=== PATIENT | female | born 1945 | race Caucasian/White ===

== ENCOUNTER 2016-06-02 16:16 | Inpatient (IN) | payer MEDICARE, OTHER ==
--- NOTE | 2016-06-02 17:15 | XR ---
EXAMINATION TYPE: XR chest 1V portable DATE OF EXAM: 06/02/2016 5:05 PM COMPARISON: NONE HISTORY: Heart murmur and blood clots, weakness. TECHNIQUE: Single frontal view of the chest is obtained. FINDINGS: EKG leads noted. There is no focal air space opacity, pleural effusion, or pneumothorax se en. The cardiac silhouette size is within normal limits. The osseous structures are intact. IMPRESSION: No acute process.
[2016-06-02 17:29] LABS: Basophils # (A) 0.1 k/uL (0-0.2); Basophils % (A) 1 %; CHCM 32.7; Eosinophils # (A) 0.4 k/uL (0-0.7); Eosinophils % (A) 4 %; HDW 2.62; HGB 11.4 gm/dL (11.4-16.0); Luc # (Auto) 0.17; Luc % (Auto) 1; Lymphocytes # (A) 2.6 k/uL (1.0-4.8); Lymphocytes % (A) 22 %; MCH 30.2 pg (25.0-35.0); MCHC 31.8 g/dL (31.0-37.0); MCV 95.2 fL (80.0-100.0); Mean Platelet Volume 7.6; Monocytes # (A) 0.5 k/uL (0-1.0); Monocytes % (A) 4 %; Neutrophils # (A) 8.1 k/uL (1.3-7.7); Neutrophils % (A) 68 %; RBC 3.78 m/uL (3.80-5.40); RDW 13.3 % (11.5-15.5); WBC 11.8 k/uL (3.8-10.6); WBC (Perox) 12.28
[2016-06-02 17:37] LABS: Calcium 9.3 mg/dL (8.4-10.2); Potassium 5.3 mmol/L (3.5-5.1); Total Bilirubin 0.4 mg/dL (0.2-1.3); Total Protein 6.5 g/dL (6.3-8.2)
[2016-06-02] MEDS ORDERED: MORPHINE SULFATE 4 MG/ML SYRINGE IV STA (17:47)
--- NOTE | 2016-06-02 18:09 | CT ---
EXAMINATION TYPE: CT abdomen pelvis wo con DATE OF EXAM: 06/02/2016 5:58 PM COMPARISON: October 17, [address] HISTORY: Right lower quadrant pain. CT DLP: 275.40 mGycm Automated exposure control for dose reduction was used. TECHNIQUE: Helical acquisition of images was performed from the lung bases through the pelvis. FINDINGS: LUNG BASES: No significant abnormality is appreciated. LIVER/GB: No significant abnormality is appreciated. PANCREAS: No significant abnormality is seen. SPLEEN: No significant abnormality is seen. ADRENALS: There is stable appearance to the previously noted hypodense left adrenal mass, consistent with lipid rich adenoma. KIDNEYS: The left kidney is again not demonstrated. The right kidney is hypertrophied and demonstrate s approximately 10 renal calcifications measuring up to 4 mm diameter. These are similar in appearanc e and location compared to prior study. There is no hydronephrosis or hydroureter. RETROPERITONEAL ADENOPATHY: None visualized URINARY BLADDER: No significant abnormality is seen. PELVIC ADENOPATHY: None visualized. OSSEOUS STRUCTURES: There are prominent multilevel degenerative spine changes appreciated. BOWEL: No significant abnormality is seen. OTHER: Noncontrast CT is limited in its sensitivity for focal visceral lesions and for intravascular pathology. IMPRESSION: NO ACUTE PROCESS. SPECIFICALLY, NO CT CORRELATE FOR THE RIGHT LOWER QUADRANT PAIN.
[2016-06-02 18:14] LABS: Appearance,Urine Cloudy (Clear); Bacteria,Urine Many /hpf; Bilirubin,Urine Negative (Negative); Glucose,Urine (UA) 3+ (Negative); Ketones,Urine Negative (Negative); Leukocyte Esterase,Urine Large (Negative); Mucus,Urine Rare /hpf; Nitrite,Urine Positive (Negative); PH, Urine 5.5 (5.0-8.0); Particle Count 7356; Protein,Urine 3+ (Negative); RBC,Urine 4 /hpf (0-5); Specific Gravity,Urine 1.013 (1.001-1.035); Squamous Epithelial Cell,Urine 3 /hpf (0-4); UA Billing (MACRO vs. MICRO) MICRO; Urobilinogen,Urine <2.0 mg/dL (<2.0); WBC,Urine 109 /hpf (0-5)
[2016-06-02] MEDS ORDERED: TOBRAMYCIN PER PHARMACY MISCELLANE SCH (19:15)
[2016-06-02] MEDS ORDERED: MEROPENEM 2 GM in SODIUM CHLORIDE 0.9% 100 ML IVPB STA (19:15)
[2016-06-02] MEDS ORDERED: TOBRAMYCIN SULFATE 80 MG in SODIUM CHLORIDE 0.9% 100 ML IVPB ONE (20:00)
[2016-06-02] MEDS ORDERED: SODIUM CHLORIDE 0.9% 2,000 ML IV ONE (20:13)
[2016-06-02] MEDS ORDERED: NALOXONE 0.4 MG/ML 1 ML VIAL IV PRN (20:22)
[2016-06-02] MEDS ORDERED: ACETAMINOPHEN TAB 325 MG TAB PO PRN (20:22)
[2016-06-02] MEDS ORDERED: oxyCODONE ER 15 MG TAB.ER.12H PO PRN (20:26)
[2016-06-02] MEDS ORDERED: FLUTICASONE 50MCG/SPRAY NASAL 16GM EA NOSTRIL PRN (20:26)
[2016-06-02] MEDS ORDERED: ALBUTEROL NEBULIZED 2.5 MG/3 ML INHALATION PRN (20:26)
--- NOTE | 2016-06-02 20:41 | ED ---
Weakness HPI - General Chief complaint: Weakness Stated complaint: Weakness, Abd Pain Time Seen by Provider: 06/02/16 16:35 Source: patient Mode of arrival: wheelchair Limitations: no limitations - History of Present Illness Initial comments: This patient is a 70-year-old woman who presents to be evaluated for worsening of some generalized weakness and fatigue. She states is been getting worse over the past couple of days. What precipitated her visit today is that she was walking to her car and then nearly passed out. The patient states that she has been having treatment for urinary tract infection but was unable to finish the course of antibiotics due to nausea and vomiting. She does not recall name of the antibiotic. She does have some suprapubic discomfort. Patient has been feeling cold but has not noted a fever. Patient denies any chest symptoms, including no cough, chest pain, dyspnea. MD Complaint: generalized weakness, lack of energy, difficulty walking -: days(s) Location: generalized - Related Data Home Medications Medication Instructions Recorded Confirmed Albuterol Inhaler [Ventolin Hfa 2 puff INHALATION RT-Q6H PRN 06/02/16 06/02/16 Inhaler] Cilostazol [Pletal] 100 mg PO BID 06/02/16 06/02/16 Clopidogrel [Plavix] 75 mg PO DAILY 06/02/16 06/02/16 Ezetimibe [Zetia] 10 mg PO DAILY 06/02/16 06/02/16 Famotidine [Pepcid] 20 mg PO BID 06/02/16 06/02/16 Fluticasone Nasal [place] [Flonase 2 spr EA NOSTRIL DAILY PRN 06/02/16 06/02/16 Nasal [place]] Gabapentin 800 mg PO TID 06/02/16 06/02/16 Hydrocodone/Acetaminophen [[place] 1 tab PO TID 06/02/16 06/02/16 10-325] Insulin NPH Hum/Reg Insulin Hm See Protocol SQ BID 06/02/16 06/02/16 [NovoLIN 70-30 100 UNIT/ML VIAL] Lisinopril [Zestril] 10 mg PO DAILY 06/02/16 06/02/16 Sertraline HCl [Zoloft] 100 mg PO DAILY 06/02/16 06/02/16 oxyCODONE ER [OxyCONTIN 15MG E.R] 15 mg PO DAILY PRN 06/02/16 06/02/16 Allergies Allergy/AdvReac Type Severity Reaction Status Date / Time Iodinated Contrast Media - Allergy Severe Anaphylaxis Verified 06/02/16 16:48 Oral and [Iodinated Contrast Media - IV Dye] Iodine and Iodide Containing Allergy Severe Rash/Hives/ Verified 06/02/16 16:48 Produc Swelling aspirin Allergy Rash/Hives Verified 06/02/16 16:48 cephalexin monohydrate Allergy Swelling Verified 06/02/16 16:48 [From Keflex] ciprofloxacin Allergy Unknown Verified 06/02/16 16:48 Penicillins Allergy Swelling Verified 06/02/16 16:48 Sulfa (Sulfonamide Allergy Rash/Hives Verified 06/02/16 16:48 Antibiotics) Review of Systems ROS Statement: Those systems with pertinent positive or pertinent negative responses have been documented in the HPI. ROS Other: All systems not noted in ROS Statement are negative. Constitutional: Reports: chills, weakness. Denies: fever Respiratory: Denies: cough, dyspnea, hemoptysis Cardiovascular: Reports: syncope (Near syncope). Denies: chest pain, palpitations, edema Gastrointestinal: Reports: abdominal pain (Suprapubic pressure), nausea, vomiting. Denies: diarrhea, constipation Genitourinary: Reports: urgency, dysuria, frequency Musculoskeletal: Denies: back pain Skin: Denies: rash Neurological: Reports: weakness (Neurologic). Denies: headache, numbness, paresthesias Past Medical History Past Medical History: Asthma, Coronary Artery Disease (CAD), Chest Pain / Angina , COPD, CVA/TIA, Diabetes Mellitus, Deep Vein Thrombosis (DVT), Hyperlipidemia, Hypertension, Myocardial Infarction ([place]), Osteoarthritis (OA), Pneumonia, Renal Disease Additional Past Medical History / Comment(s): 02-18-15 ADMITTED TO [facility] WITH C/P ELEVATED TROPS(stated was just d/c from [facility] 02-17-15), UTI. OTHER PAST HX INCLUDES: heart murmur, trouble staying asleep gets up about evry 2 hours. Last Myocardial Infarction Date:: 10 years ago History of Any Multi-Drug Resistant Organisms: None Reported Past Surgical History: Appendectomy, Hysterectomy Additional Past Surgical History / Comment(s): lt femoral-pop bypass and amputation lt 3rd toe Mar 2014. Amputation 2nd, 3rd, 4th toe Past Anesthesia/Blood Transfusion Reactions: No Reported Reaction Past Psychological History: Anxiety, Depression Additional Psychological History / Comment(s): pt stated has some mild depression d/t medical problems but not hopelss-denies any thoughts of harming self or others, no suicidal ideations.stated recent moved to a new apt that has no w/c ramp so she can't use her wheel chair. does use a cane and stated has had some falls. Smoking Status: Former smoker Past Alcohol Use History: None Reported Additional Past Alcohol Use History / Comment(s): Patient is a smoker of 2 packs per day for 55 years stated she quit officially 4 days ago. She denies any medical marijuana, marijuana, street drug use. She denies any alcohol use or abuse. She has been on disability for long period of time. She is currently living alone. Past Drug Use History: None Reported - Past Family History Mother Family Medical History: Cancer, Diabetes Mellitus, Myocardial Infarction ([place]) Father Family Medical History: Renal Disease General Exam Limitations: no limitations General appearance: alert, in no apparent distress, obese Head exam: Present: atraumatic, normocephalic Eye exam: Present: normal appearance. Absent: scleral icterus, conjunctival injection ENT exam: Present: mucous membranes dry Neck exam: Present: normal inspection, full ROM. Absent: meningismus Respiratory exam: Present: normal lung sounds bilaterally. Absent: respiratory distress, wheezes, rales, rhonchi, stridor Cardiovascular Exam: Present: regular rate, normal rhythm, systolic murmur. Absent: diastolic murmur, rubs, gallop GI/Abdominal exam: Present: soft, tenderness (There is moderate suprapubic tenderness.), diminished bowel sounds. Absent: distended, guarding, rebound, mass, pulsatile mass, hernia Extremities exam: Present: normal inspection, normal capillary refill. Absent: pedal edema, calf tenderness Back exam: Absent: CVA tenderness (R), CVA tenderness (L) Neurological exam: Present: alert, oriented X3, CN II-XII intact. Absent: motor sensory deficit Skin exam: Present: warm, dry, intact, normal color. Absent: rash Course Vital Signs 06/02/16 06/02/16 16:20 19:47 Temperature 98.6 F Pulse Rate 85 72 Respiratory 18 16 Rate Blood Pressure 138/73 153/70 O2 Sat by Pulse 97 97 Oximetry EKG Findings - EKG Results: EKG: interpreted by ERMD, sinus rhythm (Rate approximately 84 bpm), normal axis , normal QRS (RS duration is slightly prolonged at [address]/T, not changed from: (QRS duration is Slightly prolonged at 128 ms) - Blocks, [place], Hypertrophy, ST Abn: AV and intraventricular conduction: right bundle branch block (fixed/ intermittent, complete/incomplete) Medical Decision Making - Medical Decision Making Patient is a 70-year-old woman being treated for urinary tract infection but was unable to complete the course of antibiotics that was subsequently found to be Macrodantin, due to nausea and vomiting. She does have some minimal elevation of lactic acid and there is markedly pyuria. Antibiotic therapy started, in conjunction with patient's ALLERGIES. Patient also receiving IV fluids and lactic acid be rechecked. - Lab Data Result diagrams: 06/02/16 17:15 06/02/16 17:15 Lab Results 06/02/16 06/02/16 06/02/16 Range/Units 17:15 17:15 17:15 WBC 11.8 H (3.8-10.6) k/uL RBC 3.78 L (3.80-5.40) m/uL Hgb 11.4 (11.4-16.0) gm/dL Hct 36.0 (34.0-46.0) % MCV 95.2 (80.0-100.0) fL MCH 30.2 (25.0-35.0) pg MCHC 31.8 (31.0-37.0) g/dL RDW 13.3 (11.5-15.5) % Plt Count 291 (150-450) k/uL Neutrophils % 68 % Lymphocytes % 22 % Monocytes % 4 % Eosinophils % 4 % Basophils % 1 % Neutrophils # 8.1 H (1.3-7.7) k/uL Lymphocytes # 2.6 (1.0-4.8) k/uL Monocytes # 0.5 (0-1.0) k/uL Eosinophils # 0.4 (0-0.7) k/uL Basophils # 0.1 (0-0.2) k/uL Sodium 139 (137-145) mmol/L Potassium 5.3 H (3.5-5.1) mmol/L Chloride 105 (98-107) mmol/L Carbon Dioxide 22 (22-30) mmol/L Anion Gap 12 mmol/L BUN 49 H (7-17) mg/dL Creatinine 1.39 H (0.52-1.04) mg/dL Est GFR (MDRD) Af Amer 45 (>60 ml/min/1.73 sqM) Est GFR (MDRD) Non-Af 37 (>60 ml/min/1.73 sqM) Glucose 345 H (74-99) mg/dL Plasma Lactic Acid Hector 2.1 H (0.7-2.0) mmol/L Calcium 9.3 (8.4-10.2) mg/dL Total Bilirubin 0.4 (0.2-1.3) mg/dL AST 11 L (14-36) U/L ALT 25 (9-52) U/L Alkaline Phosphatase 102 (38-126) U/L Troponin I (0.000-0.034) ng/mL Total Protein 6.5 (6.3-8.2) g/dL Albumin 3.6 (3.5-5.0) g/dL Urine Color Urine Appearance (Clear) Urine pH (5.0-8.0) Ur Specific [place] (1.001-1.035) Urine Protein (Negative) Urine Glucose (UA) (Negative) Urine Ketones (Negative) Urine Blood (Negative) Urine Nitrate (Negative) Urine Bilirubin (Negative) Urine Urobilinogen (<2.0) mg/dL Ur Leukocyte Esterase (Negative) Urine RBC (0-5) /hpf Urine WBC (0-5) /hpf Urine WBC Clumps (None) /hpf Ur Squamous Epith Cells (0-4) /hpf Urine Bacteria (None) /hpf Hyaline Casts (0-2) /lpf Urine Mucus (None) /hpf 06/02/16 06/02/16 Range/Units 17:15 18:00 WBC (3.8-10.6) k/uL RBC (3.80-5.40) m/uL Hgb (11.4-16.0) gm/dL Hct (34.0-46.0) % MCV (80.0-100.0) fL MCH (25.0-35.0) pg MCHC (31.0-37.0) g/dL RDW (11.5-15.5) % Plt Count (150-450) k/uL Neutrophils % % Lymphocytes % % Monocytes % % Eosinophils % % Basophils % % Neutrophils # (1.3-7.7) k/uL Lymphocytes # (1.0-4.8) k/uL Monocytes # (0-1.0) k/uL Eosinophils # (0-0.7) k/uL Basophils # (0-0.2) k/uL Sodium (137-145) mmol/L Potassium (3.5-5.1) mmol/L Chloride (98-107) mmol/L Carbon Dioxide (22-30) mmol/L Anion Gap mmol/L BUN (7-17) mg/dL Creatinine (0.52-1.04) mg/dL Est GFR (MDRD) Af Amer (>60 ml/min/1.73 sqM) Est GFR (MDRD) Non-Af (>60 ml/min/1.73 sqM) Glucose (74-99) mg/dL Plasma Lactic Acid Hector (0.7-2.0) mmol/L Calcium (8.4-10.2) mg/dL Total Bilirubin (0.2-1.3) mg/dL AST (14-36) U/L ALT (9-52) U/L Alkaline Phosphatase (38-126) U/L Troponin I 0.015 (0.000-0.034) ng/mL Total Protein (6.3-8.2) g/dL Albumin (3.5-5.0) g/dL Urine Color Yellow Urine Appearance Cloudy H (Clear) Urine pH 5.5 (5.0-8.0) Ur Specific [place] 1.013 (1.001-1.035) Urine Protein 3+ H (Negative) Urine Glucose (UA) 3+ H (Negative) Urine Ketones Negative (Negative) Urine Blood Negative (Negative) Urine Nitrate Positive H (Negative) Urine Bilirubin Negative (Negative) Urine Urobilinogen <2.0 (<2.0) mg/dL Ur Leukocyte Esterase Large H (Negative) Urine RBC 4 (0-5) /hpf Urine WBC 109 H (0-5) /hpf Urine WBC Clumps Moderate H (None) /hpf Ur Squamous Epith Cells 3 (0-4) /hpf Urine Bacteria Many H (None) /hpf Hyaline Casts 2 (0-2) /lpf Urine Mucus Rare H (None) /hpf Disposition Clinical Impression: Urinary tract infection, Lactic acidosis, Hyperglycemia, Acute renal failure Disposition: ADMITTED IP TO THIS HOSP Condition: Fair Referrals: Mallory Hernandez MD [Primary Care Provider] - 1-2 days
[2016-06-02 21:06] LABS: Hemoglobin A1C 9.3 % (4.2-6.1)
[2016-06-02 21:19] LABS: Glucose,Whole Blood 237 mg/dL (75-99)
[2016-06-02] MEDS: INSULIN LISPRO (humaLOG) 300 UNIT/3 ML VIAL SQ SCH (21:22)
[2016-06-02] MEDS: FAMOTIDINE 20 MG TAB PO SCH (21:48)
[2016-06-02] MEDS: GABAPENTIN 400 MG CAP PO SCH (21:48)
[2016-06-02] MEDS: CILOSTAZOL 100 MG TAB PO SCH (21:49)
[2016-06-02] MEDS: HYDROcodone/APAP 10-325MG 1 EACH TAB PO SCH (21:50)
[2016-06-02 21:52] LABS: Glucose,Whole Blood 227 mg/dL (75-99)
[2016-06-02] MEDS: SODIUM CHLORIDE 0.9% 1,000 ML IV SCH (21:53)
[2016-06-02 22:39] LABS: Glucose,Whole Blood 228 mg/dL (75-99)
[2016-06-03] MEDS: HYDROmorphone 1 MG/ML 1 ML SYRINGE IVP PRN ×5 (00:21→20:58)
[2016-06-03] MEDS ORDERED: ALPRAZolam 0.25 MG TAB PO PRN ×2 (01:19→11:13)
[2016-06-03] MEDS: CILOSTAZOL 100 MG TAB PO SCH ×2 (07:36→22:28)
[2016-06-03] MEDS: CLOPIDOGREL 75 MG TAB PO SCH (07:40)
[2016-06-03] MEDS: EZETIMIBE 10 MG TAB PO SCH (07:40)
[2016-06-03] MEDS: GABAPENTIN 400 MG CAP PO SCH ×3 (07:40→22:37)
[2016-06-03] MEDS: FAMOTIDINE 20 MG TAB PO SCH (07:40)
[2016-06-03] MEDS: SERTRALINE 100 MG TAB PO SCH (07:40)
[2016-06-03] MEDS: LISINOPRIL 10 MG TAB PO SCH (07:41)
[2016-06-03] MEDS: HYDROcodone/APAP 10-325MG 1 EACH TAB PO SCH ×3 (07:41→22:36)
[2016-06-03] MEDS: NITROGLYCERIN SL TABS 0.4 MG TAB SUBLINGUAL PRN ×2 (08:05→08:09)
[2016-06-03 08:13] LABS: Glucose,Whole Blood 240 mg/dL (75-99)
[2016-06-03 08:20] LABS: Basophils # (A) 0.1 k/uL (0-0.2); Basophils % (A) 1 %; CH 30.8; CHCM 32.1; Eosinophils # (A) 0.5 k/uL (0-0.7); Eosinophils % (A) 5 %; HCT 35.6 % (34.0-46.0); HDW 2.62; Luc # (Auto) 0.14; Luc % (Auto) 1; Lymphocytes # (A) 1.8 k/uL (1.0-4.8); Lymphocytes % (A) 18 %; MCHC 31.1 g/dL (31.0-37.0); MCV 96.5 fL (80.0-100.0); Mean Platelet Volume 7.3; Monocytes # (A) 0.5 k/uL (0-1.0); Monocytes % (A) 5 %; Neutrophils % (A) 70 %; RBC 3.69 m/uL (3.80-5.40); RDW 13.2 % (11.5-15.5); WBC (Perox) 10.38
[2016-06-03 08:37] LABS: Magnesium 1.6 mg/dL (1.6-2.3); Potassium 5.2 mmol/L (3.5-5.1); Total Bilirubin 0.4 mg/dL (0.2-1.3); Total Protein 6.2 g/dL (6.3-8.2)
[2016-06-03 08:43] LABS: Creatine Kinase <20 U/L (30-135)
[2016-06-03 08:55] LABS: Creatine Kinase MB 0.8 ng/mL (0.0-2.4); Troponin I 0.016 ng/mL (0.000-0.034)
[2016-06-03] MEDS ORDERED: SODIUM POLYSTYRENE SULFONATE 15 GM/60 ML BOTTLE PO STA (10:42)
--- NOTE | 2016-06-03 10:47 | P.HPIM ---
History of Present Illness H&P Date: 06/03/16 Chief Complaint: Weakness and not feeling well This is a 70-year-old female with a known past medical history of asthma, coronary artery disease, COPD, CVA, diabetes mellitus, DVT, peripheral vascular disease, myocardial infarction, hypertension and renal disease. Patient initially presented to the emergency room with worsening generalized weakness and fatigue. She states that she had not been feeling well over the last few days and she was becoming dizzy and felt like she may pass out. She also had been being treated for urinary tract infection. She had been on Macrodantin. She had taken the medication for about 5 days. Patient reports though the medication made her sick she was having nausea and vomiting and finally could not finish the antibiotic. She still is having urinary symptoms with suprapubic pressure and discomfort and with dysuria. She was found to have a positive urinalysis and started on tobramycin in the emergency room. Urine cultures pending. She did have elevated lactic acid at 2.1. White count elevated 11.8. A computed tomography scan of the abdomen had shown no acute changes. Chest x-ray was negative. EKG had shown a normal sinus rhythm with a right bundle branch block. She initially was admitted to a regular medical floor however this morning she had complaints of sharp chest pains in the left side of her chest. Also do some discomfort in both arms with nausea and sweating. EKG was obtained and it showed T-wave inversion. She was then transferred to carrier clinic and cardiology has been consulted. Troponins are negative 2 sets. Patient denies any fever. But she was having chills at home. Denies any symptoms bowel movement changes. Denies any shortness of breath. Also patient did have some evidence of accelerated hypertension on admission. Review of Systems Please refer to HPI otherwise unremarkable Past Medical History Past Medical History: Asthma, Coronary Artery Disease (CAD), Chest Pain / Angina , COPD, CVA/TIA, Diabetes Mellitus, Deep Vein Thrombosis (DVT), Hyperlipidemia, Hypertension, Myocardial Infarction ([place]), Osteoarthritis (OA), Pneumonia, Renal Disease Additional Past Medical History / Comment(s): pt states she has one kidney, heart murmur, trouble staying asleep, hemroids, claustrophobic Last Myocardial Infarction Date:: around 2008 History of Any Multi-Drug Resistant Organisms: None Reported Past Surgical History: Appendectomy, Hysterectomy Additional Past Surgical History / Comment(s): lt femoral-pop bypass and amputation. Mar 2014. Amputation 2nd, 3rd, 4th toe Past Anesthesia/Blood Transfusion Reactions: No Reported Reaction Past Psychological History: Anxiety, Depression Additional Psychological History / Comment(s): pt stated has some mild depression d/t medical problems but not hopelss-denies any thoughts of harming self or others, no suicidal ideations.stated recent moved [place] [facility] that has no w/c ramp so she can't use her wheel chair. does use a cane and stated has had some falls. Smoking Status: Former smoker Past Alcohol Use History: None Reported Additional Past Alcohol Use History / Comment(s): Patient is a smoker of 2 packs per day for 55 years stated she quit officially 4 days ago. She denies any medical marijuana, marijuana, street drug use. She denies any alcohol use or abuse. She has been on disability for long period of time. She is currently living alone. Past Drug Use History: None Reported - Past Family History Mother Family Medical History: Cancer, Diabetes Mellitus, Myocardial Infarction ([place]) Additional Family Medical History / Comment(s): from aortic anurysm Father Family Medical History: Renal Disease Medications and Allergies Home Medications Medication Instructions Recorded Confirmed Type Albuterol Inhaler [Ventolin Hfa 2 puff INHALATION RT-Q6H PRN 06/02/16 06/02/16 History Inhaler] Cilostazol [Pletal] 100 mg PO BID 06/02/16 06/02/16 History Clopidogrel [Plavix] 75 mg PO DAILY 06/02/16 06/02/16 History Ezetimibe [Zetia] 10 mg PO DAILY 06/02/16 06/02/16 History Famotidine [Pepcid] 20 mg PO BID 06/02/16 06/02/16 History Fluticasone Nasal [place] [Flonase 2 spr EA NOSTRIL DAILY PRN 06/02/16 06/02/16 History Nasal [place]] Gabapentin 800 mg PO TID 06/02/16 06/02/16 History Hydrocodone/Acetaminophen [[place] 1 tab PO TID 06/02/16 06/02/16 History 10-325] Insulin NPH Hum/Reg Insulin Hm See Protocol SQ BID 06/02/16 06/02/16 History [NovoLIN 70-30 100 UNIT/ML VIAL] Lisinopril [Zestril] 10 mg PO DAILY 06/02/16 06/02/16 History Sertraline HCl [Zoloft] 100 mg PO DAILY 06/02/16 06/02/16 History oxyCODONE ER [OxyCONTIN 15MG E.R] 15 mg PO DAILY PRN 06/02/16 06/02/16 History Allergies Allergy/AdvReac Type Severity Reaction Status Date / Time Iodinated Contrast Media - Allergy Severe Anaphylaxis Verified 06/02/16 16:48 Oral and [Iodinated Contrast Media - IV Dye] Iodine and Iodide Containing Allergy Severe Rash/Hives/ Verified 06/02/16 16:48 Produc Swelling aspirin Allergy Rash/Hives Verified 06/02/16 16:48 cephalexin monohydrate Allergy Swelling Verified 06/02/16 16:48 [From Keflex] ciprofloxacin Allergy Unknown Verified 06/02/16 16:48 Penicillins Allergy Swelling Verified 06/02/16 16:48 Sulfa (Sulfonamide Allergy Rash/Hives Verified 06/02/16 16:48 Antibiotics) Physical Exam Vitals: Vital Signs Temp Pulse Resp BP BP Pulse Ox 06/03/16 08:47 97.6 F 73 20 149/68 97 06/03/16 08:12 158/72 94 L 06/03/16 08:09 169/77 06/03/16 08:05 197/89 06/03/16 07:54 212/92 06/03/16 07:35 77 219/96 100 06/02/16 21:52 98.3 F 77 20 163/84 98 Intake and Output 06/02/16 06/03/16 06/03/16 22:59 06:59 14:59 Intake Total 400 200 Balance 400 200 Intake: Oral 400 200 Other: Voiding Method Toilet Bedside Commode # Voids 1 Weight 65.771 kg 66.451 kg Head normocephalic Neck supple Lungs clear to auscultation bilaterally no wheezing or crackles Heart regular rate and rhythm S1-S2, no rub or gallop Abdomen is soft nontender nondistended positive bowel sounds no hepatosplenomegaly Extremities no edema Neuro alert and orientated to 3. Facial drooping present from her old stroke Results CBC & Chem 7: 06/03/16 08:09 06/03/16 08:09 Labs: Abnormal Lab Results - Last 24 Hours (Table) 06/02/16 06/02/16 06/02/16 Range/Units 21:18 21:50 22:35 RBC (3.80-5.40) m/uL Hgb (11.4-16.0) gm/dL Potassium (3.5-5.1) mmol/L Chloride (98-107) mmol/L BUN (7-17) mg/dL Creatinine (0.52-1.04) mg/dL Glucose (74-99) mg/dL POC Glucose (mg/dL) 237 H 227 H 228 H (75-99) mg/dL AST (14-36) U/L Total Creatine Kinase (30-135) U/L Total Protein (6.3-8.2) g/dL Albumin (3.5-5.0) g/dL 06/03/16 06/03/16 06/03/16 Range/Units 08:09 08:09 08:09 RBC 3.69 L (3.80-5.40) m/uL Hgb 11.0 L (11.4-16.0) gm/dL Potassium 5.2 H (3.5-5.1) mmol/L Chloride 110 H (98-107) mmol/L BUN 38 H (7-17) mg/dL Creatinine 1.12 H (0.52-1.04) mg/dL Glucose 241 H (74-99) mg/dL POC Glucose (mg/dL) (75-99) mg/dL AST 9 L (14-36) U/L Total Creatine Kinase <20 L (30-135) U/L Total Protein 6.2 L (6.3-8.2) g/dL Albumin 3.3 L (3.5-5.0) g/dL 06/03/16 Range/Units 08:12 RBC (3.80-5.40) m/uL Hgb (11.4-16.0) gm/dL Potassium (3.5-5.1) mmol/L Chloride (98-107) mmol/L BUN (7-17) mg/dL Creatinine (0.52-1.04) mg/dL Glucose (74-99) mg/dL POC Glucose (mg/dL) 240 H (75-99) mg/dL AST (14-36) U/L Total Creatine Kinase (30-135) U/L Total Protein (6.3-8.2) g/dL Albumin (3.5-5.0) g/dL Thrombosis Risk Factor Assmnt - Choose All That Apply Any of the Below Risk Factors Present?: Yes Each Factor Represents 1 point: Abnormal pulmonary function (COPD), Obesity ( BMI >25) Other Risk Factors: Yes Each Risk Factor Represents 2 Points: Age 61-74 years Other congenital or acquired thrombophilia - If yes, enter type in comment: No Thrombosis Risk Factor Assessment Total Risk Factor Score: 4 Thrombosis Risk Factor Assessment Level: Moderate Risk Assessment and Plan Plan: 1. UTI unable to tolerate outpatient antibiotic with Macrodantin. Urinalysis is positive. Checking urine culture. Continue with the tobramycin. 2. Episode of chest pain with EKG showing T-wave inversion. Patient transferred to telemetry floor. Cardiology consulted. First 2 troponins are negative. Patient reports last heart catheterization was about 5 years ago with no stents placed 3. Nausea and vomiting secondary to oral antibiotic. Now resolved. 4. Leukocytosis present on admission secondary to UTI. Now resolved. 5. Elevated lactic acid level of 2.1 patient was given IV fluids and now it is down to 1.7. This is secondary to the UTI. 6. Acute on Chronic kidney disease stage IIIB. Acute kidney injury secondary to dehydration. Creatinine close to baseline now at 1.12. Fluids are currently KVO 7. Hyperkalemia: Potassium 5.2. We'll give 1 dose of Kayexalate. If potassium remains elevated may need to discontinue or decrease lisinopril 8. Insulin-dependent diabetes mellitus type 2: Resume her NovoLog 70/30 and glipizide. Also add sliding scale coverage hemoglobin A1c 9.3 9. Nicotine dependence: Patient was counseled on smoking cessation for approximately 5 minutes. Add nicotine patch 10. Patient has history of peripheral vascular disease with previous amputations of the toes 11. Previous history of myocardial infarction and coronary artery disease GI prophylaxis Pepcid and DVT prophylaxis subcu heparin Time with Patient: Greater than 30 (Greater than 50% of the total time spent in counseling and coordination of care.I performed an examination of the patient and discussed their management with the physician Teaching Artist. I have reviewed the Physician Teaching Artist's notes and agree with the documented findings and plan of care)
--- NOTE | 2016-06-03 11:01 | P.CRDCN ---
History of Present Illness Consult date: 06/03/16 Reason for Consult (text): chest pain, EKG changes Chief complaint: UTI, chest pain History of present illness: This is a pleasant 70-year-old female who has a guardian. She has a known history of asthma, COPD, CVA, diabetes, hyperlipidemia, hypertension, [place], CAD, peripheral vascular disease with history of toe amputations to her left foot secondary to questionable gangrene and previous episodes chest pain. Patient presented to the emergency department with complaints of generalized weakness and fatigue as well as near syncope. She had recently been seen in her primary care physician's office and has been treated with antibiotics for a UTI for which she could not finish due to nausea and vomiting, patient is unsure of which antibiotic she was taking. After admission to fourth floor, patient developed some chest pain she described as sharp with nausea and shortness of breath. The pain radiated to her left arm. EKG did show some ST- T wave changes. Patient was transferred to [facility]. Laboratory values show potassium 5.2, BUN 38 and creatinine 1.12, troponin 0.016. Upon examination, patient is resting comfortably in bed. She denies any further complaints of chest discomfort or shortness of breath. She does complain of some suprapubic discomfort with palpation. She has no complaints of dizziness or lightheadedness, syncope or edema. Past Medical History Past Medical History: Asthma, Coronary Artery Disease (CAD), Chest Pain / Angina , COPD, CVA/TIA, Diabetes Mellitus, Deep Vein Thrombosis (DVT), Hyperlipidemia, Hypertension, Myocardial Infarction ([place]), Osteoarthritis (OA), Pneumonia, Renal Disease Additional Past Medical History / Comment(s): pt states she has one kidney, heart murmur, trouble staying asleep, hemroids, claustrophobic Last Myocardial Infarction Date:: around 2008 History of Any Multi-Drug Resistant Organisms: None Reported Past Surgical History: Appendectomy, Hysterectomy Additional Past Surgical History / Comment(s): lt femoral-pop bypass and amputation. Mar 2014. Amputation 2nd, 3rd, 4th toe Past Anesthesia/Blood Transfusion Reactions: No Reported Reaction Past Psychological History: Anxiety, Depression Additional Psychological History / Comment(s): pt stated has some mild depression d/t medical problems but not hopelss-denies any thoughts of harming self or others, no suicidal ideations.stated recent moved to a [facility] that has no w/c ramp so she can't use her wheel chair. does use a cane and stated has had some falls. Smoking Status: Former smoker Past Alcohol Use History: None Reported Additional Past Alcohol Use History / Comment(s): Patient is a smoker of 2 packs per day for 55 years stated she quit officially 4 days ago. She denies any medical marijuana, marijuana, street drug use. She denies any alcohol use or abuse. She has been on disability for long period of time. She is currently living alone. Past Drug Use History: None Reported - Past Family History Mother Family Medical History: Cancer, Diabetes Mellitus, Myocardial Infarction ([place]) Additional Family Medical History / Comment(s): from aortic anurysm Father Family Medical History: Renal Disease Medications and Allergies Home Medications Medication Instructions Recorded Confirmed Type Albuterol Inhaler [Ventolin Hfa 2 puff INHALATION RT-Q6H PRN 06/02/16 06/02/16 History Inhaler] Cilostazol [Pletal] 100 mg PO BID 06/02/16 06/02/16 History Clopidogrel [Plavix] 75 mg PO DAILY 06/02/16 06/02/16 History Ezetimibe [Zetia] 10 mg PO DAILY 06/02/16 06/02/16 History Famotidine [Pepcid] 20 mg PO BID 06/02/16 06/02/16 History Fluticasone Nasal [place] [Flonase 2 spr EA NOSTRIL DAILY PRN 06/02/16 06/02/16 History Nasal [place]] Gabapentin 800 mg PO TID 06/02/16 06/02/16 History Hydrocodone/Acetaminophen [[place] 1 tab PO TID 06/02/16 06/02/16 History 10-325] Insulin NPH Hum/Reg Insulin Hm See Protocol SQ BID 06/02/16 06/02/16 History [NovoLIN 70-30 100 UNIT/ML VIAL] Lisinopril [Zestril] 10 mg PO DAILY 06/02/16 06/02/16 History Sertraline HCl [Zoloft] 100 mg PO DAILY 06/02/16 06/02/16 History oxyCODONE ER [OxyCONTIN 15MG E.R] 15 mg PO DAILY PRN 06/02/16 06/02/16 History Allergies Allergy/AdvReac Type Severity Reaction Status Date / Time Iodinated Contrast Media - Allergy Severe Anaphylaxis Verified 06/02/16 16:48 Oral and [Iodinated Contrast Media - IV Dye] Iodine and Iodide Containing Allergy Severe Rash/Hives/ Verified 06/02/16 16:48 Produc Swelling aspirin Allergy Rash/Hives Verified 06/02/16 16:48 cephalexin monohydrate Allergy Swelling Verified 06/02/16 16:48 [From Keflex] ciprofloxacin Allergy Unknown Verified 06/02/16 16:48 Penicillins Allergy Swelling Verified 06/02/16 16:48 Sulfa (Sulfonamide Allergy Rash/Hives Verified 06/02/16 16:48 Antibiotics) Physical Exam Vitals: Vital Signs Temp Pulse Resp BP BP Pulse Ox 06/03/16 08:12 158/72 94 L 06/03/16 08:09 169/77 06/03/16 08:05 197/89 06/03/16 07:54 212/92 06/03/16 07:35 77 219/96 100 06/02/16 21:52 98.3 F 77 20 163/84 98 Intake and Output 06/02/16 06/03/16 06/03/16 22:59 06:59 14:59 Intake Total 400 200 Balance 400 200 Intake: Oral 400 200 Other: Voiding Method Toilet Bedside Commode # Voids 1 Weight 65.771 kg 66.451 kg PHYSICAL EXAMINATION: HEENT: Head is atraumatic, normocephalic. Pupils equal, round. Neck is supple. There is no elevated jugular venous pressure. HEART EXAMINATION: Heart sounds regular, S1 and S2 normal. No murmur or gallop heard. CHEST EXAMINATION: Lungs feel diminished air entry bilaterally. No chest wall tenderness is noted on palpation or with deep breathing. ABDOMEN: Soft, tenderness to suprapubic area upon palpation. Bowel sounds are heard. No organomegaly noted. EXTREMITIES: 1+ peripheral pulses with no evidence of peripheral edema and no calf tenderness noted. Her amputation to 3 toes to the left foot noted. NEUROLOGIC patient is awake, alert and oriented x3. . Results 06/03/16 08:09 06/03/16 08:09 Cardiac Enzymes 06/03/16 06/03/16 Range/Units 08:09 08:09 AST 9 L (14-36) U/L CK-MB (CK-2) 0.8 (0.0-2.4) ng/mL Troponin I 0.016 (0.000-0.034) ng/mL CBC 06/03/16 Range/Units 08:09 WBC 10.0 (3.8-10.6) k/uL RBC 3.69 L (3.80-5.40) m/uL Hgb 11.0 L (11.4-16.0) gm/dL Hct 35.6 (34.0-46.0) % Plt Count 275 (150-450) k/uL Comprehensive Metabolic Panel 06/03/16 Range/Units 08:09 Sodium 140 (137-145) mmol/L Potassium 5.2 H (3.5-5.1) mmol/L Chloride 110 H (98-107) mmol/L Carbon Dioxide 23 (22-30) mmol/L BUN 38 H (7-17) mg/dL Creatinine 1.12 H (0.52-1.04) mg/dL Glucose 241 H (74-99) mg/dL Calcium 9.0 (8.4-10.2) mg/dL AST 9 L (14-36) U/L ALT 28 (9-52) U/L Alkaline Phosphatase 98 (38-126) U/L Total Protein 6.2 L (6.3-8.2) g/dL Albumin 3.3 L (3.5-5.0) g/dL Current Medications Generic Name Dose Route Start Last Admin Trade Name Freq PRN Reason Stop Dose Admin Acetaminophen 650 mg 06/02/16 20:22 Tylenol Tab PO Q6HR PRN Mild Pain or Fever > 100.5 Acetaminophen/Hydrocodone Bitart 1 each 06/02/16 22:00 06/03/16 07:41 [place] 10 PO 1 each TID VINH Administration Albuterol Sulfate 2.5 mg 06/02/16 20:26 Ventolin Nebulized INHALATION RT-Q6H PRN Shortness Of Breath Alprazolam 0.25 mg 06/03/16 01:19 Xanax PO HS PRN Anxiety Cilostazol 100 mg 06/02/16 21:00 06/03/16 07:36 Pletal PO Not Given BID VINH Clopidogrel Bisulfate 75 mg 06/03/16 09:00 06/03/16 07:40 Plavix PO 75 mg DAILY VINH Administration Ezetimibe 10 mg 06/03/16 09:00 06/03/16 07:40 Zetia PO 10 mg DAILY VINH Administration Famotidine 20 mg 06/02/16 21:00 06/03/16 07:40 Pepcid PO 20 mg BID VINH Administration Fluticasone Propionate 2 spray 06/02/16 20:26 Flonase Nasal [place] EA NOSTRIL DAILY PRN Allergy Symptoms Gabapentin 800 mg 06/02/16 22:00 06/03/16 07:40 Neurontin PO 800 mg TID VINH Administration Hydromorphone HCl 0.5 mg 06/03/16 00:11 06/03/16 05:24 Dilaudid IVP 0.5 mg Q4HR PRN Administration Severe Pain Tobramycin Sulfate 80 mg/ 102 mls @ 100 mls/hr 06/03/16 12:00 Sodium Chloride IV Q16H VIN[facility] Sodium Chloride 1,000 mls @ 20 mls/hr 06/02/16 20:30 06/02/16 21:53 Saline 0.9% IV 20 mls/hr .Q24H [facility] Administration Insulin Human Lispro 0 unit 06/02/16 21:00 06/02/16 21:22 Humalog SQ 3 unit ACHS [facility] Administration Protocol Lisinopril 10 mg 06/03/16 09:00 06/03/16 07:41 Zestril PO 10 mg DAILY [facility] Administration Naloxone HCl 0.2 mg 06/02/16 20:22 Narcan IV Q2M PRN Opioid Reversal Nitroglycerin 0.4 mg 06/03/16 08:03 06/03/16 08:09 Nitrostat SUBLINGUAL 0.4 mg Q5M PRN Administration Chest Pain Oxycodone HCl 15 mg 06/02/16 20:26 Oxycontin 15mg E.R. PO DAILY PRN Pain Sertraline HCl 100 mg 06/03/16 09:00 06/03/16 07:40 Zoloft PO 100 mg DAILY [facility] Administration Intake and Output 06/02/16 06/03/16 06/03/16 22:59 06:59 14:59 Intake Total 400 200 Balance 400 200 Intake: Oral 400 200 Other: Voiding Method Toilet Bedside Commode # Voids 1 Weight 65.771 kg 66.451 kg 06/03/16 08:09 06/03/16 08:09 Assessment and Plan Plan: Assessment and plan #1 urinary tract infection, receiving IV antibiotics #2 chest pain with EKG changes, awaiting second and third set of troponins #3 history of COPD and asthma #4 diabetes mellitus #5 hypertension #6 hyperlipidemia #7 history of DVT From cardiology's perspective, we will obtain 2-D echo with Doppler to assess LV function. Patient does require cardiac catheterization as EKG changes are strongly suggestive of ischemia. The patient will require pre-medication due to iodine allergy. Further recommendations depending on catheterization findings. LITERARY WRITER note has been reviewed, I agree with a documented findings and plan of care. Patient was seen and examined.
[2016-06-03] MEDS ORDERED: ATORVASTATIN 80 MG TAB PO STA (11:13)
[2016-06-03] MEDS ORDERED: ALPRAZolam 0.5 MG TAB PO PRN (11:13)
[2016-06-03] MEDS ORDERED: NITROGLYCERIN SL TABS 0.4 MG TAB SUBLINGUAL PRN (11:13)
[2016-06-03] MEDS ORDERED: SODIUM CHLORIDE 0.9% 1,000 ML in EMPTY BAG 1 BAG IV ONE (11:13)
[2016-06-03] MEDS ORDERED: methylPREDNISolone SOD SUCCI 125 MG/2 ML VIAL IV STA (11:16)
[2016-06-03] MEDS ORDERED: diphenhydrAMINE 50 MG/ML 1 ML VIAL IVP STA (11:16)
[2016-06-03] MEDS: INSULIN LISPRO (humaLOG) 300 UNIT/3 ML VIAL SQ SCH ×4 (11:39→22:32)
[2016-06-03 11:47] LABS: Glucose,Whole Blood 213 mg/dL (75-99)
[2016-06-03] MEDS ORDERED: TOBRAMYCIN SULFATE 80 MG in SODIUM CHLORIDE 0.9% 100 ML IV SCH (12:00)
[2016-06-03] MEDS ORDERED: SODIUM CHLORIDE 0.9% (PF) 10 ML VIAL ONE (12:24)
[2016-06-03] MEDS ORDERED: VERAPAMIL 2.5 MG/ML 2 ML AMP ONE (12:24)
[2016-06-03] MEDS ORDERED: LIDOCAINE 2% INJ 20 MG/ML (20 ML MDV) ONE (12:24)
[2016-06-03] MEDS ORDERED: MIDAZOLAM 2 MG/2 ML VIAL ONE (12:40)
--- NOTE | 2016-06-03 12:54 | ECHOF ---
Referral Reason:EKG changes MEASUREMENTS -------- HEIGHT: 152.4 cm WEIGHT: 63.5 kg BP: RVIDd: 2.7 cm (< 3.3) IVSd: 1.3 cm (0.6 - 1.1) LVIDd: 3.7 cm (3.9 - 5.3) LVPWd: 1.3 cm (0.6 - 1.1) IVSs: 1.6 cm LVIDs: 3.8 cm LVPWs: 1.1 cm Ao Diam: 2.6 cm (2.0 - 3.7) AV Cusp: 1.8 cm (1.5 - 2.6) LA Diam: 4.2 cm (2.7 - 3.8) MV EXCURSION: 13.189 mm (> 18.000) MV EF SLOPE: 45 mm/s (70 - 150) EPSS: 0.6 cm MV E Abram: 0.44 m/s MV DecT: 298 ms MV A Abram: 0.83 m/s MV E/A Ratio: 0.53 RAP: 5.00 mmHg RVSP: 15.10 mmHg FINDINGS -------- Sinus rhythm. This was a technically adequate study. There is mild concentric left ventricular hypertrophy. Overall left ventricular systolic function is low-normal with, an EF between 50 - 55 %. The right ventricle is normal in size. The left atrial size is normal. The right atrial size is normal. There is mild aortic valve sclerosis. There is no evidence of aortic regurgitation. Mild mitral annular calcification present. Mild mitral regurgitation is present. Mild tricuspid regurgitation present. There is no evidence of pulmonary hypertension. The right ventricular systolic pressure, as measured by Doppler, is 15.10mmHg. There is no pulmonic regurgitation present. The aortic root size is normal. There is no pericardial effusion. CONCLUSIONS -------- 1. There is mild concentric left ventricular hypertrophy. 2. Overall left ventricular systolic function is low-normal with, an EF between 50 - 55 %. 3. There is mild aortic valve sclerosis. 4. Mild mitral annular calcification present. 5. Mild mitral regurgitation is present. 6. Mild tricuspid regurgitation present. 7. There is no evidence of pulmonary hypertension. 8. The right ventricular systolic pressure, as measured by Doppler, is 15.10mmHg. EDGE CUTTER: Kimmy Churchill RDCS
[2016-06-03] MEDS ORDERED: IV FLUID CONTINUATION 1,000 ML IV ONE (13:02)
[2016-06-03] MEDS ORDERED: MIDAZOLAM 2 MG/2 ML VIAL IVP ONE (13:02)
[2016-06-03] MEDS ORDERED: LIDOCAINE 2% INJ 20 MG/ML SQ ONE (13:03)
[2016-06-03] MEDS ORDERED: HEPARIN SODIUM 1,000 UNIT/ML VIAL ONE (13:03)
[2016-06-03] MEDS ORDERED: HYDROmorphone 2 MG/ML 1 ML SYRINGE ONE (13:04)
[2016-06-03] MEDS: VERAPAMIL SYRINGE (5 MG/10 ML) INTRAARTER ONE ×2 (13:04→13:24)
[2016-06-03] MEDS ORDERED: HYDROmorphone 2 MG/ML 1 ML SYRINGE IVP ONE (13:05)
[2016-06-03] MEDS ORDERED: HEPARIN SODIUM 1,000 UNIT/ML VIAL IV ONE (13:05)
[2016-06-03] MEDS ORDERED: NITROGLYCERIN 1000MCG/10ML SYRINGE INTRACORON ONE (13:11)
[2016-06-03] MEDS ORDERED: IODIXANOL 320 MG/ML 100 ML INTRAARTER ONE (13:24)
[2016-06-03] MEDS ORDERED: RX INFO: IV CONTRAST WAS GIVEN 1 EACH MISC MISCELLANE PRN (13:35)
[2016-06-03] MEDS ORDERED: SODIUM CHLORIDE 0.9% 1,000 ML IV SCH (13:45)
[2016-06-03] MEDS: TOBRAMYCIN SULFATE IV SCH ×2 (16:53→20:57)
[2016-06-03] MEDS: SODIUM CHLORIDE 0.9% IV SCH ×2 (16:53→20:57)
[2016-06-03] MEDS: NICOTINE 21MG/24HR PATCH TRANSDERM SCH (16:54)
[2016-06-03] MEDS: SODIUM CHLORIDE 0.9% 1,000 ML IV SCH (16:56)
[2016-06-03 17:04] LABS: Glucose,Whole Blood 320 mg/dL (75-99)
[2016-06-03] MEDS: INSULIN NPH/REG INSULIN 70/30 300 UNIT/3 ML VIAL SQ SCH (17:12)
--- NOTE | 2016-06-03 20:39 | CC ---
DATE OF SERVICE: June 03, 2016 PERFORMING PHYSICIAN: Jagdeep Urbano staffing consultant. PROCEDURE PERFORMED: Selective right and left coronary angiogram. INDICATION: This is a pleasant 70-year-old female patient with a past medical history significant for hypertension and dyslipidemia, who was admitted to the hospital with chest discomfort. The EKG showed ST and T wave abnormalities consistent with ischemia. Approach: Right radial artery. COMPLICATIONS: None. Level of sedation: Moderate. PROCEDURE DESCRIPTION: After obtaining informed consent, the patient was brought to the cardiac clam bed laborer. Right radial artery was cannulated using micropuncture technique. Micropuncture wire passed easily. Then I placed 6 [place] sheath in the right radial artery. Subsequently, I did selective right and left coronary angiogram using JR4 and JL 3.5 catheters. The procedure was completed without any complication. SELECTIVE CORONARY ANGIOGRAM: 1. The right coronary artery is a medium caliber vessel and it is a dominant vessel. The proximal RCA appeared to be tortuous with mild disease only. Mid RCA has a long tubular lesion appeared to be in the range of 50%. The RCA distally has a lesion that seems to be in the range of 70% to 80% and again the lesion seems to be long and tubular. 2. The left main is calcified. Beside that seems to be angiographically normal. It bifurcates into the left circumflex and left anterior descending artery. 3. The left circumflex: The proximal left circumflex appeared to have mild disease only. It gives rises into the first OM branch, which appeared to have intermediate disease in the midportion. The left circumflex after that appeared to have mild diffuse disease only. 4. Left anterior descending artery: The ostial left anterior descending artery appeared to have a lesion in the range of 50%. The proximal LAD appeared to have another focal lesion seems to be in the range of 50%. The mid LAD appeared to be tortuous with mild disease only and the LAD distally appeared to have mild disease only. CONCLUSION: 1. Severe disease involving the distal right coronary artery with a long tubular lesion. 2. Intermediate disease involving the proximal left anterior descending artery. 3. Intermediate disease involving the first OM branch of the left circumflex coronary artery as well. POSTPROCEDURE MANAGEMENT: 1. I would maximize medical treatment at this point. 2. I will obtain a stress test to assess for ischemia in the LAD and the left circumflex distribution. 3. Follow up with the patient.
[2016-06-03] MEDS: HEPARIN SODIUM,PORCINE 5,000 UNIT/ML 1 ML VIAL SQ SCH (20:57)
[2016-06-03 21:57] LABS: Glucose,Whole Blood 352 mg/dL (75-99)
[2016-06-04] MEDS: HYDROmorphone 1 MG/ML 1 ML SYRINGE IVP PRN ×6 (01:19→21:11)
[2016-06-04 06:31] LABS: Glucose,Whole Blood 194 mg/dL (75-99)
[2016-06-04] MEDS: INSULIN LISPRO (humaLOG) 300 UNIT/3 ML VIAL SQ SCH ×4 (07:52→21:10)
[2016-06-04] MEDS: CILOSTAZOL 100 MG TAB PO SCH ×2 (07:54→21:23)
[2016-06-04] MEDS: GABAPENTIN 400 MG CAP PO SCH ×3 (07:55→21:11)
[2016-06-04] MEDS: FAMOTIDINE 20 MG TAB PO SCH (07:55)
[2016-06-04] MEDS: CLOPIDOGREL 75 MG TAB PO SCH (07:55)
[2016-06-04] MEDS: EZETIMIBE 10 MG TAB PO SCH (07:55)
[2016-06-04] MEDS: LISINOPRIL 10 MG TAB PO SCH ×2 (07:56→21:10)
[2016-06-04] MEDS: HEPARIN SODIUM,PORCINE 5,000 UNIT/ML 1 ML VIAL SQ SCH ×2 (07:56→21:10)
[2016-06-04] MEDS: NICOTINE 21MG/24HR PATCH TRANSDERM SCH ×2 (07:57→08:04)
[2016-06-04] MEDS: SERTRALINE 100 MG TAB PO SCH (07:57)
[2016-06-04] MEDS: HYDROcodone/APAP 10-325MG 1 EACH TAB PO SCH ×3 (08:02→23:23)
[2016-06-04] MEDS: TOBRAMYCIN SULFATE IV SCH ×2 (08:02→21:11)
[2016-06-04] MEDS: SODIUM CHLORIDE 0.9% IV SCH ×2 (08:02→21:11)
[2016-06-04] MEDS: INSULIN NPH/REG INSULIN 70/30 300 UNIT/3 ML VIAL SQ SCH ×2 (08:31→17:06)
[2016-06-04] MEDS: SODIUM CHLORIDE 0.9% 1,000 ML IV SCH ×2 (08:31→13:34)
--- NOTE | 2016-06-04 11:40 | P.PN ---
Subjective Principal diagnosis: Chest discomfort This is a pleasant 70-year-old female patient with a past medical history significant for hypertension, dyslipidemia, and multiple comorbid conditions was admitted to the hospital with chest discomfort. The EKG showed ischemic changes in the anterolateral leads. She underwent a heart catheterization which showed severe disease involving the RCA with a long tubular lesion and also intermediate disease involving the LAD and left circumflex. Maximize medical treatment was recommended this point. On follow-up with the patient today, she continues to have chest discomfort. Unfortunately the blood pressure continues to be out of control. She underwent an echocardiogram which showed preserved left ventricular systolic function. I am going to increase the dose of lisinopril for better blood pressure control. Also I'm going to start the patient on metoprolol and also start the patient on by mouth nitrates. I would recommend keeping the patient for additional 24 hours and follow-up with her. Objective - Vital Signs Vital signs: Vital Signs Temp 97 F L 06/04/16 07:54 Pulse 77 06/04/16 11:22 Resp 18 06/04/16 11:22 BP 185/75 06/04/16 11:22 Pulse Ox 96 06/04/16 11:22 Intake & Output 06/03/16 06/04/16 06/04/16 18:59 06:59 18:59 Intake Total 900 1300 180 Balance 900 1300 180 Weight 66.451 kg 67.3 kg Intake: IV 900 1200 Sodium Chloride 0.9% 1, 800 1200 000 ml @ 100 mls/hr IV . Q10H [facility] Rx#:[id number] Intake, IV Titration 100 Amount Tobramycin Sulfate 60 mg 100 In Sodium Chloride 0.9% 100 ml @ 99.51 mls/hr IV Q12HR [facility]IN[facility] Rx#:[id number] Oral 180 Other: Voiding Method Toilet Toilet # Voids 2 1 # Bowel Movements 2 - Constitutional General appearance: Present: no acute distress - Respiratory Respiratory: bilateral: CTA - Cardiovascular Rhythm: regular Heart sounds: normal: S1, S2 - Labs CBC & Chem 7: 06/03/16 08:09 06/03/16 08:09 Labs: Abnormal Lab Results - Last 24 Hours (Table) 06/03/16 06/03/16 06/03/16 Range/Units 11:41 17:01 21:55 POC Glucose (mg/dL) 213 H 320 H 352 H (75-99) mg/dL 06/04/16 Range/Units 06:29 POC Glucose (mg/dL) 194 H (75-99) mg/dL Assessment and Plan Plan: Assessment #1 chest discomfort #2 severity CAD as described above #3 multiple risk factors for CAD #4 uncontrolled hypertension Plan #1 the echo showed preserved LV function #2 increase the dose of lisinopril #3 start the patient on beta marcy with metoprolol #4 start the patient on oral nitrate #5 follow-up with the patient
[2016-06-04 11:44] LABS: Glucose,Whole Blood 240 mg/dL (75-99)
--- NOTE | 2016-06-04 12:54 | P.PN ---
Subjective Principal diagnosis: Sepsis, urinary tract infection, chest pain. Patient is a 70-year-old female admitted to [facility] with urinary tract infection and evidence of sepsis with elevated lactic acid. She has been maintained on IV antibiotic and has been improving Patient also complains of episodes of chest pain, cardiology consultation has been requested and echocardiogram was ordered. Today she is feeling better she denies any chest pain at this time no shortness of breath, no cough no palpitation no nausea or vomiting no abdominal pain, no diarrhea No urinary symptoms at this time Objective - Vital Signs Vital signs: Vital Signs Temp 97 F L 06/04/16 07:54 Pulse 77 06/04/16 11:22 Resp 18 06/04/16 11:22 BP 185/75 06/04/16 11:22 Pulse Ox 96 06/04/16 11:22 Intake & Output 06/03/16 06/04/16 06/04/16 18:59 06:59 18:59 Intake Total 900 1300 180 Balance 900 1300 180 Weight 66.451 kg 67.3 kg Intake: IV 900 1200 Sodium Chloride 0.9% 1, 800 1200 000 ml @ 100 mls/hr IV . Q10H [facility] Rx#:[id number] Intake, IV Titration 100 Amount Tobramycin Sulfate 60 mg 100 In Sodium Chloride 0.9% 100 ml @ 99.51 mls/hr IV Q12HR [facility] Rx#:[id number] Oral 180 Other: Voiding Method Toilet Toilet # Voids 2 1 # Bowel Movements 2 - Exam HEENT head normocephalic and atraumatic Neck is supple no JVD no goiter no lymphadenopathy Chest exam reveals a few scattered crackles no wheezing Cardiac exam reveals regular heart sounds no murmurs Abdomen is soft nontender no organomegaly Extremity exam reveals no edema no cyanosis or clubbing she has 3 toe amputations on the left which is remote. - Labs CBC & Chem 7: 06/03/16 08:09 06/03/16 08:09 Labs: Abnormal Lab Results - Last 24 Hours (Table) 06/03/16 06/03/16 06/04/16 Range/Units 17:01 21:55 06:29 POC Glucose (mg/dL) 320 H 352 H 194 H (75-99) mg/dL 06/04/16 Range/Units 11:41 POC Glucose (mg/dL) 240 H (75-99) mg/dL Assessment and Plan Plan: 1. UTI with sepsis with elevated lactic acid and leukocytosis unable to tolerate outpatient antibiotic with Macrodantin. Urinalysis is positive. Awaiting urine culture results, Continue with the tobramycin. 2. Episode of chest pain with EKG showing T-wave inversion. Patient transferred to telemetry floor. Cardiology consulted. First 2 troponins are negative. Patient reports last heart catheterization was about 5 years ago with no stents placed 3. Nausea and vomiting secondary to oral antibiotic. Now resolved. 4. Leukocytosis present on admission secondary to UTI. Now resolved. 5. Elevated lactic acid level of 2.1 patient was given IV fluids and now it is down to 1.7. This is secondary to the UTI. 6. Acute on Chronic kidney disease stage IIIB. Acute kidney injury secondary to dehydration. Creatinine close to baseline now at 1.12. Fluids are currently KVO 7. Hyperkalemia: Potassium 5.2. We'll give 1 dose of Kayexalate. If potassium remains elevated may need to discontinue or decrease lisinopril 8. Insulin-dependent diabetes mellitus type 2: Resume her NovoLog 70/30 and glipizide. Also add sliding scale coverage hemoglobin A1c 9.3 9. Nicotine dependence: Patient was counseled on smoking cessation for approximately 5 minutes. Add nicotine patch 10. Patient has history of peripheral vascular disease with previous amputations of the toes 11. Previous history of myocardial infarction and coronary artery disease 12. GI prophylaxis. Patient is on Pepcid, DVT prophylaxis she is on subcu heparin
[2016-06-04 16:25] LABS: Glucose,Whole Blood 156 mg/dL (75-99)
[2016-06-04 20:07] LABS: Glucose,Whole Blood 206 mg/dL (75-99)
[2016-06-04] MEDS ORDERED: METOPROLOL TARTRATE 25 MG TAB PO SCH (21:00)
[2016-06-04 21:18] LABS: Glucose,Whole Blood 204 mg/dL (75-99)
[2016-06-05] MEDS: HYDROmorphone 1 MG/ML 1 ML SYRINGE IVP PRN ×4 (05:00→23:45)
[2016-06-05] MEDS ORDERED: METOPROLOL TARTRATE 25 MG TAB PO STA (05:07)
[2016-06-05] MEDS: ISOSORBIDE MONONITRATE ER 60 MG TAB.ER.24H PO SCH (05:20)
[2016-06-05 06:05] LABS: Glucose,Whole Blood 68 mg/dL (75-99)
[2016-06-05 06:28] LABS: Basophils # (A) 0.1 k/uL (0-0.2); Basophils % (A) 1 %; CH 30.7; CHCM 33.2; Eosinophils # (A) 0.2 k/uL (0-0.7); Eosinophils % (A) 2 %; HDW 2.72; HGB 10.5 gm/dL (11.4-16.0); Luc # (Auto) 0.13; Luc % (Auto) 1; Lymphocytes # (A) 3.2 k/uL (1.0-4.8); Lymphocytes % (A) 28 %; MCH 30.3 pg (25.0-35.0); MCHC 32.7 g/dL (31.0-37.0); MCV 92.8 fL (80.0-100.0); Mean Platelet Volume 7.6; Monocytes # (A) 0.6 k/uL (0-1.0); Monocytes % (A) 5 %; Neutrophils # (A) 7.4 k/uL (1.3-7.7); Neutrophils % (A) 64 %; RBC 3.45 m/uL (3.80-5.40); RDW 13.4 % (11.5-15.5); WBC 11.5 k/uL (3.8-10.6); WBC (Perox) 12.09
[2016-06-05] MEDS: INSULIN LISPRO (humaLOG) 300 UNIT/3 ML VIAL SQ SCH ×4 (06:36→21:53)
[2016-06-05 06:42] LABS: Calcium 8.9 mg/dL (8.4-10.2); Potassium 4.4 mmol/L (3.5-5.1); Total Bilirubin 0.2 mg/dL (0.2-1.3); Total Protein 5.8 g/dL (6.3-8.2)
[2016-06-05 06:59] LABS: Glucose,Whole Blood 123 mg/dL (75-99)
[2016-06-05] MEDS: SODIUM CHLORIDE 0.9% 1,000 ML IV SCH (07:33)
[2016-06-05] MEDS: CILOSTAZOL 100 MG TAB PO SCH (07:33)
[2016-06-05] MEDS: INSULIN NPH/REG INSULIN 70/30 300 UNIT/3 ML VIAL SQ SCH ×3 (07:37→16:56)
[2016-06-05] MEDS: METOPROLOL TARTRATE 25 MG TAB PO SCH ×2 (07:39→21:49)
[2016-06-05] MEDS: GABAPENTIN 400 MG CAP PO SCH ×3 (07:40→21:51)
[2016-06-05] MEDS: HEPARIN SODIUM,PORCINE 5,000 UNIT/ML 1 ML VIAL SQ SCH ×2 (07:40→21:50)
[2016-06-05] MEDS: FAMOTIDINE 20 MG TAB PO SCH (07:40)
[2016-06-05] MEDS: EZETIMIBE 10 MG TAB PO SCH (07:40)
[2016-06-05] MEDS: NICOTINE 21MG/24HR PATCH TRANSDERM SCH (07:41)
[2016-06-05] MEDS: LISINOPRIL 10 MG TAB PO SCH ×2 (07:41→21:50)
[2016-06-05] MEDS: CLOPIDOGREL 75 MG TAB PO SCH (07:41)
[2016-06-05] MEDS: SERTRALINE 100 MG TAB PO SCH (07:41)
[2016-06-05] MEDS: HYDROcodone/APAP 10-325MG 1 EACH TAB PO SCH ×3 (07:48→21:51)
[2016-06-05] MEDS ORDERED: TOBRAMYCIN TROUGH DUE 1 EACH MISC MISCELLANE ONE (08:00)
[2016-06-05] MEDS ORDERED: TOBRAMYCIN PEAK DUE 1 EACH MISC MISCELLANE ONE (10:30)
--- NOTE | 2016-06-05 11:36 | P.PN ---
Subjective Principal diagnosis: Sepsis, urinary tract infection, chest pain. Patient is a 70-year-old female admitted to [facility] with urinary tract infection and evidence of sepsis with elevated lactic acid. She has been maintained on IV antibiotic and has been improving Patient also complains of episodes of chest pain, cardiology consultation has been requested and echocardiogram was ordered. Today she is feeling better she denies any chest pain at this time no shortness of breath, no cough no palpitation no nausea or vomiting no abdominal pain, no diarrhea No urinary symptoms at this time Objective - Vital Signs Vital signs: Vital Signs Temp 97.4 F L 06/05/16 07:38 Pulse 77 06/05/16 11:07 Resp 17 06/05/16 11:07 BP 166/70 06/05/16 11:07 Pulse Ox 99 06/05/16 11:07 Intake & Output 06/04/16 06/05/16 06/05/16 18:59 06:59 18:59 Intake Total 380 1000 100 Balance 380 1000 100 Weight 68.9 kg Intake: IV 900 Sodium Chloride 0.9% 1, 900 000 ml @ 75 mls/hr IV . [id number] [facility] Rx#:[id number] Intake, IV Titration 100 Amount Tobramycin Sulfate 60 mg 100 In Sodium Chloride 0.9% 100 ml @ 99.51 mls/hr IV Q12HR [facility] Rx#:[id number] Oral 380 100 Other: Voiding Method Toilet Toilet Toilet # Voids 1 1 - Exam HEENT head normocephalic and atraumatic Neck is supple no JVD no goiter no lymphadenopathy Chest exam reveals a few scattered crackles no wheezing Cardiac exam reveals regular heart sounds no murmurs Abdomen is soft nontender no organomegaly Extremity exam reveals no edema no cyanosis or clubbing she has 3 toe amputations on the left which is remote. - Labs CBC & Chem 7: 06/05/16 06:07 06/05/16 06:07 Labs: Abnormal Lab Results - Last 24 Hours (Table) 06/04/16 06/04/16 06/04/16 Range/Units 11:41 16:23 20:05 WBC (3.8-10.6) k/uL RBC (3.80-5.40) m/uL Hgb (11.4-16.0) gm/dL Hct (34.0-46.0) % Chloride (98-107) mmol/L BUN (7-17) mg/dL Creatinine (0.52-1.04) mg/dL Glucose (74-99) mg/dL POC Glucose (mg/dL) 240 H 156 H 206 H (75-99) mg/dL AST (14-36) U/L Total Protein (6.3-8.2) g/dL Albumin (3.5-5.0) g/dL Tobramycin Trough ug/mL 06/04/16 06/05/16 06/05/16 Range/Units 21:17 06:04 06:07 WBC (3.8-10.6) k/uL RBC (3.80-5.40) m/uL Hgb (11.4-16.0) gm/dL Hct (34.0-46.0) % Chloride (98-107) mmol/L BUN (7-17) mg/dL Creatinine (0.52-1.04) mg/dL Glucose (74-99) mg/dL POC Glucose (mg/dL) 204 H 68 L (75-99) mg/dL AST (14-36) U/L Total Protein (6.3-8.2) g/dL Albumin (3.5-5.0) g/dL Tobramycin Trough 2.7 H* ug/mL 06/05/16 06/05/16 06/05/16 Range/Units 06:07 06:07 06:51 WBC 11.5 H (3.8-10.6) k/uL RBC 3.45 L (3.80-5.40) m/uL Hgb 10.5 L (11.4-16.0) gm/dL Hct 32.0 L (34.0-46.0) % Chloride 111 H (98-107) mmol/L BUN 30 H (7-17) mg/dL Creatinine 1.21 H (0.52-1.04) mg/dL Glucose 62 L (74-99) mg/dL POC Glucose (mg/dL) 123 H (75-99) mg/dL AST 11 L (14-36) U/L Total Protein 5.8 L (6.3-8.2) g/dL Albumin 3.1 L (3.5-5.0) g/dL Tobramycin Trough ug/mL Assessment and Plan Plan: 1. UTI with sepsis with elevated lactic acid and leukocytosis unable to tolerate outpatient antibiotic with Macrodantin. Urinalysis is positive. Awaiting urine culture results, Continue with the tobramycin. Tobra level abnormal pharmacy dosing 2. Episode of chest pain with EKG showing T-wave inversion. Patient transferred to telemetry floor. Cardiology consulted. First 2 troponins are negative. Patient reports last heart catheterization was about 5 years ago with no stents placed. Case discussed with cardiology Dr Macias today, plan to maximize medical therapy , proceed with stress testing as outpatient. 3. Nausea and vomiting secondary to oral antibiotic. Now resolved. 4. Leukocytosis present on admission secondary to UTI. Now resolved. 5. Elevated lactic acid level of 2.1 patient was given IV fluids and now it is down to 1.7. This is secondary to the UTI. 6. Acute on Chronic kidney disease stage IIIB. Acute kidney injury secondary to dehydration. Creatinine close to baseline now at 1.12. Fluids are currently KVO 7. Hyperkalemia: Potassium 5.2. We'll give 1 dose of Kayexalate. If potassium remains elevated may need to discontinue or decrease lisinopril 8. Insulin-dependent diabetes mellitus type 2: Resume her NovoLog 70/30 and glipizide. Also add sliding scale coverage hemoglobin A1c 9.3 9. Nicotine dependence: Patient was counseled on smoking cessation for approximately 5 minutes. Add nicotine patch 10. Patient has history of peripheral vascular disease with previous amputations of the toes 11. Previous history of myocardial infarction and coronary artery disease 12. GI prophylaxis. Patient is on Pepcid, DVT prophylaxis she is on subcu heparin
[2016-06-05 11:51] LABS: Glucose,Whole Blood 110 mg/dL (75-99)
--- NOTE | 2016-06-05 13:36 | P.PN ---
Subjective Principal diagnosis: Chest discomfort This is a pleasant 70-year-old female patient with a past medical history significant for hypertension, dyslipidemia, and multiple comorbid conditions was admitted to the hospital with chest discomfort. The EKG showed ischemic changes in the anterolateral leads. She underwent a heart catheterization which showed severe disease involving the RCA with a long tubular lesion and also intermediate disease involving the LAD and left circumflex. Maximize medical treatment was recommended this point. On follow-up with the patient today, she continues to have chest discomfort. Unfortunately the blood pressure continues to be out of control. She underwent an echocardiogram which showed preserved left ventricular systolic function. currently the patient is on dual antiplatelet therapy, beta marcy, KRISTA inhibitor, and oral nitrates. She continues to have chest and abdominal discomfort but I feel that her chest discomfort is quite atypical. she is not on a statin which I am going to add.We will continue following up with her. Objective - Vital Signs Vital signs: Vital Signs Temp 97.4 F L 06/05/16 07:38 Pulse 77 06/05/16 11:07 Resp 17 06/05/16 11:07 BP 166/70 06/05/16 11:07 Pulse Ox 99 06/05/16 11:07 Intake & Output 06/04/16 06/05/16 06/05/16 18:59 06:59 18:59 Intake Total 380 1000 280 Balance 380 1000 280 Weight 68.9 kg Intake: IV 900 Sodium Chloride 0.9% 1, 900 000 ml @ 75 mls/hr IV . [id number] [facility] Rx#:[id number] Intake, IV Titration 100 Amount Tobramycin Sulfate 60 mg 100 In Sodium Chloride 0.9% 100 ml @ 99.51 mls/hr IV Q12HR [facility] Rx#:[id number] Oral 380 280 Other: Voiding Method Toilet Toilet Toilet # Voids 1 1 - Constitutional General appearance: Present: no acute distress - Respiratory Respiratory: bilateral: CTA - Cardiovascular Rhythm: regular Heart sounds: normal: S1, S2 - Labs CBC & Chem 7: 06/05/16 06:07 06/05/16 06:07 Labs: Abnormal Lab Results - Last 24 Hours (Table) 06/04/16 06/04/16 06/04/16 Range/Units 16:23 20:05 21:17 WBC (3.8-10.6) k/uL RBC (3.80-5.40) m/uL Hgb (11.4-16.0) gm/dL Hct (34.0-46.0) % Chloride (98-107) mmol/L BUN (7-17) mg/dL Creatinine (0.52-1.04) mg/dL Glucose (74-99) mg/dL POC Glucose (mg/dL) 156 H 206 H 204 H (75-99) mg/dL AST (14-36) U/L Total Protein (6.3-8.2) g/dL Albumin (3.5-5.0) g/dL Tobramycin Trough ug/mL 06/05/16 06/05/16 06/05/16 Range/Units 06:04 06:07 06:07 WBC 11.5 H (3.8-10.6) k/uL RBC 3.45 L (3.80-5.40) m/uL Hgb 10.5 L (11.4-16.0) gm/dL Hct 32.0 L (34.0-46.0) % Chloride (98-107) mmol/L BUN (7-17) mg/dL Creatinine (0.52-1.04) mg/dL Glucose (74-99) mg/dL POC Glucose (mg/dL) 68 L (75-99) mg/dL AST (14-36) U/L Total Protein (6.3-8.2) g/dL Albumin (3.5-5.0) g/dL Tobramycin Trough 2.7 H* ug/mL 06/05/16 06/05/16 06/05/16 Range/Units 06:07 06:51 11:49 WBC (3.8-10.6) k/uL RBC (3.80-5.40) m/uL Hgb (11.4-16.0) gm/dL Hct (34.0-46.0) % Chloride 111 H (98-107) mmol/L BUN 30 H (7-17) mg/dL Creatinine 1.21 H (0.52-1.04) mg/dL Glucose 62 L (74-99) mg/dL POC Glucose (mg/dL) 123 H 110 H (75-99) mg/dL AST 11 L (14-36) U/L Total Protein 5.8 L (6.3-8.2) g/dL Albumin 3.1 L (3.5-5.0) g/dL Tobramycin Trough ug/mL Assessment and Plan Plan: Assessment #1 chest discomfort #2 severity CAD as described above #3 multiple risk factors for CAD #4 uncontrolled hypertension Plan #1 the echo showed preserved LV function #2 start the patient on a statin in addition to the current medical treatment #3 follow-up with her
[2016-06-05] MEDS: SODIUM CHLORIDE 0.9% IV SCH (15:26)
[2016-06-05] MEDS: TOBRAMYCIN SULFATE IV SCH (15:26)
[2016-06-05 16:41] LABS: Glucose,Whole Blood 137 mg/dL (75-99)
[2016-06-05 20:30] LABS: Glucose,Whole Blood 172 mg/dL (75-99)
[2016-06-05] MEDS: ATORVASTATIN 80 MG TAB PO SCH (21:49)
[2016-06-06] MEDS: HYDROmorphone 1 MG/ML 1 ML SYRINGE IVP PRN ×4 (04:01→23:42)
[2016-06-06] MEDS: CILOSTAZOL 100 MG TAB PO SCH ×3 (04:03→21:40)
[2016-06-06 06:04] LABS: Glucose,Whole Blood 75 mg/dL (75-99)
[2016-06-06 06:36] LABS: Basophils # (A) 0.1 k/uL (0-0.2); Basophils % (A) 1 %; CH 30.7; CHCM 32.9; Eosinophils # (A) 0.3 k/uL (0-0.7); Eosinophils % (A) 3 %; HCT 32.9 % (34.0-46.0); HDW 2.67; HGB 10.7 gm/dL (11.4-16.0); Luc # (Auto) 0.16; Luc % (Auto) 2; Lymphocytes # (A) 3.5 k/uL (1.0-4.8); Lymphocytes % (A) 34 %; MCH 30.3 pg (25.0-35.0); MCHC 32.4 g/dL (31.0-37.0); MCV 93.6 fL (80.0-100.0); Mean Platelet Volume 7.5; Monocytes # (A) 0.6 k/uL (0-1.0); Monocytes % (A) 6 %; Neutrophils # (A) 5.6 k/uL (1.3-7.7); Neutrophils % (A) 55 %; RBC 3.52 m/uL (3.80-5.40); RDW 13.5 % (11.5-15.5); WBC 10.2 k/uL (3.8-10.6); WBC (Perox) 10.75
[2016-06-06 06:44] LABS: ALT 31 U/L (9-52); AST 15 U/L (14-36); Alkaline Phosphatase 76 U/L (38-126); Anion Gap 9 mmol/L; Blood Urea Nitrogen 28 mg/dL (7-17); Calcium 8.8 mg/dL (8.4-10.2); Carbon Dioxide 23 mmol/L (22-30); Chloride 111 mmol/L (98-107); Glucose 70 mg/dL (74-99); Non-African American GFR(MDRD) 55 (>60 ml/min/1.73 sqM); Potassium 5.5 mmol/L (3.5-5.1); Sodium 143 mmol/L (137-145); Total Bilirubin 0.2 mg/dL (0.2-1.3); Total Protein 5.6 g/dL (6.3-8.2)
[2016-06-06] MEDS ORDERED: TOBRAMYCIN TROUGH DUE 1 EACH MISC MISCELLANE ONE (07:00)
[2016-06-06] MEDS ORDERED: TOBRAMYCIN PEAK DUE 1 EACH MISC MISCELLANE ONE (08:30)
[2016-06-06] MEDS: SERTRALINE 100 MG TAB PO SCH (09:51)
[2016-06-06] MEDS: HEPARIN SODIUM,PORCINE 5,000 UNIT/ML 1 ML VIAL SQ SCH ×2 (09:51→21:40)
[2016-06-06] MEDS: METOPROLOL TARTRATE 25 MG TAB PO SCH ×2 (09:52→21:40)
[2016-06-06] MEDS: LISINOPRIL 10 MG TAB PO SCH (09:52)
[2016-06-06] MEDS: ISOSORBIDE MONONITRATE ER 60 MG TAB.ER.24H PO SCH (09:52)
[2016-06-06] MEDS: NICOTINE 21MG/24HR PATCH TRANSDERM SCH (09:52)
[2016-06-06] MEDS: CLOPIDOGREL 75 MG TAB PO SCH (09:53)
[2016-06-06] MEDS: EZETIMIBE 10 MG TAB PO SCH (09:53)
[2016-06-06] MEDS: GABAPENTIN 400 MG CAP PO SCH ×3 (09:53→23:41)
[2016-06-06] MEDS: FAMOTIDINE 20 MG TAB PO SCH (09:54)
[2016-06-06] MEDS: SODIUM CHLORIDE 0.9% IV SCH (10:11)
[2016-06-06] MEDS: TOBRAMYCIN SULFATE IV SCH (10:11)
[2016-06-06] MEDS: INSULIN NPH/REG INSULIN 70/30 300 UNIT/3 ML VIAL SQ SCH ×2 (10:24→23:43)
[2016-06-06] MEDS: INSULIN LISPRO (humaLOG) 300 UNIT/3 ML VIAL SQ SCH ×3 (10:33→21:30)
[2016-06-06] MEDS: HYDROcodone/APAP 10-325MG 1 EACH TAB PO SCH (11:35)
[2016-06-06 12:17] LABS: Glucose,Whole Blood 165 mg/dL (75-99)
--- NOTE | 2016-06-06 13:13 | P.PN ---
Subjective Patient is doing well today. No events overnight. Objective - Vital Signs Vital signs: Vital Signs Temp 98.3 F 06/06/16 08:00 Pulse 64 06/06/16 08:00 Resp 16 06/06/16 08:00 BP 180/80 06/06/16 08:00 Pulse Ox 96 06/06/16 08:00 Intake & Output 06/05/16 06/06/16 06/06/16 18:59 06:59 18:59 Intake Total 400 118 240 Balance 400 118 240 Weight 68.2 kg Intake: Intake, IV Titration 100 Amount Tobramycin Sulfate 60 mg 100 In Sodium Chloride 0.9% 100 ml @ 99.51 mls/hr IV Q16H [facility] Rx#:[id number] Oral 300 118 240 Other: Voiding Method Toilet Toilet Toilet # Voids 1 - Exam General: The patient is awake and alert, in no distress Eye: there is normal conjunctiva bilaterally. Neck: The neck is supple, there is no JVD. Cardiovascular: Normal S1-S2, no S3-S4, no murmurs. Respiratory: Lungs clear to auscultation bilaterally Gastrointestinal: Abdomen is soft, nontender Musculoskeletal: There is no pedal edema. Neurological:. Speech is normal. Skin: Skin is warm and dry - Labs CBC & Chem 7: 06/06/16 06:01 06/06/16 06:01 Labs: Abnormal Lab Results - Last 24 Hours (Table) 06/05/16 06/05/16 06/05/16 Range/Units 06:07 16:40 20:29 RBC (3.80-5.40) m/uL Hgb (11.4-16.0) gm/dL Hct (34.0-46.0) % Potassium (3.5-5.1) mmol/L Chloride (98-107) mmol/L BUN (7-17) mg/dL Glucose (74-99) mg/dL POC Glucose (mg/dL) 137 H 172 H (75-99) mg/dL Total Protein (6.3-8.2) g/dL Albumin (3.5-5.0) g/dL Tobramycin Trough 2.7 H* ug/mL 06/06/16 06/06/16 06/06/16 Range/Units 06:01 06:01 12:14 RBC 3.52 L (3.80-5.40) m/uL Hgb 10.7 L (11.4-16.0) gm/dL Hct 32.9 L (34.0-46.0) % Potassium 5.5 H (3.5-5.1) mmol/L Chloride 111 H (98-107) mmol/L BUN 28 H (7-17) mg/dL Glucose 70 L (74-99) mg/dL POC Glucose (mg/dL) 165 H (75-99) mg/dL Total Protein 5.6 L (6.3-8.2) g/dL Albumin 3.1 L (3.5-5.0) g/dL Tobramycin Trough ug/mL Assessment and Plan Plan: 1. UTI with urine culture growing pansensitive susceptible Klebsiella. Patient was started on IV tobramycin?? Which will be discontinued and switched to Levaquin. Patient's report an unsure ALLERGY to Cipro. Would monitor closely. 2. Episode of chest pain with EKG showing T-wave inversion. Patient was seen and evaluated by cardiology and underwent a left heart catheterization showing severe disease involving the RCA with no intervention recommended. Continue optimal medical management. 3. Nausea and vomiting secondary to oral antibiotic. Now resolved. 4. Leukocytosis present on admission secondary to UTI. Now resolved. 5. Elevated lactic acid level of 2.1 patient was given IV fluids and now it is down to 1.7. This is secondary to the UTI. 6. Acute on Chronic kidney disease stage IIIB. Acute kidney injury secondary to dehydration. Creatinine close to baseline now at 1.12. Fluids are currently KVO 7. Hyperkalemia: Potassium 5.2. We'll give 1 dose of Kayexalate. If potassium remains elevated may need to discontinue or decrease lisinopril 8. Insulin-dependent diabetes mellitus type 2: Resume her NovoLog 70/30 and glipizide. Also add sliding scale coverage hemoglobin A1c 9.3 9. Nicotine dependence: Patient was counseled on smoking cessation for approximately 5 minutes. Add nicotine patch 10. Patient has history of peripheral vascular disease with previous amputations of the toes 11. Previous history of myocardial infarction and coronary artery disease 12. GI prophylaxis. Patient is on Pepcid, DVT prophylaxis she is on subcu heparin Plan for today: Switch antibiotic to Levaquin and monitor closely. Discharge planning.
[2016-06-06] MEDS ORDERED: ALPRAZolam 0.25 MG TAB PO PRN (14:23)
[2016-06-06] MEDS ORDERED: SODIUM CHLORIDE 0.9% 1,000 ML in EMPTY BAG 1 BAG IV ONE (14:23)
[2016-06-06] MEDS ORDERED: ATORVASTATIN 80 MG TAB PO STA (14:23)
[2016-06-06] MEDS ORDERED: ASPIRIN 325 MG TAB PO STA (14:23)
--- NOTE | 2016-06-06 14:38 | P.PN ---
Subjective Principal diagnosis: Chest pain This is a pleasant 70-year-old female with past medical history significant for hypertension, hyperlipidemia, hypertension, asthma, COPD, prior CVA, diabetes, hyperlipidemia, renal disease, patient only has one kidney, she presented to the hospital with symptoms of chest discomfort. Her EKG revealed changes consistent with ischemia and for this reason she underwent a cardiac catheterization by Dr. Urbano which revealed severe disease involving the distal right coronary artery with a long tubular lesion, intermediate disease involving the proximal LAD, intermediate disease involving the first OM branch of the left circumflex. Medical therapy was initially advised, patient was seen and examined this morning, had 2 episodes of midsternal chest pressure with radiation to the shoulder blade area. For this reason Dr. Macias's recommendation was to proceed with FFR tomorrow. We will discuss this further with the designated person that has power of claims attorney. Patient herself is in agreement to proceed tomorrow. Objective - Vital Signs Vital signs: Vital Signs Temp 98.3 F 06/06/16 08:00 Pulse 91 06/06/16 12:00 Resp 16 06/06/16 12:00 BP 140/60 06/06/16 12:00 Pulse Ox 96 06/06/16 08:00 Intake & Output 06/05/16 06/06/16 06/06/16 18:59 06:59 18:59 Intake Total 400 118 240 Balance 400 118 240 Weight 68.2 kg Intake: Intake, IV Titration 100 Amount Tobramycin Sulfate 60 mg 100 In Sodium Chloride 0.9% 100 ml @ 99.51 mls/hr IV Q16H [facility] Rx#:[id number] Oral 300 118 240 Other: Voiding Method Toilet Toilet Toilet # Voids 1 - Exam PHYSICAL EXAMINATION: HEENT: Head is atraumatic, normocephalic. Pupils equal, round. Neck is supple. There is no elevated jugular venous pressure. HEART EXAMINATION: Heart S1, S2 normal. No murmur or gallop heard. CHEST EXAMINATION: Lungs are clear to auscultation and precussion. No chest wall tenderness is noted on palpation or with deep breathing. ABDOMEN: Soft, nontender. Bowel sounds are heard. No organomegaly noted. EXTREMITIES: 2+ peripheral pulses with no evidence of peripheral edema and no calf tenderness noted. NEUROLOGIC patient is awake, alert and oriented -3. . - Labs CBC & Chem 7: 06/06/16 06:01 06/06/16 06:01 Labs: Abnormal Lab Results - Last 24 Hours (Table) 06/05/16 06/05/16 06/05/16 Range/Units 06:07 16:40 20:29 RBC (3.80-5.40) m/uL Hgb (11.4-16.0) gm/dL Hct (34.0-46.0) % Potassium (3.5-5.1) mmol/L Chloride (98-107) mmol/L BUN (7-17) mg/dL Glucose (74-99) mg/dL POC Glucose (mg/dL) 137 H 172 H (75-99) mg/dL Total Protein (6.3-8.2) g/dL Albumin (3.5-5.0) g/dL Tobramycin Trough 2.7 H* ug/mL 06/06/16 06/06/16 06/06/16 Range/Units 06:01 06:01 12:14 RBC 3.52 L (3.80-5.40) m/uL Hgb 10.7 L (11.4-16.0) gm/dL Hct 32.9 L (34.0-46.0) % Potassium 5.5 H (3.5-5.1) mmol/L Chloride 111 H (98-107) mmol/L BUN 28 H (7-17) mg/dL Glucose 70 L (74-99) mg/dL POC Glucose (mg/dL) 165 H (75-99) mg/dL Total Protein 5.6 L (6.3-8.2) g/dL Albumin 3.1 L (3.5-5.0) g/dL Tobramycin Trough ug/mL Assessment and Plan (1) Diabetes Status: Acute (2) Hyperlipemia Status: Acute (3) Chest pain Status: Acute (4) Diabetes mellitus Status: Acute (5) Hypertension Status: Acute (6) Peripheral vascular disease Status: Acute Plan: From cardiology's perspective, we'll decrease the lisinopril to 10 mg daily, her potassium today was 5.5. Patient will be scheduled to undergo FFR tomorrow , we will discuss this with the designated individual who has power of claims attorney. Further recommendations to follow. DNP note has been reviewed, I agree with a documented findings and plan of care. Patient was seen and examined.
[2016-06-06 17:06] LABS: Glucose,Whole Blood 57 mg/dL (75-99)
[2016-06-06 17:06] LABS: Glucose,Whole Blood 82 mg/dL (75-99)
[2016-06-06 17:33] LABS: Glucose,Whole Blood 98 mg/dL (75-99)
[2016-06-06] MEDS: LEVOFLOXACIN 500 MG TAB PO SCH (18:14)
[2016-06-06 20:37] LABS: Glucose,Whole Blood 189 mg/dL (75-99)
[2016-06-06] MEDS: ATORVASTATIN 80 MG TAB PO SCH (23:41)
[2016-06-07 05:49] LABS: Glucose,Whole Blood 158 mg/dL (75-99)
[2016-06-07] MEDS: HYDROcodone/APAP 10-325MG 1 EACH TAB PO SCH ×4 (07:32→19:47)
[2016-06-07] MEDS: HYDROmorphone 1 MG/ML 1 ML SYRINGE IVP PRN ×3 (07:34→22:30)
[2016-06-07] MEDS: CILOSTAZOL 100 MG TAB PO SCH ×2 (07:40→22:25)
[2016-06-07] MEDS: CLOPIDOGREL 75 MG TAB PO SCH (07:41)
[2016-06-07] MEDS: EZETIMIBE 10 MG TAB PO SCH (07:41)
[2016-06-07] MEDS: FAMOTIDINE 20 MG TAB PO SCH (07:43)
[2016-06-07] MEDS ORDERED: LISINOPRIL 10 MG TAB PO SCH (09:00)
[2016-06-07] MEDS: INSULIN LISPRO (humaLOG) 300 UNIT/3 ML VIAL SQ SCH ×4 (09:17→22:09)
[2016-06-07] MEDS: METOPROLOL TARTRATE 25 MG TAB PO SCH (09:19)
[2016-06-07] MEDS: ISOSORBIDE MONONITRATE ER 60 MG TAB.ER.24H PO SCH (09:20)
[2016-06-07] MEDS: SERTRALINE 100 MG TAB PO SCH (09:20)
[2016-06-07] MEDS: HEPARIN SODIUM,PORCINE 5,000 UNIT/ML 1 ML VIAL SQ SCH ×2 (09:22→22:31)
[2016-06-07] MEDS: GABAPENTIN 400 MG CAP PO SCH ×4 (09:22→22:31)
[2016-06-07] MEDS: NICOTINE 21MG/24HR PATCH TRANSDERM SCH (09:23)
[2016-06-07 10:59] VITALS: BMI 29.4
[2016-06-07 12:11] LABS: Glucose,Whole Blood 151 mg/dL (75-99)
--- NOTE | 2016-06-07 12:33 | P.PN ---
Subjective Patient was having intermittent last night and was seen by cardiology again this morning and plan is to proceed with left heart catheterization. She is chest pain-free when I saw her today. Objective - Vital Signs Vital signs: Vital Signs Temp 98.5 F 06/07/16 08:33 Pulse 0 L 06/07/16 12:00 Resp 16 06/07/16 12:00 BP 146/65 06/07/16 12:00 Pulse Ox 92 L 06/07/16 12:00 Intake & Output 06/06/16 06/07/16 06/07/16 18:59 06:59 18:59 Intake Total 240 358 Output Total 225 Balance 240 133 Weight 68.3 kg 68.3 kg Intake: Oral 240 358 Output: Urine 225 Other: Voiding Method Toilet Toilet Toilet # Voids 2 # Bowel Movements 0 - Exam General: The patient is awake and alert, in no distress Eye: there is normal conjunctiva bilaterally. Neck: The neck is supple, there is no JVD. Cardiovascular: Normal S1-S2, no S3-S4, no murmurs. Respiratory: Lungs clear to auscultation bilaterally Gastrointestinal: Abdomen is soft, nontender Musculoskeletal: There is no pedal edema. Neurological:. Speech is normal. Skin: Skin is warm and dry - Labs CBC & Chem 7: 06/06/16 06:01 06/06/16 06:01 Labs: Abnormal Lab Results - Last 24 Hours (Table) 06/06/16 06/06/16 06/07/16 Range/Units 17:00 20:35 05:47 POC Glucose (mg/dL) 57 L 189 H 158 H (75-99) mg/dL 06/07/16 Range/Units 12:03 POC Glucose (mg/dL) 151 H (75-99) mg/dL Assessment and Plan Plan: 1. UTI with urine culture growing pansensitive susceptible Klebsiella. Currently on oral Levaquin with good tolerance. 2. Episode of chest pain with EKG showing T-wave inversion. Patient was seen and evaluated by cardiology and underwent a left heart catheterization showing severe disease involving the RCA with no intervention recommended. Continue optimal medical management. Given recurrent chest pain patient was taken to the systems testing laboratory technician again today 3. Nausea and vomiting secondary to oral antibiotic. Now resolved. 4. Leukocytosis present on admission secondary to UTI. Now resolved. 5. Elevated lactic acid level of 2.1 patient was given IV fluids and now it is down to 1.7. This is secondary to the UTI. 6. Acute on Chronic kidney disease stage IIIB. Acute kidney injury secondary to dehydration. Creatinine close to baseline now at 1.12. Fluids are currently KVO 7. Hyperkalemia: Potassium 5.2. We'll give 1 dose of Kayexalate. If potassium remains elevated may need to discontinue or decrease lisinopril 8. Insulin-dependent diabetes mellitus type 2: Resume her NovoLog 70/30 and glipizide. Also add sliding scale coverage hemoglobin A1c 9.3 9. Nicotine dependence: Patient was counseled on smoking cessation for approximately 5 minutes. Add nicotine patch 10. Patient has history of peripheral vascular disease with previous amputations of the toes 11. Previous history of myocardial infarction and coronary artery disease 12. GI prophylaxis. Patient is on Pepcid, DVT prophylaxis she is on subcu heparin Plan for today: Awaiting left heart catheterization. Appreciate cardiology recommendations. Continue current regimen otherwise. Repeat lab work in the morning.
[2016-06-07] MEDS ORDERED: diphenhydrAMINE 50 MG/ML 1 ML VIAL ONE (15:24)
[2016-06-07] MEDS ORDERED: methylPREDNISolone SOD SUCCI 125 MG/2 ML VIAL ONE (15:24)
[2016-06-07] MEDS ORDERED: MIDAZOLAM 2 MG/2 ML VIAL ONE (15:24)
[2016-06-07] MEDS ORDERED: LIDOCAINE 2% INJ 20 MG/ML (20 ML MDV) ONE (15:24)
[2016-06-07] MEDS ORDERED: diphenhydrAMINE 50 MG/ML 1 ML VIAL IVP ONE (15:26)
[2016-06-07] MEDS ORDERED: methylPREDNISolone SOD SUCCI 125 MG/2 ML VIAL IVP ONE (15:26)
[2016-06-07] MEDS ORDERED: ASPIRIN 325 MG TAB PO ONE (15:29)
[2016-06-07] MEDS ORDERED: ASPIRIN 325 MG TAB ONE (15:30)
[2016-06-07] MEDS ORDERED: IV FLUID CONTINUATION 1,000 ML IV ONE (15:30)
[2016-06-07] MEDS ORDERED: MIDAZOLAM 2 MG/2 ML VIAL IVP ONE (15:32)
[2016-06-07] MEDS ORDERED: LIDOCAINE 2% INJ 20 MG/ML SQ ONE (15:34)
[2016-06-07] MEDS ORDERED: ENALAPRILAT 1.25 MG/ML 1 ML VIAL IVP ONE (15:35)
[2016-06-07] MEDS ORDERED: hydrALAZINE HCL 20 MG/ML 1 ML VIAL IVP ONE ×2 (15:35→16:14)
[2016-06-07] MEDS ORDERED: ENALAPRILAT 1.25 MG/ML 1 ML VIAL ONE (15:35)
[2016-06-07] MEDS ORDERED: hydrALAZINE HCL 20 MG/ML 1 ML VIAL ONE ×2 (15:35→16:13)
[2016-06-07] MEDS ORDERED: BIVALIRUDIN BOLUS 250 MG/50 ML IV ONE (15:50)
[2016-06-07] MEDS ORDERED: BIVALIRUDIN 250 MG in SODIUM CHLORIDE 0.9% 50 ML IV ONE (15:52)
[2016-06-07] MEDS ORDERED: IODIXANOL 320 MG/ML 100 ML INTRAARTER ONE (16:07)
[2016-06-07] MEDS ORDERED: RX INFO: IV CONTRAST WAS GIVEN 1 EACH MISC MISCELLANE PRN (16:09)
[2016-06-07] MEDS ORDERED: NITROGLYCERIN SL TABS 0.4 MG TAB SUBLINGUAL PRN (16:09)
[2016-06-07] MEDS ORDERED: ZOLPIDEM 5 MG TAB PO PRN (16:09)
[2016-06-07] MEDS ORDERED: MAG HYDROX/AL HYDROX/SIMETH 30 ML CUP PO PRN (16:09)
[2016-06-07] MEDS ORDERED: SODIUM CHLORIDE 0.9% 1,000 ML IV SCH (16:15)
[2016-06-07 16:51] LABS: Glucose,Whole Blood 190 mg/dL (75-99)
[2016-06-07] MEDS ORDERED: NITROGLYCERIN-D5W PMX 50 MG in DEXTROSE/WATER 1 250ML.BAG IV SCH (18:15)
[2016-06-07] MEDS: INSULIN NPH/REG INSULIN 70/30 300 UNIT/3 ML VIAL SQ SCH ×2 (18:47→20:37)
[2016-06-07] MEDS: ONDANSETRON 4 MG/2 ML VIAL IVP PRN (19:02)
[2016-06-07] MEDS ORDERED: CLEVIDIPINE BUTYRATE 25 MG in EMPTY BAG 1 BAG IV SCH (19:30)
[2016-06-07] MEDS: LEVOFLOXACIN 500 MG TAB PO SCH ×2 (19:47→20:42)
[2016-06-07] MEDS: LISINOPRIL 10 MG TAB PO SCH (20:38)
[2016-06-07 22:11] LABS: Glucose,Whole Blood 323 mg/dL (75-99)
[2016-06-07] MEDS: ATORVASTATIN 80 MG TAB PO SCH (22:31)
[2016-06-07] MEDS: METOPROLOL TARTRATE 50 MG TAB PO SCH (22:31)
[2016-06-08] MEDS: HYDROcodone/APAP 10-325MG 1 EACH TAB PO SCH ×4 (00:58→22:13)
[2016-06-08] MEDS ORDERED: ATROPINE SULFATE 0.1 MG/ML 10ML SYRINGE ONE (01:59)
[2016-06-08 02:24] LABS: Glucose,Whole Blood 213 mg/dL (75-99)
[2016-06-08] MEDS: HYDROmorphone 1 MG/ML 1 ML SYRINGE IVP PRN ×4 (04:14→22:17)
[2016-06-08 04:54] LABS: Basophils % (A) 0 %; CH 31.1; CHCM 32.8; Eosinophils % (A) 0 %; HCT 33.4 % (34.0-46.0); HDW 2.51; HGB 10.4 gm/dL (11.4-16.0); Luc # (Auto) 0.04; Luc % (Auto) 0; Lymphocytes # (A) 1.6 k/uL (1.0-4.8); Lymphocytes % (A) 11 %; MCH 29.5 pg (25.0-35.0); MCV 95.3 fL (80.0-100.0); Mean Platelet Volume 7.5; Monocytes # (A) 0.3 k/uL (0-1.0); Monocytes % (A) 2 %; Neutrophils # (A) 13.4 k/uL (1.3-7.7); Neutrophils % (A) 87 %; RBC 3.51 m/uL (3.80-5.40); RDW 13.4 % (11.5-15.5); WBC 15.4 k/uL (3.8-10.6); WBC (Perox) 16.27
[2016-06-08 06:08] LABS: Calcium 8.7 mg/dL (8.4-10.2)
[2016-06-08 06:16] LABS: Potassium 6.7 mmol/L (3.5-5.1)
[2016-06-08] MEDS ORDERED: INSULIN REGULAR 100 UNIT/ML VIAL IV STA (06:29)
[2016-06-08] MEDS ORDERED: DEXTROSE 50%-WATER 50 ML SYRINGE IVP STA (06:29)
[2016-06-08] MEDS ORDERED: SODIUM POLYSTYRENE SULFONATE 15 GM/60 ML BOTTLE PO STA (06:29)
[2016-06-08] MEDS: ONDANSETRON 4 MG/2 ML VIAL IVP PRN (06:48)
[2016-06-08 07:53] LABS: Glucose,Whole Blood 261 mg/dL (75-99)
[2016-06-08] MEDS: GABAPENTIN 400 MG CAP PO SCH ×3 (08:18→22:13)
[2016-06-08] MEDS: CILOSTAZOL 100 MG TAB PO SCH ×2 (08:18→22:16)
[2016-06-08] MEDS: CLOPIDOGREL 75 MG TAB PO SCH (08:19)
[2016-06-08] MEDS: EZETIMIBE 10 MG TAB PO SCH (08:19)
[2016-06-08] MEDS: METOPROLOL TARTRATE 50 MG TAB PO SCH ×3 (08:19→22:15)
[2016-06-08] MEDS: INSULIN LISPRO (humaLOG) 300 UNIT/3 ML VIAL SQ SCH ×4 (08:20→22:16)
[2016-06-08] MEDS: FAMOTIDINE 20 MG TAB PO SCH (08:20)
[2016-06-08] MEDS: INSULIN NPH/REG INSULIN 70/30 300 UNIT/3 ML VIAL SQ SCH ×2 (08:20→17:01)
[2016-06-08] MEDS: SERTRALINE 100 MG TAB PO SCH (08:20)
[2016-06-08] MEDS: HEPARIN SODIUM,PORCINE 5,000 UNIT/ML 1 ML VIAL SQ SCH ×2 (08:21→22:12)
[2016-06-08] MEDS ORDERED: LISINOPRIL 20 MG TAB PO SCH (09:00)
--- NOTE | 2016-06-08 09:22 | P.PN ---
Subjective Principal diagnosis: Chest discomfort This is a pleasant 70-year-old female patient with a past medical history significant for hypertension, dyslipidemia, and multiple comorbid conditions was admitted to the hospital with chest discomfort. The EKG showed ischemic changes in the anterolateral leads. She underwent a heart catheterization which showed severe disease involving the RCA with a long tubular lesion and also intermediate disease involving the LAD and left circumflex. Maximize medical treatment was recommended this point. Unfortunately, the patient continues to have chest discomfort in spite of maximize medical treatment. I took her back to the cardiac lab instructor yesterday to do one FFR of the LAD but unfortunately the FFR machine was not working and the procedure was aborted. After the procedure her pressure was elevated and the systolic pressure was more than 200 mmHg. I decided to send the patient back to the intensive care unit where I'm starting the patient on nitro drip. her blood pressure has been better and she is off the nitro drip at this point. The potassium this morning came in to be 6.5. I stopped the lisinopril, and I am starting the patient on Norvasc at 5 mg by mouth twice a day. We'll repeat the potassium level later on today. Objective - Vital Signs Vital signs: Vital Signs Temp 98.6 F 06/08/16 04:00 Pulse 72 06/08/16 07:00 Resp 13 06/08/16 07:00 BP 178/81 06/08/16 07:00 Pulse Ox 93 L 06/08/16 07:00 Intake & Output 06/07/16 06/08/16 06/08/16 18:59 06:59 18:59 Intake Total 90.3 975 75 Output Total 675 0 Balance 90.3 300 75 Weight 68.3 kg 72.7 kg Intake: IV 90.3 975 75 Sodium Chloride 0.9% 1, 75 975 75 000 ml @ 75 mls/hr IV . [id number] [facility] Rx#:[id number] Output: Urine 675 0 Other: Voiding Method Bedpan Bedpan Incontinent Incontinent # Voids 1 0 0 ABP, PAP, CO, CI - Last Documented Arterial Blood Pressure 138/55 - Constitutional General appearance: Present: no acute distress - Respiratory Respiratory: bilateral: CTA - Cardiovascular Rhythm: regular Heart sounds: normal: S1, S2 - Labs CBC & Chem 7: 06/08/16 04:28 06/08/16 05:24 Labs: Abnormal Lab Results - Last 24 Hours (Table) 06/07/16 06/07/16 06/07/16 Range/Units 12:03 16:46 22:08 WBC (3.8-10.6) k/uL RBC (3.80-5.40) m/uL Hgb (11.4-16.0) gm/dL Hct (34.0-46.0) % Neutrophils # (1.3-7.7) k/uL Sodium (137-145) mmol/L Potassium (3.5-5.1) mmol/L Carbon Dioxide (22-30) mmol/L BUN (7-17) mg/dL Creatinine (0.52-1.04) mg/dL Glucose (74-99) mg/dL POC Glucose (mg/dL) 151 H 190 H 323 H (75-99) mg/dL 06/08/16 06/08/16 06/08/16 Range/Units 02:22 04:28 05:24 WBC 15.4 H (3.8-10.6) k/uL RBC 3.51 L (3.80-5.40) m/uL Hgb 10.4 L (11.4-16.0) gm/dL Hct 33.4 L (34.0-46.0) % Neutrophils # 13.4 H (1.3-7.7) k/uL Sodium 136 L (137-145) mmol/L Potassium 6.7 H* (3.5-5.1) mmol/L Carbon Dioxide 18 L (22-30) mmol/L BUN 36 H (7-17) mg/dL Creatinine 1.50 H (0.52-1.04) mg/dL Glucose 259 H (74-99) mg/dL POC Glucose (mg/dL) 213 H (75-99) mg/dL 06/08/16 Range/Units 07:51 WBC (3.8-10.6) k/uL RBC (3.80-5.40) m/uL Hgb (11.4-16.0) gm/dL Hct (34.0-46.0) % Neutrophils # (1.3-7.7) k/uL Sodium (137-145) mmol/L Potassium (3.5-5.1) mmol/L Carbon Dioxide (22-30) mmol/L BUN (7-17) mg/dL Creatinine (0.52-1.04) mg/dL Glucose (74-99) mg/dL POC Glucose (mg/dL) 261 H (75-99) mg/dL Assessment and Plan Plan: Assessment #1 chest discomfort #2 severity CAD as described above #3 multiple risk factors for CAD #4 uncontrolled hypertension Plan #1 continue the current medical treatment #2 DC the lisinopril #3 start the patient on Norvasc #4 repeat the potassium level later on today
[2016-06-08] MEDS: NICOTINE 21MG/24HR PATCH TRANSDERM SCH (09:29)
[2016-06-08] MEDS: LISINOPRIL 10 MG TAB PO SCH (09:29)
[2016-06-08] MEDS: amLODIPine 5 MG TAB PO SCH ×2 (09:35→23:06)
[2016-06-08 12:13] LABS: Glucose,Whole Blood 211 mg/dL (75-99)
--- NOTE | 2016-06-08 12:43 | P.PN ---
Subjective Patient was transferred to the intensive care unit. Yesterday planned FFR procedure was aborted as the machine was not functioning. Patient had an episode of elevated blood pressure with a systolic blood pressure up to 200 requiring admission to the intensive care unit and was started on the nitro drip. Her blood pressure is significantly better today. She is feeling comfortable and denies any significant chest pain. She is complaining of chronic neck and low back pain. Her potassium was also elevated this morning and she was given IV insulin and oral Kayexalate awaiting repeat potassium levels. Objective - Vital Signs Vital signs: Vital Signs Temp 98.6 F 06/08/16 04:00 Pulse 68 06/08/16 10:00 Resp 12 06/08/16 10:00 BP 143/67 06/08/16 10:00 Pulse Ox 93 L 06/08/16 10:00 Intake & Output 06/07/16 06/08/16 06/08/16 18:59 06:59 18:59 Intake Total 90.3 975 450 Output Total 675 200 Balance 90.3 300 250 Weight 68.3 kg 72.7 kg Intake: IV 90.3 975 450 0.9 150 Sodium Chloride 0.9% 1, 75 975 300 000 ml @ 75 mls/hr IV . [id number] [facility] Rx#:[id number] Output: Urine 675 200 Other: Voiding Method Bedpan Bedpan Bedpan Incontinent Incontinent Incontinent # Voids 1 0 0 ABP, PAP, CO, CI - Last Documented Arterial Blood Pressure 119/52 - Exam General: The patient is awake and alert, in no distress Eye: there is normal conjunctiva bilaterally. Neck: The neck is supple, there is no JVD. Cardiovascular: Normal S1-S2, no S3-S4, no murmurs. Respiratory: Lungs clear to auscultation bilaterally Gastrointestinal: Abdomen is soft, nontender Musculoskeletal: There is no pedal edema. Neurological:. Speech is normal. Skin: Skin is warm and dry - Labs CBC & Chem 7: 06/08/16 04:28 06/08/16 11:30 Labs: Abnormal Lab Results - Last 24 Hours (Table) 06/07/16 06/07/16 06/08/16 Range/Units 16:46 22:08 02:22 WBC (3.8-10.6) k/uL RBC (3.80-5.40) m/uL Hgb (11.4-16.0) gm/dL Hct (34.0-46.0) % Neutrophils # (1.3-7.7) k/uL Sodium (137-145) mmol/L Potassium (3.5-5.1) mmol/L Carbon Dioxide (22-30) mmol/L BUN (7-17) mg/dL Creatinine (0.52-1.04) mg/dL Glucose (74-99) mg/dL POC Glucose (mg/dL) 190 H 323 H 213 H (75-99) mg/dL 06/08/16 06/08/16 06/08/16 Range/Units 04:28 05:24 07:51 WBC 15.4 H (3.8-10.6) k/uL RBC 3.51 L (3.80-5.40) m/uL Hgb 10.4 L (11.4-16.0) gm/dL Hct 33.4 L (34.0-46.0) % Neutrophils # 13.4 H (1.3-7.7) k/uL Sodium 136 L (137-145) mmol/L Potassium 6.7 H* (3.5-5.1) mmol/L Carbon Dioxide 18 L (22-30) mmol/L BUN 36 H (7-17) mg/dL Creatinine 1.50 H (0.52-1.04) mg/dL Glucose 259 H (74-99) mg/dL POC Glucose (mg/dL) 261 H (75-99) mg/dL 06/08/16 06/08/16 Range/Units 11:30 12:10 WBC (3.8-10.6) k/uL RBC (3.80-5.40) m/uL Hgb (11.4-16.0) gm/dL Hct (34.0-46.0) % Neutrophils # (1.3-7.7) k/uL Sodium (137-145) mmol/L Potassium 5.9 H (3.5-5.1) mmol/L Carbon Dioxide (22-30) mmol/L BUN (7-17) mg/dL Creatinine (0.52-1.04) mg/dL Glucose (74-99) mg/dL POC Glucose (mg/dL) 211 H (75-99) mg/dL Assessment and Plan Plan: 1. UTI with urine culture growing pansensitive susceptible Klebsiella. Currently on oral Levaquin with good tolerance. 2. Episode of chest pain with EKG showing T-wave inversion. Patient was seen and evaluated by cardiology and underwent a left heart catheterization showing severe disease involving the RCA with no intervention recommended. Continue optimal medical management. Attempted FFR to LAD failed as the machine is not functioning. Cardiology following closely. 3. Nausea and vomiting secondary to oral antibiotic. Now resolved. 4. Leukocytosis present on admission secondary to UTI. Now resolved. 5. Elevated lactic acid level of 2.1 patient was given IV fluids and now it is down to 1.7. This is secondary to the UTI. 6. Acute on Chronic kidney disease stage IIIB. Acute kidney injury secondary to dehydration. Creatinine close to baseline now at 1.12. Fluids are currently KVO 7. Hyperkalemia: Potassium 5.2. We'll give 1 dose of Kayexalate. Lisinopril was discontinued 8. Insulin-dependent diabetes mellitus type 2: Resume her NovoLog 70/30 and glipizide. Also add sliding scale coverage hemoglobin A1c 9.3 9. Nicotine dependence: Patient was counseled on smoking cessation for approximately 5 minutes. Add nicotine patch 10. Patient has history of peripheral vascular disease with previous amputations of the toes 11. Previous history of myocardial infarction and coronary artery disease 12. GI prophylaxis. Patient is on Pepcid, DVT prophylaxis she is on subcu heparin Plan for today: Repeat potassium level stat. Continue ICU care. Awaiting further recommendations by cardiology.
[2016-06-08] MEDS: LEVOFLOXACIN 250 MG TAB PO SCH (14:02)
[2016-06-08] MEDS: ISOSORBIDE MONONITRATE ER 60 MG TAB.ER.24H PO SCH (14:49)
[2016-06-08 16:55] LABS: Glucose,Whole Blood 301 mg/dL (75-99)
[2016-06-08 21:01] LABS: Glucose,Whole Blood 155 mg/dL (75-99)
[2016-06-08] MEDS: ATORVASTATIN 80 MG TAB PO SCH (22:15)
[2016-06-09] MEDS: HYDROmorphone 1 MG/ML 1 ML SYRINGE IVP PRN ×4 (02:58→18:34)
[2016-06-09] MEDS: ALPRAZolam 0.5 MG TAB PO PRN ×2 (02:58→09:35)
[2016-06-09 05:35] LABS: Glucose,Whole Blood 105 mg/dL (75-99)
[2016-06-09] MEDS: INSULIN LISPRO (humaLOG) 300 UNIT/3 ML VIAL SQ SCH ×4 (06:43→23:04)
[2016-06-09 06:53] LABS: Basophils % (A) 0 %; CH 30.3; CHCM 31.4; Eosinophils # (A) 0.1 k/uL (0-0.7); Eosinophils % (A) 1 %; HDW 2.54; HGB 9.8 gm/dL (11.4-16.0); Hypochromasia Slight; Luc # (Auto) 0.17; Luc % (Auto) 1; Lymphocytes # (A) 2.7 k/uL (1.0-4.8); Lymphocytes % (A) 19 %; MCH 30.7 pg (25.0-35.0); MCHC 31.7 g/dL (31.0-37.0); Mean Platelet Volume 6.8; Monocytes # (A) 0.5 k/uL (0-1.0); Monocytes % (A) 4 %; Neutrophils # (A) 10.5 k/uL (1.3-7.7); Neutrophils % (A) 75 %; RBC 3.19 m/uL (3.80-5.40); RDW 13.3 % (11.5-15.5); WBC (Perox) 14.47
[2016-06-09] MEDS: INSULIN NPH/REG INSULIN 70/30 300 UNIT/3 ML VIAL SQ SCH ×2 (07:09→18:13)
[2016-06-09 07:13] LABS: Calcium 8.1 mg/dL (8.4-10.2); Magnesium 1.5 mg/dL (1.6-2.3); Potassium 4.5 mmol/L (3.5-5.1)
[2016-06-09] MEDS: CILOSTAZOL 100 MG TAB PO SCH ×2 (09:36→21:42)
[2016-06-09] MEDS: GABAPENTIN 400 MG CAP PO SCH ×3 (09:36→21:42)
[2016-06-09] MEDS: METOPROLOL TARTRATE 50 MG TAB PO SCH ×3 (09:37→21:43)
[2016-06-09] MEDS: SERTRALINE 100 MG TAB PO SCH (09:37)
[2016-06-09] MEDS: ISOSORBIDE MONONITRATE ER 60 MG TAB.ER.24H PO SCH (09:37)
[2016-06-09] MEDS: CLOPIDOGREL 75 MG TAB PO SCH (09:38)
[2016-06-09] MEDS: FAMOTIDINE 20 MG TAB PO SCH (09:38)
[2016-06-09] MEDS: amLODIPine 5 MG TAB PO SCH ×2 (09:38→21:43)
[2016-06-09] MEDS: EZETIMIBE 10 MG TAB PO SCH (09:38)
[2016-06-09] MEDS: NICOTINE 21MG/24HR PATCH TRANSDERM SCH (09:38)
[2016-06-09] MEDS: HEPARIN SODIUM,PORCINE 5,000 UNIT/ML 1 ML VIAL SQ SCH ×2 (09:42→21:48)
[2016-06-09] MEDS: HYDROcodone/APAP 10-325MG 1 EACH TAB PO SCH ×3 (09:42→21:42)
[2016-06-09 11:59] LABS: Glucose,Whole Blood 159 mg/dL (75-99)
--- NOTE | 2016-06-09 12:30 | P.PN ---
Subjective Patient is feeling generally weak. No events overnight. Kidney function is getting slightly worse. Objective - Vital Signs Vital signs: Vital Signs Temp 96.8 F L 06/09/16 12:00 Pulse 73 06/09/16 12:00 Resp 16 06/09/16 12:00 BP 107/51 06/09/16 12:00 Pulse Ox 95 06/09/16 12:00 Intake & Output 06/08/16 06/09/16 06/09/16 18:59 06:59 18:59 Intake Total 600 240 Output Total 200 Balance 400 240 Weight 71.4 kg Intake: IV 600 0.9 300 Sodium Chloride 0.9% 1, 300 000 ml @ 75 mls/hr IV . [id number] [facility] Rx#:[id number] Oral 240 Output: Urine 200 Other: Voiding Method Bedpan Toilet Toilet Incontinent # Voids 0 1 ABP, PAP, CO, CI - Last Documented Arterial Blood Pressure 119/52 - Exam General: The patient is awake and alert, in no distress Eye: there is normal conjunctiva bilaterally. Neck: The neck is supple, there is no JVD. Cardiovascular: Normal S1-S2, no S3-S4, no murmurs. Respiratory: Lungs clear to auscultation bilaterally Gastrointestinal: Abdomen is soft, nontender Musculoskeletal: There is no pedal edema. Neurological:. Speech is normal. Skin: Skin is warm and dry - Labs CBC & Chem 7: 06/09/16 06:10 06/09/16 06:10 Labs: Abnormal Lab Results - Last 24 Hours (Table) 06/08/16 06/08/16 06/08/16 Range/Units 16:54 17:36 20:59 WBC (3.8-10.6) k/uL RBC (3.80-5.40) m/uL Hgb (11.4-16.0) gm/dL Hct (34.0-46.0) % Neutrophils # (1.3-7.7) k/uL Potassium 5.2 H (3.5-5.1) mmol/L Chloride (98-107) mmol/L Carbon Dioxide (22-30) mmol/L BUN (7-17) mg/dL Creatinine (0.52-1.04) mg/dL POC Glucose (mg/dL) 301 H 155 H (75-99) mg/dL Calcium (8.4-10.2) mg/dL Magnesium (1.6-2.3) mg/dL 06/09/16 06/09/16 06/09/16 Range/Units 05:33 06:10 06:10 WBC 14.0 H (3.8-10.6) k/uL RBC 3.19 L (3.80-5.40) m/uL Hgb 9.8 L (11.4-16.0) gm/dL Hct 31.0 L (34.0-46.0) % Neutrophils # 10.5 H (1.3-7.7) k/uL Potassium (3.5-5.1) mmol/L Chloride 112 H (98-107) mmol/L Carbon Dioxide 20 L (22-30) mmol/L BUN 43 H (7-17) mg/dL Creatinine 1.72 H (0.52-1.04) mg/dL POC Glucose (mg/dL) 105 H (75-99) mg/dL Calcium 8.1 L (8.4-10.2) mg/dL Magnesium 1.5 L (1.6-2.3) mg/dL 06/09/16 Range/Units 11:47 WBC (3.8-10.6) k/uL RBC (3.80-5.40) m/uL Hgb (11.4-16.0) gm/dL Hct (34.0-46.0) % Neutrophils # (1.3-7.7) k/uL Potassium (3.5-5.1) mmol/L Chloride (98-107) mmol/L Carbon Dioxide (22-30) mmol/L BUN (7-17) mg/dL Creatinine (0.52-1.04) mg/dL POC Glucose (mg/dL) 159 H (75-99) mg/dL Calcium (8.4-10.2) mg/dL Magnesium (1.6-2.3) mg/dL Assessment and Plan Plan: 1. UTI with urine culture growing pansensitive susceptible Klebsiella. Currently on oral Levaquin with good tolerance. 2. Episode of chest pain with EKG showing T-wave inversion. Patient was seen and evaluated by cardiology and underwent a left heart catheterization showing severe disease involving the RCA with no intervention recommended. Continue optimal medical management. Attempted FFR to LAD failed as the machine is not functioning. Cardiology following closely. 3. Acute kidney injury with history of congenital solitary kidney: Possibly attributed to dehydration and tobramycin toxicity that was used on presentation for her underlying UTI. We will continue IV fluid hydration. Obtain ultrasound of the kidney. Consult nephrology. Hold nephrotoxic. 4. Insulin-dependent diabetes mellitus type 2: Resume her NovoLog 70/30 and glipizide. Also add sliding scale coverage hemoglobin A1c 9.3 5. Nicotine dependence: Patient was counseled on smoking cessation for approximately 5 minutes. Add nicotine patch 6. Patient has history of peripheral vascular disease with previous amputations of the toes 7. Previous history of myocardial infarction and coronary artery disease 8. GI prophylaxis. Patient is on Pepcid, DVT prophylaxis she is on subcu heparin
[2016-06-09] MEDS: MAGNESIUM SULFATE-D5W PMX 1 GM in DEXTROSE/WATER 1 100ML.BAG IVPB SCH ×2 (12:54→14:47)
--- NOTE | 2016-06-09 14:26 | P.PN ---
Subjective Principal diagnosis: Chest pain This is a pleasant 70-year-old female with past medical history significant for hypertension, hyperlipidemia, hypertension, asthma, COPD, prior CVA, diabetes, hyperlipidemia, renal disease, patient only has one kidney, she presented to the hospital with symptoms of chest discomfort. Her EKG revealed changes consistent with ischemia and for this reason she underwent a cardiac catheterization by Dr. Urbano which revealed severe disease involving the distal right coronary artery with a long tubular lesion, intermediate disease involving the proximal LAD, intermediate disease involving the first OM branch of the left circumflex. Medical therapy was initially advised, patient was seen and examined this morning, had 2 episodes of midsternal chest pressure with radiation to the shoulder blade area. Patient was scheduled undergone FFR , however the equipment had some malfunction and this was not performed. After the procedure, patient's blood pressure was significantly elevated therefore patient went to the intensive care unit on a nitro drip. She now is being followed on the telemetry unit. Overall no complaints. Blood pressure 108/60, heart rate in the 70s. Creatinine 1.7 today. Objective - Vital Signs Vital signs: Vital Signs Temp 96.8 F L 06/09/16 12:00 Pulse 73 06/09/16 12:00 Resp 16 06/09/16 12:00 BP 107/51 06/09/16 12:00 Pulse Ox 95 06/09/16 12:00 Intake & Output 06/08/16 06/09/16 06/09/16 18:59 06:59 18:59 Intake Total 600 240 Output Total 200 Balance 400 240 Weight 71.4 kg Intake: IV 600 0.9 300 Sodium Chloride 0.9% 1, 300 000 ml @ 75 mls/hr IV . [id number] [facility] Rx#:[id number] Oral 240 Output: Urine 200 Other: Voiding Method Bedpan Toilet Toilet Incontinent # Voids 0 1 ABP, PAP, CO, CI - Last Documented Arterial Blood Pressure 119/52 - Exam PHYSICAL EXAMINATION: HEENT: Head is atraumatic, normocephalic. Pupils equal, round. Neck is supple. There is no elevated jugular venous pressure. HEART EXAMINATION: Heart S1, S2 normal. No murmur or gallop heard. CHEST EXAMINATION: Lungs are clear to auscultation and precussion. No chest wall tenderness is noted on palpation or with deep breathing. ABDOMEN: Soft, nontender. Bowel sounds are heard. No organomegaly noted. EXTREMITIES: 2+ peripheral pulses with no evidence of peripheral edema and no calf tenderness noted. NEUROLOGIC patient is awake, alert and oriented -3. . - Labs CBC & Chem 7: 06/09/16 06:10 06/09/16 06:10 Labs: Abnormal Lab Results - Last 24 Hours (Table) 06/08/16 06/08/16 06/08/16 Range/Units 16:54 17:36 20:59 WBC (3.8-10.6) k/uL RBC (3.80-5.40) m/uL Hgb (11.4-16.0) gm/dL Hct (34.0-46.0) % Neutrophils # (1.3-7.7) k/uL Potassium 5.2 H (3.5-5.1) mmol/L Chloride (98-107) mmol/L Carbon Dioxide (22-30) mmol/L BUN (7-17) mg/dL Creatinine (0.52-1.04) mg/dL POC Glucose (mg/dL) 301 H 155 H (75-99) mg/dL Calcium (8.4-10.2) mg/dL Magnesium (1.6-2.3) mg/dL 06/09/16 06/09/16 06/09/16 Range/Units 05:33 06:10 06:10 WBC 14.0 H (3.8-10.6) k/uL RBC 3.19 L (3.80-5.40) m/uL Hgb 9.8 L (11.4-16.0) gm/dL Hct 31.0 L (34.0-46.0) % Neutrophils # 10.5 H (1.3-7.7) k/uL Potassium (3.5-5.1) mmol/L Chloride 112 H (98-107) mmol/L Carbon Dioxide 20 L (22-30) mmol/L BUN 43 H (7-17) mg/dL Creatinine 1.72 H (0.52-1.04) mg/dL POC Glucose (mg/dL) 105 H (75-99) mg/dL Calcium 8.1 L (8.4-10.2) mg/dL Magnesium 1.5 L (1.6-2.3) mg/dL 06/09/16 Range/Units 11:47 WBC (3.8-10.6) k/uL RBC (3.80-5.40) m/uL Hgb (11.4-16.0) gm/dL Hct (34.0-46.0) % Neutrophils # (1.3-7.7) k/uL Potassium (3.5-5.1) mmol/L Chloride (98-107) mmol/L Carbon Dioxide (22-30) mmol/L BUN (7-17) mg/dL Creatinine (0.52-1.04) mg/dL POC Glucose (mg/dL) 159 H (75-99) mg/dL Calcium (8.4-10.2) mg/dL Magnesium (1.6-2.3) mg/dL Assessment and Plan (1) Diabetes Status: Acute (2) Hyperlipemia Status: Acute (3) Chest pain Status: Acute (4) Diabetes mellitus Status: Acute (5) Hypertension Status: Acute (6) Peripheral vascular disease Status: Acute Plan: From cardiology's perspective, we will continue with the patient's current medications. Once she is discharged home from the hospital a stress test will be scheduled as an outpatient. She will have a follow-up appointment with Dr. Urbano in the office. DNP note has been reviewed, I agree with a documented findings and plan of care. Patient was seen and examined.
--- NOTE | 2016-06-09 15:52 | US ---
EXAMINATION TYPE: US kidneys/renal and bladder DATE OF EXAM: 06/09/2016 2:22 PM COMPARISON: CT abdomen pelvis 02 June 2016 CLINICAL HISTORY: Altered kidney functions. EXAM MEASUREMENTS: Right Kidney: 12.4 x 5.1 x 6.0cm Left Kidney: not visualized ANATOMY: TECHNOLOGIST IMPRESSION: Large body habitus Right Kidney: scattered echogenic foci Left Kidney: not seen by CT, not seen by today's ultrasound Bladder: not fully distended Cortical medullary differentiation maintained in the right kidney. No evident hydronephrosis. IMPRESSION: There may be vascular calcifications, right-sided nephrolithiasis. Absent left kidney.
[2016-06-09] MEDS: LEVOFLOXACIN 250 MG TAB PO SCH (16:24)
[2016-06-09 17:19] LABS: Glucose,Whole Blood 110 mg/dL (75-99)
[2016-06-09 20:15] LABS: Glucose,Whole Blood 161 mg/dL (75-99)
[2016-06-09] MEDS: ATORVASTATIN 80 MG TAB PO SCH (21:42)
[2016-06-10] MEDS: HYDROmorphone 1 MG/ML 1 ML SYRINGE IVP PRN ×4 (03:17→21:48)
[2016-06-10] MEDS: INSULIN LISPRO (humaLOG) 300 UNIT/3 ML VIAL SQ SCH ×4 (06:38→21:25)
[2016-06-10 06:44] LABS: Glucose,Whole Blood 102 mg/dL (75-99)
[2016-06-10 06:49] LABS: Calcium 8.1 mg/dL (8.4-10.2); Magnesium 2.1 mg/dL (1.6-2.3); Potassium 4.6 mmol/L (3.5-5.1)
[2016-06-10 06:49] LABS: Basophils % (A) 0 %; CH 30.3; CHCM 31.6; Eosinophils # (A) 0.3 k/uL (0-0.7); Eosinophils % (A) 2 %; HCT 30.2 % (34.0-46.0); HDW 2.54; HGB 9.6 gm/dL (11.4-16.0); Luc # (Auto) 0.17; Luc % (Auto) 1; Lymphocytes # (A) 2.2 k/uL (1.0-4.8); Lymphocytes % (A) 19 %; MCH 30.7 pg (25.0-35.0); MCHC 31.8 g/dL (31.0-37.0); MCV 96.5 fL (80.0-100.0); Mean Platelet Volume 7.3; Monocytes # (A) 0.5 k/uL (0-1.0); Monocytes % (A) 4 %; Neutrophils # (A) 8.5 k/uL (1.3-7.7); Neutrophils % (A) 73 %; RBC 3.13 m/uL (3.80-5.40); RDW 13.5 % (11.5-15.5); WBC 11.7 k/uL (3.8-10.6); WBC (Perox) 11.14
[2016-06-10] MEDS: INSULIN NPH/REG INSULIN 70/30 300 UNIT/3 ML VIAL SQ SCH ×2 (07:07→17:37)
[2016-06-10] MEDS: FAMOTIDINE 20 MG TAB PO SCH (09:12)
[2016-06-10] MEDS: CILOSTAZOL 100 MG TAB PO SCH ×2 (09:12→21:25)
[2016-06-10] MEDS: CLOPIDOGREL 75 MG TAB PO SCH (09:12)
[2016-06-10] MEDS: EZETIMIBE 10 MG TAB PO SCH (09:12)
[2016-06-10] MEDS: amLODIPine 5 MG TAB PO SCH ×2 (09:12→21:26)
[2016-06-10] MEDS: HYDROcodone/APAP 10-325MG 1 EACH TAB PO SCH ×3 (09:13→21:23)
[2016-06-10] MEDS: HEPARIN SODIUM,PORCINE 5,000 UNIT/ML 1 ML VIAL SQ SCH ×2 (09:13→21:25)
[2016-06-10] MEDS: GABAPENTIN 400 MG CAP PO SCH ×3 (09:13→21:26)
[2016-06-10] MEDS: METOPROLOL TARTRATE 50 MG TAB PO SCH ×3 (09:15→21:25)
[2016-06-10] MEDS: NICOTINE 21MG/24HR PATCH TRANSDERM SCH (09:15)
[2016-06-10] MEDS: ISOSORBIDE MONONITRATE ER 60 MG TAB.ER.24H PO SCH (09:15)
[2016-06-10] MEDS: SERTRALINE 100 MG TAB PO SCH (09:16)
--- NOTE | 2016-06-10 10:24 | P.NPCON ---
History of Present Illness - Reason for Consult acute renal failure - History of Present Illness Reason for consultation: Acute kidney injury History of present illness: Patient is a 70-year-old female seen in renal consultation for acute kidney injury. Her baseline creatinine is near 1. Renal function has been gradually worsening with creatinine at 1.72 yesterday and 2.44 today. Patient' s noted to have a urinary tract infection with urine culture positive for Klebsiella. She did receive tobramycin which has been changed to Levaquin. Her tobramycin level was high at 2.7 as of June 05. She also had episodes of chest pain for which she initially underwent cardiac catheterization on June 03 which revealed multivessel disease. No interventions were done at that time. She continued to have chest pain and underwent repeat cardiac catheterization on June 07. FFR to LAD was attempted but failed as a machine was malfunctioning. Currently the patient is resting in bed. She denies any chest pain or shortness of breath. Appetite is good. Denies any vomiting or diarrhea. Denies regular use of NSAIDs at home. Denies hematuria or dysuria. She does have a congenital solitary right kidney. Vital signs are stable. General: The patient appeared well nourished and normally developed. HEENT: Head exam is unremarkable. Neck is without jugular venous distension. LUNGS: Lungs are clear to auscultation and percussion. Breath sounds decreased. HEART: Rate and Rhythm are regular. First and second heart sounds normal. No murmurs, rubs or gallops. ABDOMEN: Abdominal exam reveals normal bowel sounds. Non-tender and non- distended. No evidence of peritonitis. EXTREMITITES: No clubbing, cyanosis, or edema. Past Medical History Past Medical History: Asthma, Coronary Artery Disease (CAD), Chest Pain / Angina , COPD, CVA/TIA, Diabetes Mellitus, Deep Vein Thrombosis (DVT), Hyperlipidemia, Hypertension, Myocardial Infarction ([place]), Osteoarthritis (OA), Pneumonia, Renal Disease Additional Past Medical History / Comment(s): pt states she has one kidney, heart murmur, trouble staying asleep, hemroids, claustrophobic Last Myocardial Infarction Date:: around 2008 History of Any Multi-Drug Resistant Organisms: None Reported Past Surgical History: Appendectomy, Hysterectomy Additional Past Surgical History / Comment(s): lt femoral-pop bypass and amputation. Mar 2014. Amputation 2nd, 3rd, 4th toe Past Anesthesia/Blood Transfusion Reactions: No Reported Reaction Past Psychological History: Anxiety, Depression Additional Psychological History / Comment(s): pt stated has some mild depression d/t medical problems but not hopelss-denies any thoughts of harming self or others, no suicidal ideations.stated recent moved to a new apt that has no w/c ramp so she can't use her wheel chair. does use a cane and stated has had some falls. Smoking Status: Former smoker Past Alcohol Use History: None Reported Additional Past Alcohol Use History / Comment(s): Patient is a smoker of 2 packs per day for 55 years stated she quit officially 4 days ago. She denies any medical marijuana, marijuana, street drug use. She denies any alcohol use or abuse. She has been on disability for long period of time. She is currently living alone. Past Drug Use History: None Reported - Past Family History Mother Family Medical History: Cancer, Diabetes Mellitus, Myocardial Infarction ([place]) Additional Family Medical History / Comment(s): from aortic anurysm Father Family Medical History: Renal Disease Medications and Allergies Home Medications Medication Instructions Recorded Confirmed Type Albuterol Inhaler [Ventolin Hfa 2 puff INHALATION RT-Q6H PRN 06/02/16 06/02/16 History Inhaler] Cilostazol [Pletal] 100 mg PO BID 06/02/16 06/02/16 History Clopidogrel [Plavix] 75 mg PO DAILY 06/02/16 06/02/16 History Ezetimibe [Zetia] 10 mg PO DAILY 06/02/16 06/02/16 History Famotidine [Pepcid] 20 mg PO BID 06/02/16 06/02/16 History Fluticasone Nasal [place] [Flonase 2 spr EA NOSTRIL DAILY PRN 06/02/16 06/02/16 History Nasal [place]] Gabapentin 800 mg PO TID 06/02/16 06/02/16 History Hydrocodone/Acetaminophen [[place] 1 tab PO TID 06/02/16 06/02/16 History 10-325] Insulin NPH Hum/Reg Insulin Hm See Protocol SQ BID 06/02/16 06/02/16 History [NovoLIN 70-30 100 UNIT/ML VIAL] Lisinopril [Zestril] 10 mg PO DAILY 06/02/16 06/02/16 History Sertraline HCl [Zoloft] 100 mg PO DAILY 06/02/16 06/02/16 History oxyCODONE ER [OxyCONTIN 15MG E.R] 15 mg PO DAILY PRN 06/02/16 06/02/16 History Allergies Allergy/AdvReac Type Severity Reaction Status Date / Time Iodinated Contrast Media - Allergy Severe Anaphylaxis Verified 06/02/16 16:48 Oral and [Iodinated Contrast Media - IV Dye] Iodine and Iodide Containing Allergy Severe Rash/Hives/ Verified 06/02/16 16:48 Produc Swelling aspirin Allergy Rash/Hives Verified 06/02/16 16:48 cephalexin monohydrate Allergy Swelling Verified 06/02/16 16:48 [From Keflex] ciprofloxacin Allergy Unknown Verified 06/02/16 16:48 Penicillins Allergy Swelling Verified 06/02/16 16:48 Sulfa (Sulfonamide Allergy Rash/Hives Verified 06/02/16 16:48 Antibiotics) Physical Exam Vitals: Vital Signs Temp Pulse Resp BP Pulse Ox 06/10/16 03:59 97.2 F L 63 18 130/60 93 L 06/10/16 00:00 97 F L 60 18 101/55 93 L 06/09/16 20:00 97.4 F L 60 18 101/49 95 06/09/16 16:00 97.8 F 66 16 97/56 95 06/09/16 12:00 96.8 F L 73 16 107/51 95 Intake and Output 06/09/16 06/10/16 06/10/16 22:59 06:59 14:59 Intake Total 180 100 Output Total 250 Balance 180 -150 Intake: Oral 180 100 Output: Urine 250 Other: Voiding Method Toilet Toilet Weight 73.9 kg Results - Lab Results Most recent lab results Calcium 8.1 mg/dL (8.4-10.2) L 06/10/16 06:03 Magnesium 2.1 mg/dL (1.6-2.3) 06/10/16 06:03 06/10/16 06:05 06/10/16 06:03 Assessment and Plan Plan: Assessment: #1. Nonoliguric acute kidney injury secondary to ATN secondary to contrast- induced nephropathy as well as aminoglycoside toxicity. Hemodynamic instability also a contributing factor. Her blood pressures have been quite labile with systolic blood pressure greater than 200 on June 05 and 97 on June 09. Baseline creatinine is 1. Elevated at 2.4 today. #2. Urinary tract infection with urine culture positive for Klebsiella. #3. Solitary right kidney. #4. 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 #5. Coronary artery disease status post cardiac catheterization on June 03 as well as June 07. #6. Anemia. Rule out iron deficiency. #7. Insulin-dependent diabetes mellitus. Plan: Start IV hydration with normal saline to be run at 50 mL an hour. Check postvoid residual. Check urine eosinophils. Avoid nephrotoxic agents and hypotensive episodes. To hold antihypertensives for systolic blood pressure less than 120. Quantify proteinuria once GFR returns to baseline. This can be done as an outpatient. Repeat electrolytes in the morning. Thank you for the consultation. I will continue to follow the patient with you during her hospital stay.
[2016-06-10 12:02] LABS: Glucose,Whole Blood 129 mg/dL (75-99)
[2016-06-10] MEDS: SODIUM CHLORIDE 0.9% 1,000 ML IV SCH (12:59)
--- NOTE | 2016-06-10 13:41 | P.PN ---
Subjective Principal diagnosis: Chest pain This is a pleasant 70-year-old female with past medical history significant for hypertension, hyperlipidemia, hypertension, asthma, COPD, prior CVA, diabetes, hyperlipidemia, renal disease, patient only has one kidney, she presented to the hospital with symptoms of chest discomfort. Her EKG revealed changes consistent with ischemia and for this reason she underwent a cardiac catheterization by Dr. Urbano which revealed severe disease involving the distal right coronary artery with a long tubular lesion, intermediate disease involving the proximal LAD, intermediate disease involving the first OM branch of the left circumflex. Medical therapy was initially advised, patient was seen and examined this morning, had 2 episodes of midsternal chest pressure with radiation to the shoulder blade area. Patient was scheduled undergone FFR , however the equipment had some malfunction and this was not performed. After the procedure, patient's blood pressure was significantly elevated therefore patient went to the intensive care unit on a nitro drip. She now is being followed on the telemetry unit. Overall no complaints. Creatinine up to 2.4. Not at present on any nephrotoxic agents. The cystic complaints today. Objective - Vital Signs Vital signs: Vital Signs Temp 97.5 F L 06/10/16 11:30 Pulse 50 L 06/10/16 11:30 Resp 18 06/10/16 11:30 BP 119/58 06/10/16 11:30 Pulse Ox 92 L 06/10/16 11:30 Intake & Output 06/09/16 06/10/16 06/10/16 18:59 06:59 18:59 Intake Total 660 100 180 Output Total 250 Balance 660 -150 180 Weight 73.9 kg Intake: Oral 660 100 180 Output: Urine 250 Other: Voiding Method Toilet Toilet Toilet ABP, PAP, CO, CI - Last Documented Arterial Blood Pressure 119/52 - Exam PHYSICAL EXAMINATION: HEENT: Head is atraumatic, normocephalic. Pupils equal, round. Neck is supple. There is no elevated jugular venous pressure. HEART EXAMINATION: Heart S1, S2 normal. No murmur or gallop heard. CHEST EXAMINATION: Lungs are clear to auscultation and precussion. No chest wall tenderness is noted on palpation or with deep breathing. ABDOMEN: Soft, nontender. Bowel sounds are heard. No organomegaly noted. EXTREMITIES: 2+ peripheral pulses with no evidence of peripheral edema and no calf tenderness noted. NEUROLOGIC patient is awake, alert and oriented -3. . - Labs CBC & Chem 7: 06/10/16 06:05 06/10/16 06:03 Labs: Abnormal Lab Results - Last 24 Hours (Table) 06/09/16 06/09/16 06/10/16 Range/Units 17:13 20:09 06:03 WBC (3.8-10.6) k/uL RBC (3.80-5.40) m/uL Hgb (11.4-16.0) gm/dL Hct (34.0-46.0) % Neutrophils # (1.3-7.7) k/uL Chloride 110 H (98-107) mmol/L BUN 47 H (7-17) mg/dL Creatinine 2.44 H (0.52-1.04) mg/dL POC Glucose (mg/dL) 110 H 161 H (75-99) mg/dL Calcium 8.1 L (8.4-10.2) mg/dL 06/10/16 06/10/16 06/10/16 Range/Units 06:05 06:32 12:00 WBC 11.7 H (3.8-10.6) k/uL RBC 3.13 L (3.80-5.40) m/uL Hgb 9.6 L (11.4-16.0) gm/dL Hct 30.2 L (34.0-46.0) % Neutrophils # 8.5 H (1.3-7.7) k/uL Chloride (98-107) mmol/L BUN (7-17) mg/dL Creatinine (0.52-1.04) mg/dL POC Glucose (mg/dL) 102 H 129 H (75-99) mg/dL Calcium (8.4-10.2) mg/dL Assessment and Plan (1) Diabetes Status: Acute (2) Hyperlipemia Status: Acute (3) Chest pain Status: Acute (4) Diabetes mellitus Status: Acute (5) Hypertension Status: Acute (6) Peripheral vascular disease Status: Acute Plan: From cardiology's perspective, we will continue with the patient's current medications. We will make her a follow-up appointment with Dr. Macias in the office post discharge. She will also have outpatient stress testing performed. At this time we will follow this patient with you now on an as-needed basis only, please don't hesitate to call with any questions. DNP note has been reviewed, I agree with a documented findings and plan of care. Patient was seen and examined.
--- NOTE | 2016-06-10 13:52 | P.PN ---
Subjective Patient is doing well today. No events overnight. Kidney function is worsening. Objective - Vital Signs Vital signs: Vital Signs Temp 97.5 F L 06/10/16 11:30 Pulse 50 L 06/10/16 11:30 Resp 18 06/10/16 11:30 BP 119/58 06/10/16 11:30 Pulse Ox 92 L 06/10/16 11:30 Intake & Output 06/09/16 06/10/16 06/10/16 18:59 06:59 18:59 Intake Total 660 100 400 Output Total 250 Balance 660 -150 400 Weight 73.9 kg Intake: Oral 660 100 400 Output: Urine 250 Other: Voiding Method Toilet Toilet Toilet ABP, PAP, CO, CI - Last Documented Arterial Blood Pressure 119/52 - Exam General: The patient is awake and alert, in no distress Eye: there is normal conjunctiva bilaterally. Neck: The neck is supple, there is no JVD. Cardiovascular: Normal S1-S2, no S3-S4, no murmurs. Respiratory: Lungs clear to auscultation bilaterally Gastrointestinal: Abdomen is soft, nontender Musculoskeletal: There is no pedal edema. Neurological:. Speech is normal. Skin: Skin is warm and dry - Labs CBC & Chem 7: 06/10/16 06:05 06/10/16 06:03 Labs: Abnormal Lab Results - Last 24 Hours (Table) 06/09/16 06/09/16 06/10/16 Range/Units 17:13 20:09 06:03 WBC (3.8-10.6) k/uL RBC (3.80-5.40) m/uL Hgb (11.4-16.0) gm/dL Hct (34.0-46.0) % Neutrophils # (1.3-7.7) k/uL Chloride 110 H (98-107) mmol/L BUN 47 H (7-17) mg/dL Creatinine 2.44 H (0.52-1.04) mg/dL POC Glucose (mg/dL) 110 H 161 H (75-99) mg/dL Calcium 8.1 L (8.4-10.2) mg/dL 06/10/16 06/10/16 06/10/16 Range/Units 06:05 06:32 12:00 WBC 11.7 H (3.8-10.6) k/uL RBC 3.13 L (3.80-5.40) m/uL Hgb 9.6 L (11.4-16.0) gm/dL Hct 30.2 L (34.0-46.0) % Neutrophils # 8.5 H (1.3-7.7) k/uL Chloride (98-107) mmol/L BUN (7-17) mg/dL Creatinine (0.52-1.04) mg/dL POC Glucose (mg/dL) 102 H 129 H (75-99) mg/dL Calcium (8.4-10.2) mg/dL Assessment and Plan Plan: 1. UTI with urine culture growing pansensitive susceptible Klebsiella. Currently on oral Levaquin with good tolerance. 2. Episode of chest pain with EKG showing T-wave inversion. Patient was seen and evaluated by cardiology and underwent a left heart catheterization showing severe disease involving the RCA with no intervention recommended. Continue optimal medical management. Attempted FFR to LAD failed as the machine is not functioning. Cardiology following closely. 3. Acute kidney injury with history of congenital solitary kidney: Possibly attributed to dehydration and tobramycin toxicity that was used on presentation for her underlying UTI. We will continue IV fluid hydration. Obtain ultrasound of the kidney. Consult nephrology. Hold nephrotoxic. 4. Insulin-dependent diabetes mellitus type 2: Resume her NovoLog 70/30 and glipizide. Also add sliding scale coverage hemoglobin A1c 9.3 5. Nicotine dependence: Patient was counseled on smoking cessation for approximately 5 minutes. Add nicotine patch 6. Patient has history of peripheral vascular disease with previous amputations of the toes 7. Previous history of myocardial infarction and coronary artery disease 8. GI prophylaxis. Patient is on Pepcid, DVT prophylaxis she is on subcu heparin
[2016-06-10 15:36] LABS: % Iron Saturation 30.2 % (20-50)
[2016-06-10] MEDS: LEVOFLOXACIN 250 MG TAB PO SCH (16:11)
[2016-06-10 17:08] LABS: Glucose,Whole Blood 186 mg/dL (75-99)
[2016-06-10 21:22] LABS: Glucose,Whole Blood 182 mg/dL (75-99)
[2016-06-10] MEDS: ALPRAZolam 0.5 MG TAB PO PRN (21:23)
[2016-06-10] MEDS: ATORVASTATIN 80 MG TAB PO SCH (21:25)
[2016-06-11 06:42] LABS: Glucose,Whole Blood 74 mg/dL (75-99)
[2016-06-11] MEDS: INSULIN LISPRO (humaLOG) 300 UNIT/3 ML VIAL SQ SCH ×4 (06:57→20:46)
[2016-06-11] MEDS: SODIUM CHLORIDE 0.9% 1,000 ML IV SCH (06:58)
[2016-06-11] MEDS: HYDROmorphone 1 MG/ML 1 ML SYRINGE IVP PRN ×3 (06:58→20:31)
[2016-06-11 07:35] LABS: Calcium 7.8 mg/dL (8.4-10.2); Potassium 4.9 mmol/L (3.5-5.1)
--- NOTE | 2016-06-11 08:50 | P.PN ---
Subjective Principal diagnosis: Marisabel is feeling well. She has noticed decreased uop. Objective - Vital Signs Vital signs: Vital Signs Temp 98.1 F 06/11/16 00:00 Pulse 60 06/11/16 04:00 Resp 16 06/11/16 04:00 BP 108/52 06/11/16 04:00 Pulse Ox 94 L 06/11/16 04:00 Intake & Output 06/10/16 06/11/16 06/11/16 18:59 06:59 18:59 Intake Total 510 Balance 510 Weight 73.9 kg 76 kg Intake: Oral 510 Other: Voiding Method Toilet Toilet ABP, PAP, CO, CI - Last Documented Arterial Blood Pressure 119/52 - Constitutional General appearance: Present: cooperative, no acute distress - Respiratory Respiratory: bilateral: CTA - Cardiovascular Rhythm: regular Heart sounds: normal: S1, S2 - Peripheral edema leg Peripheral Edema: bilateral: None - Gastrointestinal General gastrointestinal: Present: soft - Labs CBC & Chem 7: 06/10/16 06:05 06/11/16 06:38 Labs: Abnormal Lab Results - Last 24 Hours (Table) 06/10/16 06/10/16 06/10/16 Range/Units 12:00 17:07 21:22 Chloride (98-107) mmol/L BUN (7-17) mg/dL Creatinine (0.52-1.04) mg/dL Glucose (74-99) mg/dL POC Glucose (mg/dL) 129 H 186 H 182 H (75-99) mg/dL Calcium (8.4-10.2) mg/dL 06/11/16 06/11/16 Range/Units 06:38 06:41 Chloride 111 H (98-107) mmol/L BUN 51 H (7-17) mg/dL Creatinine 2.63 H (0.52-1.04) mg/dL Glucose 66 L (74-99) mg/dL POC Glucose (mg/dL) 74 L (75-99) mg/dL Calcium 7.8 L (8.4-10.2) mg/dL Assessment and Plan Plan: #1. Nonoliguric acute kidney injury secondary to ATN Multifactoral: Labile HTN/ contrast nephropathy and tobra nephrotoxicty. --Renal function may be stabilizing now. Continue IVFs. --Check PVR. #2. Urinary tract infection with urine culture positive for Klebsiella. #3. Solitary right kidney. #4. 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 #5. Coronary artery disease status post cardiac catheterization on June 03 as well as June 07.
[2016-06-11] MEDS: FAMOTIDINE 20 MG TAB PO SCH (09:30)
[2016-06-11] MEDS: HYDROcodone/APAP 10-325MG 1 EACH TAB PO SCH ×3 (09:30→21:59)
[2016-06-11] MEDS: SERTRALINE 100 MG TAB PO SCH (09:30)
[2016-06-11] MEDS: GABAPENTIN 300 MG CAP PO SCH (09:31)
[2016-06-11] MEDS: CILOSTAZOL 100 MG TAB PO SCH ×2 (09:31→20:30)
[2016-06-11] MEDS: NICOTINE 21MG/24HR PATCH TRANSDERM SCH (09:31)
[2016-06-11] MEDS: METOPROLOL TARTRATE 50 MG TAB PO SCH ×3 (09:31→20:30)
[2016-06-11] MEDS: EZETIMIBE 10 MG TAB PO SCH (09:31)
[2016-06-11] MEDS: ISOSORBIDE MONONITRATE ER 60 MG TAB.ER.24H PO SCH (09:31)
[2016-06-11] MEDS: amLODIPine 5 MG TAB PO SCH ×2 (09:31→20:30)
[2016-06-11] MEDS: CLOPIDOGREL 75 MG TAB PO SCH (09:31)
[2016-06-11] MEDS: INSULIN NPH/REG INSULIN 70/30 300 UNIT/3 ML VIAL SQ SCH ×2 (09:32→17:40)
[2016-06-11] MEDS: HEPARIN SODIUM,PORCINE 5,000 UNIT/ML 1 ML VIAL SQ SCH ×2 (09:32→20:30)
[2016-06-11 09:46] LABS: Glucose,Whole Blood 161 mg/dL (75-99)
--- NOTE | 2016-06-11 12:32 | P.PN ---
Subjective No events overnight Objective - Vital Signs Vital signs: Vital Signs Temp 97.6 F 06/11/16 12:20 Pulse 73 06/11/16 12:20 Resp 16 06/11/16 12:20 BP 142/65 06/11/16 12:20 Pulse Ox 95 06/11/16 12:20 Intake & Output 06/10/16 06/11/16 06/11/16 18:59 06:59 18:59 Intake Total 510 Balance 510 Weight 73.9 kg 76 kg Intake: Oral 510 Other: Voiding Method Toilet Toilet Toilet ABP, PAP, CO, CI - Last Documented Arterial Blood Pressure 119/52 - Exam General: The patient is awake and alert, in no distress Eye: there is normal conjunctiva bilaterally. Neck: The neck is supple, there is no JVD. Cardiovascular: Normal S1-S2, no S3-S4, no murmurs. Respiratory: Lungs clear to auscultation bilaterally Gastrointestinal: Abdomen is soft, nontender Musculoskeletal: There is no pedal edema. Neurological:. Speech is normal. Skin: Skin is warm and dry - Labs CBC & Chem 7: 06/10/16 06:05 06/11/16 06:38 Labs: Abnormal Lab Results - Last 24 Hours (Table) 06/10/16 06/10/16 06/11/16 Range/Units 17:07 21:22 06:38 Chloride 111 H (98-107) mmol/L BUN 51 H (7-17) mg/dL Creatinine 2.63 H (0.52-1.04) mg/dL Glucose 66 L (74-99) mg/dL POC Glucose (mg/dL) 186 H 182 H (75-99) mg/dL Calcium 7.8 L (8.4-10.2) mg/dL 06/11/16 06/11/16 Range/Units 06:41 09:33 Chloride (98-107) mmol/L BUN (7-17) mg/dL Creatinine (0.52-1.04) mg/dL Glucose (74-99) mg/dL POC Glucose (mg/dL) 74 L 161 H (75-99) mg/dL Calcium (8.4-10.2) mg/dL Assessment and Plan Plan: 1. Acute kidney injury with history of congenital solitary kidney: Possibly attributed to dehydration and tobramycin toxicity that was used on presentation for her underlying UTI. We will continue IV fluid hydration. Ultrasound of the kidney reviewed showing right-sided nephrolithiasis with no evidence of hydronephrosis. Absent left kidney Nephrology following closely. 2. Episode of chest pain with EKG showing T-wave inversion. Patient was seen and evaluated by cardiology and underwent a left heart catheterization showing severe disease involving the RCA with no intervention recommended. Continue optimal medical management. Attempted FFR to LAD failed as the machine is not functioning. Cardiology following closely. 3. UTI with urine culture growing pansensitive susceptible Klebsiella. Currently on oral Levaquin with good tolerance. 4. Insulin-dependent diabetes mellitus type 2: Resume her NovoLog 70/30 and glipizide. Also add sliding scale coverage hemoglobin A1c 9.3 5. Nicotine dependence: Patient was counseled on smoking cessation for approximately 5 minutes. Add nicotine patch 6. Peripheral vascular disease with previous amputations of the toes 7. Previous history of myocardial infarction and coronary artery disease 8. Congenital solitary kidney with absent left kidney 9. GI prophylaxis. Patient is on Pepcid, DVT prophylaxis she is on subcu heparin
[2016-06-11 12:43] LABS: Glucose,Whole Blood 121 mg/dL (75-99)
[2016-06-11] MEDS: ALPRAZolam 0.5 MG TAB PO PRN ×2 (16:42→21:59)
[2016-06-11 17:19] LABS: Glucose,Whole Blood 143 mg/dL (75-99)
[2016-06-11] MEDS: ATORVASTATIN 80 MG TAB PO SCH (20:30)
[2016-06-11 21:26] LABS: Glucose,Whole Blood 155 mg/dL (75-99)
[2016-06-12] MEDS: HYDROmorphone 1 MG/ML 1 ML SYRINGE IVP PRN ×5 (00:15→18:21)
[2016-06-12] MEDS: ALPRAZolam 0.5 MG TAB PO PRN (04:08)
[2016-06-12 07:41] LABS: Glucose,Whole Blood 81 mg/dL (75-99)
[2016-06-12] MEDS: INSULIN LISPRO (humaLOG) 300 UNIT/3 ML VIAL SQ SCH ×4 (08:00→21:17)
[2016-06-12] MEDS: NICOTINE 21MG/24HR PATCH TRANSDERM SCH (08:01)
[2016-06-12] MEDS: INSULIN NPH/REG INSULIN 70/30 300 UNIT/3 ML VIAL SQ SCH ×2 (08:01→18:14)
[2016-06-12] MEDS: CLOPIDOGREL 75 MG TAB PO SCH (08:04)
[2016-06-12] MEDS: amLODIPine 5 MG TAB PO SCH ×2 (08:04→21:17)
[2016-06-12] MEDS: EZETIMIBE 10 MG TAB PO SCH (08:04)
[2016-06-12] MEDS: FAMOTIDINE 20 MG TAB PO SCH (08:04)
[2016-06-12] MEDS: HEPARIN SODIUM,PORCINE 5,000 UNIT/ML 1 ML VIAL SQ SCH ×2 (08:05→21:17)
[2016-06-12] MEDS: CILOSTAZOL 100 MG TAB PO SCH ×2 (08:05→21:17)
[2016-06-12] MEDS: SERTRALINE 100 MG TAB PO SCH (08:05)
[2016-06-12] MEDS: METOPROLOL TARTRATE 50 MG TAB PO SCH ×3 (08:05→21:17)
[2016-06-12] MEDS: ISOSORBIDE MONONITRATE ER 60 MG TAB.ER.24H PO SCH (08:05)
[2016-06-12] MEDS: GABAPENTIN 300 MG CAP PO SCH (08:05)
[2016-06-12 08:46] LABS: Calcium 8.3 mg/dL (8.4-10.2); Magnesium 2.1 mg/dL (1.6-2.3); Potassium 5.8 mmol/L (3.5-5.1)
--- NOTE | 2016-06-12 08:53 | P.PN ---
Subjective doing well. No complaints. Objective - Vital Signs Vital signs: Vital Signs Temp 97.1 F L 06/12/16 07:00 Pulse 65 06/12/16 07:00 Resp 16 06/12/16 07:00 BP 132/63 06/12/16 07:00 Pulse Ox 92 L 06/12/16 07:52 Intake & Output 06/11/16 06/12/16 06/12/16 18:59 06:59 18:59 Intake Total 110 Balance 110 Weight 76 kg Intake: Oral 110 Other: Voiding Method Toilet # Voids 3 # Bowel Movements 1 ABP, PAP, CO, CI - Last Documented Arterial Blood Pressure 119/52 - Constitutional General appearance: Present: no acute distress - Respiratory Respiratory: bilateral: CTA - Cardiovascular Rhythm: regular Heart sounds: normal: S1, S2 - Peripheral edema leg Peripheral Edema: bilateral: None - Gastrointestinal General gastrointestinal: Present: soft - Labs CBC & Chem 7: 06/10/16 06:05 06/12/16 08:02 Labs: Abnormal Lab Results - Last 24 Hours (Table) 06/11/16 06/11/16 06/11/16 Range/Units 09:33 12:11 17:18 Potassium (3.5-5.1) mmol/L Chloride (98-107) mmol/L BUN (7-17) mg/dL Creatinine (0.52-1.04) mg/dL Glucose (74-99) mg/dL POC Glucose (mg/dL) 161 H 121 H 143 H (75-99) mg/dL Calcium (8.4-10.2) mg/dL 06/11/16 06/12/16 Range/Units 20:42 08:02 Potassium 5.8 H (3.5-5.1) mmol/L Chloride 113 H (98-107) mmol/L BUN 51 H (7-17) mg/dL Creatinine 2.40 H (0.52-1.04) mg/dL Glucose 73 L (74-99) mg/dL POC Glucose (mg/dL) 155 H (75-99) mg/dL Calcium 8.3 L (8.4-10.2) mg/dL Assessment and Plan Plan: #1. Nonoliguric acute kidney injury secondary to ATN Multifactoral: Labile HTN/ contrast nephropathy and tobra nephrotoxicty. --BMP is pending. Continue IVFs. --Check PVR. #2. Urinary tract infection with urine culture positive for Klebsiella. #3. Solitary right kidney. #4. 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 #5. Coronary artery disease status post cardiac catheterization on June 03 and repeated on June 07.
[2016-06-12] MEDS ORDERED: SODIUM POLYSTYRENE SULFONATE 15 GM/60 ML BOTTLE PO STA (10:55)
[2016-06-12] MEDS: HYDROcodone/APAP 10-325MG 1 EACH TAB PO SCH ×3 (11:56→21:15)
[2016-06-12 12:14] LABS: Glucose,Whole Blood 139 mg/dL (75-99)
--- NOTE | 2016-06-12 12:24 | P.PN ---
Subjective No events overnight Objective - Vital Signs Vital signs: Vital Signs Temp 97.1 F L 06/12/16 07:00 Pulse 65 06/12/16 07:00 Resp 16 06/12/16 07:00 BP 132/63 06/12/16 07:00 Pulse Ox 92 L 06/12/16 07:52 Intake & Output 06/11/16 06/12/16 06/12/16 18:59 06:59 18:59 Intake Total 110 Balance 110 Weight 76 kg Intake: Oral 110 Other: Voiding Method Toilet # Voids 3 # Bowel Movements 1 ABP, PAP, CO, CI - Last Documented Arterial Blood Pressure 119/52 - Exam General: The patient is awake and alert, in no distress Eye: there is normal conjunctiva bilaterally. Neck: The neck is supple, there is no JVD. Cardiovascular: Normal S1-S2, no S3-S4, no murmurs. Respiratory: Lungs clear to auscultation bilaterally Gastrointestinal: Abdomen is soft, nontender Musculoskeletal: There is no pedal edema. Neurological:. Speech is normal. Skin: Skin is warm and dry - Labs CBC & Chem 7: 06/10/16 06:05 06/12/16 08:02 Labs: Abnormal Lab Results - Last 24 Hours (Table) 06/11/16 06/11/16 06/11/16 Range/Units 12:11 17:18 20:42 Potassium (3.5-5.1) mmol/L Chloride (98-107) mmol/L BUN (7-17) mg/dL Creatinine (0.52-1.04) mg/dL Glucose (74-99) mg/dL POC Glucose (mg/dL) 121 H 143 H 155 H (75-99) mg/dL Calcium (8.4-10.2) mg/dL 06/12/16 06/12/16 Range/Units 08:02 12:12 Potassium 5.8 H (3.5-5.1) mmol/L Chloride 113 H (98-107) mmol/L BUN 51 H (7-17) mg/dL Creatinine 2.40 H (0.52-1.04) mg/dL Glucose 73 L (74-99) mg/dL POC Glucose (mg/dL) 139 H (75-99) mg/dL Calcium 8.3 L (8.4-10.2) mg/dL Assessment and Plan Plan: 1. Acute kidney injury with history of congenital solitary kidney: Possibly attributed to dehydration and tobramycin toxicity that was used on presentation for her underlying UTI. We will continue IV fluid hydration. Ultrasound of the kidney reviewed showing right-sided nephrolithiasis with no evidence of hydronephrosis. Absent left kidney Nephrology following closely. 2. Episode of chest pain with EKG showing T-wave inversion. Patient was seen and evaluated by cardiology and underwent a left heart catheterization showing severe disease involving the RCA with no intervention recommended. Continue optimal medical management. Attempted FFR to LAD failed as the machine is not functioning. Cardiology following closely. 3. UTI with urine culture growing pansensitive susceptible Klebsiella. Currently on oral Levaquin with good tolerance. 4. Insulin-dependent diabetes mellitus type 2: Resume her NovoLog 70/30 and glipizide. Also add sliding scale coverage hemoglobin A1c 9.3 5. Nicotine dependence: Patient was counseled on smoking cessation for approximately 5 minutes. Add nicotine patch 6. Peripheral vascular disease with previous amputations of the toes 7. Previous history of myocardial infarction and coronary artery disease 8. Congenital solitary kidney with absent left kidney 9. GI prophylaxis. Patient is on Pepcid, DVT prophylaxis she is on subcu heparin
[2016-06-12] MEDS ORDERED: LEVOFLOXACIN 250 MG TAB PO SCH (16:00)
[2016-06-12 16:39] LABS: Glucose,Whole Blood 201 mg/dL (75-99)
[2016-06-12] MEDS: ATORVASTATIN 80 MG TAB PO SCH (21:16)
[2016-06-12] MEDS: SODIUM CHLORIDE 0.9% 1,000 ML IV SCH ×2 (21:18)
[2016-06-12 21:46] LABS: Glucose,Whole Blood 207 mg/dL (75-99)
[2016-06-13] MEDS: HYDROmorphone 1 MG/ML 1 ML SYRINGE IVP PRN ×4 (01:13→17:36)
[2016-06-13] MEDS: NITROGLYCERIN SL TABS 0.4 MG TAB SUBLINGUAL PRN ×2 (01:47→01:52)
[2016-06-13] MEDS: ALPRAZolam 0.5 MG TAB PO PRN ×4 (02:12→22:44)
[2016-06-13] MEDS: HYDROcodone/APAP 10-325MG 1 EACH TAB PO SCH ×4 (02:28→22:44)
[2016-06-13 07:01] LABS: Glucose,Whole Blood 63 mg/dL (75-99)
[2016-06-13 07:33] LABS: Glucose,Whole Blood 88 mg/dL (75-99)
[2016-06-13] MEDS: INSULIN LISPRO (humaLOG) 300 UNIT/3 ML VIAL SQ SCH ×4 (07:33→20:52)
[2016-06-13 09:50] LABS: Glucose,Whole Blood 195 mg/dL (75-99)
[2016-06-13] MEDS: INSULIN NPH/REG INSULIN 70/30 300 UNIT/3 ML VIAL SQ SCH ×2 (09:54→17:35)
[2016-06-13] MEDS: amLODIPine 5 MG TAB PO SCH ×2 (09:55→20:52)
[2016-06-13] MEDS: EZETIMIBE 10 MG TAB PO SCH (09:56)
[2016-06-13] MEDS: GABAPENTIN 300 MG CAP PO SCH (09:56)
[2016-06-13] MEDS: CILOSTAZOL 100 MG TAB PO SCH ×2 (09:56→20:52)
[2016-06-13] MEDS: CLOPIDOGREL 75 MG TAB PO SCH (09:56)
[2016-06-13] MEDS: FAMOTIDINE 20 MG TAB PO SCH (09:56)
[2016-06-13] MEDS: HEPARIN SODIUM,PORCINE 5,000 UNIT/ML 1 ML VIAL SQ SCH ×2 (09:57→20:52)
[2016-06-13] MEDS: METOPROLOL TARTRATE 50 MG TAB PO SCH ×3 (09:57→22:44)
[2016-06-13] MEDS: SERTRALINE 100 MG TAB PO SCH (09:57)
[2016-06-13] MEDS: NICOTINE 21MG/24HR PATCH TRANSDERM SCH ×2 (09:57→10:06)
[2016-06-13] MEDS: ISOSORBIDE MONONITRATE ER 60 MG TAB.ER.24H PO SCH (09:57)
[2016-06-13 10:10] LABS: CH 30.4; CHCM 31.2; HCT 28.8 % (34.0-46.0); HDW 2.45; HGB 9.2 gm/dL (11.4-16.0); Hypochromasia Slight; MCH 31.1 pg (25.0-35.0); MCHC 31.8 g/dL (31.0-37.0); MCV 97.7 fL (80.0-100.0); RBC 2.95 m/uL (3.80-5.40); RDW 13.6 % (11.5-15.5); WBC 11.2 k/uL (3.8-10.6)
[2016-06-13 10:31] LABS: Calcium 8.2 mg/dL (8.4-10.2); Potassium 5.7 mmol/L (3.5-5.1); Total Bilirubin 0.4 mg/dL (0.2-1.3); Total Protein 5.1 g/dL (6.3-8.2)
--- NOTE | 2016-06-13 10:53 | P.PN ---
Subjective Patient is seen in follow-up for acute kidney injury. Renal function is improving with creatinine down to 1.62 today. She has been voiding. Denies any vomiting or diarrhea. Appetite is good. Hemodynamically she stable. Vital signs are stable. General: The patient appeared well nourished and normally developed. HEENT: Head exam is unremarkable. Neck is without jugular venous distension. LUNGS: Lungs are clear to auscultation and percussion. Breath sounds decreased. HEART: Rate and Rhythm are regular. First and second heart sounds normal. No murmurs, rubs or gallops. ABDOMEN: Abdominal exam reveals normal bowel sounds. Non-tender and non- distended. No evidence of peritonitis. EXTREMITITES: No clubbing, cyanosis, or edema. Objective - Vital Signs Vital signs: Vital Signs Temp 97.8 F 06/13/16 07:00 Pulse 69 06/13/16 07:00 Resp 18 06/13/16 07:00 BP 146/67 06/13/16 07:00 Pulse Ox 95 06/13/16 07:28 Intake & Output 06/12/16 06/13/16 06/13/16 18:59 06:59 18:59 Intake Total 750 400 Balance 750 400 Intake: Oral 750 400 Other: Voiding Method Toilet # Voids 3 1 ABP, PAP, CO, CI - Last Documented Arterial Blood Pressure 119/52 - Labs CBC & Chem 7: 06/13/16 09:22 06/13/16 09:22 Labs: Abnormal Lab Results - Last 24 Hours (Table) 06/12/16 06/12/16 06/12/16 Range/Units 12:12 16:34 21:06 WBC (3.8-10.6) k/uL RBC (3.80-5.40) m/uL Hgb (11.4-16.0) gm/dL Hct (34.0-46.0) % Potassium (3.5-5.1) mmol/L Chloride (98-107) mmol/L Carbon Dioxide (22-30) mmol/L BUN (7-17) mg/dL Creatinine (0.52-1.04) mg/dL Glucose (74-99) mg/dL POC Glucose (mg/dL) 139 H 201 H 207 H (75-99) mg/dL Calcium (8.4-10.2) mg/dL Total Protein (6.3-8.2) g/dL Albumin (3.5-5.0) g/dL 06/13/16 06/13/16 06/13/16 Range/Units 06:59 09:22 09:22 WBC 11.2 H (3.8-10.6) k/uL RBC 2.95 L (3.80-5.40) m/uL Hgb 9.2 L (11.4-16.0) gm/dL Hct 28.8 L (34.0-46.0) % Potassium 5.7 H (3.5-5.1) mmol/L Chloride 112 H (98-107) mmol/L Carbon Dioxide 20 L (22-30) mmol/L BUN 44 H (7-17) mg/dL Creatinine 1.62 H (0.52-1.04) mg/dL Glucose 128 H (74-99) mg/dL POC Glucose (mg/dL) 63 L (75-99) mg/dL Calcium 8.2 L (8.4-10.2) mg/dL Total Protein 5.1 L (6.3-8.2) g/dL Albumin 2.7 L (3.5-5.0) g/dL 06/13/16 Range/Units 09:47 WBC (3.8-10.6) k/uL RBC (3.80-5.40) m/uL Hgb (11.4-16.0) gm/dL Hct (34.0-46.0) % Potassium (3.5-5.1) mmol/L Chloride (98-107) mmol/L Carbon Dioxide (22-30) mmol/L BUN (7-17) mg/dL Creatinine (0.52-1.04) mg/dL Glucose (74-99) mg/dL POC Glucose (mg/dL) 195 H (75-99) mg/dL Calcium (8.4-10.2) mg/dL Total Protein (6.3-8.2) g/dL Albumin (3.5-5.0) g/dL Assessment and Plan Plan: Assessment: #1. Nonoliguric acute kidney injury secondary to ATN secondary to contrast- induced nephropathy as well as aminoglycoside toxicity. Hemodynamic instability also a contributing factor. Her blood pressures have been quite labile with systolic blood pressure greater than 200 on June 05 and 97 on June 09. Baseline creatinine is 1. Renal function is improving with creatinine down to 1.6 today. 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 #2. Urinary tract infection with urine culture positive for Klebsiella. #3. Solitary right kidney. #4. 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 #5. Coronary artery disease status post cardiac catheterization on June 03 as well as June 07. #6. Anemia. Iron replete. #7. Insulin-dependent diabetes mellitus. #8. Hyperchloremic acidosis secondary to IV fluids and acute kidney injury. #9. Mild hyperkalemia secondary to metabolic acidosis and acute kidney injury. Plan: Maintain IV hydration with normal saline to be run at 50 mL an hour. Repeat urine eosinophils - significantly positive at 7%. I will start prednisone 60 mg daily. Will gradually taper. Avoid nephrotoxic agents and hypotensive episodes. To hold antihypertensives for systolic blood pressure less than 120. Quantify proteinuria once GFR returns to baseline. This can be done as an outpatient. Repeat electrolytes in the morning. Renal diet. Start oral sodium bicarbonate supplementation.
[2016-06-13] MEDS ORDERED: INSULIN REGULAR 100 UNIT/ML VIAL IV ONE (11:46)
[2016-06-13] MEDS ORDERED: DEXTROSE 50%-WATER 50 ML SYRINGE IVP STA (11:47)
[2016-06-13] MEDS: SODIUM BICARBONATE TAB 650 MG TAB PO SCH ×2 (12:01→20:52)
[2016-06-13] MEDS: predniSONE 20 MG TAB PO SCH (12:01)
[2016-06-13 12:29] LABS: Glucose,Whole Blood 130 mg/dL (75-99)
--- NOTE | 2016-06-13 12:56 | P.PN ---
Subjective No events overnight. Patient is complaining of acid reflux this morning. She said the Pepcid is not working. Objective - Vital Signs Vital signs: Vital Signs Temp 97.8 F 06/13/16 07:00 Pulse 69 06/13/16 07:00 Resp 18 06/13/16 07:00 BP 146/67 06/13/16 07:00 Pulse Ox 95 06/13/16 07:28 Intake & Output 06/12/16 06/13/16 06/13/16 18:59 06:59 18:59 Intake Total 750 400 Balance 750 400 Intake: Oral 750 400 Other: Voiding Method Toilet Toilet # Voids 3 1 ABP, PAP, CO, CI - Last Documented Arterial Blood Pressure 119/52 - Exam General: The patient is awake and alert, in no distress Eye: there is normal conjunctiva bilaterally. Neck: The neck is supple, there is no JVD. Cardiovascular: Normal S1-S2, no S3-S4, no murmurs. Respiratory: Lungs clear to auscultation bilaterally Gastrointestinal: Abdomen is soft, nontender Musculoskeletal: There is no pedal edema. Neurological:. Speech is normal. Skin: Skin is warm and dry - Labs CBC & Chem 7: 06/13/16 09:22 06/13/16 09:22 Labs: Abnormal Lab Results - Last 24 Hours (Table) 06/12/16 06/12/16 06/13/16 Range/Units 16:34 21:06 06:59 WBC (3.8-10.6) k/uL RBC (3.80-5.40) m/uL Hgb (11.4-16.0) gm/dL Hct (34.0-46.0) % Potassium (3.5-5.1) mmol/L Chloride (98-107) mmol/L Carbon Dioxide (22-30) mmol/L BUN (7-17) mg/dL Creatinine (0.52-1.04) mg/dL Glucose (74-99) mg/dL POC Glucose (mg/dL) 201 H 207 H 63 L (75-99) mg/dL Calcium (8.4-10.2) mg/dL Total Protein (6.3-8.2) g/dL Albumin (3.5-5.0) g/dL 06/13/16 06/13/16 06/13/16 Range/Units 09:22 09:22 09:47 WBC 11.2 H (3.8-10.6) k/uL RBC 2.95 L (3.80-5.40) m/uL Hgb 9.2 L (11.4-16.0) gm/dL Hct 28.8 L (34.0-46.0) % Potassium 5.7 H (3.5-5.1) mmol/L Chloride 112 H (98-107) mmol/L Carbon Dioxide 20 L (22-30) mmol/L BUN 44 H (7-17) mg/dL Creatinine 1.62 H (0.52-1.04) mg/dL Glucose 128 H (74-99) mg/dL POC Glucose (mg/dL) 195 H (75-99) mg/dL Calcium 8.2 L (8.4-10.2) mg/dL Total Protein 5.1 L (6.3-8.2) g/dL Albumin 2.7 L (3.5-5.0) g/dL 06/13/16 Range/Units 12:27 WBC (3.8-10.6) k/uL RBC (3.80-5.40) m/uL Hgb (11.4-16.0) gm/dL Hct (34.0-46.0) % Potassium (3.5-5.1) mmol/L Chloride (98-107) mmol/L Carbon Dioxide (22-30) mmol/L BUN (7-17) mg/dL Creatinine (0.52-1.04) mg/dL Glucose (74-99) mg/dL POC Glucose (mg/dL) 130 H (75-99) mg/dL Calcium (8.4-10.2) mg/dL Total Protein (6.3-8.2) g/dL Albumin (3.5-5.0) g/dL Assessment and Plan Plan: 1. Acute kidney injury with history of congenital solitary kidney: Possibly attributed to dehydration and tobramycin toxicity that was used on presentation for her underlying UTI. We will continue IV fluid hydration. Ultrasound of the kidney reviewed showing right-sided nephrolithiasis with no evidence of hydronephrosis. Absent left kidney Nephrology following closely. Started on prednisone with high suspicion for acute interstitial nephritis. Mood tapered slowly. 2. Episode of chest pain with EKG showing T-wave inversion. Patient was seen and evaluated by cardiology and underwent a left heart catheterization showing severe disease involving the RCA with no intervention recommended. Continue optimal medical management. Attempted FFR to LAD failed as the machine is not functioning. Cardiology following closely. 3. UTI with urine culture growing pansensitive susceptible Klebsiella. Currently on oral Levaquin with good tolerance. 4. Insulin-dependent diabetes mellitus type 2: Resume her NovoLog 70/30 and glipizide. Also add sliding scale coverage hemoglobin A1c 9.3 5. Nicotine dependence: Patient was counseled on smoking cessation for approximately 5 minutes. Add nicotine patch 6. Peripheral vascular disease with previous amputations of the toes 7. Previous history of myocardial infarction and coronary artery disease 8. Congenital solitary kidney with absent left kidney 9. GI prophylaxis. Patient is on Pepcid, DVT prophylaxis she is on subcu heparin Anticipate discharge home tomorrow. Patient refused to go to rehab. Her legal guardian was informed.
[2016-06-13 13:21] LABS: Glucose,Whole Blood 143 mg/dL (75-99)
[2016-06-13 16:42] LABS: Glucose,Whole Blood 193 mg/dL (75-99)
[2016-06-13] MEDS: SODIUM CHLORIDE 0.9% 1,000 ML IV SCH (18:57)
[2016-06-13] MEDS: ATORVASTATIN 80 MG TAB PO SCH (20:52)
[2016-06-13 20:53] LABS: Glucose,Whole Blood 334 mg/dL (75-99)
[2016-06-14] MEDS: HYDROmorphone 1 MG/ML 1 ML SYRINGE IVP PRN ×2 (01:54→08:51)
[2016-06-14 07:53] LABS: Glucose,Whole Blood 195 mg/dL (75-99)
[2016-06-14 07:57] VITALS: BP 186/78; PULSE 77; RESP 22; TEMP 97.2
[2016-06-14] MEDS: INSULIN LISPRO (humaLOG) 300 UNIT/3 ML VIAL SQ SCH ×2 (08:00→12:39)
[2016-06-14] MEDS: INSULIN NPH/REG INSULIN 70/30 300 UNIT/3 ML VIAL SQ SCH (08:00)
[2016-06-14] MEDS: GABAPENTIN 300 MG CAP PO SCH (08:53)
[2016-06-14] MEDS: CILOSTAZOL 100 MG TAB PO SCH (08:53)
[2016-06-14] MEDS: CLOPIDOGREL 75 MG TAB PO SCH (08:53)
[2016-06-14] MEDS: EZETIMIBE 10 MG TAB PO SCH (08:53)
[2016-06-14] MEDS: NICOTINE 21MG/24HR PATCH TRANSDERM SCH ×2 (08:53→09:05)
[2016-06-14] MEDS: FAMOTIDINE 20 MG TAB PO SCH (08:53)
[2016-06-14] MEDS: amLODIPine 5 MG TAB PO SCH (08:54)
[2016-06-14] MEDS: SODIUM BICARBONATE TAB 650 MG TAB PO SCH (08:54)
[2016-06-14] MEDS: ISOSORBIDE MONONITRATE ER 60 MG TAB.ER.24H PO SCH (08:54)
[2016-06-14] MEDS: predniSONE 20 MG TAB PO SCH (08:54)
[2016-06-14] MEDS: HEPARIN SODIUM,PORCINE 5,000 UNIT/ML 1 ML VIAL SQ SCH (08:54)
[2016-06-14] MEDS: METOPROLOL TARTRATE 50 MG TAB PO SCH (08:54)
[2016-06-14] MEDS: SERTRALINE 100 MG TAB PO SCH (08:55)
[2016-06-14] MEDS: ALPRAZolam 0.5 MG TAB PO PRN (09:07)
[2016-06-14 09:57] LABS: Potassium 5.6 mmol/L (3.5-5.1)
[2016-06-14] MEDS: HYDROcodone/APAP 10-325MG 1 EACH TAB PO SCH (10:15)
--- NOTE | 2016-06-14 11:37 | P.PN ---
Subjective Patient is seen in follow-up for acute kidney injury. Renal function is improving with creatinine down to 1.43 today. She has been voiding. Denies any vomiting or diarrhea. Appetite is good. Hemodynamically she is stable. Vital signs are stable. General: The patient appeared well nourished and normally developed. HEENT: Head exam is unremarkable. Neck is without jugular venous distension. LUNGS: Lungs are clear to auscultation and percussion. Breath sounds decreased. HEART: Rate and Rhythm are regular. First and second heart sounds normal. No murmurs, rubs or gallops. ABDOMEN: Abdominal exam reveals normal bowel sounds. Non-tender and non- distended. No evidence of peritonitis. EXTREMITITES: No clubbing, cyanosis, or edema. Objective - Vital Signs Vital signs: Vital Signs Temp 97.2 F L 06/14/16 07:00 Pulse 77 06/14/16 07:00 Resp 22 06/14/16 07:00 BP 186/78 06/14/16 07:00 Pulse Ox 90 L 06/14/16 07:00 Intake & Output 06/13/16 06/14/16 06/14/16 18:59 06:59 18:59 Intake Total 400 300 240 Balance 400 300 240 Intake: Intake, IV Titration 400 Amount Sodium Chloride 0.9% 1, 400 000 ml @ 50 mls/hr IV . Q20H [facility] Rx#:[id number] Oral 300 240 Other: Voiding Method Toilet Toilet # Voids 2 2 ABP, PAP, CO, CI - Last Documented Arterial Blood Pressure 119/52 - Labs CBC & Chem 7: 06/13/16 09:22 06/14/16 09:09 Labs: Abnormal Lab Results - Last 24 Hours (Table) 06/13/16 06/13/16 06/13/16 Range/Units 12:27 13:19 16:41 Potassium (3.5-5.1) mmol/L Chloride (98-107) mmol/L BUN (7-17) mg/dL Creatinine (0.52-1.04) mg/dL Glucose (74-99) mg/dL POC Glucose (mg/dL) 130 H 143 H 193 H (75-99) mg/dL 06/13/16 06/13/16 06/14/16 Range/Units 17:07 20:48 07:39 Potassium 5.7 H (3.5-5.1) mmol/L Chloride (98-107) mmol/L BUN (7-17) mg/dL Creatinine (0.52-1.04) mg/dL Glucose (74-99) mg/dL POC Glucose (mg/dL) 334 H 195 H (75-99) mg/dL 06/14/16 Range/Units 09:09 Potassium 5.6 H (3.5-5.1) mmol/L Chloride 111 H (98-107) mmol/L BUN 42 H (7-17) mg/dL Creatinine 1.43 H (0.52-1.04) mg/dL Glucose 193 H (74-99) mg/dL POC Glucose (mg/dL) (75-99) mg/dL Assessment and Plan Plan: Assessment: #1. Nonoliguric acute kidney injury secondary to ATN secondary to contrast- induced nephropathy as well as aminoglycoside toxicity. Hemodynamic instability also a contributing factor. Her blood pressures have been quite labile with systolic blood pressure greater than 200 on June 05 and 97 on June 09. Baseline creatinine is 1. Renal function is improving with creatinine down to 1.43 today. Her urine eosinophils were also positive suggestive of ALLERGIC interstitial nephritis which is due to tobramycin - repeat at 0%. #2. Urinary tract infection with urine culture positive for Klebsiella. #3. Solitary right kidney. #4. 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 #5. Coronary artery disease status post cardiac catheterization on June 03 as well as June 07. #6. Anemia. Iron replete. #7. Insulin-dependent diabetes mellitus. #8. Hyperchloremic acidosis secondary to IV fluids and acute kidney injury. #9. Mild hyperkalemia secondary to metabolic acidosis and acute kidney injury. Hyperglycemia also a contributing factor. Plan: Maintain IV hydration with normal saline to be run at 50 mL an hour. Discontinue prednisone. Avoid nephrotoxic agents and hypotensive episodes. To hold antihypertensives for systolic blood pressure less than 120. Quantify proteinuria once GFR returns to baseline. This can be done as an outpatient. Repeat electrolytes in the morning. Renal diet. Maintain oral sodium bicarbonate supplementation.
[2016-06-14] MEDS ORDERED: SODIUM POLYSTYRENE SULFONATE 15 GM/60 ML BOTTLE PO STA (11:43)
--- NOTE | 2016-06-14 11:52 | P.DS ---
Providers Date of admission: 06/02/16 20:22 Expected date of discharge: 06/14/16 Attending physician: Jenna Pereira Consults: 06/03/16 08:49 Consult Physician Stat Consulting Provider: Jagdeep Urbano Consult Reason/Comments: chest pain/ekg changes Do you want consulting provider notified?: Yes 06/07/16 16:09 Consult Physician Routine Consulting Provider: [facility] Consult Reason/Comments: Post Interventional patient Do you want consulting provider notified?: Already Contacted 06/09/16 11:58 Consult Physician Stat Consulting Provider: Elsa Vasquez Consult Reason/Comments: Renal Do you want consulting provider notified?: Yes Primary care physician: [facility] Course: 1. Acute kidney injury with history of congenital solitary kidney: Possibly attributed to dehydration and tobramycin toxicity that was used on presentation for her underlying UTI. Ultrasound of the kidney reviewed showing right-sided nephrolithiasis with no evidence of hydronephrosis. Absent left kidney Nephrology following closely. Started on prednisone with high suspicion for acute interstitial nephritis. Kidney function improved significantly. 2. Episode of chest pain with EKG showing T-wave inversion. Patient was seen and evaluated by cardiology and underwent a left heart catheterization showing severe disease involving the RCA with no intervention recommended. Continue optimal medical management. Attempted FFR to LAD failed as the machine is not functioning. 3. UTI with urine culture growing pansensitive susceptible Klebsiella. Finished antibiotic course with Levaquin 4. Insulin-dependent diabetes mellitus type 2: Resume her NovoLog 70/30 and glipizide. Also add sliding scale coverage hemoglobin A1c 9.3 5. Nicotine dependence: Patient was counseled on smoking cessation during this admission 6. Peripheral vascular disease with previous amputations of the toes 7. Previous history of myocardial infarction and coronary artery disease 8. Congenital solitary kidney with absent left kidney Patient Condition at Discharge: Fair Plan - Discharge Summary New Discharge Prescriptions: Insulin NPH/Reg Insulin 70/30 [humuLIN 70/30 VIAL] 28 unit SQ AC-BRKFST #3 vial Insulin NPH/Reg Insulin 70/30 [humuLIN 70/30 VIAL] 20 unit SQ AC-SUPPER #3 vial Isosorbide Mononitrate ER [Imdur] 60 mg PO DAILY #30 tab Metoprolol Tartrate [Lopressor] 50 mg PO BID #60 tab Nicotine 21Mg/24Hr Patch [Habitrol] 1 patch TRANSDERM DAILY #30 patch amLODIPine [Norvasc] 10 mg PO DAILY #30 tablet Discharge Medication List Albuterol Inhaler [Ventolin Hfa Inhaler] 2 puff INHALATION RT-Q6H PRN 06/02/16 [ History] Cilostazol [Pletal] 100 mg PO BID 06/02/16 [History] Clopidogrel [Plavix] 75 mg PO DAILY 06/02/16 [History] Ezetimibe [Zetia] 10 mg PO DAILY 06/02/16 [History] Famotidine [Pepcid] 20 mg PO BID 06/02/16 [History] Fluticasone Nasal [place] [Flonase Nasal [place]] 2 spr EA NOSTRIL DAILY PRN [History] Gabapentin 800 mg PO TID 06/02/16 [History] Hydrocodone/Acetaminophen [[place] 10-325] 1 tab PO TID 06/02/16 [History] Sertraline HCl [Zoloft] 100 mg PO DAILY 06/02/16 [History] oxyCODONE ER [OxyCONTIN] 15 mg PO DAILY PRN 06/02/16 [History] Insulin NPH/Reg Insulin 70/30 [humuLIN 70/30 VIAL] 20 unit SQ AC-SUPPER #3 vial 06/14/16 [Rx] Insulin NPH/Reg Insulin 70/30 [humuLIN 70/30 VIAL] 28 unit SQ AC-BRKFST #3 vial 06/14/16 [Rx] Isosorbide Mononitrate ER [Imdur] 60 mg PO DAILY #30 tab 06/14/16 [Rx] Metoprolol Tartrate [Lopressor] 50 mg PO BID #60 tab 06/14/16 [Rx] Nicotine 21Mg/24Hr Patch [Habitrol] 1 patch TRANSDERM DAILY #30 patch 06/14/16 [ Rx] amLODIPine [Norvasc] 10 mg PO DAILY #30 tablet 06/14/16 [Rx] Follow up Appointment(s)/Referral(s): Jagdeep Urbano MD [STAFF PHYSICIAN] - 1 Week Mallory Hernandez MD [Primary Care Provider] - 06/20/16 3:15 pm Discharge Disposition: HOME WITH HOME HEALTH SERVICES
[2016-06-14 12:16] LABS: Glucose,Whole Blood 204 mg/dL (75-99)
== END 2016-06-14 13:28 | disposition home health service (06) | DRG 871 ==
LOC: EC 16:16 → 4MS4W 20:22 → 6SEL 06-03 08:09 → 6ICU 06-07 16:31 → 6SEL 06-08 15:09 → 4MS4W 06-11 13:59
PROVIDERS: ADMIT Internal Medicine; ATTEND Internal Medicine
PROC: B2111ZZ Fluoroscopy of Multiple Coronary Arteries using Low Osmolar Contrast (ICD-10-PCS; principal; 2016-06-03 12:30)
PROC: 4A023N7 Measurement of Cardiac Sampling and Pressure, Left Heart, Percutaneous Approach (ICD-10-PCS; principal; 2016-06-03 12:30)
DX: A41.9 Sepsis, unspecified organism (principal); N17.0 Acute kidney failure with tubular necrosis; E87.2 Acidosis; N39.0 Urinary tract infection, site not specified; Q60.0 Renal agenesis, unilateral; N10 Acute pyelonephritis; E11.22 Type 2 diabetes mellitus with diabetic chronic kidney disease; E11.51 Type 2 diabetes mellitus with diabetic peripheral angiopathy without gangrene; D64.9 Anemia, unspecified; E11.65 Type 2 diabetes mellitus with hyperglycemia; E78.5 Hyperlipidemia, unspecified; E86.0 Dehydration; E87.5 Hyperkalemia; F17.200 Nicotine dependence, unspecified, uncomplicated; M54.5 Low back pain; M54.2 Cervicalgia; G89.29 Other chronic pain; I12.9 Hypertensive chronic kidney disease with stage 1 through stage 4 chronic kidney disease, or unspecified chronic kidney disease; I25.10 Atherosclerotic heart disease of native coronary artery without angina pectoris; I25.2 Old myocardial infarction; I45.10 Unspecified right bundle-branch block; J44.9 Chronic obstructive pulmonary disease, unspecified; J45.909 Unspecified asthma, uncomplicated; K21.9 Gastro-esophageal reflux disease without esophagitis; M19.90 Unspecified osteoarthritis, unspecified site; N14.1 Nephropathy induced by other drugs, medicaments and biological substances; N18.3 Chronic kidney disease, stage 3 (moderate); N20.0 Calculus of kidney; T50.8X5A Adverse effect of diagnostic agents, initial encounter; Z79.4 Long term (current) use of insulin; Z82.49 Family history of ischemic heart disease and other diseases of the circulatory system; Z86.718 Personal history of other venous thrombosis and embolism; Z86.73 Personal history of transient ischemic attack (TIA), and cerebral infarction without residual deficits; Z89.429 Acquired absence of other toe(s), unspecified side; Z79.899 Other long term (current) drug therapy; Z79.02 Long term (current) use of antithrombotics/antiplatelets; Z88.0 Allergy status to penicillin; Z88.2 Allergy status to sulfonamides; Z88.4 Allergy status to anesthetic agent; Z91.041 Radiographic dye allergy status
CPT/HCPCS: 36415; 71010; 74176; 76770; 80048; 80053; 80200; 81001; 82550; 82553; 82728; 83036; 83540; 83550; 83605; 83735; 84132; 84484; 85025; 85027; 87040; 87077; 87086; 87186; 87205; 93005; 93306; 93454; 94760; 96365; 96367; 96375; 99285

== ENCOUNTER 2016-06-17 12:04 | Inpatient (IN) | payer MEDICARE, OTHER ==
[2016-06-17 13:10] LABS: Basophils % (A) 0 %; CH 31.2; CHCM 32.9; Eosinophils # (A) 0.2 k/uL (0-0.7); Eosinophils % (A) 2 %; HCT 33.6 % (34.0-46.0); HDW 2.54; HGB 10.8 gm/dL (11.4-16.0); Luc # (Auto) 0.11; Luc % (Auto) 1; Lymphocytes # (A) 1.1 k/uL (1.0-4.8); Lymphocytes % (A) 10 %; MCH 30.7 pg (25.0-35.0); MCHC 32.2 g/dL (31.0-37.0); MCV 95.2 fL (80.0-100.0); Mean Platelet Volume 6.7; Monocytes # (A) 0.6 k/uL (0-1.0); Monocytes % (A) 6 %; Neutrophils # (A) 8.4 k/uL (1.3-7.7); Neutrophils % (A) 80 %; RBC 3.53 m/uL (3.80-5.40); RDW 14.5 % (11.5-15.5); WBC 10.5 k/uL (3.8-10.6); WBC (Perox) 10.83
[2016-06-17 13:10] LABS: Appearance,Urine Clear (Clear); Bilirubin,Urine Negative (Negative); Glucose,Urine (UA) 1+ (Negative); Ketones,Urine Negative (Negative); Leukocyte Esterase,Urine Negative (Negative); Nitrite,Urine Negative (Negative); PH, Urine 7.5 (5.0-8.0); Particle Count 1061; Protein,Urine 2+ (Negative); RBC,Urine 1 /hpf (0-5); Specific Gravity,Urine 1.007 (1.001-1.035); Squamous Epithelial Cell,Urine 1 /hpf (0-4); UA Billing (MACRO vs. MICRO) MICRO; Urobilinogen,Urine <2.0 mg/dL (<2.0); WBC,Urine 5 /hpf (0-5)
[2016-06-17 13:14] LABS: INR 1.1 (<1.1); Partial Thromboplastin Time 22.3 sec (22.0-30.0); Prothrombin Time 10.9 sec (9.0-12.0)
[2016-06-17 13:21] LABS: Calcium 9.2 mg/dL (8.4-10.2); Potassium 5.4 mmol/L (3.5-5.1); Total Bilirubin 0.6 mg/dL (0.2-1.3); Total Protein 6.3 g/dL (6.3-8.2)
--- NOTE | 2016-06-17 13:36 | XR ---
EXAMINATION TYPE: XR chest 1V portable DATE OF EXAM: 06/17/2016 1:17 PM Comparison: 06/02/2016 Clinical History: 70-year-old female with cough, congestion, fever Findings: Heart is upper limits of normal in size. Similar elongation of the thoracic aorta. Some mild scattere d peribronchial cuffing. No consolidation or pleural effusion. Impression: Mild scattered peribronchial cuffing appears in part chronic. Correlate for possible bronchitis or ch ronic asthma.
[2016-06-17 13:53] LABS: Creatine Kinase MB 1.2 ng/mL (0.0-2.4)
[2016-06-17 14:00] LABS: Troponin I 0.095 ng/mL (0.000-0.034)
[2016-06-17] MEDS ORDERED: HYDROcodone/APAP 10-325MG 1 EACH TAB PO ONE (15:47)
[2016-06-17] MEDS: HYDROmorphone 1 MG/ML 1 ML SYRINGE IVP STA ×2 (16:02→18:54)
[2016-06-17] MEDS ORDERED: ENOXAPARIN 60 MG/0.6 ML SYRINGE SQ STA (16:04)
[2016-06-17] MEDS ORDERED: NITROGLYCERIN SL TABS 0.4 MG TAB SUBLINGUAL PRN (16:04)
--- NOTE | 2016-06-17 16:09 | ED ---
SOB HPI - General Chief Complaint: Shortness of Breath Stated Complaint: SOB Time Seen by Provider: 06/17/16 12:12 Source: patient, EMS Mode of arrival: EMS Limitations: no limitations - History of Present Illness MD Complaint: shortness of breath, chest pain Onset/Timin -: days(s) Severity: moderate Quality: aching Consistency: constant Improves With: nothing Worsens With: nothing - Related Data Home Medications Medication Instructions Recorded Confirmed Albuterol Inhaler [Ventolin Hfa 2 puff INHALATION RT-Q6H PRN 06/02/16 06/17/16 Inhaler] Cilostazol [Pletal] 100 mg PO BID 06/02/16 06/17/16 Clopidogrel [Plavix] 75 mg PO DAILY 06/02/16 06/17/16 Ezetimibe [Zetia] 10 mg PO DAILY 06/02/16 06/17/16 Fluticasone Nasal [place] [Flonase 2 spr EA NOSTRIL DAILY PRN 06/02/16 06/17/16 Nasal [place]] Gabapentin 800 mg PO TID 06/02/16 06/17/16 Hydrocodone/Acetaminophen [[place] 1 tab PO TID 06/02/16 06/17/16 10-325] Sertraline HCl [Zoloft] 100 mg PO DAILY 06/02/16 06/17/16 oxyCODONE ER [OxyCONTIN] 15 mg PO DAILY PRN 06/02/16 06/17/16 Previous Rx's Medication Instructions Recorded Insulin NPH/Reg Insulin 70/30 20 unit SQ AC-SUPPER #3 vial 06/14/16 [humuLIN 70/30 VIAL] Insulin NPH/Reg Insulin 70/30 28 unit SQ AC-BRKFST #3 vial 06/14/16 [humuLIN 70/30 VIAL] Isosorbide Mononitrate ER [Imdur] 60 mg PO DAILY #30 tab 06/14/16 Metoprolol Tartrate [Lopressor] 50 mg PO BID #60 tab 06/14/16 amLODIPine [Norvasc] 10 mg PO DAILY #30 tablet 06/14/16 Allergies Allergy/AdvReac Type Severity Reaction Status Date / Time Iodinated Contrast Media - Allergy Severe Anaphylaxis Verified 06/17/16 13:17 Oral and [Iodinated Contrast Media - IV Dye] Iodine and Iodide Containing Allergy Severe Rash/Hives/ Verified 06/17/16 13:17 Produc Swelling nitrofurantoin Allergy Severe Anaphylaxis Verified 06/17/16 13:17 [From Macrobid] aspirin Allergy Rash/Hives Verified 06/17/16 13:17 cephalexin monohydrate Allergy Swelling Verified 06/17/16 13:17 [From Keflex] ciprofloxacin Allergy Unknown Verified 06/17/16 13:17 Penicillins Allergy Swelling Verified 06/17/16 13:17 Sulfa (Sulfonamide Allergy Rash/Hives Verified 06/17/16 13:17 Antibiotics) Review of Systems ROS Statement: Those systems with pertinent positive or pertinent negative responses have been documented in the HPI. ROS Other: All systems not noted in ROS Statement are negative. Constitutional: Reports: weakness. Denies: fever, chills Respiratory: Reports: dyspnea. Denies: cough, wheezes Cardiovascular: Reports: chest pain. Denies: palpitations, edema, syncope Gastrointestinal: Denies: abdominal pain, vomiting, diarrhea Genitourinary: Denies: dysuria, hematuria Musculoskeletal: Denies: back pain Skin: Denies: rash Neurological: Denies: headache, weakness, numbness Past Medical History Past Medical History: Asthma, Coronary Artery Disease (CAD), Chest Pain / Angina , COPD, CVA/TIA, Diabetes Mellitus, Deep Vein Thrombosis (DVT), Hyperlipidemia, Hypertension, Myocardial Infarction ([place]), Osteoarthritis (OA), Pneumonia, Renal Disease Additional Past Medical History / Comment(s): pt states she has one kidney, heart murmur, trouble staying asleep, hemroids, claustrophobic Last Myocardial Infarction Date:: around 2008 History of Any Multi-Drug Resistant Organisms: None Reported Past Surgical History: Appendectomy, Hysterectomy Additional Past Surgical History / Comment(s): lt femoral-pop bypass and amputation. Mar 2014. Amputation 2nd, 3rd, 4th toe Past Anesthesia/Blood Transfusion Reactions: No Reported Reaction Past Psychological History: Anxiety, Depression Additional Psychological History / Comment(s): pt stated has some mild depression d/t medical problems but not hopelss-denies any thoughts of harming self or others, no suicidal ideations.stated recent moved to a new [facility] that has no w/c ramp so she can't use her wheel chair. does use a cane and stated has had some falls. Smoking Status: Former smoker Past Alcohol Use History: None Reported Additional Past Alcohol Use History / Comment(s): Patient is a smoker of 2 packs per day for 55 years stated she quit officially 4 days ago. She denies any medical marijuana, marijuana, street drug use. She denies any alcohol use or abuse. She has been on disability for long period of time. She is currently living alone. Past Drug Use History: None Reported - Past Family History Mother Family Medical History: Cancer, Diabetes Mellitus, Myocardial Infarction ([place]) Additional Family Medical History / Comment(s): from aortic anurysm Father Family Medical History: Renal Disease General Exam Limitations: no limitations General appearance: alert, in no apparent distress Head exam: Present: atraumatic, normocephalic Eye exam: Present: normal appearance. Absent: scleral icterus, conjunctival injection ENT exam: Present: normal oropharynx Neck exam: Present: normal inspection Respiratory exam: Present: normal lung sounds bilaterally. Absent: respiratory distress, wheezes, rales, rhonchi Cardiovascular Exam: Present: regular rate, normal rhythm, normal heart sounds. Absent: systolic murmur, diastolic murmur, rubs, gallop GI/Abdominal exam: Present: soft. Absent: distended, tenderness, guarding, rebound Extremities exam: Present: normal inspection, normal capillary refill. Absent: pedal edema, calf tenderness Back exam: Absent: CVA tenderness (R), CVA tenderness (L) Neurological exam: Present: alert Skin exam: Present: warm, dry, intact, normal color. Absent: rash Course Vital Signs 06/17/16 06/17/16 06/17/16 12:15 12:30 12:45 Temperature 100.9 F H Pulse Rate 107 H Pulse Rate [ Apical] Pulse Rate [ Right Pulse Oximetery] Pulse Rate [ 110 H 99 Supine] Respiratory 32 H 30 H 28 H Rate Blood Pressure 200/90 Blood Pressure 179/78 168/81 [Right Arm] O2 Sat by Pulse 94 L 96 Oximetry 06/17/16 06/17/16 06/17/16 13:30 14:34 16:05 Temperature 98.7 F Pulse Rate 100 81 83 Pulse Rate [ 100 Apical] Pulse Rate [ Right Pulse Oximetery] Pulse Rate [ Supine] Respiratory 17 18 22 Rate Blood Pressure 175/97 163/77 182/83 Blood Pressure [Right Arm] O2 Sat by Pulse 95 97 97 Oximetry 06/17/16 06/17/16 17:32 17:55 Temperature 97.6 F 98.1 F Pulse Rate 81 Pulse Rate [ Apical] Pulse Rate [ 83 Right Pulse Oximetery] Pulse Rate [ Supine] Respiratory 20 20 Rate Blood Pressure 185/93 Blood Pressure 225/102 [Right Arm] O2 Sat by Pulse 95 100 Oximetry Medical Decision Making - Lab Data Result diagrams: 06/17/16 12:15 06/17/16 12:15 Lab Results 06/17/16 06/17/16 06/17/16 Range/Units 12:15 12:15 12:15 WBC 10.5 (3.8-10.6) k/uL RBC 3.53 L (3.80-5.40) m/uL Hgb 10.8 L (11.4-16.0) gm/dL Hct 33.6 L (34.0-46.0) % MCV 95.2 (80.0-100.0) fL MCH 30.7 (25.0-35.0) pg MCHC 32.2 (31.0-37.0) g/dL RDW 14.5 (11.5-15.5) % Plt Count 354 (150-450) k/uL Neutrophils % 80 % Lymphocytes % 10 % Monocytes % 6 % Eosinophils % 2 % Basophils % 0 % Neutrophils # 8.4 H (1.3-7.7) k/uL Lymphocytes # 1.1 (1.0-4.8) k/uL Monocytes # 0.6 (0-1.0) k/uL Eosinophils # 0.2 (0-0.7) k/uL Basophils # 0.0 (0-0.2) k/uL PT (9.0-12.0) sec INR (<1.1) APTT (22.0-30.0) sec Sodium 140 (137-145) mmol/L Potassium 5.4 H (3.5-5.1) mmol/L Chloride 106 (98-107) mmol/L Carbon Dioxide 23 (22-30) mmol/L Anion Gap 11 mmol/L BUN 22 H (7-17) mg/dL Creatinine 1.10 H (0.52-1.04) mg/dL Est GFR (MDRD) Af Amer 59 (>60 ml/min/1.73 sqM) Est GFR (MDRD) Non-Af 49 (>60 ml/min/1.73 sqM) Glucose 237 H (74-99) mg/dL Plasma Lactic Acid Hector (0.7-2.0) mmol/L Calcium 9.2 (8.4-10.2) mg/dL Total Bilirubin 0.6 (0.2-1.3) mg/dL AST 18 (14-36) U/L ALT 34 (9-52) U/L Alkaline Phosphatase 87 (38-126) U/L Total Creatine Kinase 79 (30-135) U/L CK-MB (CK-2) 1.2 (0.0-2.4) ng/mL CK-MB (CK-2) Rel Index 1.5 Troponin I 0.095 H* (0.000-0.034) ng/mL Total Protein 6.3 (6.3-8.2) g/dL Albumin 3.5 (3.5-5.0) g/dL Cortisol 28 ug/dL Urine Color Urine Appearance (Clear) Urine pH (5.0-8.0) Ur Specific [place] (1.001-1.035) Urine Protein (Negative) Urine Glucose (UA) (Negative) Urine Ketones (Negative) Urine Blood (Negative) Urine Nitrate (Negative) Urine Bilirubin (Negative) Urine Urobilinogen (<2.0) mg/dL Ur Leukocyte Esterase (Negative) Urine RBC (0-5) /hpf Urine WBC (0-5) /hpf Ur Squamous Epith Cells (0-4) /hpf 06/17/16 06/17/16 06/17/16 Range/Units 12:15 12:15 12:51 WBC (3.8-10.6) k/uL RBC (3.80-5.40) m/uL Hgb (11.4-16.0) gm/dL Hct (34.0-46.0) % MCV (80.0-100.0) fL MCH (25.0-35.0) pg MCHC (31.0-37.0) g/dL RDW (11.5-15.5) % Plt Count (150-450) k/uL Neutrophils % % Lymphocytes % % Monocytes % % Eosinophils % % Basophils % % Neutrophils # (1.3-7.7) k/uL Lymphocytes # (1.0-4.8) k/uL Monocytes # (0-1.0) k/uL Eosinophils # (0-0.7) k/uL Basophils # (0-0.2) k/uL PT 10.9 (9.0-12.0) sec INR 1.1 (<1.1) APTT 22.3 (22.0-30.0) sec Sodium (137-145) mmol/L Potassium (3.5-5.1) mmol/L Chloride (98-107) mmol/L Carbon Dioxide (22-30) mmol/L Anion Gap mmol/L BUN (7-17) mg/dL Creatinine (0.52-1.04) mg/dL Est GFR (MDRD) Af Amer (>60 ml/min/1.73 sqM) Est GFR (MDRD) Non-Af (>60 ml/min/1.73 sqM) Glucose (74-99) mg/dL Plasma Lactic Acid Hector 1.0 (0.7-2.0) mmol/L Calcium (8.4-10.2) mg/dL Total Bilirubin (0.2-1.3) mg/dL AST (14-36) U/L ALT (9-52) U/L Alkaline Phosphatase (38-126) U/L Total Creatine Kinase (30-135) U/L CK-MB (CK-2) (0.0-2.4) ng/mL CK-MB (CK-2) Rel Index Troponin I (0.000-0.034) ng/mL Total Protein (6.3-8.2) g/dL Albumin (3.5-5.0) g/dL Cortisol ug/dL Urine Color Light Yellow Urine Appearance Clear (Clear) Urine pH 7.5 (5.0-8.0) Ur Specific [place] 1.007 (1.001-1.035) Urine Protein 2+ H (Negative) Urine Glucose (UA) 1+ H (Negative) Urine Ketones Negative (Negative) Urine Blood Small H (Negative) Urine Nitrate Negative (Negative) Urine Bilirubin Negative (Negative) Urine Urobilinogen <2.0 (<2.0) mg/dL Ur Leukocyte Esterase Negative (Negative) Urine RBC 1 (0-5) /hpf Urine WBC 5 (0-5) /hpf Ur Squamous Epith Cells 1 (0-4) /hpf - EKG Data -: EKG Interpreted by Me EKG shows normal: sinus rhythm, axis (Normal), QRS complexes (Right bundle- branch block) Rate: tachycardia (Rate 1:15 beats p.m.) Disposition Clinical Impression: Chest pain, Elevated troponin I level Disposition: HOME SELF-CARE Condition: Fair
[2016-06-17 17:31] LABS: Creatine Kinase MB 1.7 ng/mL (0.0-2.4)
[2016-06-17 17:32] LABS: Troponin I 0.098 ng/mL (0.000-0.034)
[2016-06-17] MEDS ORDERED: oxyCODONE ER 15 MG TAB.ER.12H PO PRN (18:37)
[2016-06-17] MEDS ORDERED: HYDROmorphone 1 MG/ML 1 ML SYRINGE IVP PRN ×2 (18:40→18:55)
[2016-06-17] MEDS: hydrALAZINE HCL 20 MG/ML 1 ML VIAL IVP PRN ×2 (18:53→23:14)
[2016-06-17] MEDS: HYDROcodone/APAP 10-325MG 1 EACH TAB PO PRN (19:54)
[2016-06-17] MEDS: amLODIPine 10 MG TAB PO SCH (19:55)
[2016-06-17] MEDS: ISOSORBIDE MONONITRATE ER 60 MG TAB.ER.24H PO SCH (19:55)
[2016-06-17] MEDS: ONDANSETRON 4 MG/2 ML VIAL IVP PRN (20:52)
[2016-06-17 20:54] LABS: Glucose,Whole Blood 230 mg/dL (75-99)
[2016-06-17] MEDS: HYDROmorphone 1 MG/ML 1 ML SYRINGE IVP PRN (21:53)
[2016-06-17] MEDS: METOPROLOL TARTRATE 50 MG TAB PO SCH (22:38)
[2016-06-17] MEDS: GABAPENTIN 400 MG CAP PO SCH (22:38)
[2016-06-17] MEDS: CILOSTAZOL 100 MG TAB PO SCH (22:38)
[2016-06-18] MEDS: ALBUTEROL NEBULIZED 2.5 MG/3 ML INHALATION PRN ×2 (01:02→08:53)
[2016-06-18 01:13] LABS: Creatine Kinase MB 2.6 ng/mL (0.0-2.4); Troponin I 0.091 ng/mL (0.000-0.034)
[2016-06-18] MEDS: HYDROmorphone 1 MG/ML 1 ML SYRINGE IVP PRN ×5 (01:35→17:01)
[2016-06-18] MEDS: MORPHINE SULFATE 2 MG/ML SYRINGE IVP PRN (02:46)
[2016-06-18] MEDS: ONDANSETRON 4 MG/2 ML VIAL IVP PRN (03:44)
[2016-06-18 06:41] LABS: Glucose,Whole Blood 199 mg/dL (75-99)
[2016-06-18] MEDS: CILOSTAZOL 100 MG TAB PO SCH ×2 (08:47→22:27)
[2016-06-18] MEDS: CLOPIDOGREL 75 MG TAB PO SCH (08:47)
[2016-06-18] MEDS: amLODIPine 10 MG TAB PO SCH (08:48)
[2016-06-18] MEDS: EZETIMIBE 10 MG TAB PO SCH (08:48)
[2016-06-18] MEDS: ISOSORBIDE MONONITRATE ER 60 MG TAB.ER.24H PO SCH (08:48)
[2016-06-18] MEDS: GABAPENTIN 400 MG CAP PO SCH ×3 (08:48→22:26)
[2016-06-18] MEDS: SERTRALINE 100 MG TAB PO SCH (08:50)
[2016-06-18] MEDS: METOPROLOL TARTRATE 50 MG TAB PO SCH ×2 (08:50→22:27)
[2016-06-18 08:51] LABS: Cholesterol 157 mg/dL (<200); HDL Cholesterol 62 mg/dL (40-60); Triglycerides 250 mg/dL (<150)
[2016-06-18] MEDS: INSULIN NPH/REG INSULIN 70/30 300 UNIT/3 ML VIAL SQ SCH ×2 (08:54→17:20)
--- NOTE | 2016-06-18 11:22 | P.CRDCN ---
History of Present Illness Consult date: 06/18/16 Reason for Consult (text): atypical chest pain, elevated troponin Chief complaint: shortness of breath, cough, nausea, vomiting, diarrhea History of present illness: This is a 70-year-old female patient with a known history of diabetes , peripheral vascular disease, CVA, COPD, hyperlipidemia, prior [place], and recent cardiac cath that showed severe disease involving the distal RCA with a long tubular lesion as well as intermediate disease involving the proximal LAD and first OM branch of the left circumflex. She presented to the emergency department with complaints of shortness of breath as well as a cough with fever. She also had complaints of nausea with vomiting and diarrhea. Upon presentation she was found to be quite hypertensive. Laboratory values showed a potassium of 5.4, BUN 22, creatinine 1.1 and troponin levels of 0.095, 0.098 and 0.091. Chest x-ray showed possible bronchitis or chronic asthma. Is coughing up purulent sputum, according to the patient. EKG showed and his tachycardia with a right bundle branch block. On examination this morning, patient is resting in bed with continued complaints of harsh cough with sputum production as well as nausea with vomiting and diarrhea. Her blood pressure remains elevated. Past Medical History Past Medical History: Asthma, Coronary Artery Disease (CAD), Chest Pain / Angina , COPD, CVA/TIA, Diabetes Mellitus, Deep Vein Thrombosis (DVT), Hyperlipidemia, Hypertension, Myocardial Infarction ([place]), Osteoarthritis (OA), Pneumonia, Renal Disease Additional Past Medical History / Comment(s): pt states she has one kidney, heart murmur, trouble staying asleep, hemroids, claustrophobic Last Myocardial Infarction Date:: around 2008 History of Any Multi-Drug Resistant Organisms: None Reported Past Surgical History: Appendectomy, Hysterectomy Additional Past Surgical History / Comment(s): lt femoral-pop bypass and amputation. Mar 2014. Amputation 2nd, 3rd, 4th toe Past Anesthesia/Blood Transfusion Reactions: No Reported Reaction Past Psychological History: Anxiety, Depression Additional Psychological History / Comment(s): pt stated has some mild depression d/t medical problems but not hopelss-denies any thoughts of harming self or others, no suicidal ideations.stated recent moved to a new apt that has no w/c ramp so she can't use her wheel chair. does use a cane and stated has had some falls. Smoking Status: Former smoker Past Alcohol Use History: None Reported Additional Past Alcohol Use History / Comment(s): Patient is a smoker of 2 packs per day for 55 years stated she quit officially 4 days ago. She denies any medical marijuana, marijuana, street drug use. She denies any alcohol use or abuse. She has been on disability for long period of time. She is currently living alone. Past Drug Use History: None Reported - Past Family History Mother Family Medical History: Cancer, Diabetes Mellitus, Myocardial Infarction ([place]) Additional Family Medical History / Comment(s): from aortic anurysm Father Family Medical History: Renal Disease Medications and Allergies Home Medications Medication Instructions Recorded Confirmed Type Albuterol Inhaler [Ventolin Hfa 2 puff INHALATION RT-Q6H PRN 06/02/16 06/17/16 History Inhaler] Cilostazol [Pletal] 100 mg PO BID 06/02/16 06/17/16 History Clopidogrel [Plavix] 75 mg PO DAILY 06/02/16 06/17/16 History Ezetimibe [Zetia] 10 mg PO DAILY 06/02/16 06/17/16 History Fluticasone Nasal [place] [Flonase 2 spr EA NOSTRIL DAILY PRN 06/02/16 06/17/16 History Nasal [place]] Gabapentin 800 mg PO TID 06/02/16 06/17/16 History Hydrocodone/Acetaminophen [[place] 1 tab PO TID 06/02/16 06/17/16 History 10-325] Sertraline HCl [Zoloft] 100 mg PO DAILY 06/02/16 06/17/16 History oxyCODONE ER [OxyCONTIN] 15 mg PO DAILY PRN 06/02/16 06/17/16 History Allergies Allergy/AdvReac Type Severity Reaction Status Date / Time Iodinated Contrast Media - Allergy Severe Anaphylaxis Verified 06/17/16 13:17 Oral and [Iodinated Contrast Media - IV Dye] Iodine and Iodide Containing Allergy Severe Rash/Hives/ Verified 06/17/16 13:17 Produc Swelling nitrofurantoin Allergy Severe Anaphylaxis Verified 06/17/16 13:17 [From Macrobid] aspirin Allergy Rash/Hives Verified 06/17/16 13:17 cephalexin monohydrate Allergy Swelling Verified 06/17/16 13:17 [From Keflex] ciprofloxacin Allergy Unknown Verified 06/17/16 13:17 Penicillins Allergy Swelling Verified 06/17/16 13:17 Sulfa (Sulfonamide Allergy Rash/Hives Verified 06/17/16 13:17 Antibiotics) Physical Exam Vitals: Vital Signs Temp Pulse Pulse Pulse Pulse Resp BP 06/18/16 09:05 100 06/18/16 08:53 100 06/18/16 08:00 95 96 99 18 06/18/16 04:00 99.2 F 105 H 18 06/18/16 01:15 92 06/18/16 01:02 100 06/18/16 00:00 99.5 F 107 H 18 06/17/16 20:00 99.0 F 88 18 06/17/16 17:55 98.1 F 83 20 06/17/16 17:32 97.6 F 81 20 185/93 06/17/16 16:05 83 22 182/83 BP Pulse Ox 06/18/16 09:05 06/18/16 08:53 06/18/16 08:00 180/79 96 06/18/16 04:00 197/90 95 06/18/16 01:15 06/18/16 01:02 06/18/16 00:00 213/82 97 06/17/16 20:00 211/95 93 L 06/17/16 17:55 225/102 100 06/17/16 17:32 95 06/17/16 16:05 97 Intake and Output 06/17/16 06/18/16 06/18/16 22:59 06:59 14:59 Intake Total 200 300 Output Total 600 700 Balance -600 -500 300 Intake: Oral 200 300 Output: Urine 600 700 Other: Voiding Method Toilet Toilet Toilet # Voids 1 1 Weight 64.864 kg 71.5 kg PHYSICAL EXAMINATION: HEENT: Head is atraumatic, normocephalic. Pupils equal, round. Neck is supple. There is no elevated jugular venous pressure. HEART EXAMINATION: Heart sounds regular, S1 and S2 normal. No murmur or gallop heard. CHEST EXAMINATION: Lungs with severe wheezing and scattered rhonchi. No chest wall tenderness is noted on palpation or with deep breathing. ABDOMEN: Soft, nontender. Bowel sounds are heard. No organomegaly noted. EXTREMITIES: Menest peripheral pulses with evidence of trace peripheral edema and no calf tenderness noted. NEUROLOGIC patient is awake, alert and oriented x3. . Results 06/17/16 12:15 06/17/16 12:15 Cardiac Enzymes 06/17/16 06/18/16 Range/Units 16:38 00:06 CK-MB (CK-2) 1.7 2.6 H* (0.0-2.4) ng/mL Troponin I 0.098 H* 0.091 H* (0.000-0.034) ng/mL Lipids 06/18/16 Range/Units 07:46 Triglycerides 250 H (<150) mg/dL Cholesterol 157 (<200) mg/dL HDL Cholesterol 62 H (40-60) mg/dL Current Medications Generic Name Dose Route Start Last Admin Trade Name Freq PRN Reason Stop Dose Admin Acetaminophen/Hydrocodone Bitart 1 each 06/17/16 18:37 06/17/16 19:54 [place] 10 PO 1 each TID PRN Administration Moderate Pain Albuterol Sulfate 2.5 mg 06/17/16 18:37 06/18/16 08:53 Ventolin Nebulized INHALATION 2.5 mg RT-Q6H PRN Administration Shortness Of Breath Amlodipine Besylate 10 mg 06/17/16 18:45 06/18/16 08:48 Norvasc PO 10 mg DAILY VINH Administration Atorvastatin Calcium 40 mg 06/18/16 21:00 Lipitor PO HS VINH Cilostazol 100 mg 06/17/16 21:00 06/18/16 08:47 Pletal PO 100 mg BID VINH Administration Clopidogrel Bisulfate 75 mg 06/18/16 09:00 06/18/16 08:47 Plavix PO 75 mg DAILY VINH Administration Ezetimibe 10 mg 06/18/16 09:00 06/18/16 08:48 Zetia PO 10 mg DAILY VINH Administration Fluticasone Propionate 2 spray 06/17/16 18:37 Flonase Nasal [place] EA NOSTRIL DAILY PRN Allergy Symptoms Gabapentin 800 mg 06/17/16 22:00 06/18/16 08:48 Neurontin PO 800 mg TID VINH Administration Hydralazine HCl 10 mg 06/17/16 18:41 06/17/16 23:14 Apresoline IVP 10 mg Q6HR PRN Administration Blood Pressure - High Hydralazine HCl 50 mg 06/18/16 16:00 Apresoline PO TID [facility] Hydromorphone HCl 1 mg 06/17/16 20:37 06/18/16 09:50 Dilaudid IVP 1 mg Q3HR PRN Administration Pain Scale 6 to 7 Insulin Human Isoph/Insulin Regular 20 unit 06/18/16 17:30 Humulin 70/30 Vial SQ AC-SUPPER VINH Insulin Human Isoph/Insulin Regular 28 unit 06/18/16 07:30 06/18/16 08:54 Humulin 70/30 Vial SQ 28 unit AC-BRKFST [facility] Administration Isosorbide Mononitrate 60 mg 06/17/16 18:39 06/18/16 08:48 Imdur PO 60 mg DAILY [facility] Administration Metoprolol Tartrate 50 mg 06/17/16 21:00 06/18/16 08:50 Lopressor PO 50 mg BID [facility] Administration Morphine Sulfate 2 mg 06/17/16 23:46 06/18/16 02:46 Morphine Sulfate (Inj) IVP 2 mg Q3H PRN Administration Pain Scale 8 to 10 Nitroglycerin 0.4 mg 06/17/16 16:04 Nitrostat SUBLINGUAL Q5M PRN Chest Pain Ondansetron HCl 4 mg 06/17/16 20:37 06/18/16 03:44 Zofran IVP 4 mg Q6HR PRN Administration Nausea And Vomiting Oxycodone HCl 15 mg 06/17/16 18:37 Oxycontin 15mg E.R. PO DAILY PRN Severe Pain Sertraline HCl 100 mg 06/18/16 09:00 06/18/16 08:50 Zoloft PO 100 mg DAILY [facility] Administration Intake and Output 06/17/16 06/18/16 06/18/16 22:59 06:59 14:59 Intake Total 200 300 Output Total 600 700 Balance -600 -500 300 Intake: Oral 200 300 Output: Urine 600 700 Other: Voiding Method Toilet Toilet Toilet # Voids 1 1 Weight 64.864 kg 71.5 kg Assessment and Plan Plan: Assessment and plan #1 shortness of breath with cough and fever, bronchitis versus pneumonia #2 hypertension, uncontrolled #3 previous smoker #4 diabetes #5 elevated troponins From cardiac standpoint, we will maximize medical therapy. We will add hydralazine 50 mg 3 times a day for better blood pressure control. We'll start the patient on Lipitor 40 mg by mouth daily at bedtime. We will continue to follow the patient and provide further recommendations accordingly. STABLE MANAGER note has been reviewed, I agree with a documented findings and plan of care. Patient was seen and examined.
[2016-06-18 11:31] LABS: Glucose,Whole Blood 254 mg/dL (75-99)
--- NOTE | 2016-06-18 12:35 | P.HPIM ---
History of Present Illness H&P Date: 06/18/16 70-year-old female presented on the day of admission to the emergency room with a chief complaint of developing nausea vomiting frequent stooling with symptomatic shortness of breath. Did note the temp and the emergency room was 100.9 with a white count of 10.5.. Patient has a significant nicotine dependency stated that she quit smoking cigarettes about 48 hours ago. Prior to that 1 pack daily greater than 20 year history. It's noted the patient was recently hospitalized and discharged on June 14 that admission the patient was seen by cardiology service for chest pain. Patient had a heart catheterization which showed severe disease involving the distal RCA as well as the proximal LAD and the first OM branch of the left circumflex. Decision at that time was to treat patient medically.. Additionally patient that admission was treated for a UTI with urine culture showing Klebsiella which the patient was to finish antibiotic Levaquin in which the patient states she did comply. Additionally patient was noted to have an elevated creatinine and was seen by nephrology service. Patient that admission was treated for acute kidney injury. Patient does have a history of congenital solitary kidney. Absent left kidney Ultrasound of the kidney was obtained that admission it did show no evidence of hydronephrosis did show right side nephrolithasis.. Patient states that that admission was discharged states "I never really felt like me breathing had gotten any better over the last several days had been feeling so short of breath I cannot smoke. Chest x-ray obtained in the emergency room suggest possible bronchitis or chronic asthma. Patient currently is sitting up on the edge of the bed coarse rhonchi throughout no audible wheezing sats currently on room air documented 97%. Did note the patient's blood pressure is elevated 180/70 916 9/80. Patient slightly tachycardic Review of Systems Essentially unremarkable except as mentioned in the present illness Past Medical History Past Medical History: Asthma, Coronary Artery Disease (CAD), Chest Pain / Angina , COPD, CVA/TIA, Diabetes Mellitus, Deep Vein Thrombosis (DVT), Hyperlipidemia, Hypertension, Myocardial Infarction ([place]), Osteoarthritis (OA), Pneumonia, Renal Disease Additional Past Medical History / Comment(s): pt states she has one kidney, heart murmur, trouble staying asleep, hemroids, claustrophobic Last Myocardial Infarction Date:: around 2008 History of Any Multi-Drug Resistant Organisms: None Reported Past Surgical History: Appendectomy, Hysterectomy Additional Past Surgical History / Comment(s): lt femoral-pop bypass and amputation. Mar 2014. Amputation 2nd, 3rd, 4th toe Past Anesthesia/Blood Transfusion Reactions: No Reported Reaction Past Psychological History: Anxiety, Depression Additional Psychological History / Comment(s): pt stated has some mild depression d/t medical problems but not hopelss-denies any thoughts of harming self or others, no suicidal ideations.stated recent moved to a new [facility] that has no w/c ramp so she can't use her wheel chair. does use a cane and stated has had some falls. Smoking Status: Former smoker Past Alcohol Use History: None Reported Additional Past Alcohol Use History / Comment(s): Patient is a smoker of 2 packs per day for 55 years stated she quit officially 4 days ago. She denies any medical marijuana, marijuana, street drug use. She denies any alcohol use or abuse. She has been on disability for long period of time. She is currently living alone. Past Drug Use History: None Reported - Past Family History Mother Family Medical History: Cancer, Diabetes Mellitus, Myocardial Infarction ([place]) Additional Family Medical History / Comment(s): from aortic anurysm Father Family Medical History: Renal Disease Medications and Allergies Home Medications Medication Instructions Recorded Confirmed Type Albuterol Inhaler [Ventolin Hfa 2 puff INHALATION RT-Q6H PRN 06/02/16 06/17/16 History Inhaler] Cilostazol [Pletal] 100 mg PO BID 06/02/16 06/17/16 History Clopidogrel [Plavix] 75 mg PO DAILY 06/02/16 06/17/16 History Ezetimibe [Zetia] 10 mg PO DAILY 06/02/16 06/17/16 History Fluticasone Nasal [place] [Flonase 2 spr EA NOSTRIL DAILY PRN 06/02/16 06/17/16 History Nasal [place]et] Gabapentin 800 mg PO TID 06/02/16 06/17/16 History Hydrocodone/Acetaminophen [[place] 1 tab PO TID 06/02/16 06/17/16 History 10-325] Sertraline HCl [Zoloft] 100 mg PO DAILY 06/02/16 06/17/16 History oxyCODONE ER [OxyCONTIN] 15 mg PO DAILY PRN 06/02/16 06/17/16 History Allergies Allergy/AdvReac Type Severity Reaction Status Date / Time Iodinated Contrast Media - Allergy Severe Anaphylaxis Verified 06/17/16 13:17 Oral and [Iodinated Contrast Media - IV Dye] Iodine and Iodide Containing Allergy Severe Rash/Hives/ Verified 06/17/16 13:17 Produc Swelling nitrofurantoin Allergy Severe Anaphylaxis Verified 06/17/16 13:17 [From Macrobid] aspirin Allergy Rash/Hives Verified 06/17/16 13:17 cephalexin monohydrate Allergy Swelling Verified 06/17/16 13:17 [From Keflex] ciprofloxacin Allergy Unknown Verified 06/17/16 13:17 Penicillins Allergy Swelling Verified 06/17/16 13:17 Sulfa (Sulfonamide Allergy Rash/Hives Verified 06/17/16 13:17 Antibiotics) Physical Exam Vitals: Vital Signs Temp Pulse Pulse Pulse Pulse Resp BP 06/18/16 09:05 100 06/18/16 08:53 100 06/18/16 08:00 95 96 99 18 06/18/16 04:00 99.2 F 105 H 18 06/18/16 01:15 92 06/18/16 01:02 100 06/18/16 00:00 99.5 F 107 H 18 06/17/16 20:00 99.0 F 88 18 06/17/16 17:55 98.1 F 83 20 06/17/16 17:32 97.6 F 81 20 185/93 06/17/16 16:05 83 22 182/83 BP Pulse Ox 06/18/16 09:05 06/18/16 08:53 06/18/16 08:00 180/79 96 06/18/16 04:00 197/90 95 06/18/16 01:15 06/18/16 01:02 06/18/16 00:00 213/82 97 06/17/16 20:00 211/95 93 L 06/17/16 17:55 225/102 100 06/17/16 17:32 95 06/17/16 16:05 97 Intake and Output 06/17/16 06/18/16 06/18/16 22:59 06:59 14:59 Intake Total 200 300 Output Total 600 700 Balance -600 -500 300 Intake: Oral 200 300 Output: Urine 600 700 Other: Voiding Method Toilet Toilet Toilet # Voids 1 1 Weight 64.864 kg 71.5 kg GENERAL APPEARANCE: 70-year-old female patient is alert, oriented, in no acute distress. Sitting up on the edge of the bed states feels short of breath with any exertion with movement stimulates dry nonproductive cough VITAL SIGNS: Reviewed HEENT: Head is normocephalic and atraumatic. Pupils are equal and reactive. The nares are patent. Oropharynx is clear without lesions. NECK: Supple without lymphadenopathy. Traches midline. HEART: S1, S2. Regular rate and rhythm. Monitor showing sinus rhythm rate controlled denying chest pain when questioning LUNGS: Coarse rhonchi throughout harsh nonproductive cough no audible wheeze on room air sats are 95% ABDOMEN: Obese, nontender, nondistended with good bowel sounds. No peritoneal signs. No palpable organomegaly or masses. No stooling since admission EXTREMITIES: Normal skin color and turgor. No cyanosis, rash, ulceration, clubbing or edema. Radial pedal pulses are 2/4 bilaterally. NEUROLOGICAL: No focal deficits. Strength and sensation are grossly intact. Results CBC & Chem 7: 06/17/16 12:15 06/17/16 12:15 Labs: Abnormal Lab Results - Last 24 Hours (Table) 06/17/16 06/17/16 06/18/16 Range/Units 16:38 20:52 00:06 POC Glucose (mg/dL) 230 H (75-99) mg/dL Total Creatine Kinase 178 H (30-135) U/L CK-MB (CK-2) 2.6 H* (0.0-2.4) ng/mL Troponin I 0.098 H* 0.091 H* (0.000-0.034) ng/mL Triglycerides (<150) mg/dL HDL Cholesterol (40-60) mg/dL 06/18/16 06/18/16 06/18/16 Range/Units 06:38 07:46 11:29 POC Glucose (mg/dL) 199 H 254 H (75-99) mg/dL Total Creatine Kinase (30-135) U/L CK-MB (CK-2) (0.0-2.4) ng/mL Troponin I (0.000-0.034) ng/mL Triglycerides 250 H (<150) mg/dL HDL Cholesterol 62 H (40-60) mg/dL Thrombosis Risk Factor Assmnt - Choose All That Apply Any of the Below Risk Factors Present?: Yes Each Factor Represents 1 point: Abnormal pulmonary function (COPD), Obesity ( BMI >25), Swollen legs (current), Varicose veins Other Risk Factors: Yes Each Risk Factor Represents 2 Points: Age 61-74 years Each Risk Factor Represents 3 Points: History of DVT/PE Other congenital or acquired thrombophilia - If yes, enter type in comment: No Thrombosis Risk Factor Assessment Total Risk Factor Score: 9 Thrombosis Risk Factor Assessment Level: High Risk Assessment and Plan Plan: Impression Present on admission shortness of breath suspect due to an acute exacerbation of COPD versus bronchitis Significant nicotine dependency greater than 1 pack a day greater than 40 year history Obesity BMI 30 Present on admission episode of hypertension urgency Present on admission fever with leukocytosis Elevated troponins cardiology following Type 2 diabetes insulin hemoglobin A1c 9.6 Peripheral vascular disease with previous amputation of the toes Congenital solitary kidney with absent left kidney Recent heart catheterization showing severe disease involving the RCA no intervention recommended done in June 13 2016 Plan Consult pulmonary for pulmonary eval Patient's been counseled about stop smoking cigarettes Monitor blood pressure and heart rate adjust the antihypertensive meds as indicated Monitor blood sugars address adjust the insulin as indicated respiratory treatments as ordered DVT and GI prophylaxis Resume home meds as appropriate Continue recommendations by cardiology Repeat labs in the morning Further recommendations pending The above dictated assessment and findings were discussed with Dr. Randall Lake and the plan of care have been dictated as directed. Christal Brooke nurse practitioner acting as a scribe for dr topete
[2016-06-18] MEDS: methylPREDNISolone SOD SUCCI 125 MG/2 ML VIAL IV SCH ×2 (13:02→17:04)
[2016-06-18] MEDS: ENOXAPARIN 60 MG/0.6 ML SYRINGE SQ SCH (13:02)
--- NOTE | 2016-06-18 13:09 | P.CNPUL ---
History of Present Illness Consult date: 06/18/16 Reason for consult: dyspnea, cough, COPD Chief complaint: Shortness of breath History of present illness: This is a 70-year-old female who I'm asked to see because of shortness of breath. She apparently came into the emergency department complaining of shortness of breath. She was apparently inpatient here for 10 days. Went home for 2 days and then came back. She was seen in the emergency department yesterday. I was just consulted on her. The patient complains of increasing shortness of breath chest congestion coughing. Producing some phlegm. It is difficult for her to get up. When she does it has a slightly yellow color to it. Not coughing up any blood. No fever no chills. Also complaining of what sounds like a is a positive acute sinusitis. Apparently has a heavy tobacco use smoking 50 years at 2 packs a day. Has never seen a lung doctor. Only uses her rescue inhaler at home. She has some other issues including abdominal discomfort and pain is an she also mentions some put of abdominal infection. Her medical history includes COPD CAD angina CVA diabetes DVT hyperlipidemia hypertension myocardial infarction DJD pneumonia as well as peripheral artery disease. She has a number of medical problems. Review of Systems A 12 point review of system is positive for primarily shortness of breath chest congestion coughing wheezing tightness in her chest. She also has nasal congestion drainage and facial pain. The rest of the 12 point review of system is essentially negative save for some abdominal discomfort as well. Past Medical History Past Medical History: Asthma, Coronary Artery Disease (CAD), Chest Pain / Angina , COPD, CVA/TIA, Diabetes Mellitus, Deep Vein Thrombosis (DVT), Hyperlipidemia, Hypertension, Myocardial Infarction (MS), Osteoarthritis (OA), Pneumonia, Renal Disease Additional Past Medical History / Comment(s): pt states she has one kidney, heart murmur, trouble staying asleep, hemroids, claustrophobic Last Myocardial Infarction Date:: around 2008 History of Any Multi-Drug Resistant Organisms: None Reported Past Surgical History: Appendectomy, Hysterectomy Additional Past Surgical History / Comment(s): lt femoral-pop bypass and amputation. Mar 2014. Amputation 2nd, 3rd, 4th toe Past Anesthesia/Blood Transfusion Reactions: No Reported Reaction Past Psychological History: Anxiety, Depression Additional Psychological History / Comment(s): pt stated has some mild depression d/t medical problems but not hopelss-denies any thoughts of harming self or others, no suicidal ideations.stated recent moved to a new apt that has no w/c ramp so she can't use her wheel chair. does use a cane and stated has had some falls. Smoking Status: Former smoker Past Alcohol Use History: None Reported Additional Past Alcohol Use History / Comment(s): Patient is a smoker of 2 packs per day for 55 years stated she quit officially 4 days ago. She denies any medical marijuana, marijuana, street drug use. She denies any alcohol use or abuse. She has been on disability for long period of time. She is currently living alone. Past Drug Use History: None Reported - Past Family History Mother Family Medical History: Cancer, Diabetes Mellitus, Myocardial Infarction (MS) Additional Family Medical History / Comment(s): from aortic anurysm Father Family Medical History: Renal Disease Medications and Allergies Home Medications Medication Instructions Recorded Confirmed Type Albuterol Inhaler [Ventolin Hfa 2 puff INHALATION RT-Q6H PRN 06/02/16 06/17/16 History Inhaler] Cilostazol [Pletal] 100 mg PO BID 06/02/16 06/17/16 History Clopidogrel [Plavix] 75 mg PO DAILY 06/02/16 06/17/16 History Ezetimibe [Zetia] 10 mg PO DAILY 06/02/16 06/17/16 History Fluticasone Nasal [place] [Flonase 2 spr EA NOSTRIL DAILY PRN 06/02/16 06/17/16 History Nasal [place]] Gabapentin 800 mg PO TID 06/02/16 06/17/16 History Hydrocodone/Acetaminophen [[place] 1 tab PO TID 06/02/16 06/17/16 History 10-325] Sertraline HCl [Zoloft] 100 mg PO DAILY 06/02/16 06/17/16 History oxyCODONE ER [OxyCONTIN] 15 mg PO DAILY PRN 06/02/16 06/17/16 History Allergies Allergy/AdvReac Type Severity Reaction Status Date / Time Iodinated Contrast Media - Allergy Severe Anaphylaxis Verified 06/17/16 13:17 Oral and [Iodinated Contrast Media - IV Dye] Iodine and Iodide Containing Allergy Severe Rash/Hives/ Verified 06/17/16 13:17 Produc Swelling nitrofurantoin Allergy Severe Anaphylaxis Verified 06/17/16 13:17 [From Macrobid] aspirin Allergy Rash/Hives Verified 06/17/16 13:17 cephalexin monohydrate Allergy Swelling Verified 06/17/16 13:17 [From Keflex] ciprofloxacin Allergy Unknown Verified 06/17/16 13:17 Penicillins Allergy Swelling Verified 06/17/16 13:17 Sulfa (Sulfonamide Allergy Rash/Hives Verified 06/17/16 13:17 Antibiotics) Physical Exam Osteopathic Statement: *. No significant issues noted on an osteopathic structural exam other than those noted in the History and Physical/Consult. Vitals: Vital Signs Temp Pulse Pulse Pulse Pulse Resp BP 06/18/16 12:06 99.4 F 86 18 06/18/16 09:05 100 06/18/16 08:53 100 06/18/16 08:00 95 96 99 18 06/18/16 04:00 99.2 F 105 H 18 06/18/16 01:15 92 06/18/16 01:02 100 06/18/16 00:00 99.5 F 107 H 18 06/17/16 20:00 99.0 F 88 18 06/17/16 17:55 98.1 F 83 20 06/17/16 17:32 97.6 F 81 20 185/93 06/17/16 16:05 83 22 182/83 BP Pulse Ox 06/18/16 12:06 169/80 97 06/18/16 09:05 06/18/16 08:53 06/18/16 08:00 180/79 96 06/18/16 04:00 197/90 95 06/18/16 01:15 06/18/16 01:02 06/18/16 00:00 213/82 97 06/17/16 20:00 211/95 93 L 06/17/16 17:55 225/102 100 06/17/16 17:32 95 06/17/16 16:05 97 Intake and Output 06/17/16 06/18/16 06/18/16 22:59 06:59 14:59 Intake Total 200 300 Output Total 600 700 Balance -600 -500 300 Intake: Oral 200 300 Output: Urine 600 700 Other: Voiding Method Toilet Toilet Toilet # Voids 1 1 Weight 64.864 kg 71.5 kg No acute distress, oriented 3. No respiratory difficulty. She does have a very wet congested sounding cough. HEENT examination is grossly unremarkable. Mucous membranes are moist. No oral lesions. Neck is Supple. Full range of motion. No adenopathy or thyromegaly. Cardiovascular examination reveals regular rhythm rate. Heart rate about 90. S1 and S2 normal. Heart sounds are distant. Lungs reveal diffuse inspiratory next or rhonchi wheezes. Breath sounds diminished. This prolongation on forced maneuver. She coughs and wheezes more significantly on forced maneuver. Quite noisy chest. Abdomen soft tender on palpation. Bowel sounds are noted. Extremities reveal some mild edema. Results - Laboratory Findings CBC and BMP: 06/17/16 12:15 06/17/16 12:15 PT/INR, D-dimer PT 10.9 sec (9.0-12.0) 06/17/16 12:15 INR 1.1 (<1.1) 06/17/16 12:15 Abnormal lab findings: Abnormal Labs 06/17/16 06/17/16 06/18/16 16:38 20:52 00:06 POC Glucose (mg/dL) 230 H Total Creatine Kinase 178 H CK-MB (CK-2) 2.6 H* Troponin I 0.098 H* 0.091 H* Triglycerides HDL Cholesterol 06/18/16 06/18/16 06/18/16 06:38 07:46 11:29 POC Glucose (mg/dL) 199 H 254 H Total Creatine Kinase CK-MB (CK-2) Troponin I Triglycerides 250 H HDL Cholesterol 62 H - Diagnostic Findings Chest x-ray: image reviewed (Chest x-rays labs and medications are reviewed.) Assessment and Plan (1) Acute exacerbation of chronic obstructive pulmonary disease (COPD) Status: Acute (2) Acute sinusitis Status: Acute Plan: Plan dated 06/10/2016 I will focus on the patient's lungs. She clearly has underlying COPD. We'll make sure she is on DuoNeb 4 times a day and when necessary. Alternatively I may just give her albuterol and add Spiriva 1 puff a day. In addition she should be on Pulmicort 1 mg and performance twice a day. Corticosteroids would be of benefit. Also some pleural oral antibiotic would be appropriate. Chest x -ray shows only what appears to be chronic bronchitis with. Bronchial cuffing. Additional recommendations suggestions are forthcoming. Time with Patient: Greater than 30
[2016-06-18] MEDS ORDERED: IPRATROPIUM-ALBUTEROL 3 ML NEB INHALATION PRN (13:10)
[2016-06-18 16:22] LABS: Glucose,Whole Blood 236 mg/dL (75-99)
[2016-06-18] MEDS: IPRATROPIUM-ALBUTEROL 3 ML NEB INHALATION SCH ×4 (16:30→20:37)
[2016-06-18] MEDS: hydrALAZINE HCL 50 MG TAB PO SCH ×2 (17:04→22:26)
[2016-06-18] MEDS: hydrALAZINE HCL 20 MG/ML 1 ML VIAL IVP PRN (17:25)
[2016-06-18 20:37] LABS: Glucose,Whole Blood 344 mg/dL (75-99)
[2016-06-18] MEDS: FORMOTEROL FUMARATE 20 MCG/2 ML NEBU INHALATION SCH (20:37)
[2016-06-18] MEDS: BUDESONIDE 1 MG/2 ML NEBU INHALATION SCH (20:37)
[2016-06-18] MEDS ORDERED: INSULIN LISPRO (humaLOG) 300 UNIT/3 ML VIAL SQ ONE (20:47)
[2016-06-18] MEDS ORDERED: MONTELUKAST 10 MG TAB PO SCH (21:00)
[2016-06-18] MEDS: INSULIN LISPRO (humaLOG) 300 UNIT/3 ML VIAL SQ SCH ×2 (21:35→21:36)
[2016-06-18] MEDS: FAMOTIDINE 20 MG TAB PO SCH (22:26)
[2016-06-18] MEDS: ATORVASTATIN 40 MG TAB PO SCH (22:27)
[2016-06-19] MEDS: methylPREDNISolone SOD SUCCI 125 MG/2 ML VIAL IV SCH ×5 (00:46→23:54)
[2016-06-19 01:42] LABS: Hemoglobin A1C 8.5 % (4.2-6.1)
[2016-06-19 05:45] LABS: Glucose,Whole Blood 161 mg/dL (75-99)
[2016-06-19] MEDS: INSULIN LISPRO (humaLOG) 300 UNIT/3 ML VIAL SQ SCH ×4 (06:37→21:55)
[2016-06-19 07:09] LABS: Basophils % (A) 0 %; CH 31.1; CHCM 32.5; Eosinophils % (A) 0 %; HCT 34.5 % (34.0-46.0); HGB 10.9 gm/dL (11.4-16.0); Luc # (Auto) 0.05; Luc % (Auto) 1; Lymphocytes # (A) 0.6 k/uL (1.0-4.8); Lymphocytes % (A) 7 %; MCH 30.4 pg (25.0-35.0); MCHC 31.6 g/dL (31.0-37.0); MCV 96.3 fL (80.0-100.0); Mean Platelet Volume 7.4; Monocytes # (A) 0.2 k/uL (0-1.0); Monocytes % (A) 2 %; Neutrophils # (A) 7.3 k/uL (1.3-7.7); Neutrophils % (A) 90 %; RBC 3.59 m/uL (3.80-5.40); RDW 14.4 % (11.5-15.5); WBC 8.2 k/uL (3.8-10.6); WBC (Perox) 8.52
[2016-06-19 07:23] LABS: Calcium 9.2 mg/dL (8.4-10.2); Total Bilirubin 0.4 mg/dL (0.2-1.3); Total Protein 6.1 g/dL (6.3-8.2)
[2016-06-19 07:31] LABS: Potassium 6.4 mmol/L (3.5-5.1)
[2016-06-19] MEDS: INSULIN NPH/REG INSULIN 70/30 300 UNIT/3 ML VIAL SQ SCH ×2 (07:41→17:14)
[2016-06-19] MEDS: HYDROmorphone 1 MG/ML 1 ML SYRINGE IVP PRN ×4 (07:46→21:56)
[2016-06-19] MEDS ORDERED: AZITHROMYCIN 500 MG TAB PO SCH (09:00)
[2016-06-19] MEDS: IPRATROPIUM-ALBUTEROL 3 ML NEB INHALATION SCH ×4 (09:04→19:51)
[2016-06-19] MEDS: BUDESONIDE 1 MG/2 ML NEBU INHALATION SCH ×2 (09:04→19:51)
[2016-06-19] MEDS: FORMOTEROL FUMARATE 20 MCG/2 ML NEBU INHALATION SCH ×2 (09:04→19:51)
[2016-06-19] MEDS: ENOXAPARIN 60 MG/0.6 ML SYRINGE SQ SCH (10:04)
[2016-06-19 11:51] LABS: Glucose,Whole Blood 261 mg/dL (75-99)
[2016-06-19] MEDS ORDERED: SODIUM POLYSTYRENE SULFONATE 15 GM/60 ML BOTTLE PO ONE (12:05)
--- NOTE | 2016-06-19 12:19 | P.PN ---
Subjective Principal diagnosis: Acute exacerbation of chronic obstructive pulmonary disease Patient is a 70-year-old female who presented to [facility] was cough and worsening shortness of breath she was started on IV antibiotic IV steroids and inhaled bronchodilators she is admitted to telemetry floor. Objective - Vital Signs Vital signs: Vital Signs Temp 96.7 F L 06/19/16 11:45 Pulse 91 06/19/16 11:45 Resp 16 06/19/16 11:45 BP 125/85 06/19/16 11:45 Pulse Ox 92 L 06/19/16 11:45 Intake & Output 06/18/16 06/19/16 06/19/16 18:59 06:59 18:59 Intake Total 300 100 Output Total 250 200 Balance 50 -200 100 Weight 69.4 kg Intake: Oral 300 100 Output: Urine 250 200 Other: Voiding Method Toilet Toilet Toilet # Voids 1 1 # Bowel Movements 1 - Exam In general patient is alert and oriented 3 in no apparent distress HEENT head normocephalic and atraumatic Neck is supple no JVD no goiter no lymphadenopathy Chest exam reveals a few scattered crackles no wheezing Cardiac exam reveals regular heart sounds S1 and S2 no gallops no murmurs Abdomen is soft nontender no organomegaly Extremity exam reveals mild edema left more than right patient had vascular surgery on the left and had 3 toe amputation on the left - Labs CBC & Chem 7: 06/19/16 06:39 06/19/16 06:39 Labs: Abnormal Lab Results - Last 24 Hours (Table) 06/18/16 06/18/16 06/18/16 Range/Units 07:46 16:21 20:35 RBC (3.80-5.40) m/uL Hgb (11.4-16.0) gm/dL Lymphocytes # (1.0-4.8) k/uL Potassium (3.5-5.1) mmol/L BUN (7-17) mg/dL Creatinine (0.52-1.04) mg/dL Glucose (74-99) mg/dL POC Glucose (mg/dL) 236 H 344 H (75-99) mg/dL Hemoglobin A1c 8.5 H (4.2-6.1) % Total Protein (6.3-8.2) g/dL 06/19/16 06/19/16 06/19/16 Range/Units 05:41 06:39 06:39 RBC 3.59 L (3.80-5.40) m/uL Hgb 10.9 L (11.4-16.0) gm/dL Lymphocytes # 0.6 L (1.0-4.8) k/uL Potassium 6.4 H* (3.5-5.1) mmol/L BUN 28 H (7-17) mg/dL Creatinine 1.30 H (0.52-1.04) mg/dL Glucose 183 H (74-99) mg/dL POC Glucose (mg/dL) 161 H (75-99) mg/dL Hemoglobin A1c (4.2-6.1) % Total Protein 6.1 L (6.3-8.2) g/dL 06/19/16 Range/Units 11:49 RBC (3.80-5.40) m/uL Hgb (11.4-16.0) gm/dL Lymphocytes # (1.0-4.8) k/uL Potassium (3.5-5.1) mmol/L BUN (7-17) mg/dL Creatinine (0.52-1.04) mg/dL Glucose (74-99) mg/dL POC Glucose (mg/dL) 261 H (75-99) mg/dL Hemoglobin A1c (4.2-6.1) % Total Protein (6.3-8.2) g/dL Microbiology - Last 24 Hours (Table) 06/17/16 16:38 Blood Culture - Preliminary Blood No Growth after 24 hours Assessment and Plan Plan: #1 acute purulent bronchitis #2 acute exacerbation of chronic obstructive pulmonary disease #3 peripheral vascular disease #4 hyperkalemia potassium up to 6.4 today she would be given a dose of Kayexalate will recheck labs in a.m. #5 underlying history of hypertension #6 underlying history of hyperlipidemia #7 chronic pain maintained on [place] and Dilaudid At this time continue was current care she is maintained on Zithromax only for antibiotic due to multiple antibiotic ALLERGIES Will follow in a.m.
--- NOTE | 2016-06-19 12:19 | P.PN ---
Subjective Progress note dated 06/19/2016 This is a 70-year-old female I saw yesterday in consultation for shortness of breath. She came into the emergency department complaining of shortness of breath. She's feeling better from that standpoint. She was apparently here for 10 days and then went home for 2 days and then came back. Her complaints include shortness of breath chest congestion cough and some phlegm production. Also having sinus type symptoms. Today she is feeling a bit better. Complaining that she should be getting IV antibiotics. The patient's medical problems including probable COPD although she's never had pulmonary function testing, CAD angina CVA diabetes DVT hyperlipidemia hypertension myocardial infarction DJD and pneumonia as well as peripheral artery disease. Objective - Vital Signs Vital signs: Vital Signs Temp 96.7 F L 06/19/16 11:45 Pulse 91 06/19/16 11:45 Resp 16 06/19/16 11:45 BP 125/85 06/19/16 11:45 Pulse Ox 92 L 06/19/16 11:45 Intake & Output 06/18/16 06/19/16 06/19/16 18:59 06:59 18:59 Intake Total 300 100 Output Total 250 200 Balance 50 -200 100 Weight 69.4 kg Intake: Oral 300 100 Output: Urine 250 200 Other: Voiding Method Toilet Toilet Toilet # Voids 1 1 # Bowel Movements 1 - Exam No acute distress, oriented 3. HEENT examination is grossly unremarkable. Mucous membranes are moist. No oral lesions. Supple full range of motion. No adenopathy. Cardiovascular examination reveals regular rhythm rate. S1 and S2 normal. No S3-S4 or murmur. Lungs reveal a few scattered rhonchi. This some expiratory wheezes. Breath sounds are diminished. Abdomen is obese. Extremities are intact. - Labs CBC & Chem 7: 06/19/16 06:39 06/19/16 06:39 Labs: Abnormal Lab Results - Last 24 Hours (Table) 06/18/16 06/18/16 06/18/16 Range/Units 07:46 16:21 20:35 RBC (3.80-5.40) m/uL Hgb (11.4-16.0) gm/dL Lymphocytes # (1.0-4.8) k/uL Potassium (3.5-5.1) mmol/L BUN (7-17) mg/dL Creatinine (0.52-1.04) mg/dL Glucose (74-99) mg/dL POC Glucose (mg/dL) 236 H 344 H (75-99) mg/dL Hemoglobin A1c 8.5 H (4.2-6.1) % Total Protein (6.3-8.2) g/dL 06/19/16 06/19/16 06/19/16 Range/Units 05:41 06:39 06:39 RBC 3.59 L (3.80-5.40) m/uL Hgb 10.9 L (11.4-16.0) gm/dL Lymphocytes # 0.6 L (1.0-4.8) k/uL Potassium 6.4 H* (3.5-5.1) mmol/L BUN 28 H (7-17) mg/dL Creatinine 1.30 H (0.52-1.04) mg/dL Glucose 183 H (74-99) mg/dL POC Glucose (mg/dL) 161 H (75-99) mg/dL Hemoglobin A1c (4.2-6.1) % Total Protein 6.1 L (6.3-8.2) g/dL 06/19/16 Range/Units 11:49 RBC (3.80-5.40) m/uL Hgb (11.4-16.0) gm/dL Lymphocytes # (1.0-4.8) k/uL Potassium (3.5-5.1) mmol/L BUN (7-17) mg/dL Creatinine (0.52-1.04) mg/dL Glucose (74-99) mg/dL POC Glucose (mg/dL) 261 H (75-99) mg/dL Hemoglobin A1c (4.2-6.1) % Total Protein (6.3-8.2) g/dL Microbiology - Last 24 Hours (Table) 06/17/16 16:38 Blood Culture - Preliminary Blood No Growth after 24 hours Assessment and Plan (1) Acute exacerbation of chronic obstructive pulmonary disease (COPD) Status: Acute (2) Acute sinusitis Status: Acute Plan: Plan dated 06/10/2016 I will focus on the patient's lungs. She clearly has underlying COPD. We'll make sure she is on DuoNeb 4 times a day and when necessary. Alternatively I may just give her albuterol and add Spiriva 1 puff a day. In addition she should be on Pulmicort 1 mg and performance twice a day. Corticosteroids would be of benefit. Also some pleural oral antibiotic would be appropriate. Chest x -ray shows only what appears to be chronic bronchitis with. Bronchial cuffing. Additional recommendations suggestions are forthcoming. Plan dated 06/19/2016 The patient's medications were adjusted yesterday. I may give her some additional antibiotics. She's complaining that she won't get better until she gets IV antibiotics. Additional recommendations suggestions are forthcoming. Prognosis is guarded. Time with Patient: Less than 30
[2016-06-19] MEDS: CLOPIDOGREL 75 MG TAB PO SCH ×2 (13:58→15:17)
[2016-06-19] MEDS: CILOSTAZOL 100 MG TAB PO SCH ×3 (13:58→21:54)
[2016-06-19] MEDS: amLODIPine 10 MG TAB PO SCH ×2 (13:58→15:17)
[2016-06-19] MEDS: hydrALAZINE HCL 50 MG TAB PO SCH ×3 (13:58→21:56)
[2016-06-19] MEDS: EZETIMIBE 10 MG TAB PO SCH ×2 (13:58→15:16)
[2016-06-19] MEDS: GABAPENTIN 400 MG CAP PO SCH ×3 (13:58→21:54)
[2016-06-19] MEDS: ISOSORBIDE MONONITRATE ER 60 MG TAB.ER.24H PO SCH ×2 (13:58→15:18)
[2016-06-19] MEDS: SERTRALINE 100 MG TAB PO SCH ×2 (13:59→15:18)
[2016-06-19] MEDS: METOPROLOL TARTRATE 50 MG TAB PO SCH ×3 (13:59→21:54)
[2016-06-19] MEDS: guaiFENesin 600 MG TABLET.ER PO SCH ×2 (13:59→21:54)
[2016-06-19] MEDS: AZITHROMYCIN 500 MG in SODIUM CHLORIDE 0.9% 250 ML IVPB SCH (14:04)
[2016-06-19] MEDS: MORPHINE SULFATE 2 MG/ML SYRINGE IVP PRN (16:12)
[2016-06-19 16:36] LABS: Glucose,Whole Blood 200 mg/dL (75-99)
[2016-06-19 21:07] LABS: Glucose,Whole Blood 335 mg/dL (75-99)
[2016-06-19] MEDS: FAMOTIDINE 20 MG TAB PO SCH (21:54)
[2016-06-19] MEDS: ATORVASTATIN 40 MG TAB PO SCH (21:54)
[2016-06-19] MEDS: HYDROcodone/APAP 10-325MG 1 EACH TAB PO PRN (23:52)
[2016-06-20] MEDS: HYDROmorphone 1 MG/ML 1 ML SYRINGE IVP PRN ×2 (01:20→04:59)
[2016-06-20 06:08] LABS: Glucose,Whole Blood 313 mg/dL (75-99)
[2016-06-20 06:14] LABS: Basophils % (A) 0 %; CH 30.9; CHCM 31.6; Eosinophils # (A) 0.1 k/uL (0-0.7); Eosinophils % (A) 1 %; HCT 30.1 % (34.0-46.0); HDW 2.52; HGB 9.6 gm/dL (11.4-16.0); Luc # (Auto) 0.11; Luc % (Auto) 1; Lymphocytes # (A) 0.8 k/uL (1.0-4.8); Lymphocytes % (A) 5 %; MCH 31.2 pg (25.0-35.0); MCHC 31.8 g/dL (31.0-37.0); MCV 98.3 fL (80.0-100.0); Macrocytosis Slight; Mean Platelet Volume 6.8; Monocytes # (A) 0.2 k/uL (0-1.0); Monocytes % (A) 2 %; Neutrophils # (A) 13.2 k/uL (1.3-7.7); Neutrophils % (A) 91 %; RBC 3.07 m/uL (3.80-5.40); RDW 14.8 % (11.5-15.5); WBC 14.5 k/uL (3.8-10.6); WBC (Perox) 15.59
[2016-06-20] MEDS: methylPREDNISolone SOD SUCCI 125 MG/2 ML VIAL IV SCH ×2 (06:26→17:27)
[2016-06-20] MEDS: INSULIN LISPRO (humaLOG) 300 UNIT/3 ML VIAL SQ SCH ×3 (06:27→17:26)
[2016-06-20 06:31] LABS: Calcium 8.5 mg/dL (8.4-10.2); Potassium 5.2 mmol/L (3.5-5.1); Total Bilirubin 0.3 mg/dL (0.2-1.3); Total Protein 5.8 g/dL (6.3-8.2)
[2016-06-20] MEDS: INSULIN NPH/REG INSULIN 70/30 300 UNIT/3 ML VIAL SQ SCH (07:26)
[2016-06-20] MEDS: IPRATROPIUM-ALBUTEROL 3 ML NEB INHALATION SCH ×4 (08:20→19:29)
[2016-06-20] MEDS: BUDESONIDE 1 MG/2 ML NEBU INHALATION SCH ×2 (08:21→19:29)
[2016-06-20] MEDS: FORMOTEROL FUMARATE 20 MCG/2 ML NEBU INHALATION SCH ×2 (08:21→19:29)
[2016-06-20] MEDS: CILOSTAZOL 100 MG TAB PO SCH ×2 (09:29→22:27)
[2016-06-20] MEDS: amLODIPine 10 MG TAB PO SCH (09:29)
[2016-06-20] MEDS: EZETIMIBE 10 MG TAB PO SCH (09:30)
[2016-06-20] MEDS: CLOPIDOGREL 75 MG TAB PO SCH (09:30)
[2016-06-20] MEDS: ENOXAPARIN 60 MG/0.6 ML SYRINGE SQ SCH (09:30)
[2016-06-20] MEDS: hydrALAZINE HCL 50 MG TAB PO SCH ×3 (09:31→22:28)
[2016-06-20] MEDS: ISOSORBIDE MONONITRATE ER 60 MG TAB.ER.24H PO SCH (09:31)
[2016-06-20] MEDS: GABAPENTIN 400 MG CAP PO SCH ×3 (09:31→22:27)
[2016-06-20] MEDS: guaiFENesin 600 MG TABLET.ER PO SCH ×2 (09:31→22:30)
[2016-06-20] MEDS: METOPROLOL TARTRATE 50 MG TAB PO SCH ×2 (09:32→22:35)
[2016-06-20] MEDS: SERTRALINE 100 MG TAB PO SCH (09:32)
[2016-06-20 12:05] LABS: Glucose,Whole Blood 336 mg/dL (75-99)
[2016-06-20] MEDS: AZITHROMYCIN 500 MG in SODIUM CHLORIDE 0.9% 250 ML IVPB SCH (12:07)
--- NOTE | 2016-06-20 13:08 | P.PN ---
Subjective Patient's complaining of sinus congestion today. She is still having audible wheezing. Objective - Vital Signs Vital signs: Vital Signs Temp 98.8 F 06/20/16 09:25 Pulse 99 06/20/16 12:20 Resp 22 06/20/16 12:20 BP 142/63 06/20/16 12:20 Pulse Ox 94 L 06/20/16 12:20 Intake & Output 06/19/16 06/20/16 06/20/16 18:59 06:59 18:59 Intake Total 180 720 Output Total 400 Balance 180 -400 720 Weight 71.2 kg Intake: Oral 180 720 Output: Urine 400 Other: Voiding Method Toilet Toilet # Voids 1 - Exam General: The patient is awake and alert, in no distress Eye: there is normal conjunctiva bilaterally. Neck: The neck is supple, there is no JVD. Cardiovascular: Normal S1-S2, no S3-S4, no murmurs. Respiratory: Lungs with diffuse wheezing all over the chest Gastrointestinal: Abdomen is soft, nontender Musculoskeletal: There is no pedal edema. Neurological:. Speech is normal. Skin: Skin is warm and dry - Labs CBC & Chem 7: 06/20/16 06:01 06/20/16 06:01 Labs: Abnormal Lab Results - Last 24 Hours (Table) 06/19/16 06/19/16 06/20/16 Range/Units 16:34 21:05 06:01 WBC (3.8-10.6) k/uL RBC (3.80-5.40) m/uL Hgb (11.4-16.0) gm/dL Hct (34.0-46.0) % Neutrophils # (1.3-7.7) k/uL Lymphocytes # (1.0-4.8) k/uL Sodium 136 L (137-145) mmol/L Potassium 5.2 H (3.5-5.1) mmol/L BUN 52 H (7-17) mg/dL Creatinine 1.70 H (0.52-1.04) mg/dL Glucose 298 H (74-99) mg/dL POC Glucose (mg/dL) 200 H 335 H (75-99) mg/dL Total Protein 5.8 L (6.3-8.2) g/dL Albumin 3.3 L (3.5-5.0) g/dL 06/20/16 06/20/16 06/20/16 Range/Units 06:01 06:06 11:41 WBC 14.5 H (3.8-10.6) k/uL RBC 3.07 L (3.80-5.40) m/uL Hgb 9.6 L (11.4-16.0) gm/dL Hct 30.1 L (34.0-46.0) % Neutrophils # 13.2 H (1.3-7.7) k/uL Lymphocytes # 0.8 L (1.0-4.8) k/uL Sodium (137-145) mmol/L Potassium (3.5-5.1) mmol/L BUN (7-17) mg/dL Creatinine (0.52-1.04) mg/dL Glucose (74-99) mg/dL POC Glucose (mg/dL) 313 H 336 H (75-99) mg/dL Total Protein (6.3-8.2) g/dL Albumin (3.5-5.0) g/dL Assessment and Plan Plan: #1 acute purulent bronchitis on azithromycin #2 acute exacerbation of chronic obstructive pulmonary disease on bronchodilators and IV steroids #3 peripheral vascular disease #4 hyperkalemia on presentation now resolved #5 underlying history of hypertension #6 underlying history of hyperlipidemia #7 Coronary artery disease managed medically #8 severe peripheral vascular occlusive disease
--- NOTE | 2016-06-20 15:20 | P.PN ---
Subjective This is a 70-year-old female with known history of COPD along with history of CAD angina CVA diabetes DVT hyperlipidemia hypertension myocardial infarction DJD and pneumonia as well as peripheral artery disease. The patient was Hospital as for increased shortness of breath. She came into the emergency department complaining of shortness of breath. She's feeling better from that standpoint. She was apparently here for 10 days and then went home for 2 days and then came back. Her complaints include shortness of breath chest congestion cough and some phlegm production. Also having sinus type symptoms. The patient was admitted and was treated for an acute COPD exacerbation and today she is being seen in follow-up On 06/20/2016, the patient is being seen in follow-up. The patient is still having difficulty breathing. She is congested wheezing short of breath and she has not recovered. She is having difficulty with ambulation mainly due to shortness of breath. No hemoptysis. No pleurisy. She is on Zithromax is also on IV Solu-Medrol 40 mg every 12 hours and she has developed steroid-induced hyperglycemia. No insulin drip is being initiated yet. The patient is receiving long-acting insulin along with sliding scale coverage. Objective - Vital Signs Vital signs: Vital Signs Temp 98.8 F 06/20/16 09:25 Pulse 99 06/20/16 12:20 Resp 22 06/20/16 12:20 BP 142/63 06/20/16 12:20 Pulse Ox 94 L 06/20/16 13:37 Intake & Output 06/19/16 06/20/16 06/20/16 18:59 06:59 18:59 Intake Total 180 720 Output Total 400 150 Balance 180 -400 570 Weight 71.2 kg Intake: Oral 180 720 Output: Urine 400 150 Other: Voiding Method Toilet Toilet # Voids 1 - Exam Head exam was generally normal. There was no scleral icterus or corneal arcus. Mucous membranes were moist.Neck was supple and without jugular venous distension, thyromegaly, or carotid bruits. Carotids were easily palpable bilaterally. There was no adenopathy. Lung sounds are diminished bilaterally along with that there is diffuse expiratory wheezes throughout the lung pires.Cardiac exam revealed the PMI to be normally situated and sized. The rhythm was regular and no extrasystoles were noted during several minutes of auscultation. The first and second heart sounds were normal and physiologic splitting of the second heart sound was noted. There were no murmurs, rubs, clicks, or gallops.Abdominal exam revealed normal bowel sounds. The abdomen was soft, non-tender, and without masses, organomegaly, or appreciable enlargement of the abdominal aorta.Examination of the extremities revealed easily palpable radial, femoral and pedal pulses. There was no cyanosis, clubbing or edema. - Labs CBC & Chem 7: 06/20/16 06:01 06/20/16 06:01 Labs: Abnormal Lab Results - Last 24 Hours (Table) 06/19/16 06/19/16 06/20/16 Range/Units 16:34 21:05 06:01 WBC (3.8-10.6) k/uL RBC (3.80-5.40) m/uL Hgb (11.4-16.0) gm/dL Hct (34.0-46.0) % Neutrophils # (1.3-7.7) k/uL Lymphocytes # (1.0-4.8) k/uL Sodium 136 L (137-145) mmol/L Potassium 5.2 H (3.5-5.1) mmol/L BUN 52 H (7-17) mg/dL Creatinine 1.70 H (0.52-1.04) mg/dL Glucose 298 H (74-99) mg/dL POC Glucose (mg/dL) 200 H 335 H (75-99) mg/dL Total Protein 5.8 L (6.3-8.2) g/dL Albumin 3.3 L (3.5-5.0) g/dL 06/20/16 06/20/16 06/20/16 Range/Units 06:01 06:06 11:41 WBC 14.5 H (3.8-10.6) k/uL RBC 3.07 L (3.80-5.40) m/uL Hgb 9.6 L (11.4-16.0) gm/dL Hct 30.1 L (34.0-46.0) % Neutrophils # 13.2 H (1.3-7.7) k/uL Lymphocytes # 0.8 L (1.0-4.8) k/uL Sodium (137-145) mmol/L Potassium (3.5-5.1) mmol/L BUN (7-17) mg/dL Creatinine (0.52-1.04) mg/dL Glucose (74-99) mg/dL POC Glucose (mg/dL) 313 H 336 H (75-99) mg/dL Total Protein (6.3-8.2) g/dL Albumin (3.5-5.0) g/dL Assessment and Plan Plan: Assessment 1 acute COPD exacerbation secondary to acute purulent bronchitis, improving and the patient is still on a combination of bronchodilators, steroids and antibiotics 2 peripheral vascular disease 3 hypertension 4 hyperlipidemia 5 coronary artery disease please refer to the most recent cardiac catheterization report which showed an underlying coronary artery disease involving the RCA. 6 hyperkalemia, recovered 7 diabetes mellitus, with a component of steroid-induced hyperglycemia. 8 nicotine addiction/smoking. 9 chronic renal failure and there is an acute kidney injury with a creatinine is up to 1.7 Plan We'll continue the current treatment with the intention of increasing rectal Solu-Medrol as the patient's condition remains unchanged over the next 24 hours and utilizing insulin drip to control the blood sugar. I noted that raised in the blood sugars and the patient will need some IV fluids and I put her on half- normal saline today to 75 mL an hour. This will hopefully improve her creatinine and her underlying hyperglycemia. Smoking cessation counseling was done. We'll continue to follow.
[2016-06-20] MEDS: HYDROcodone/APAP 10-325MG 1 EACH TAB PO PRN (16:18)
[2016-06-20 17:02] LABS: Glucose,Whole Blood 451 mg/dL (75-99)
[2016-06-20] MEDS: INSULIN REGULAR 100 UNIT in SODIUM CHLORIDE 0.9% 100 ML IV SCH (17:24)
[2016-06-20] MEDS: SODIUM CHLORIDE 0.45% 1,000 ML IV SCH (17:25)
[2016-06-20 19:58] LABS: Glucose,Whole Blood 339 mg/dL (75-99)
[2016-06-20] MEDS: MORPHINE SULFATE 2 MG/ML SYRINGE IVP PRN (20:07)
[2016-06-20] MEDS ORDERED: methylPREDNISolone SOD SUCCI 40 MG/ML 1 ML VIAL IV SCH (21:00)
[2016-06-20] MEDS ORDERED: FAMOTIDINE 20 MG TAB PO SCH (21:00)
[2016-06-20 21:11] LABS: Glucose,Whole Blood 214 mg/dL (75-99)
[2016-06-20] MEDS: ATORVASTATIN 40 MG TAB PO SCH (22:28)
[2016-06-20 23:08] LABS: Glucose,Whole Blood 179 mg/dL (75-99)
[2016-06-21] MEDS: methylPREDNISolone SOD SUCCI 125 MG/2 ML VIAL IV SCH ×4 (00:10→17:52)
[2016-06-21 01:20] LABS: Glucose,Whole Blood 137 mg/dL (75-99)
[2016-06-21 03:15] LABS: Glucose,Whole Blood 129 mg/dL (75-99)
[2016-06-21] MEDS: INSULIN REGULAR 100 UNIT in SODIUM CHLORIDE 0.9% 100 ML IV SCH (03:25)
[2016-06-21] MEDS: MORPHINE SULFATE 2 MG/ML SYRINGE IVP PRN ×4 (03:32→17:05)
[2016-06-21 05:02] LABS: Glucose,Whole Blood 154 mg/dL (75-99)
[2016-06-21] MEDS: SODIUM CHLORIDE 0.45% 1,000 ML IV SCH ×4 (06:19→23:22)
[2016-06-21 07:05] LABS: Glucose,Whole Blood 225 mg/dL (75-99)
[2016-06-21] MEDS: hydrALAZINE HCL 50 MG TAB PO SCH ×3 (08:11→21:22)
[2016-06-21] MEDS: SERTRALINE 100 MG TAB PO SCH (08:13)
[2016-06-21] MEDS: guaiFENesin 600 MG TABLET.ER PO SCH ×2 (08:13→21:21)
[2016-06-21] MEDS: GABAPENTIN 400 MG CAP PO SCH ×3 (08:13→21:22)
[2016-06-21] MEDS: amLODIPine 10 MG TAB PO SCH (08:14)
[2016-06-21] MEDS: METOPROLOL TARTRATE 50 MG TAB PO SCH ×2 (08:14→21:22)
[2016-06-21] MEDS: ISOSORBIDE MONONITRATE ER 60 MG TAB.ER.24H PO SCH (08:14)
[2016-06-21] MEDS: CLOPIDOGREL 75 MG TAB PO SCH (08:14)
[2016-06-21] MEDS: CILOSTAZOL 100 MG TAB PO SCH ×2 (08:14→21:21)
[2016-06-21] MEDS: EZETIMIBE 10 MG TAB PO SCH (08:15)
[2016-06-21] MEDS: HEPARIN SODIUM,PORCINE 5,000 UNIT/ML 1 ML VIAL SQ SCH ×2 (08:15→21:21)
[2016-06-21] MEDS: INSULIN LISPRO (humaLOG) 300 UNIT/3 ML VIAL SQ SCH ×3 (08:20→17:50)
[2016-06-21] MEDS: IPRATROPIUM-ALBUTEROL 3 ML NEB INHALATION SCH ×4 (08:26→20:59)
[2016-06-21] MEDS: FORMOTEROL FUMARATE 20 MCG/2 ML NEBU INHALATION SCH ×2 (08:26→20:59)
[2016-06-21] MEDS: BUDESONIDE 1 MG/2 ML NEBU INHALATION SCH ×2 (08:26→20:59)
[2016-06-21 09:08] LABS: Calcium 8.7 mg/dL (8.4-10.2); Total Bilirubin 0.3 mg/dL (0.2-1.3)
[2016-06-21 09:59] LABS: Glucose,Whole Blood 296 mg/dL (75-99)
[2016-06-21] MEDS: AZITHROMYCIN 500 MG in SODIUM CHLORIDE 0.9% 250 ML IVPB SCH (10:25)
[2016-06-21] MEDS: HYDROcodone/APAP 10-325MG 1 EACH TAB PO PRN (10:32)
[2016-06-21 11:15] LABS: Glucose,Whole Blood 267 mg/dL (75-99)
--- NOTE | 2016-06-21 11:40 | P.PN ---
Subjective No events overnight. Objective - Vital Signs Vital signs: Vital Signs Temp 98.0 F 06/21/16 07:56 Pulse 88 06/21/16 08:47 Resp 16 06/21/16 07:56 BP 154/75 06/21/16 07:56 Pulse Ox 93 L 06/21/16 07:56 Intake & Output 06/20/16 06/21/16 06/21/16 18:59 06:59 18:59 Intake Total 1080 502.3 14.283 Output Total 150 Balance 930 502.3 14.283 Weight 69.5 kg Intake: Intake, IV Titration 102.3 14.283 Amount Insulin Regular 100 unit 102.3 14.283 In Sodium Chloride 0.9% 100 ml @ Titrate IV .Q0M [facility] Rx#:[id number] Oral 1080 400 Output: Urine 150 Other: Voiding Method Toilet Toilet # Voids 1 1 - Exam General: The patient is awake and alert, in no distress Eye: there is normal conjunctiva bilaterally. Neck: The neck is supple, there is no JVD. Cardiovascular: Normal S1-S2, no S3-S4, no murmurs. Respiratory: Lungs with mild wheezing all over the chest Gastrointestinal: Abdomen is soft, nontender Musculoskeletal: There is no pedal edema. Neurological:. Speech is normal. Skin: Skin is warm and dry - Labs CBC & Chem 7: 06/20/16 06:01 06/21/16 07:55 Labs: Abnormal Lab Results - Last 24 Hours (Table) 06/20/16 06/20/16 06/20/16 Range/Units 11:41 16:49 19:38 Carbon Dioxide (22-30) mmol/L BUN (7-17) mg/dL Creatinine (0.52-1.04) mg/dL Glucose (74-99) mg/dL POC Glucose (mg/dL) 336 H 451 H 339 H (75-99) mg/dL Total Protein (6.3-8.2) g/dL Albumin (3.5-5.0) g/dL 06/20/16 06/20/16 06/21/16 Range/Units 20:58 22:54 01:00 Carbon Dioxide (22-30) mmol/L BUN (7-17) mg/dL Creatinine (0.52-1.04) mg/dL Glucose (74-99) mg/dL POC Glucose (mg/dL) 214 H 179 H 137 H (75-99) mg/dL Total Protein (6.3-8.2) g/dL Albumin (3.5-5.0) g/dL 06/21/16 06/21/16 06/21/16 Range/Units 02:54 05:00 07:02 Carbon Dioxide (22-30) mmol/L BUN (7-17) mg/dL Creatinine (0.52-1.04) mg/dL Glucose (74-99) mg/dL POC Glucose (mg/dL) 129 H 154 H 225 H (75-99) mg/dL Total Protein (6.3-8.2) g/dL Albumin (3.5-5.0) g/dL 06/21/16 06/21/16 06/21/16 Range/Units 07:55 09:56 11:13 Carbon Dioxide 17 L (22-30) mmol/L BUN 56 H (7-17) mg/dL Creatinine 1.81 H (0.52-1.04) mg/dL Glucose 204 H (74-99) mg/dL POC Glucose (mg/dL) 296 H 267 H (75-99) mg/dL Total Protein 6.0 L (6.3-8.2) g/dL Albumin 3.4 L (3.5-5.0) g/dL Assessment and Plan Plan: #1 acute purulent bronchitis on azithromycin #2 acute exacerbation of chronic obstructive pulmonary disease on bronchodilators and IV steroids #3 peripheral vascular disease #4 hyperkalemia on presentation now resolved #5 underlying history of hypertension #6 underlying history of hyperlipidemia #7 Coronary artery disease managed medically #8 severe peripheral vascular occlusive disease #9 steroid-induced hyperglycemia requiring insulin drip Plan for today continue bronchodilators and IV steroids. Encouraged ambulation. Continue supportive care. Repeat lab work in the morning.
--- NOTE | 2016-06-21 11:42 | P.PN ---
Subjective Principal diagnosis: This is a 70-year-old female with history of known ischemic heart disease who was admitted to the hospital with complaints of cough and shortness of breath and atypical chest pains. Patient is being treated for tracheobronchitis. We' re asked to see the patient because of abnormal troponin values. Patient also developed some renal failure. The pattern of troponin elevation was not consistent with acute coronary syndrome. Patient is advised Max medical therapy. Patient is to have some atypical chest pain relieved with pain medications. Objective - Vital Signs Vital signs: Vital Signs Temp 98.0 F 06/21/16 07:56 Pulse 88 06/21/16 08:47 Resp 16 06/21/16 07:56 BP 154/75 06/21/16 07:56 Pulse Ox 93 L 06/21/16 07:56 Intake & Output 06/20/16 06/21/16 06/21/16 18:59 06:59 18:59 Intake Total 1080 502.3 14.283 Output Total 150 Balance 930 502.3 14.283 Weight 69.5 kg Intake: Intake, IV Titration 102.3 14.283 Amount Insulin Regular 100 unit 102.3 14.283 In Sodium Chloride 0.9% 100 ml @ Titrate IV .Q0M [facility] Rx#:[id number] Oral 1080 400 Output: Urine 150 Other: Voiding Method Toilet Toilet # Voids 1 1 - Exam GENERAL EXAM: Patient is alert and oriented and doesn't appear to be in any acute distress HEENT: Normocephalic. Normal reaction of pupils, equal size, normal range of extraocular motion. No erythema or exudates in the throat. NECK: No masses, no nuchal rigidity. CHEST: No chest wall deformity. LUNGS: Expiratory wheezing and rhonchi HEART: S1 and S2 normal with no audible mumurs or gallops. Regular rhythm, femorals equal on both sides.. ABDOMEN: No hepatosplenomegaly, normal bowel sounds, no guarding or rigidity. SKIN: No rashes CENTRAL NERVOUS SYSTEM: No focal deficits. EXTREMITIES: No cyanosis, clubbing or edema. - Labs CBC & Chem 7: 06/20/16 06:01 06/21/16 07:55 Labs: Abnormal Lab Results - Last 24 Hours (Table) 06/20/16 06/20/16 06/20/16 Range/Units 11:41 16:49 19:38 Carbon Dioxide (22-30) mmol/L BUN (7-17) mg/dL Creatinine (0.52-1.04) mg/dL Glucose (74-99) mg/dL POC Glucose (mg/dL) 336 H 451 H 339 H (75-99) mg/dL Total Protein (6.3-8.2) g/dL Albumin (3.5-5.0) g/dL 06/20/16 06/20/16 06/21/16 Range/Units 20:58 22:54 01:00 Carbon Dioxide (22-30) mmol/L BUN (7-17) mg/dL Creatinine (0.52-1.04) mg/dL Glucose (74-99) mg/dL POC Glucose (mg/dL) 214 H 179 H 137 H (75-99) mg/dL Total Protein (6.3-8.2) g/dL Albumin (3.5-5.0) g/dL 06/21/16 06/21/16 06/21/16 Range/Units 02:54 05:00 07:02 Carbon Dioxide (22-30) mmol/L BUN (7-17) mg/dL Creatinine (0.52-1.04) mg/dL Glucose (74-99) mg/dL POC Glucose (mg/dL) 129 H 154 H 225 H (75-99) mg/dL Total Protein (6.3-8.2) g/dL Albumin (3.5-5.0) g/dL 06/21/16 06/21/16 06/21/16 Range/Units 07:55 09:56 11:13 Carbon Dioxide 17 L (22-30) mmol/L BUN 56 H (7-17) mg/dL Creatinine 1.81 H (0.52-1.04) mg/dL Glucose 204 H (74-99) mg/dL POC Glucose (mg/dL) 296 H 267 H (75-99) mg/dL Total Protein 6.0 L (6.3-8.2) g/dL Albumin 3.4 L (3.5-5.0) g/dL Assessment and Plan Plan: This patient is mainly admitted with exacerbation of COPD and bronchitis. Her chest pains are atypical and cardiac enzymes studies are not consistent with acute coronary syndrome. The patient does have underlying ischemic heart disease with a critical lesion in the RCA but not felt to be good press of breath intervention and noncritical disease in the LAD and circumflex. A stress test was suggested for ruling out inducible ischemia. Patient should be scheduled to see Dr. Macias as an outpatient for further evaluation
--- NOTE | 2016-06-21 12:29 | P.PN ---
Subjective This is a 70-year-old female with known history of COPD along with history of CAD angina CVA diabetes DVT hyperlipidemia hypertension myocardial infarction DJD and pneumonia as well as peripheral artery disease. The patient was Hospital as for increased shortness of breath. She came into the emergency department complaining of shortness of breath. She's feeling better from that standpoint. She was apparently here for 10 days and then went home for 2 days and then came back. Her complaints include shortness of breath chest congestion cough and some phlegm production. Also having sinus type symptoms. The patient was admitted and was treated for an acute COPD exacerbation and today she is being seen in follow-up On 06/20/2016, the patient is being seen in follow-up. The patient is still having difficulty breathing. She is congested wheezing short of breath and she has not recovered. She is having difficulty with ambulation mainly due to shortness of breath. No hemoptysis. No pleurisy. She is on Zithromax is also on IV Solu-Medrol 40 mg every 12 hours and she has developed steroid-induced hyperglycemia. No insulin drip is being initiated yet. The patient is receiving long-acting insulin along with sliding scale coverage. On 06/21/2016 the patient is being seen in follow-up. Note that the patient was significantly bronchospastic and wheezy on yesterday's evaluation and based on that I put the patient on IV Solu-Medrol high dose and I also started on insulin drip for blood sugar control. I put this patient also on IV fluids for an underlying renal insufficiency that has developed over the past 24-48 hours. On today's evaluation, the patient is still having some difficulty breathing along with chest tightness and wheezing. I would say there is some modest improvement since yesterday. No chills. No fever. No other new complaints otherwise for now. Objective - Vital Signs Vital signs: Vital Signs Temp 98.0 F 06/21/16 07:56 Pulse 88 06/21/16 08:47 Resp 16 06/21/16 07:56 BP 154/75 06/21/16 07:56 Pulse Ox 93 L 06/21/16 07:56 Intake & Output 06/20/16 06/21/16 06/21/16 18:59 06:59 18:59 Intake Total 1080 502.3 14.283 Output Total 150 Balance 930 502.3 14.283 Weight 69.5 kg Intake: Intake, IV Titration 102.3 14.283 Amount Insulin Regular 100 unit 102.3 14.283 In Sodium Chloride 0.9% 100 ml @ Titrate IV .Q0M [facility] Rx#:[id number] Oral 1080 400 Output: Urine 150 Other: Voiding Method Toilet Toilet # Voids 1 2 - Exam Head exam was generally normal. There was no scleral icterus or corneal arcus. Mucous membranes were moist.Neck was supple and without jugular venous distension, thyromegaly, or carotid bruits. Carotids were easily palpable bilaterally. There was no adenopathy. Lung sounds are diminished bilaterally along with that there is diffuse expiratory wheezes throughout the lung pires.Cardiac exam revealed the PMI to be normally situated and sized. The rhythm was regular and no extrasystoles were noted during several minutes of auscultation. The first and second heart sounds were normal and physiologic splitting of the second heart sound was noted. There were no murmurs, rubs, clicks, or gallops.Abdominal exam revealed normal bowel sounds. The abdomen was soft, non-tender, and without masses, organomegaly, or appreciable enlargement of the abdominal aorta.Examination of the extremities revealed easily palpable radial, femoral and pedal pulses. There was no cyanosis, clubbing or edema. - Labs CBC & Chem 7: 06/20/16 06:01 06/21/16 07:55 Labs: Abnormal Lab Results - Last 24 Hours (Table) 06/20/16 06/20/16 06/20/16 Range/Units 16:49 19:38 20:58 Carbon Dioxide (22-30) mmol/L BUN (7-17) mg/dL Creatinine (0.52-1.04) mg/dL Glucose (74-99) mg/dL POC Glucose (mg/dL) 451 H 339 H 214 H (75-99) mg/dL Total Protein (6.3-8.2) g/dL Albumin (3.5-5.0) g/dL 06/20/16 06/21/16 06/21/16 Range/Units 22:54 01:00 02:54 Carbon Dioxide (22-30) mmol/L BUN (7-17) mg/dL Creatinine (0.52-1.04) mg/dL Glucose (74-99) mg/dL POC Glucose (mg/dL) 179 H 137 H 129 H (75-99) mg/dL Total Protein (6.3-8.2) g/dL Albumin (3.5-5.0) g/dL 06/21/16 06/21/16 06/21/16 Range/Units 05:00 07:02 07:55 Carbon Dioxide 17 L (22-30) mmol/L BUN 56 H (7-17) mg/dL Creatinine 1.81 H (0.52-1.04) mg/dL Glucose 204 H (74-99) mg/dL POC Glucose (mg/dL) 154 H 225 H (75-99) mg/dL Total Protein 6.0 L (6.3-8.2) g/dL Albumin 3.4 L (3.5-5.0) g/dL 06/21/16 06/21/16 Range/Units 09:56 11:13 Carbon Dioxide (22-30) mmol/L BUN (7-17) mg/dL Creatinine (0.52-1.04) mg/dL Glucose (74-99) mg/dL POC Glucose (mg/dL) 296 H 267 H (75-99) mg/dL Total Protein (6.3-8.2) g/dL Albumin (3.5-5.0) g/dL Assessment and Plan Plan: Assessment 1 acute COPD exacerbation secondary to acute purulent bronchitis, improving and the patient is still on a combination of bronchodilators, steroids and antibiotics On 06/21/2016 the patient is still having trouble breathing however she is little bit better compared to yesterday and I'm inclined to continue the high- dose steroids and bronchodilators for now until her COPD further stabilizes. 2 peripheral vascular disease 3 hypertension 4 hyperlipidemia 5 coronary artery disease please refer to the most recent cardiac catheterization report which showed an underlying coronary artery disease involving the RCA. 6 hyperkalemia, recovered 7 diabetes mellitus, with a component of steroid-induced hyperglycemia. The patient is currently on insulin drip for blood sugar control 8 nicotine addiction/smoking. 9 chronic renal failure and there is an acute kidney injury with a creatinine is up to 1.7 and the patient is receiving IV fluids and we anticipate some drop in the creatinine knowing that this was probably a prerenal effect secondary to hyperglycemia induced diuresis. Plan We'll continue the current treatment . We'll use high-dose steroids. We'll use insulin to control the blood sugar. Continue the bronchodilators. Monitor renal function. Anticipate further improvement over the next 24 hours. We'll continue to follow
[2016-06-21 12:59] LABS: Glucose,Whole Blood 170 mg/dL (75-99)
[2016-06-21] MEDS: PANTOPRAZOLE 40 MG TABLET PO SCH ×2 (13:17→17:50)
[2016-06-21 14:58] LABS: Glucose,Whole Blood 240 mg/dL (75-99)
[2016-06-21 17:05] LABS: Glucose,Whole Blood 247 mg/dL (75-99)
[2016-06-21] MEDS ORDERED: SODIUM CHLORIDE 0.65% NASAL SPRAY 44 ML BTL NASAL PRN (17:56)
[2016-06-21 18:58] LABS: Glucose,Whole Blood 232 mg/dL (75-99)
[2016-06-21 21:11] LABS: Glucose,Whole Blood 182 mg/dL (75-99)
[2016-06-21] MEDS: ATORVASTATIN 40 MG TAB PO SCH (21:21)
[2016-06-21] MEDS: HYDROmorphone 1 MG/ML 1 ML SYRINGE IVP PRN (21:23)
[2016-06-21 23:06] LABS: Glucose,Whole Blood 145 mg/dL (75-99)
[2016-06-22] MEDS: methylPREDNISolone SOD SUCCI 125 MG/2 ML VIAL IV SCH ×4 (00:36→17:05)
[2016-06-22 01:03] LABS: Glucose,Whole Blood 132 mg/dL (75-99)
[2016-06-22 02:06] LABS: Glucose,Whole Blood 159 mg/dL (75-99)
[2016-06-22] MEDS: HYDROmorphone 1 MG/ML 1 ML SYRINGE IVP PRN ×4 (03:49→16:58)
[2016-06-22 04:01] LABS: Glucose,Whole Blood 201 mg/dL (75-99)
[2016-06-22] MEDS: HYDROcodone/APAP 10-325MG 1 EACH TAB PO PRN ×2 (04:55→22:26)
[2016-06-22] MEDS: FLUTICASONE 50MCG/SPRAY NASAL 16GM EA NOSTRIL PRN ×2 (05:42→18:55)
[2016-06-22 05:58] LABS: Glucose,Whole Blood 213 mg/dL (75-99)
[2016-06-22] MEDS: BUDESONIDE 1 MG/2 ML NEBU INHALATION SCH ×2 (07:42→20:02)
[2016-06-22] MEDS: IPRATROPIUM-ALBUTEROL 3 ML NEB INHALATION SCH ×4 (07:42→20:02)
[2016-06-22] MEDS: FORMOTEROL FUMARATE 20 MCG/2 ML NEBU INHALATION SCH ×2 (07:42→20:02)
[2016-06-22 08:00] LABS: Calcium 8.6 mg/dL (8.4-10.2); Potassium 4.8 mmol/L (3.5-5.1); Total Bilirubin 0.4 mg/dL (0.2-1.3); Total Protein 5.9 g/dL (6.3-8.2)
[2016-06-22] MEDS: METOPROLOL TARTRATE 50 MG TAB PO SCH ×2 (08:30→22:35)
[2016-06-22] MEDS: amLODIPine 10 MG TAB PO SCH (08:31)
[2016-06-22] MEDS: GABAPENTIN 400 MG CAP PO SCH ×3 (08:31→22:29)
[2016-06-22] MEDS: hydrALAZINE HCL 50 MG TAB PO SCH ×2 (08:31→17:01)
[2016-06-22 08:33] LABS: Glucose,Whole Blood 166 mg/dL (75-99)
[2016-06-22] MEDS: guaiFENesin 600 MG TABLET.ER PO SCH ×2 (08:33→22:28)
[2016-06-22] MEDS: SERTRALINE 100 MG TAB PO SCH (08:34)
[2016-06-22] MEDS: ISOSORBIDE MONONITRATE ER 60 MG TAB.ER.24H PO SCH (08:34)
[2016-06-22] MEDS: EZETIMIBE 10 MG TAB PO SCH (08:34)
[2016-06-22] MEDS: CILOSTAZOL 100 MG TAB PO SCH ×2 (08:34→22:28)
[2016-06-22] MEDS: INSULIN LISPRO (humaLOG) 300 UNIT/3 ML VIAL SQ SCH ×4 (08:41→22:32)
[2016-06-22] MEDS: PANTOPRAZOLE 40 MG TABLET PO SCH ×2 (08:41→17:06)
[2016-06-22] MEDS: CLOPIDOGREL 75 MG TAB PO SCH (08:42)
[2016-06-22] MEDS: HEPARIN SODIUM,PORCINE 5,000 UNIT/ML 1 ML VIAL SQ SCH ×2 (08:43→22:25)
[2016-06-22 10:08] LABS: Glucose,Whole Blood 207 mg/dL (75-99)
[2016-06-22 12:08] LABS: Glucose,Whole Blood 210 mg/dL (75-99)
--- NOTE | 2016-06-22 12:23 | P.PN ---
Subjective Patient is having multiple nonspecific concerns today. She said that the pain medication is not working and she is requesting to increase the dose or the frequency. She is also asking us to use different antibiotic as she does not believe the current one being used is effective. Objective - Vital Signs Vital signs: Vital Signs Temp 98.0 F 06/22/16 07:00 Pulse 92 06/22/16 07:00 Resp 18 06/22/16 07:00 BP 176/82 06/22/16 07:00 Pulse Ox 92 L 06/22/16 07:00 Intake & Output 06/21/16 06/22/16 06/22/16 18:59 06:59 18:59 Intake Total 324.321 3732.758 489.525 Balance 343.672 1286.758 489.525 Intake: IV 600 1426 Sodium Chloride 0.45% 1, 600 1426 000 ml @ 75 mls/hr IV . [id number] [facility] Rx#:[id number] Intake, IV Titration 25.758 34.758 9.525 Amount Insulin Regular 100 unit 25.758 34.758 9.525 In Sodium Chloride 0.9% 100 ml @ Titrate IV .Q0M [facility] Rx#:[id number] Oral 1000 480 Other: Voiding Method Toilet Toilet Toilet # Voids 2 2 - Exam General: The patient is awake and alert, in no distress Eye: there is normal conjunctiva bilaterally. Neck: The neck is supple, there is no JVD. Cardiovascular: Normal S1-S2, no S3-S4, no murmurs. Respiratory: Lungs with mild wheezing all over the chest Gastrointestinal: Abdomen is soft, nontender Musculoskeletal: There is no pedal edema. Neurological:. Speech is normal. Skin: Skin is warm and dry - Labs CBC & Chem 7: 06/20/16 06:01 06/22/16 07:15 Labs: Abnormal Lab Results - Last 24 Hours (Table) 06/21/16 06/21/16 06/21/16 Range/Units 12:56 14:56 17:03 Chloride (98-107) mmol/L Carbon Dioxide (22-30) mmol/L BUN (7-17) mg/dL Creatinine (0.52-1.04) mg/dL Glucose (74-99) mg/dL POC Glucose (mg/dL) 170 H 240 H 247 H (75-99) mg/dL AST (14-36) U/L Troponin I (0.000-0.034) ng/mL Total Protein (6.3-8.2) g/dL Albumin (3.5-5.0) g/dL 06/21/16 06/21/16 06/21/16 Range/Units 18:56 19:26 21:06 Chloride (98-107) mmol/L Carbon Dioxide (22-30) mmol/L BUN (7-17) mg/dL Creatinine (0.52-1.04) mg/dL Glucose (74-99) mg/dL POC Glucose (mg/dL) 232 H 182 H (75-99) mg/dL AST (14-36) U/L Troponin I 0.063 H* (0.000-0.034) ng/mL Total Protein (6.3-8.2) g/dL Albumin (3.5-5.0) g/dL 06/21/16 06/22/16 06/22/16 Range/Units 23:03 01:00 02:03 Chloride (98-107) mmol/L Carbon Dioxide (22-30) mmol/L BUN (7-17) mg/dL Creatinine (0.52-1.04) mg/dL Glucose (74-99) mg/dL POC Glucose (mg/dL) 145 H 132 H 159 H (75-99) mg/dL AST (14-36) U/L Troponin I (0.000-0.034) ng/mL Total Protein (6.3-8.2) g/dL Albumin (3.5-5.0) g/dL 06/22/16 06/22/16 06/22/16 Range/Units 03:59 05:55 07:15 Chloride 108 H (98-107) mmol/L Carbon Dioxide 16 L (22-30) mmol/L BUN 64 H (7-17) mg/dL Creatinine 1.65 H (0.52-1.04) mg/dL Glucose 167 H (74-99) mg/dL POC Glucose (mg/dL) 201 H 213 H (75-99) mg/dL AST 13 L (14-36) U/L Troponin I (0.000-0.034) ng/mL Total Protein 5.9 L (6.3-8.2) g/dL Albumin 3.2 L (3.5-5.0) g/dL 06/22/16 06/22/16 06/22/16 Range/Units 08:31 10:06 12:07 Chloride (98-107) mmol/L Carbon Dioxide (22-30) mmol/L BUN (7-17) mg/dL Creatinine (0.52-1.04) mg/dL Glucose (74-99) mg/dL POC Glucose (mg/dL) 166 H 207 H 210 H (75-99) mg/dL AST (14-36) U/L Troponin I (0.000-0.034) ng/mL Total Protein (6.3-8.2) g/dL Albumin (3.5-5.0) g/dL Assessment and Plan Plan: #1 acute purulent bronchitis on azithromycin IV #2 acute exacerbation of chronic obstructive pulmonary disease on bronchodilators and IV steroids #3 peripheral vascular disease #4 hyperkalemia on presentation now resolved #5 underlying history of hypertension #6 underlying history of hyperlipidemia #7 Coronary artery disease managed medically #8 severe peripheral vascular occlusive disease #9 steroid-induced hyperglycemia requiring insulin drip Plan for today continue bronchodilators and IV steroids as directed by pulmonology. Encouraged ambulation. Continue supportive care. Repeat lab work in the morning. Counseled regarding coping strategy with her pain.
[2016-06-22] MEDS: AZITHROMYCIN 500 MG TAB PO SCH (13:15)
[2016-06-22] MEDS: SODIUM CHLORIDE 0.45% 1,000 ML IV SCH ×2 (13:21)
[2016-06-22 14:08] LABS: Glucose,Whole Blood 193 mg/dL (75-99)
[2016-06-22] MEDS: INSULIN REGULAR 100 UNIT in SODIUM CHLORIDE 0.9% 100 ML IV SCH (14:49)
[2016-06-22 16:20] LABS: Glucose,Whole Blood 186 mg/dL (75-99)
--- NOTE | 2016-06-22 17:31 | P.PN ---
Subjective This is a 70-year-old female with known history of COPD along with history of CAD angina CVA diabetes DVT hyperlipidemia hypertension myocardial infarction DJD and pneumonia as well as peripheral artery disease. The patient was hospitalized for increased shortness of breath. She came into the emergency department complaining of shortness of breath. The patient was admitted and was treated for an acute COPD exacerbation. She is seen again today 06/22/2016 in follow-up. She is resting fairly comfortably in bed. Her main complaint is that of insomnia. She does continue to have dyspnea on minimal exertion. She is not feeling quite back to her baseline. She has required IV Solu-Medrol along with the insulin drip for blood glucose control. Is currently at 2 units per hour. She has been slow to progress. She is maintaining in the low 90s on 2 L/m per nasal cannula. She's been afebrile. Blood and urine cultures revealed no growth to date. Objective - Vital Signs Vital signs: Vital Signs Temp 97.9 F 06/22/16 15:00 Pulse 102 H 06/22/16 16:35 Resp 16 06/22/16 15:00 BP 148/66 06/22/16 15:00 Pulse Ox 96 06/22/16 16:17 Intake & Output 06/21/16 06/22/16 06/22/16 18:59 06:59 18:59 Intake Total 794.425 5445.758 505.058 Balance 308.589 5579.758 505.058 Intake: IV 600 1426 Sodium Chloride 0.45% 1, 600 1426 000 ml @ 75 mls/hr IV . [id number] [facility] Rx#:[id number] Intake, IV Titration 25.758 34.758 25.058 Amount Insulin Regular 100 unit 25.758 34.758 25.058 In Sodium Chloride 0.9% 100 ml @ Titrate IV .Q0M [facility] Rx#:[id number] Oral 1000 480 Other: Voiding Method Toilet Toilet Toilet # Voids 2 2 - Exam GENERAL EXAM: Alert, comfortable in no apparent distress. HEAD: Normocephalic. EYES: Normal reaction of pupils, equal size. NOSE: Clear with pink turbinates. THROAT: No erythema or exudates. NECK: No masses, no JVD. CHEST: No chest wall deformity. LUNGS: Equal air entry with end expiratory wheeze. Diminished. CVS: S1 and S2 normal with no audible murmurs, regular rhythm. ABDOMEN: No hepatosplenomegaly, normal bowel sounds, no guarding or rigidity. SPINE: No scoliosis or deformity SKIN: No rashes CENTRAL NERVOUS SYSTEM: No focal deficits, tone is normal in all 4 extremities. Extremities: There is no significant peripheral edema. No clubbing, no cyanosis. Peripheral pulses are intact. - Labs CBC & Chem 7: 06/20/16 06:01 06/22/16 07:15 Labs: Abnormal Lab Results - Last 24 Hours (Table) 06/21/16 06/21/16 06/21/16 Range/Units 18:56 19:26 21:06 Chloride (98-107) mmol/L Carbon Dioxide (22-30) mmol/L BUN (7-17) mg/dL Creatinine (0.52-1.04) mg/dL Glucose (74-99) mg/dL POC Glucose (mg/dL) 232 H 182 H (75-99) mg/dL AST (14-36) U/L Troponin I 0.063 H* (0.000-0.034) ng/mL Total Protein (6.3-8.2) g/dL Albumin (3.5-5.0) g/dL 06/21/16 06/22/16 06/22/16 Range/Units 23:03 01:00 02:03 Chloride (98-107) mmol/L Carbon Dioxide (22-30) mmol/L BUN (7-17) mg/dL Creatinine (0.52-1.04) mg/dL Glucose (74-99) mg/dL POC Glucose (mg/dL) 145 H 132 H 159 H (75-99) mg/dL AST (14-36) U/L Troponin I (0.000-0.034) ng/mL Total Protein (6.3-8.2) g/dL Albumin (3.5-5.0) g/dL 06/22/16 06/22/16 06/22/16 Range/Units 03:59 05:55 07:15 Chloride 108 H (98-107) mmol/L Carbon Dioxide 16 L (22-30) mmol/L BUN 64 H (7-17) mg/dL Creatinine 1.65 H (0.52-1.04) mg/dL Glucose 167 H (74-99) mg/dL POC Glucose (mg/dL) 201 H 213 H (75-99) mg/dL AST 13 L (14-36) U/L Troponin I (0.000-0.034) ng/mL Total Protein 5.9 L (6.3-8.2) g/dL Albumin 3.2 L (3.5-5.0) g/dL 06/22/16 06/22/16 06/22/16 Range/Units 08:31 10:06 12:07 Chloride (98-107) mmol/L Carbon Dioxide (22-30) mmol/L BUN (7-17) mg/dL Creatinine (0.52-1.04) mg/dL Glucose (74-99) mg/dL POC Glucose (mg/dL) 166 H 207 H 210 H (75-99) mg/dL AST (14-36) U/L Troponin I (0.000-0.034) ng/mL Total Protein (6.3-8.2) g/dL Albumin (3.5-5.0) g/dL 06/22/16 06/22/16 Range/Units 14:06 16:18 Chloride (98-107) mmol/L Carbon Dioxide (22-30) mmol/L BUN (7-17) mg/dL Creatinine (0.52-1.04) mg/dL Glucose (74-99) mg/dL POC Glucose (mg/dL) 193 H 186 H (75-99) mg/dL AST (14-36) U/L Troponin I (0.000-0.034) ng/mL Total Protein (6.3-8.2) g/dL Albumin (3.5-5.0) g/dL Assessment and Plan Plan: Assessment 1 acute COPD exacerbation secondary to acute purulent bronchitis, improving and the patient is still on a combination of bronchodilators, steroids and antibiotics 2 peripheral vascular disease 3 hypertension 4 hyperlipidemia 5 coronary artery disease please refer to the most recent cardiac catheterization report which showed an underlying coronary artery disease involving the RCA. 6 hyperkalemia, recovered 7 diabetes mellitus, with a component of steroid-induced hyperglycemia. The patient is currently on insulin drip for blood sugar control 8 nicotine addiction/smoking. 9 chronic renal failure and there is an acute kidney injury with a creatinine is up to 1.7 and the patient is receiving IV fluids and we anticipate some drop in the creatinine knowing that this was probably a prerenal effect secondary to hyperglycemia induced diuresis. Plan: The patient was seen and evaluated by Dr. Camejo. We will offer Ambien to help with her insomnia. Continue with her other pulmonary medications. We will increase her activity as tolerated. We'll continue to follow make further recommendations based on her clinical status.
[2016-06-22 18:13] LABS: Glucose,Whole Blood 221 mg/dL (75-99)
[2016-06-22 20:45] LABS: Glucose,Whole Blood 260 mg/dL (75-99)
[2016-06-22 21:56] LABS: Glucose,Whole Blood 219 mg/dL (75-99)
[2016-06-22] MEDS: ATORVASTATIN 40 MG TAB PO SCH (22:28)
[2016-06-23 00:12] LABS: Glucose,Whole Blood 237 mg/dL (75-99)
[2016-06-23] MEDS: methylPREDNISolone SOD SUCCI 125 MG/2 ML VIAL IV SCH ×3 (00:47→12:14)
[2016-06-23] MEDS: ZOLPIDEM 10 MG TAB PO SCH ×2 (00:56→03:28)
[2016-06-23] MEDS: hydrALAZINE HCL 50 MG TAB PO SCH ×3 (00:59→16:22)
[2016-06-23 02:25] LABS: Glucose,Whole Blood 123 mg/dL (75-99)
[2016-06-23] MEDS: HYDROmorphone 1 MG/ML 1 ML SYRINGE IVP PRN ×3 (02:41→12:13)
[2016-06-23 03:23] LABS: Glucose,Whole Blood 117 mg/dL (75-99)
[2016-06-23 04:28] LABS: Glucose,Whole Blood 156 mg/dL (75-99)
[2016-06-23] MEDS: SODIUM CHLORIDE 0.45% 1,000 ML IV SCH ×2 (05:53→09:03)
[2016-06-23 06:07] LABS: Glucose,Whole Blood 198 mg/dL (75-99)
[2016-06-23 08:10] LABS: Glucose,Whole Blood 189 mg/dL (75-99)
[2016-06-23] MEDS: PANTOPRAZOLE 40 MG TABLET PO SCH (08:44)
[2016-06-23] MEDS: SERTRALINE 100 MG TAB PO SCH (08:44)
[2016-06-23] MEDS: AZITHROMYCIN 500 MG TAB PO SCH (08:44)
[2016-06-23] MEDS: HEPARIN SODIUM,PORCINE 5,000 UNIT/ML 1 ML VIAL SQ SCH ×2 (08:45→21:18)
[2016-06-23] MEDS: amLODIPine 10 MG TAB PO SCH (08:45)
[2016-06-23] MEDS: METOPROLOL TARTRATE 50 MG TAB PO SCH ×2 (08:45→21:22)
[2016-06-23] MEDS: ISOSORBIDE MONONITRATE ER 60 MG TAB.ER.24H PO SCH (08:45)
[2016-06-23] MEDS: CILOSTAZOL 100 MG TAB PO SCH ×2 (08:45→21:17)
[2016-06-23] MEDS: GABAPENTIN 400 MG CAP PO SCH ×3 (08:46→21:24)
[2016-06-23] MEDS: guaiFENesin 600 MG TABLET.ER PO SCH ×2 (08:46→21:18)
[2016-06-23] MEDS: CLOPIDOGREL 75 MG TAB PO SCH (08:46)
[2016-06-23] MEDS: EZETIMIBE 10 MG TAB PO SCH (08:46)
[2016-06-23] MEDS: INSULIN LISPRO (humaLOG) 300 UNIT/3 ML VIAL SQ SCH ×3 (08:50→18:08)
[2016-06-23] MEDS: BUDESONIDE 1 MG/2 ML NEBU INHALATION SCH ×2 (09:10→20:18)
[2016-06-23] MEDS: IPRATROPIUM-ALBUTEROL 3 ML NEB INHALATION SCH ×4 (09:10→20:18)
[2016-06-23] MEDS: FORMOTEROL FUMARATE 20 MCG/2 ML NEBU INHALATION SCH ×2 (09:10→20:18)
[2016-06-23 09:20] LABS: Basophils % (A) 0 %; CHCM 32.2; Eosinophils % (A) 0 %; HCT 30.3 % (34.0-46.0); HDW 2.49; HGB 9.6 gm/dL (11.4-16.0); Luc # (Auto) 0.09; Luc % (Auto) 1; Lymphocytes # (A) 0.8 k/uL (1.0-4.8); Lymphocytes % (A) 7 %; MCH 30.8 pg (25.0-35.0); MCHC 31.9 g/dL (31.0-37.0); MCV 96.6 fL (80.0-100.0); Mean Platelet Volume 6.9; Monocytes # (A) 0.4 k/uL (0-1.0); Monocytes % (A) 3 %; Neutrophils # (A) 9.7 k/uL (1.3-7.7); Neutrophils % (A) 88 %; RBC 3.13 m/uL (3.80-5.40); RDW 14.4 % (11.5-15.5); WBC (Perox) 12.02
[2016-06-23] MEDS: HYDROcodone/APAP 10-325MG 1 EACH TAB PO PRN ×3 (09:37→20:53)
[2016-06-23 09:46] LABS: Calcium 8.7 mg/dL (8.4-10.2); Magnesium 1.8 mg/dL (1.6-2.3); Potassium 5.4 mmol/L (3.5-5.1)
[2016-06-23 10:25] LABS: Glucose,Whole Blood 201 mg/dL (75-99)
[2016-06-23 12:19] LABS: Glucose,Whole Blood 231 mg/dL (75-99)
[2016-06-23] MEDS ORDERED: SODIUM POLYSTYRENE SULFONATE 15 GM/60 ML BOTTLE PO STA (14:19)
--- NOTE | 2016-06-23 14:20 | P.PN ---
Subjective Patient is doing well today. She remained on insulin drip. No events overnight. Objective - Vital Signs Vital signs: Vital Signs Temp 98 F 06/23/16 07:00 Pulse 85 06/23/16 09:36 Resp 16 06/23/16 07:00 BP 160/70 06/23/16 07:00 Pulse Ox 94 L 06/23/16 07:00 Intake & Output 06/22/16 06/23/16 06/23/16 18:59 06:59 18:59 Intake Total 1057.058 729.141 15.525 Output Total 150 Balance 1057.058 579.141 15.525 Intake: IV 550 500 Sodium Chloride 0.45% 1, 550 500 000 ml @ 50 mls/hr IV . Q20H [facility] Rx#:[id number] Intake, IV Titration 27.058 29.141 15.525 Amount Insulin Regular 100 unit 27.058 29.141 15.525 In Sodium Chloride 0.9% 100 ml @ Titrate IV .Q0M [facility] Rx#:[id number] Oral 480 200 Output: Urine 150 Other: Voiding Method Toilet Toilet Toilet # Voids 1 3 1 # Bowel Movements 1 - Exam General: The patient is awake and alert, in no distress Eye: there is normal conjunctiva bilaterally. Neck: The neck is supple, there is no JVD. Cardiovascular: Normal S1-S2, no S3-S4, no murmurs. Respiratory: Lungs are clear to auscultation bilaterally Gastrointestinal: Abdomen is soft, nontender Musculoskeletal: There is no pedal edema. Neurological:. Speech is normal. Skin: Skin is warm and dry - Labs CBC & Chem 7: 06/23/16 08:20 06/23/16 08:20 Labs: Abnormal Lab Results - Last 24 Hours (Table) 06/22/16 06/22/16 06/22/16 Range/Units 16:18 18:10 20:43 WBC (3.8-10.6) k/uL RBC (3.80-5.40) m/uL Hgb (11.4-16.0) gm/dL Hct (34.0-46.0) % Neutrophils # (1.3-7.7) k/uL Lymphocytes # (1.0-4.8) k/uL Potassium (3.5-5.1) mmol/L Carbon Dioxide (22-30) mmol/L BUN (7-17) mg/dL Creatinine (0.52-1.04) mg/dL Glucose (74-99) mg/dL POC Glucose (mg/dL) 186 H 221 H 260 H (75-99) mg/dL 06/22/16 06/23/16 06/23/16 Range/Units 21:54 00:10 02:23 WBC (3.8-10.6) k/uL RBC (3.80-5.40) m/uL Hgb (11.4-16.0) gm/dL Hct (34.0-46.0) % Neutrophils # (1.3-7.7) k/uL Lymphocytes # (1.0-4.8) k/uL Potassium (3.5-5.1) mmol/L Carbon Dioxide (22-30) mmol/L BUN (7-17) mg/dL Creatinine (0.52-1.04) mg/dL Glucose (74-99) mg/dL POC Glucose (mg/dL) 219 H 237 H 123 H (75-99) mg/dL 06/23/16 06/23/16 06/23/16 Range/Units 03:20 04:23 06:05 WBC (3.8-10.6) k/uL RBC (3.80-5.40) m/uL Hgb (11.4-16.0) gm/dL Hct (34.0-46.0) % Neutrophils # (1.3-7.7) k/uL Lymphocytes # (1.0-4.8) k/uL Potassium (3.5-5.1) mmol/L Carbon Dioxide (22-30) mmol/L BUN (7-17) mg/dL Creatinine (0.52-1.04) mg/dL Glucose (74-99) mg/dL POC Glucose (mg/dL) 117 H 156 H 198 H (75-99) mg/dL 06/23/16 06/23/16 06/23/16 Range/Units 08:07 08:20 08:20 WBC 11.0 H (3.8-10.6) k/uL RBC 3.13 L (3.80-5.40) m/uL Hgb 9.6 L (11.4-16.0) gm/dL Hct 30.3 L (34.0-46.0) % Neutrophils # 9.7 H (1.3-7.7) k/uL Lymphocytes # 0.8 L (1.0-4.8) k/uL Potassium 5.4 H (3.5-5.1) mmol/L Carbon Dioxide 20 L (22-30) mmol/L BUN 63 H (7-17) mg/dL Creatinine 1.63 H (0.52-1.04) mg/dL Glucose 176 H (74-99) mg/dL POC Glucose (mg/dL) 189 H (75-99) mg/dL 06/23/16 06/23/16 Range/Units 10:12 12:16 WBC (3.8-10.6) k/uL RBC (3.80-5.40) m/uL Hgb (11.4-16.0) gm/dL Hct (34.0-46.0) % Neutrophils # (1.3-7.7) k/uL Lymphocytes # (1.0-4.8) k/uL Potassium (3.5-5.1) mmol/L Carbon Dioxide (22-30) mmol/L BUN (7-17) mg/dL Creatinine (0.52-1.04) mg/dL Glucose (74-99) mg/dL POC Glucose (mg/dL) 201 H 231 H (75-99) mg/dL Assessment and Plan Plan: #1 acute purulent bronchitis on azithromycin IV #2 acute exacerbation of chronic obstructive pulmonary disease on bronchodilators and IV steroids #3 peripheral vascular disease #4 hyperkalemia on presentation now resolved #5 underlying history of hypertension #6 underlying history of hyperlipidemia #7 Coronary artery disease managed medically #8 severe peripheral vascular occlusive disease #9 steroid-induced hyperglycemia requiring insulin drip Plan for today: Discontinue IV pain medicine and resume her home dose of [place]. Discontinue IV steroids and switch to oral prednisone. Encourage oral hydration. Discontinue IV fluids. Give 1 dose of Kayexalate for potassium of 5.6. Continue bronchodilators and steroids as directed by pulmonology. Encouraged ambulation. Continue supportive care. Repeat lab work in the morning. Counseled regarding coping strategy with her pain. Plan to discharge back home tomorrow.
[2016-06-23 14:32] LABS: Glucose,Whole Blood 260 mg/dL (75-99)
[2016-06-23] MEDS: FLUTICASONE 50MCG/SPRAY NASAL 16GM EA NOSTRIL PRN (14:44)
[2016-06-23] MEDS: INSULIN REGULAR 100 UNIT in SODIUM CHLORIDE 0.9% 100 ML IV SCH (14:45)
--- NOTE | 2016-06-23 15:40 | P.PN ---
Subjective This is a 70-year-old female with known history of COPD along with history of CAD angina CVA diabetes DVT hyperlipidemia hypertension myocardial infarction DJD and pneumonia as well as peripheral artery disease. The patient was hospitalized for increased shortness of breath. She came into the emergency department complaining of shortness of breath. The patient was admitted and was treated for an acute COPD exacerbation. She is seen again today 06/22/2016 in follow-up. She is resting fairly comfortably in bed. Her main complaint is that of insomnia. She does continue to have dyspnea on minimal exertion. She is not feeling quite back to her baseline. She has required IV Solu-Medrol along with the insulin drip for blood glucose control. Is currently at 2 units per hour. She has been slow to progress. She is maintaining in the low 90s on 2 L/m per nasal cannula. She's been afebrile. Blood and urine cultures revealed no growth to date. She is seen again 06/23/2016 in follow-up. She is doing better today as compared to yesterday. She does have some shortness of breath with exertion but otherwise improved. He is maintaining good O2 saturations in the mid 90s on room air. She is afebrile. Her steroids have been decreased and she is still requiring insulin drip at 4 units per hour. Objective - Vital Signs Vital signs: Vital Signs Temp 98 F 06/23/16 07:00 Pulse 85 06/23/16 09:36 Resp 16 06/23/16 07:00 BP 160/70 06/23/16 07:00 Pulse Ox 94 L 06/23/16 07:00 Intake & Output 06/22/16 06/23/16 06/23/16 18:59 06:59 18:59 Intake Total 1057.058 729.141 17.525 Output Total 150 Balance 1057.058 579.141 17.525 Intake: IV 550 500 Sodium Chloride 0.45% 1, 550 500 000 ml @ 50 mls/hr IV . Q20H [facility] Rx#:[id number] Intake, IV Titration 27.058 29.141 17.525 Amount Insulin Regular 100 unit 27.058 29.141 17.525 In Sodium Chloride 0.9% 100 ml @ Titrate IV .Q0M [facility] Rx#:[id number] Oral 480 200 Output: Urine 150 Other: Voiding Method Toilet Toilet Toilet # Voids 1 3 1 # Bowel Movements 1 - Exam GENERAL EXAM: Alert, comfortable in no apparent distress. HEAD: Normocephalic. EYES: Normal reaction of pupils, equal size. NOSE: Clear with pink turbinates. THROAT: No erythema or exudates. NECK: No masses, no JVD. CHEST: No chest wall deformity. LUNGS: Equal air entry with end expiratory wheeze. Diminished. CVS: S1 and S2 normal with no audible murmurs, regular rhythm. ABDOMEN: No hepatosplenomegaly, normal bowel sounds, no guarding or rigidity. SPINE: No scoliosis or deformity SKIN: No rashes CENTRAL NERVOUS SYSTEM: No focal deficits, tone is normal in all 4 extremities. Extremities: There is no significant peripheral edema. No clubbing, no cyanosis. Peripheral pulses are intact. - Labs CBC & Chem 7: 06/23/16 08:20 06/23/16 08:20 Labs: Abnormal Lab Results - Last 24 Hours (Table) 06/22/16 06/22/16 06/22/16 Range/Units 16:18 18:10 20:43 WBC (3.8-10.6) k/uL RBC (3.80-5.40) m/uL Hgb (11.4-16.0) gm/dL Hct (34.0-46.0) % Neutrophils # (1.3-7.7) k/uL Lymphocytes # (1.0-4.8) k/uL Potassium (3.5-5.1) mmol/L Carbon Dioxide (22-30) mmol/L BUN (7-17) mg/dL Creatinine (0.52-1.04) mg/dL Glucose (74-99) mg/dL POC Glucose (mg/dL) 186 H 221 H 260 H (75-99) mg/dL 06/22/16 06/23/16 06/23/16 Range/Units 21:54 00:10 02:23 WBC (3.8-10.6) k/uL RBC (3.80-5.40) m/uL Hgb (11.4-16.0) gm/dL Hct (34.0-46.0) % Neutrophils # (1.3-7.7) k/uL Lymphocytes # (1.0-4.8) k/uL Potassium (3.5-5.1) mmol/L Carbon Dioxide (22-30) mmol/L BUN (7-17) mg/dL Creatinine (0.52-1.04) mg/dL Glucose (74-99) mg/dL POC Glucose (mg/dL) 219 H 237 H 123 H (75-99) mg/dL 06/23/16 06/23/16 06/23/16 Range/Units 03:20 04:23 06:05 WBC (3.8-10.6) k/uL RBC (3.80-5.40) m/uL Hgb (11.4-16.0) gm/dL Hct (34.0-46.0) % Neutrophils # (1.3-7.7) k/uL Lymphocytes # (1.0-4.8) k/uL Potassium (3.5-5.1) mmol/L Carbon Dioxide (22-30) mmol/L BUN (7-17) mg/dL Creatinine (0.52-1.04) mg/dL Glucose (74-99) mg/dL POC Glucose (mg/dL) 117 H 156 H 198 H (75-99) mg/dL 06/23/16 06/23/16 06/23/16 Range/Units 08:07 08:20 08:20 WBC 11.0 H (3.8-10.6) k/uL RBC 3.13 L (3.80-5.40) m/uL Hgb 9.6 L (11.4-16.0) gm/dL Hct 30.3 L (34.0-46.0) % Neutrophils # 9.7 H (1.3-7.7) k/uL Lymphocytes # 0.8 L (1.0-4.8) k/uL Potassium 5.4 H (3.5-5.1) mmol/L Carbon Dioxide 20 L (22-30) mmol/L BUN 63 H (7-17) mg/dL Creatinine 1.63 H (0.52-1.04) mg/dL Glucose 176 H (74-99) mg/dL POC Glucose (mg/dL) 189 H (75-99) mg/dL 06/23/16 06/23/16 06/23/16 Range/Units 10:12 12:16 14:12 WBC (3.8-10.6) k/uL RBC (3.80-5.40) m/uL Hgb (11.4-16.0) gm/dL Hct (34.0-46.0) % Neutrophils # (1.3-7.7) k/uL Lymphocytes # (1.0-4.8) k/uL Potassium (3.5-5.1) mmol/L Carbon Dioxide (22-30) mmol/L BUN (7-17) mg/dL Creatinine (0.52-1.04) mg/dL Glucose (74-99) mg/dL POC Glucose (mg/dL) 201 H 231 H 260 H (75-99) mg/dL Assessment and Plan Plan: Assessment 1 acute COPD exacerbation secondary to acute purulent bronchitis, improving and the patient is still on a combination of bronchodilators, steroids and antibiotics 2 peripheral vascular disease 3 hypertension 4 hyperlipidemia 5 coronary artery disease please refer to the most recent cardiac catheterization report which showed an underlying coronary artery disease involving the RCA. 6 hyperkalemia, recovered 7 diabetes mellitus, with a component of steroid-induced hyperglycemia. The patient is currently on insulin drip for blood sugar control 8 nicotine addiction/smoking. 9 chronic renal failure and there is an acute kidney injury with a creatinine is up to 1.7 and the patient is receiving IV fluids and we anticipate some drop in the creatinine knowing that this was probably a prerenal effect secondary to hyperglycemia induced diuresis. Plan: The patient was seen and evaluated by Dr. Camejo. She did sleep better well receiving Ambien. Continue with her other pulmonary medications. Need for home oxygen at this time. We will increase her activity as tolerated. Discharge planning is in place. We'll continue to follow make further recommendations based on her clinical status.
[2016-06-23 16:33] LABS: Glucose,Whole Blood 218 mg/dL (75-99)
[2016-06-23 18:07] LABS: Glucose,Whole Blood 218 mg/dL (75-99)
[2016-06-23 20:19] LABS: Glucose,Whole Blood 310 mg/dL (75-99)
[2016-06-23] MEDS ORDERED: methylPREDNISolone SOD SUCCI 40 MG/ML 1 ML VIAL IV SCH (21:00)
[2016-06-23] MEDS: ATORVASTATIN 40 MG TAB PO SCH (21:22)
[2016-06-23 22:05] LABS: Glucose,Whole Blood 268 mg/dL (75-99)
[2016-06-24] MEDS: ZOLPIDEM 10 MG TAB PO SCH ×2 (00:07→22:31)
[2016-06-24] MEDS: hydrALAZINE HCL 50 MG TAB PO SCH ×4 (00:07→21:19)
[2016-06-24 00:13] LABS: Glucose,Whole Blood 180 mg/dL (75-99)
[2016-06-24 01:57] LABS: Glucose,Whole Blood 149 mg/dL (75-99)
[2016-06-24 03:58] LABS: Glucose,Whole Blood 167 mg/dL (75-99)
[2016-06-24 06:22] LABS: Glucose,Whole Blood 153 mg/dL (75-99)
[2016-06-24] MEDS: FORMOTEROL FUMARATE 20 MCG/2 ML NEBU INHALATION SCH ×2 (07:19→20:45)
[2016-06-24] MEDS: IPRATROPIUM-ALBUTEROL 3 ML NEB INHALATION SCH ×4 (07:19→20:45)
[2016-06-24] MEDS: BUDESONIDE 1 MG/2 ML NEBU INHALATION SCH ×2 (07:19→20:45)
[2016-06-24] MEDS: CLOPIDOGREL 75 MG TAB PO SCH (07:31)
[2016-06-24] MEDS: PANTOPRAZOLE 40 MG TABLET PO SCH (07:31)
[2016-06-24] MEDS: EZETIMIBE 10 MG TAB PO SCH (07:31)
[2016-06-24] MEDS: amLODIPine 10 MG TAB PO SCH (07:31)
[2016-06-24] MEDS: CILOSTAZOL 100 MG TAB PO SCH ×2 (07:31→20:15)
[2016-06-24] MEDS: GABAPENTIN 400 MG CAP PO SCH ×3 (07:32→21:19)
[2016-06-24] MEDS: guaiFENesin 600 MG TABLET.ER PO SCH ×2 (07:33→21:19)
[2016-06-24] MEDS: HEPARIN SODIUM,PORCINE 5,000 UNIT/ML 1 ML VIAL SQ SCH ×2 (07:33→20:14)
[2016-06-24] MEDS: predniSONE 20 MG TAB PO SCH (07:34)
[2016-06-24] MEDS: ISOSORBIDE MONONITRATE ER 60 MG TAB.ER.24H PO SCH (07:34)
[2016-06-24] MEDS: SERTRALINE 100 MG TAB PO SCH (07:34)
[2016-06-24] MEDS: METOPROLOL TARTRATE 50 MG TAB PO SCH ×2 (07:35→20:15)
[2016-06-24] MEDS: HYDROcodone/APAP 10-325MG 1 EACH TAB PO PRN ×3 (07:35→20:14)
[2016-06-24] MEDS: INSULIN LISPRO (humaLOG) 300 UNIT/3 ML VIAL SQ SCH ×4 (07:36→20:18)
[2016-06-24 07:39] LABS: Basophils # (A) 0.1 k/uL (0-0.2); Basophils % (A) 1 %; CH 31.2; CHCM 32.7; Eosinophils % (A) 0 %; HCT 31.7 % (34.0-46.0); HDW 2.55; HGB 9.8 gm/dL (11.4-16.0); Luc # (Auto) 0.14; Luc % (Auto) 1; Lymphocytes # (A) 1.5 k/uL (1.0-4.8); Lymphocytes % (A) 13 %; MCH 29.7 pg (25.0-35.0); MCV 95.7 fL (80.0-100.0); Mean Platelet Volume 7.8; Monocytes # (A) 0.9 k/uL (0-1.0); Monocytes % (A) 8 %; Neutrophils % (A) 77 %; RBC 3.32 m/uL (3.80-5.40); RDW 14.4 % (11.5-15.5); WBC 11.6 k/uL (3.8-10.6); WBC (Perox) 12.92
[2016-06-24 07:49] LABS: Magnesium 1.8 mg/dL (1.6-2.3); Potassium 4.5 mmol/L (3.5-5.1)
[2016-06-24 08:13] LABS: Glucose,Whole Blood 163 mg/dL (75-99)
[2016-06-24] MEDS: FLUTICASONE 50MCG/SPRAY NASAL 16GM EA NOSTRIL PRN ×2 (08:43→21:21)
[2016-06-24 10:00] LABS: Glucose,Whole Blood 182 mg/dL (75-99)
[2016-06-24 12:02] LABS: Glucose,Whole Blood 192 mg/dL (75-99)
[2016-06-24] MEDS: AZITHROMYCIN 500 MG TAB PO SCH (12:21)
--- NOTE | 2016-06-24 14:59 | P.PN ---
Subjective Patient still complaining of some wheezing and cough. She denies any chest pain. Denies a nausea or vomiting. Denies any bowel movement changes or urinary symptoms. She was able to work with physical therapy and do a short walk in the hallway. Objective - Vital Signs Vital signs: Vital Signs Temp 98.5 F 06/24/16 14:22 Pulse 77 06/24/16 14:22 Resp 20 06/24/16 14:22 BP 131/66 06/24/16 14:22 Pulse Ox 95 06/24/16 14:22 Intake & Output 06/23/16 06/24/16 06/24/16 18:59 06:59 18:59 Intake Total 27.258 690.983 6.391 Balance 27.258 690.983 6.391 Intake: IV 80 Sodium Chloride 0.45% 1, 80 000 ml @ 50 mls/hr IV . Q20H [facility] Rx#:[id number] Intake, IV Titration 27.258 190.983 6.391 Amount Insulin Regular 100 unit 27.258 30.983 6.391 In Sodium Chloride 0.9% 100 ml @ Titrate IV .Q0M [facility] Rx#:[id number] Sodium Chloride 0.45% 1, 160 000 ml @ 50 mls/hr IV . Q20H [facility] Rx#:[id number] Oral 420 Other: Voiding Method Toilet Toilet Toilet # Voids 1 2 2 - Exam Head normocephalic Neck supple Lungs wheezing bilaterally Heart regular rate and rhythm S1-S2, no rub or gallop Abdomen is soft nontender nondistended positive bowel sounds no hepatosplenomegaly Extremities no edema Neuro alert and orientated to 3 - Labs CBC & Chem 7: 06/24/16 07:11 06/24/16 07:11 Labs: Abnormal Lab Results - Last 24 Hours (Table) 06/23/16 06/23/16 06/23/16 Range/Units 16:13 18:04 20:18 WBC (3.8-10.6) k/uL RBC (3.80-5.40) m/uL Hgb (11.4-16.0) gm/dL Hct (34.0-46.0) % Neutrophils # (1.3-7.7) k/uL Chloride (98-107) mmol/L Carbon Dioxide (22-30) mmol/L BUN (7-17) mg/dL Creatinine (0.52-1.04) mg/dL Glucose (74-99) mg/dL POC Glucose (mg/dL) 218 H 218 H 310 H (75-99) mg/dL 06/23/16 06/24/16 06/24/16 Range/Units 22:02 00:01 01:55 WBC (3.8-10.6) k/uL RBC (3.80-5.40) m/uL Hgb (11.4-16.0) gm/dL Hct (34.0-46.0) % Neutrophils # (1.3-7.7) k/uL Chloride (98-107) mmol/L Carbon Dioxide (22-30) mmol/L BUN (7-17) mg/dL Creatinine (0.52-1.04) mg/dL Glucose (74-99) mg/dL POC Glucose (mg/dL) 268 H 180 H 149 H (75-99) mg/dL 06/24/16 06/24/16 06/24/16 Range/Units 03:55 06:11 07:11 WBC 11.6 H (3.8-10.6) k/uL RBC 3.32 L (3.80-5.40) m/uL Hgb 9.8 L (11.4-16.0) gm/dL Hct 31.7 L (34.0-46.0) % Neutrophils # 9.0 H (1.3-7.7) k/uL Chloride (98-107) mmol/L Carbon Dioxide (22-30) mmol/L BUN (7-17) mg/dL Creatinine (0.52-1.04) mg/dL Glucose (74-99) mg/dL POC Glucose (mg/dL) 167 H 153 H (75-99) mg/dL 06/24/16 06/24/16 06/24/16 Range/Units 07:11 08:09 09:58 WBC (3.8-10.6) k/uL RBC (3.80-5.40) m/uL Hgb (11.4-16.0) gm/dL Hct (34.0-46.0) % Neutrophils # (1.3-7.7) k/uL Chloride 109 H (98-107) mmol/L Carbon Dioxide 20 L (22-30) mmol/L BUN 61 H (7-17) mg/dL Creatinine 1.68 H (0.52-1.04) mg/dL Glucose 146 H (74-99) mg/dL POC Glucose (mg/dL) 163 H 182 H (75-99) mg/dL 06/24/16 Range/Units 11:59 WBC (3.8-10.6) k/uL RBC (3.80-5.40) m/uL Hgb (11.4-16.0) gm/dL Hct (34.0-46.0) % Neutrophils # (1.3-7.7) k/uL Chloride (98-107) mmol/L Carbon Dioxide (22-30) mmol/L BUN (7-17) mg/dL Creatinine (0.52-1.04) mg/dL Glucose (74-99) mg/dL POC Glucose (mg/dL) 192 H (75-99) mg/dL Microbiology - Last 24 Hours (Table) 06/24/16 07:30 Gram Stain - Preliminary Sputum Sputum Culture - Preliminary Assessment and Plan Plan: #1 acute purulent bronchitis on azithromycin #2 acute exacerbation of chronic obstructive pulmonary disease on bronchodilators and oral prednisone. #3 peripheral vascular disease #4 hyperkalemia improved with Kayexalate #5 underlying history of hypertension #6 underlying history of hyperlipidemia #7 Coronary artery disease managed medically #8 severe peripheral vascular occlusive disease #9 steroid-induced hyperglycemia requiring insulin drip #10 acute on chronic kidney disease, stage IIIB. Creatinine is at 1.68.
[2016-06-24 17:01] LABS: Glucose,Whole Blood 306 mg/dL (75-99)
[2016-06-24] MEDS ORDERED: INSULIN NPH/REG INSULIN 70/30 300 UNIT/3 ML VIAL SQ SCH (17:30)
--- NOTE | 2016-06-24 17:43 | P.PN ---
Subjective This is a 70-year-old female with known history of COPD along with history of CAD angina CVA diabetes DVT hyperlipidemia hypertension myocardial infarction DJD and pneumonia as well as peripheral artery disease. The patient was hospitalized for increased shortness of breath. She came into the emergency department complaining of shortness of breath. The patient was admitted and was treated for an acute COPD exacerbation. She is seen again today 06/22/2016 in follow-up. She is resting fairly comfortably in bed. Her main complaint is that of insomnia. She does continue to have dyspnea on minimal exertion. She is not feeling quite back to her baseline. She has required IV Solu-Medrol along with the insulin drip for blood glucose control. Is currently at 2 units per hour. She has been slow to progress. She is maintaining in the low 90s on 2 L/m per nasal cannula. She's been afebrile. Blood and urine cultures revealed no growth to date. She is seen again 06/23/2016 in follow-up. She is doing better today as compared to yesterday. She does have some shortness of breath with exertion but otherwise improved. She is maintaining good O2 saturations in the mid 90s on room air. She is afebrile. Her steroids have been decreased and she is still requiring insulin drip at 4 units per hour. She is seen again today 06/24/2016 in follow-up on the regular medical floor. She continues to progress daily. She is having less and less shortness of breath with minimal activity. She continues with an occasional cough. She is sleeping better at bedtime. Her steroids have been decreased. She is currently off the insulin drip. He continues to maintain good O2 saturations in the 90s on room air. Objective - Vital Signs Vital signs: Vital Signs Temp 98.5 F 06/24/16 14:22 Pulse 80 06/24/16 15:42 Resp 20 06/24/16 14:22 BP 131/66 06/24/16 14:22 Pulse Ox 95 06/24/16 14:22 Intake & Output 06/23/16 06/24/16 06/24/16 18:59 06:59 18:59 Intake Total 27.258 690.983 6.391 Balance 27.258 690.983 6.391 Intake: IV 80 Sodium Chloride 0.45% 1, 80 000 ml @ 50 mls/hr IV . Q20H [facility] Rx#:[id number] Intake, IV Titration 27.258 190.983 6.391 Amount Insulin Regular 100 unit 27.258 30.983 6.391 In Sodium Chloride 0.9% 100 ml @ Titrate IV .Q0M [facility] Rx#:[id number] Sodium Chloride 0.45% 1, 160 000 ml @ 50 mls/hr IV . Q20H [facility] Rx#:[id number] Oral 420 Other: Voiding Method Toilet Toilet Toilet # Voids 1 2 2 - Exam GENERAL EXAM: Alert, comfortable in no apparent distress. HEAD: Normocephalic. EYES: Normal reaction of pupils, equal size. NOSE: Clear with pink turbinates. THROAT: No erythema or exudates. NECK: No masses, no JVD. CHEST: No chest wall deformity. LUNGS: Equal air entry with end expiratory wheeze. Diminished. CVS: S1 and S2 normal with no audible murmurs, regular rhythm. ABDOMEN: No hepatosplenomegaly, normal bowel sounds, no guarding or rigidity. SPINE: No scoliosis or deformity SKIN: No rashes CENTRAL NERVOUS SYSTEM: No focal deficits, tone is normal in all 4 extremities. Extremities: There is no significant peripheral edema. No clubbing, no cyanosis. Peripheral pulses are intact. - Labs CBC & Chem 7: 06/24/16 07:11 06/24/16 07:11 Labs: Abnormal Lab Results - Last 24 Hours (Table) 06/23/16 06/23/16 06/23/16 Range/Units 18:04 20:18 22:02 WBC (3.8-10.6) k/uL RBC (3.80-5.40) m/uL Hgb (11.4-16.0) gm/dL Hct (34.0-46.0) % Neutrophils # (1.3-7.7) k/uL Chloride (98-107) mmol/L Carbon Dioxide (22-30) mmol/L BUN (7-17) mg/dL Creatinine (0.52-1.04) mg/dL Glucose (74-99) mg/dL POC Glucose (mg/dL) 218 H 310 H 268 H (75-99) mg/dL 06/24/16 06/24/16 06/24/16 Range/Units 00:01 01:55 03:55 WBC (3.8-10.6) k/uL RBC (3.80-5.40) m/uL Hgb (11.4-16.0) gm/dL Hct (34.0-46.0) % Neutrophils # (1.3-7.7) k/uL Chloride (98-107) mmol/L Carbon Dioxide (22-30) mmol/L BUN (7-17) mg/dL Creatinine (0.52-1.04) mg/dL Glucose (74-99) mg/dL POC Glucose (mg/dL) 180 H 149 H 167 H (75-99) mg/dL 06/24/16 06/24/16 06/24/16 Range/Units 06:11 07:11 07:11 WBC 11.6 H (3.8-10.6) k/uL RBC 3.32 L (3.80-5.40) m/uL Hgb 9.8 L (11.4-16.0) gm/dL Hct 31.7 L (34.0-46.0) % Neutrophils # 9.0 H (1.3-7.7) k/uL Chloride 109 H (98-107) mmol/L Carbon Dioxide 20 L (22-30) mmol/L BUN 61 H (7-17) mg/dL Creatinine 1.68 H (0.52-1.04) mg/dL Glucose 146 H (74-99) mg/dL POC Glucose (mg/dL) 153 H (75-99) mg/dL 06/24/16 06/24/16 06/24/16 Range/Units 08:09 09:58 11:59 WBC (3.8-10.6) k/uL RBC (3.80-5.40) m/uL Hgb (11.4-16.0) gm/dL Hct (34.0-46.0) % Neutrophils # (1.3-7.7) k/uL Chloride (98-107) mmol/L Carbon Dioxide (22-30) mmol/L BUN (7-17) mg/dL Creatinine (0.52-1.04) mg/dL Glucose (74-99) mg/dL POC Glucose (mg/dL) 163 H 182 H 192 H (75-99) mg/dL 06/24/16 Range/Units 16:57 WBC (3.8-10.6) k/uL RBC (3.80-5.40) m/uL Hgb (11.4-16.0) gm/dL Hct (34.0-46.0) % Neutrophils # (1.3-7.7) k/uL Chloride (98-107) mmol/L Carbon Dioxide (22-30) mmol/L BUN (7-17) mg/dL Creatinine (0.52-1.04) mg/dL Glucose (74-99) mg/dL POC Glucose (mg/dL) 306 H (75-99) mg/dL Microbiology - Last 24 Hours (Table) 06/24/16 07:30 Gram Stain - Preliminary Sputum Sputum Culture - Preliminary Assessment and Plan Plan: Assessment 1 acute COPD exacerbation secondary to acute purulent bronchitis, improving and the patient is still on a combination of bronchodilators, steroids and antibiotics 2 peripheral vascular disease 3 hypertension 4 hyperlipidemia 5 coronary artery disease please refer to the most recent cardiac catheterization report which showed an underlying coronary artery disease involving the RCA. 6 hyperkalemia, recovered 7 diabetes mellitus, with a component of steroid-induced hyperglycemia. The patient is currently on insulin drip for blood sugar control 8 nicotine addiction/smoking. 9 chronic renal failure and there is an acute kidney injury with a creatinine is up to 1.7 and the patient is receiving IV fluids and we anticipate some drop in the creatinine knowing that this was probably a prerenal effect secondary to hyperglycemia induced diuresis. Plan: The patient was seen and evaluated by Dr. Camejo. She is cleared for discharge from the pulmonary standpoint. Discharge planning is in place as there is some concerns regarding her current living arrangements. She has a guardian who is making decisions and recommendations. She'll be continued on bronchodilators, prednisone taper complete her course of azithromycin.
[2016-06-24] MEDS: ATORVASTATIN 40 MG TAB PO SCH (20:15)
[2016-06-24 20:17] LABS: Glucose,Whole Blood 432 mg/dL (75-99)
[2016-06-24 21:33] VITALS: RESP 16
[2016-06-24 22:15] LABS: Glucose,Whole Blood 282 mg/dL (75-99)
[2016-06-25 07:21] LABS: Glucose,Whole Blood 110 mg/dL (75-99)
[2016-06-25] MEDS ORDERED: INSULIN NPH/REG INSULIN 70/30 300 UNIT/3 ML VIAL SQ SCH (07:30)
[2016-06-25] MEDS: FORMOTEROL FUMARATE 20 MCG/2 ML NEBU INHALATION SCH (07:44)
[2016-06-25] MEDS: IPRATROPIUM-ALBUTEROL 3 ML NEB INHALATION SCH ×2 (07:44→11:12)
[2016-06-25] MEDS: BUDESONIDE 1 MG/2 ML NEBU INHALATION SCH (07:44)
[2016-06-25 07:55] VITALS: BP 188/80; TEMP 98.5
[2016-06-25 08:03] LABS: Basophils % (A) 0 %; CH 31.3; CHCM 32.9; Eosinophils % (A) 0 %; HCT 31.1 % (34.0-46.0); HDW 2.45; HGB 9.7 gm/dL (11.4-16.0); Luc # (Auto) 0.15; Luc % (Auto) 1; Lymphocytes # (A) 1.8 k/uL (1.0-4.8); Lymphocytes % (A) 16 %; MCH 29.9 pg (25.0-35.0); MCHC 31.2 g/dL (31.0-37.0); MCV 95.7 fL (80.0-100.0); Mean Platelet Volume 6.8; Monocytes # (A) 0.9 k/uL (0-1.0); Monocytes % (A) 8 %; Neutrophils # (A) 8.1 k/uL (1.3-7.7); Neutrophils % (A) 74 %; RBC 3.25 m/uL (3.80-5.40); RDW 14.5 % (11.5-15.5); WBC 10.9 k/uL (3.8-10.6); WBC (Perox) 11.37
[2016-06-25 08:17] LABS: Calcium 8.8 mg/dL (8.4-10.2); Magnesium 1.7 mg/dL (1.6-2.3)
[2016-06-25] MEDS: HYDROcodone/APAP 10-325MG 1 EACH TAB PO PRN (09:22)
[2016-06-25] MEDS: INSULIN LISPRO (humaLOG) 300 UNIT/3 ML VIAL SQ SCH ×2 (09:26→13:22)
[2016-06-25] MEDS: PANTOPRAZOLE 40 MG TABLET PO SCH (09:29)
[2016-06-25] MEDS: GABAPENTIN 400 MG CAP PO SCH (09:30)
[2016-06-25] MEDS: CLOPIDOGREL 75 MG TAB PO SCH (09:30)
[2016-06-25] MEDS: EZETIMIBE 10 MG TAB PO SCH (09:30)
[2016-06-25] MEDS: CILOSTAZOL 100 MG TAB PO SCH (09:30)
[2016-06-25] MEDS: amLODIPine 10 MG TAB PO SCH (09:30)
[2016-06-25] MEDS: hydrALAZINE HCL 50 MG TAB PO SCH (09:31)
[2016-06-25] MEDS: HEPARIN SODIUM,PORCINE 5,000 UNIT/ML 1 ML VIAL SQ SCH (09:31)
[2016-06-25] MEDS: guaiFENesin 600 MG TABLET.ER PO SCH (09:31)
[2016-06-25] MEDS: predniSONE 20 MG TAB PO SCH (09:32)
[2016-06-25] MEDS: ISOSORBIDE MONONITRATE ER 60 MG TAB.ER.24H PO SCH (09:32)
[2016-06-25] MEDS: METOPROLOL TARTRATE 50 MG TAB PO SCH (09:32)
[2016-06-25] MEDS: SERTRALINE 100 MG TAB PO SCH (09:32)
[2016-06-25 11:14] VITALS: PULSE 92
[2016-06-25 11:28] VITALS: BMI 29.9
[2016-06-25 11:50] LABS: Glucose,Whole Blood 165 mg/dL (75-99)
[2016-06-25] MEDS ORDERED: HYDROcodone/APAP 10-325MG 1 EACH TAB PO PRN (12:07)
--- NOTE | 2016-06-25 13:02 | P.PN ---
Subjective This is a 70-year-old female with known history of COPD along with history of CAD angina CVA diabetes DVT hyperlipidemia hypertension myocardial infarction DJD and pneumonia as well as peripheral artery disease. The patient was hospitalized for increased shortness of breath. She came into the emergency department complaining of shortness of breath. The patient was admitted and was treated for an acute COPD exacerbation. She is seen again today 06/22/2016 in follow-up. She is resting fairly comfortably in bed. Her main complaint is that of insomnia. She does continue to have dyspnea on minimal exertion. She is not feeling quite back to her baseline. She has required IV Solu-Medrol along with the insulin drip for blood glucose control. Is currently at 2 units per hour. She has been slow to progress. She is maintaining in the low 90s on 2 L/m per nasal cannula. She's been afebrile. Blood and urine cultures revealed no growth to date. She is seen again 06/23/2016 in follow-up. She is doing better today as compared to yesterday. She does have some shortness of breath with exertion but otherwise improved. She is maintaining good O2 saturations in the mid 90s on room air. She is afebrile. Her steroids have been decreased and she is still requiring insulin drip at 4 units per hour. She is seen again today 06/24/2016 in follow-up on the regular medical floor. She continues to progress daily. She is having less and less shortness of breath with minimal activity. She continues with an occasional cough. She is sleeping better at bedtime. Her steroids have been decreased. She is currently off the insulin drip. He continues to maintain good O2 saturations in the 90s on room air. The patient is seen again today for 06/25/2016 in follow-up. She continues to improve daily. She denies any worsening shortness of breath, cough or congestion. She is maintaining good O2 saturations in the mid to upper 90s on room air. Currently afebrile. No significant leukocytosis. Her renal function has improved. Current creatinine 1.40. Her main concern is that of pain control for her chronic pain issues. Objective - Vital Signs Vital signs: Vital Signs Temp 98.5 F 06/25/16 07:00 Pulse 92 06/25/16 11:22 Resp 16 06/25/16 07:00 BP 188/80 06/25/16 07:00 Pulse Ox 94 L 06/25/16 07:00 Intake & Output 06/24/16 06/25/16 06/25/16 18:59 06:59 18:59 Intake Total 6.391 100 Balance 6.391 100 Weight 69.5 kg Intake: Intake, IV Titration 6.391 Amount Insulin Regular 100 unit 6.391 In Sodium Chloride 0.9% 100 ml @ Titrate IV .Q0M [facility] Rx#:[id number] Oral 100 Other: Voiding Method Toilet Toilet Toilet # Voids 2 1 - Exam GENERAL EXAM: Alert, comfortable in no apparent distress. HEAD: Normocephalic. EYES: Normal reaction of pupils, equal size. NOSE: Clear with pink turbinates. THROAT: No erythema or exudates. NECK: No masses, no JVD. CHEST: No chest wall deformity. LUNGS: Equal air entry with end expiratory wheeze. Diminished. CVS: S1 and S2 normal with no audible murmurs, regular rhythm. ABDOMEN: No hepatosplenomegaly, normal bowel sounds, no guarding or rigidity. SPINE: No scoliosis or deformity SKIN: No rashes CENTRAL NERVOUS SYSTEM: No focal deficits, tone is normal in all 4 extremities. Extremities: There is no significant peripheral edema. No clubbing, no cyanosis. Peripheral pulses are intact. - Labs CBC & Chem 7: 06/25/16 07:15 06/25/16 07:15 Labs: Abnormal Lab Results - Last 24 Hours (Table) 06/24/16 06/24/16 06/24/16 Range/Units 16:57 20:12 22:14 WBC (3.8-10.6) k/uL RBC (3.80-5.40) m/uL Hgb (11.4-16.0) gm/dL Hct (34.0-46.0) % Neutrophils # (1.3-7.7) k/uL Chloride (98-107) mmol/L BUN (7-17) mg/dL Creatinine (0.52-1.04) mg/dL Glucose (74-99) mg/dL POC Glucose (mg/dL) 306 H 432 H 282 H (75-99) mg/dL 06/25/16 06/25/16 06/25/16 Range/Units 07:08 07:15 07:15 WBC 10.9 H (3.8-10.6) k/uL RBC 3.25 L (3.80-5.40) m/uL Hgb 9.7 L (11.4-16.0) gm/dL Hct 31.1 L (34.0-46.0) % Neutrophils # 8.1 H (1.3-7.7) k/uL Chloride 109 H (98-107) mmol/L BUN 52 H (7-17) mg/dL Creatinine 1.40 H (0.52-1.04) mg/dL Glucose 105 H (74-99) mg/dL POC Glucose (mg/dL) 110 H (75-99) mg/dL 06/25/16 Range/Units 11:48 WBC (3.8-10.6) k/uL RBC (3.80-5.40) m/uL Hgb (11.4-16.0) gm/dL Hct (34.0-46.0) % Neutrophils # (1.3-7.7) k/uL Chloride (98-107) mmol/L BUN (7-17) mg/dL Creatinine (0.52-1.04) mg/dL Glucose (74-99) mg/dL POC Glucose (mg/dL) 165 H (75-99) mg/dL Microbiology - Last 24 Hours (Table) 06/24/16 07:30 Gram Stain - Preliminary Sputum Sputum Culture - Preliminary Assessment and Plan Plan: Assessment 1 Acute COPD exacerbation secondary to acute purulent bronchitis, improving and the patient is still on a combination of bronchodilators, steroids and antibiotics 2 Peripheral vascular disease 3 Hypertension 4 Hyperlipidemia 5 Coronary artery disease please refer to the most recent cardiac catheterization report which showed an underlying coronary artery disease involving the RCA. 6 Hyperkalemia, recovered 7 Diabetes mellitus, with a component of steroid-induced hyperglycemia. 8 Nicotine addiction/smoking. 9 Chronic renal failure and there is an acute kidney injury which has improved. Current creatinine 1.40. Plan: The patient was seen and evaluated by Dr. Camejo. She has been cleared for discharge from the pulmonary standpoint. Discharge planning is in place as there is some concerns regarding her current living arrangements. She has a guardian who is making decisions and recommendations. In the interim, we'll continue her on bronchodilators, prednisone taper complete her course of azithromycin. She remains on heparin for DVT prophylaxis and Protonix for GI prophylaxis. We'll increase her activity as tolerated.
[2016-06-25] MEDS: AZITHROMYCIN 500 MG TAB PO SCH (13:22)
--- NOTE | 2016-06-25 13:27 | P.DS ---
Providers Date of admission: 06/19/16 13:09 Expected date of discharge: 06/25/16 Attending physician: Jenna Pereira Primary care physician: Mallory Hernandez Patient Condition at Discharge: Fair Plan - Discharge Summary New Discharge Prescriptions: Azithromycin [Zithromax] 500 mg PO DAILY@1200 #4 tab oxyCODONE HCL/ACETAMINOPHEN [Percocet 10-325 mg] 1 tab PO Q6HR PRN #10 tab PRN Reason: Pain predniSONE 40 mg PO DAILY #30 tab Discharge Medication List Albuterol Inhaler [Ventolin Hfa Inhaler] 2 puff INHALATION RT-Q6H PRN 06/02/16 [ History] Cilostazol [Pletal] 100 mg PO BID 06/02/16 [History] Clopidogrel [Plavix] 75 mg PO DAILY 06/02/16 [History] Ezetimibe [Zetia] 10 mg PO DAILY 06/02/16 [History] Fluticasone Nasal [place] [Flonase Nasal [place]] 2 spr EA NOSTRIL DAILY PRN [History] Gabapentin 800 mg PO TID 06/02/16 [History] Sertraline HCl [Zoloft] 100 mg PO DAILY 06/02/16 [History] Insulin NPH/Reg Insulin 70/30 [humuLIN 70/30 VIAL] 20 unit SQ AC-SUPPER #3 vial 06/14/16 [Rx] Insulin NPH/Reg Insulin 70/30 [humuLIN 70/30 VIAL] 28 unit SQ AC-BRKFST #3 vial 06/14/16 [Rx] Isosorbide Mononitrate ER [Imdur] 60 mg PO DAILY #30 tab 06/14/16 [Rx] Metoprolol Tartrate [Lopressor] 50 mg PO BID #60 tab 06/14/16 [Rx] amLODIPine [Norvasc] 10 mg PO DAILY #30 tablet 06/14/16 [Rx] Atorvastatin [Lipitor] 40 mg PO HS tab 06/25/16 [Rx] Azithromycin [Zithromax] 500 mg PO DAILY@1200 #4 tab 06/25/16 [Rx] Ipratropium-Albuterol Nebulize [Duoneb 0.5 mg-3 mg/3 ml Soln] 3 ml INHALATION RT -QID PRN #0 ampul.neb 02/04/17 [Rx] hydrALAZINE HCL [Apresoline] 50 mg PO TID tab 06/25/16 [Rx] oxyCODONE HCL/ACETAMINOPHEN [Percocet 10-325 mg] 1 tab PO Q6HR PRN #10 tab 06/25 [Rx] predniSONE 40 mg PO DAILY #30 tab 06/25/16 [Rx] Follow up Appointment(s)/Referral(s): Mallory Hernandez MD [Primary Care Provider] - 1-2 days Discharge Disposition: TRANSFER TO SNF/ECF
== END 2016-06-25 15:15 | DRG 191 ==
LOC: EC 12:04 → 6SEL 16:04 → OBSVTOIN 06-19 13:09 → 5MS5E 06-20 19:21
PROVIDERS: ADMIT Internal Medicine; ATTEND Internal Medicine
DX: J44.0 Chronic obstructive pulmonary disease with (acute) lower respiratory infection (principal); N17.9 Acute kidney failure, unspecified; Q60.0 Renal agenesis, unilateral; E11.22 Type 2 diabetes mellitus with diabetic chronic kidney disease; E11.51 Type 2 diabetes mellitus with diabetic peripheral angiopathy without gangrene; J01.90 Acute sinusitis, unspecified; J20.9 Acute bronchitis, unspecified; J44.1 Chronic obstructive pulmonary disease with (acute) exacerbation; E11.65 Type 2 diabetes mellitus with hyperglycemia; E78.5 Hyperlipidemia, unspecified; E87.5 Hyperkalemia; F17.200 Nicotine dependence, unspecified, uncomplicated; F32.9 Major depressive disorder, single episode, unspecified; F40.240 Claustrophobia; G47.00 Insomnia, unspecified; G89.29 Other chronic pain; I12.9 Hypertensive chronic kidney disease with stage 1 through stage 4 chronic kidney disease, or unspecified chronic kidney disease; I25.10 Atherosclerotic heart disease of native coronary artery without angina pectoris; I25.2 Old myocardial infarction; I45.10 Unspecified right bundle-branch block; J45.909 Unspecified asthma, uncomplicated; N18.9 Chronic kidney disease, unspecified; T38.0X5A Adverse effect of glucocorticoids and synthetic analogues, initial encounter; E66.9 Obesity, unspecified; M19.90 Unspecified osteoarthritis, unspecified site; R01.1 Cardiac murmur, unspecified; R74.8 Abnormal levels of other serum enzymes; I16.0 Hypertensive urgency; K64.9 Unspecified hemorrhoids; F41.9 Anxiety disorder, unspecified; Z68.30 Body mass index [BMI] 30.0-30.9, adult; Z79.4 Long term (current) use of insulin; Z79.02 Long term (current) use of antithrombotics/antiplatelets; Z79.899 Other long term (current) drug therapy; Z88.0 Allergy status to penicillin; Z88.2 Allergy status to sulfonamides; Z88.6 Allergy status to analgesic agent; Z88.1 Allergy status to other antibiotic agents; Z91.041 Radiographic dye allergy status; Z89.429 Acquired absence of other toe(s), unspecified side; Z82.49 Family history of ischemic heart disease and other diseases of the circulatory system
CPT/HCPCS: 36415; 71010; 80048; 80053; 80061; 81001; 82533; 82550; 82553; 83036; 83605; 83735; 84484; 85025; 85610; 85730; 87040; 87070; 87086; 87205; 87502; 93005; 94640; 96372; 96374; 96375; 96376; 99285

== ENCOUNTER 2016-07-14 22:49 | Inpatient (IN) | payer MEDICARE, OTHER ==
[2016-07-14] MEDS ORDERED: MECLIZINE 12.5 MG TAB PO STA (23:05)
[2016-07-14] MEDS ORDERED: DEXTROSE 50%-WATER 50 ML SYRINGE IVP STA (23:12)
[2016-07-14 23:23] LABS: Basophils % (A) 0 %; CH 31.1; CHCM 33.8; Eosinophils # (A) 0.1 k/uL (0-0.7); Eosinophils % (A) 1 %; HDW 3.26; Luc # (Auto) 0.19; Luc % (Auto) 2; Lymphocytes # (A) 1.7 k/uL (1.0-4.8); Lymphocytes % (A) 18 %; MCHC 32.4 g/dL (31.0-37.0); MCV 92.5 fL (80.0-100.0); Mean Platelet Volume 7.2; Monocytes # (A) 0.5 k/uL (0-1.0); Monocytes % (A) 5 %; Neutrophils # (A) 6.8 k/uL (1.3-7.7); Neutrophils % (A) 73 %; RBC 3.68 m/uL (3.80-5.40); RDW 13.8 % (11.5-15.5); WBC 9.4 k/uL (3.8-10.6); WBC (Perox) 9.39
[2016-07-14 23:28] LABS: Calcium 9.4 mg/dL (8.4-10.2); Potassium 4.6 mmol/L (3.5-5.1); Total Bilirubin 0.3 mg/dL (0.2-1.3); Total Protein 6.8 g/dL (6.3-8.2)
--- NOTE | 2016-07-14 23:57 | XR ---
EXAMINATION TYPE: XR chest 1V portable DATE OF EXAM: 07/14/2016 11:52 PM COMPARISON: 06/17/2016 HISTORY: Dizziness TECHNIQUE: Single frontal view of the chest is obtained. FINDINGS: There is no heart failure nor confluent pneumonic infiltrate. There are no hilar masses. C ostophrenic angles are clear. There are chest leads. IMPRESSION: No active cardiopulmonary disease. No change.
--- NOTE | 2016-07-14 23:59 | CT ---
EXAMINATION TYPE: CT brain wo con DATE OF EXAM: 07/14/2016 11:53 PM COMPARISON: 11/24/2014 HISTORY: Dizziness CT DLP: 1029.90 mGycm Automated exposure control for dose reduction was used. FINDINGS: There is mild cerebral cortical atrophy. There is no mass effect nor midline shift. There is no sign of intracranial hemorrhage. The calvarium is intact. IMPRESSION: Mild cerebral atrophy. No acute intracranial abnormality. No change. Bilateral maxillary sinusitis is noted.
[2016-07-15 00:54] LABS: Glucose,Whole Blood 147 mg/dL (75-99)
[2016-07-15 02:58] LABS: Amorphous Sediment,Urine Occasional /hpf; Appearance,Urine Turbid (Clear); Bacteria,Urine Rare /hpf; Bilirubin,Urine 1+ (Negative); Glucose,Urine (UA) 2+ (Negative); Ketones,Urine Negative (Negative); Leukocyte Esterase,Urine Large (Negative); Mucus,Urine Occasional /hpf; Nitrite,Urine Negative (Negative); Particle Count 28856; Protein,Urine 3+ (Negative); RBC,Urine 37 /hpf (0-5); Squamous Epithelial Cell,Urine 3 /hpf (0-4); UA Billing (MACRO vs. MICRO) MICRO; WBC,Urine 174 /hpf (0-5)
[2016-07-15] MEDS ORDERED: LEVOFLOXACIN 750MG-D5W PMX 750 MG in DEXTROSE/WATER 1 150ML.BAG IVPB STA (04:45)
[2016-07-15 04:55] LABS: Glucose,Whole Blood 59 mg/dL (75-99)
--- NOTE | 2016-07-15 06:52 | ED ---
General Adult HPI - General Chief complaint: Dizziness Stated complaint: Dizziness Time Seen by Provider: 07/14/16 22:54 Source: patient, EMS Mode of arrival: EMS Limitations: no limitations - History of Present Illness Initial comments: This patient is a 70-year-old woman who presents to be evaluated for generalized weakness, feeling dizzy and lightheaded, and malaise that is been getting worse since about a week ago, much worse the past 2-3 days. The patient states that today she called EMS because she was not even able to get up from seated position. She believes she may have been having chills and possibly a fever. She did have some cough and was seen about three week ago, being admitted here for which she believes was pneumonia. Patient states that since she went home she feels like her condition has just worsened again. Onset/Timin -: week(s) Consistency: constant Improves with: none Worsens with: none Associated Symptoms: fever/chills, malaise, weakness - Related Data Home Medications Medication Instructions Recorded Confirmed Albuterol Inhaler [Ventolin Hfa 2 puff INHALATION RT-Q6H PRN 06/02/16 07/14/16 Inhaler] Cilostazol [Pletal] 100 mg PO BID 06/02/16 07/14/16 Clopidogrel [Plavix] 75 mg PO DAILY 06/02/16 07/14/16 Ezetimibe [Zetia] 10 mg PO DAILY 06/02/16 07/14/16 Fluticasone Nasal [place] [Flonase 2 spr EA NOSTRIL DAILY PRN 06/02/16 07/14/16 Nasal [place]] Gabapentin 800 mg PO Q8H 06/02/16 07/14/16 Sertraline HCl [Zoloft] 100 mg PO DAILY 06/02/16 07/14/16 Famotidine [Pepcid] 20 mg PO BID 07/14/16 07/14/16 HYDROcodone/APAP 10-325MG [[place] 1 tab PO Q8H PRN 07/14/16 07/14/16 10-325] Lisinopril [Zestril] 10 mg PO DAILY 07/14/16 07/14/16 oxyCODONE ER [OxyCONTIN 15MG E.R] 15 mg PO DAILY 07/14/16 07/14/16 Previous Rx's Medication Instructions Recorded Insulin NPH/Reg Insulin 70/30 20 unit SQ AC-SUPPER #3 vial 06/14/16 [humuLIN 70/30 VIAL] Insulin NPH/Reg Insulin 70/30 28 unit SQ AC-BRKFST #3 vial 06/14/16 [humuLIN 70/30 VIAL] Isosorbide Mononitrate ER [Imdur] 60 mg PO DAILY #30 tab 06/14/16 Metoprolol Tartrate [Lopressor] 50 mg PO BID #60 tab 06/14/16 amLODIPine [Norvasc] 10 mg PO DAILY #30 tablet 06/14/16 Atorvastatin [Lipitor] 40 mg PO HS tab 06/25/16 Ipratropium-Albuterol Nebulize 3 ml INHALATION RT-QID PRN #0 06/25/16 [Duoneb 0.5 mg-3 mg/3 ml Soln] ampul.neb hydrALAZINE HCL [Apresoline] 50 mg PO TID tab 06/25/16 oxyCODONE HCL/ACETAMINOPHEN 1 tab PO Q6HR PRN #10 tab 06/25/16 [Percocet 10-325 mg] Allergies Allergy/AdvReac Type Severity Reaction Status Date / Time Iodinated Contrast Media - Allergy Severe Anaphylaxis Verified 07/14/16 23:12 Oral and [Iodinated Contrast Media - IV Dye] Iodine and Iodide Containing Allergy Severe Rash/Hives/ Verified 07/14/16 23:12 Produc Swelling nitrofurantoin Allergy Severe Anaphylaxis Verified 07/14/16 23:12 [From Macrobid] aspirin Allergy Rash/Hives Verified 07/14/16 23:12 cephalexin monohydrate Allergy Swelling Verified 07/14/16 23:12 [From Keflex] ciprofloxacin Allergy Unknown Verified 07/14/16 23:12 Penicillins Allergy Swelling Verified 07/14/16 23:12 Sulfa (Sulfonamide Allergy Rash/Hives Verified 07/14/16 23:12 Antibiotics) Review of Systems ROS Statement: Those systems with pertinent positive or pertinent negative responses have been documented in the HPI. ROS Other: All systems not noted in ROS Statement are negative. Constitutional: Reports: chills, weakness Eyes: Denies: vision change Respiratory: Reports: cough. Denies: dyspnea, wheezes Cardiovascular: Reports: palpitations. Denies: chest pain, edema, syncope Gastrointestinal: Denies: abdominal pain, nausea, vomiting, diarrhea, constipation Genitourinary: Reports: dysuria. Denies: frequency, hematuria Musculoskeletal: Denies: back pain Skin: Denies: rash Neurological: Reports: weakness. Denies: headache, numbness, paresthesias Past Medical History Past Medical History: Asthma, Coronary Artery Disease (CAD), Chest Pain / Angina , COPD, CVA/TIA, Diabetes Mellitus, Deep Vein Thrombosis (DVT), Hyperlipidemia, Hypertension, Myocardial Infarction (HI), Osteoarthritis (OA), Pneumonia, Renal Disease Additional Past Medical History / Comment(s): pt states she has one kidney, heart murmur, trouble staying asleep, hemroids, claustrophobic Last Myocardial Infarction Date:: around 2008 History of Any Multi-Drug Resistant Organisms: None Reported Past Surgical History: Appendectomy, Hysterectomy Additional Past Surgical History / Comment(s): lt femoral-pop bypass and amputation. Mar 2014. Amputation 2nd, 3rd, 4th toe Past Anesthesia/Blood Transfusion Reactions: No Reported Reaction Past Psychological History: Anxiety, Depression Additional Psychological History / Comment(s): pt stated has some mild depression d/t medical problems but not hopelss-denies any thoughts of harming self or others, no suicidal ideations.stated recent moved to a new [facility] that has no w/c ramp so she can't use her wheel chair. does use a cane and stated has had some falls. Smoking Status: Former smoker Past Alcohol Use History: None Reported Additional Past Alcohol Use History / Comment(s): Patient is a smoker of 2 packs per day for 55 years stated she quit officially 4 days ago. She denies any medical marijuana, marijuana, street drug use. She denies any alcohol use or abuse. She has been on disability for long period of time. She is currently living alone. Past Drug Use History: None Reported - Past Family History Mother Family Medical History: Cancer, Diabetes Mellitus, Myocardial Infarction (HI) Additional Family Medical History / Comment(s): from aortic anurysm Father Family Medical History: Renal Disease General Exam Limitations: no limitations General appearance: alert, obese Head exam: Present: atraumatic, normocephalic Eye exam: Present: normal appearance. Absent: scleral icterus, conjunctival injection ENT exam: Present: mucous membranes dry Neck exam: Present: full ROM Respiratory exam: Present: normal lung sounds bilaterally. Absent: respiratory distress, wheezes, rales, rhonchi, stridor Cardiovascular Exam: Present: regular rate, normal rhythm, normal heart sounds. Absent: systolic murmur, diastolic murmur, rubs, gallop GI/Abdominal exam: Present: soft. Absent: distended, tenderness, guarding, rebound, mass Extremities exam: Present: normal inspection, normal capillary refill. Absent: pedal edema, calf tenderness Neurological exam: Present: alert, oriented X3. Absent: motor sensory deficit Skin exam: Present: warm, intact, normal color, diaphoretic. Absent: rash, petechiae, pallor, mottled Course Vital Signs 07/14/16 07/15/16 07/15/16 22:57 00:10 02:15 Temperature 97.8 F Pulse Rate 92 80 75 Respiratory 20 18 18 Rate Blood Pressure 110/56 124/66 136/66 O2 Sat by Pulse 94 L 97 97 Oximetry 07/15/16 07/15/16 05:05 06:31 Temperature Pulse Rate 73 78 Respiratory 14 14 Rate Blood Pressure 143/76 128/60 O2 Sat by Pulse 100 93 L Oximetry EKG Findings - EKG Results: EKG: interpreted by ERMD, sinus rhythm (Rate approximately 88 bpm), normal axis , normal ST/T - Blocks, [place], Hypertrophy, ST Abn: AV and intraventricular conduction: right bundle branch block (fixed/ intermittent, complete/incomplete) Medical Decision Making - Lab Data Result diagrams: 07/14/16 23:00 07/14/16 23:00 Lab Results 07/14/16 07/14/16 07/14/16 Range/Units 22:57 23:00 23:00 WBC 9.4 (3.8-10.6) k/uL RBC 3.68 L (3.80-5.40) m/uL Hgb 11.0 L (11.4-16.0) gm/dL Hct 34.0 (34.0-46.0) % MCV 92.5 (80.0-100.0) fL MCH 30.0 (25.0-35.0) pg MCHC 32.4 (31.0-37.0) g/dL RDW 13.8 (11.5-15.5) % Plt Count 521 H (150-450) k/uL Neutrophils % 73 % Lymphocytes % 18 % Monocytes % 5 % Eosinophils % 1 % Basophils % 0 % Neutrophils # 6.8 (1.3-7.7) k/uL Lymphocytes # 1.7 (1.0-4.8) k/uL Monocytes # 0.5 (0-1.0) k/uL Eosinophils # 0.1 (0-0.7) k/uL Basophils # 0.0 (0-0.2) k/uL Sodium 143 (137-145) mmol/L Potassium 4.6 (3.5-5.1) mmol/L Chloride 107 (98-107) mmol/L Carbon Dioxide 21 L (22-30) mmol/L Anion Gap 15 mmol/L BUN 36 H (7-17) mg/dL Creatinine 1.80 H (0.52-1.04) mg/dL Est GFR (MDRD) Af Amer 34 (>60 ml/min/1.73 sqM) Est GFR (MDRD) Non-Af 28 (>60 ml/min/1.73 sqM) Glucose 60 L (74-99) mg/dL POC Glucose (mg/dL) 59 L (75-99) mg/dL POC Glu Bus Monitor ID Carissa Bennett Plasma Lactic Acid Hector (0.7-2.0) mmol/L Calcium 9.4 (8.4-10.2) mg/dL Total Bilirubin 0.3 (0.2-1.3) mg/dL AST 13 L (14-36) U/L ALT 28 (9-52) U/L Alkaline Phosphatase 88 (38-126) U/L Troponin I (0.000-0.034) ng/mL Total Protein 6.8 (6.3-8.2) g/dL Albumin 3.7 (3.5-5.0) g/dL Urine Color Urine Appearance (Clear) Urine pH (5.0-8.0) Ur Specific [place] (1.001-1.035) Urine Protein (Negative) Urine Glucose (UA) (Negative) Urine Ketones (Negative) Urine Blood (Negative) Urine Nitrate (Negative) Urine Bilirubin (Negative) Urine Urobilinogen (<2.0) mg/dL Ur Leukocyte Esterase (Negative) Urine RBC (0-5) /hpf Urine WBC (0-5) /hpf Urine WBC Clumps (None) /hpf Ur Squamous Epith Cells (0-4) /hpf Amorphous Sediment (None) /hpf Urine Bacteria (None) /hpf Hyaline Casts (0-2) /lpf Urine Mucus (None) /hpf Urine Yeast (Budding) (None) /hpf 07/14/16 07/14/16 07/15/16 Range/Units 23:00 23:18 00:40 WBC (3.8-10.6) k/uL RBC (3.80-5.40) m/uL Hgb (11.4-16.0) gm/dL Hct (34.0-46.0) % MCV (80.0-100.0) fL MCH (25.0-35.0) pg MCHC (31.0-37.0) g/dL RDW (11.5-15.5) % Plt Count (150-450) k/uL Neutrophils % % Lymphocytes % % Monocytes % % Eosinophils % % Basophils % % Neutrophils # (1.3-7.7) k/uL Lymphocytes # (1.0-4.8) k/uL Monocytes # (0-1.0) k/uL Eosinophils # (0-0.7) k/uL Basophils # (0-0.2) k/uL Sodium (137-145) mmol/L Potassium (3.5-5.1) mmol/L Chloride (98-107) mmol/L Carbon Dioxide (22-30) mmol/L Anion Gap mmol/L BUN (7-17) mg/dL Creatinine (0.52-1.04) mg/dL Est GFR (MDRD) Af Amer (>60 ml/min/1.73 sqM) Est GFR (MDRD) Non-Af (>60 ml/min/1.73 sqM) Glucose (74-99) mg/dL POC Glucose (mg/dL) 147 H (75-99) mg/dL POC Glu Bus Monitor ID Kristi Castañeda Plasma Lactic Acid Hector 1.9 (0.7-2.0) mmol/L Calcium (8.4-10.2) mg/dL Total Bilirubin (0.2-1.3) mg/dL AST (14-36) U/L ALT (9-52) U/L Alkaline Phosphatase (38-126) U/L Troponin I 0.049 H* (0.000-0.034) ng/mL Total Protein (6.3-8.2) g/dL Albumin (3.5-5.0) g/dL Urine Color Urine Appearance (Clear) Urine pH (5.0-8.0) Ur Specific [place] (1.001-1.035) Urine Protein (Negative) Urine Glucose (UA) (Negative) Urine Ketones (Negative) Urine Blood (Negative) Urine Nitrate (Negative) Urine Bilirubin (Negative) Urine Urobilinogen (<2.0) mg/dL Ur Leukocyte Esterase (Negative) Urine RBC (0-5) /hpf Urine WBC (0-5) /hpf Urine WBC Clumps (None) /hpf Ur Squamous Epith Cells (0-4) /hpf Amorphous Sediment (None) /hpf Urine Bacteria (None) /hpf Hyaline Casts (0-2) /lpf Urine Mucus (None) /hpf Urine Yeast (Budding) (None) /hpf 07/15/16 Range/Units 02:35 WBC (3.8-10.6) k/uL RBC (3.80-5.40) m/uL Hgb (11.4-16.0) gm/dL Hct (34.0-46.0) % MCV (80.0-100.0) fL MCH (25.0-35.0) pg MCHC (31.0-37.0) g/dL RDW (11.5-15.5) % Plt Count (150-450) k/uL Neutrophils % % Lymphocytes % % Monocytes % % Eosinophils % % Basophils % % Neutrophils # (1.3-7.7) k/uL Lymphocytes # (1.0-4.8) k/uL Monocytes # (0-1.0) k/uL Eosinophils # (0-0.7) k/uL Basophils # (0-0.2) k/uL Sodium (137-145) mmol/L Potassium (3.5-5.1) mmol/L Chloride (98-107) mmol/L Carbon Dioxide (22-30) mmol/L Anion Gap mmol/L BUN (7-17) mg/dL Creatinine (0.52-1.04) mg/dL Est GFR (MDRD) Af Amer (>60 ml/min/1.73 sqM) Est GFR (MDRD) Non-Af (>60 ml/min/1.73 sqM) Glucose (74-99) mg/dL POC Glucose (mg/dL) (75-99) mg/dL POC Glu Bus Monitor ID Plasma Lactic Acid Hector (0.7-2.0) mmol/L Calcium (8.4-10.2) mg/dL Total Bilirubin (0.2-1.3) mg/dL AST (14-36) U/L ALT (9-52) U/L Alkaline Phosphatase (38-126) U/L Troponin I (0.000-0.034) ng/mL Total Protein (6.3-8.2) g/dL Albumin (3.5-5.0) g/dL Urine Color Yellow Urine Appearance Turbid H (Clear) Urine pH 6.0 (5.0-8.0) Ur Specific [place] 1.020 (1.001-1.035) Urine Protein 3+ H (Negative) Urine Glucose (UA) 2+ H (Negative) Urine Ketones Negative (Negative) Urine Blood Trace H (Negative) Urine Nitrate Negative (Negative) Urine Bilirubin 1+ H (Negative) Urine Urobilinogen 2.0 (<2.0) mg/dL Ur Leukocyte Esterase Large H (Negative) Urine RBC 37 H (0-5) /hpf Urine WBC 174 H (0-5) /hpf Urine WBC Clumps Occasional H (None) /hpf Ur Squamous Epith Cells 3 (0-4) /hpf Amorphous Sediment Occasional H (None) /hpf Urine Bacteria Rare H (None) /hpf Hyaline Casts 108 H (0-2) /lpf Urine Mucus Occasional H (None) /hpf Urine Yeast (Budding) Many H (None) /hpf Disposition Clinical Impression: Hypoglycemia, Urinary tract infection, Chronic renal failure Disposition: ADMITTED IP TO THIS HOSP Condition: Poor
[2016-07-15] MEDS ORDERED: NALOXONE 0.4 MG/ML 1 ML VIAL IV PRN (07:37)
[2016-07-15] MEDS ORDERED: ALBUTEROL INHALER 60 PUFF/8 GM INHALER INHALATION PRN (07:40)
[2016-07-15 08:03] LABS: Glucose,Whole Blood 127 mg/dL (75-99)
[2016-07-15] MEDS ORDERED: FAMOTIDINE 20 MG TAB PO SCH ×2 (09:00)
[2016-07-15] MEDS ORDERED: hydrALAZINE HCL 50 MG TAB PO SCH (09:00)
[2016-07-15] MEDS ORDERED: LEVOFLOXACIN 750 MG TAB PO SCH (09:00)
[2016-07-15] MEDS ORDERED: amLODIPine 10 MG TAB PO SCH (09:00)
[2016-07-15] MEDS: oxyCODONE ER 15 MG TAB.ER.12H PO SCH (09:17)
[2016-07-15] MEDS: GABAPENTIN 400 MG CAP PO SCH ×2 (09:18→17:09)
[2016-07-15] MEDS: CLOPIDOGREL 75 MG TAB PO SCH (09:19)
[2016-07-15] MEDS: CILOSTAZOL 100 MG TAB PO SCH ×2 (09:19→22:48)
[2016-07-15] MEDS: EZETIMIBE 10 MG TAB PO SCH (09:20)
[2016-07-15] MEDS: METOPROLOL TARTRATE 50 MG TAB PO SCH ×2 (09:21→21:07)
[2016-07-15] MEDS: SERTRALINE 100 MG TAB PO SCH (09:21)
[2016-07-15] MEDS: ISOSORBIDE MONONITRATE ER 60 MG TAB.ER.24H PO SCH (10:03)
[2016-07-15] MEDS: LISINOPRIL 10 MG TAB PO SCH (10:03)
[2016-07-15] MEDS: SODIUM CHLORIDE 0.9% 1,000 ML IV SCH (10:07)
[2016-07-15 11:58] LABS: Glucose,Whole Blood 202 mg/dL (75-99)
[2016-07-15 12:11] LABS: Creatine Kinase MB 1.2 ng/mL (0.0-2.4)
[2016-07-15 12:20] LABS: Calcium 8.5 mg/dL (8.4-10.2); Potassium 4.7 mmol/L (3.5-5.1); Total Bilirubin 0.4 mg/dL (0.2-1.3)
[2016-07-15 12:27] LABS: Basophils # (A) 0.1 k/uL (0-0.2); Basophils % (A) 1 %; CH 30.8; CHCM 32.2; Eosinophils # (A) 0.1 k/uL (0-0.7); Eosinophils % (A) 2 %; HDW 3.08; HGB 9.6 gm/dL (11.4-16.0); Hypochromasia Slight; Luc # (Auto) 0.14; Luc % (Auto) 2; Lymphocytes # (A) 2.2 k/uL (1.0-4.8); Lymphocytes % (A) 30 %; MCH 30.7 pg (25.0-35.0); MCHC 31.9 g/dL (31.0-37.0); MCV 96.2 fL (80.0-100.0); Mean Platelet Volume 7.8; Monocytes # (A) 0.4 k/uL (0-1.0); Monocytes % (A) 6 %; Neutrophils # (A) 4.5 k/uL (1.3-7.7); Neutrophils % (A) 60 %; RBC 3.12 m/uL (3.80-5.40); RDW 13.9 % (11.5-15.5); WBC 7.5 k/uL (3.8-10.6); WBC (Perox) 7.38
[2016-07-15] MEDS: INSULIN LISPRO (humaLOG) 300 UNIT/3 ML VIAL SQ SCH ×3 (12:27→21:01)
[2016-07-15 12:30] LABS: Hemoglobin A1C 7.5 % (4.2-6.1)
[2016-07-15] MEDS ORDERED: SODIUM CHLORIDE 0.9% 500 ML IV ONE ×2 (13:15→16:26)
[2016-07-15 13:44] LABS: Glucose,Whole Blood 129 mg/dL (75-99)
--- NOTE | 2016-07-15 15:00 | P.HPIM ---
History of Present Illness H&P Date: 07/15/16 Chief Complaint: Dizzy There is a 70-year-old female with a known past medical history of COPD, CVA, diabetes mellitus, [place], hypertension, peripheral vascular disease and chronic kidney disease. Patient presents to the emergency room with complaints of dizziness and generalized weakness. She reports that she has not been feeling well for over a week and has gotten worse over the last couple a days. She does mention having some burning with urination. Patient reports that she was sitting in her chair had given herself a dose of her insulin but was unable to find an her glucometer. She did get up to stand and was wobbly on her feet and having episodes of dizziness. At that point she did call EMS. In the emergency room she was found have a blood sugar level of 60. I gave her some dextrose. Blood sugars have normalized. She also was found have evidence of a urinary tract infection was started on Levaquin. Initially her blood pressures on presentation were normal. However this morning she did have one blood pressure of 93/52. Blood pressure was repeated at 129/69. She was then given her blood pressure medications. And at 1:00 this afternoon blood pressures 82/ 40. She'll be receiving an IV fluid bolus. She is complaining of some dizziness. Patient also reports having chest pains at home and in the hospital. Pain is reproducible with palpation of the chest wall. Her last heart catheterization was May 2016. Did reveal severe disease involving the distal right coronary artery with a long tubular lesion, intermediate disease involving the proximal LAD and first OM branch of the left circumflex. Cardiology had recommended maximizing medical treatment at that point. Patient had computed tomography scan of the brain showing no acute intracranial abnormality. Mild cerebral atrophy. And bilateral maxillary sinusitis. EKG had shown normal sinus rhythm with right bundle branch block. First troponin 0.049. Patient did have one episode of diarrhea. Stool be checked for C. diff. She denies any nausea or vomiting. Denies any shortness of breath. Review of Systems Please refer to HPI otherwise unremarkable Past Medical History Past Medical History: Asthma, Coronary Artery Disease (CAD), Chest Pain / Angina , COPD, CVA/TIA, Diabetes Mellitus, Deep Vein Thrombosis (DVT), Hyperlipidemia, Hypertension, Myocardial Infarction ([place]), Osteoarthritis (OA), Pneumonia, Renal Disease Additional Past Medical History / Comment(s): Recent hospitalizations with acute exacerbation COPD/purulent bronchitis and UTI, IDDM type II, DVT bilateral lower legs, cardiac murmur, congenital single right kidney, R nephrolithiasis per 05/2016 [place], difficulty sleeping, clausterphobia, CVA, falls. 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 Past Psychological History: Anxiety, Depression Additional Psychological History / Comment(s): pt stated has some mild depression d/t medical problems but not hopeless. Denies any thoughts of harming self or others, no suicidal ideations. Pt resides in an apartment. She uses a cane or a wheelchair. She does not drive. She has a legal guardian, Anna Saavedra. She states her LG has a spike machine heater assigned to her and that this spike machine heater is suppose to take her to appointments. Haulage [employer] contacted LG, Angelica Dai (Anna Fongleonor not in office). LG states concern for pt returning to independent living due to pt being admitted to hospital often. LG states pt just left [facility] [place] 07/06/16. Smoking Status: Current every day smoker Past Alcohol Use History: None Reported Additional Past Alcohol Use History / Comment(s): Patient is a smoker of 2 packs per day for 55 years. She denies any medical marijuana, marijuana, street drug use. She denies any alcohol use or abuse. She has been on disability for long period of time. She is currently living alone. Past Drug Use History: None Reported - Past Family History Mother Family Medical History: Cancer, Diabetes Mellitus, Myocardial Infarction ([place]) Additional Family Medical History / Comment(s): from aortic anurysm Father Family Medical History: Renal Disease Medications and Allergies Home Medications Medication Instructions Recorded Confirmed Type Albuterol Inhaler [Ventolin Hfa 2 puff INHALATION RT-Q6H PRN 06/02/16 07/14/16 History Inhaler] Cilostazol [Pletal] 100 mg PO BID 06/02/16 07/14/16 History Clopidogrel [Plavix] 75 mg PO DAILY 06/02/16 07/14/16 History Ezetimibe [Zetia] 10 mg PO DAILY 06/02/16 07/14/16 History Fluticasone Nasal [place] [Flonase 2 spr EA NOSTRIL DAILY PRN 06/02/16 07/14/16 History Nasal [place]] Gabapentin 800 mg PO Q8H 06/02/16 07/14/16 History Sertraline HCl [Zoloft] 100 mg PO DAILY 06/02/16 07/14/16 History Famotidine [Pepcid] 20 mg PO BID 07/14/16 07/14/16 History HYDROcodone/APAP 10-325MG [[place] 1 tab PO Q8H PRN 07/14/16 07/14/16 History 10-325] Lisinopril [Zestril] 10 mg PO DAILY 07/14/16 07/14/16 History oxyCODONE ER [OxyCONTIN 15MG E.R] 15 mg PO DAILY 07/14/16 07/14/16 History Allergies Allergy/AdvReac Type Severity Reaction Status Date / Time Iodinated Contrast Media - Allergy Severe Anaphylaxis Verified 07/14/16 23:12 Oral and [Iodinated Contrast Media - IV Dye] Iodine and Iodide Containing Allergy Severe Rash/Hives/ Verified 07/14/16 23:12 Produc Swelling nitrofurantoin Allergy Severe Anaphylaxis Verified 07/14/16 23:12 [From Macrobid] aspirin Allergy Rash/Hives Verified 07/14/16 23:12 cephalexin monohydrate Allergy Swelling Verified 07/14/16 23:12 [From Keflex] ciprofloxacin Allergy Unknown Verified 07/14/16 23:12 Penicillins Allergy Swelling Verified 07/14/16 23:12 Sulfa (Sulfonamide Allergy Rash/Hives Verified 07/14/16 23:12 Antibiotics) Physical Exam Vitals: Vital Signs Temp Pulse Resp BP Pulse Ox 07/15/16 13:00 70 16 82/40 97 07/15/16 09:20 129/69 07/15/16 08:45 97.9 F 74 12 93/52 98 07/15/16 08:06 97.9 F Intake and Output 07/14/16 07/15/16 07/15/16 22:59 06:59 14:59 Other: Weight 68.039 kg Patient Weight 07/16/16 06:59 Weight 68.039 kg Head normocephalic Neck supple Lungs clear to auscultation bilaterally no wheezing or crackles Heart regular rate and rhythm S1-S2, no rub or gallop Abdomen is soft diffuse tenderness more sensitive in the suprapubic area positive bowel sounds no hepatosplenomegaly Extremities no edema Neuro alert and orientated to 3 Results CBC & Chem 7: 07/15/16 11:54 07/15/16 11:54 Labs: Abnormal Lab Results - Last 24 Hours (Table) 07/15/16 07/15/16 07/15/16 Range/Units 07:54 11:19 11:43 RBC (3.80-5.40) m/uL Hgb (11.4-16.0) gm/dL Hct (34.0-46.0) % Carbon Dioxide (22-30) mmol/L BUN (7-17) mg/dL Creatinine (0.52-1.04) mg/dL Glucose (74-99) mg/dL POC Glucose (mg/dL) 127 H 202 H (75-99) mg/dL AST (14-36) U/L Total Creatine Kinase 21 L (30-135) U/L Total Protein (6.3-8.2) g/dL Albumin (3.5-5.0) g/dL 07/15/16 07/15/16 Range/Units 11:54 11:54 RBC 3.12 L (3.80-5.40) m/uL Hgb 9.6 L (11.4-16.0) gm/dL Hct 30.0 L (34.0-46.0) % Carbon Dioxide 20 L (22-30) mmol/L BUN 38 H (7-17) mg/dL Creatinine 2.03 H (0.52-1.04) mg/dL Glucose 176 H (74-99) mg/dL POC Glucose (mg/dL) (75-99) mg/dL AST 12 L (14-36) U/L Total Creatine Kinase (30-135) U/L Total Protein 6.0 L (6.3-8.2) g/dL Albumin 3.1 L (3.5-5.0) g/dL Thrombosis Risk Factor Assmnt - Choose All That Apply Any of the Below Risk Factors Present?: Yes Each Factor Represents 1 point: Abnormal pulmonary function (COPD), Obesity ( BMI >25) Other Risk Factors: Yes Each Risk Factor Represents 2 Points: Age 61-74 years Other congenital or acquired thrombophilia - If yes, enter type in comment: No Thrombosis Risk Factor Assessment Total Risk Factor Score: 4 Thrombosis Risk Factor Assessment Level: Moderate Risk Assessment and Plan Plan: 1. Episodes of dizziness: Possibly multifactorial due to urinary tract infection, hypoglycemia and dehydration. Computed tomography scan of the brain showed no acute changes did reveal some mild atrophy and bilateral maxillary sinusitis. Chest x-ray negative. 2. UTI: Send urine for culture. Continue Levaquin. 3. Diabetes mellitus type 2: With episodes of hypoglycemia. At this time discontinuing her home insulin. Continue with sliding scale coverage. We'll make further adjustments as needed. 4. Episodes of hypotension: Patient received a fluid bolus. After fluid bolus will continue with IV fluids at 100. Discontinue hydralazine. Parameters place around other blood pressure medications. 5. Chest pain with troponin 0.049: Cardiology consulted. Repeat EKG and troponin for active chest pain 6. Acute on chronic kidney disease: Chronic kidney disease stage IIIB. Continue with IV fluid hydration. Creatinine at 2.03 7. Mental status changes with left-sided facial droop. Facial droop may be old. Patient does have previous history of CVA. Consults neurology. Unable to arouse patient. Blood sugar 129. 8. History of COPD stable 9. Previous history of myocardial infarction and coronary artery disease 10. History of peripheral vascular disease GI prophylaxis Pepcid and DVT prophylaxis subcu heparin Time with Patient: Greater than 30 (Greater than 50% of the total time spent in counseling and coordination of care.I performed an examination of the patient and discussed their management with the physician Contract Accountant. I have reviewed the Physician Contract Accountant's notes and agree with the documented findings and plan of care)
[2016-07-15 17:03] LABS: Glucose,Whole Blood 219 mg/dL (75-99)
--- NOTE | 2016-07-15 17:08 | P.CRDCN ---
History of Present Illness Consult date: 07/15/16 Reason for Consult (text): Chest Pain Chief complaint: dizziness, generalized pain History of present illness: This is a 70-year-old female patient with a known history of diabetes , peripheral vascular disease, CVA, COPD, hyperlipidemia, prior CO and recent cardiac cath that showed severe disease involving the distal RCA, intermediate disease of the proximal LAD and first OM. She presented to the emergency department with complaints of dizziness, generalized weakness and generalized pain with chills and possible fever. Chest x-ray showed no active cardiopulmonary disease no change from previous. EKG showed sinus rhythm with right bundle branch block. Laboratory values show BUN 38, creatinine 2.03 and a troponin of 0.049. She is being followed by neurology to rule out CVA. Upon examination, the patient denies chest pain specifically however says she has pain everywhere with current complaint mostly of neck pain. She currently denies any complaints of dizziness does still complain of some weakness. Denies complains of shortness of breath, palpitations, orthopnea or edema. Her blood pressure has been running low and she is currently getting a normal saline bolus. Last pressure 86/42. Past Medical History Past Medical History: Asthma, Coronary Artery Disease (CAD), Chest Pain / Angina , COPD, CVA/TIA, Diabetes Mellitus, Deep Vein Thrombosis (DVT), Hyperlipidemia, Hypertension, Myocardial Infarction ([place]), Osteoarthritis (OA), Pneumonia, Renal Disease Additional Past Medical History / Comment(s): Recent hospitalizations with acute exacerbation COPD/purulent bronchitis and UTI, IDDM type II, DVT bilateral lower legs, cardiac murmur, congenital single right kidney, R nephrolithiasis per 05/2016 [place], difficulty sleeping, clausterphobia, CVA, falls. 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 Past Psychological History: Anxiety, Depression Additional Psychological History / Comment(s): pt stated has some mild depression d/t medical problems but not hopeless. Denies any thoughts of harming self or others, no suicidal ideations. Pt resides in an apartment. She uses a cane or a wheelchair. She does not drive. She has a legal guardian, Anna Saavedra. She states her LG has a ac/dc rewinder assigned to her and that this ac/dc rewinder is suppose to take her to appointments. Supervisor [employer] contacted LG, Angelica Dai (Anna Fongleonor not in office). LG states concern for pt returning to independent living due to pt being admitted to hospital often. LG states pt just left [facility] [place] 07/06/16. Smoking Status: Current every day smoker Past Alcohol Use History: None Reported Additional Past Alcohol Use History / Comment(s): Patient is a smoker of 2 packs per day for 55 years. She denies any medical marijuana, marijuana, street drug use. She denies any alcohol use or abuse. She has been on disability for long period of time. She is currently living alone. Past Drug Use History: None Reported - Past Family History Mother Family Medical History: Cancer, Diabetes Mellitus, Myocardial Infarction ([place]) Additional Family Medical History / Comment(s): from aortic anurysm Father Family Medical History: Renal Disease Medications and Allergies Home Medications Medication Instructions Recorded Confirmed Type Albuterol Inhaler [Ventolin Hfa 2 puff INHALATION RT-Q6H PRN 06/02/16 07/14/16 History Inhaler] Cilostazol [Pletal] 100 mg PO BID 06/02/16 07/14/16 History Clopidogrel [Plavix] 75 mg PO DAILY 06/02/16 07/14/16 History Ezetimibe [Zetia] 10 mg PO DAILY 06/02/16 07/14/16 History Fluticasone Nasal [place] [Flonase 2 spr EA NOSTRIL DAILY PRN 06/02/16 07/14/16 History Nasal [place]] Gabapentin 800 mg PO Q8H 06/02/16 07/14/16 History Sertraline HCl [Zoloft] 100 mg PO DAILY 06/02/16 07/14/16 History Famotidine [Pepcid] 20 mg PO BID 07/14/16 07/14/16 History HYDROcodone/APAP 10-325MG [[place] 1 tab PO Q8H PRN 07/14/16 07/14/16 History 10-325] Lisinopril [Zestril] 10 mg PO DAILY 07/14/16 07/14/16 History oxyCODONE ER [OxyCONTIN 15MG E.R] 15 mg PO DAILY 07/14/16 07/14/16 History Allergies Allergy/AdvReac Type Severity Reaction Status Date / Time Iodinated Contrast Media - Allergy Severe Anaphylaxis Verified 07/14/16 23:12 Oral and [Iodinated Contrast Media - IV Dye] Iodine and Iodide Containing Allergy Severe Rash/Hives/ Verified 07/14/16 23:12 Produc Swelling nitrofurantoin Allergy Severe Anaphylaxis Verified 07/14/16 23:12 [From Macrobid] aspirin Allergy Rash/Hives Verified 07/14/16 23:12 cephalexin monohydrate Allergy Swelling Verified 07/14/16 23:12 [From Keflex] ciprofloxacin Allergy Unknown Verified 07/14/16 23:12 Penicillins Allergy Swelling Verified 07/14/16 23:12 Sulfa (Sulfonamide Allergy Rash/Hives Verified 07/14/16 23:12 Antibiotics) Physical Exam Vitals: Vital Signs Temp Pulse Resp BP Pulse Ox 07/15/16 16:00 86/42 07/15/16 13:00 70 16 82/40 97 07/15/16 09:20 129/69 07/15/16 08:45 97.9 F 74 12 93/52 98 07/15/16 08:15 70 16 07/15/16 08:06 97.9 F Intake and Output 07/15/16 07/15/16 07/15/16 06:59 14:59 22:59 Intake Total 200 999 Balance 200 999 Intake: IV 999 Sodium Chloride 0.9% 500 999 ml @ 999 mls/hr IV .Q31M ONE Rx#:[id number] Oral 200 Other: # Voids 2 Weight 68.039 kg Patient Weight 07/16/16 06:59 Weight 68.039 kg PHYSICAL EXAMINATION: HEENT: Head is atraumatic, normocephalic. Pupils equal, round. Neck is supple. There is no elevated jugular venous pressure. HEART EXAMINATION: Heart sounds regular, S1 and S2 normal. No murmur or gallop heard. CHEST EXAMINATION: Lungs reveal diminished air entry bilaterally. No chest wall tenderness is noted on palpation or with deep breathing. ABDOMEN: Soft, nontender. Bowel sounds are heard. No organomegaly noted. EXTREMITIES: Diminished peripheral pulses with no evidence of peripheral edema and no calf tenderness noted. NEUROLOGIC patient is awake, alert and oriented x3. . Results 07/15/16 11:54 07/15/16 11:54 Cardiac Enzymes 07/15/16 07/15/16 Range/Units 11:19 11:54 AST 12 L (14-36) U/L CK-MB (CK-2) 1.2 (0.0-2.4) ng/mL CBC 07/15/16 Range/Units 11:54 WBC 7.5 (3.8-10.6) k/uL RBC 3.12 L (3.80-5.40) m/uL Hgb 9.6 L (11.4-16.0) gm/dL Hct 30.0 L (34.0-46.0) % Plt Count 417 (150-450) k/uL Comprehensive Metabolic Panel 07/15/16 Range/Units 11:54 Sodium 138 (137-145) mmol/L Potassium 4.7 (3.5-5.1) mmol/L Chloride 106 (98-107) mmol/L Carbon Dioxide 20 L (22-30) mmol/L BUN 38 H (7-17) mg/dL Creatinine 2.03 H (0.52-1.04) mg/dL Glucose 176 H (74-99) mg/dL Calcium 8.5 (8.4-10.2) mg/dL AST 12 L (14-36) U/L ALT 19 (9-52) U/L Alkaline Phosphatase 68 (38-126) U/L Total Protein 6.0 L (6.3-8.2) g/dL Albumin 3.1 L (3.5-5.0) g/dL Current Medications Generic Name Dose Route Start Last Admin Trade Name Freq PRN Reason Stop Dose Admin Acetaminophen 650 mg 07/15/16 07:37 Tylenol Tab PO Q6HR PRN Mild Pain or Fever > 100.5 Albuterol/Ipratropium 3 ml 07/15/16 07:40 Duoneb 0.5 Mg-3 Mg/3 Ml Soln INHALATION RT-QID PRN Shortness Of Breath Amlodipine Besylate 10 mg 07/15/16 09:00 07/15/16 10:03 Norvasc PO 10 mg DAILY [facility] Administration Atorvastatin Calcium 40 mg 07/15/16 21:00 Lipitor PO HS [facility] Cilostazol 100 mg 07/15/16 09:00 07/15/16 09:19 Pletal PO 100 mg BID [facility] Administration Clopidogrel Bisulfate 75 mg 07/15/16 09:00 07/15/16 09:19 Plavix PO 75 mg DAILY [facility] Administration Ezetimibe 10 mg 07/15/16 09:00 07/15/16 09:20 Zetia PO 10 mg DAILY [facility] Administration Famotidine 20 mg 07/16/16 09:00 Pepcid PO DAILY [facility] Fluticasone Propionate 2 spray 07/15/16 07:40 Flonase Nasal [place] EA NOSTRIL DAILY PRN Allergy Symptoms Gabapentin 800 mg 07/15/16 08:00 07/15/16 09:18 Neurontin PO 800 mg Q8HR [facility] Administration Heparin Sodium (Porcine) 5,000 unit 07/15/16 21:00 Heparin SQ Q12HR [facility] Sodium Chloride 1,000 mls @ 20 mls/hr 07/15/16 07:45 07/15/16 10:07 Saline 0.9% IV Not Given .Q24H [facility] Sodium Chloride 500 mls @ 999 mls/hr 07/15/16 16:26 07/15/16 16:29 Saline 0.9% IV 07/15/16 16:56 Not Given .Q31M ONE Insulin Human Lispro 0 unit 07/15/16 12:30 07/15/16 12:27 Humalog SQ 2 unit ACHS [facility] Administration Protocol Isosorbide Mononitrate 60 mg 07/15/16 09:00 07/15/16 10:03 Imdur PO 60 mg DAILY [facility] Administration Levofloxacin 500 mg 07/17/16 09:00 Levaquin PO Q48H [facility] Lisinopril 10 mg 07/15/16 09:00 07/15/16 10:03 Zestril PO 10 mg DAILY [facility] Administration Metoprolol Tartrate 50 mg 07/15/16 09:00 07/15/16 09:21 Lopressor PO 50 mg BID [facility] Administration Naloxone HCl 0.2 mg 07/15/16 07:37 Narcan IV Q2M PRN Opioid Reversal Oxycodone HCl 15 mg 07/15/16 09:00 07/15/16 09:17 Oxycontin 15mg E.R. PO 15 mg DAILY [facility] Administration Oxycodone/Acetaminophen 1 each 07/15/16 07:40 Percocet 10-325 PO Q6HR PRN Pain Sertraline HCl 100 mg 07/15/16 09:00 07/15/16 09:21 Zoloft PO 100 mg DAILY [facility] Administration Intake and Output 07/15/16 07/15/16 07/15/16 06:59 14:59 22:59 Intake Total 200 999 Balance 200 999 Intake: IV 999 Sodium Chloride 0.9% 500 999 ml @ 999 mls/hr IV .Q31M ONE Rx#:[id number] Oral 200 Other: # Voids 2 Weight 68.039 kg Patient Weight 07/16/16 06:59 Weight 68.039 kg 07/15/16 11:54 07/15/16 11:54 EKG Interpretations (text) Sinus rhythm with a right bundle branch block Assessment and Plan Plan: Assessment and plan #1 hypertension, currently hypotensive #2 generalized pain including chest pain, increased upon palpation #3 abnormal troponin, these were also elevated during previous admission #4 acute on chronic kidney failure #5 diabetes #6 dehydration From a cardiac standpoint, we will stop the patient's Norvasc. We agree with hydrating the patient. We will follow the patient's renal function as well as troponins. We'll continue to follow the patient and provide further recommendations accordingly. CERTIFIED REGISTERED DENTAL ASSISTANT note has been reviewed, I agree with a documented findings and plan of care. Patient was seen and examined.
--- NOTE | 2016-07-15 17:25 | P.PN ---
Progress Note - Text This is an addendum to the dictated cardiology consultation. The patient has a known history of coronary disease and maximal medical therapy was recommended. The patient presented with symptoms of dizziness, fatigue, diarrhea. She has episode of chest discomfort that is chronic and appears to be atypical for ischemic heart disease. Her blood pressure was low today and she is being hydrated. Her troponin is mildly elevated but that could be related to her renal failure and she had similar pattern during previous admission. She has no evidence to suggest congestive heart failure or acute coronary syndrome at this time. On her physical examination she has no lung congestion and no edema. She is in sinus mechanism. I will continue present therapy, stop her amlodipine and continue hydration. Depending on her progress further recommendations will be made. Thank you for this consult we will follow with you.
--- NOTE | 2016-07-15 17:27 | P.CNNES ---
History of Present Illness Consult date: 07/15/16 Chief complaint: Left facial droop History of Present Illness: Patient is a pleasant 70-year-old female who is being evaluated by the neurology service on 07/15/2016 per the request of Dr. Pereira for left facial droop. Patient does have history of previous CVA, diabetes mellitus, [place] , hypertension, peripheral vascular disease, COPD, and chronic kidney disease. Patient came to the emergency room for complaints of dizziness and generalized weakness. Upon admission to the emergency room patient was found to have a blood sugar level of 60. Patient was given dextrose and blood sugars have normalized. Patient was also found to have a urinary tract infection and was started on Levaquin. Due to dizziness and weakness, patient had CT of the brain which showed mild cerebral atrophy and no acute intracranial abnormality. CT also revealed bilateral maxillary sinusitis. Today it was noted the patient had left facial droop. It is not clear whether this is residual from prior CVA. Patient does have a guardian who is not present at this time. Patient does not have any lateralizing weakness. At the time of my evaluation, patient's resting comfortably in bed and appears to be in no acute distress. Review of Systems REVIEW OF SYSTEMS: Otherwise unremarkable and noncontributory. Past Medical History Past Medical History: Asthma, Coronary Artery Disease (CAD), Chest Pain / Angina , COPD, CVA/TIA, Diabetes Mellitus, Deep Vein Thrombosis (DVT), Hyperlipidemia, Hypertension, Myocardial Infarction (MO), Osteoarthritis (OA), Pneumonia, Renal Disease Additional Past Medical History / Comment(s): Recent hospitalizations with acute exacerbation COPD/purulent bronchitis and UTI, IDDM type II, DVT bilateral lower legs, cardiac murmur, congenital single right kidney, R nephrolithiasis per 05/2016 U/S, difficulty sleeping, clausterphobia, CVA, falls. 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 Past Psychological History: Anxiety, Depression Additional Psychological History / Comment(s): pt stated has some mild depression d/t medical problems but not hopeless. Denies any thoughts of harming self or others, no suicidal ideations. Pt resides in an apartment. She uses a cane or a wheelchair. She does not drive. She has a legal guardian, Anna Saavedra. She states her LG has a intake man assigned to her and that this intake man is suppose to take her to appointments. [employer] Director contacted LG, Angelica Dai (Anna Fongleonor not in office). LG states concern for pt returning to independent living due to pt being admitted to hospital often. LG states pt just left [facility] [place] 07/06/16. Smoking Status: Current every day smoker Past Alcohol Use History: None Reported Additional Past Alcohol Use History / Comment(s): Patient is a smoker of 2 packs per day for 55 years. She denies any medical marijuana, marijuana, street drug use. She denies any alcohol use or abuse. She has been on disability for long period of time. She is currently living alone. Past Drug Use History: None Reported - Past Family History Mother Family Medical History: Cancer, Diabetes Mellitus, Myocardial Infarction (MO) Additional Family Medical History / Comment(s): from aortic anurysm Father Family Medical History: Renal Disease Medications and Allergies Home Medications Medication Instructions Recorded Confirmed Type Albuterol Inhaler [Ventolin Hfa 2 puff INHALATION RT-Q6H PRN 06/02/16 07/14/16 History Inhaler] Cilostazol [Pletal] 100 mg PO BID 06/02/16 07/14/16 History Clopidogrel [Plavix] 75 mg PO DAILY 06/02/16 07/14/16 History Ezetimibe [Zetia] 10 mg PO DAILY 06/02/16 07/14/16 History Fluticasone Nasal [place] [Flonase 2 spr EA NOSTRIL DAILY PRN 06/02/16 07/14/16 History Nasal [place]] Gabapentin 800 mg PO Q8H 06/02/16 07/14/16 History Sertraline HCl [Zoloft] 100 mg PO DAILY 06/02/16 07/14/16 History Famotidine [Pepcid] 20 mg PO BID 07/14/16 07/14/16 History HYDROcodone/APAP 10-325MG [[place] 1 tab PO Q8H PRN 07/14/16 07/14/16 History 10-325] Lisinopril [Zestril] 10 mg PO DAILY 07/14/16 07/14/16 History oxyCODONE ER [OxyCONTIN 15MG E.R] 15 mg PO DAILY 07/14/16 07/14/16 History Allergies Allergy/AdvReac Type Severity Reaction Status Date / Time Iodinated Contrast Media - Allergy Severe Anaphylaxis Verified 07/14/16 23:12 Oral and [Iodinated Contrast Media - IV Dye] Iodine and Iodide Containing Allergy Severe Rash/Hives/ Verified 07/14/16 23:12 Produc Swelling nitrofurantoin Allergy Severe Anaphylaxis Verified 07/14/16 23:12 [From Macrobid] aspirin Allergy Rash/Hives Verified 07/14/16 23:12 cephalexin monohydrate Allergy Swelling Verified 07/14/16 23:12 [From Keflex] ciprofloxacin Allergy Unknown Verified 07/14/16 23:12 Penicillins Allergy Swelling Verified 07/14/16 23:12 Sulfa (Sulfonamide Allergy Rash/Hives Verified 07/14/16 23:12 Antibiotics) Physical Examination - Vital Signs Vital Signs: Vital Signs Temp Pulse Resp BP Pulse Ox 07/15/16 16:00 86/42 07/15/16 13:00 70 16 82/40 97 07/15/16 09:20 129/69 07/15/16 08:45 97.9 F 74 12 93/52 98 07/15/16 08:15 70 16 07/15/16 08:06 97.9 F Intake and Output 07/15/16 07/15/16 07/15/16 06:59 14:59 22:59 Intake Total 200 999 Balance 200 999 Intake: IV 999 Sodium Chloride 0.9% 500 999 ml @ 999 mls/hr IV .Q31M [facility] Rx#:[id number] Oral 200 Other: # Voids 2 Weight 68.039 kg Patient Weight 07/16/16 06:59 Weight 68.039 kg PHYSICAL EXAM: GENERAL APPEARANCE: Patient is a well-developed, female who appears to be in no acute distress. HEENT: Normocephalic, atraumatic, left facial droop. Neck is supple with no masses felt. CARDIOVASCULAR: Regular rate and rhythm. ABDOMEN: Nontender, nondistended. EXTREMITIES: Show no edema or clubbing. NEUROLOGICAL EXAM: Patient is awake, alert, and oriented 3. Speech and language are normal. Prominent left facial droop is noted. It is not clear whether this is acute or chronic. Patient is a poor historian. Strength is full in all 4 extremities. Sensory is diminished to light touch on left side as compared to the right side. No tremors or seizure-like activity is noted. Results - Laboratory Findings CBC and BMP: 07/15/16 11:54 07/15/16 11:54 Abnormal Lab Findings: Abnormal Labs 07/15/16 07/15/16 07/15/16 07:54 11:19 11:19 RBC Hgb Hct Carbon Dioxide BUN Creatinine Glucose POC Glucose (mg/dL) 127 H AST Total Creatine Kinase 21 L Troponin I 0.052 H* Total Protein Albumin 07/15/16 07/15/16 07/15/16 11:43 11:54 11:54 RBC 3.12 L Hgb 9.6 L Hct 30.0 L Carbon Dioxide 20 L BUN 38 H Creatinine 2.03 H Glucose 176 H POC Glucose (mg/dL) 202 H AST 12 L Total Creatine Kinase Troponin I Total Protein 6.0 L Albumin 3.1 L 07/15/16 07/15/16 13:41 16:51 RBC Hgb Hct Carbon Dioxide BUN Creatinine Glucose POC Glucose (mg/dL) 129 H 219 H AST Total Creatine Kinase Troponin I Total Protein Albumin Assessment and Plan Plan: Impression: 1. Left facial droop 2. History of CVA 3. Urinary tract infection 4. Dehydration 5. Diabetes mellitus Recommendations: It does appear patient does have left facial droop. It is unclear whether this is acute or chronic. Patient does have history of CVA in the past. Patient is a poor historian. Patient does have legal guardian who is not present at this time. Computed tomography scan of the brain showed no acute intracranial process. CT of the brain did reveal mild atrophic changes and bilateral maxillary sinusitis. No lateralizing weakness is seen. I will order an MRI of the brain. I will order an EEG. I will order fasting lipid panel and serum homocystine level. Continue Plavix 75 mg by mouth daily. Continue neurological checks. I will continue to follow with you. Further recommendations to follow. The for allowing me to participate in the care of your patient. Feel free to call with any questions or concerns. I performed an examination of the patient and discussed the management with the PV DESIGN ENGINEER. I have reviewed the PV DESIGN ENGINEER notes and agree with the findings and plan of care.
[2016-07-15] MEDS ORDERED: INSULIN NPH/REG INSULIN 70/30 300 UNIT/3 ML VIAL SQ SCH (17:30)
[2016-07-15] MEDS ORDERED: LORazepam 1 MG TAB PO ONE (17:32)
[2016-07-15 18:06] LABS: Cholesterol 137 mg/dL (<200); HDL Cholesterol 30 mg/dL (40-60); Triglycerides 205 mg/dL (<150)
[2016-07-15 18:44] LABS: Troponin I 0.04 ng/mL (0.000-0.034)
[2016-07-15 20:38] LABS: Glucose,Whole Blood 308 mg/dL (75-99)
[2016-07-15] MEDS: HEPARIN SODIUM,PORCINE 5,000 UNIT/ML 1 ML VIAL SQ SCH (21:01)
[2016-07-15] MEDS: ATORVASTATIN 40 MG TAB PO SCH (21:01)
[2016-07-15] MEDS: oxyCODONE-APAP 10-325MG 1 EACH TAB PO PRN (21:10)
[2016-07-15] MEDS: FLUTICASONE 50MCG/SPRAY NASAL 16GM EA NOSTRIL PRN (23:16)
[2016-07-15 23:40] LABS: Troponin I 0.029 ng/mL (0.000-0.034)
[2016-07-16] MEDS: ACETAMINOPHEN TAB 325 MG TAB PO PRN (00:13)
[2016-07-16] MEDS: GABAPENTIN 400 MG CAP PO SCH ×4 (01:06→22:23)
[2016-07-16] MEDS: oxyCODONE-APAP 10-325MG 1 EACH TAB PO PRN ×2 (02:13→17:19)
[2016-07-16] MEDS ORDERED: HYDROmorphone 1 MG/ML 1 ML SYRINGE IVP STA (02:36)
[2016-07-16 06:10] LABS: Glucose,Whole Blood 168 mg/dL (75-99)
[2016-07-16 06:22] LABS: Basophils % (A) 0 %; CH 30.5; CHCM 31.9; Eosinophils # (A) 0.2 k/uL (0-0.7); Eosinophils % (A) 2 %; HCT 28.8 % (34.0-46.0); HDW 3.12; Hypochromasia Slight; Luc # (Auto) 0.18; Luc % (Auto) 2; Lymphocytes # (A) 2.7 k/uL (1.0-4.8); Lymphocytes % (A) 36 %; MCH 30.1 pg (25.0-35.0); MCHC 31.3 g/dL (31.0-37.0); MCV 96.2 fL (80.0-100.0); Monocytes # (A) 0.5 k/uL (0-1.0); Monocytes % (A) 6 %; Neutrophils # (A) 3.8 k/uL (1.3-7.7); Neutrophils % (A) 52 %; RDW 13.9 % (11.5-15.5); WBC 7.3 k/uL (3.8-10.6); WBC (Perox) 7.86
[2016-07-16] MEDS: INSULIN LISPRO (humaLOG) 300 UNIT/3 ML VIAL SQ SCH ×4 (06:23→21:47)
[2016-07-16 06:40] LABS: Calcium 8.4 mg/dL (8.4-10.2); Potassium 4.8 mmol/L (3.5-5.1); Total Bilirubin 0.3 mg/dL (0.2-1.3); Total Protein 5.7 g/dL (6.3-8.2)
[2016-07-16] MEDS ORDERED: INSULIN NPH/REG INSULIN 70/30 300 UNIT/3 ML VIAL SQ SCH (07:30)
[2016-07-16] MEDS: ISOSORBIDE MONONITRATE ER 60 MG TAB.ER.24H PO SCH (08:41)
[2016-07-16] MEDS: METOPROLOL TARTRATE 50 MG TAB PO SCH ×2 (08:41→20:45)
[2016-07-16] MEDS: EZETIMIBE 10 MG TAB PO SCH (08:41)
[2016-07-16] MEDS: HEPARIN SODIUM,PORCINE 5,000 UNIT/ML 1 ML VIAL SQ SCH ×2 (08:41→20:45)
[2016-07-16] MEDS: FAMOTIDINE 20 MG TAB PO SCH (08:41)
[2016-07-16] MEDS: SODIUM CHLORIDE 0.9% 1,000 ML IV SCH (08:42)
[2016-07-16] MEDS: oxyCODONE ER 15 MG TAB.ER.12H PO SCH (10:08)
[2016-07-16] MEDS: CLOPIDOGREL 75 MG TAB PO SCH (10:08)
[2016-07-16] MEDS: CILOSTAZOL 100 MG TAB PO SCH ×2 (10:08→20:45)
[2016-07-16] MEDS: LISINOPRIL 10 MG TAB PO SCH (10:10)
[2016-07-16] MEDS: SERTRALINE 100 MG TAB PO SCH (10:10)
[2016-07-16 12:09] LABS: Glucose,Whole Blood 156 mg/dL (75-99)
[2016-07-16] MEDS: FLUTICASONE 50MCG/SPRAY NASAL 16GM EA NOSTRIL PRN ×2 (12:20→20:47)
--- NOTE | 2016-07-16 12:23 | P.PN ---
Subjective 70-year-old female being seen this morning sitting up taking a diet patient states has not been experiencing any chest pain dizziness or lightheadedness. Patient does report that she has not been able to sleep last night. Did note the blood sugars have improved there 168, 156, and 9:00 last night 308. Patient 's on Levaquin for a UTI. Did not there's been no further episodes of hypotension cardiology stopped the patient's Norvasc. Patient's renal function is being followed creatinine is up this morning to 3 from 1.8 Objective - Vital Signs Vital signs: Vital Signs Temp 97.4 F L 07/16/16 08:00 Pulse 82 07/16/16 08:00 Resp 18 07/16/16 08:00 BP 113/56 07/16/16 10:00 Pulse Ox 95 07/16/16 08:00 Intake & Output 07/15/16 07/16/16 07/16/16 18:59 06:59 18:59 Intake Total 1199 750 120 Output Total 100 Balance 1199 650 120 Weight 68.039 kg 66.5 kg Intake: IV 999 Sodium Chloride 0.9% 500 999 ml @ 999 mls/hr IV .Q31M [facility] Rx#:[id number] Intake, IV Titration 750 Amount Sodium Chloride 0.9% 1, 750 000 ml @ 20 mls/hr IV . Q24H [facility] Rx#:[id number] Oral 200 120 Output: Urine 100 Other: # Voids 2 0 0 - Exam Physical exam 70-year-old female sitting up in bed taking a diet talkative oriented 3 denies any dizziness lightheadedness chest pain or shortness of breath chief complaint tired out no sleep last night Lungs adequate air movement bilaterally nasal cannula 2 L sats are 95% Heart S1-S2 audible and regular denying chest pain Abdomen soft no reports of nausea vomiting no urinary incontinence Extremities no evidence of edema upper or lower extremities - Labs CBC & Chem 7: 07/16/16 05:59 07/16/16 05:59 Labs: Abnormal Lab Results - Last 24 Hours (Table) 07/15/16 07/15/16 07/15/16 Range/Units 11:19 11:19 11:54 RBC 3.12 L (3.80-5.40) m/uL Hgb 9.6 L (11.4-16.0) gm/dL Hct 30.0 L (34.0-46.0) % Chloride (98-107) mmol/L Carbon Dioxide (22-30) mmol/L BUN (7-17) mg/dL Creatinine (0.52-1.04) mg/dL Glucose (74-99) mg/dL POC Glucose (mg/dL) (75-99) mg/dL AST (14-36) U/L Total Creatine Kinase 21 L (30-135) U/L Troponin I 0.052 H* (0.000-0.034) ng/mL Total Protein (6.3-8.2) g/dL Albumin (3.5-5.0) g/dL Triglycerides (<150) mg/dL HDL Cholesterol (40-60) mg/dL 07/15/16 07/15/16 07/15/16 Range/Units 11:54 11:54 13:41 RBC (3.80-5.40) m/uL Hgb (11.4-16.0) gm/dL Hct (34.0-46.0) % Chloride (98-107) mmol/L Carbon Dioxide 20 L (22-30) mmol/L BUN 38 H (7-17) mg/dL Creatinine 2.03 H (0.52-1.04) mg/dL Glucose 176 H (74-99) mg/dL POC Glucose (mg/dL) 129 H (75-99) mg/dL AST 12 L (14-36) U/L Total Creatine Kinase (30-135) U/L Troponin I (0.000-0.034) ng/mL Total Protein 6.0 L (6.3-8.2) g/dL Albumin 3.1 L (3.5-5.0) g/dL Triglycerides 205 H (<150) mg/dL HDL Cholesterol 30 L (40-60) mg/dL 07/15/16 07/15/16 07/15/16 Range/Units 16:51 17:20 20:37 RBC (3.80-5.40) m/uL Hgb (11.4-16.0) gm/dL Hct (34.0-46.0) % Chloride (98-107) mmol/L Carbon Dioxide (22-30) mmol/L BUN (7-17) mg/dL Creatinine (0.52-1.04) mg/dL Glucose (74-99) mg/dL POC Glucose (mg/dL) 219 H 308 H (75-99) mg/dL AST (14-36) U/L Total Creatine Kinase 23 L (30-135) U/L Troponin I 0.040 H* (0.000-0.034) ng/mL Total Protein (6.3-8.2) g/dL Albumin (3.5-5.0) g/dL Triglycerides (<150) mg/dL HDL Cholesterol (40-60) mg/dL 07/15/16 07/16/16 07/16/16 Range/Units 22:51 05:59 05:59 RBC 3.00 L (3.80-5.40) m/uL Hgb 9.0 L (11.4-16.0) gm/dL Hct 28.8 L (34.0-46.0) % Chloride 111 H (98-107) mmol/L Carbon Dioxide 18 L (22-30) mmol/L BUN 44 H (7-17) mg/dL Creatinine 3.01 H (0.52-1.04) mg/dL Glucose 155 H (74-99) mg/dL POC Glucose (mg/dL) (75-99) mg/dL AST 11 L (14-36) U/L Total Creatine Kinase 26 L (30-135) U/L Troponin I (0.000-0.034) ng/mL Total Protein 5.7 L (6.3-8.2) g/dL Albumin 3.0 L (3.5-5.0) g/dL Triglycerides (<150) mg/dL HDL Cholesterol (40-60) mg/dL 07/16/16 Range/Units 06:09 RBC (3.80-5.40) m/uL Hgb (11.4-16.0) gm/dL Hct (34.0-46.0) % Chloride (98-107) mmol/L Carbon Dioxide (22-30) mmol/L BUN (7-17) mg/dL Creatinine (0.52-1.04) mg/dL Glucose (74-99) mg/dL POC Glucose (mg/dL) 168 H (75-99) mg/dL AST (14-36) U/L Total Creatine Kinase (30-135) U/L Troponin I (0.000-0.034) ng/mL Total Protein (6.3-8.2) g/dL Albumin (3.5-5.0) g/dL Triglycerides (<150) mg/dL HDL Cholesterol (40-60) mg/dL Microbiology - Last 24 Hours (Table) 07/15/16 21:20 Urine Culture - Preliminary Urine,Clean Catch Assessment and Plan Plan: Impression Present on admission left facial droop suspect chronic in a patient who has had a prior CVA Present on admission UTI urine culture pending started on Levaquin Type 2 diabetes with episodes Episodes of hypoglycemia Physical debility Present on admission acute renal failure Clinical dehydration History of coronary artery disease heart catheterization June 17 severe disease involving the RCA LAD and first om Chest pain present on admission with elevated troponin cardiology following Acute on chronic kidney disease chronic kidney disease stage IIIB History of peripheral vascular disease Present on admission episodes of hypo-tension fluid bolus stop Norvasc noted improvement Present on admission episodes of dizziness lightheadedness multifactorial likely due to UTI, hypoglycemia, and clinical dehydration Current every day smoker Plan Continue with recommendations by cardiology service Consult nephrology for worsening of the creatinine Ultrasound kidneys DVT and GI prophylaxis Resume home meds as appropriate Continue Levaquin 500 by mouth every 48 hours Would hold the KRISTA inhibitor elevated potassium with episodes of hypotension Further recommendations pending Follow-up on the urine culture The above dictated assessment and findings were discussed with dr topete. Impression and the plan of care have been dictated as directed. Christal Brooke nurse practitioner acting as a scribe for dr topete
[2016-07-16] MEDS: HYDROcodone/APAP 10-325MG 1 EACH TAB PO PRN ×2 (14:13→22:29)
--- NOTE | 2016-07-16 14:25 | P.PN ---
Subjective Principal diagnosis: UTI, renal failure 70-year-old female patient with a known history of diabetes, peripheral vascular disease, CVA, COPD, hyperlipidemia, prior [place] with known coronary artery disease. Presented to the emergency department with complains of dizziness and generalized weakness as well as generalized pain with chills and possible fever. He is feeling quite a bit better today. Denies complaints of pain upon examination. Denies complaints of shortness of breath, chest discomfort, palpitations, dizziness, lightheadedness or weakness. Her blood pressure has improved since receiving normal saline bolus. Renal function is worse today with a BUN of 44 and creatinine of 3.01 and she is scheduled to have an ultrasound of the kidneys and bladder today. Objective - Vital Signs Vital signs: Vital Signs Temp 97.3 F L 07/16/16 12:00 Pulse 87 07/16/16 12:00 Resp 18 07/16/16 12:00 BP 125/61 07/16/16 12:00 Pulse Ox 96 07/16/16 12:00 Intake & Output 07/15/16 07/16/16 07/16/16 18:59 06:59 18:59 Intake Total 1199 750 420 Output Total 100 Balance 1199 650 420 Weight 68.039 kg 66.5 kg Intake: IV 999 300 Sodium Chloride 0.9% 1, 300 000 ml @ 20 mls/hr IV . Q24H [facility] Rx#:[id number] Sodium Chloride 0.9% 500 999 ml @ 999 mls/hr IV .Q31M [facility] Rx#:[id number] Intake, IV Titration 750 Amount Sodium Chloride 0.9% 1, 750 000 ml @ 20 mls/hr IV . Q24H [facility] Rx#:[id number] Oral 200 120 Output: Urine 100 Other: # Voids 2 0 0 - Exam PHYSICAL EXAMINATION: HEENT: Head is atraumatic, normocephalic. Pupils equal, round. Neck is supple. There is no elevated jugular venous pressure. HEART EXAMINATION: Heart sounds regular, S1 and S2 normal. No murmur or gallop heard. CHEST EXAMINATION: Lungs pires diminished air entry bilaterally. No chest wall tenderness is noted on palpation or with deep breathing. ABDOMEN: Soft, nontender. Bowel sounds are heard. No organomegaly noted. EXTREMITIES: Diminished peripheral pulses with no evidence of peripheral edema and no calf tenderness noted. NEUROLOGIC patient is awake, alert and oriented x3. . - Labs CBC & Chem 7: 07/16/16 05:59 07/16/16 05:59 Labs: Abnormal Lab Results - Last 24 Hours (Table) 07/15/16 07/15/16 07/15/16 Range/Units 11:19 11:54 16:51 RBC (3.80-5.40) m/uL Hgb (11.4-16.0) gm/dL Hct (34.0-46.0) % Chloride (98-107) mmol/L Carbon Dioxide (22-30) mmol/L BUN (7-17) mg/dL Creatinine (0.52-1.04) mg/dL Glucose (74-99) mg/dL POC Glucose (mg/dL) 219 H (75-99) mg/dL AST (14-36) U/L Total Creatine Kinase (30-135) U/L Troponin I 0.052 H* (0.000-0.034) ng/mL Total Protein (6.3-8.2) g/dL Albumin (3.5-5.0) g/dL Triglycerides 205 H (<150) mg/dL HDL Cholesterol 30 L (40-60) mg/dL 07/15/16 07/15/16 07/15/16 Range/Units 17:20 20:37 22:51 RBC (3.80-5.40) m/uL Hgb (11.4-16.0) gm/dL Hct (34.0-46.0) % Chloride (98-107) mmol/L Carbon Dioxide (22-30) mmol/L BUN (7-17) mg/dL Creatinine (0.52-1.04) mg/dL Glucose (74-99) mg/dL POC Glucose (mg/dL) 308 H (75-99) mg/dL AST (14-36) U/L Total Creatine Kinase 23 L 26 L (30-135) U/L Troponin I 0.040 H* (0.000-0.034) ng/mL Total Protein (6.3-8.2) g/dL Albumin (3.5-5.0) g/dL Triglycerides (<150) mg/dL HDL Cholesterol (40-60) mg/dL 07/16/16 07/16/16 07/16/16 Range/Units 05:59 05:59 06:09 RBC 3.00 L (3.80-5.40) m/uL Hgb 9.0 L (11.4-16.0) gm/dL Hct 28.8 L (34.0-46.0) % Chloride 111 H (98-107) mmol/L Carbon Dioxide 18 L (22-30) mmol/L BUN 44 H (7-17) mg/dL Creatinine 3.01 H (0.52-1.04) mg/dL Glucose 155 H (74-99) mg/dL POC Glucose (mg/dL) 168 H (75-99) mg/dL AST 11 L (14-36) U/L Total Creatine Kinase (30-135) U/L Troponin I (0.000-0.034) ng/mL Total Protein 5.7 L (6.3-8.2) g/dL Albumin 3.0 L (3.5-5.0) g/dL Triglycerides (<150) mg/dL HDL Cholesterol (40-60) mg/dL 07/16/16 Range/Units 12:03 RBC (3.80-5.40) m/uL Hgb (11.4-16.0) gm/dL Hct (34.0-46.0) % Chloride (98-107) mmol/L Carbon Dioxide (22-30) mmol/L BUN (7-17) mg/dL Creatinine (0.52-1.04) mg/dL Glucose (74-99) mg/dL POC Glucose (mg/dL) 156 H (75-99) mg/dL AST (14-36) U/L Total Creatine Kinase (30-135) U/L Troponin I (0.000-0.034) ng/mL Total Protein (6.3-8.2) g/dL Albumin (3.5-5.0) g/dL Triglycerides (<150) mg/dL HDL Cholesterol (40-60) mg/dL Microbiology - Last 24 Hours (Table) 07/15/16 21:20 Urine Culture - Preliminary Urine,Clean Catch Assessment and Plan Plan: Assessment and plan #1 hypertension with episode of hypotension #2 generalized pain including chest pain, increased upon palpation #3 abnormal troponin, these were also elevated during previous admission #4 acute on chronic kidney failure, worsening #5 diabetes #6 dehydration From a cardiac standpoint, does not appear to be any acute cardiac process. At this time we will follow the patient as needed. Please do not hesitate to contact us with questions. BROOMMAKER note has been reviewed, I agree with a documented findings and plan of care. Patient was seen and examined.
--- NOTE | 2016-07-16 16:07 | P.PN ---
Subjective Principal diagnosis: Patient is a pleasant 70-year-old female who is being followed by the neurology service for left facial droop. It remains unclear whether facial droop is acute or chronic. Patient does states she had a prior CVA in 1970 that left her with left facial droop. Patient is not sure if this droop is same or worse. There is no family member to confirm. Her neurological exam is not consistent with acute stroke. As you recall, CT of the brain showed mild cerebral atrophy and no acute intracranial abnormality. Patient continues to refuse MRI. At the time of my evaluation, patient is resting comfortably in bed and appears to be in no acute distress. Objective - Vital Signs Vital signs: Vital Signs Temp 97.3 F L 07/16/16 12:00 Pulse 87 07/16/16 12:00 Resp 18 07/16/16 12:00 BP 125/61 07/16/16 12:00 Pulse Ox 96 07/16/16 12:00 Intake & Output 07/15/16 07/16/16 07/16/16 18:59 06:59 18:59 Intake Total 1199 750 420 Output Total 100 Balance 1199 650 420 Weight 68.039 kg 66.5 kg Intake: IV 999 300 Sodium Chloride 0.9% 1, 300 000 ml @ 20 mls/hr IV . Q24H VINH Rx#:[id number] Sodium Chloride 0.9% 500 999 ml @ 999 mls/hr IV .Q31M ONE Rx#:[id number] Intake, IV Titration 750 Amount Sodium Chloride 0.9% 1, 750 000 ml @ 20 mls/hr IV . Q24H VINH Rx#:[id number] Oral 200 120 Output: Urine 100 Other: # Voids 2 0 0 - Exam PHYSICAL EXAM: GENERAL APPEARANCE: Patient is a well-developed, female who appears to be in no acute distress. HEENT: Normocephalic, atraumatic, left facial droop. Neck is supple with no masses felt. CARDIOVASCULAR: Regular rate and rhythm. ABDOMEN: Nontender, nondistended. EXTREMITIES: Show no edema or clubbing. NEUROLOGICAL EXAM: Patient is awake, alert, and oriented 3. Speech and language are normal. Left facial droop of the mouth noted on cranial nerve testing. Tongue is midline. Strength is 5/5 in all 4 extremities. Sensory exam is normal to light touch in all 4 extremities. No seizures or tremors noted. - Labs CBC & Chem 7: 07/16/16 05:59 07/16/16 05:59 Labs: Abnormal Lab Results - Last 24 Hours (Table) 07/15/16 07/15/16 07/15/16 Range/Units 11:19 11:54 16:51 RBC (3.80-5.40) m/uL Hgb (11.4-16.0) gm/dL Hct (34.0-46.0) % Chloride (98-107) mmol/L Carbon Dioxide (22-30) mmol/L BUN (7-17) mg/dL Creatinine (0.52-1.04) mg/dL Glucose (74-99) mg/dL POC Glucose (mg/dL) 219 H (75-99) mg/dL AST (14-36) U/L Total Creatine Kinase (30-135) U/L Troponin I 0.052 H* (0.000-0.034) ng/mL Total Protein (6.3-8.2) g/dL Albumin (3.5-5.0) g/dL Triglycerides 205 H (<150) mg/dL HDL Cholesterol 30 L (40-60) mg/dL 07/15/16 07/15/16 07/15/16 Range/Units 17:20 20:37 22:51 RBC (3.80-5.40) m/uL Hgb (11.4-16.0) gm/dL Hct (34.0-46.0) % Chloride (98-107) mmol/L Carbon Dioxide (22-30) mmol/L BUN (7-17) mg/dL Creatinine (0.52-1.04) mg/dL Glucose (74-99) mg/dL POC Glucose (mg/dL) 308 H (75-99) mg/dL AST (14-36) U/L Total Creatine Kinase 23 L 26 L (30-135) U/L Troponin I 0.040 H* (0.000-0.034) ng/mL Total Protein (6.3-8.2) g/dL Albumin (3.5-5.0) g/dL Triglycerides (<150) mg/dL HDL Cholesterol (40-60) mg/dL 07/16/16 07/16/16 07/16/16 Range/Units 05:59 05:59 06:09 RBC 3.00 L (3.80-5.40) m/uL Hgb 9.0 L (11.4-16.0) gm/dL Hct 28.8 L (34.0-46.0) % Chloride 111 H (98-107) mmol/L Carbon Dioxide 18 L (22-30) mmol/L BUN 44 H (7-17) mg/dL Creatinine 3.01 H (0.52-1.04) mg/dL Glucose 155 H (74-99) mg/dL POC Glucose (mg/dL) 168 H (75-99) mg/dL AST 11 L (14-36) U/L Total Creatine Kinase (30-135) U/L Troponin I (0.000-0.034) ng/mL Total Protein 5.7 L (6.3-8.2) g/dL Albumin 3.0 L (3.5-5.0) g/dL Triglycerides (<150) mg/dL HDL Cholesterol (40-60) mg/dL 07/16/16 Range/Units 12:03 RBC (3.80-5.40) m/uL Hgb (11.4-16.0) gm/dL Hct (34.0-46.0) % Chloride (98-107) mmol/L Carbon Dioxide (22-30) mmol/L BUN (7-17) mg/dL Creatinine (0.52-1.04) mg/dL Glucose (74-99) mg/dL POC Glucose (mg/dL) 156 H (75-99) mg/dL AST (14-36) U/L Total Creatine Kinase (30-135) U/L Troponin I (0.000-0.034) ng/mL Total Protein (6.3-8.2) g/dL Albumin (3.5-5.0) g/dL Triglycerides (<150) mg/dL HDL Cholesterol (40-60) mg/dL Microbiology - Last 24 Hours (Table) 07/15/16 21:20 Urine Culture - Preliminary Urine,Clean Catch Assessment and Plan Plan: Impression: 1. Left facial droop 2. History of CVA 3. Urinary tract infection 4. Dehydration 5. Diabetes mellitus Recommendations: It does appear patient does have left facial droop. It is unclear whether this is acute or chronic. Patient's presentation leads me to believe this is chronic. Patient does have history of CVA in the past. Patient is a poor historian. Patient does have legal guardian who is not present at this time. Computed tomography scan of the brain showed no acute intracranial process. CT of the brain did reveal mild atrophic changes and bilateral maxillary sinusitis. No lateralizing weakness is seen. I had ordered an MRI of the brain but patient refuses due to severe claustrophobia. Patient can have MRI done in open MRI as an outpatient and follow with us in the clinic. EEG was done and results are pending. Lipid panel was within normal limits except for low HDL of 30. Serum homocystine level was within normal limits. Continue Plavix 75 mg by mouth daily. Continue neurological checks. I will continue to follow with you on an as-needed basis. Feel free to call with any questions or concerns. I performed an examination of the patient and discussed the management with the SUBSTATION MANAGER. I have reviewed the SUBSTATION MANAGER notes and agree with the findings and plan of care.
[2016-07-16 16:42] LABS: Glucose,Whole Blood 193 mg/dL (75-99)
--- NOTE | 2016-07-16 18:08 | US ---
EXAMINATION TYPE: US kidneys/renal and bladder DATE OF EXAM: 07/16/2016 1:12 PM COMPARISON: 06/09/2016 CLINICAL HISTORY: 70 year-old female elevated creatinine evaluate for hydronephrosis. TECHNIQUE: Multiple sonographic images of the kidneys and bladder were obtained. FINDINGS: Right Kidney: 12.3 x 5.7 x 5.9 cm with mild pelviectasis. There is no veronica calyceal dilatation. Left Kidney: not seen Neither ureteral jet is visualized. There is a 1.4 cm area of dural based nodularity along the anteri or bladder wall, image 19 which may represent a fold as the profiling machine set up operator tool did not comment on this findi ng. IMPRESSION: 1. Mild right-sided pelviectasis. There is no veronica calyceal dilatation to suggest hydronephrosis. 2. Absent left kidney. 3. A 1.4 cm area of mural-based nodularity along the anterior bladder wall could represent a fold as the profiling machine set up operator tool does not comment on this finding. Recommend short interval follow-up as a urothelial lesion is not excluded at this time. Meanwhile, urinalysis and urine cytology may be helpful.
[2016-07-16] MEDS: IPRATROPIUM-ALBUTEROL 3 ML NEB INHALATION PRN (19:11)
[2016-07-16] MEDS: ATORVASTATIN 40 MG TAB PO SCH (20:45)
[2016-07-16] MEDS ORDERED: ZOLPIDEM 5 MG TAB PO PRN (21:00)
[2016-07-16 21:35] LABS: Glucose,Whole Blood 236 mg/dL (75-99)
[2016-07-17] MEDS: oxyCODONE-APAP 10-325MG 1 EACH TAB PO PRN ×2 (00:25→09:00)
[2016-07-17 06:54] LABS: Glucose,Whole Blood 172 mg/dL (75-99)
[2016-07-17] MEDS: INSULIN LISPRO (humaLOG) 300 UNIT/3 ML VIAL SQ SCH ×4 (06:55→22:06)
[2016-07-17] MEDS: FLUTICASONE 50MCG/SPRAY NASAL 16GM EA NOSTRIL PRN (08:58)
[2016-07-17] MEDS: HEPARIN SODIUM,PORCINE 5,000 UNIT/ML 1 ML VIAL SQ SCH ×2 (08:58→21:32)
[2016-07-17] MEDS: ISOSORBIDE MONONITRATE ER 60 MG TAB.ER.24H PO SCH (08:59)
[2016-07-17] MEDS: GABAPENTIN 400 MG CAP PO SCH ×3 (08:59→23:25)
[2016-07-17] MEDS: LEVOFLOXACIN 500 MG TAB PO SCH (09:00)
[2016-07-17 09:16] LABS: CH 30.9; CHCM 32.6; HCT 27.5 % (34.0-46.0); HDW 3.22; Hypochromasia Slight; MCH 31.2 pg (25.0-35.0); MCHC 32.8 g/dL (31.0-37.0); MCV 95.4 fL (80.0-100.0); Mean Platelet Volume 7.8; RBC 2.89 m/uL (3.80-5.40); RDW 14.2 % (11.5-15.5); WBC 6.8 k/uL (3.8-10.6)
[2016-07-17 09:30] LABS: Calcium 8.5 mg/dL (8.4-10.2); Potassium 5.5 mmol/L (3.5-5.1); Total Bilirubin 0.3 mg/dL (0.2-1.3); Total Protein 5.8 g/dL (6.3-8.2)
[2016-07-17] MEDS: EZETIMIBE 10 MG TAB PO SCH (10:42)
[2016-07-17] MEDS: oxyCODONE ER 15 MG TAB.ER.12H PO SCH ×2 (10:42→10:52)
[2016-07-17] MEDS: FAMOTIDINE 20 MG TAB PO SCH (10:43)
[2016-07-17] MEDS: SERTRALINE 100 MG TAB PO SCH (10:43)
[2016-07-17] MEDS: CLOPIDOGREL 75 MG TAB PO SCH (10:43)
[2016-07-17] MEDS: CILOSTAZOL 100 MG TAB PO SCH ×2 (10:43→21:31)
[2016-07-17] MEDS: SODIUM CHLORIDE 0.9% 1,000 ML IV SCH ×2 (10:44→13:43)
[2016-07-17] MEDS: METOPROLOL TARTRATE 50 MG TAB PO SCH ×2 (10:45→21:32)
--- NOTE | 2016-07-17 10:45 | P.PN ---
Subjective 70-year-old female being seen. Currently no new events. Patient was scheduled yesterday for an MRI of the brain per recommendations by neurology patient refused the study. Did note the creatinine today is up to 3.4 nephrology consultation pending. Patient's denying chest pain. Cardiology's recommendations reviewed noted patient does have a prior history of LA with known coronary artery disease cardiology recommends that there be no further cardiac recommendations at this time continue with the current meds. It does not appear to be any acute cardiac process Neurology's recommendations were reviewed as well. Patient has had a prior CVA in 1970 resulting in left facial droop which is chronic. Patient did have a CAT scan of the brain this admission that showed no acute intracranial abnormality noted. Objective - Vital Signs Vital signs: Vital Signs Temp 99.5 F 07/17/16 08:00 Pulse 75 07/17/16 08:00 Resp 18 07/17/16 08:00 BP 111/57 07/17/16 08:00 Pulse Ox 93 L 07/17/16 08:00 Intake & Output 07/16/16 07/17/16 07/17/16 18:59 06:59 18:59 Intake Total 570 185 120 Output Total 350 75 Balance 220 110 120 Weight 67.6 kg Intake: IV 330 185 Sodium Chloride 0.9% 1, 330 185 000 ml @ 20 mls/hr IV . Q24H VINH Rx#:[id number] Oral 240 120 Output: Urine 350 75 Other: # Voids 1 1 # Bowel Movements 0 0 - Exam Physical exam 70-year-old resting in bed no new events oriented 3 slight left facial droop noted Lungs essentially clear no wheezing no rhonchi noted no cough noted Heart S1-S2 audible regular monitor sinus Abdomen soft nontender reports no nausea vomiting Extremities no edema noted to the upper or lower extremities - Labs CBC & Chem 7: 07/17/16 08:42 07/17/16 08:42 Labs: Abnormal Lab Results - Last 24 Hours (Table) 07/16/16 07/16/16 07/16/16 Range/Units 12:03 16:25 21:34 RBC (3.80-5.40) m/uL Hgb (11.4-16.0) gm/dL Hct (34.0-46.0) % Potassium (3.5-5.1) mmol/L Chloride (98-107) mmol/L Carbon Dioxide (22-30) mmol/L BUN (7-17) mg/dL Creatinine (0.52-1.04) mg/dL Glucose (74-99) mg/dL POC Glucose (mg/dL) 156 H 193 H 236 H (75-99) mg/dL AST (14-36) U/L Total Protein (6.3-8.2) g/dL Albumin (3.5-5.0) g/dL 07/17/16 07/17/16 07/17/16 Range/Units 06:53 08:42 08:42 RBC 2.89 L (3.80-5.40) m/uL Hgb 9.0 L (11.4-16.0) gm/dL Hct 27.5 L (34.0-46.0) % Potassium 5.5 H (3.5-5.1) mmol/L Chloride 114 H (98-107) mmol/L Carbon Dioxide 18 L (22-30) mmol/L BUN 48 H (7-17) mg/dL Creatinine 3.41 H (0.52-1.04) mg/dL Glucose 132 H (74-99) mg/dL POC Glucose (mg/dL) 172 H (75-99) mg/dL AST 11 L (14-36) U/L Total Protein 5.8 L (6.3-8.2) g/dL Albumin 3.0 L (3.5-5.0) g/dL Assessment and Plan Plan: Impression Present on admission left facial droop suspect chronic in a patient who has had a prior CVA Present on admission UTI urine culture pending started on Levaquin Type 2 diabetes with episodes Episodes of hypoglycemia Physical debility Present on admission acute renal failure Clinical dehydration History of coronary artery disease heart catheterization June 17 severe disease involving the RCA LAD and first om Chest pain present on admission with elevated troponin cardiology following Acute on chronic kidney disease chronic kidney disease stage IIIB History of peripheral vascular disease Present on admission episodes of hypo-tension fluid bolus stop Norvasc noted improvement Present on admission episodes of dizziness lightheadedness multifactorial likely due to UTI, hypoglycemia, and clinical dehydration Current every day smoker Hyperkalemia KRISTA inhibitor held Plan Cardiology recommendations no further cardiac workup no acute coronary process noted Consult nephrology for worsening of the creatinine Ultrasound kidneys reviewed DVT and GI prophylaxis Resume home meds as appropriate Continue Levaquin 500 by mouth every 48 hours Would hold the KRISTA inhibitor elevated potassium with episodes of hypotension Further recommendations pending Follow-up on the urine culture Transfer to a F bed The above dictated assessment and findings were discussed with dr topete. Impression and the plan of care have been dictated as directed. Christal Brooke nurse practitioner acting as a scribe for dr topete
--- NOTE | 2016-07-17 11:20 | P.NPCON ---
History of Present Illness - Reason for Consult Consult date: 07/17/16 acute renal failure - Chief Complaint Acute kidney injury with vertigo - History of Present Illness This is a 70-year-old female seen in consultation because of acute kidney injury. She has chronic kidney disease creatinine was 1.3 on 06/19/2016 she came in with a creatinine of 3.41. Her presenting complaint were vertigo 1 day. She has difficulty hearing and and says she has earwax . No fever chills no nausea vomiting diarrhea. She did have nausea vomiting diarrhea during her last admission. She was recently admitted on 06/19/2016 and discharged 06/25/2016. discharge from the hospital after having undergone cardiac cath on 06/03/2016, it showed severe disease involving the distal right coronary artery, intermediate disease in the proximal LAD and left circumflex as well. Medical treatment was recommended. At the time she had acute kidney injury from tobramycin and dye. Creatinine peaked at 1.81 on 06/21/2016. Subsequently creatinine came down to 1.4 on 06/25/2016. On admission on 07/14/2016 her creatinine 1.8 and has subsequently gone up to 3.41. An ultrasound of the kidney on 07/16/2016 yesterday shows mild right-sided pelviectasis. Additionally absent left kidney from . A 1.4 cm area of mural based nodularity along the anterior bladder wall may represent a fold, therefore a follow-up was recommended. 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 Recent echocardiogram shows 50-55% ejection fraction dated 06/03/2016 Past Medical History Past Medical History: Asthma, Coronary Artery Disease (CAD), Chest Pain / Angina , COPD, CVA/TIA, Diabetes Mellitus, Deep Vein Thrombosis (DVT), Hyperlipidemia, Hypertension, Myocardial Infarction (IA), Osteoarthritis (OA), Pneumonia, Renal Disease Additional Past Medical History / Comment(s): Recent hospitalizations with acute exacerbation COPD/purulent bronchitis and UTI, IDDM type II, DVT bilateral lower legs, cardiac murmur, congenital single right kidney, R nephrolithiasis per 05/2016 U/S, difficulty sleeping, clausterphobia, CVA, falls. 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 Past Psychological History: Anxiety, Depression Additional Psychological History / Comment(s): pt stated has some mild depression d/t medical problems but not hopeless. Denies any thoughts of harming self or others, no suicidal ideations. Pt resides in an apartment. She uses a cane or a wheelchair. She does not drive. She has a legal guardian, Anna Saavedra. She states her LG has a overhead irrigator assigned to her and that this overhead irrigator is suppose to take her to appointments. [employer] contacted LG, Angelica Dai (Anna Fongleonor not in office). LG states concern for pt returning to independent living due to pt being admitted to hospital often. LG states pt just left [facility] 07/06/16. Smoking Status: Current every day smoker Past Alcohol Use History: None Reported Additional Past Alcohol Use History / Comment(s): Patient is a smoker of 2 packs per day for 55 years. She denies any medical marijuana, marijuana, street drug use. She denies any alcohol use or abuse. She has been on disability for long period of time. She is currently living alone. Past Drug Use History: None Reported - Past Family History Mother Family Medical History: Cancer, Diabetes Mellitus, Myocardial Infarction ([place]) Additional Family Medical History / Comment(s): from aortic anurysm Father Family Medical History: Renal Disease Medications and Allergies Home Medications Medication Instructions Recorded Confirmed Type Albuterol Inhaler [Ventolin Hfa 2 puff INHALATION RT-Q6H PRN 06/02/16 07/14/16 History Inhaler] Cilostazol [Pletal] 100 mg PO BID 06/02/16 07/14/16 History Clopidogrel [Plavix] 75 mg PO DAILY 06/02/16 07/14/16 History Ezetimibe [Zetia] 10 mg PO DAILY 06/02/16 07/14/16 History Fluticasone Nasal [place] [Flonase 2 spr EA NOSTRIL DAILY PRN 06/02/16 07/14/16 History Nasal [place]] Gabapentin 800 mg PO Q8H 06/02/16 07/14/16 History Sertraline HCl [Zoloft] 100 mg PO DAILY 06/02/16 07/14/16 History Famotidine [Pepcid] 20 mg PO BID 07/14/16 07/14/16 History HYDROcodone/APAP 10-325MG [[place] 1 tab PO Q8H PRN 07/14/16 07/14/16 History 10-325] Lisinopril [Zestril] 10 mg PO DAILY 07/14/16 07/14/16 History oxyCODONE ER [OxyCONTIN 15MG E.R] 15 mg PO DAILY 07/14/16 07/14/16 History Allergies Allergy/AdvReac Type Severity Reaction Status Date / Time Iodinated Contrast Media - Allergy Severe Anaphylaxis Verified 07/14/16 23:12 Oral and [Iodinated Contrast Media - IV Dye] Iodine and Iodide Containing Allergy Severe Rash/Hives/ Verified 07/14/16 23:12 Produc Swelling nitrofurantoin Allergy Severe Anaphylaxis Verified 07/14/16 23:12 [From Macrobid] aspirin Allergy Rash/Hives Verified 07/14/16 23:12 cephalexin monohydrate Allergy Swelling Verified 07/14/16 23:12 [From Keflex] ciprofloxacin Allergy Unknown Verified 07/14/16 23:12 Penicillins Allergy Swelling Verified 07/14/16 23:12 Sulfa (Sulfonamide Allergy Rash/Hives Verified 07/14/16 23:12 Antibiotics) Physical Exam Vitals: Vital Signs Temp Pulse Pulse Resp BP Pulse Ox 07/17/16 08:00 99.5 F 75 18 111/57 93 L 07/17/16 04:00 99 F 87 18 124/57 93 L 07/17/16 01:15 89 147/64 07/17/16 00:00 82 18 131/62 93 L 07/16/16 22:25 98.1 F 77 18 104/54 93 L 07/16/16 20:00 97.6 F 85 18 122/55 94 L 07/16/16 19:22 82 07/16/16 19:12 80 20 07/16/16 16:00 76 18 114/56 95 07/16/16 12:00 97.3 F L 87 18 125/61 96 Intake and Output 07/16/16 07/17/16 07/17/16 22:59 06:59 14:59 Intake Total 185 120 120 Output Total 75 Balance 185 45 120 Intake: IV 65 120 Sodium Chloride 0.9% 1, 65 120 000 ml @ 20 mls/hr IV . Q24H VINH Rx#:[id number] Oral 120 120 Output: Urine 75 Other: # Voids 1 1 # Bowel Movements 0 0 Weight 67.6 kg On examination she is awake alert oriented. HEENT exam no JVP neck is supple she had previous evidence of right Erwin's calcium. Lungs are clear to auscultation fair air entry bilaterally Heart sounds are unremarkable for any murmur rub gallop. Abdomen soft nontender except in the lower quadrant there is bilateral tenderness. No masses felt. Extremity exam was no edema Right foot has intact toes the left has only 2 toes from previous amputation. Both pulses in the feet not felt. Neurologically awake alert oriented and has right Erwin's paralysis chronically Results - Lab Results Most recent lab results Calcium 8.5 mg/dL (8.4-10.2) 07/17/16 08:42 07/17/16 08:42 07/17/16 08:42 Assessment and Plan Plan: Impression. 1. Acute kidney injury from prerenal possibly from intravascular volume depletion and possibly of lisinopril induced decrease in renal perfusion and a solitary kidney on the right raises the possibility of renovascular disease. This is likely because of the coronary artery disease, peripheral vascular disease. Rule out bladder outlet obstruction. Ultrasound shows mild pelviectasis. Other possibility is less swollen embolization post cardiac cath cholesterol embolization is about to be unlikely . Rule out acute interstitial nephritis 2. Chronic kidney disease previous creatinine is 1.3 dated 06/19/2016. Etiology is diabetic nephropathy with 3+ proteinuria, with a protein to creatinine ratio of 53 mg to 33.5 mg dated 02/24/2015 but not quantified recently. 3. Milia potassium is 5.5 secondary to acute kidney injury and lisinopril. 4. Mild non-gap acidosis from acute kidney injury and chronic kidney disease. Bicarb is 18 gap is 11 5. Anemia with hemoglobin around 9. Etiology is chronic kidney disease rule out iron deficiency per Recommendation. 1. Check postvoid residual with a bladder scan. 2. Gentle hydration with IV saline 75 mL an hour. 3. Check iron saturation. 4. Check urinalysis for acute interstitial nephritis, urine eosinophils
[2016-07-17 13:43] LABS: Glucose,Whole Blood 158 mg/dL (75-99)
[2016-07-17] MEDS: HYDROcodone/APAP 10-325MG 1 EACH TAB PO PRN (13:48)
[2016-07-17 17:23] LABS: Glucose,Whole Blood 115 mg/dL (75-99)
[2016-07-17] MEDS: ATORVASTATIN 40 MG TAB PO SCH (21:32)
[2016-07-17 22:21] LABS: Glucose,Whole Blood 132 mg/dL (75-99)
[2016-07-17] MEDS: ACETAMINOPHEN TAB 325 MG TAB PO PRN (23:26)
[2016-07-18] MEDS: SODIUM CHLORIDE 0.9% 1,000 ML IV SCH ×3 (04:21→15:21)
[2016-07-18] MEDS: ACETAMINOPHEN TAB 325 MG TAB PO PRN (05:00)
[2016-07-18 06:51] LABS: Glucose,Whole Blood 147 mg/dL (75-99)
[2016-07-18] MEDS: LISINOPRIL 10 MG TAB PO SCH (08:21)
[2016-07-18] MEDS: METOPROLOL TARTRATE 50 MG TAB PO SCH ×3 (08:21→23:27)
[2016-07-18] MEDS: GABAPENTIN 400 MG CAP PO SCH (08:28)
[2016-07-18] MEDS: FLUTICASONE 50MCG/SPRAY NASAL 16GM EA NOSTRIL PRN (08:28)
[2016-07-18] MEDS: INSULIN LISPRO (humaLOG) 300 UNIT/3 ML VIAL SQ SCH ×4 (08:29→23:13)
[2016-07-18] MEDS: CLOPIDOGREL 75 MG TAB PO SCH (08:29)
[2016-07-18] MEDS: HEPARIN SODIUM,PORCINE 5,000 UNIT/ML 1 ML VIAL SQ SCH ×2 (08:29→23:12)
[2016-07-18] MEDS: CILOSTAZOL 100 MG TAB PO SCH ×3 (08:29→23:26)
[2016-07-18] MEDS: SERTRALINE 100 MG TAB PO SCH (08:29)
[2016-07-18] MEDS: ISOSORBIDE MONONITRATE ER 60 MG TAB.ER.24H PO SCH (08:29)
[2016-07-18] MEDS: EZETIMIBE 10 MG TAB PO SCH (08:30)
[2016-07-18] MEDS: FAMOTIDINE 20 MG TAB PO SCH (08:30)
[2016-07-18] MEDS: oxyCODONE ER 15 MG TAB.ER.12H PO SCH (08:32)
[2016-07-18] MEDS ORDERED: Potassium Replacement Protocol 1 EACH MISC MISCELLANE PRN (10:18)
[2016-07-18] MEDS ORDERED: Magnesium Replacement Protocol 1 EACH MISC MISCELLANE PRN (10:18)
[2016-07-18 11:24] LABS: Calcium 8.7 mg/dL (8.4-10.2); Magnesium 1.7 mg/dL (1.6-2.3); Phosphorous 5.3 mg/dL (2.5-4.5); Potassium 5.9 mmol/L (3.5-5.1)
--- NOTE | 2016-07-18 11:30 | P.PN ---
Subjective Patient is seen in follow-up for acute kidney injury. Patient has chronic kidney disease stage III with baseline creatinine near 1.3 secondary to solitary right kidney as well as diabetic kidney disease. Patient presented with vertigo and was noted to be hypotensive with systolic blood pressure in the 80s. She was also having vomiting and diarrhea prior to admission which is now improved. States to go is also improving. Denies chest pain or shortness of breath. Creatinine was up to 3.4 yesterday. Labs from today are pending at this time. She did have urinary retention and a straight catheterization was performed last night and 600 mL of urine was drained. Vital signs are stable. General: The patient appeared well nourished and normally developed. HEENT: Head exam is unremarkable. Neck is without jugular venous distension. LUNGS: Lungs are clear to auscultation and percussion. Breath sounds decreased. HEART: Rate and Rhythm are regular. First and second heart sounds normal. No murmurs, rubs or gallops. ABDOMEN: Abdominal exam reveals normal bowel sounds. Non-tender and non- distended. No evidence of peritonitis. EXTREMITITES: No clubbing, cyanosis, or edema. Objective - Vital Signs Vital signs: Vital Signs Temp 97.9 F 07/18/16 07:00 Pulse 87 07/18/16 09:00 Resp 18 07/18/16 09:00 BP 109/54 07/18/16 07:00 Pulse Ox 97 07/18/16 07:00 Intake & Output 07/17/16 07/18/16 07/18/16 18:59 06:59 18:59 Intake Total 120 500 Output Total 600 Balance 120 -100 Intake: Oral 120 500 Output: Urine 600 Uretheral (Menjivar) 600 Other: # Voids 0 0 - Labs CBC & Chem 7: 07/17/16 08:42 07/17/16 08:42 Labs: Abnormal Lab Results - Last 24 Hours (Table) 07/17/16 07/17/16 07/17/16 Range/Units 13:41 17:11 22:04 POC Glucose (mg/dL) 158 H 115 H 132 H (75-99) mg/dL 07/18/16 Range/Units 06:44 POC Glucose (mg/dL) 147 H (75-99) mg/dL Microbiology - Last 24 Hours (Table) 07/15/16 21:20 Urine Culture - Final Urine,Clean Catch Sada glabrata Assessment and Plan Plan: Assessment: #1. Nonoliguric acute kidney injury secondary to ischemic ATN secondary to hypotension as well as component of urinary retention. Creatinine up to 3.4 as of yesterday. Labs from today are pending at this time. Urine eosinophils are negative. #2. Urinary retention. #3. Anemia. Rule out iron deficiency. #4. Metabolic acidosis secondary to acute kidney injury. #5. Chronic knee disease stage III with baseline creatinine near 1.3 secondary to solitary right kidney as well as diabetic kidney disease. Plan: Maintain normal saline to be run at 75 mL an hour. Next line check iron studies. Monitor serial postvoid residuals and to insert Menjivar catheter if greater than 250 mL. Avoid nephrotoxic agents and hypotensive episodes. Lisinopril held at this time. Start oral sodium bicarbonate supplementation 650 with a grams twice daily. Decreased dose of gabapentin to 100 mg 3 times daily. Repeat electrolytes in the morning.
[2016-07-18 11:33] LABS: % Iron Saturation 28.1 % (20-50)
[2016-07-18 12:06] LABS: Glucose,Whole Blood 142 mg/dL (75-99)
[2016-07-18] MEDS: SODIUM BICARBONATE TAB 650 MG TAB PO SCH ×3 (13:02→23:27)
[2016-07-18] MEDS: GABAPENTIN 100 MG CAP PO SCH ×3 (15:21→23:26)
[2016-07-18] MEDS ORDERED: GABAPENTIN 400 MG CAP PO SCH (16:00)
--- NOTE | 2016-07-18 16:55 | P.PN ---
Subjective Principal diagnosis: Acute kidney injury Patient is doing fairly well today. Blood pressure remained borderline low. She is complaining of chronic low back pain. Objective - Vital Signs Vital signs: Vital Signs Temp 97.8 F 07/18/16 15:00 Pulse 111 H 07/18/16 15:00 Resp 20 07/18/16 15:00 BP 109/52 07/18/16 15:00 Pulse Ox 95 07/18/16 15:00 Intake & Output 07/17/16 07/18/16 07/18/16 18:59 06:59 18:59 Intake Total 120 500 100 Output Total 600 Balance 120 -100 100 Intake: Oral 120 500 100 Output: Urine 600 Uretheral (Menjivar) 600 Other: # Voids 0 0 0 - Exam General: The patient is awake and alert, in no distress Eye: there is normal conjunctiva bilaterally. Neck: The neck is supple, there is no JVD. Cardiovascular: Normal S1-S2, no S3-S4, no murmurs. Respiratory: Lungs clear to auscultation bilaterally Gastrointestinal: Abdomen is soft, nontender Musculoskeletal: There is no pedal edema. Neurological:. Speech is normal. Skin: Skin is warm and dry - Labs CBC & Chem 7: 07/17/16 08:42 07/18/16 10:40 Labs: Abnormal Lab Results - Last 24 Hours (Table) 07/17/16 07/17/16 07/18/16 Range/Units 17:11 22:04 06:44 Potassium (3.5-5.1) mmol/L Chloride (98-107) mmol/L Carbon Dioxide (22-30) mmol/L BUN (7-17) mg/dL Creatinine (0.52-1.04) mg/dL Glucose (74-99) mg/dL POC Glucose (mg/dL) 115 H 132 H 147 H (75-99) mg/dL Phosphorus (2.5-4.5) mg/dL 07/18/16 07/18/16 Range/Units 10:40 12:05 Potassium 5.9 H (3.5-5.1) mmol/L Chloride 115 H (98-107) mmol/L Carbon Dioxide 15 L (22-30) mmol/L BUN 53 H (7-17) mg/dL Creatinine 3.50 H (0.52-1.04) mg/dL Glucose 131 H (74-99) mg/dL POC Glucose (mg/dL) 142 H (75-99) mg/dL Phosphorus 5.3 H (2.5-4.5) mg/dL Microbiology - Last 24 Hours (Table) 07/15/16 21:20 Urine Culture - Final Urine,Clean Catch Sada glabrata Assessment and Plan Plan: Impression Present on admission left facial droop suspect chronic in a patient who has had a prior CVA Present on admission UTI urine culture pending started on Levaquin Type 2 diabetes with episodes Episodes of hypoglycemia Physical debility Present on admission acute renal failure: Possibly related to obstructive uropathy Clinical dehydration History of coronary artery disease heart catheterization June 17 severe disease involving the RCA LAD and first om Chest pain present on admission with elevated troponin cardiology following Acute on chronic kidney disease chronic kidney disease stage IIIB History of peripheral vascular disease Present on admission episodes of hypo-tension fluid bolus stop Norvasc noted improvement Present on admission episodes of dizziness lightheadedness multifactorial likely due to UTI, hypoglycemia, and clinical dehydration Current every day smoker Hyperkalemia KRISTA inhibitor held Plan Cardiology recommendations no further cardiac workup no acute coronary process noted Consult nephrology for worsening of the creatinine, appreciate recommendation Ultrasound kidneys reviewed Continue postvoid residual check and insert Menjivar catheter if greater than 250 mL DVT and GI prophylaxis Resume home meds as appropriate Continue Levaquin 500 by mouth every 48 hours Would hold the KRISTA inhibitor elevated potassium with episodes of hypotension Further recommendations pending Follow-up on the urine culture
[2016-07-18 17:19] LABS: Glucose,Whole Blood 181 mg/dL (75-99)
[2016-07-18 21:08] LABS: Glucose,Whole Blood 222 mg/dL (75-99)
[2016-07-18] MEDS: ATORVASTATIN 40 MG TAB PO SCH ×2 (23:11→23:27)
[2016-07-18 23:15] LABS: Glucose,Whole Blood 247 mg/dL (75-99)
[2016-07-18] MEDS: ONDANSETRON 4 MG/2 ML VIAL IVP PRN (23:56)
[2016-07-19 01:37] LABS: Glucose,Whole Blood 200 mg/dL (75-99)
--- NOTE | 2016-07-19 05:28 | EEG ---
DATE OF SERVICE: 07/16/2016 REASON FOR TESTING: Altered mental status. AGE: 70Y DESCRIPTION OF THE PROCEDURE: This EEG was performed using a 21-channel digital electroencephalograph, following the international 10 to 20 system. DESCRIPTION OF THE RECORDING: From the beginning of the tracing, and with the patient's eyes closed, the background rhythm was mostly consisting of 8 Hz alpha frequency in the posterior occipital leads. No obvious asymmetry is seen. Photic stimulation was performed with a good driving response seen. No pathological waves were elicited. Hyperventilation was not performed. Occasional movement artifacts and muscle artifacts are seen. The patient remains awake throughout the tracing. No epileptiform discharges were seen. Her EKG lead showed an irregularly irregular rhythm with a normal rate. INTERPRETATION: This awake EEG can be considered within normal limits except her EKG lead showed an irregularly irregular rhythm. No epileptiform discharges were seen. The absence of epileptiform discharges does not rule out the diagnosis of epilepsy, therefore, clinical correlation is recommended.
[2016-07-19] MEDS: SODIUM CHLORIDE 0.9% 1,000 ML IV SCH ×3 (06:28→17:50)
[2016-07-19 07:05] LABS: Glucose,Whole Blood 150 mg/dL (75-99)
[2016-07-19] MEDS: INSULIN LISPRO (humaLOG) 300 UNIT/3 ML VIAL SQ SCH ×4 (08:13→21:17)
[2016-07-19 08:18] LABS: Basophils % (A) 0 %; CH 30.2; CHCM 30.7; Eosinophils % (A) 0 %; HCT 30.5 % (34.0-46.0); HDW 3.06; HGB 9.5 gm/dL (11.4-16.0); Hypochromasia Marked; Luc # (Auto) 0.14; Luc % (Auto) 1; Lymphocytes % (A) 11 %; MCH 30.6 pg (25.0-35.0); MCHC 30.9 g/dL (31.0-37.0); Monocytes # (A) 0.5 k/uL (0-1.0); Monocytes % (A) 5 %; Neutrophils # (A) 7.9 k/uL (1.3-7.7); Neutrophils % (A) 83 %; RBC 3.09 m/uL (3.80-5.40); RDW 13.8 % (11.5-15.5); WBC 9.6 k/uL (3.8-10.6); WBC (Perox) 10.39
[2016-07-19] MEDS: CILOSTAZOL 100 MG TAB PO SCH ×2 (08:22→20:23)
[2016-07-19] MEDS: SODIUM BICARBONATE TAB 650 MG TAB PO SCH ×3 (08:22→20:23)
[2016-07-19] MEDS: ISOSORBIDE MONONITRATE ER 60 MG TAB.ER.24H PO SCH (08:23)
[2016-07-19] MEDS: EZETIMIBE 10 MG TAB PO SCH (08:23)
[2016-07-19] MEDS: HEPARIN SODIUM,PORCINE 5,000 UNIT/ML 1 ML VIAL SQ SCH ×2 (08:23→23:17)
[2016-07-19] MEDS: FAMOTIDINE 20 MG TAB PO SCH (08:23)
[2016-07-19] MEDS: CLOPIDOGREL 75 MG TAB PO SCH (08:23)
[2016-07-19] MEDS: LEVOFLOXACIN 500 MG TAB PO SCH (08:24)
[2016-07-19] MEDS: METOPROLOL TARTRATE 50 MG TAB PO SCH (08:24)
[2016-07-19] MEDS: SERTRALINE 100 MG TAB PO SCH (08:24)
[2016-07-19 08:37] LABS: Magnesium 1.7 mg/dL (1.6-2.3); Phosphorous 5.3 mg/dL (2.5-4.5)
[2016-07-19 08:46] LABS: Potassium 6.4 mmol/L (3.5-5.1)
[2016-07-19] MEDS: GABAPENTIN 100 MG CAP PO SCH ×2 (09:12→16:35)
[2016-07-19] MEDS ORDERED: SODIUM POLYSTYRENE SULFONATE 15 GM/60 ML BOTTLE PO STA (10:52)
[2016-07-19] MEDS ORDERED: DEXTROSE 50%-WATER 50 ML SYRINGE IVP STA ×2 (10:57→17:29)
[2016-07-19] MEDS ORDERED: INSULIN REGULAR 100 UNIT/ML VIAL IV ONE ×2 (10:57→17:29)
[2016-07-19 11:29] LABS: Glucose,Whole Blood 173 mg/dL (75-99)
[2016-07-19] MEDS ORDERED: SODIUM BICARB 8.4% 50 ML SYR (1 MEQ/ML) IV STA (11:49)
--- NOTE | 2016-07-19 11:49 | P.PN ---
Subjective Patient is seen in follow-up for acute kidney injury. Patient has chronic kidney disease stage III with baseline creatinine near 1.3 secondary to solitary right kidney as well as diabetic kidney disease. Patient presented with vertigo and was noted to be hypotensive with systolic blood pressure in the 80s. She was also having vomiting and diarrhea prior to admission which is now improved. Denies chest pain or shortness of breath. Creatinine peaked at 3.5 this admission and is down to 3.35 today. She is noted to have urinary retention and a Menjivar catheter was placed yesterday. She is nonoliguric. She is somewhat a little more confused today. Her potassium level is up to 6.4. Vital signs are stable. General: The patient appeared well nourished and normally developed. HEENT: Head exam is unremarkable. Neck is without jugular venous distension. LUNGS: Lungs are clear to auscultation and percussion. Breath sounds decreased. HEART: Rate and Rhythm are regular. First and second heart sounds normal. No murmurs, rubs or gallops. ABDOMEN: Abdominal exam reveals normal bowel sounds. Non-tender and non- distended. No evidence of peritonitis. EXTREMITITES: No clubbing, cyanosis, or edema. Objective - Vital Signs Vital signs: Vital Signs Temp 98.1 F 07/19/16 07:00 Pulse 121 H 07/19/16 08:00 Resp 20 07/19/16 08:00 BP 147/71 07/19/16 07:00 Pulse Ox 92 L 07/19/16 07:00 Intake & Output 07/18/16 07/19/16 07/19/16 18:59 06:59 18:59 Intake Total 100 Output Total 500 600 Balance -400 -600 Intake: Oral 100 Output: Urine 400 600 Uretheral (Menjivar) 400 Emesis 100 Other: Voiding Method Indwelling Catheter Indwelling Catheter # Voids 0 - Labs CBC & Chem 7: 07/19/16 07:35 07/19/16 07:35 Labs: Abnormal Lab Results - Last 24 Hours (Table) 07/18/16 07/18/16 07/18/16 Range/Units 10:40 12:05 17:14 RBC (3.80-5.40) m/uL Hgb (11.4-16.0) gm/dL Hct (34.0-46.0) % MCHC (31.0-37.0) g/dL Neutrophils # (1.3-7.7) k/uL Potassium 5.9 H (3.5-5.1) mmol/L Chloride 115 H (98-107) mmol/L Carbon Dioxide 15 L (22-30) mmol/L BUN 53 H (7-17) mg/dL Creatinine 3.50 H (0.52-1.04) mg/dL Glucose 131 H (74-99) mg/dL POC Glucose (mg/dL) 142 H 181 H (75-99) mg/dL Phosphorus 5.3 H (2.5-4.5) mg/dL 07/18/16 07/18/16 07/19/16 Range/Units 21:05 23:11 01:35 RBC (3.80-5.40) m/uL Hgb (11.4-16.0) gm/dL Hct (34.0-46.0) % MCHC (31.0-37.0) g/dL Neutrophils # (1.3-7.7) k/uL Potassium (3.5-5.1) mmol/L Chloride (98-107) mmol/L Carbon Dioxide (22-30) mmol/L BUN (7-17) mg/dL Creatinine (0.52-1.04) mg/dL Glucose (74-99) mg/dL POC Glucose (mg/dL) 222 H 247 H 200 H (75-99) mg/dL Phosphorus (2.5-4.5) mg/dL 07/19/16 07/19/16 07/19/16 Range/Units 07:03 07:35 07:35 RBC 3.09 L (3.80-5.40) m/uL Hgb 9.5 L (11.4-16.0) gm/dL Hct 30.5 L (34.0-46.0) % MCHC 30.9 L (31.0-37.0) g/dL Neutrophils # 7.9 H (1.3-7.7) k/uL Potassium 6.4 H* (3.5-5.1) mmol/L Chloride 116 H (98-107) mmol/L Carbon Dioxide 15 L (22-30) mmol/L BUN 58 H (7-17) mg/dL Creatinine 3.35 H (0.52-1.04) mg/dL Glucose 148 H (74-99) mg/dL POC Glucose (mg/dL) 150 H (75-99) mg/dL Phosphorus 5.3 H (2.5-4.5) mg/dL 07/19/16 Range/Units 11:27 RBC (3.80-5.40) m/uL Hgb (11.4-16.0) gm/dL Hct (34.0-46.0) % MCHC (31.0-37.0) g/dL Neutrophils # (1.3-7.7) k/uL Potassium (3.5-5.1) mmol/L Chloride (98-107) mmol/L Carbon Dioxide (22-30) mmol/L BUN (7-17) mg/dL Creatinine (0.52-1.04) mg/dL Glucose (74-99) mg/dL POC Glucose (mg/dL) 173 H (75-99) mg/dL Phosphorus (2.5-4.5) mg/dL Assessment and Plan Plan: Assessment: #1. Nonoliguric acute kidney injury secondary to ischemic ATN secondary to hypotension as well as component of urinary retention. Creatinine peaked at 3.5 and is down to 3.35 today. Urine eosinophils are negative. #2. Urinary retention status post Menjivar catheter placement. #3. Anemia. Iron replete. #4. Metabolic acidosis secondary to acute kidney injury. #5. Chronic knee disease stage III with baseline creatinine near 1.3 secondary to solitary right kidney as well as diabetic kidney disease. #6. Hyperkalemia secondary to acute kidney injury and metabolic acidosis. Plan: Maintain normal saline to be run at 75 mL an hour. Avoid nephrotoxic agents and hypotensive episodes. Lisinopril held at this time. Decreased dose of gabapentin to 100 mg 3 times daily. I will give her 2 amps of sodium bicarbonate IV push. Increase dose of oral sodium bicarbonate 1300 mg twice daily. 10 units of IV regular insulin with amp of D50 now. 30 g of Kayexalate once now. Repeat potassium level at 3 PM today.
[2016-07-19 12:38] LABS: Glucose,Whole Blood 203 mg/dL (75-99)
--- NOTE | 2016-07-19 12:51 | P.PN ---
Subjective Principal diagnosis: Acute kidney injury Patient is lethargic but easily arousable today. She said that she did not get enough sleep overnight. Objective - Vital Signs Vital signs: Vital Signs Temp 98.1 F 07/19/16 07:00 Pulse 121 H 07/19/16 08:00 Resp 20 07/19/16 08:00 BP 147/71 07/19/16 07:00 Pulse Ox 92 L 07/19/16 07:00 Intake & Output 07/18/16 07/19/16 07/19/16 18:59 06:59 18:59 Intake Total 100 Output Total 500 600 Balance -400 -600 Weight 67.6 kg Intake: Oral 100 Output: Urine 400 600 Uretheral (Menjivar) 400 Emesis 100 Other: Voiding Method Indwelling Catheter Indwelling Catheter # Voids 0 - Exam General: The patient is awake and alert, in no distress Eye: there is normal conjunctiva bilaterally. Neck: The neck is supple, there is no JVD. Cardiovascular: Normal S1-S2, no S3-S4, no murmurs. Respiratory: Lungs clear to auscultation bilaterally Gastrointestinal: Abdomen is soft, nontender Musculoskeletal: There is no pedal edema. Neurological:. Speech is normal. Skin: Skin is warm and dry - Labs CBC & Chem 7: 07/19/16 07:35 07/19/16 07:35 Labs: Abnormal Lab Results - Last 24 Hours (Table) 07/18/16 07/18/16 07/18/16 Range/Units 17:14 21:05 23:11 RBC (3.80-5.40) m/uL Hgb (11.4-16.0) gm/dL Hct (34.0-46.0) % MCHC (31.0-37.0) g/dL Neutrophils # (1.3-7.7) k/uL Potassium (3.5-5.1) mmol/L Chloride (98-107) mmol/L Carbon Dioxide (22-30) mmol/L BUN (7-17) mg/dL Creatinine (0.52-1.04) mg/dL Glucose (74-99) mg/dL POC Glucose (mg/dL) 181 H 222 H 247 H (75-99) mg/dL Phosphorus (2.5-4.5) mg/dL 07/19/16 07/19/16 07/19/16 Range/Units 01:35 07:03 07:35 RBC 3.09 L (3.80-5.40) m/uL Hgb 9.5 L (11.4-16.0) gm/dL Hct 30.5 L (34.0-46.0) % MCHC 30.9 L (31.0-37.0) g/dL Neutrophils # 7.9 H (1.3-7.7) k/uL Potassium (3.5-5.1) mmol/L Chloride (98-107) mmol/L Carbon Dioxide (22-30) mmol/L BUN (7-17) mg/dL Creatinine (0.52-1.04) mg/dL Glucose (74-99) mg/dL POC Glucose (mg/dL) 200 H 150 H (75-99) mg/dL Phosphorus (2.5-4.5) mg/dL 07/19/16 07/19/16 07/19/16 Range/Units 07:35 11:27 12:35 RBC (3.80-5.40) m/uL Hgb (11.4-16.0) gm/dL Hct (34.0-46.0) % MCHC (31.0-37.0) g/dL Neutrophils # (1.3-7.7) k/uL Potassium 6.4 H* (3.5-5.1) mmol/L Chloride 116 H (98-107) mmol/L Carbon Dioxide 15 L (22-30) mmol/L BUN 58 H (7-17) mg/dL Creatinine 3.35 H (0.52-1.04) mg/dL Glucose 148 H (74-99) mg/dL POC Glucose (mg/dL) 173 H 203 H (75-99) mg/dL Phosphorus 5.3 H (2.5-4.5) mg/dL Assessment and Plan Plan: Impression Present on admission left facial droop suspect chronic in a patient who has had a prior CVA Present on admission UTI urine culture pending started on Levaquin Type 2 diabetes with episodes Episodes of hypoglycemia Physical debility Present on admission acute renal failure: Possibly related to obstructive uropathy and episode of hypotension Clinical dehydration History of coronary artery disease heart catheterization June 17 severe disease involving the RCA LAD and first om Chest pain present on admission with elevated troponin cardiology following Acute on chronic kidney disease chronic kidney disease stage IIIB History of peripheral vascular disease Present on admission episodes of hypo-tension: blood pressure medication on home Present on admission episodes of dizziness lightheadedness multifactorial likely due to UTI, hypoglycemia, and clinical dehydration Current every day smoker Hyperkalemia KRISTA inhibitor held Plan Cardiology recommendations no further cardiac workup no acute coronary process noted Nephrology following closely, appreciate recommendation Ultrasound kidneys reviewed Menjivar catheter inserted 07/18/16 Would allow for bladder decompression DVT and GI prophylaxis 10 units of IV insulin with 50 amp of D50. One dose of Kayexalate 30 repeat potassium in the afternoon Continue Levaquin 500 by mouth every 48 hours Would hold the KRISTA inhibitor elevated potassium with episodes of hypotension Further recommendations pending Continue supportive care otherwise Repeat lab work in the morning
--- NOTE | 2016-07-19 13:22 | XR ---
EXAMINATION TYPE: XR chest 1V portable DATE OF EXAM: 07/19/2016 12:59 PM Comparison: 07/14/2016 Clinical History: 70 year-old female history of CHF Findings: Low lung volumes crowding the vascular markings. However, interstitial opacities do appear situated f rom prior. Heart is mildly enlarged. No significant pleural effusion seen on this portable frontal vi ew. Impression: Hypoventilatory changes with accentuated interstitium and mild cardiomegaly. Correlate for mild CHF.
--- NOTE | 2016-07-19 13:39 | CT ---
EXAMINATION TYPE: CT brain wo con DATE OF EXAM: 07/19/2016 1:32 PM COMPARISON: 07/14/2016 HISTORY: 70-year-old female with altered Mental changes. TECHNIQUE: Examination was done in axial plane without intravenous contrast. Coronal and sagittal r econstructions performed. CT DLP: 1106 mGycm Automated exposure control for dose reduction was used. FINDINGS: There is no evidence of acute intracranial hemorrhage, acute ischemic changes, mass, mass-effect, or extra-axial fluid collection. There is no effacement of cerebral sulci or basal subarachnoid cister ns. There is no hydrocephalus. There is no midline shift. Urban-white matter distinction is preserv ed. Similar mild cortical volume loss Air-fluid levels persist in the sphenoid sinuses and right maxillary sinus. Moderate mucosal thickeni ng posterior left maxillary sinus. Mastoid air cells pneumatized. Orbits and globes are intact. IMPRESSION: 1. No acute intracranial abnormality seen. 2. Correlate for acute on chronic maxillary and sphenoid sinus disease.
[2016-07-19 13:57] LABS: Glucose,Whole Blood 190 mg/dL (75-99)
[2016-07-19] MEDS ORDERED: HYDROCORTISONE SUCCINATE 100 MG/2 ML VIAL IV STA (17:17)
[2016-07-19] MEDS ORDERED: SODIUM BICARB 8.4% 50 ML SYR (1 MEQ/ML) IV ONE (17:28)
[2016-07-19 17:36] LABS: Glucose,Whole Blood 193 mg/dL (75-99)
[2016-07-19 17:45] LABS: ABG PCO2 46 mmHg (35-45); ABG PO2 88 mmHg (83-108)
[2016-07-19 17:46] LABS: ABG Base Excess -9.2 mmol/L; ABG HCO3 17 mmol/L (21-25); ABG TCO2 19 mmol/L (19-24)
[2016-07-19] MEDS: DEXTROSE 5% IN WATER 1,000 ML with SODIUM BICARB (1 MEQ/ML) 150 ML IV SCH (18:18)
--- NOTE | 2016-07-19 18:23 | P.CNPUL ---
History of Present Illness Consult date: 07/19/16 Requesting physician: Mallory Hernandez Reason for consult: other (Mental status change, patient was admitted to the ICU ) Chief complaint: Dizziness. History of present illness: This is a 70-year-old female with history of multiple medical problems including coronary artery disease, COPD, CVA/TIA, diabetes, deep vein thrombosis , hypertension, osteoarthritis, and chronic renal disease. Patient is also known to have history of peripheral vessel occlusive disease. She was admitted initially on 07/15/2016 with a chief complaint of dizziness. Patient was brought in with dizzy spells and generalized weakness. Apparently she has not been feeling well for a week or so prior to her admission. Upon presentation, her sugar was low at 60. Patient was given dextrose. And she was also noted to have low blood pressure at the time. Patient received a fluid boluses, and she was initially admitted to the hospital. Since admission, her mental status had been waxing and waning, and she was seen by many consultants during this admission including cardiology, neurology, and nephrology. The clinical nursing director addressed her hypertension and her generalized chest pain which was felt to be musculoskeletal pain. I recommended conservative measures. The neurologist addressed her chronic left facial droop, and felt that the patient had previous CVA, wasn't clear whether her facial droop is acute or chronic. CT of the brain showed no acute intracranial process. There was some mild atrophic changes bilaterally. And maxillary sinusitis. Recommended Plavix daily by mouth. And the neurological checks. Then creosoting engineer address and acute kidney injury, and recommended gentle hydration with saline at 75 ML per hour. He also recommended checking for possible interstitial nephritis and urine eosinophils. Intermittently since admission the patient has been noted to be lethargic, and today she was more lethargic than usual. Hence arrangements were made to transfer the patient to the intensive care unit. I evaluated the patient in the ICU, and she was definitely lethargic. I recommended blood work to be done included ABG, ammonia level, blood sugar, and serum cortisol level. Increase are all pending, however the ABG showed a pO2 of 88 pCO2 of 46 pH of 7.20 hence I recommended a sodium bicarb drip for her hyperchloremic metabolic acidosis. The rest of the labs are pending. Patient was also noted to have a possible UTI, she is now on Levaquin. Review of Systems ROS unobtainable: due to mental status Past Medical History Past Medical History: Asthma, Coronary Artery Disease (CAD), Chest Pain / Angina , COPD, CVA/TIA, Diabetes Mellitus, Deep Vein Thrombosis (DVT), Hyperlipidemia, Hypertension, Myocardial Infarction (DC), Osteoarthritis (OA), Pneumonia, Renal Disease Additional Past Medical History / Comment(s): Recent hospitalizations with acute exacerbation COPD/purulent bronchitis and UTI, IDDM type II, DVT bilateral lower legs, cardiac murmur, congenital single right kidney, R nephrolithiasis per 05/2016 [place], difficulty sleeping, clausterphobia, CVA, falls. 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 Past Psychological History: Anxiety, Depression Additional Psychological History / Comment(s): pt stated has some mild depression d/t medical problems but not hopeless. Denies any thoughts of harming self or others, no suicidal ideations. Pt resides in an apartment. She uses a cane or a wheelchair. She does not drive. She has a legal guardian, Anna Saavedra. She states her LG has a wine cellar stock clerk assigned to her and that this wine cellar stock clerk is suppose to take her to appointments. Money Order Clerk contacted LG, Angelica Dai (Anna Fongleonor not in office). LG states concern for pt returning to independent living due to pt being admitted to hospital often. LG states pt just left [facility] [place] 07/06/16. Smoking Status: Current every day smoker Past Alcohol Use History: None Reported Additional Past Alcohol Use History / Comment(s): Patient is a smoker of 2 packs per day for 55 years. She denies any medical marijuana, marijuana, street drug use. She denies any alcohol use or abuse. She has been on disability for long period of time. She is currently living alone. Past Drug Use History: None Reported - Past Family History Mother Family Medical History: Cancer, Diabetes Mellitus, Myocardial Infarction (DC) Additional Family Medical History / Comment(s): from aortic anurysm Father Family Medical History: Renal Disease Medications and Allergies Home Medications Medication Instructions Recorded Confirmed Type Albuterol Inhaler [Ventolin Hfa 2 puff INHALATION RT-Q6H PRN 06/02/16 07/14/16 History Inhaler] Cilostazol [Pletal] 100 mg PO BID 06/02/16 07/14/16 History Clopidogrel [Plavix] 75 mg PO DAILY 06/02/16 07/14/16 History Ezetimibe [Zetia] 10 mg PO DAILY 06/02/16 07/14/16 History Fluticasone Nasal [place] [Flonase 2 spr EA NOSTRIL DAILY PRN 06/02/16 07/14/16 History Nasal [place]] Gabapentin 800 mg PO Q8H 06/02/16 07/14/16 History Sertraline HCl [Zoloft] 100 mg PO DAILY 06/02/16 07/14/16 History Famotidine [Pepcid] 20 mg PO BID 07/14/16 07/14/16 History HYDROcodone/APAP 10-325MG [[place] 1 tab PO Q8H PRN 07/14/16 07/14/16 History 10-325] Lisinopril [Zestril] 10 mg PO DAILY 07/14/16 07/14/16 History oxyCODONE ER [OxyCONTIN 15MG E.R] 15 mg PO DAILY 07/14/16 07/14/16 History Allergies Allergy/AdvReac Type Severity Reaction Status Date / Time Iodinated Contrast Media - Allergy Severe Anaphylaxis Verified 07/14/16 23:12 Oral and [Iodinated Contrast Media - IV Dye] Iodine and Iodide Containing Allergy Severe Rash/Hives/ Verified 07/14/16 23:12 Produc Swelling nitrofurantoin Allergy Severe Anaphylaxis Verified 07/14/16 23:12 [From Macrobid] aspirin Allergy Rash/Hives Verified 07/14/16 23:12 cephalexin monohydrate Allergy Swelling Verified 07/14/16 23:12 [From Keflex] ciprofloxacin Allergy Unknown Verified 07/14/16 23:12 Penicillins Allergy Swelling Verified 07/14/16 23:12 Sulfa (Sulfonamide Allergy Rash/Hives Verified 07/14/16 23:12 Antibiotics) Physical Exam Vitals: Vital Signs Temp Pulse Pulse Resp BP BP BP 07/19/16 18:00 93 16 95/49 07/19/16 17:30 95 16 99/49 07/19/16 17:00 97.4 F L 93 18 100/47 07/19/16 16:09 07/19/16 16:00 91 18 83/43 07/19/16 15:00 90 18 83/44 07/19/16 14:30 94 16 96/47 07/19/16 14:00 96 109/44 07/19/16 13:40 97.6 F 100 119/73 07/19/16 08:00 121 H 20 07/19/16 07:00 98.1 F 121 H 20 147/71 07/18/16 23:00 98.7 F 84 20 119/70 Pulse Ox 07/19/16 18:00 98 07/19/16 17:30 97 07/19/16 17:00 97 07/19/16 16:09 99 07/19/16 16:00 99 07/19/16 15:00 99 07/19/16 14:30 99 07/19/16 14:00 97 07/19/16 13:40 85 L 07/19/16 08:00 07/19/16 07:00 92 L 07/18/16 23:00 95 Intake and Output 07/19/16 07/19/16 07/19/16 06:59 14:59 22:59 Intake Total 75 300 Output Total 200 65 Balance -200 75 235 Intake: Intake, IV Titration 75 300 Amount Sodium Chloride 0.9% 1, 75 300 000 ml @ 75 mls/hr IV . [id number] [facility] Rx#:[id number] Output: Urine 200 65 Other: Voiding Method Indwelling Catheter Indwelling Catheter Indwelling Catheter Weight 67.6 kg Patient Weight 07/20/16 06:59 Weight 67.6 kg Physical Exam: Revealed a 70-year-old female in no distress, but noted to be quite lethargic, opens eyes on deep painful stimuli only. She was also noted to have intermittent muscle jerks. Patient does not seem to be in any form of respiratory distress. HEENT:[Neck is supple.] [No neck masses.] [No thyromegaly.] [No JVD.] Chest: [Clear throughout, no crackles, no rhonchi, no wheezes.] Cardiac Exam: [Normal S1 and S2, no S3 gallop, no murmur.] Abdomen: [Soft, nontender, no megaly, no rebound, no guarding, normal bowel sounds.] Extremities: [No clubbing, no edema, no cyanosis.] Neurological Exam: [Intermittent muscle jerks were noted. Patient is lethargic. Opens eyes to deep painful stimuli. Results - Laboratory Findings CBC and BMP: 07/19/16 07:35 07/19/16 15:18 ABG ABG pH 7.20 (7.35-7.45) L* 07/19/16 17:38 ABG pCO2 46 mmHg (35-45) H 07/19/16 17:38 ABG pO2 88 mmHg (83-108) 07/19/16 17:38 ABG O2 Saturation 94.0 % (94-97) 07/19/16 17:38 Abnormal lab findings: Abnormal Labs 07/15/16 07/15/16 07/15/16 07:54 11:19 11:19 RBC Hgb Hct MCHC Neutrophils # ABG pH ABG pCO2 ABG HCO3 Potassium Chloride Carbon Dioxide BUN Creatinine Glucose POC Glucose (mg/dL) 127 H Phosphorus AST Total Creatine Kinase 21 L Troponin I 0.052 H* Total Protein Albumin Triglycerides HDL Cholesterol 07/15/16 07/15/16 07/15/16 11:43 11:54 11:54 RBC 3.12 L Hgb 9.6 L Hct 30.0 L MCHC Neutrophils # ABG pH ABG pCO2 ABG HCO3 Potassium Chloride Carbon Dioxide 20 L BUN 38 H Creatinine 2.03 H Glucose 176 H POC Glucose (mg/dL) 202 H Phosphorus AST 12 L Total Creatine Kinase Troponin I Total Protein 6.0 L Albumin 3.1 L Triglycerides HDL Cholesterol 07/15/16 07/15/16 07/15/16 11:54 13:41 16:51 RBC Hgb Hct MCHC Neutrophils # ABG pH ABG pCO2 ABG HCO3 Potassium Chloride Carbon Dioxide BUN Creatinine Glucose POC Glucose (mg/dL) 129 H 219 H Phosphorus AST Total Creatine Kinase Troponin I Total Protein Albumin Triglycerides 205 H HDL Cholesterol 30 L 07/15/16 07/15/16 07/15/16 17:20 20:37 22:51 RBC Hgb Hct MCHC Neutrophils # ABG pH ABG pCO2 ABG HCO3 Potassium Chloride Carbon Dioxide BUN Creatinine Glucose POC Glucose (mg/dL) 308 H Phosphorus AST Total Creatine Kinase 23 L 26 L Troponin I 0.040 H* Total Protein Albumin Triglycerides HDL Cholesterol 07/16/16 07/16/16 07/16/16 05:59 05:59 06:09 RBC 3.00 L Hgb 9.0 L Hct 28.8 L MCHC Neutrophils # ABG pH ABG pCO2 ABG HCO3 Potassium Chloride 111 H Carbon Dioxide 18 L BUN 44 H Creatinine 3.01 H Glucose 155 H POC Glucose (mg/dL) 168 H Phosphorus AST 11 L Total Creatine Kinase Troponin I Total Protein 5.7 L Albumin 3.0 L Triglycerides HDL Cholesterol 07/16/16 07/16/16 07/16/16 12:03 16:25 21:34 RBC Hgb Hct MCHC Neutrophils # ABG pH ABG pCO2 ABG HCO3 Potassium Chloride Carbon Dioxide BUN Creatinine Glucose POC Glucose (mg/dL) 156 H 193 H 236 H Phosphorus AST Total Creatine Kinase Troponin I Total Protein Albumin Triglycerides HDL Cholesterol 07/17/16 07/17/16 07/17/16 06:53 08:42 08:42 RBC 2.89 L Hgb 9.0 L Hct 27.5 L MCHC Neutrophils # ABG pH ABG pCO2 ABG HCO3 Potassium 5.5 H Chloride 114 H Carbon Dioxide 18 L BUN 48 H Creatinine 3.41 H Glucose 132 H POC Glucose (mg/dL) 172 H Phosphorus AST 11 L Total Creatine Kinase Troponin I Total Protein 5.8 L Albumin 3.0 L Triglycerides HDL Cholesterol 07/17/16 07/17/16 07/17/16 13:41 17:11 22:04 RBC Hgb Hct MCHC Neutrophils # ABG pH ABG pCO2 ABG HCO3 Potassium Chloride Carbon Dioxide BUN Creatinine Glucose POC Glucose (mg/dL) 158 H 115 H 132 H Phosphorus AST Total Creatine Kinase Troponin I Total Protein Albumin Triglycerides HDL Cholesterol 07/18/16 07/18/16 07/18/16 06:44 10:40 12:05 RBC Hgb Hct MCHC Neutrophils # ABG pH ABG pCO2 ABG HCO3 Potassium 5.9 H Chloride 115 H Carbon Dioxide 15 L BUN 53 H Creatinine 3.50 H Glucose 131 H POC Glucose (mg/dL) 147 H 142 H Phosphorus 5.3 H AST Total Creatine Kinase Troponin I Total Protein Albumin Triglycerides HDL Cholesterol 02/07/18/16 07/18/16 17:14 21:05 23:11 RBC Hgb Hct MCHC Neutrophils # ABG pH ABG pCO2 ABG HCO3 Potassium Chloride Carbon Dioxide BUN Creatinine Glucose POC Glucose (mg/dL) 181 H 222 H 247 H Phosphorus AST Total Creatine Kinase Troponin I Total Protein Albumin Triglycerides HDL Cholesterol 07/19/16 07/19/16 07/19/16 01:35 07:03 07:35 RBC 3.09 L Hgb 9.5 L Hct 30.5 L MCHC 30.9 L Neutrophils # 7.9 H ABG pH ABG pCO2 ABG HCO3 Potassium Chloride Carbon Dioxide BUN Creatinine Glucose POC Glucose (mg/dL) 200 H 150 H Phosphorus AST Total Creatine Kinase Troponin I Total Protein Albumin Triglycerides HDL Cholesterol 07/19/16 07/19/16 07/19/16 07:35 11:27 12:35 RBC Hgb Hct MCHC Neutrophils # ABG pH ABG pCO2 ABG HCO3 Potassium 6.4 H* Chloride 116 H Carbon Dioxide 15 L BUN 58 H Creatinine 3.35 H Glucose 148 H POC Glucose (mg/dL) 173 H 203 H Phosphorus 5.3 H AST Total Creatine Kinase Troponin I Total Protein Albumin Triglycerides HDL Cholesterol 07/19/16 07/19/16 07/19/16 13:37 15:18 17:34 RBC Hgb Hct MCHC Neutrophils # ABG pH ABG pCO2 ABG HCO3 Potassium 6.0 H Chloride Carbon Dioxide BUN Creatinine Glucose POC Glucose (mg/dL) 190 H 193 H Phosphorus AST Total Creatine Kinase Troponin I Total Protein Albumin Triglycerides HDL Cholesterol 07/19/16 17:38 RBC Hgb Hct MCHC Neutrophils # ABG pH 7.20 L* ABG pCO2 46 H ABG HCO3 17 L Potassium Chloride Carbon Dioxide BUN Creatinine Glucose POC Glucose (mg/dL) Phosphorus AST Total Creatine Kinase Troponin I Total Protein Albumin Triglycerides HDL Cholesterol - Diagnostic Findings Chest x-ray: image reviewed (Mild prominence of the pulmonary vasculature, otherwise unremarkable.) Additional studies: CT brain showed no intracranial abnormality, patient had air-fluid levels in the sphenoid sinuses and in the right maxillary sinus. Consistent with possibly acute on chronic maxillary and sphenoid sinus disease. Assessment and Plan Plan: Impression: 1 suspect acute metabolic encephalopathy and mental status change. 2 intermittent episodes of hypotension and dehydration. 3 acute on chronic kidney disease/acute kidney injury. Patient is known to have chronic kidney disease stage IIIB. 4 history of severe underlying coronary artery disease based on a recent cardiac catheterization showing severe coronary artery disease involving RCA and LAD. 5 acute urinary tract infection, doubt sepsis. 6 acute hyperkalemia secondary to kidney injury and anna inhibitors which is presently on hold. 7 acute hyperchloremic metabolic acidosis, likely secondary to renal disease, again strongly doubt sepsis. Patient will be placed on sodium bicarb drip to correct her profound acidosis. I fully agree with the present treatment plan, continue hydration. Continue antibiotics. GI and DVT prophylaxis. Patient to be reassessed by neurology again. Check serum cortisol level may give the patient a trial of hydrocortisone. Once the serum cortisol has been drawn. Will closely monitor in the intensive care unit. Critical care time is 35 minutes. Time with Patient: Greater than 30
[2016-07-19] MEDS: ONDANSETRON 4 MG/2 ML VIAL IVP PRN (18:40)
[2016-07-19] MEDS: IPRATROPIUM-ALBUTEROL 3 ML NEB INHALATION PRN (19:14)
[2016-07-19] MEDS: ATORVASTATIN 40 MG TAB PO SCH (20:23)
[2016-07-19 20:31] LABS: Glucose,Whole Blood 227 mg/dL (75-99)
[2016-07-19 21:09] LABS: Potassium 5.2 mmol/L (3.5-5.1)
[2016-07-19 21:20] LABS: Calcium 8.6 mg/dL (8.4-10.2); Magnesium 1.7 mg/dL (1.6-2.3); Total Bilirubin 0.3 mg/dL (0.2-1.3); Total Protein 5.8 g/dL (6.3-8.2)
[2016-07-19 22:39] LABS: Creatine Kinase MB 23.8 ng/mL (0.0-2.4); Troponin I 2.23 ng/mL (0.000-0.034)
[2016-07-20] MEDS: GABAPENTIN 100 MG CAP PO SCH ×3 (00:12→17:29)
[2016-07-20 04:53] LABS: Basophils % (A) 0 %; CHCM 30.9; Eosinophils % (A) 0 %; HCT 26.5 % (34.0-46.0); HDW 3.07; HGB 8.3 gm/dL (11.4-16.0); Hypochromasia Moderate; Luc # (Auto) 0.03; Luc % (Auto) 1; Lymphocytes # (A) 0.5 k/uL (1.0-4.8); Lymphocytes % (A) 10 %; MCH 30.5 pg (25.0-35.0); MCHC 31.4 g/dL (31.0-37.0); MCV 97.4 fL (80.0-100.0); Mean Platelet Volume 6.8; Monocytes # (A) 0.2 k/uL (0-1.0); Monocytes % (A) 4 %; Neutrophils # (A) 3.9 k/uL (1.3-7.7); Neutrophils % (A) 85 %; RBC 2.72 m/uL (3.80-5.40); RDW 13.6 % (11.5-15.5); WBC 4.6 k/uL (3.8-10.6)
[2016-07-20 05:12] LABS: Calcium 8.1 mg/dL (8.4-10.2); Magnesium 1.7 mg/dL (1.6-2.3); Phosphorous 4.8 mg/dL (2.5-4.5); Potassium 4.7 mmol/L (3.5-5.1)
[2016-07-20] MEDS: SODIUM CHLORIDE 0.9% 1,000 ML IV SCH ×2 (05:56→09:02)
[2016-07-20 07:48] LABS: Glucose,Whole Blood 253 mg/dL (75-99)
[2016-07-20] MEDS: CILOSTAZOL 100 MG TAB PO SCH (08:33)
[2016-07-20] MEDS: SERTRALINE 100 MG TAB PO SCH (08:33)
[2016-07-20] MEDS: SODIUM BICARBONATE TAB 650 MG TAB PO SCH ×2 (08:34→20:02)
[2016-07-20] MEDS: EZETIMIBE 10 MG TAB PO SCH (08:34)
[2016-07-20] MEDS: FAMOTIDINE 20 MG TAB PO SCH (08:34)
[2016-07-20] MEDS: HEPARIN SODIUM,PORCINE 5,000 UNIT/ML 1 ML VIAL SQ SCH ×2 (08:34→20:02)
[2016-07-20] MEDS: INSULIN LISPRO (humaLOG) 300 UNIT/3 ML VIAL SQ SCH ×4 (08:55→22:22)
[2016-07-20] MEDS: CLOPIDOGREL 75 MG TAB PO SCH (09:03)
--- NOTE | 2016-07-20 09:23 | PN ---
Mrs. Maravilla is a 70-year-old female with known history of coronary artery disease, history of hypertension, hyperlipidemia, who presented initially with atypical chest pain and transient hypotension. She was transferred back to the ICU from the medical floor because of episode of hypertension, change in mental status. Her troponin is elevated. She has generalized chest discomfort, not localized. She feels tired and dyspneic. She denies any dizziness or palpitation. Her blood pressure has been under better control. She has continued to be on the Plavix, Pletal, Lipitor 40 mg daily, Zetia 10 mg daily and sertraline. PHYSICAL EXAMINATION: Her blood pressure is running in the 20s with the heart rate in the 90s. LUNGS: No wheezes. HEART: Regular rate and rhythm, S1, S2, no S3, with a systolic murmur. No diastolic murmur. ABDOMEN: Soft, nontender. EXTREMITIES: No edema. Lab data revealed BUN and creatinine 61 and 2.5. Potassium 4.7. Hemoglobin of 8.3, which is lower than her admission number. Her troponin is up to 2.2. Her EKG shows no acute changes. IMPRESSION: 1. Non- ST segment elevation myocardial infarction in a patient with known history of coronary artery disease. 2. Renal failure. 3. Anemia. 4. Hypotension, resolved. RECOMMENDATIONS: From the cardiac standpoint, I will repeat her echocardiogram to evaluate the left ventricular systolic function. I will restart on low-dose beta marcy. Will follow her blood pressure. At this time, she is not a candidate for aggressive cardiac workup in view of the renal function abnormality. Will follow hemoglobin, which may be exacerbating her cardiac status.
[2016-07-20] MEDS: METOPROLOL TARTRATE 25 MG TAB PO SCH ×2 (10:00→20:02)
[2016-07-20] MEDS: oxyCODONE-APAP 10-325MG 1 EACH TAB PO PRN (11:06)
[2016-07-20 12:25] LABS: Glucose,Whole Blood 195 mg/dL (75-99)
--- NOTE | 2016-07-20 13:19 | P.PN ---
Subjective Principal diagnosis: Acute kidney injury Patient was noted to be less responsive yesterday and of course stroke was called the computed tomography scan of the brain showed no acute findings. She was transferred to the intensive care unit. Her lab work shows significantly elevated troponin. 12-lead EKG showed no acute ischemic changes. Patient herself denies any chest pain at this time. She is awake and alert today. She does not recall what happened last night. She is hemodynamically stable. Objective - Vital Signs Vital signs: Vital Signs Temp 99.5 F 07/20/16 08:00 Pulse 93 07/20/16 09:00 Resp 16 07/20/16 08:00 BP 124/61 07/20/16 09:00 Pulse Ox 97 07/20/16 09:00 Intake & Output 07/19/16 07/20/16 07/20/16 18:59 06:59 18:59 Intake Total 450 825 525 Output Total 115 361 320 Balance 335 464 205 Weight 67.6 kg 70 kg Intake: Intake, IV Titration 450 825 525 Amount Dextrose 5% in Water 1, 75 825 450 000 ml @ 75 mls/hr IV . [id number] [facility] with Sodium Bicarb (1 Meq/ml) 150 ml Rx#:[id number] Sodium Chloride 0.45% 1, 75 000 ml @ 75 mls/hr IV . [id number] [facility] with Sodium Bicarb (1 Meq/ml) 150 ml Rx#:[id number] Sodium Chloride 0.9% 1, 375 000 ml @ 75 mls/hr IV . [id number] [facility] Rx#:[id number] Output: Urine 115 361 320 Other: Voiding Method Indwelling Catheter Indwelling Catheter Indwelling Catheter # Voids 0 - Exam General: The patient is awake and alert, in no distress Eye: there is normal conjunctiva bilaterally. Neck: The neck is supple, there is no JVD. Cardiovascular: Normal S1-S2, no S3-S4, no murmurs. Respiratory: Lungs clear to auscultation bilaterally Gastrointestinal: Abdomen is soft, nontender Musculoskeletal: There is no pedal edema. Neurological:. Speech is normal. Skin: Skin is warm and dry - Labs CBC & Chem 7: 07/20/16 04:42 07/20/16 04:42 Labs: Abnormal Lab Results - Last 24 Hours (Table) 02/07/19/16 07/19/16 Range/Units 13:37 15:18 17:34 RBC (3.80-5.40) m/uL Hgb (11.4-16.0) gm/dL Hct (34.0-46.0) % Lymphocytes # (1.0-4.8) k/uL D-Dimer (<0.60) mg/L FEU ABG pH (7.35-7.45) ABG pCO2 (35-45) mmHg ABG HCO3 (21-25) mmol/L Sodium (137-145) mmol/L Potassium 6.0 H (3.5-5.1) mmol/L Chloride (98-107) mmol/L Carbon Dioxide (22-30) mmol/L BUN (7-17) mg/dL Creatinine (0.52-1.04) mg/dL Glucose (74-99) mg/dL POC Glucose (mg/dL) 190 H 193 H (75-99) mg/dL Calcium (8.4-10.2) mg/dL Phosphorus (2.5-4.5) mg/dL CK-MB (CK-2) (0.0-2.4) ng/mL Troponin I (0.000-0.034) ng/mL Total Protein (6.3-8.2) g/dL Albumin (3.5-5.0) g/dL 07/19/16 07/19/16 07/19/16 Range/Units 17:38 20:29 20:36 RBC (3.80-5.40) m/uL Hgb (11.4-16.0) gm/dL Hct (34.0-46.0) % Lymphocytes # (1.0-4.8) k/uL D-Dimer (<0.60) mg/L FEU ABG pH 7.20 L* (7.35-7.45) ABG pCO2 46 H (35-45) mmHg ABG HCO3 17 L (21-25) mmol/L Sodium 146 H (137-145) mmol/L Potassium 5.2 H (3.5-5.1) mmol/L Chloride 114 H (98-107) mmol/L Carbon Dioxide 20 L (22-30) mmol/L BUN 61 H (7-17) mg/dL Creatinine 2.90 H (0.52-1.04) mg/dL Glucose 230 H (74-99) mg/dL POC Glucose (mg/dL) 227 H (75-99) mg/dL Calcium (8.4-10.2) mg/dL Phosphorus (2.5-4.5) mg/dL CK-MB (CK-2) (0.0-2.4) ng/mL Troponin I (0.000-0.034) ng/mL Total Protein 5.8 L (6.3-8.2) g/dL Albumin 3.1 L (3.5-5.0) g/dL 07/19/16 07/19/16 07/20/16 Range/Units 21:45 21:45 04:42 RBC 2.72 L (3.80-5.40) m/uL Hgb 8.3 L (11.4-16.0) gm/dL Hct 26.5 L (34.0-46.0) % Lymphocytes # 0.5 L (1.0-4.8) k/uL D-Dimer 1.18 H (<0.60) mg/L FEU ABG pH (7.35-7.45) ABG pCO2 (35-45) mmHg ABG HCO3 (21-25) mmol/L Sodium (137-145) mmol/L Potassium (3.5-5.1) mmol/L Chloride (98-107) mmol/L Carbon Dioxide (22-30) mmol/L BUN (7-17) mg/dL Creatinine (0.52-1.04) mg/dL Glucose (74-99) mg/dL POC Glucose (mg/dL) (75-99) mg/dL Calcium (8.4-10.2) mg/dL Phosphorus (2.5-4.5) mg/dL CK-MB (CK-2) 23.8 H* (0.0-2.4) ng/mL Troponin I 2.230 H* (0.000-0.034) ng/mL Total Protein (6.3-8.2) g/dL Albumin (3.5-5.0) g/dL 07/20/16 07/20/16 07/20/16 Range/Units 04:42 04:42 07:46 RBC (3.80-5.40) m/uL Hgb (11.4-16.0) gm/dL Hct (34.0-46.0) % Lymphocytes # (1.0-4.8) k/uL D-Dimer (<0.60) mg/L FEU ABG pH (7.35-7.45) ABG pCO2 (35-45) mmHg ABG HCO3 (21-25) mmol/L Sodium 146 H (137-145) mmol/L Potassium (3.5-5.1) mmol/L Chloride 113 H (98-107) mmol/L Carbon Dioxide (22-30) mmol/L BUN 61 H (7-17) mg/dL Creatinine 2.50 H (0.52-1.04) mg/dL Glucose 269 H (74-99) mg/dL POC Glucose (mg/dL) 253 H (75-99) mg/dL Calcium 8.1 L (8.4-10.2) mg/dL Phosphorus 4.8 H (2.5-4.5) mg/dL CK-MB (CK-2) (0.0-2.4) ng/mL Troponin I 4.950 H* (0.000-0.034) ng/mL Total Protein (6.3-8.2) g/dL Albumin (3.5-5.0) g/dL 07/20/16 Range/Units 12:24 RBC (3.80-5.40) m/uL Hgb (11.4-16.0) gm/dL Hct (34.0-46.0) % Lymphocytes # (1.0-4.8) k/uL D-Dimer (<0.60) mg/L FEU ABG pH (7.35-7.45) ABG pCO2 (35-45) mmHg ABG HCO3 (21-25) mmol/L Sodium (137-145) mmol/L Potassium (3.5-5.1) mmol/L Chloride (98-107) mmol/L Carbon Dioxide (22-30) mmol/L BUN (7-17) mg/dL Creatinine (0.52-1.04) mg/dL Glucose (74-99) mg/dL POC Glucose (mg/dL) 195 H (75-99) mg/dL Calcium (8.4-10.2) mg/dL Phosphorus (2.5-4.5) mg/dL CK-MB (CK-2) (0.0-2.4) ng/mL Troponin I (0.000-0.034) ng/mL Total Protein (6.3-8.2) g/dL Albumin (3.5-5.0) g/dL Assessment and Plan Plan: Impression Non-ST elevation KS: Seen and evaluated by cardiology. Managed medically. Not a candidate for aggressive measures. Repeat echocardiogram ordered. Present on admission left facial droop suspect chronic in a patient who has had a prior CVA Present on admission UTI urine culture pending started on Levaquin Type 2 diabetes with episodes Episodes of hypoglycemia Physical debility Present on admission acute renal failure: Possibly related to obstructive uropathy and episode of hypotension Clinical dehydration History of coronary artery disease heart catheterization June 17 severe disease involving the RCA LAD and first om Chest pain present on admission with elevated troponin cardiology following Acute on chronic kidney disease chronic kidney disease stage IIIB History of peripheral vascular disease Present on admission episodes of hypo-tension: blood pressure medication on home Present on admission episodes of dizziness lightheadedness multifactorial likely due to UTI, hypoglycemia, and clinical dehydration Current every day smoker Hyperkalemia KRISTA inhibitor held Plan Awaiting repeat echocardiogram, cardiology following closely Nephrology following closely, appreciate recommendation Ultrasound kidneys reviewed Menjivar catheter inserted 07/18/16 Would allow for bladder decompression DVT and GI prophylaxis Continue Levaquin 500 by mouth every 48 hours Would hold the KRISTA inhibitor elevated potassium with episodes of hypotension Further recommendations pending Continue supportive care otherwise Repeat lab work in the morning May be transferred outside of the ICU to telemetry floor
[2016-07-20] MEDS: SODIUM CHLORIDE 0.45% 1,000 ML with SODIUM BICARB (1 MEQ/ML) 150 ML IV SCH ×2 (13:33)
[2016-07-20] MEDS: DEXTROSE 5% IN WATER 1,000 ML with SODIUM BICARB (1 MEQ/ML) 150 ML IV SCH (13:34)
--- NOTE | 2016-07-20 14:51 | P.PN ---
Subjective Principal diagnosis: Acute mental status change and metabolic encephalopathy This is a 70-year-old female with history of multiple medical problems including coronary artery disease, COPD, CVA/TIA, diabetes, deep vein thrombosis , hypertension, osteoarthritis, and chronic renal disease. Patient is also known to have history of peripheral vessel occlusive disease. She was admitted initially on 07/15/2016 with a chief complaint of dizziness. Patient was brought in with dizzy spells and generalized weakness. Apparently she has not been feeling well for a week or so prior to her admission. Upon presentation, her sugar was low at 60. Patient was given dextrose. And she was also noted to have low blood pressure at the time. Patient received a fluid boluses, and she was initially admitted to the hospital. Since admission, her mental status had been waxing and waning, and she was seen by many consultants during this admission including cardiology, neurology, and nephrology. The bowling ball weigher and packer addressed her hypertension and her generalized chest pain which was felt to be musculoskeletal pain. I recommended conservative measures. The neurologist addressed her chronic left facial droop, and felt that the patient had previous CVA, wasn't clear whether her facial droop is acute or chronic. CT of the brain showed no acute intracranial process. There was some mild atrophic changes bilaterally. And maxillary sinusitis. Recommended Plavix daily by mouth. And the neurological checks. Then food and drug inspector address and acute kidney injury, and recommended gentle hydration with saline at 75 ML per hour. He also recommended checking for possible interstitial nephritis and urine eosinophils. Intermittently since admission the patient has been noted to be lethargic, and today she was more lethargic than usual. Hence arrangements were made to transfer the patient to the intensive care unit. I evaluated the patient in the ICU, and she was definitely lethargic. I recommended blood work to be done included ABG, ammonia level, blood sugar, and serum cortisol level. Increase are all pending, however the ABG showed a pO2 of 88 pCO2 of 46 pH of 7.20 hence I recommended a sodium bicarb drip for her hyperchloremic metabolic acidosis. The rest of the labs are pending. Patient was also noted to have a possible UTI, she is now on Levaquin. Patient was reevaluated today on 07/20/2016, seems to be more awake, follows simple instructions, tearful and emotional. Patient made a significant improvement compared to yesterday. She is definitely more awake and more alert. And she has no idea what actually transpired in the last 24 hours. Labs were reviewed WBC count is 4.6 hemoglobin is 8.3 electrolytes are showing improvement. Her BUN is 61 creatinine is 2.5 and her bicarb is better compared to yesterday. Troponins are high, being addressed by cardiology on the case. Repeat CT of the brain was unremarkable. Objective - Vital Signs Vital signs: Vital Signs Temp 98.4 F 07/20/16 12:00 Pulse 75 07/20/16 13:00 Resp 16 07/20/16 12:00 BP 103/55 07/20/16 13:00 Pulse Ox 98 07/20/16 13:00 Intake & Output 07/19/16 07/20/16 07/20/16 18:59 06:59 18:59 Intake Total 450 825 600 Output Total 115 361 440 Balance 335 464 160 Weight 67.6 kg 70 kg Intake: Intake, IV Titration 450 825 600 Amount Dextrose 5% in Water 1, 75 825 450 000 ml @ 75 mls/hr IV . [id number] VINH with Sodium Bicarb (1 Meq/ml) 150 ml Rx#:[id number] Sodium Chloride 0.45% 1, 150 000 ml @ 75 mls/hr IV . [id number] VINH with Sodium Bicarb (1 Meq/ml) 150 ml Rx#:[id number] Sodium Chloride 0.9% 1, 375 000 ml @ 75 mls/hr IV . [id number] VINH Rx#:[id number] Output: Urine 115 361 440 Other: Voiding Method Indwelling Catheter Indwelling Catheter Indwelling Catheter # Voids 0 - Exam Physical Exam: Revealed a 70-year-old female in no distress HEENT:[Neck is supple.] [No neck masses.] [No thyromegaly.] [No JVD.] Chest: [Diminished breath sounds at the bases, no crackles or rhonchi or wheezes.] Cardiac Exam: [Normal S1 and S2, no S3 gallop, no murmur.] Abdomen: [Soft, nontender, no megaly, no rebound, no guarding, normal bowel sounds.] Extremities: [No clubbing, no edema, no cyanosis.] Neurological Exam: [No focal neurologic deficit.] - Labs CBC & Chem 7: 07/20/16 04:42 07/20/16 04:42 Labs: Abnormal Lab Results - Last 24 Hours (Table) 07/19/16 07/19/16 07/19/16 Range/Units 15:18 17:34 17:38 RBC (3.80-5.40) m/uL Hgb (11.4-16.0) gm/dL Hct (34.0-46.0) % Lymphocytes # (1.0-4.8) k/uL D-Dimer (<0.60) mg/L FEU ABG pH 7.20 L* (7.35-7.45) ABG pCO2 46 H (35-45) mmHg ABG HCO3 17 L (21-25) mmol/L Sodium (137-145) mmol/L Potassium 6.0 H (3.5-5.1) mmol/L Chloride (98-107) mmol/L Carbon Dioxide (22-30) mmol/L BUN (7-17) mg/dL Creatinine (0.52-1.04) mg/dL Glucose (74-99) mg/dL POC Glucose (mg/dL) 193 H (75-99) mg/dL Calcium (8.4-10.2) mg/dL Phosphorus (2.5-4.5) mg/dL CK-MB (CK-2) (0.0-2.4) ng/mL Troponin I (0.000-0.034) ng/mL Total Protein (6.3-8.2) g/dL Albumin (3.5-5.0) g/dL 07/19/16 07/19/16 07/19/16 Range/Units 20:29 20:36 21:45 RBC (3.80-5.40) m/uL Hgb (11.4-16.0) gm/dL Hct (34.0-46.0) % Lymphocytes # (1.0-4.8) k/uL D-Dimer 1.18 H (<0.60) mg/L FEU ABG pH (7.35-7.45) ABG pCO2 (35-45) mmHg ABG HCO3 (21-25) mmol/L Sodium 146 H (137-145) mmol/L Potassium 5.2 H (3.5-5.1) mmol/L Chloride 114 H (98-107) mmol/L Carbon Dioxide 20 L (22-30) mmol/L BUN 61 H (7-17) mg/dL Creatinine 2.90 H (0.52-1.04) mg/dL Glucose 230 H (74-99) mg/dL POC Glucose (mg/dL) 227 H (75-99) mg/dL Calcium (8.4-10.2) mg/dL Phosphorus (2.5-4.5) mg/dL CK-MB (CK-2) (0.0-2.4) ng/mL Troponin I (0.000-0.034) ng/mL Total Protein 5.8 L (6.3-8.2) g/dL Albumin 3.1 L (3.5-5.0) g/dL 07/19/16 07/20/16 07/20/16 Range/Units 21:45 04:42 04:42 RBC 2.72 L (3.80-5.40) m/uL Hgb 8.3 L (11.4-16.0) gm/dL Hct 26.5 L (34.0-46.0) % Lymphocytes # 0.5 L (1.0-4.8) k/uL D-Dimer (<0.60) mg/L FEU ABG pH (7.35-7.45) ABG pCO2 (35-45) mmHg ABG HCO3 (21-25) mmol/L Sodium 146 H (137-145) mmol/L Potassium (3.5-5.1) mmol/L Chloride 113 H (98-107) mmol/L Carbon Dioxide (22-30) mmol/L BUN 61 H (7-17) mg/dL Creatinine 2.50 H (0.52-1.04) mg/dL Glucose 269 H (74-99) mg/dL POC Glucose (mg/dL) (75-99) mg/dL Calcium 8.1 L (8.4-10.2) mg/dL Phosphorus 4.8 H (2.5-4.5) mg/dL CK-MB (CK-2) 23.8 H* (0.0-2.4) ng/mL Troponin I 2.230 H* (0.000-0.034) ng/mL Total Protein (6.3-8.2) g/dL Albumin (3.5-5.0) g/dL 07/20/16 07/20/16 07/20/16 Range/Units 04:42 07:46 12:24 RBC (3.80-5.40) m/uL Hgb (11.4-16.0) gm/dL Hct (34.0-46.0) % Lymphocytes # (1.0-4.8) k/uL D-Dimer (<0.60) mg/L FEU ABG pH (7.35-7.45) ABG pCO2 (35-45) mmHg ABG HCO3 (21-25) mmol/L Sodium (137-145) mmol/L Potassium (3.5-5.1) mmol/L Chloride (98-107) mmol/L Carbon Dioxide (22-30) mmol/L BUN (7-17) mg/dL Creatinine (0.52-1.04) mg/dL Glucose (74-99) mg/dL POC Glucose (mg/dL) 253 H 195 H (75-99) mg/dL Calcium (8.4-10.2) mg/dL Phosphorus (2.5-4.5) mg/dL CK-MB (CK-2) (0.0-2.4) ng/mL Troponin I 4.950 H* (0.000-0.034) ng/mL Total Protein (6.3-8.2) g/dL Albumin (3.5-5.0) g/dL Assessment and Plan Plan: Impression: 1 suspect acute metabolic encephalopathy and mental status change. Improving compared to yesterday. 2 intermittent episodes of hypotension and dehydration. Improving with hydration and her metabolic acidosis is definitely improved 3 acute on chronic kidney disease/acute kidney injury. Patient is known to have chronic kidney disease stage IIIB. 4 history of severe underlying coronary artery disease based on a recent cardiac catheterization showing severe coronary artery disease involving RCA and LAD. 5 acute urinary tract infection, doubt sepsis. 6 acute hyperkalemia secondary to kidney injury and anna inhibitors which is presently on hold. 7 acute hyperchloremic metabolic acidosis, likely secondary to renal disease, again strongly doubt sepsis. Patient will be placed on sodium bicarb drip to correct her profound acidosis. 8 acute non-ST elevation myocardial infarction is suspected. continue present treatment plan, continue hydration. Continue antibiotics. GI and DVT prophylaxis. Patient to be reassessed by neurology again. Check serum cortisol level may give the patient a trial of hydrocortisone. Serum cortisol was normal. Consider transferring the patient out of the ICU today. Patient should go to a cardiac floor considering her non-ST elevation myocardial infarction, strongly suspected. Time with Patient: Less than 30
[2016-07-20 17:22] LABS: Glucose,Whole Blood 122 mg/dL (75-99)
--- NOTE | 2016-07-20 19:58 | PN ---
Patient is seen for followup for acute kidney injury. She was admitted to the hospital initially with dizziness and weakness. She is being worked up by Neurology. She does have a prior history of CVA. Serum creatinine at baseline is about 1.3 with a solitary kidney. On this admission, serum creatinine had peaked to 3.5 mg/dL. Currently creatinine is on a downward trend and it is at 2.5 mg/dL today. On examination, blood pressure is 143/80, heart rate 87 per minute. She is afebrile. EXAMINATION OF THE HEART: S1 and S2. EXAMINATION OF LUNGS: Decreased breath sounds in bases. ABDOMEN: Soft, nontender. Examination of the lower extremities shows no significant edema. LABS: Sodium 146, potassium 4.7, chloride 113. CO2 is 23. Hemoglobin 8.3 g/dL. ASSESSMENT: 1. Acute kidney injury, acute tubular necrosis, currently improving. Patient is non-oliguric. 2. Metabolic acidosis, currently improved. Will discontinue the IV bicarb. 3. Hyperkalemia, currently improved. 4. Anemia with adequate iron studies. No active bleeding noted. 5. Urine retention with Menjivar catheter placement. 6. Chronic kidney disease with solitary kidney; baseline creatinine about 1.3. PLAN: Continue IV fluids. We can discontinue the sodium bicarb, as serum potassium and metabolic acidosis have improved. Patient is maintained on oral sodium bicarb well. Her sodium is slightly high.
[2016-07-20] MEDS: ATORVASTATIN 40 MG TAB PO SCH (20:02)
[2016-07-20 22:21] LABS: Glucose,Whole Blood 178 mg/dL (75-99)
[2016-07-20] MEDS: IPRATROPIUM-ALBUTEROL 3 ML NEB INHALATION PRN (22:53)
[2016-07-20] MEDS ORDERED: METOPROLOL TARTRATE 25 MG TAB PO STA (23:17)
[2016-07-20] MEDS ORDERED: FUROSEMIDE 10 MG/ML 4 ML VIAL IV STA (23:18)
[2016-07-20] MEDS: LORazepam 2 MG/ML SYRINGE IV PRN (23:28)
[2016-07-20 23:31] LABS: ABG PCO2 79 mmHg (35-45); ABG PO2 122 mmHg (83-108)
[2016-07-20 23:32] LABS: ABG Base Excess 2.3 mmol/L; ABG HCO3 30 mmol/L (21-25); ABG TCO2 32 mmol/L (19-24)
[2016-07-21] MEDS: GABAPENTIN 100 MG CAP PO SCH ×4 (01:07→22:30)
[2016-07-21] MEDS: SODIUM CHLORIDE 0.45% 1,000 ML with SODIUM BICARB (1 MEQ/ML) 150 ML IV SCH ×2 (04:36)
[2016-07-21 05:18] LABS: Basophils % (A) 0 %; CH 30.5; CHCM 32.5; Eosinophils # (A) 0.1 k/uL (0-0.7); Eosinophils % (A) 1 %; HCT 27.7 % (34.0-46.0); HDW 3.12; Hypochromasia Slight; Luc % (Auto) 1; Lymphocytes # (A) 0.9 k/uL (1.0-4.8); Lymphocytes % (A) 12 %; MCH 30.6 pg (25.0-35.0); MCHC 32.5 g/dL (31.0-37.0); MCV 94.3 fL (80.0-100.0); Mean Platelet Volume 7.4; Monocytes # (A) 0.4 k/uL (0-1.0); Monocytes % (A) 5 %; Neutrophils # (A) 5.9 k/uL (1.3-7.7); Neutrophils % (A) 80 %; RBC 2.93 m/uL (3.80-5.40); RDW 13.8 % (11.5-15.5); WBC 7.4 k/uL (3.8-10.6); WBC (Perox) 8.15
[2016-07-21 05:31] LABS: Calcium 8.3 mg/dL (8.4-10.2); Magnesium 1.5 mg/dL (1.6-2.3); Phosphorous 3.6 mg/dL (2.5-4.5); Potassium 4.2 mmol/L (3.5-5.1)
[2016-07-21] MEDS ORDERED: MAGNESIUM SULFATE-D5W PMX 1 GM in DEXTROSE/WATER 1 100ML.BAG IVPB ONE (06:07)
[2016-07-21 07:52] LABS: Glucose,Whole Blood 197 mg/dL (75-99)
[2016-07-21] MEDS: SODIUM BICARBONATE TAB 650 MG TAB PO SCH ×2 (08:47→22:29)
[2016-07-21] MEDS: METOPROLOL TARTRATE 25 MG TAB PO SCH (08:47)
[2016-07-21] MEDS: HEPARIN SODIUM,PORCINE 5,000 UNIT/ML 1 ML VIAL SQ SCH ×2 (08:47→22:29)
[2016-07-21] MEDS: LEVOFLOXACIN 500 MG TAB PO SCH (08:49)
[2016-07-21] MEDS: SERTRALINE 100 MG TAB PO SCH (08:49)
[2016-07-21] MEDS: EZETIMIBE 10 MG TAB PO SCH (08:49)
[2016-07-21] MEDS: CLOPIDOGREL 75 MG TAB PO SCH (08:50)
[2016-07-21] MEDS: INSULIN LISPRO (humaLOG) 300 UNIT/3 ML VIAL SQ SCH ×4 (08:51→23:18)
--- NOTE | 2016-07-21 09:37 | ECHOF ---
Referral Reason:mi MEASUREMENTS -------- HEIGHT: 152.4 cm WEIGHT: 69.8 kg BP: 133/62 RVIDd: 2.5 cm (< 3.3) IVSd: 1.2 cm (0.6 - 1.1) LVIDd: 4.9 cm (3.9 - 5.3) LVPWd: 1.2 cm (0.6 - 1.1) IVSs: 1.9 cm LVIDs: 3.6 cm LVPWs: 1.7 cm LA Diam: 3.7 cm (2.7 - 3.8) LAESV Index (A-L): 30.49 ml/m Ao Diam: 2.5 cm (2.0 - 3.7) AV Cusp: 1.3 cm (1.5 - 2.6) LA Diam: 3.4 cm (2.7 - 3.8) MV EXCURSION: 11.453 mm (> 18.000) MV EF SLOPE: 41 mm/s (70 - 150) EPSS: 0.9 cm MV E Abram: 1.10 m/s MV DecT: 140 ms MV A Abram: 1.37 m/s MV E/A Ratio: 0.80 RAP: 5.00 mmHg RVSP: 41.92 mmHg FINDINGS -------- Sinus rhythm. This was a technically adequate study. There is borderline concentric left ventricular hypertrophy. Overall left ventricular systolic function is moderately impaired with, an EF between 35 - 40 %. Basal anteroseptal LV wall motion is hypokinetic. Mid anteroseptal LV wall motion is hypokinetic. Apical anterior LV wall motion is hypokinetic. Apical lateral LV wall motion is hypokinetic. Apical inferior LV wall motion is hypokinetic. Apical septum LV wall motion is hypokinetic. The right ventricle is normal in size. LA is midly dilated 29-33ml/m2. The right atrium is normal in size. 1.5mg of Definity was utilized for enhancement of images Aortic valve is trileaflet and is mildly thickened. Mild mitral annular calcification present. Mild mitral regurgitation is present. Mild tricuspid regurgitation present. There is mild pulmonary hypertension. The right ventricular systolic pressure, as measured by Doppler, is 41.92mmHg. The pulmonic valve was not well visualized. The aortic root size is normal. Normal inferior vena cava with normal inspiratory collapse consistent with estimated right atrial pressure of 5 mmHg. Echo free space may represent effusion or a pericardial fat pad. CONCLUSIONS -------- 1. Sinus rhythm. 2. Apical septum LV wall motion is hypokinetic. 3. The right ventricle is normal in size. 4. LA is midly dilated 29-33ml/m2. 5. The right atrium is normal in size. 6. 1.5mg of Definity was utilized for enhancement of images 7. Aortic valve is trileaflet and is mildly thickened. 8. Mild mitral annular calcification present. 9. Mild mitral regurgitation is present. 10. Mild tricuspid regurgitation present. 11. There is mild pulmonary hypertension. 12. This was a technically adequate study. 13. The right ventricular systolic pressure, as measured by Doppler, is 41.92mmHg. 14. The pulmonic valve was not well visualized. 15. The aortic root size is normal. 16. Normal inferior vena cava with normal inspiratory collapse consistent with estimated right atrial pressure of 5 mmHg. 17. Echo free space may represent effusion or a pericardial fat pad. 18. There is borderline concentric left ventricular hypertrophy. 19. Overall left ventricular systolic function is moderately impaired with, an EF between 35 - 40 %. 20. Basal anteroseptal LV wall motion is hypokinetic. 21. Mid anteroseptal LV wall motion is hypokinetic. 22. Apical anterior LV wall motion is hypokinetic. 23. Apical lateral LV wall motion is hypokinetic. 24. Apical inferior LV wall motion is hypokinetic. STRAW HAT BRIM CUTTER OPERATOR: Lora Beaulieu RDCS
[2016-07-21 10:03] LABS: ABG PCO2 47 mmHg (35-45); ABG PH 7.47 (7.35-7.45)
[2016-07-21 10:04] LABS: ABG HCO3 33 mmol/L (21-25); ABG PO2 83 mmHg (83-108); ABG TCO2 35 mmol/L (19-24)
[2016-07-21] MEDS: FAMOTIDINE 20 MG TAB PO SCH (10:07)
[2016-07-21 11:52] LABS: Glucose,Whole Blood 204 mg/dL (75-99)
--- NOTE | 2016-07-21 13:01 | PN ---
Patient is seen for followup for acute kidney injury. She is currently maintained on IV fluids, renal function continues to improve. Patient was sleeping but she is easily arousable. Last night, she was with hypoxia and is currently maintained on BiPAP. Chest x-ray from 07/19 showed mild CHF. On examination, blood pressure is 176/89, heart rate of 86 per minute. She is afebrile. Examination of the heart, S1 and S2. Examination of the lungs, bilateral breath sounds are heard. Decreased breath sounds in the bases. Abdomen is soft, nontender, obese. Examination of the lower extremities shows no significant edema. ASSISTANT HEALTH EDUCATOR exam shows the patient has been moving all 4 extremities. Labs show sodium 147, potassium 4.2. Serum creatinine 1.8, BUN is at 60, hemoglobin 9.0 g/dL, magnesium 1.5. ASSESSMENT: 1. Acute kidney injury, currently improving. Encourage patient to increase oral intake. I will discontinue the IV bicarb We can maintain her on IV fluids at about 50 mL an hour and will also get a chest x-ray from today. If there is evidence of pulmonary vascular congestion, ( ) will be discontinued. Patient did receive one dose of Lasix last night. 2. Mild hypernatremia, expect improvement with discontinuation of bicarb drip, which is in half normal saline ( ). 3. Metabolic acidosis, currently improved. 4. Hyperkalemia, currently improved. 5. Urine retention with Menjivar catheter placement with good urine output. 6. Chronic kidney disease with solitary kidney, baseline creatinine about 1.3 mg/dL. Etiology is likely diabetic nephropathy as patient does have proteinuria. PLAN: Discontinue IV bicarb, chest x-ray. Consider discontinuation of IV fluids if patient is eating or if there is evidence of pulmonary vascular congestion on the chest x-ray.
[2016-07-21] MEDS: SODIUM CHLORIDE 0.45% 1,000 ML IV SCH (13:05)
--- NOTE | 2016-07-21 13:11 | XR ---
EXAMINATION TYPE: XR chest 1V DATE OF EXAM: 07/21/2016 12:57 PM COMPARISON: 19 July 2016 chest x-ray HISTORY: Congestive heart failure TECHNIQUE: Single frontal view of the chest is obtained. FINDINGS: Patient is rotated. Heart is enlarged. Interstitium is increased. No pneumothorax. Difficu lt to exclude basilar airspace disease. There are overlying cardiac leads. IMPRESSION: Correlate for pulmonary venous hypertension and interstitial edema, volume overload. The re may be basilar edema versus pneumonia or effusion.
[2016-07-21] MEDS: oxyCODONE-APAP 10-325MG 1 EACH TAB PO PRN ×2 (13:28→22:30)
--- NOTE | 2016-07-21 14:08 | P.PN ---
Subjective Principal diagnosis: Acute kidney injury Patient is awake and alert today. She is complaining of generalized pain. Kidney function is improving. Her mentation is significantly better compared to yesterday. Objective - Vital Signs Vital signs: Vital Signs Temp 99.2 F 07/21/16 12:00 Pulse 86 07/21/16 12:00 Resp 15 07/21/16 12:00 BP 176/89 07/21/16 12:00 Pulse Ox 98 07/21/16 12:00 Intake & Output 07/20/16 07/21/16 07/21/16 18:59 06:59 18:59 Intake Total 600 1275 240 Output Total 440 1515 285 Balance 160 -240 -45 Weight 71.2 kg 71.2 kg Intake: Intake, IV Titration 600 1125 240 Amount Dextrose 5% in Water 1, 450 000 ml @ 75 mls/hr IV . [id number] VINH with Sodium Bicarb (1 Meq/ml) 150 ml Rx#:[id number] Sodium Chloride 0.45% 1, 240 000 ml @ 60 mls/hr IV . [id number] VINH Rx#:[id number] Sodium Chloride 0.45% 1, 150 1125 000 ml @ 75 mls/hr IV . [id number] VINH with Sodium Bicarb (1 Meq/ml) 150 ml Rx#:[id number] Oral 150 Output: Urine 440 1515 285 Other: Voiding Method Indwelling Catheter Indwelling Catheter Indwelling Catheter # Voids 0 0 - Exam General: The patient is awake and alert, in no distress Eye: there is normal conjunctiva bilaterally. Neck: The neck is supple, there is no JVD. Cardiovascular: Normal S1-S2, no S3-S4, no murmurs. Respiratory: Lungs clear to auscultation bilaterally Gastrointestinal: Abdomen is soft, nontender Musculoskeletal: There is no pedal edema. Neurological:. Speech is normal. Skin: Skin is warm and dry - Labs CBC & Chem 7: 07/21/16 04:58 07/21/16 04:58 Labs: Abnormal Lab Results - Last 24 Hours (Table) 07/20/16 07/20/16 07/20/16 Range/Units 17:20 22:20 23:31 RBC (3.80-5.40) m/uL Hgb (11.4-16.0) gm/dL Hct (34.0-46.0) % Lymphocytes # (1.0-4.8) k/uL ABG pH 7.20 L* (7.35-7.45) ABG pCO2 79 H* (35-45) mmHg ABG pO2 122 H (83-108) mmHg ABG HCO3 30 H (21-25) mmol/L ABG Total CO2 32 H (19-24) mmol/L ABG O2 Saturation 98.0 H (94-97) % Sodium (137-145) mmol/L Carbon Dioxide (22-30) mmol/L BUN (7-17) mg/dL Creatinine (0.52-1.04) mg/dL Glucose (74-99) mg/dL POC Glucose (mg/dL) 122 H 178 H (75-99) mg/dL Calcium (8.4-10.2) mg/dL Magnesium (1.6-2.3) mg/dL 07/21/16 07/21/16 07/21/16 Range/Units 04:58 04:58 07:51 RBC 2.93 L (3.80-5.40) m/uL Hgb 9.0 L (11.4-16.0) gm/dL Hct 27.7 L (34.0-46.0) % Lymphocytes # 0.9 L (1.0-4.8) k/uL ABG pH (7.35-7.45) ABG pCO2 (35-45) mmHg ABG pO2 (83-108) mmHg ABG HCO3 (21-25) mmol/L ABG Total CO2 (19-24) mmol/L ABG O2 Saturation (94-97) % Sodium 147 H (137-145) mmol/L Carbon Dioxide 33 H (22-30) mmol/L BUN 50 H (7-17) mg/dL Creatinine 1.80 H (0.52-1.04) mg/dL Glucose 209 H (74-99) mg/dL POC Glucose (mg/dL) 197 H (75-99) mg/dL Calcium 8.3 L (8.4-10.2) mg/dL Magnesium 1.5 L (1.6-2.3) mg/dL 07/21/16 07/21/16 Range/Units 09:55 11:51 RBC (3.80-5.40) m/uL Hgb (11.4-16.0) gm/dL Hct (34.0-46.0) % Lymphocytes # (1.0-4.8) k/uL ABG pH 7.47 H (7.35-7.45) ABG pCO2 47 H (35-45) mmHg ABG pO2 (83-108) mmHg ABG HCO3 33 H (21-25) mmol/L ABG Total CO2 35 H (19-24) mmol/L ABG O2 Saturation (94-97) % Sodium (137-145) mmol/L Carbon Dioxide (22-30) mmol/L BUN (7-17) mg/dL Creatinine (0.52-1.04) mg/dL Glucose (74-99) mg/dL POC Glucose (mg/dL) 204 H (75-99) mg/dL Calcium (8.4-10.2) mg/dL Magnesium (1.6-2.3) mg/dL Assessment and Plan Plan: Impression Non-ST elevation IA: Seen and evaluated by cardiology. Managed medically. Not a candidate for aggressive measures. Repeat echocardiogram ordered. Present on admission left facial droop suspect chronic in a patient who has had a prior CVA Present on admission UTI urine culture showing contamination. Currently on Levaquin Type 2 diabetes with episodes Episodes of hypoglycemia Physical debility Present on admission acute renal failure: Possibly related to obstructive uropathy and episode of hypotension Clinical dehydration History of coronary artery disease heart catheterization June 17 severe disease involving the RCA LAD and first om Chest pain present on admission with elevated troponin cardiology following Acute on chronic kidney disease chronic kidney disease stage IIIB History of peripheral vascular disease Present on admission episodes of hypo-tension: blood pressure medication being restarted gradually Present on admission episodes of dizziness lightheadedness multifactorial likely due to UTI, hypoglycemia, and clinical dehydration Current every day smoker Hyperkalemia KRISTA inhibitor held Plan Echocardiogram showed diffuse hypokinesia noted and report, ejection fraction 35 %, cardiology following closely Nephrology following closely, appreciate recommendation Ultrasound kidneys reviewed Menjivar catheter inserted 07/18/16 Would allow for bladder decompression DVT and GI prophylaxis Continue Levaquin 500 by mouth every 48 hours Would hold the KRISTA inhibitor elevated potassium with episodes of hypotension Further recommendations pending Continue supportive care otherwise Repeat lab work in the morning May be transferred outside of the ICU to telemetry floor
--- NOTE | 2016-07-21 15:36 | P.PN ---
Subjective Principal diagnosis: Acute mental status change and metabolic encephalopathy This is a 70-year-old female with history of multiple medical problems including coronary artery disease, COPD, CVA/TIA, diabetes, deep vein thrombosis , hypertension, osteoarthritis, and chronic renal disease. Patient is also known to have history of peripheral vessel occlusive disease. She was admitted initially on 07/15/2016 with a chief complaint of dizziness. Patient was brought in with dizzy spells and generalized weakness. Apparently she has not been feeling well for a week or so prior to her admission. Upon presentation, her sugar was low at 60. Patient was given dextrose. And she was also noted to have low blood pressure at the time. Patient received a fluid boluses, and she was initially admitted to the hospital. Since admission, her mental status had been waxing and waning, and she was seen by many consultants during this admission including cardiology, neurology, and nephrology. The real property evaluator addressed her hypertension and her generalized chest pain which was felt to be musculoskeletal pain. I recommended conservative measures. The neurologist addressed her chronic left facial droop, and felt that the patient had previous CVA, wasn't clear whether her facial droop is acute or chronic. CT of the brain showed no acute intracranial process. There was some mild atrophic changes bilaterally. And maxillary sinusitis. Recommended Plavix daily by mouth. And the neurological checks. Then jet pilot address and acute kidney injury, and recommended gentle hydration with saline at 75 ML per hour. He also recommended checking for possible interstitial nephritis and urine eosinophils. Intermittently since admission the patient has been noted to be lethargic, and today she was more lethargic than usual. Hence arrangements were made to transfer the patient to the intensive care unit. I evaluated the patient in the ICU, and she was definitely lethargic. I recommended blood work to be done included ABG, ammonia level, blood sugar, and serum cortisol level. Increase are all pending, however the ABG showed a pO2 of 88 pCO2 of 46 pH of 7.20 hence I recommended a sodium bicarb drip for her hyperchloremic metabolic acidosis. The rest of the labs are pending. Patient was also noted to have a possible UTI, she is now on Levaquin. Patient was reevaluated today on 07/20/2016, seems to be more awake, follows simple instructions, tearful and emotional. Patient made a significant improvement compared to yesterday. She is definitely more awake and more alert. And she has no idea what actually transpired in the last 24 hours. Labs were reviewed WBC count is 4.6 hemoglobin is 8.3 electrolytes are showing improvement. Her BUN is 61 creatinine is 2.5 and her bicarb is better compared to yesterday. Troponins are high, being addressed by cardiology on the case. Repeat CT of the brain was unremarkable. Reevaluated today on 07/21/2016, patient is awake, however last night she developed an episode of hypercapnia with elevated pCO2 and low pH, patient was placed on BiPAP. Repeat ABG this morning on BiPAP, showed significant improvement in his overall blood gases. PCO2 is down to 46, pH is now normal, and I plan to discontinue BiPAP and place her back on nasal cannula. Chest x- ray is suggestive of mild interstitial edema, mostly by basilar. Hence I may cut down on the IV fluid, and watch cautiously before adding any diuretics. Objective - Vital Signs Vital signs: Vital Signs Temp 99.2 F 07/21/16 12:00 Pulse 86 07/21/16 12:00 Resp 15 07/21/16 12:00 BP 176/89 07/21/16 12:00 Pulse Ox 98 07/21/16 12:00 Intake & Output 07/20/16 07/21/16 07/21/16 18:59 06:59 18:59 Intake Total 600 1275 240 Output Total 440 1515 285 Balance 160 -240 -45 Weight 71.2 kg 71.2 kg Intake: Intake, IV Titration 600 1125 240 Amount Dextrose 5% in Water 1, 450 000 ml @ 75 mls/hr IV . [id number] [facility] with Sodium Bicarb (1 Meq/ml) 150 ml Rx#:[id number] Sodium Chloride 0.45% 1, 240 000 ml @ 60 mls/hr IV . [id number] [facility] Rx#:[id number] Sodium Chloride 0.45% 1, 150 1125 000 ml @ 75 mls/hr IV . [id number] [facility] with Sodium Bicarb (1 Meq/ml) 150 ml Rx#:[id number] Oral 150 Output: Urine 440 1515 285 Other: Voiding Method Indwelling Catheter Indwelling Catheter Indwelling Catheter # Voids 0 0 - Exam Physical Exam: Revealed a 70-year-old female in no distress HEENT:[Neck is supple.] [No neck masses.] [No thyromegaly.] [No JVD.] Chest: [Diminished breath sounds at the bases, no crackles or rhonchi or wheezes.] Cardiac Exam: [Normal S1 and S2, no S3 gallop, no murmur.] Abdomen: [Soft, nontender, no megaly, no rebound, no guarding, normal bowel sounds.] Extremities: [No clubbing, no edema, no cyanosis.] Neurological Exam: [No focal neurologic deficit.] - Labs CBC & Chem 7: 07/21/16 04:58 07/21/16 04:58 Labs: Abnormal Lab Results - Last 24 Hours (Table) 07/20/16 07/20/16 07/20/16 Range/Units 17:20 22:20 23:31 RBC (3.80-5.40) m/uL Hgb (11.4-16.0) gm/dL Hct (34.0-46.0) % Lymphocytes # (1.0-4.8) k/uL ABG pH 7.20 L* (7.35-7.45) ABG pCO2 79 H* (35-45) mmHg ABG pO2 122 H (83-108) mmHg ABG HCO3 30 H (21-25) mmol/L ABG Total CO2 32 H (19-24) mmol/L ABG O2 Saturation 98.0 H (94-97) % Sodium (137-145) mmol/L Carbon Dioxide (22-30) mmol/L BUN (7-17) mg/dL Creatinine (0.52-1.04) mg/dL Glucose (74-99) mg/dL POC Glucose (mg/dL) 122 H 178 H (75-99) mg/dL Calcium (8.4-10.2) mg/dL Magnesium (1.6-2.3) mg/dL 07/21/16 07/21/16 07/21/16 Range/Units 04:58 04:58 07:51 RBC 2.93 L (3.80-5.40) m/uL Hgb 9.0 L (11.4-16.0) gm/dL Hct 27.7 L (34.0-46.0) % Lymphocytes # 0.9 L (1.0-4.8) k/uL ABG pH (7.35-7.45) ABG pCO2 (35-45) mmHg ABG pO2 (83-108) mmHg ABG HCO3 (21-25) mmol/L ABG Total CO2 (19-24) mmol/L ABG O2 Saturation (94-97) % Sodium 147 H (137-145) mmol/L Carbon Dioxide 33 H (22-30) mmol/L BUN 50 H (7-17) mg/dL Creatinine 1.80 H (0.52-1.04) mg/dL Glucose 209 H (74-99) mg/dL POC Glucose (mg/dL) 197 H (75-99) mg/dL Calcium 8.3 L (8.4-10.2) mg/dL Magnesium 1.5 L (1.6-2.3) mg/dL 07/21/16 07/21/16 Range/Units 09:55 11:51 RBC (3.80-5.40) m/uL Hgb (11.4-16.0) gm/dL Hct (34.0-46.0) % Lymphocytes # (1.0-4.8) k/uL ABG pH 7.47 H (7.35-7.45) ABG pCO2 47 H (35-45) mmHg ABG pO2 (83-108) mmHg ABG HCO3 33 H (21-25) mmol/L ABG Total CO2 35 H (19-24) mmol/L ABG O2 Saturation (94-97) % Sodium (137-145) mmol/L Carbon Dioxide (22-30) mmol/L BUN (7-17) mg/dL Creatinine (0.52-1.04) mg/dL Glucose (74-99) mg/dL POC Glucose (mg/dL) 204 H (75-99) mg/dL Calcium (8.4-10.2) mg/dL Magnesium (1.6-2.3) mg/dL Assessment and Plan Plan: Impression: 1 suspect acute metabolic encephalopathy and mental status change. Steadily improving over the last 2 days 2 intermittent episodes of hypotension and dehydration. Improving with hydration and her metabolic acidosis is corrected, sodium bicarb has been discontinued 3 acute on chronic kidney disease/acute kidney injury. Patient is known to have chronic kidney disease stage IIIB. 4 history of severe underlying coronary artery disease based on a recent cardiac catheterization showing severe coronary artery disease involving RCA and LAD. 5 acute urinary tract infection, doubt sepsis. 6 acute hyperkalemia secondary to kidney injury and anna inhibitors which is presently on hold. 7 acute hyperchloremic metabolic acidosis, improved 8 acute non-ST elevation myocardial infarction is suspected. continue present treatment plan, cautious hydration. Continue antibiotics. GI and DVT prophylaxis. Patient to be reassessed by neurology again. Consider transferring the patient out of the ICU to a regular medical floor today. Time with Patient: Less than 30
--- NOTE | 2016-07-21 16:09 | PN ---
Ms. Maravilla is a 70-year-old female with a history of chronic kidney disease, single kidney, history of hypertension, hyperlipidemia, who was transferred back to the ICU yesterday because of a drop in her blood pressure and change in her mental status. She had elevation of her troponin. She has generalized tenderness today but no focal pain. She has no palpitation. She feels tired, fatigued, lack of energy. She denies any nausea. She is in sinus mechanism. She continues to be at this time on Lipitor 40 mg daily, Plavix 75 mg daily, Zetia 10 mg daily, metoprolol tartrate 25 mg twice a day. PHYSICAL EXAMINATION: Blood pressure running in the 170s with a heart in the 80s. LUNGS: No wheezes. HEART: Regular rate, rhythm. S1, S2. No S3, with systolic murmur. No diastolic murmur. ABDOMEN: Soft, nontender, obese. EXTREMITIES: No significant edema. Lab data today revealed a pH 7.47. Her pO2 is 83. BUN and creatinine are 50 and 1.8. IMPRESSION: 1. Non- [place]-pqvzhnh-ovzqjvyyp myocardial infarction. 2. Renal failure. 3. Anemia. 4. Hypertension. 5. Obesity. RECOMMENDATIONS: I would increase the dose of her beta marcy. Her left ventricular systolic function is stable. Patient is not a candidate for aggressive cardiac workup because of her overall status and the renal failure. Depending on her progress, further recommendations will be made.
[2016-07-21 17:11] LABS: Glucose,Whole Blood 182 mg/dL (75-99)
[2016-07-21 22:27] LABS: Glucose,Whole Blood 196 mg/dL (75-99)
[2016-07-21] MEDS: hydrALAZINE HCL 25 MG TAB PO SCH (22:28)
[2016-07-21] MEDS: ATORVASTATIN 40 MG TAB PO SCH (22:29)
[2016-07-21] MEDS: METOPROLOL TARTRATE 50 MG TAB PO SCH (22:29)
[2016-07-22] MEDS: SODIUM CHLORIDE 0.45% 1,000 ML IV SCH (02:43)
[2016-07-22] MEDS: LORazepam 2 MG/ML SYRINGE IV PRN ×2 (04:42→16:24)
[2016-07-22] MEDS: IPRATROPIUM-ALBUTEROL 3 ML NEB INHALATION PRN ×3 (04:47→17:18)
[2016-07-22 06:21] LABS: Glucose,Whole Blood 194 mg/dL (75-99)
[2016-07-22 06:33] LABS: Basophils % (A) 0 %; CH 30.5; CHCM 31.3; Eosinophils # (A) 0.1 k/uL (0-0.7); Eosinophils % (A) 1 %; HCT 30.6 % (34.0-46.0); HDW 3.05; HGB 9.5 gm/dL (11.4-16.0); Hypochromasia Moderate; Luc # (Auto) 0.11; Luc % (Auto) 1; Lymphocytes # (A) 1.3 k/uL (1.0-4.8); Lymphocytes % (A) 16 %; MCH 30.3 pg (25.0-35.0); MCV 97.5 fL (80.0-100.0); Mean Platelet Volume 6.9; Monocytes # (A) 0.5 k/uL (0-1.0); Monocytes % (A) 6 %; Neutrophils # (A) 6.3 k/uL (1.3-7.7); Neutrophils % (A) 76 %; RBC 3.14 m/uL (3.80-5.40); RDW 13.7 % (11.5-15.5); WBC 8.3 k/uL (3.8-10.6); WBC (Perox) 8.88
[2016-07-22 06:52] LABS: Calcium 8.6 mg/dL (8.4-10.2); Magnesium 1.7 mg/dL (1.6-2.3); Phosphorous 2.7 mg/dL (2.5-4.5); Potassium 4.4 mmol/L (3.5-5.1)
[2016-07-22] MEDS: INSULIN LISPRO (humaLOG) 300 UNIT/3 ML VIAL SQ SCH ×4 (07:25→20:50)
[2016-07-22] MEDS: EZETIMIBE 10 MG TAB PO SCH (09:18)
[2016-07-22] MEDS: CLOPIDOGREL 75 MG TAB PO SCH (09:18)
[2016-07-22] MEDS: FAMOTIDINE 20 MG TAB PO SCH (09:18)
[2016-07-22] MEDS: GABAPENTIN 100 MG CAP PO SCH ×2 (09:18→16:19)
[2016-07-22] MEDS: SERTRALINE 100 MG TAB PO SCH (09:19)
[2016-07-22] MEDS: METOPROLOL TARTRATE 50 MG TAB PO SCH ×2 (09:19→20:36)
[2016-07-22] MEDS: hydrALAZINE HCL 25 MG TAB PO SCH (09:19)
[2016-07-22] MEDS: HEPARIN SODIUM,PORCINE 5,000 UNIT/ML 1 ML VIAL SQ SCH ×2 (09:19→20:33)
[2016-07-22] MEDS: SODIUM BICARBONATE TAB 650 MG TAB PO SCH ×2 (09:20→20:36)
[2016-07-22] MEDS: oxyCODONE-APAP 10-325MG 1 EACH TAB PO PRN ×2 (09:25→16:19)
--- NOTE | 2016-07-22 09:57 | PN ---
Patient is seen for followup for acute kidney injury. She has been transferred out of the ICU. She is currently doing much better. Renal function has improved. Patient is maintained on IV fluids; however, there was evidence of pulmonary vascular congestion on the chest x-ray. She has improved her oral intake as well. Therefore the fluids will be stopped. On examination, blood pressure was high at 187/105 at night with heart rate of 103 per minute. She is afebrile. EXAMINATION OF THE HEART: S1 and S2. EXAMINATION OF THE LUNGS: Decreased breath sounds in bases. ABDOMEN: Soft, nontender. Examination of lower extremities shows no significant edema. IT DESKTOP SUPPORT SPECIALIST exam shows patient is moving all 4 extremities. Labs show sodium 143, potassium 4.4. Hemoglobin 9.5. Serum creatinine 1.1, BUN is 42. ASSESSMENT: 1. Acute kidney injury, acute tubular necrosis, currently significantly improved. 2. Metabolic acidosis, currently resolved. 3. Hyperkalemia, resolved. 4. Mild hypernatremia improved with half normal saline administration. Patient is encouraged to increase oral intake, particularly fluids. 5. Urine retention with Menjivar catheter placement on initial admission. 6. Chronic kidney disease with solitary kidney. Baseline creatinine about 1.3 mg/dL secondary to diabetic nephropathy as patient does have proteinuria. Plan is to discontinue IV fluids. Encourage increased oral intake. Use Lasix if she gets short of breath.
[2016-07-22] MEDS ORDERED: hydrALAZINE HCL 25 MG TAB PO ONE (10:00)
[2016-07-22 11:45] LABS: Glucose,Whole Blood 166 mg/dL (75-99)
[2016-07-22] MEDS: ISOSORBIDE MONONITRATE ER 30 MG TAB.ER.24H PO SCH (12:06)
--- NOTE | 2016-07-22 12:38 | P.PN ---
Subjective Principal diagnosis: Non-STEMI This is a 70-year-old female with history of chronic kidney disease,, hypertension, hyperlipidemia, who ruled in for non-Q wave myocardial infarction. She was being followed in the intensive care unit, currently on the telemetry unit. Patient was seen and examined today, complains of generalized pain all over. Blood pressure 158/78 with a heart rate in the 70s. Laboratory data, hemoglobin 9.5, potassium 4.4, BUN 42, creatinine 1.4. Magnesium level I.7 today. Echocardiogram with Doppler study was performed, ejection fraction 35-40% with basal mid and apical anterior septal hypokinesia. Patient did have an echocardiogram with Doppler study performed in May which revealed an ejection fraction of 50-55%. Blood pressure this morning 175/ 85, heart rate in the 90s. We will add Imdur to her medication regime, increase hydralazine dose, continue maximal medical therapy at this time. Patient underwent a cardiac catheterization in May of this year which revealed severe disease involving the distal RCA, intermediate disease in the proximal LAD and intermediate disease in the first OM branch of the circumflex. At that time maximal medical therapy was advised and patient was going to be scheduled for a stress test to assess for ischemia in the LAD and circumflex distribution. Objective - Vital Signs Vital signs: Vital Signs Temp 97.9 F 07/22/16 08:00 Pulse 74 07/22/16 12:00 Resp 16 07/22/16 12:00 BP 159/79 07/22/16 12:00 Pulse Ox 94 L 07/22/16 12:00 Intake & Output 07/21/16 07/22/16 07/22/16 18:59 06:59 18:59 Intake Total 240 Output Total 285 1900 Balance -45 -1900 Weight 71.2 kg 71 kg 71 kg Intake: Intake, IV Titration 240 Amount Sodium Chloride 0.45% 1, 240 000 ml @ 60 mls/hr IV . [id number] [facility] Rx#:[id number] Output: Urine 285 1900 Other: Voiding Method Indwelling Catheter Indwelling Catheter Indwelling Catheter # Voids 0 - Exam PHYSICAL EXAMINATION: HEENT: Head is atraumatic, normocephalic. Pupils equal, round. Neck is supple. There is no elevated jugular venous pressure. HEART EXAMINATION: Heart S1 and S2 systolic murmur is heard. CHEST EXAMINATION: Lungs are clear to auscultation and precussion. No chest wall tenderness is noted on palpation or with deep breathing. ABDOMEN: Soft, nontender. Bowel sounds are heard. No organomegaly noted. EXTREMITIES: 2+ peripheral pulses with no evidence of peripheral edema and no calf tenderness noted. NEUROLOGIC patient is awake, alert and oriented -3. . - Labs CBC & Chem 7: 07/22/16 05:52 07/22/16 05:52 Labs: Abnormal Lab Results - Last 24 Hours (Table) 07/21/16 07/21/16 07/22/16 Range/Units 17:09 22:14 05:52 RBC 3.14 L (3.80-5.40) m/uL Hgb 9.5 L (11.4-16.0) gm/dL Hct 30.6 L (34.0-46.0) % BUN (7-17) mg/dL Creatinine (0.52-1.04) mg/dL Glucose (74-99) mg/dL POC Glucose (mg/dL) 182 H 196 H (75-99) mg/dL 07/22/16 07/22/16 07/22/16 Range/Units 05:52 06:20 11:37 RBC (3.80-5.40) m/uL Hgb (11.4-16.0) gm/dL Hct (34.0-46.0) % BUN 42 H (7-17) mg/dL Creatinine 1.40 H (0.52-1.04) mg/dL Glucose 201 H (74-99) mg/dL POC Glucose (mg/dL) 194 H 166 H (75-99) mg/dL Assessment and Plan (1) NSTEMI (non-ST elevated myocardial infarction) Status: Acute (2) Renal failure (ARF), acute on chronic Status: Acute (3) Anemia Status: Acute (4) HTN (hypertension) Status: Acute Plan: We will add Imdur to the patient's medication regime, increase hydralazine, continue maximal medical therapy. Further recommendations to follow. DNP note has been reviewed, I agree with a documented findings and plan of care. Patient was seen and examined.
--- NOTE | 2016-07-22 12:58 | P.PN ---
Subjective his is a 70-year-old female with history of multiple medical problems including coronary artery disease, COPD, CVA/TIA, diabetes, deep vein thrombosis, hypertension, osteoarthritis, and chronic renal disease. Patient is also known to have history of peripheral vessel occlusive disease. She was admitted initially on 07/15/2016 with a chief complaint of dizziness. Patient was brought in with dizzy spells and generalized weakness. Apparently she has not been feeling well for a week or so prior to her admission. Upon presentation, her sugar was low at 60. Patient was given dextrose. And she was also noted to have low blood pressure at the time. Patient received a fluid boluses, and she was initially admitted to the hospital. Since admission, her mental status had been waxing and waning, and she was seen by many consultants during this admission including cardiology, neurology, and nephrology. The loan servicing specialist addressed her hypertension and her generalized chest pain which was felt to be musculoskeletal pain. I recommended conservative measures. The neurologist addressed her chronic left facial droop, and felt that the patient had previous CVA, wasn't clear whether her facial droop is acute or chronic. CT of the brain showed no acute intracranial process. There was some mild atrophic changes bilaterally. And maxillary sinusitis. Recommended Plavix daily by mouth. And the neurological checks. Then turf farm worker address and acute kidney injury, and recommended gentle hydration with saline at 75 ML per hour. He also recommended checking for possible interstitial nephritis and urine eosinophils. Intermittently since admission the patient has been noted to be lethargic, and today she was more lethargic than usual. Hence arrangements were made to transfer the patient to the intensive care unit. I evaluated the patient in the ICU, and she was definitely lethargic. I recommended blood work to be done included ABG, ammonia level, blood sugar, and serum cortisol level. Increase are all pending, however the ABG showed a pO2 of 88 pCO2 of 46 pH of 7.20 hence I recommended a sodium bicarb drip for her hyperchloremic metabolic acidosis. The rest of the labs are pending. Patient was also noted to have a possible UTI, she is now on Levaquin. Patient was reevaluated today on 07/20/2016, seems to be more awake, follows simple instructions, tearful and emotional. Patient made a significant improvement compared to yesterday. She is definitely more awake and more alert. And she has no idea what actually transpired in the last 24 hours. Labs were reviewed WBC count is 4.6 hemoglobin is 8.3 electrolytes are showing improvement. Her BUN is 61 creatinine is 2.5 and her bicarb is better compared to yesterday. Troponins are high, being addressed by cardiology on the case. Repeat CT of the brain was unremarkable. Reevaluated today on 07/21/2016, patient is awake, however last night she developed an episode of hypercapnia with elevated pCO2 and low pH, patient was placed on BiPAP. Repeat ABG this morning on BiPAP, showed significant improvement in his overall blood gases. PCO2 is down to 46, pH is now normal, and I plan to discontinue BiPAP and place her back on nasal cannula. Chest x- ray is suggestive of mild interstitial edema, mostly by basilar. Hence I may cut down on the IV fluid, and watch cautiously before adding any diuretics. The patient was seen and evaluated again today 07/22/2016 on the selective care unit. She is awake and alert in no acute distress. She has been utilizing the BiPAP during the evening and throughout the day as needed. She is currently maintaining good O2 saturations in the 90s on 3 L/m per nasal cannula. She states she is breathing easier today as compared to yesterday. Her renal status is stable and improved with a creatinine of 1.40 Objective - Vital Signs Vital signs: Vital Signs Temp 97.9 F 07/22/16 08:00 Pulse 74 07/22/16 12:00 Resp 16 07/22/16 12:00 BP 159/79 07/22/16 12:00 Pulse Ox 94 L 07/22/16 12:00 Intake & Output 07/21/16 07/22/16 07/22/16 18:59 06:59 18:59 Intake Total 240 Output Total 285 1900 Balance -45 -1900 Weight 71.2 kg 71 kg 71 kg Intake: Intake, IV Titration 240 Amount Sodium Chloride 0.45% 1, 240 000 ml @ 60 mls/hr IV . [id number] [facility] Rx#:[id number] Output: Urine 285 1900 Other: Voiding Method Indwelling Catheter Indwelling Catheter Indwelling Catheter # Voids 0 - Exam GENERAL EXAM: Alert, fairly comfortable in no apparent distress. HEAD: Normocephalic. EYES: Normal reaction of pupils, equal size. NOSE: Clear with pink turbinates. THROAT: There is crowding the posterior pharynx. No erythema or exudates. NECK: Her. No masses, no JVD. CHEST: No chest wall deformity. LUNGS: Equal air entry with faint crackles in the posterior bases. Diminished.. CVS: S1 and S2 normal with an audible systolic murmur. ABDOMEN: Soft, normal bowel sounds, no guarding or rigidity. Extremities: There is no significant peripheral edema. No clubbing, no cyanosis. Peripheral pulses are intact. - Labs CBC & Chem 7: 07/22/16 05:52 07/22/16 05:52 Labs: Abnormal Lab Results - Last 24 Hours (Table) 07/21/16 07/21/16 07/22/16 Range/Units 17:09 22:14 05:52 RBC 3.14 L (3.80-5.40) m/uL Hgb 9.5 L (11.4-16.0) gm/dL Hct 30.6 L (34.0-46.0) % BUN (7-17) mg/dL Creatinine (0.52-1.04) mg/dL Glucose (74-99) mg/dL POC Glucose (mg/dL) 182 H 196 H (75-99) mg/dL 07/22/16 07/22/16 07/22/16 Range/Units 05:52 06:20 11:37 RBC (3.80-5.40) m/uL Hgb (11.4-16.0) gm/dL Hct (34.0-46.0) % BUN 42 H (7-17) mg/dL Creatinine 1.40 H (0.52-1.04) mg/dL Glucose 201 H (74-99) mg/dL POC Glucose (mg/dL) 194 H 166 H (75-99) mg/dL Assessment and Plan Plan: Impression: 1 suspect acute metabolic encephalopathy and mental status change. Steadily improving over the last 2 days 2 intermittent episodes of hypotension and dehydration. Improving with hydration and her metabolic acidosis is corrected, sodium bicarb has been discontinued 3 acute on chronic kidney disease/acute kidney injury. Patient is known to have chronic kidney disease stage IIIB. 4 history of severe underlying coronary artery disease based on a recent cardiac catheterization showing severe coronary artery disease involving RCA and LAD. 5 acute urinary tract infection, doubt sepsis. 6 acute hyperkalemia secondary to kidney injury and anna inhibitors which is presently on hold. 7 acute hyperchloremic metabolic acidosis, improved 8 acute non-ST elevation myocardial infarction Plan: The patient was seen and evaluated by Dr. Baum. She is more awake and alert today as compared to yesterday. We'll continue to use the BiPAP throughout the evenings and intermittently throughout the day. She is currently maintaining good O2 saturations on 3 L/m per nasal cannula. We'll continue with her current medications. We will increase her activity as tolerated. We'll continue to follow make further recommendations based on her clinical status.
--- NOTE | 2016-07-22 14:20 | P.PN ---
Subjective Principal diagnosis: Acute kidney injury Patient is awake and alert today. Kidney function is improving. Objective - Vital Signs Vital signs: Vital Signs Temp 97.9 F 07/22/16 08:00 Pulse 74 07/22/16 12:00 Resp 16 07/22/16 12:00 BP 159/79 07/22/16 12:00 Pulse Ox 94 L 07/22/16 12:00 Intake & Output 07/21/16 07/22/16 07/22/16 18:59 06:59 18:59 Intake Total 240 180 Output Total 285 1900 800 Balance -45 -1900 -620 Weight 71.2 kg 71 kg 71 kg Intake: Intake, IV Titration 240 Amount Sodium Chloride 0.45% 1, 240 000 ml @ 60 mls/hr IV . [id number] COUNT INCLUDES THE [facility] Rx#:[id number] Oral 180 Output: Urine 285 1900 800 Other: Voiding Method Indwelling Catheter Indwelling Catheter Indwelling Catheter # Voids 0 - Exam General: The patient is awake and alert, in no distress Eye: there is normal conjunctiva bilaterally. Neck: The neck is supple, there is no JVD. Cardiovascular: Normal S1-S2, no S3-S4, no murmurs. Respiratory: Lungs clear to auscultation bilaterally Gastrointestinal: Abdomen is soft, nontender Musculoskeletal: There is no pedal edema. Neurological:. Speech is normal. Skin: Skin is warm and dry - Labs CBC & Chem 7: 07/22/16 05:52 07/22/16 05:52 Labs: Abnormal Lab Results - Last 24 Hours (Table) 07/21/16 07/21/16 07/22/16 Range/Units 17:09 22:14 05:52 RBC 3.14 L (3.80-5.40) m/uL Hgb 9.5 L (11.4-16.0) gm/dL Hct 30.6 L (34.0-46.0) % BUN (7-17) mg/dL Creatinine (0.52-1.04) mg/dL Glucose (74-99) mg/dL POC Glucose (mg/dL) 182 H 196 H (75-99) mg/dL 07/22/16 07/22/16 07/22/16 Range/Units 05:52 06:20 11:37 RBC (3.80-5.40) m/uL Hgb (11.4-16.0) gm/dL Hct (34.0-46.0) % BUN 42 H (7-17) mg/dL Creatinine 1.40 H (0.52-1.04) mg/dL Glucose 201 H (74-99) mg/dL POC Glucose (mg/dL) 194 H 166 H (75-99) mg/dL Assessment and Plan Plan: Impression Non-ST elevation [place]: Seen and evaluated by cardiology. Managed medically. Not a candidate for aggressive measures. Repeat echocardiogram ordered. Present on admission left facial droop suspect chronic in a patient who has had a prior CVA Present on admission UTI urine culture showing contamination. Currently on Levaquin Type 2 diabetes with episodes Episodes of hypoglycemia Physical debility Present on admission acute renal failure: Possibly related to obstructive uropathy and episode of hypotension Clinical dehydration History of coronary artery disease heart catheterization June 17 severe disease involving the RCA LAD and first om Chest pain present on admission with elevated troponin cardiology following Acute on chronic kidney disease chronic kidney disease stage IIIB History of peripheral vascular disease Present on admission episodes of hypo-tension: blood pressure medication being restarted gradually Present on admission episodes of dizziness lightheadedness multifactorial likely due to UTI, hypoglycemia, and clinical dehydration Current every day smoker Hyperkalemia KRISTA inhibitor held Plan Voiding trial tomorrow Echocardiogram showed diffuse hypokinesia noted and report, ejection fraction 35 %, cardiology following closely Nephrology following closely, appreciate recommendation Ultrasound kidneys reviewed Menjivar catheter inserted 07/18/16 Would allow for bladder decompression DVT and GI prophylaxis Continue Levaquin 500 by mouth every 48 hours Would hold the KRISTA inhibitor elevated potassium with episodes of hypotension Further recommendations pending Continue supportive care otherwise Repeat lab work in the morning Blood pressure medication regimen is being adjusted
[2016-07-22 16:45] LABS: Glucose,Whole Blood 218 mg/dL (75-99)
[2016-07-22] MEDS: ATORVASTATIN 40 MG TAB PO SCH (20:33)
[2016-07-22] MEDS: hydrALAZINE HCL 50 MG TAB PO SCH (20:36)
[2016-07-22 21:09] LABS: Glucose,Whole Blood 183 mg/dL (75-99)
[2016-07-23] MEDS: oxyCODONE-APAP 10-325MG 1 EACH TAB PO PRN ×5 (00:03→23:28)
[2016-07-23] MEDS: GABAPENTIN 100 MG CAP PO SCH ×4 (00:03→23:28)
[2016-07-23 05:45] LABS: Glucose,Whole Blood 192 mg/dL (75-99)
[2016-07-23 06:26] LABS: Basophils % (A) 0 %; CH 30.9; CHCM 32.6; Eosinophils # (A) 0.1 k/uL (0-0.7); Eosinophils % (A) 2 %; HCT 31.4 % (34.0-46.0); HDW 3.14; Hypochromasia Slight; Luc # (Auto) 0.12; Luc % (Auto) 1; Lymphocytes # (A) 2.3 k/uL (1.0-4.8); Lymphocytes % (A) 25 %; MCH 30.2 pg (25.0-35.0); MCHC 31.7 g/dL (31.0-37.0); MCV 95.1 fL (80.0-100.0); Mean Platelet Volume 7.4; Monocytes # (A) 0.5 k/uL (0-1.0); Monocytes % (A) 6 %; Neutrophils # (A) 6.1 k/uL (1.3-7.7); Neutrophils % (A) 66 %; RBC 3.31 m/uL (3.80-5.40); RDW 13.8 % (11.5-15.5); WBC 9.2 k/uL (3.8-10.6); WBC (Perox) 9.02
[2016-07-23] MEDS: INSULIN LISPRO (humaLOG) 300 UNIT/3 ML VIAL SQ SCH ×4 (06:30→21:00)
[2016-07-23 06:48] LABS: Magnesium 1.7 mg/dL (1.6-2.3); Phosphorous 2.8 mg/dL (2.5-4.5); Potassium 4.7 mmol/L (3.5-5.1)
[2016-07-23] MEDS: EZETIMIBE 10 MG TAB PO SCH (08:22)
[2016-07-23] MEDS: CLOPIDOGREL 75 MG TAB PO SCH (08:22)
[2016-07-23] MEDS: FAMOTIDINE 20 MG TAB PO SCH (08:22)
[2016-07-23] MEDS: HEPARIN SODIUM,PORCINE 5,000 UNIT/ML 1 ML VIAL SQ SCH ×2 (08:22→20:30)
[2016-07-23] MEDS: hydrALAZINE HCL 50 MG TAB PO SCH ×3 (08:23→21:02)
[2016-07-23] MEDS: LEVOFLOXACIN 500 MG TAB PO SCH (08:23)
[2016-07-23] MEDS: ISOSORBIDE MONONITRATE ER 30 MG TAB.ER.24H PO SCH (08:23)
[2016-07-23] MEDS: METOPROLOL TARTRATE 50 MG TAB PO SCH ×2 (08:23→20:31)
[2016-07-23] MEDS: SERTRALINE 100 MG TAB PO SCH (08:24)
[2016-07-23] MEDS: SODIUM BICARBONATE TAB 650 MG TAB PO SCH (08:25)
[2016-07-23] MEDS: ONDANSETRON 4 MG/2 ML VIAL IVP PRN ×2 (09:01→17:50)
--- NOTE | 2016-07-23 11:29 | P.PN ---
Subjective Patient is seen in follow-up for acute kidney injury. Patient has chronic kidney disease stage III with baseline creatinine near 1.3 secondary to solitary right kidney as well as diabetic kidney disease. Patient presented with vertigo and was noted to be hypotensive with systolic blood pressure in the 80s. She was also having vomiting and diarrhea prior to admission which is now improved. Denies chest pain or shortness of breath. Creatinine peaked at 3.5 this admission and is down to 1.3 today. She is noted to have urinary retention and currently has a Menjivar catheter. She is nonoliguric. Vital signs are stable. General: The patient appeared well nourished and normally developed. HEENT: Head exam is unremarkable. Neck is without jugular venous distension. LUNGS: Lungs are clear to auscultation and percussion. Breath sounds decreased. HEART: Rate and Rhythm are regular. First and second heart sounds normal. No murmurs, rubs or gallops. ABDOMEN: Abdominal exam reveals normal bowel sounds. Non-tender and non- distended. No evidence of peritonitis. EXTREMITITES: No clubbing, cyanosis, or edema. Objective - Vital Signs Vital signs: Vital Signs Temp 97.7 F 07/23/16 08:15 Pulse 77 07/23/16 08:15 Resp 18 07/23/16 08:15 BP 166/94 07/23/16 08:15 Pulse Ox 93 L 07/23/16 08:15 Intake & Output 07/22/16 07/23/16 07/23/16 18:59 06:59 18:59 Intake Total 180 150 100 Output Total 800 900 Balance -620 -750 100 Weight 71 kg 55.5 kg Intake: Oral 180 150 100 Output: Urine 800 900 Other: Voiding Method Indwelling Catheter Indwelling Catheter # Voids 2 - Labs CBC & Chem 7: 07/23/16 05:49 07/23/16 05:49 Labs: Abnormal Lab Results - Last 24 Hours (Table) 07/22/16 07/22/16 07/22/16 Range/Units 11:37 16:38 20:46 RBC (3.80-5.40) m/uL Hgb (11.4-16.0) gm/dL Hct (34.0-46.0) % Carbon Dioxide (22-30) mmol/L BUN (7-17) mg/dL Creatinine (0.52-1.04) mg/dL Glucose (74-99) mg/dL POC Glucose (mg/dL) 166 H 218 H 183 H (75-99) mg/dL 07/23/16 07/23/16 07/23/16 Range/Units 05:43 05:49 05:49 RBC 3.31 L (3.80-5.40) m/uL Hgb 10.0 L (11.4-16.0) gm/dL Hct 31.4 L (34.0-46.0) % Carbon Dioxide 32 H (22-30) mmol/L BUN 36 H (7-17) mg/dL Creatinine 1.30 H (0.52-1.04) mg/dL Glucose 181 H (74-99) mg/dL POC Glucose (mg/dL) 192 H (75-99) mg/dL Assessment and Plan Plan: Assessment: #1. Nonoliguric acute kidney injury secondary to ischemic ATN secondary to hypotension as well as component of urinary retention. Creatinine peaked at 3.5 and is down to 1.3 today. Urine eosinophils are negative. #2. Urinary retention status post Menjivar catheter placement. #3. Anemia. Iron replete. #4. Metabolic acidosis secondary to acute kidney injury. Resolved. #5. Chronic knee disease stage III with baseline creatinine near 1.3 secondary to solitary right kidney as well as diabetic kidney disease. #6. Hyperkalemia secondary to acute kidney injury and metabolic acidosis. Resolved. #7. Hypertension with chronic kidney disease. Plan: May discontinue Menjivar catheter today and monitor serial postvoid residuals. Avoid nephrotoxic agents and hypotensive episodes. Lisinopril held at this time. Discontinue oral sodium bicarbonate supplementation. Increase hydralazine to 50 mg 3 times daily.
--- NOTE | 2016-07-23 11:40 | P.PN ---
Subjective Principal diagnosis: Acute mental status change and metabolic encephalopathy This is a 70-year-old female with history of multiple medical problems including coronary artery disease, COPD, CVA/TIA, diabetes, deep vein thrombosis , hypertension, osteoarthritis, and chronic renal disease. Patient is also known to have history of peripheral vessel occlusive disease. She was admitted initially on 07/15/2016 with a chief complaint of dizziness. Patient was brought in with dizzy spells and generalized weakness. Apparently she has not been feeling well for a week or so prior to her admission. Upon presentation, her sugar was low at 60. Patient was given dextrose. And she was also noted to have low blood pressure at the time. Patient received a fluid boluses, and she was initially admitted to the hospital. Since admission, her mental status had been waxing and waning, and she was seen by many consultants during this admission including cardiology, neurology, and nephrology. The flying squad salesperson addressed her hypertension and her generalized chest pain which was felt to be musculoskeletal pain. I recommended conservative measures. The neurologist addressed her chronic left facial droop, and felt that the patient had previous CVA, wasn't clear whether her facial droop is acute or chronic. CT of the brain showed no acute intracranial process. There was some mild atrophic changes bilaterally. And maxillary sinusitis. Recommended Plavix daily by mouth. And the neurological checks. Then dietetic aide address and acute kidney injury, and recommended gentle hydration with saline at 75 ML per hour. He also recommended checking for possible interstitial nephritis and urine eosinophils. Intermittently since admission the patient has been noted to be lethargic, and today she was more lethargic than usual. Hence arrangements were made to transfer the patient to the intensive care unit. I evaluated the patient in the ICU, and she was definitely lethargic. I recommended blood work to be done included ABG, ammonia level, blood sugar, and serum cortisol level. Increase are all pending, however the ABG showed a pO2 of 88 pCO2 of 46 pH of 7.20 hence I recommended a sodium bicarb drip for her hyperchloremic metabolic acidosis. The rest of the labs are pending. Patient was also noted to have a possible UTI, she is now on Levaquin. Patient was reevaluated today on 07/20/2016, seems to be more awake, follows simple instructions, tearful and emotional. Patient made a significant improvement compared to yesterday. She is definitely more awake and more alert. And she has no idea what actually transpired in the last 24 hours. Labs were reviewed WBC count is 4.6 hemoglobin is 8.3 electrolytes are showing improvement. Her BUN is 61 creatinine is 2.5 and her bicarb is better compared to yesterday. Troponins are high, being addressed by cardiology on the case. Repeat CT of the brain was unremarkable. Reevaluated today on 07/21/2016, patient is awake, however last night she developed an episode of hypercapnia with elevated pCO2 and low pH, patient was placed on BiPAP. Repeat ABG this morning on BiPAP, showed significant improvement in his overall blood gases. PCO2 is down to 46, pH is now normal, and I plan to discontinue BiPAP and place her back on nasal cannula. Chest x- ray is suggestive of mild interstitial edema, mostly by basilar. Hence I may cut down on the IV fluid, and watch cautiously before adding any diuretics. The patient was seen and evaluated again today 07/22/2016 on the selective care unit. She is awake and alert in no acute distress. She has been utilizing the BiPAP during the evening and throughout the day as needed. She is currently maintaining good O2 saturations in the 90s on 3 L/m per nasal cannula. She states she is breathing easier today as compared to yesterday. Her renal status is stable and improved with a creatinine of 1.40 Patient was reevaluated today on 07/23/2016, she is still awake, in no distress, has some vague care complaints mostly swelling in her right forearm, and just generally not feeling well. Patient seems to be very appropriate. Her labs showed definite improvement. CBC is relatively unremarkable. Electrolytes are normal BUN is 36 creatinine is 1.30. Objective - Vital Signs Vital signs: Vital Signs Temp 97.7 F 07/23/16 08:15 Pulse 77 07/23/16 08:15 Resp 18 07/23/16 08:15 BP 166/94 07/23/16 08:15 Pulse Ox 93 L 07/23/16 08:15 Intake & Output 07/22/16 07/23/16 07/23/16 18:59 06:59 18:59 Intake Total 180 150 100 Output Total 800 900 Balance -620 -750 100 Weight 71 kg 55.5 kg Intake: Oral 180 150 100 Output: Urine 800 900 Other: Voiding Method Indwelling Catheter Indwelling Catheter # Voids 2 - Exam GENERAL EXAM: Alert, fairly comfortable in no apparent distress. HEAD: Normocephalic. EYES: Normal reaction of pupils, equal size. NOSE: Clear with pink turbinates. THROAT: There is crowding the posterior pharynx. No erythema or exudates. NECK: Her. No masses, no JVD. CHEST: No chest wall deformity. LUNGS: Equal air entry with faint crackles in the posterior bases. Diminished.. CVS: S1 and S2 normal with an audible systolic murmur. ABDOMEN: Soft, normal bowel sounds, no guarding or rigidity. Extremities: There is no significant peripheral edema. No clubbing, no cyanosis. Peripheral pulses are intact. - Labs CBC & Chem 7: 07/23/16 05:49 07/23/16 05:49 Labs: Abnormal Lab Results - Last 24 Hours (Table) 07/22/16 07/22/16 07/22/16 Range/Units 11:37 16:38 20:46 RBC (3.80-5.40) m/uL Hgb (11.4-16.0) gm/dL Hct (34.0-46.0) % Carbon Dioxide (22-30) mmol/L BUN (7-17) mg/dL Creatinine (0.52-1.04) mg/dL Glucose (74-99) mg/dL POC Glucose (mg/dL) 166 H 218 H 183 H (75-99) mg/dL 07/23/16 07/23/16 07/23/16 Range/Units 05:43 05:49 05:49 RBC 3.31 L (3.80-5.40) m/uL Hgb 10.0 L (11.4-16.0) gm/dL Hct 31.4 L (34.0-46.0) % Carbon Dioxide 32 H (22-30) mmol/L BUN 36 H (7-17) mg/dL Creatinine 1.30 H (0.52-1.04) mg/dL Glucose 181 H (74-99) mg/dL POC Glucose (mg/dL) 192 H (75-99) mg/dL Assessment and Plan Plan: 1 suspect acute metabolic encephalopathy and mental status change. Steadily improving over the last few days 2 intermittent episodes of hypotension and dehydration. Improving with hydration and her metabolic acidosis is corrected, sodium bicarb has been discontinued 3 acute on chronic kidney disease/acute kidney injury. Patient is known to have chronic kidney disease stage IIIB. 4 history of severe underlying coronary artery disease based on a recent cardiac catheterization showing severe coronary artery disease involving RCA and LAD. 5 acute urinary tract infection, doubt sepsis. 6 acute hyperkalemia secondary to kidney injury and anna inhibitors which is presently on hold. 7 acute hyperchloremic metabolic acidosis, improved 8 acute non-ST elevation myocardial infarction Recommendation: Continue present supportive care measures, consider discharge planning early next week. Time with Patient: Less than 30
[2016-07-23 12:17] LABS: Glucose,Whole Blood 181 mg/dL (75-99)
--- NOTE | 2016-07-23 12:48 | P.PN ---
Subjective Principal diagnosis: Acute kidney injury Patient is awake and alert today. Kidney function is improving. Objective - Vital Signs Vital signs: Vital Signs Temp 97.7 F 07/23/16 08:15 Pulse 77 07/23/16 08:15 Resp 18 07/23/16 08:15 BP 166/94 07/23/16 08:15 Pulse Ox 93 L 07/23/16 08:15 Intake & Output 07/22/16 07/23/16 07/23/16 18:59 06:59 18:59 Intake Total 180 150 100 Output Total 800 900 Balance -620 -750 100 Weight 71 kg 55.5 kg Intake: Oral 180 150 100 Output: Urine 800 900 Other: Voiding Method Indwelling Catheter Indwelling Catheter # Voids 2 - Exam General: The patient is awake and alert, in no distress Eye: there is normal conjunctiva bilaterally. Neck: The neck is supple, there is no JVD. Cardiovascular: Normal S1-S2, no S3-S4, no murmurs. Respiratory: Lungs clear to auscultation bilaterally Gastrointestinal: Abdomen is soft, nontender Musculoskeletal: There is no pedal edema. Neurological:. Speech is normal. Skin: Skin is warm and dry - Labs CBC & Chem 7: 07/23/16 05:49 07/23/16 05:49 Labs: Abnormal Lab Results - Last 24 Hours (Table) 07/22/16 07/22/16 07/23/16 Range/Units 16:38 20:46 05:43 RBC (3.80-5.40) m/uL Hgb (11.4-16.0) gm/dL Hct (34.0-46.0) % Carbon Dioxide (22-30) mmol/L BUN (7-17) mg/dL Creatinine (0.52-1.04) mg/dL Glucose (74-99) mg/dL POC Glucose (mg/dL) 218 H 183 H 192 H (75-99) mg/dL 07/23/16 07/23/16 07/23/16 Range/Units 05:49 05:49 11:54 RBC 3.31 L (3.80-5.40) m/uL Hgb 10.0 L (11.4-16.0) gm/dL Hct 31.4 L (34.0-46.0) % Carbon Dioxide 32 H (22-30) mmol/L BUN 36 H (7-17) mg/dL Creatinine 1.30 H (0.52-1.04) mg/dL Glucose 181 H (74-99) mg/dL POC Glucose (mg/dL) 181 H (75-99) mg/dL Assessment and Plan Plan: Impression Non-ST elevation [place]: Seen and evaluated by cardiology. Managed medically. Not a candidate for aggressive measures. Repeat echocardiogram ordered. Present on admission left facial droop suspect chronic in a patient who has had a prior CVA Present on admission UTI urine culture showing contamination. Currently on Levaquin Type 2 diabetes with episodes Episodes of hypoglycemia Physical debility Present on admission acute renal failure: Possibly related to obstructive uropathy and episode of hypotension Clinical dehydration History of coronary artery disease heart catheterization June 17 severe disease involving the RCA LAD and first om Chest pain present on admission with elevated troponin cardiology following Acute on chronic kidney disease chronic kidney disease stage IIIB History of peripheral vascular disease Present on admission episodes of hypo-tension: blood pressure medication being restarted gradually Present on admission episodes of dizziness lightheadedness multifactorial likely due to UTI, hypoglycemia, and clinical dehydration Current every day smoker Hyperkalemia KRISTA inhibitor held Plan Voiding trial today Echocardiogram showed diffuse hypokinesia noted and report, ejection fraction 35 %, cardiology following closely Nephrology following closely, appreciate recommendation Ultrasound kidneys reviewed Menjivar catheter inserted 07/18/16 Would allow for bladder decompression DVT and GI prophylaxis Continue Levaquin 500 by mouth every 48 hours Would hold the KRISTA inhibitor elevated potassium with episodes of hypotension Further recommendations pending Continue supportive care otherwise Repeat lab work in the morning Blood pressure medication regimen is being adjusted
--- NOTE | 2016-07-23 14:01 | PN ---
This patient is admitted with a urinary tract infection and respiratory distress. She is feeling better. She is comfortable. Patient is afebrile. Blood pressure is 166/94 mmHg. First and second heart sounds are normal. Lungs are clinically clear to auscultation and percussion. The patient's echocardiogram reveals a moderately impaired left ventricular systolic function. We will continue the current medications.
[2016-07-23 14:56] LABS: Glucose,Whole Blood 175 mg/dL (75-99)
[2016-07-23 17:09] LABS: Glucose,Whole Blood 154 mg/dL (75-99)
[2016-07-23] MEDS: ATORVASTATIN 40 MG TAB PO SCH (20:30)
[2016-07-23 20:52] LABS: Glucose,Whole Blood 193 mg/dL (75-99)
[2016-07-24] MEDS: ACETAMINOPHEN TAB 325 MG TAB PO PRN (03:54)
[2016-07-24 05:21] LABS: Glucose,Whole Blood 169 mg/dL (75-99)
[2016-07-24] MEDS: oxyCODONE-APAP 10-325MG 1 EACH TAB PO PRN ×3 (05:23→21:00)
[2016-07-24 06:27] LABS: Potassium 4.6 mmol/L (3.5-5.1)
[2016-07-24] MEDS: INSULIN LISPRO (humaLOG) 300 UNIT/3 ML VIAL SQ SCH ×4 (06:44→20:57)
[2016-07-24] MEDS: FAMOTIDINE 20 MG TAB PO SCH (08:41)
[2016-07-24] MEDS: METOPROLOL TARTRATE 50 MG TAB PO SCH ×2 (08:41→20:57)
[2016-07-24] MEDS: hydrALAZINE HCL 50 MG TAB PO SCH ×3 (08:41→20:58)
[2016-07-24] MEDS: CLOPIDOGREL 75 MG TAB PO SCH (08:41)
[2016-07-24] MEDS: ISOSORBIDE MONONITRATE ER 30 MG TAB.ER.24H PO SCH (08:42)
[2016-07-24] MEDS: EZETIMIBE 10 MG TAB PO SCH (08:42)
[2016-07-24] MEDS: GABAPENTIN 100 MG CAP PO SCH ×4 (08:42→22:33)
[2016-07-24] MEDS: HEPARIN SODIUM,PORCINE 5,000 UNIT/ML 1 ML VIAL SQ SCH ×2 (08:42→20:57)
[2016-07-24] MEDS: SERTRALINE 100 MG TAB PO SCH (08:42)
[2016-07-24] MEDS: FLUTICASONE 50MCG/SPRAY NASAL 16GM EA NOSTRIL PRN ×2 (08:43→22:33)
--- NOTE | 2016-07-24 09:15 | P.PN ---
Subjective Patient is seen in follow-up for acute kidney injury. Patient has chronic kidney disease stage III with baseline creatinine near 1.3 secondary to solitary right kidney as well as diabetic kidney disease. Patient presented with vertigo and was noted to be hypotensive with systolic blood pressure in the 80s. She was also having vomiting and diarrhea prior to admission which is now improved. Denies chest pain or shortness of breath. Creatinine peaked at 3.5 this admission and is stable at 1.4 today. Menjivar catheter was discontinued yesterday. She is nonoliguric and voiding well. Vital signs are stable. General: The patient appeared well nourished and normally developed. HEENT: Head exam is unremarkable. Neck is without jugular venous distension. LUNGS: Lungs are clear to auscultation and percussion. Breath sounds decreased. HEART: Rate and Rhythm are regular. First and second heart sounds normal. No murmurs, rubs or gallops. ABDOMEN: Abdominal exam reveals normal bowel sounds. Non-tender and non- distended. No evidence of peritonitis. EXTREMITITES: No clubbing, cyanosis, or edema. Objective - Vital Signs Vital signs: Vital Signs Temp 98.3 F 07/24/16 04:00 Pulse 78 07/24/16 04:00 Resp 18 07/24/16 04:00 BP 151/74 07/24/16 04:00 Pulse Ox 96 07/24/16 00:00 Intake & Output 07/23/16 07/24/16 07/24/16 18:59 06:59 18:59 Intake Total 220 240 Output Total 600 Balance -380 240 Weight 69.3 kg Intake: Oral 220 240 Output: Urine 600 Other: Voiding Method Indwelling Catheter Indwelling Catheter # Voids 0 # Bowel Movements 0 - Labs CBC & Chem 7: 07/23/16 05:49 07/24/16 05:38 Labs: Abnormal Lab Results - Last 24 Hours (Table) 07/23/16 07/23/16 07/23/16 Range/Units 11:54 14:54 17:05 Carbon Dioxide (22-30) mmol/L BUN (7-17) mg/dL Creatinine (0.52-1.04) mg/dL Glucose (74-99) mg/dL POC Glucose (mg/dL) 181 H 175 H 154 H (75-99) mg/dL 07/23/16 07/24/1607/24/17 Range/Units 20:47 05:20 05:38 Carbon Dioxide 33 H (22-30) mmol/L BUN 30 H (7-17) mg/dL Creatinine 1.40 H (0.52-1.04) mg/dL Glucose 152 H (74-99) mg/dL POC Glucose (mg/dL) 193 H 169 H (75-99) mg/dL Assessment and Plan Plan: Assessment: #1. Nonoliguric acute kidney injury secondary to ischemic ATN secondary to hypotension as well as component of urinary retention. Creatinine peaked at 3.5 and is stable at 1.4 today. Urine eosinophils are negative. #2. Urinary retention status post Menjiavr catheter placement - removed July 23. #3. Anemia. Iron replete. #4. Metabolic acidosis secondary to acute kidney injury. Resolved. #5. Chronic knee disease stage III with baseline creatinine near 1.3 secondary to solitary right kidney as well as diabetic kidney disease. #6. Hyperkalemia secondary to acute kidney injury and metabolic acidosis. Resolved. #7. Hypertension with chronic kidney disease. Plan: Continue to monitor serial postvoid residuals. Avoid nephrotoxic agents and hypotensive episodes. Lisinopril held at this time. Discontinued oral sodium bicarbonate supplementation. Dose of hydralazine was increased yesterday. Continue to monitor blood pressures.
[2016-07-24] MEDS: ALPRAZolam 0.5 MG TAB PO PRN (09:24)
[2016-07-24 11:39] LABS: Glucose,Whole Blood 187 mg/dL (75-99)
--- NOTE | 2016-07-24 12:53 | P.PN ---
Subjective Principal diagnosis: Acute mental status change and metabolic encephalopathy This is a 70-year-old female with history of multiple medical problems including coronary artery disease, COPD, CVA/TIA, diabetes, deep vein thrombosis , hypertension, osteoarthritis, and chronic renal disease. Patient is also known to have history of peripheral vessel occlusive disease. She was admitted initially on 07/15/2016 with a chief complaint of dizziness. Patient was brought in with dizzy spells and generalized weakness. Apparently she has not been feeling well for a week or so prior to her admission. Upon presentation, her sugar was low at 60. Patient was given dextrose. And she was also noted to have low blood pressure at the time. Patient received a fluid boluses, and she was initially admitted to the hospital. Since admission, her mental status had been waxing and waning, and she was seen by many consultants during this admission including cardiology, neurology, and nephrology. The associate professor of criminal justice addressed her hypertension and her generalized chest pain which was felt to be musculoskeletal pain. I recommended conservative measures. The neurologist addressed her chronic left facial droop, and felt that the patient had previous CVA, wasn't clear whether her facial droop is acute or chronic. CT of the brain showed no acute intracranial process. There was some mild atrophic changes bilaterally. And maxillary sinusitis. Recommended Plavix daily by mouth. And the neurological checks. Then replenishment merchandising associate address and acute kidney injury, and recommended gentle hydration with saline at 75 ML per hour. He also recommended checking for possible interstitial nephritis and urine eosinophils. Intermittently since admission the patient has been noted to be lethargic, and today she was more lethargic than usual. Hence arrangements were made to transfer the patient to the intensive care unit. I evaluated the patient in the ICU, and she was definitely lethargic. I recommended blood work to be done included ABG, ammonia level, blood sugar, and serum cortisol level. Increase are all pending, however the ABG showed a pO2 of 88 pCO2 of 46 pH of 7.20 hence I recommended a sodium bicarb drip for her hyperchloremic metabolic acidosis. The rest of the labs are pending. Patient was also noted to have a possible UTI, she is now on Levaquin. Patient was reevaluated today on 07/20/2016, seems to be more awake, follows simple instructions, tearful and emotional. Patient made a significant improvement compared to yesterday. She is definitely more awake and more alert. And she has no idea what actually transpired in the last 24 hours. Labs were reviewed WBC count is 4.6 hemoglobin is 8.3 electrolytes are showing improvement. Her BUN is 61 creatinine is 2.5 and her bicarb is better compared to yesterday. Troponins are high, being addressed by cardiology on the case. Repeat CT of the brain was unremarkable. Reevaluated today on 07/21/2016, patient is awake, however last night she developed an episode of hypercapnia with elevated pCO2 and low pH, patient was placed on BiPAP. Repeat ABG this morning on BiPAP, showed significant improvement in his overall blood gases. PCO2 is down to 46, pH is now normal, and I plan to discontinue BiPAP and place her back on nasal cannula. Chest x- ray is suggestive of mild interstitial edema, mostly by basilar. Hence I may cut down on the IV fluid, and watch cautiously before adding any diuretics. The patient was seen and evaluated again today 07/22/2016 on the selective care unit. She is awake and alert in no acute distress. She has been utilizing the BiPAP during the evening and throughout the day as needed. She is currently maintaining good O2 saturations in the 90s on 3 L/m per nasal cannula. She states she is breathing easier today as compared to yesterday. Her renal status is stable and improved with a creatinine of 1.40 Patient was reevaluated today on 07/23/2016, she is still awake, in no distress, has some vague care complaints mostly swelling in her right forearm, and just generally not feeling well. Patient seems to be very appropriate. Her labs showed definite improvement. CBC is relatively unremarkable. Electrolytes are normal BUN is 36 creatinine is 1.30. Reevaluated today on 07/24/2016, patient is feeling generally weak, but overall she is doing much better, she is alert oriented, and her mental status is almost back to her baseline. Her basic metabolic profile is normalizing, BUN is 30 creatinine is 1.40. Significantly improved over the last few days. Patient denies any cough no wheezing no shortness of breath. Has not been using her BiPAP for intermittent episodes of hypercapnic respiratory failure which apparently has resolved. Objective - Vital Signs Vital signs: Vital Signs Temp 98.4 F 07/24/16 08:30 Pulse 80 07/24/16 08:30 Resp 18 07/24/16 08:30 BP 119/62 07/24/16 08:30 Pulse Ox 89 L 07/24/16 08:30 Intake & Output 07/23/16 07/24/16 07/24/16 18:59 06:59 18:59 Intake Total 220 240 Output Total 600 Balance -380 240 Weight 69.3 kg Intake: Oral 220 240 Output: Urine 600 Other: Voiding Method Indwelling Catheter Indwelling Catheter Toilet # Voids 0 # Bowel Movements 0 - Exam GENERAL EXAM: Alert, fairly comfortable in no apparent distress. HEAD: Normocephalic. EYES: Normal reaction of pupils, equal size. NOSE: Clear with pink turbinates. THROAT: There is crowding the posterior pharynx. No erythema or exudates. NECK: Her. No masses, no JVD. CHEST: No chest wall deformity. LUNGS: Equal air entry with faint crackles in the posterior bases. Diminished.. CVS: S1 and S2 normal with an audible systolic murmur. ABDOMEN: Soft, normal bowel sounds, no guarding or rigidity. Extremities: There is no significant peripheral edema. No clubbing, no cyanosis. Peripheral pulses are intact. - Labs CBC & Chem 7: 07/23/16 05:49 07/24/16 05:38 Labs: Abnormal Lab Results - Last 24 Hours (Table) 07/23/16 07/23/16 07/23/16 Range/Units 14:54 17:05 20:47 Carbon Dioxide (22-30) mmol/L BUN (7-17) mg/dL Creatinine (0.52-1.04) mg/dL Glucose (74-99) mg/dL POC Glucose (mg/dL) 175 H 154 H 193 H (75-99) mg/dL 07/24/16 07/24/16 07/24/16 Range/Units 05:20 05:38 11:37 Carbon Dioxide 33 H (22-30) mmol/L BUN 30 H (7-17) mg/dL Creatinine 1.40 H (0.52-1.04) mg/dL Glucose 152 H (74-99) mg/dL POC Glucose (mg/dL) 169 H 187 H (75-99) mg/dL Assessment and Plan Plan: 1 suspect acute metabolic encephalopathy and mental status change. Steadily improving over the last few days 2 intermittent episodes of hypotension and dehydration. Improving with hydration and her metabolic acidosis is corrected, sodium bicarb has been discontinued 3 acute on chronic kidney disease/acute kidney injury. Improving steadily over the last few days 4 history of severe underlying coronary artery disease based on a recent cardiac catheterization showing severe coronary artery disease involving RCA and LAD. 5 acute urinary tract infection, doubt sepsis. 6 acute hyperkalemia secondary to kidney injury and anna inhibitors which is presently on hold. 7 acute hyperchloremic metabolic acidosis, improved 8 acute non-ST elevation myocardial infarction Recommendation: Continue present supportive care measures, consider discharge planning on Monday Time with Patient: Less than 30
--- NOTE | 2016-07-24 12:54 | P.PN ---
Subjective Principal diagnosis: Acute kidney injury Patient is awake and alert today. Kidney function is improving. No evidence of retention on bladder ultrasound Objective - Vital Signs Vital signs: Vital Signs Temp 98.4 F 07/24/16 08:30 Pulse 80 07/24/16 08:30 Resp 18 07/24/16 08:30 BP 119/62 07/24/16 08:30 Pulse Ox 89 L 07/24/16 08:30 Intake & Output 07/23/16 07/24/16 07/24/16 18:59 06:59 18:59 Intake Total 220 240 Output Total 600 Balance -380 240 Weight 69.3 kg Intake: Oral 220 240 Output: Urine 600 Other: Voiding Method Indwelling Catheter Indwelling Catheter Toilet # Voids 0 # Bowel Movements 0 - Exam General: The patient is awake and alert, in no distress Eye: there is normal conjunctiva bilaterally. Neck: The neck is supple, there is no JVD. Cardiovascular: Normal S1-S2, no S3-S4, no murmurs. Respiratory: Lungs clear to auscultation bilaterally Gastrointestinal: Abdomen is soft, nontender Musculoskeletal: There is no pedal edema. Neurological:. Speech is normal. Skin: Skin is warm and dry - Labs CBC & Chem 7: 07/23/16 05:49 07/24/16 05:38 Labs: Abnormal Lab Results - Last 24 Hours (Table) 07/23/16 07/23/16 07/23/16 Range/Units 14:54 17:05 20:47 Carbon Dioxide (22-30) mmol/L BUN (7-17) mg/dL Creatinine (0.52-1.04) mg/dL Glucose (74-99) mg/dL POC Glucose (mg/dL) 175 H 154 H 193 H (75-99) mg/dL 07/24/16 07/24/16 07/24/16 Range/Units 05:20 05:38 11:37 Carbon Dioxide 33 H (22-30) mmol/L BUN 30 H (7-17) mg/dL Creatinine 1.40 H (0.52-1.04) mg/dL Glucose 152 H (74-99) mg/dL POC Glucose (mg/dL) 169 H 187 H (75-99) mg/dL Assessment and Plan Plan: Impression Non-ST elevation [place]: Seen and evaluated by cardiology. Managed medically. Not a candidate for aggressive measures. Repeat echocardiogram ordered. Present on admission left facial droop suspect chronic in a patient who has had a prior CVA Present on admission UTI urine culture showing contamination. Currently on Levaquin Type 2 diabetes with episodes Episodes of hypoglycemia Physical debility Present on admission acute renal failure: Possibly related to obstructive uropathy and episode of hypotension Clinical dehydration History of coronary artery disease heart catheterization June 17 severe disease involving the RCA LAD and first om Chest pain present on admission with elevated troponin cardiology following Acute on chronic kidney disease chronic kidney disease stage IIIB History of peripheral vascular disease Present on admission episodes of hypo-tension: blood pressure medication being restarted gradually Present on admission episodes of dizziness lightheadedness multifactorial likely due to UTI, hypoglycemia, and clinical dehydration Current every day smoker Hyperkalemia KRISTA inhibitor held Plan Patient passed voiding trial Echocardiogram showed diffuse hypokinesia noted and report, ejection fraction 35 %, cardiology following closely Nephrology following closely, appreciate recommendation Ultrasound kidneys reviewed Menjivar catheter inserted 07/18/16 Would allow for bladder decompression DVT and GI prophylaxis Continue Levaquin 500 by mouth every 48 hours Would hold the KRISTA inhibitor elevated potassium with episodes of hypotension Further recommendations pending Continue supportive care otherwise Repeat lab work in the morning Blood pressure medication regimen is being adjusted Anticipate discharge home within the next day or 2, patient is refusing going to rehab. Set up PT at home.
--- NOTE | 2016-07-24 14:22 | P.PN ---
Subjective Principal diagnosis: Non-STEMI This is a 70-year-old female with history of chronic kidney disease,, hypertension, hyperlipidemia, who ruled in for non-Q wave myocardial infarction. She was being followed in the intensive care unit, currently on the telemetry unit. Patient was seen and examined today, complains of generalized pain all over. Blood pressure 158/78 with a heart rate in the 70s. Laboratory data, hemoglobin 9.5, potassium 4.4, BUN 42, creatinine 1.4. Magnesium level I.7 today. Echocardiogram with Doppler study was performed, ejection fraction 35-40% with basal mid and apical anterior septal hypokinesia. Patient did have an echocardiogram with Doppler study performed in May which revealed an ejection fraction of 50-55%. Blood pressure this morning 175/ 85, heart rate in the 90s. We will add Imdur to her medication regime, increase hydralazine dose, continue maximal medical therapy at this time. Patient underwent a cardiac catheterization in May of this year which revealed severe disease involving the distal RCA, intermediate disease in the proximal LAD and intermediate disease in the first OM branch of the circumflex. At that time maximal medical therapy was advised and patient was going to be scheduled for a stress test to assess for ischemia in the LAD and circumflex distribution. Objective - Vital Signs Vital signs: Vital Signs Temp 98.4 F 07/24/16 08:30 Pulse 80 07/24/16 08:30 Resp 18 07/24/16 11:55 BP 119/62 07/24/16 08:30 Pulse Ox 89 L 07/24/16 08:30 Intake & Output 07/23/16 07/24/16 07/24/16 18:59 06:59 18:59 Intake Total 220 340 Output Total 600 300 Balance -380 40 Weight 69.3 kg Intake: Oral 220 340 Output: Urine 600 300 Other: Voiding Method Indwelling Catheter Indwelling Catheter Toilet # Voids 0 1 # Bowel Movements 0 - Exam PHYSICAL EXAMINATION: HEENT: Head is atraumatic, normocephalic. Pupils equal, round. Neck is supple. There is no elevated jugular venous pressure. HEART EXAMINATION: Heart S1 and S2 systolic murmur is heard. CHEST EXAMINATION: Lungs are clear to auscultation and precussion. No chest wall tenderness is noted on palpation or with deep breathing. ABDOMEN: Soft, nontender. Bowel sounds are heard. No organomegaly noted. EXTREMITIES: 2+ peripheral pulses with no evidence of peripheral edema and no calf tenderness noted. NEUROLOGIC patient is awake, alert and oriented -3. . - Labs CBC & Chem 7: 07/23/16 05:49 07/24/16 05:38 Labs: Abnormal Lab Results - Last 24 Hours (Table) 07/23/16 07/23/16 07/23/16 Range/Units 14:54 17:05 20:47 Carbon Dioxide (22-30) mmol/L BUN (7-17) mg/dL Creatinine (0.52-1.04) mg/dL Glucose (74-99) mg/dL POC Glucose (mg/dL) 175 H 154 H 193 H (75-99) mg/dL 07/24/16 07/24/16 07/24/16 Range/Units 05:20 05:38 11:37 Carbon Dioxide 33 H (22-30) mmol/L BUN 30 H (7-17) mg/dL Creatinine 1.40 H (0.52-1.04) mg/dL Glucose 152 H (74-99) mg/dL POC Glucose (mg/dL) 169 H 187 H (75-99) mg/dL Assessment and Plan (1) NSTEMI (non-ST elevated myocardial infarction) Status: Acute (2) Renal failure (ARF), acute on chronic Status: Acute (3) Anemia Status: Acute (4) HTN (hypertension) Status: Acute Plan: From cardiology's perspective, we'll continue patient on her current medications. If her up in the chair as tolerated. DNP note has been reviewed, I agree with a documented findings and plan of care. Patient was seen and examined.
[2016-07-24 16:57] LABS: Glucose,Whole Blood 160 mg/dL (75-99)
[2016-07-24 20:52] LABS: Glucose,Whole Blood 180 mg/dL (75-99)
[2016-07-24] MEDS: ATORVASTATIN 40 MG TAB PO SCH (20:57)
[2016-07-24] MEDS: ZOLPIDEM 5 MG TAB PO PRN (22:33)
[2016-07-25] MEDS: oxyCODONE-APAP 10-325MG 1 EACH TAB PO PRN ×4 (03:02→21:41)
[2016-07-25 06:25] LABS: Potassium 4.7 mmol/L (3.5-5.1)
[2016-07-25] MEDS: INSULIN LISPRO (humaLOG) 300 UNIT/3 ML VIAL SQ SCH ×4 (06:31→20:34)
[2016-07-25 06:34] LABS: Glucose,Whole Blood 136 mg/dL (75-99)
[2016-07-25] MEDS: GABAPENTIN 100 MG CAP PO SCH ×3 (08:35→21:41)
[2016-07-25] MEDS: HEPARIN SODIUM,PORCINE 5,000 UNIT/ML 1 ML VIAL SQ SCH ×2 (08:35→20:34)
[2016-07-25] MEDS: FAMOTIDINE 20 MG TAB PO SCH (08:36)
[2016-07-25] MEDS: EZETIMIBE 10 MG TAB PO SCH (08:36)
[2016-07-25] MEDS: SERTRALINE 100 MG TAB PO SCH (08:37)
[2016-07-25] MEDS: ISOSORBIDE MONONITRATE ER 30 MG TAB.ER.24H PO SCH (08:37)
[2016-07-25] MEDS: CLOPIDOGREL 75 MG TAB PO SCH (08:37)
[2016-07-25] MEDS: hydrALAZINE HCL 50 MG TAB PO SCH ×3 (08:38→21:41)
[2016-07-25] MEDS: LEVOFLOXACIN 500 MG TAB PO SCH (08:39)
[2016-07-25] MEDS: METOPROLOL TARTRATE 50 MG TAB PO SCH ×2 (08:39→20:34)
[2016-07-25] MEDS: ONDANSETRON 4 MG/2 ML VIAL IVP PRN (08:48)
[2016-07-25 11:51] LABS: Glucose,Whole Blood 168 mg/dL (75-99)
--- NOTE | 2016-07-25 13:32 | P.PN ---
Subjective Principal diagnosis: Acute kidney injury Patient is awake and alert today. Kidney function is improving. No evidence of retention on bladder ultrasound Objective - Vital Signs Vital signs: Vital Signs Temp 99.1 F 07/25/16 12:00 Pulse 82 07/25/16 12:00 Resp 18 07/25/16 12:00 BP 152/84 07/25/16 12:00 Pulse Ox 94 L 07/25/16 12:00 Intake & Output 07/24/16 07/25/16 07/25/16 18:59 06:59 18:59 Intake Total 390 200 200 Output Total 300 850 400 Balance 90 -650 -200 Weight 70.5 kg Intake: Oral 390 200 200 Output: Urine 300 850 400 Other: Voiding Method Toilet Toilet Toilet # Voids 1 1 2 - Exam General: The patient is awake and alert, in no distress Eye: there is normal conjunctiva bilaterally. Neck: The neck is supple, there is no JVD. Cardiovascular: Normal S1-S2, no S3-S4, no murmurs. Respiratory: Lungs clear to auscultation bilaterally Gastrointestinal: Abdomen is soft, nontender Musculoskeletal: There is no pedal edema. Neurological:. Speech is normal. Skin: Skin is warm and dry - Labs CBC & Chem 7: 07/23/16 05:49 07/25/16 05:58 Labs: Abnormal Lab Results - Last 24 Hours (Table) 07/24/16 07/24/16 07/25/16 Range/Units 16:52 20:37 05:58 BUN 25 H (7-17) mg/dL Creatinine 1.30 H (0.52-1.04) mg/dL Glucose 139 H (74-99) mg/dL POC Glucose (mg/dL) 160 H 180 H (75-99) mg/dL 07/25/16 07/25/16 Range/Units 06:29 11:43 BUN (7-17) mg/dL Creatinine (0.52-1.04) mg/dL Glucose (74-99) mg/dL POC Glucose (mg/dL) 136 H 168 H (75-99) mg/dL Assessment and Plan Plan: Impression Non-ST elevation [place]: Seen and evaluated by cardiology. Managed medically. Not a candidate for aggressive measures. Repeat echocardiogram ordered. Present on admission left facial droop suspect chronic in a patient who has had a prior CVA Present on admission UTI urine culture showing contamination. Currently on Levaquin Type 2 diabetes with episodes Episodes of hypoglycemia Physical debility Present on admission acute renal failure: Possibly related to obstructive uropathy and episode of hypotension Clinical dehydration History of coronary artery disease heart catheterization June 17 severe disease involving the RCA LAD and first om Chest pain present on admission with elevated troponin cardiology following Acute on chronic kidney disease chronic kidney disease stage IIIB History of peripheral vascular disease Present on admission episodes of hypo-tension: blood pressure medication being restarted gradually Present on admission episodes of dizziness lightheadedness multifactorial likely due to UTI, hypoglycemia, and clinical dehydration Current every day smoker Hyperkalemia KRISTA inhibitor held Plan Patient is medically clear for discharge She is refusing to go to rehab She said that she can go home today and would like to be discharged home tomorrow Counseled extensively about medication compliance
--- NOTE | 2016-07-25 14:15 | P.PN ---
Subjective Progress note dated 07/25/2016 Patient is doing better. She is alert and oriented. Enteral status is back to baseline. BUN/creatinine have improved. No shortness of breath. No wheezing no coughing. No phlegm production. No fever no chills. The patient's hoping to be discharged soon. Objective - Vital Signs Vital signs: Vital Signs Temp 99.1 F 07/25/16 12:00 Pulse 82 07/25/16 12:00 Resp 18 07/25/16 12:00 BP 152/84 07/25/16 12:00 Pulse Ox 94 L 07/25/16 12:00 Intake & Output 07/24/16 07/25/16 07/25/16 18:59 06:59 18:59 Intake Total 390 200 200 Output Total 300 850 400 Balance 90 -650 -200 Weight 70.5 kg Intake: Oral 390 200 200 Output: Urine 300 850 400 Other: Voiding Method Toilet Toilet Toilet # Voids 1 1 2 - Exam No acute distress, oriented 3. Patient sitting up in bed. HEENT examination is grossly unremarkable. Mucous members are moist. No oral lesions. Neck supple. Full range of motion. No adenopathy or thyromegaly. Cardiovascular examination reveals regular rhythm rate. S1 and S2 normal. No S3-S4 or murmur. Lungs reveal few scattered mild rhonchi. No wheezes or crackles. Abdomen soft. Bowel sounds are noted. Extremities are intact. - Labs CBC & Chem 7: 07/23/16 05:49 07/25/16 05:58 Labs: Abnormal Lab Results - Last 24 Hours (Table) 07/24/16 07/24/16 07/25/16 Range/Units 16:52 20:37 05:58 BUN 25 H (7-17) mg/dL Creatinine 1.30 H (0.52-1.04) mg/dL Glucose 139 H (74-99) mg/dL POC Glucose (mg/dL) 160 H 180 H (75-99) mg/dL 07/25/16 07/25/16 Range/Units 06:29 11:43 BUN (7-17) mg/dL Creatinine (0.52-1.04) mg/dL Glucose (74-99) mg/dL POC Glucose (mg/dL) 136 H 168 H (75-99) mg/dL Assessment and Plan (1) Chronic renal failure Status: Acute (2) HTN (hypertension) Status: Acute (3) NSTEMI (non-ST elevated myocardial infarction) Status: Acute (4) Renal failure (ARF), acute on chronic Status: Acute (5) Urinary tract infection Status: Acute (6) Diabetes mellitus Status: Acute (7) Hyperlipemia Status: Acute (8) Hypertension Status: Acute (9) Peripheral vascular disease Status: Acute (10) Urinary tract infection Status: Acute Plan: Plan Patient is doing better. We'll continue to follow. Likely discharge in next 24 -48 hours. The patient's overall pulmonary status is improved. Respiratory status has stabilized over last couple days. Hemodynamically, the patient is stable. Time with Patient: Less than 30
--- NOTE | 2016-07-25 15:48 | P.PN ---
Subjective Principal diagnosis: Non-STEMI This is a 70-year-old female with history of chronic kidney disease,, hypertension, hyperlipidemia, who ruled in for non-Q wave myocardial infarction. She was being followed in the intensive care unit, currently on the telemetry unit. Patient was seen and examined today, complains of generalized pain all over. Blood pressure 158/78 with a heart rate in the 70s. Laboratory data, hemoglobin 9.5, potassium 4.4, BUN 42, creatinine 1.4. Magnesium level I.7 today. Echocardiogram with Doppler study was performed, ejection fraction 35-40% with basal mid and apical anterior septal hypokinesia. Patient did have an echocardiogram with Doppler study performed in May which revealed an ejection fraction of 50-55%. Blood pressure this morning 175/ 85, heart rate in the 90s. We will add Imdur to her medication regime, increase hydralazine dose, continue maximal medical therapy at this time. Patient underwent a cardiac catheterization in May of this year which revealed severe disease involving the distal RCA, intermediate disease in the proximal LAD and intermediate disease in the first OM branch of the circumflex. Medical therapy advised at that time. Objective - Vital Signs Vital signs: Vital Signs Temp 99.1 F 07/25/16 12:00 Pulse 68 07/25/16 15:42 Resp 16 07/25/16 15:42 BP 155/81 07/25/16 15:42 Pulse Ox 92 L 07/25/16 15:42 Intake & Output 07/24/16 07/25/16 07/25/16 18:59 06:59 18:59 Intake Total 390 200 200 Output Total 300 850 400 Balance 90 -650 -200 Weight 70.5 kg Intake: Oral 390 200 200 Output: Urine 300 850 400 Other: Voiding Method Toilet Toilet Toilet # Voids 1 1 2 - Exam PHYSICAL EXAMINATION: HEENT: Head is atraumatic, normocephalic. Pupils equal, round. Neck is supple. There is no elevated jugular venous pressure. HEART EXAMINATION: Heart S1 and S2 systolic murmur is heard. CHEST EXAMINATION: Lungs are clear to auscultation and precussion. No chest wall tenderness is noted on palpation or with deep breathing. ABDOMEN: Soft, nontender. Bowel sounds are heard. No organomegaly noted. EXTREMITIES: 2+ peripheral pulses with no evidence of peripheral edema and no calf tenderness noted. NEUROLOGIC patient is awake, alert and oriented -3. . - Labs CBC & Chem 7: 07/23/16 05:49 07/25/16 05:58 Labs: Abnormal Lab Results - Last 24 Hours (Table) 07/24/16 07/24/16 07/25/16 Range/Units 16:52 20:37 05:58 BUN 25 H (7-17) mg/dL Creatinine 1.30 H (0.52-1.04) mg/dL Glucose 139 H (74-99) mg/dL POC Glucose (mg/dL) 160 H 180 H (75-99) mg/dL 07/25/16 07/25/16 Range/Units 06:29 11:43 BUN (7-17) mg/dL Creatinine (0.52-1.04) mg/dL Glucose (74-99) mg/dL POC Glucose (mg/dL) 136 H 168 H (75-99) mg/dL Assessment and Plan (1) NSTEMI (non-ST elevated myocardial infarction) Status: Acute (2) Renal failure (ARF), acute on chronic Status: Acute (3) Anemia Status: Acute (4) HTN (hypertension) Status: Acute Plan: From cardiology's perspective, we'll continue patient on her current medications. We will follow her along with you now on an as-needed basis only, please of hesitate to call with any questions. Upon discharge follow-up appointment will be made with Dr. Macias. DNP note has been reviewed, I agree with a documented findings and plan of care. Patient was seen and examined.
[2016-07-25 16:53] LABS: Glucose,Whole Blood 137 mg/dL (75-99)
[2016-07-25 20:29] LABS: Glucose,Whole Blood 161 mg/dL (75-99)
[2016-07-25] MEDS: ZOLPIDEM 5 MG TAB PO PRN (20:34)
[2016-07-25] MEDS: FLUTICASONE 50MCG/SPRAY NASAL 16GM EA NOSTRIL PRN (20:34)
[2016-07-25] MEDS: ATORVASTATIN 40 MG TAB PO SCH (20:34)
[2016-07-25] MEDS: ALPRAZolam 0.5 MG TAB PO PRN (23:28)
[2016-07-26] MEDS: oxyCODONE-APAP 10-325MG 1 EACH TAB PO PRN ×2 (05:38→12:12)
[2016-07-26 05:47] LABS: Glucose,Whole Blood 131 mg/dL (75-99)
[2016-07-26] MEDS: INSULIN LISPRO (humaLOG) 300 UNIT/3 ML VIAL SQ SCH ×3 (06:33→17:20)
[2016-07-26 06:45] LABS: Calcium 8.8 mg/dL (8.4-10.2)
[2016-07-26 06:46] LABS: Potassium 4.8 mmol/L (3.5-5.1)
[2016-07-26 08:25] VITALS: RESP 18; TEMP 99
[2016-07-26] MEDS: GABAPENTIN 100 MG CAP PO SCH ×2 (08:26→15:44)
[2016-07-26] MEDS: CLOPIDOGREL 75 MG TAB PO SCH (08:26)
[2016-07-26] MEDS: ISOSORBIDE MONONITRATE ER 30 MG TAB.ER.24H PO SCH (08:26)
[2016-07-26] MEDS: SERTRALINE 100 MG TAB PO SCH (08:27)
[2016-07-26] MEDS: METOPROLOL TARTRATE 50 MG TAB PO SCH (08:27)
[2016-07-26] MEDS: hydrALAZINE HCL 50 MG TAB PO SCH ×2 (08:27→15:44)
[2016-07-26] MEDS: EZETIMIBE 10 MG TAB PO SCH (08:27)
[2016-07-26] MEDS: FAMOTIDINE 20 MG TAB PO SCH (08:27)
[2016-07-26] MEDS: HEPARIN SODIUM,PORCINE 5,000 UNIT/ML 1 ML VIAL SQ SCH (08:28)
[2016-07-26 10:56] VITALS: BMI 29.0
[2016-07-26 12:12] LABS: Glucose,Whole Blood 236 mg/dL (75-99)
--- NOTE | 2016-07-26 14:11 | P.PN ---
Subjective Progress note dated 07/25/2016 Patient is doing better. She is alert and oriented. Enteral status is back to baseline. BUN/creatinine have improved. No shortness of breath. No wheezing no coughing. No phlegm production. No fever no chills. The patient's hoping to be discharged soon. Progress note dated 07/26/2016 This is a 70-year-old female with a history of a multiple medical problems. She is doing much better today. Likely be discharged home by her primary. Her medical problem list includes chronic renal failure hypertension non-ST segment elevation myocardial infarction renal failure urinary tract infection diabetes mellitus hyperlipidemia hypertension PVOD and bladder infection. She's feeling well. No pain. No fever no chills. No nausea vomiting or diarrhea. Objective - Vital Signs Vital signs: Vital Signs Temp 99 F 07/26/16 08:00 Pulse 92 07/26/16 12:56 Resp 18 07/26/16 11:07 BP 123/62 07/26/16 11:07 Pulse Ox 95 07/26/16 11:07 Intake & Output 07/25/16 07/26/16 07/26/16 18:59 06:59 18:59 Intake Total 200 Output Total 400 300 400 Balance -200 -300 -400 Weight 67.4 kg 67.4 kg Intake: Oral 200 Output: Urine 400 300 400 Other: Voiding Method Toilet # Voids 2 1 2 - Exam No acute distress, oriented 3. Patient sitting up in bed. HEENT examination is grossly unremarkable. Mucous members are moist. No oral lesions. Neck supple. Full range of motion. No adenopathy or thyromegaly. Cardiovascular examination reveals regular rhythm rate. S1 and S2 normal. No S3-S4 or murmur. Lungs reveal few scattered mild rhonchi. No wheezes or crackles. Abdomen soft. Bowel sounds are noted. Extremities are intact. - Labs CBC & Chem 7: 07/23/16 05:49 07/26/16 06:10 Labs: Abnormal Lab Results - Last 24 Hours (Table) 07/25/16 07/25/16 07/26/16 Range/Units 16:30 20:27 05:46 Sodium (137-145) mmol/L BUN (7-17) mg/dL Creatinine (0.52-1.04) mg/dL Glucose (74-99) mg/dL POC Glucose (mg/dL) 137 H 161 H 131 H (75-99) mg/dL 07/26/16 07/26/16 Range/Units 06:10 11:49 Sodium 134 L (137-145) mmol/L BUN 23 H (7-17) mg/dL Creatinine 1.30 H (0.52-1.04) mg/dL Glucose 131 H (74-99) mg/dL POC Glucose (mg/dL) 236 H (75-99) mg/dL Assessment and Plan (1) Chronic renal failure Status: Acute (2) HTN (hypertension) Status: Acute (3) NSTEMI (non-ST elevated myocardial infarction) Status: Acute (4) Renal failure (ARF), acute on chronic Status: Acute (5) Urinary tract infection Status: Acute (6) Diabetes mellitus Status: Acute (7) Hyperlipemia Status: Acute (8) Hypertension Status: Acute (9) Peripheral vascular disease Status: Acute (10) Urinary tract infection Status: Acute Plan: Plan Patient is doing better. We'll continue to follow. Likely discharge in next 24 -48 hours. The patient's overall pulmonary status is improved. Respiratory status has stabilized over last couple days. Hemodynamically, the patient is stable. Plan The patient is being discharged today. We'll continue to follow only as needed. She's doing much better. No respiratory hemodynamic issues. I wish her well. I told more than welcome to see us in the office if she feels like she needs to Time with Patient: Less than 30
[2016-07-26 15:47] VITALS: BP 124/68; PULSE 64
--- NOTE | 2016-07-26 16:10 | P.DS ---
Providers Date of admission: 07/15/16 07:39 Expected date of discharge: 07/26/16 Attending physician: Jenna Pereira Consults: 07/16/16 12:23 Consult Physician Urgent Consulting Provider: Elsa Vasquez Consult Reason/Comments: Worsening of creatinine level Do you want consulting provider notified?: Yes 07/19/16 14:14 Consult Physician Routine Consulting Provider: Inna Baum Consult Reason/Comments: icu management Do you want consulting provider notified?: Yes 07/20/16 08:50 Consult Physician Stat Consulting Provider: Daisy Bower Consult Reason/Comments: increased troponin Do you want consulting provider notified?: Already Contacted Primary care physician: [place] [facility] Hospital Course: This is a 70-year-old female with a complex past medical history who presented to the hospital initially with shortness of breath and chest pain. Patient was found to have a non-STEMI and was admitted to the intensive care unit. She was seen and evaluated by cardiology, pulmonology, and nephrology. She had a complicated hospital course. Her overall condition improved significantly throughout her hospital stay. She was seen and evaluated by PT/OT and refused to go to [facility] for rehab. She elected to be discharged home. She will be discharged home in a stable condition. Below is a list of her medical problems addressed during this hospitalization. - Non-ST elevation [place]: Seen and evaluated by cardiology. Managed medically. Not a candidate for aggressive measures. Repeat echocardiogram ordered. - Present on admission left facial droop suspect chronic in a patient who has had a prior CVA - Present on admission UTI urine culture showing contamination. Currently on Levaquin - Type 2 diabetes with episodes Episodes of hypoglycemia - Physical debility - Present on admission acute renal failure: Possibly related to obstructive uropathy and episode of hypotension - Clinical dehydration - History of coronary artery disease heart catheterization June 17 severe disease involving the RCA LAD and first om - Chest pain present on admission with elevated troponin cardiology following - Acute on chronic kidney disease - chronic kidney disease stage IIIB - History of peripheral vascular disease - Present on admission episodes of hypo-tension: blood pressure medication being restarted gradually - Present on admission episodes of dizziness lightheadedness multifactorial likely due to UTI, hypoglycemia, and clinical dehydration - Current every day smoker Patient Condition at Discharge: Poor Plan - Discharge Summary New Discharge Prescriptions: Gabapentin [Neurontin] 100 mg PO Q8HR #90 cap Isosorbide Mononitrate ER [Imdur] 30 mg PO DAILY #30 tab.er.24h Discharge Medication List Albuterol Inhaler [Ventolin Hfa Inhaler] 2 puff INHALATION RT-Q6H PRN 06/02/16 [ History] Cilostazol [Pletal] 100 mg PO BID 06/02/16 [History] Clopidogrel [Plavix] 75 mg PO DAILY 06/02/16 [History] Ezetimibe [Zetia] 10 mg PO DAILY 06/02/16 [History] Sertraline HCl [Zoloft] 100 mg PO DAILY 06/02/16 [History] Metoprolol Tartrate [Lopressor] 50 mg PO BID #60 tab 06/14/16 [Rx] Atorvastatin [Lipitor] 40 mg PO HS tab 06/25/16 [Rx] Ipratropium-Albuterol Nebulize [Duoneb 0.5 mg-3 mg/3 ml Soln] 3 ml INHALATION RT -QID PRN #0 ampul.neb 06/25/16 [Rx] hydrALAZINE HCL [Apresoline] 50 mg PO TID tab 06/25/16 [Rx] oxyCODONE HCL/ACETAMINOPHEN [Percocet 10-325 mg] 1 tab PO Q6HR PRN #10 tab 06/25 [Rx] Famotidine [Pepcid] 20 mg PO BID 07/14/16 [History] Gabapentin [Neurontin] 100 mg PO Q8HR #90 cap 07/26/16 [Rx] Insulin NPH/Reg Insulin 70/30 [humuLIN 70/30 VIAL] 15 unit SQ AC-SUPPER #3 vial 07/26/16 [Rx] Insulin NPH/Reg Insulin 70/30 [humuLIN 70/30 VIAL] 20 unit SQ AC-BRKFST #3 vial 07/26/16 [Rx] Isosorbide Mononitrate ER [Imdur] 30 mg PO DAILY #30 tab.er.24h 07/26/16 [Rx] Follow up Appointment(s)/Referral(s): Mallory Hernandez MD [Primary Care Provider] - 07/28/16 3:45 pm Discharge Disposition: HOME SELF-CARE
[2016-07-26 17:13] LABS: Glucose,Whole Blood 171 mg/dL (75-99)
[2016-07-26] MEDS: ALPRAZolam 0.5 MG TAB PO PRN (17:20)
--- NOTE | 2016-07-27 06:47 | PN ---
Patient is seen for followup for acute kidney injury. Her renal function has improved significantly. She is currently sitting up in bed, eating her lunch. She denies any significant complaints. Patient will be discharged today. On examination, blood pressure is 123/62, heart rate 65 per minute. She is afebrile. EXAMINATION OF THE HEART: S1 and S2. EXAMINATION OF THE LUNGS: Bilateral breath sounds are heard. ABDOMEN: Soft, nontender. Examination of lower extremities shows no evidence of edema. [employer] exam is grossly intact. Labs show sodium 134, potassium 4.8, BUN 23, serum creatinine 1.3. ASSESSMENT: 1. Acute kidney injury, prerenal, currently improved. 2. Serum creatinine at 1.3 mg/dL now. 3. Urine retention, status post Menjivar catheter, which was removed. 4. Chronic kidney disease with baseline creatinine about 1.3 associated with solitary right kidney and diabetic kidney disease. 5. Hypertension with chronic kidney disease, currently stable. PLAN: The patient is stable for discharge from nephrology standpoint.
--- NOTE | 2016-07-27 06:50 | PN ---
DATE OF SERVICE: 07/25/2016 Patient is seen for followup for acute kidney injury. Her renal function has improved with serum creatinine now at 1.3 mg/dL. Patient is eating well. She denies any significant complaints except for some abdominal pain and vague nausea. On examination, blood pressure is 152/84, heart rate 68 per minute. She is afebrile. EXAMINATION OF THE HEART: S1 and S2. EXAMINATION OF THE LUNGS: Decreased breath sounds bilateral bases. ABDOMEN: Soft, nontender. Examination of lower extremities shows no significant edema. Labs show serum creatinine of 1.3 mg/dL, sodium 139, potassium 4.7. ASSESSMENT: 1. Acute kidney injury, prerenal, currently improved. 2. Chronic kidney disease with solitary kidney and diabetic kidney disease. Renal function at baseline with creatinine 1.3 mg/dL. 3. Urine retention, currently improved. 4. Anemia with no evidence of iron deficiency. 5. Hyperkalemia associated with acute kidney injury, now resolved. 6. Non-ST elevation myocardial infarction being seen by Cardiology with plans for medical management. PLAN: The patient is stable for discharge. She will he need to follow up as outpatient for CKD.
[2016-07-27] MEDS ORDERED: LEVOFLOXACIN 750 MG TAB PO SCH (09:00)
== END 2016-07-26 18:37 | DRG 280 ==
LOC: EC 22:49 → 6SEL 07-15 07:39 → UNDODISIN 07-16 13:30 → 4MS4W 07-17 12:30 → 6ICU 07-19 13:17 → 6SEL 07-21 18:48
PROVIDERS: ADMIT Internal Medicine; ATTEND Internal Medicine
DX: I21.4 Non-ST elevation (NSTEMI) myocardial infarction (principal); N17.0 Acute kidney failure with tubular necrosis; E87.0 Hyperosmolality and hypernatremia; G93.41 Metabolic encephalopathy; E87.2 Acidosis; N39.0 Urinary tract infection, site not specified; N13.30 Unspecified hydronephrosis; I13.0 Hypertensive heart and chronic kidney disease with heart failure and stage 1 through stage 4 chronic kidney disease, or unspecified chronic kidney disease; I69.992 Facial weakness following unspecified cerebrovascular disease; E86.0 Dehydration; I25.10 Atherosclerotic heart disease of native coronary artery without angina pectoris; F17.200 Nicotine dependence, unspecified, uncomplicated; E11.21 Type 2 diabetes mellitus with diabetic nephropathy; E11.22 Type 2 diabetes mellitus with diabetic chronic kidney disease; E11.51 Type 2 diabetes mellitus with diabetic peripheral angiopathy without gangrene; E78.5 Hyperlipidemia, unspecified; E87.5 Hyperkalemia; J44.9 Chronic obstructive pulmonary disease, unspecified; E87.8 Other disorders of electrolyte and fluid balance, not elsewhere classified; I50.9 Heart failure, unspecified; N18.3 Chronic kidney disease, stage 3 (moderate); F40.240 Claustrophobia; H91.90 Unspecified hearing loss, unspecified ear; J45.909 Unspecified asthma, uncomplicated; J32.0 Chronic maxillary sinusitis; I25.2 Old myocardial infarction; D64.9 Anemia, unspecified; G89.29 Other chronic pain; M54.5 Low back pain; G47.9 Sleep disorder, unspecified; F32.9 Major depressive disorder, single episode, unspecified; I45.10 Unspecified right bundle-branch block; M19.90 Unspecified osteoarthritis, unspecified site; E66.9 Obesity, unspecified; Z68.29 Body mass index [BMI] 29.0-29.9, adult; Z87.442 Personal history of urinary calculi; Z79.02 Long term (current) use of antithrombotics/antiplatelets; Z79.4 Long term (current) use of insulin; Z79.891 Long term (current) use of opiate analgesic; Z79.899 Other long term (current) drug therapy; Z82.49 Family history of ischemic heart disease and other diseases of the circulatory system
CPT/HCPCS: 36415; 36600; 70450; 71010; 76770; 80048; 80053; 80061; 81001; 82140; 82533; 82550; 82553; 82570; 82728; 82805; 83036; 83090; 83540; 83550; 83605; 83735; 84100; 84132; 84156; 84484; 85025; 85027; 85379; 87086; 87205; 87324; 93005; 93306; 94640; 94660; 95819; 96365; 96366; 99285

== ENCOUNTER 2016-08-04 16:00 | Observation (INO) | payer MEDICARE, OTHER ==
--- NOTE | 2016-08-04 16:09 | ED ---
General Adult HPI - General Stated complaint: chest pain Time Seen by Provider: 08/04/16 16:01 Source: RN notes reviewed, old records reviewed - History of Present Illness Initial comments: This is a 70-year-old female here with chest pain. Patient's anterior chest pain, sitting on pains in her chest. She has severe cardiac disease, DE CAD high blood pressure, so diabetes etc. Patient concern for a heart attack. She was doing nothing this pain started, again the pain persists at this time. No nausea vomiting diarrhea or shortest breath no cough or congestion recent fevers , patient denies travel history. - Related Data Home Medications Medication Instructions Recorded Confirmed Albuterol Inhaler [Ventolin Hfa 2 puff INHALATION RT-Q6H PRN 06/02/16 08/04/16 Inhaler] Cilostazol [Pletal] 100 mg PO BID@0800,1600 06/02/16 08/04/16 Clopidogrel [Plavix] 75 mg PO DAILY 06/02/16 08/04/16 Ezetimibe [Zetia] 10 mg PO DAILY 06/02/16 08/04/16 Sertraline HCl [Zoloft] 100 mg PO DAILY 06/02/16 08/04/16 Famotidine [Pepcid] 20 mg PO BID@0800,1600 07/14/16 08/04/16 Atorvastatin [Lipitor] 40 mg PO HS@2000 08/04/16 08/04/16 Gabapentin [Neurontin] 100 mg PO TID@0500,1300,2100 08/04/16 08/04/16 Nitroglycerin Sl Tabs [Nitrostat] 0.4 mg SUBLINGUAL Q5M PRN 08/04/16 08/04/16 hydrALAZINE HCL [Apresoline] 50 mg PO TID@0800,1200,1800 08/04/16 08/04/16 Previous Rx's Medication Instructions Recorded Metoprolol Tartrate [Lopressor] 50 mg PO BID #60 tab 06/14/16 Ipratropium-Albuterol Nebulize 3 ml INHALATION RT-QID PRN #0 06/25/16 [Duoneb 0.5 mg-3 mg/3 ml Soln] ampul.neb oxyCODONE HCL/ACETAMINOPHEN 1 tab PO Q6HR PRN #10 tab 06/25/16 [Percocet 10-325 mg] Insulin NPH/Reg Insulin 70/30 15 unit SQ AC-SUPPER #3 vial 07/26/16 [humuLIN 70/30 VIAL] Insulin NPH/Reg Insulin 70/30 20 unit SQ AC-BRKFST #3 vial 07/26/16 [humuLIN 70/30 VIAL] Isosorbide Mononitrate ER [Imdur] 30 mg PO DAILY #30 tab.er.24h 07/26/16 Allergies Allergy/AdvReac Type Severity Reaction Status Date / Time Iodinated Contrast Media - Allergy Severe Anaphylaxis Verified 08/04/16 16:35 Oral and [Iodinated Contrast Media - IV Dye] nitrofurantoin Allergy Severe Anaphylaxis Verified 08/04/16 16:35 [From Macrobid] aspirin Allergy Rash/Hives Verified 08/04/16 16:35 cephalexin monohydrate Allergy Swelling Verified 08/04/16 16:35 [From Keflex] ciprofloxacin Allergy Unknown Verified 08/04/16 16:35 Penicillins Allergy Swelling Verified 08/04/16 16:35 Sulfa (Sulfonamide Allergy Rash/Hives Verified 08/04/16 16:35 Antibiotics) Review of Systems ROS Statement: Those systems with pertinent positive or pertinent negative responses have been documented in the HPI. ROS Other: All systems not noted in ROS Statement are negative. Past Medical History Past Medical History: Asthma, Coronary Artery Disease (CAD), Chest Pain / Angina , COPD, CVA/TIA, Diabetes Mellitus, Deep Vein Thrombosis (DVT), Hyperlipidemia, Hypertension, Myocardial Infarction (DE), Osteoarthritis (OA), Pneumonia, Renal Disease Additional Past Medical History / Comment(s): Recent hospitalizations with acute exacerbation COPD/purulent bronchitis and UTI, IDDM type II, DVT bilateral lower legs, cardiac murmur, congenital single right kidney, R nephrolithiasis per 05/2016 U/S, difficulty sleeping, clausterphobia, CVA, falls. 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 Past Psychological History: Anxiety, Depression Additional Psychological History / Comment(s): pt stated has some mild depression d/t medical problems but not hopeless. Denies any thoughts of harming self or others, no suicidal ideations. Pt resides in an apartment. She uses a cane or a wheelchair. She does not drive. She has a legal guardian, Anna Saavedra. She states her LG has a medicinal chemist assigned to her and that this medicinal chemist is suppose to take her to appointments. [employer] Worker contacted LG, Angelica Dai (Anna Saavedra not in office). LG states concern for pt returning to independent living due to pt being admitted to hospital often. LG states pt just left [place] [place] 07/06/16. Smoking Status: Current every day smoker Past Alcohol Use History: None Reported Additional Past Alcohol Use History / Comment(s): Patient is a smoker of 2 packs per day for 55 years. She denies any medical marijuana, marijuana, street drug use. She denies any alcohol use or abuse. She has been on disability for long period of time. She is currently living alone. Past Drug Use History: None Reported - Past Family History Mother Family Medical History: Cancer, Diabetes Mellitus, Myocardial Infarction (DE) Additional Family Medical History / Comment(s): from aortic anurysm Father Family Medical History: Renal Disease General Exam General appearance: alert, in no apparent distress Head exam: Present: atraumatic, normocephalic, normal inspection Eye exam: Present: normal appearance, PERRL, EOMI. Absent: scleral icterus, conjunctival injection, periorbital swelling ENT exam: Present: normal exam, mucous membranes moist Neck exam: Present: normal inspection. Absent: tenderness, meningismus, lymphadenopathy Respiratory exam: Present: normal lung sounds bilaterally. Absent: respiratory distress, wheezes, rales, rhonchi, stridor Cardiovascular Exam: Present: regular rate, normal rhythm, normal heart sounds. Absent: systolic murmur, diastolic murmur, rubs, gallop, clicks GI/Abdominal exam: Present: soft, normal bowel sounds. Absent: distended, tenderness, guarding, rebound, rigid Extremities exam: Present: normal inspection, full ROM, normal capillary refill. Absent: tenderness, pedal edema, joint swelling, calf tenderness Back exam: Present: normal inspection Neurological exam: Present: alert, oriented X3, CN II-XII intact Psychiatric exam: Present: normal affect, normal mood Skin exam: Present: warm, dry, intact, normal color. Absent: rash Course Vital Signs 08/04/16 16:05 Temperature 98.5 F Pulse Rate 72 Respiratory 20 Rate Blood Pressure 130/60 O2 Sat by Pulse 95 Oximetry - Reevaluation(s) Reevaluation #1: 08/04/16 17:37 Patient remains a chest pain EKG Findings - EKG Comments: EKG Findings:: EKG shows normal sinus rhythm at 67, IA 150, QRS 120, QTC 462 Medical Decision Making - Medical Decision Making Some Female here for evaluation of chest pain and anterior chest and heaviness in her chest. She has history of heart disease, complicated and complex medical history, initial EKG and troponin are negative, patient be admitted for cardiac evaluation - Lab Data Result diagrams: 08/04/16 16:02 08/04/16 16:02 Lab Results 08/04/16 08/04/16 08/04/16 Range/Units 16:02 16:02 16:02 WBC 10.1 (3.8-10.6) k/uL RBC 3.44 L (3.80-5.40) m/uL Hgb 10.3 L (11.4-16.0) gm/dL Hct 32.7 L (34.0-46.0) % MCV 95.0 (80.0-100.0) fL MCH 29.9 (25.0-35.0) pg MCHC 31.5 (31.0-37.0) g/dL RDW 13.8 (11.5-15.5) % Plt Count 353 (150-450) k/uL Neutrophils % 69 % Lymphocytes % 21 % Monocytes % 4 % Eosinophils % 3 % Basophils % 1 % Neutrophils # 6.9 (1.3-7.7) k/uL Lymphocytes # 2.1 (1.0-4.8) k/uL Monocytes # 0.4 (0-1.0) k/uL Eosinophils # 0.3 (0-0.7) k/uL Basophils # 0.1 (0-0.2) k/uL PT (9.0-12.0) sec INR (<1.1) APTT (22.0-30.0) sec Sodium 141 (137-145) mmol/L Potassium 5.4 H (3.5-5.1) mmol/L Chloride 109 H (98-107) mmol/L Carbon Dioxide 21 L (22-30) mmol/L Anion Gap 11 mmol/L BUN 43 H (7-17) mg/dL Creatinine 1.70 H (0.52-1.04) mg/dL Est GFR (MDRD) Af Amer 36 (>60 ml/min/1.73 sqM) Est GFR (MDRD) Non-Af 30 (>60 ml/min/1.73 sqM) Glucose 195 H (74-99) mg/dL Calcium 9.2 (8.4-10.2) mg/dL Magnesium 1.7 (1.6-2.3) mg/dL Total Bilirubin 0.3 (0.2-1.3) mg/dL AST 14 (14-36) U/L ALT 28 (9-52) U/L Alkaline Phosphatase 84 (38-126) U/L Total Creatine Kinase <20 L (30-135) U/L CK-MB (CK-2) 0.9 (0.0-2.4) ng/mL CK-MB (CK-2) Rel Index 0.0 Troponin I 0.025 (0.000-0.034) ng/mL Total Protein 6.0 L (6.3-8.2) g/dL Albumin 3.5 (3.5-5.0) g/dL Lipase 18 L (23-300) U/L /16/17 Range/Units 16:02 WBC (3.8-10.6) k/uL RBC (3.80-5.40) m/uL Hgb (11.4-16.0) gm/dL Hct (34.0-46.0) % MCV (80.0-100.0) fL MCH (25.0-35.0) pg MCHC (31.0-37.0) g/dL RDW (11.5-15.5) % Plt Count (150-450) k/uL Neutrophils % % Lymphocytes % % Monocytes % % Eosinophils % % Basophils % % Neutrophils # (1.3-7.7) k/uL Lymphocytes # (1.0-4.8) k/uL Monocytes # (0-1.0) k/uL Eosinophils # (0-0.7) k/uL Basophils # (0-0.2) k/uL PT 11.1 (9.0-12.0) sec INR 1.1 (<1.1) APTT 22.7 (22.0-30.0) sec Sodium (137-145) mmol/L Potassium (3.5-5.1) mmol/L Chloride (98-107) mmol/L Carbon Dioxide (22-30) mmol/L Anion Gap mmol/L BUN (7-17) mg/dL Creatinine (0.52-1.04) mg/dL Est GFR (MDRD) Af Amer (>60 ml/min/1.73 sqM) Est GFR (MDRD) Non-Af (>60 ml/min/1.73 sqM) Glucose (74-99) mg/dL Calcium (8.4-10.2) mg/dL Magnesium (1.6-2.3) mg/dL Total Bilirubin (0.2-1.3) mg/dL AST (14-36) U/L ALT (9-52) U/L Alkaline Phosphatase (38-126) U/L Total Creatine Kinase (30-135) U/L CK-MB (CK-2) (0.0-2.4) ng/mL CK-MB (CK-2) Rel Index Troponin I (0.000-0.034) ng/mL Total Protein (6.3-8.2) g/dL Albumin (3.5-5.0) g/dL Lipase (23-300) U/L - Radiology Data Radiology results: report reviewed (Chest x-ray is negative for acute disease), image reviewed Critical Care Time Critical Care Time: Yes Total Critical Care Time: 31 Disposition Clinical Impression: Chest pain Disposition: ADMITTED IP TO THIS HOSP Condition: Fair Referrals: Mallory Hernandez MD [Primary Care Provider] - 1-2 days
[2016-08-04 16:20] LABS: Basophils # (A) 0.1 k/uL (0-0.2); Basophils % (A) 1 %; CHCM 32.8; Eosinophils # (A) 0.3 k/uL (0-0.7); Eosinophils % (A) 3 %; HCT 32.7 % (34.0-46.0); HDW 3.02; HGB 10.3 gm/dL (11.4-16.0); Luc # (Auto) 0.27; Luc % (Auto) 3; Lymphocytes # (A) 2.1 k/uL (1.0-4.8); Lymphocytes % (A) 21 %; MCH 29.9 pg (25.0-35.0); MCHC 31.5 g/dL (31.0-37.0); Mean Platelet Volume 7.4; Monocytes # (A) 0.4 k/uL (0-1.0); Monocytes % (A) 4 %; Neutrophils # (A) 6.9 k/uL (1.3-7.7); Neutrophils % (A) 69 %; RBC 3.44 m/uL (3.80-5.40); RDW 13.8 % (11.5-15.5); WBC 10.1 k/uL (3.8-10.6); WBC (Perox) 10.37
[2016-08-04 16:28] LABS: INR 1.1 (<1.1); Partial Thromboplastin Time 22.7 sec (22.0-30.0); Prothrombin Time 11.1 sec (9.0-12.0)
[2016-08-04 16:30] LABS: Calcium 9.2 mg/dL (8.4-10.2); Magnesium 1.7 mg/dL (1.6-2.3); Potassium 5.4 mmol/L (3.5-5.1); Total Bilirubin 0.3 mg/dL (0.2-1.3)
--- NOTE | 2016-08-04 16:39 | XR ---
EXAMINATION TYPE: XR chest 2V DATE OF EXAM: 08/04/2016 4:33 PM COMPARISON: 07/21/2016 HISTORY: 70-year-old female with chest pain TECHNIQUE: Frontal and lateral views FINDINGS: Heart is borderline enlarged. Mild interstitial prominence appears chronic and improved from prior ex am. No consolidation or pleural effusion. IMPRESSION: Borderline heart size. Improved aeration within the lungs. No definite acute process.
[2016-08-04 16:40] LABS: Creatine Kinase <20 U/L (30-135)
[2016-08-04 16:54] LABS: Creatine Kinase MB 0.9 ng/mL (0.0-2.4); Troponin I 0.025 ng/mL (0.000-0.034)
[2016-08-04] MEDS ORDERED: ASPIRIN 81 MG CHEW PO STA (17:31)
[2016-08-04] MEDS ORDERED: NITROGLYCERIN SL TABS 0.4 MG TAB SUBLINGUAL PRN (17:31)
[2016-08-04] MEDS ORDERED: HEPARIN SODIUM,PORCINE 5,000 UNIT/ML 1 ML VIAL IV ONE (17:31)
[2016-08-04] MEDS ORDERED: HEPARIN SODIUM,PORCINE 5,000 UNIT/ML 1 ML VIAL IV PRN (17:31)
[2016-08-04] MEDS ORDERED: HEPARIN SODIUM,PORCINE/D5W PMX 25,000 UNIT in DEXTROSE/WATER 1 500ML.BAG IV SCH (17:45)
[2016-08-04] MEDS ORDERED: SODIUM CHLORIDE 0.9% 1,000 ML IV SCH (18:30)
[2016-08-04 18:48] LABS: Appearance,Urine Cloudy (Clear); Bacteria,Urine Moderate /hpf; Bilirubin,Urine Negative (Negative); Glucose,Urine (UA) Negative (Negative); Ketones,Urine Negative (Negative); Leukocyte Esterase,Urine Large (Negative); Mucus,Urine Rare /hpf; Nitrite,Urine Negative (Negative); PH, Urine 5.5 (5.0-8.0); Particle Count 109519; Protein,Urine 2+ (Negative); RBC,Urine 3 /hpf (0-5); Specific Gravity,Urine 1.015 (1.001-1.035); Squamous Epithelial Cell,Urine 11 /hpf (0-4); UA Billing (MACRO vs. MICRO) MICRO; Urobilinogen,Urine <2.0 mg/dL (<2.0); WBC,Urine 63 /hpf (0-5)
[2016-08-04] MEDS ORDERED: SODIUM POLYSTYRENE SULFONATE 15 GM/60 ML BOTTLE PO STA (19:22)
[2016-08-04] MEDS ORDERED: IPRATROPIUM-ALBUTEROL 3 ML NEB INHALATION PRN (19:23)
[2016-08-04] MEDS ORDERED: ALBUTEROL INHALER 60 PUFF/8 GM INHALER INHALATION PRN (19:23)
[2016-08-04] MEDS ORDERED: INSULIN NPH/REG INSULIN 70/30 300 UNIT/3 ML VIAL SQ SCH (19:30)
[2016-08-04 20:36] LABS: Glucose,Whole Blood 165 mg/dL (75-99)
[2016-08-04] MEDS: GABAPENTIN 100 MG CAP PO SCH (20:45)
[2016-08-04] MEDS: METOPROLOL TARTRATE 50 MG TAB PO SCH (20:45)
[2016-08-04] MEDS: oxyCODONE-APAP 10-325MG 1 EACH TAB PO PRN (20:45)
[2016-08-04] MEDS ORDERED: diphenhydrAMINE 50 MG CAP PO PRN (20:51)
[2016-08-04 22:44] LABS: Creatine Kinase <20 U/L (30-135)
[2016-08-04 22:56] LABS: Troponin I 0.028 ng/mL (0.000-0.034)
[2016-08-05 01:24] VITALS: RESP 16
[2016-08-05] MEDS: oxyCODONE-APAP 10-325MG 1 EACH TAB PO PRN ×2 (04:15→11:38)
[2016-08-05] MEDS: GABAPENTIN 100 MG CAP PO SCH ×2 (04:16→13:21)
[2016-08-05 05:10] LABS: Mean Platelet Volume 7.4
[2016-08-05 05:11] LABS: Calcium 9.3 mg/dL (8.4-10.2); Potassium 4.9 mmol/L (3.5-5.1)
[2016-08-05 05:34] LABS: Troponin I 0.023 ng/mL (0.000-0.034)
[2016-08-05 07:10] LABS: Glucose,Whole Blood 76 mg/dL (75-99)
[2016-08-05] MEDS ORDERED: INSULIN NPH/REG INSULIN 70/30 300 UNIT/3 ML VIAL SQ SCH (07:30)
[2016-08-05] MEDS ORDERED: CILOSTAZOL 100 MG TAB PO SCH (08:00)
[2016-08-05] MEDS ORDERED: FAMOTIDINE 20 MG TAB PO SCH (08:00)
[2016-08-05 08:11] LABS: Glucose,Whole Blood 129 mg/dL (75-99)
[2016-08-05 08:40] VITALS: PULSE 70
[2016-08-05] MEDS ORDERED: SERTRALINE 100 MG TAB PO SCH (09:00)
[2016-08-05] MEDS ORDERED: ATORVASTATIN 80 MG TAB PO SCH (09:00)
[2016-08-05] MEDS ORDERED: CLOPIDOGREL 75 MG TAB PO SCH (09:00)
[2016-08-05] MEDS ORDERED: ISOSORBIDE MONONITRATE ER 30 MG TAB.ER.24H PO SCH (09:00)
[2016-08-05] MEDS ORDERED: EZETIMIBE 10 MG TAB PO SCH (09:00)
[2016-08-05] MEDS ORDERED: ASPIRIN 325 MG TAB PO SCH (09:00)
[2016-08-05] MEDS ORDERED: amLODIPine 10 MG TAB PO STA (09:16)
[2016-08-05] MEDS ORDERED: AMINOPHYLLINE 500 MG/20 ML VIAL IV PRN (09:34)
[2016-08-05] MEDS ORDERED: REGADENOSON 0.4 MG/5 ML SYRINGE IV ONE (09:34)
[2016-08-05] MEDS: hydrALAZINE HCL 50 MG TAB PO SCH ×2 (09:42→13:20)
[2016-08-05] MEDS: METOPROLOL TARTRATE 50 MG TAB PO SCH (11:30)
[2016-08-05 12:07] LABS: Glucose,Whole Blood 180 mg/dL (75-99)
[2016-08-05 12:22] VITALS: BP 154/69; TEMP 98.2
--- NOTE | 2016-08-05 12:59 | CONS ---
DATE OF CONSULTATION: This is a 70-year-old female. REASON FOR CONSULTATION: Cardiac evaluation and treatment. Patient admitted to the hospital with recurrent chest heaviness and tightness, described as tight and exploding balloon, starting in the precordial area, goes back to her interscapular area, lasting for 2 to 5 minutes, and relieved by sublingual nitroglycerin. The patient is documented to have severe peripheral vascular disease. Patient is a diabetic, hypertensive, hypercholesterolemic, ex-smoker, hyperlipidemic and severe peripheral vascular disease. Heart catheterization done by Dr. Urbano in May of this year showed her to have significant disease involving the right coronary and moderate disease involving the proximal LAD. Patient does have hypokinesis of the anterior wall with ejection fractions have dropped from 55% in 2015 to 35% to 40% highly suggestive of significant involvement. If the notes, if there is any inducible reversible ischemia, Dr. Urbano will consider doing the interventions on the LAD realizing the technical nature of the problems, the patient also has a creatinine elevated. BUN and creatinine are high and also patient is allergic to IVP DYE which may complicate problems but realizing that her creatinine is 1.5 and BUN of 39, potassium 4.9. Troponin x2 are negative. Patient is also a diabetic. ( ), but if the Lexiscan is abnormal, need to do interventions if at all possible realizing multiple complex problems. Patient's past history remarkable for asthma, coronary artery disease, history of CVA, diabetes, deep vein thrombosis, hyperlipidemia, hypertension, history of myocardial infarction. ALLERGIES: Patient's claims to be allergic to IVP DYE. Patient is in [place]. Family has . No children. Current medications prior to admission include albuterol Ventolin inhaler, atorvastatin 80 mg p.o. daily, cilostazol 100 mg p.o. b.i.d., Plavix 75 mg p.o. daily, ( ) mg p.o. b.i.d., Zetia 10 mg p.o. daily, famotidine 20 mg p.o. b.i.d., gabapentin 100 mg p.o. t.i.d. Patient is on heparin, which will be discontinued. Hydralazine 50 mg p.o. ( ). Patient is also on isosorbide mononitrate, which is going to be held until the stress test is done. Patient was started on amlodipine 10 mg p.o. today for the blood pressure control as the blood pressure is high. Patient's physical examination revealed alert and oriented lady not in acute distress. Allergic to [employer]IN[employer]ENTS, NITROFURANTOIN. NECK: Neck is supple. No JVD. CARDIAC EXAMINATION: S1 and S2. Lungs are clinically clear except for scattered rhonchi. ABDOMEN: Soft, no organomegaly. Active bowel sounds. EXTREMITIES: No palpable pedal pulses. No pedal edema. EKG revealed normal sinus rhythm, normal ST-T waves with ( ) troponin x2 are negative. Nonspecific ST-T wave changes. Patient has an incomplete right bundle branch block . ASSESSMENT: 1. Recurrent chest pain suggestive of unstable angina. 2. Diabetes mellitus. Patient is on insulin. 3. Patient is also on metoprolol 50 mg p.o. b.i.d., which is on hold. 4. Chronic renal failure. 5. Hyperlipidemia. 6. Long-standing history of smoking. 7. Documented coronary artery disease by cardiac catheterization done in May 2016 ( ). RECOMMENDATIONS: Will proceed with a Lexiscan. If abnormal, will consider intervention by Dr. Urbano. If it is normal, patient may be able to go home.
[2016-08-05 13:37] LABS: Hemoglobin A1C 6.9 % (4.2-6.1)
[2016-08-05] MEDS ORDERED: LACTULOSE 20 GM/30 ML CUP PO ONE (14:00)
--- NOTE | 2016-08-05 14:28 | P.HPIM ---
History of Present Illness H&P Date: 08/05/16 Chief Complaint: Chest pain This is a 70-year-old female with a known history of myocardial infarction, coronary disease, hypertension, diabetes mellitus, CVA, chronic kidney disease and peripheral vascular disease. She presents to the emergency room with complaints of chest pain. Patient describes it as a bomb exploding in her chest. She feels that it is also having some burning that radiates to her back between her shoulder blades. Patient had a heart catheterization in May showing significant disease involving the right coronary are artery and moderate disease involving the proximal LAD. Patient was evaluated by cardiology. They recommended a Lexiscan stress test. However, patient refused to have the test done due to claustrophobia. Patient reports still having some chest discomfort not as bad as when she came in. Also evidence of a urinary tract infection was started on Rocephin. Troponins are negative 3 sets. EKG had shown normal sinus rhythm with a right bundle branch block chest x-ray was negative. Patient is complaining of constipation and some burning with urination. Reports last bowel movement was about 4 days ago. She did have some hypokalemia on admission potassium of 5.4 was given Kayexalate and potassium of 4.9 this morning. Patient is worried about losing all of her possessions since she'll be staying is a permanent resident at [facility] Review of Systems Please refer to HPI otherwise all other review of systems are negative Past Medical History Past Medical History: Asthma, Coronary Artery Disease (CAD), Chest Pain / Angina , COPD, CVA/TIA, Diabetes Mellitus, Deep Vein Thrombosis (DVT), Hyperlipidemia, Hypertension, Myocardial Infarction ([place]), Osteoarthritis (OA), Pneumonia, Renal Disease Additional Past Medical History / Comment(s): Recent hospitalizations with acute exacerbation COPD/purulent bronchitis and UTI, IDDM type II, DVT bilateral lower legs, cardiac murmur, congenital single right kidney, R nephrolithiasis per 05/2016 U/S, difficulty sleeping, clausterphobia, CVA, falls. 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 Past Psychological History: Anxiety, Depression Additional Psychological History / Comment(s): pt stated has some mild depression d/t medical problems but not hopeless. Denies any thoughts of harming self or others, no suicidal ideations. Pt resides in an apartment. She uses a cane or a wheelchair. She does not drive. She has a legal guardian, Anna Saavedra. She states her LG has a drying and winding supervisor assigned to her and that this drying and winding supervisor is suppose to take her to appointments. Investment Director contacted LG, Angelica Dai (Anna Saavedra not in office). LG states concern for pt returning to independent living due to pt being admitted to hospital often. LG states pt just left [facility] [place] 07/06/16. Smoking Status: Former smoker Past Alcohol Use History: None Reported Additional Past Alcohol Use History / Comment(s): Patient is a smoker of 2 packs per day for 55 years. She denies any medical marijuana, marijuana, street drug use. She denies any alcohol use or abuse. She has been on disability for long period of time. She is currently living alone. Past Drug Use History: None Reported - Past Family History Mother Family Medical History: Cancer, Diabetes Mellitus, Myocardial Infarction ([place]) Additional Family Medical History / Comment(s): from aortic anurysm Father Family Medical History: Renal Disease Medications and Allergies Home Medications Medication Instructions Recorded Confirmed Type Albuterol Inhaler [Ventolin Hfa 2 puff INHALATION RT-Q6H PRN 06/02/16 08/04/16 History Inhaler] Cilostazol [Pletal] 100 mg PO BID@0800,1600 06/02/16 08/04/16 History Clopidogrel [Plavix] 75 mg PO DAILY 06/02/16 08/04/16 History Ezetimibe [Zetia] 10 mg PO DAILY 06/02/16 08/04/16 History Sertraline HCl [Zoloft] 100 mg PO DAILY 06/02/16 08/04/16 History Famotidine [Pepcid] 20 mg PO BID@0800,1600 07/14/16 08/04/16 History Atorvastatin [Lipitor] 40 mg PO HS@199908/04/16 08/04/16 History Gabapentin [Neurontin] 100 mg PO TID@0500,1300,2100 08/04/16 08/04/16 History Nitroglycerin Sl Tabs [Nitrostat] 0.4 mg SUBLINGUAL Q5M PRN 08/04/16 08/04/16 History hydrALAZINE HCL [Apresoline] 50 mg PO TID@0800,1200,1800 08/04/16 08/04/16 History Allergies Allergy/AdvReac Type Severity Reaction Status Date / Time Iodinated Contrast Media - Allergy Severe Anaphylaxis Verified 08/04/16 16:35 Oral and [Iodinated Contrast Media - IV Dye] nitrofurantoin Allergy Severe Anaphylaxis Verified 08/04/16 16:35 [From Macrobid] aspirin Allergy Rash/Hives Verified 08/04/16 16:35 cephalexin monohydrate Allergy Swelling Verified 08/04/16 16:35 [From Keflex] ciprofloxacin Allergy Unknown Verified 08/04/16 16:35 Penicillins Allergy Swelling Verified 08/04/16 16:35 Sulfa (Sulfonamide Allergy Rash/Hives Verified 08/04/16 16:35 Antibiotics) Physical Exam Vitals: Vital Signs Temp Pulse Pulse Pulse Pulse Resp BP 08/05/16 12:00 98.2 F 70 16 08/05/16 08:00 98.3 F 70 16 08/05/16 04:00 98.4 F 69 16 08/05/16 03:52 16 08/05/16 00:00 98.5 F 60 16 08/04/16 20:00 18 08/04/16 18:40 98.0 F 75 18 08/04/16 18:05 97 F L 76 18 150/70 BP Pulse Ox 08/05/16 12:00 154/69 100 08/05/16 08:00 183/87 96 08/05/16 04:00 183/80 95 08/05/16 03:52 08/05/16 00:00 128/55 92 L 08/04/16 20:00 08/04/16 18:40 164/79 95 08/04/16 18:05 95 Intake and Output 08/04/16 08/05/16 08/05/16 22:59 06:59 14:59 Intake Total 137.741 Balance 137.741 Intake: Intake, IV Titration 137.741 Amount Heparin Sodium,Porcine/ 137.741 D5w Pmx 25,000 unit In Dextrose/Water 1 500ml. bag @ 12 UNITS/KG/HR 16. 11 mls/hr IV .Q24H [facility] Rx #:[id number] Other: # Voids 1 Weight 64.7 kg Head normocephalic Neck supple Lungs clear to auscultation bilaterally no wheezing or crackles Heart regular rate and rhythm S1-S2, no rub or gallop Abdomen is soft nontender positive bowel sounds no hepatosplenomegaly. Suprapubic tenderness Extremities no edema Neuro alert and orientated to 3 Results CBC & Chem 7: 08/05/16 04:17 08/05/16 04:17 Labs: Abnormal Lab Results - Last 24 Hours (Table) 08/04/16 08/04/16 08/05/16 Range/Units 20:35 21:44 00:00 APTT 32.3 H (22.0-30.0) sec Chloride (98-107) mmol/L BUN (7-17) mg/dL Creatinine (0.52-1.04) mg/dL POC Glucose (mg/dL) 165 H (75-99) mg/dL Total Creatine Kinase <20 L (30-135) U/L 08/05/16 08/05/16 08/05/16 Range/Units 04:17 04:17 08:08 APTT (22.0-30.0) sec Chloride 110 H (98-107) mmol/L BUN 39 H (7-17) mg/dL Creatinine 1.58 H (0.52-1.04) mg/dL POC Glucose (mg/dL) 129 H (75-99) mg/dL Total Creatine Kinase 20 L (30-135) U/L 08/05/16 Range/Units 12:06 APTT (22.0-30.0) sec Chloride (98-107) mmol/L BUN (7-17) mg/dL Creatinine (0.52-1.04) mg/dL POC Glucose (mg/dL) 180 H (75-99) mg/dL Total Creatine Kinase (30-135) U/L Thrombosis Risk Factor Assmnt - Choose All That Apply Any of the Below Risk Factors Present?: Yes Each Factor Represents 1 point: Abnormal pulmonary function (COPD), Obesity ( BMI >25) Other Risk Factors: Yes Each Risk Factor Represents 2 Points: Age 61-74 years Each Risk Factor Represents 3 Points: History of DVT/PE Other congenital or acquired thrombophilia - If yes, enter type in comment: No Thrombosis Risk Factor Assessment Total Risk Factor Score: 7 Thrombosis Risk Factor Assessment Level: High Risk Assessment and Plan Plan: 1. Chest pain: [place] ruled out. Troponins are negative 3 sets. EKG shows a normal sinus rhythm with a right bundle branch block. Patient was evaluated by cardiology they recommended a Lexiscan stress test. however, patient refused to have stress tests completed. 2. UTI: Await urine culture patient currently on Rocephin 3. Essential hypertension with uncontrolled blood pressures. Cardiology started Norvasc 4. Diabetes mellitus type 2 resume her home insulin and continue with sliding scale coverage 5. Constipation we'll give 1 dose of lactulose and colace 6. History of myocardial infarction 7. History of CVA 8. History of chronic kidney disease, stage IIIB Time with Patient: Greater than 30 (Greater than 50% of the total time spent in counseling and coordination of care.I performed an examination of the patient and discussed their management with the physician Pipe Liner. I have reviewed the Physician Pipe Liner's notes and agree with the documented findings and plan of care)
--- NOTE | 2016-08-05 15:16 | P.DS ---
Providers Date of admission: 08/04/16 17:31 Expected date of discharge: 08/05/16 Attending physician: Mallory Hernandez Consults: Dr. Kapadia Primary care physician: Mallory Hernandez Hospital Course: Discharge diagnosis 1. Chest pain: [place] ruled out. Troponins are negative 3 sets. EKG shows a normal sinus rhythm with a right bundle branch block. Patient was evaluated by cardiology they recommended a Lexiscan stress test. however, patient refused to have stress tests completed. 2. UTI: Await urine culture patient currently on Rocephin 3. Essential hypertension with uncontrolled blood pressures. Cardiology started Norvasc 4. Diabetes mellitus type 2 resume her home insulin and continue with sliding scale coverage 5. Constipation we'll give 1 dose of lactulose and colace 6. History of myocardial infarction 7. History of CVA 8. History of chronic kidney disease, stage IIIB Hospital course This is a 70-year-old female with a known history of myocardial infarction, coronary disease, hypertension, diabetes mellitus, CVA, chronic kidney disease and peripheral vascular disease. She presents to the emergency room with complaints of chest pain. Patient describes it as a bomb exploding in her chest. She feels that it is also having some burning that radiates to her back between her shoulder blades. Patient had a heart catheterization in May showing significant disease involving the right coronary are artery and moderate disease involving the proximal LAD. Patient was evaluated by cardiology. They recommended a Lexiscan stress test. However, patient refused to have the test done due to claustrophobia. Patient reports still having some chest discomfort not as bad as when she came in. Also evidence of a urinary tract infection was started on Rocephin. Troponins are negative 3 sets. EKG had shown normal sinus rhythm with a right bundle branch block chest x-ray was negative. Patient is complaining of constipation and some burning with urination. Reports last bowel movement was about 4 days ago. Patient's chest pain has improved. She does is she is refusing stress test. She will be discharged to [facility]. There is no evidence of myocardial infarction. Patient did have evidence of UTI. She will continue Ceftin for 5 more days. Also will continue with the Colace at the longterm for her constipation. Patient is stable for discharge. Please refer to chart for further details. Also note during this admission Norvasc was added to her blood pressure medications. Blood pressures have shown improvement. Patient Condition at Discharge: Stable Plan - Discharge Summary New Discharge Prescriptions: Cefuroxime [Ceftin] 250 mg PO BID #10 tablet oxyCODONE HCL/ACETAMINOPHEN [Percocet 10-325 mg] 1 tab PO Q6HR PRN #20 tab PRN Reason: Pain Discharge Medication List Albuterol Inhaler [Ventolin Hfa Inhaler] 2 puff INHALATION RT-Q6H PRN 06/02/16 [ History] Cilostazol [Pletal] 100 mg PO BID@0800,1600 06/02/16 [History] Clopidogrel [Plavix] 75 mg PO DAILY 06/02/16 [History] Ezetimibe [Zetia] 10 mg PO DAILY 06/02/16 [History] Sertraline HCl [Zoloft] 100 mg PO DAILY 06/02/16 [History] Metoprolol Tartrate [Lopressor] 50 mg PO BID #60 tab 06/14/16 [Rx] Ipratropium-Albuterol Nebulize [Duoneb 0.5 mg-3 mg/3 ml Soln] 3 ml INHALATION RT -QID PRN #0 ampul.neb 06/25/16 [Rx] Famotidine [Pepcid] 20 mg PO BID@0800,1600 07/14/16 [History] Insulin NPH/Reg Insulin 70/30 [humuLIN 70/30 VIAL] 15 unit SQ AC-SUPPER #3 vial 07/26/16 [Rx] Insulin NPH/Reg Insulin 70/30 [humuLIN 70/30 VIAL] 20 unit SQ AC-BRKFST #3 vial 07/26/16 [Rx] Isosorbide Mononitrate ER [Imdur] 30 mg PO DAILY #30 tab.er.24h 07/26/16 [Rx] Atorvastatin [Lipitor] 40 mg PO HS@199908/04/16 [History] Gabapentin [Neurontin] 100 mg PO TID@0500,1300,2100 08/04/16 [History] Nitroglycerin Sl Tabs [Nitrostat] 0.4 mg SUBLINGUAL Q5M PRN 08/04/16 [History] hydrALAZINE HCL [Apresoline] 50 mg PO TID@0800,1200,1800 08/04/16 [History] Cefuroxime [Ceftin] 250 mg PO BID #10 tablet 08/05/16 [Rx] Docusate [Colace] 100 mg PO BID cap 08/05/16 [Rx] amLODIPine [Norvasc] 10 mg PO HS tab 08/05/16 [Rx] oxyCODONE HCL/ACETAMINOPHEN [Percocet 10-325 mg] 1 tab PO Q6HR PRN #20 tab 08/05 [Rx] Follow up Appointment(s)/Referral(s): Jagdeep Urbano MD [STAFF PHYSICIAN] - 2 Weeks Mallory Hernandez MD [Primary Care Provider] - 1 Week Activity/Diet/Wound Care/Special Instructions: Diet: cardiac, diabetic Activity: as tolerated Patient to be discharged back to [facility] of . Dr. Hernandez will follow her there Discharge Disposition: TRANSFER TO SNF/ECF
[2016-08-05] MEDS ORDERED: amLODIPine 10 MG TAB PO SCH (21:00)
[2016-08-05] MEDS ORDERED: DOCUSATE 100 MG CAP PO SCH (21:00)
[2016-08-06] MEDS ORDERED: FAMOTIDINE 20 MG TAB PO SCH (08:00)
== END 2016-08-05 15:51 ==
LOC: EC 16:00 → 3OBS 17:31
PROVIDERS: ADMIT Internal Medicine; ATTEND Internal Medicine
DX: R07.9 Chest pain, unspecified (principal); I25.10 Atherosclerotic heart disease of native coronary artery without angina pectoris; I12.9 Hypertensive chronic kidney disease with stage 1 through stage 4 chronic kidney disease, or unspecified chronic kidney disease; N18.3 Chronic kidney disease, stage 3 (moderate); N39.0 Urinary tract infection, site not specified; J44.9 Chronic obstructive pulmonary disease, unspecified; J45.909 Unspecified asthma, uncomplicated; E11.9 Type 2 diabetes mellitus without complications; E78.5 Hyperlipidemia, unspecified; I73.9 Peripheral vascular disease, unspecified; I45.10 Unspecified right bundle-branch block; E87.6 Hypokalemia; Z79.4 Long term (current) use of insulin; Z88.0 Allergy status to penicillin; Z86.73 Personal history of transient ischemic attack (TIA), and cerebral infarction without residual deficits; I25.2 Old myocardial infarction; Z86.718 Personal history of other venous thrombosis and embolism; F17.200 Nicotine dependence, unspecified, uncomplicated; F32.9 Major depressive disorder, single episode, unspecified; F40.240 Claustrophobia; K59.00 Constipation, unspecified; Z79.02 Long term (current) use of antithrombotics/antiplatelets; Z79.899 Other long term (current) drug therapy; Z91.041 Radiographic dye allergy status; Z88.6 Allergy status to analgesic agent; Z88.3 Allergy status to other anti-infective agents; Z88.2 Allergy status to sulfonamides; Z88.8 Allergy status to other drugs, medicaments and biological substances; E78.00 Pure hypercholesterolemia, unspecified
CPT/HCPCS: 36415; 93005; 80061; 80053; 80048; 83036; 82550 ×2; 82553 ×2; 83690; 84484 ×2; 85025; 83735; 85049; 85610; 85730 ×2; 81001; 71020; 99291; 96376; G0378 ×2; J1644 ×2; J0696 ×2; 96365

== ENCOUNTER 2016-09-20 07:21 | Inpatient (IN) | payer MEDICARE, OTHER ==
--- NOTE | 2016-09-20 07:51 | ED ---
General Adult HPI - General Chief complaint: Dizziness Stated complaint: UTI Time Seen by Provider: 09/20/16 07:30 Source: patient, EMS, RN notes reviewed Mode of arrival: EMS - History of Present Illness Initial comments: This is a 70-year-old female comes emergency Department complaining that she has urinary frequency and she's had a long history of urinary tract infections. Patient also complains of lower back pain. Patient states his been no injury or trauma. Patient denies any radiation of the pain. Patient states she has not taken any of her blood pressure medications this morning or any other medications. Patient denies any headache patient denies numbness weakness. Patient denies chest pain palpitations difficulty breathing. Patient denies any recent fever chills or cough. Patient is asking for pain medications repeatedly. - Related Data Home Medications Medication Instructions Recorded Confirmed Albuterol Inhaler [Ventolin Hfa 2 puff INHALATION RT-BID PRN 06/02/16 09/20/16 Inhaler] Cilostazol [Pletal] 100 mg PO BID 06/02/16 09/20/16 Clopidogrel [Plavix] 75 mg PO BID 06/02/16 09/20/16 Ezetimibe [Zetia] 10 mg PO DAILY 06/02/16 09/20/16 Sertraline HCl [Zoloft] 100 mg PO DAILY 06/02/16 09/20/16 Famotidine [Pepcid] 20 mg PO BID@0800,1600 07/14/16 09/20/16 Nitroglycerin Sl Tabs [Nitrostat] 0.4 mg SUBLINGUAL Q5M PRN 08/04/16 09/20/16 Fluticasone Nasal [place] [Flonase 2 spr EA NOSTRIL DAILY PRN 09/20/16 09/20/16 Nasal [place]] Gabapentin [Neurontin] 800 mg PO TID 09/20/16 09/20/16 Hydrocodone/Acetaminophen [[place] 1 tab PO Q8HR PRN 09/20/16 09/20/16 10-325] Insulin NPH Hum/Reg Insulin Hm See Protocol SQ BID 09/20/16 09/20/16 [NovoLIN 70-30 100 UNIT/ML VIAL] Lisinopril [Zestril] 10 mg PO DAILY 09/20/16 09/20/16 Allergies Allergy/AdvReac Type Severity Reaction Status Date / Time Iodinated Contrast Media - Allergy Severe Anaphylaxis Verified 09/20/16 08:24 Oral and [Iodinated Contrast Media - IV Dye] nitrofurantoin Allergy Severe Anaphylaxis Verified 09/20/16 08:24 [From Macrobid] cephalexin monohydrate Allergy Swelling Verified 09/20/16 08:24 [From Keflex] ciprofloxacin Allergy Unknown Verified 09/20/16 08:24 Penicillins Allergy Swelling Verified 09/20/16 08:24 Sulfa (Sulfonamide Allergy Rash/Hives Verified 09/20/16 08:24 Antibiotics) Review of Systems ROS Statement: Those systems with pertinent positive or pertinent negative responses have been documented in the HPI. ROS Other: All systems not noted in ROS Statement are negative. Past Medical History Past Medical History: Asthma, Coronary Artery Disease (CAD), Chest Pain / Angina , COPD, CVA/TIA, Diabetes Mellitus, Deep Vein Thrombosis (DVT), Hyperlipidemia, Hypertension, Myocardial Infarction ([place]), Osteoarthritis (OA), Pneumonia, Renal Disease Additional Past Medical History / Comment(s): Recent hospitalizations with acute exacerbation COPD/purulent bronchitis and UTI, IDDM type II, DVT bilateral lower legs, cardiac murmur, congenital single right kidney, R nephrolithiasis per 05/2016 U/S, difficulty sleeping, clausterphobia, CVA, falls. 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 Past Psychological History: Anxiety, Depression Additional Psychological History / Comment(s): pt stated has some mild depression d/t medical problems but not hopeless. Denies any thoughts of harming self or others, no suicidal ideations. Pt resides in an apartment. She uses a cane or a wheelchair. She does not drive. She has a legal guardian, Anna Saavedra. She states her LG has a nurse first assist assigned to her and that this nurse first assist is suppose to take her to appointments. Licensed Pharmacist contacted LG, Angelica Dai (Anna Saavedra not in office). LG states concern for pt returning to independent living due to pt being admitted to hospital often. LG states pt just left [facility] 07/06/16. Smoking Status: Former smoker Past Alcohol Use History: None Reported Additional Past Alcohol Use History / Comment(s): Patient is a smoker of 2 packs per day for 55 years. She denies any medical marijuana, marijuana, street drug use. She denies any alcohol use or abuse. She has been on disability for long period of time. She is currently living alone. Past Drug Use History: None Reported - Past Family History Mother Family Medical History: Cancer, Diabetes Mellitus, Myocardial Infarction ([place]) Additional Family Medical History / Comment(s): from aortic anurysm Father Family Medical History: Renal Disease General Exam - General Exam Comments Initial Comments: GENERAL: Patient is well-developed and well-nourished. Patient is nontoxic and well- hydrated and is in moderate distress. ENT: Neck is soft and supple. No significant lymphadenopathy is noted. Oropharynx is clear. Moist mucous membranes. Neck has full range of motion without eliciting any pain. EYES: The sclera were anicteric and conjunctiva were pink and moist. Extraocular movements were intact and pupils were equal round and reactive to light. Eyelids were unremarkable. PULMONARY: Unlabored respirations. Good breath sounds bilaterally. No audible rales rhonchi or wheezing was noted. CARDIOVASCULAR: There is a regular rate and rhythm without any murmurs gallops or rubs. ABDOMEN: Patient has some mild lower abdominal tenderness SKIN: Skin is clear with no lesions or rashes and otherwise unremarkable. NEUROLOGIC: Patient is alert and oriented x3. Cranial nerves II through XII are grossly intact. Motor and sensory are also intact. Normal speech, volume and content. Symmetrical smile. MUSCULOSKELETAL: Normal extremities with adequate strength and full range of motion. LYMPHATICS: No significant lymphadenopathy is noted PSYCHIATRIC: Normal psychiatric evaluation. Normal interpersonal interactions appears functionally intact in deals appropriately with others. No signs of depression. No signs of anxiety. Course Vital Signs 09/20/16 09/20/16 09/20/16 07:22 08:22 08:39 Temperature 98.7 F Pulse Rate 88 90 84 Respiratory 18 18 18 Rate Blood Pressure 251/113 229/103 235/95 O2 Sat by Pulse 95 95 97 Oximetry 09/20/16 09/20/1617 08:47 09:25 09:34 Temperature Pulse Rate 82 81 84 Respiratory 20 18 Rate Blood Pressure 218/94 242/109 185/83 O2 Sat by Pulse 97 Oximetry 09/20/16 10:01 Temperature Pulse Rate 90 Respiratory 18 Rate Blood Pressure 181/86 O2 Sat by Pulse 98 Oximetry Medical Decision Making - Medical Decision Making EKG shows normal sinus rhythm at 87 bpm NC interval is 150 QRS is 126 QT interval 36 QTC is 464. Patient's EKG shows no ST segment elevation or depression patient has a right bundle-branch block. Chest x-ray shows no acute normalities. Patient had an elevated troponin without EKG changes. May be secondary to hypertensive urgency Spoke with Dr. Pereira agreed to admit the patient admitted the patient I wrote admitting orders and consult to cardiology - Lab Data Result diagrams: 09/20/16 08:00 09/20/16 08:00 Lab Results 09/20/16 09/20/16 09/20/16 Range/Units 08:00 08:00 08:00 WBC 9.5 (3.8-10.6) k/uL RBC 4.18 (3.80-5.40) m/uL Hgb 12.7 (11.4-16.0) gm/dL Hct 37.6 (34.0-46.0) % MCV 90.0 D (80.0-100.0) fL MCH 30.3 (25.0-35.0) pg MCHC 33.6 (31.0-37.0) g/dL RDW 13.8 (11.5-15.5) % Plt Count 357 (150-450) k/uL Neutrophils % 64 % Lymphocytes % 25 % Monocytes % 6 % Eosinophils % 2 % Basophils % 0 % Neutrophils # 6.1 (1.3-7.7) k/uL Lymphocytes # 2.4 (1.0-4.8) k/uL Monocytes # 0.6 (0-1.0) k/uL Eosinophils # 0.2 (0-0.7) k/uL Basophils # 0.0 (0-0.2) k/uL PT (9.0-12.0) sec INR (<1.1) APTT (22.0-30.0) sec Sodium 142 (137-145) mmol/L Potassium 5.1 (3.5-5.1) mmol/L Chloride 107 (98-107) mmol/L Carbon Dioxide 25 (22-30) mmol/L Anion Gap 10 mmol/L BUN 26 H (7-17) mg/dL Creatinine 1.08 H (0.52-1.04) mg/dL Est GFR (MDRD) Af Amer >60 (>60 ml/min/1.73 sqM) Est GFR (MDRD) Non-Af 50 (>60 ml/min/1.73 sqM) Glucose 154 H (74-99) mg/dL Plasma Lactic Acid Hector (0.7-2.0) mmol/L Calcium 10.1 (8.4-10.2) mg/dL Magnesium 1.6 (1.6-2.3) mg/dL Total Bilirubin 0.5 (0.2-1.3) mg/dL AST 13 L (14-36) U/L ALT 21 (9-52) U/L Alkaline Phosphatase 101 (38-126) U/L Total Creatine Kinase 58 (30-135) U/L CK-MB (CK-2) 2.1 (0.0-2.4) ng/mL CK-MB (CK-2) Rel Index 3.6 Troponin I 0.183 H* (0.000-0.034) ng/mL Total Protein 7.6 (6.3-8.2) g/dL Albumin 4.3 (3.5-5.0) g/dL Urine Color Urine Appearance (Clear) Urine pH (5.0-8.0) Ur Specific [place] (1.001-1.035) Urine Protein (Negative) Urine Glucose (UA) (Negative) Urine Ketones (Negative) Urine Blood (Negative) Urine Nitrite (Negative) Urine Bilirubin (Negative) Urine Urobilinogen (<2.0) mg/dL Ur Leukocyte Esterase (Negative) Urine RBC (0-5) /hpf Urine WBC (0-5) /hpf 09/20/16 09/20/16 09/20/16 Range/Units 08:00 08:00 08:00 WBC (3.8-10.6) k/uL RBC (3.80-5.40) m/uL Hgb (11.4-16.0) gm/dL Hct (34.0-46.0) % MCV (80.0-100.0) fL MCH (25.0-35.0) pg MCHC (31.0-37.0) g/dL RDW (11.5-15.5) % Plt Count (150-450) k/uL Neutrophils % % Lymphocytes % % Monocytes % % Eosinophils % % Basophils % % Neutrophils # (1.3-7.7) k/uL Lymphocytes # (1.0-4.8) k/uL Monocytes # (0-1.0) k/uL Eosinophils # (0-0.7) k/uL Basophils # (0-0.2) k/uL PT 10.1 (9.0-12.0) sec INR 1.0 (<1.1) APTT 21.0 L (22.0-30.0) sec Sodium (137-145) mmol/L Potassium (3.5-5.1) mmol/L Chloride (98-107) mmol/L Carbon Dioxide (22-30) mmol/L Anion Gap mmol/L BUN (7-17) mg/dL Creatinine (0.52-1.04) mg/dL Est GFR (MDRD) Af Amer (>60 ml/min/1.73 sqM) Est GFR (MDRD) Non-Af (>60 ml/min/1.73 sqM) Glucose (74-99) mg/dL Plasma Lactic Acid Hector 2.0 (0.7-2.0) mmol/L Calcium (8.4-10.2) mg/dL Magnesium (1.6-2.3) mg/dL Total Bilirubin (0.2-1.3) mg/dL AST (14-36) U/L ALT (9-52) U/L Alkaline Phosphatase (38-126) U/L Total Creatine Kinase (30-135) U/L CK-MB (CK-2) (0.0-2.4) ng/mL CK-MB (CK-2) Rel Index Troponin I (0.000-0.034) ng/mL Total Protein (6.3-8.2) g/dL Albumin (3.5-5.0) g/dL Urine Color Colorless Urine Appearance Clear (Clear) Urine pH 7.5 (5.0-8.0) Ur Specific [place] 1.006 (1.001-1.035) Urine Protein 2+ H (Negative) Urine Glucose (UA) Negative (Negative) Urine Ketones Negative (Negative) Urine Blood Negative (Negative) Urine Nitrite Negative (Negative) Urine Bilirubin Negative (Negative) Urine Urobilinogen <2.0 (<2.0) mg/dL Ur Leukocyte Esterase Negative (Negative) Urine RBC 1 (0-5) /hpf Urine WBC 2 (0-5) /hpf Disposition Clinical Impression: Hypertensive urgency, Elevated troponin Disposition: ADMITTED IP TO THIS HOSP Referrals: Mallory Hernandez MD [Primary Care Provider] - 1-2 days Time of Disposition: 09:43
[2016-09-20] MEDS ORDERED: LABETALOL 5 MG/ML VIAL MDV IVP STA (08:20)
[2016-09-20 08:31] LABS: Appearance,Urine Clear (Clear); Bilirubin,Urine Negative (Negative); Glucose,Urine (UA) Negative (Negative); Ketones,Urine Negative (Negative); Leukocyte Esterase,Urine Negative (Negative); Nitrite,Urine Negative (Negative); PH, Urine 7.5 (5.0-8.0); Particle Count 545; Protein,Urine 2+ (Negative); RBC,Urine 1 /hpf (0-5); Specific Gravity,Urine 1.006 (1.001-1.035); UA Billing (MACRO vs. MICRO) MICRO; Urobilinogen,Urine <2.0 mg/dL (<2.0); WBC,Urine 2 /hpf (0-5)
[2016-09-20] MEDS: HYDROmorphone 1 MG/ML 1 ML SYRINGE IVP STA ×3 (08:33→12:31)
[2016-09-20 08:38] LABS: Prothrombin Time 10.1 sec (9.0-12.0)
[2016-09-20 08:40] LABS: ALT 21 U/L (9-52); AST 13 U/L (14-36); Alkaline Phosphatase 101 U/L (38-126); Anion Gap 10 mmol/L; Blood Urea Nitrogen 26 mg/dL (7-17); Calcium 10.1 mg/dL (8.4-10.2); Carbon Dioxide 25 mmol/L (22-30); Chloride 107 mmol/L (98-107); Glucose 154 mg/dL (74-99); Magnesium 1.6 mg/dL (1.6-2.3); Non-African American GFR(MDRD) 50 (>60 ml/min/1.73 sqM); Potassium 5.1 mmol/L (3.5-5.1); Sodium 142 mmol/L (137-145); Total Bilirubin 0.5 mg/dL (0.2-1.3); Total Protein 7.6 g/dL (6.3-8.2)
[2016-09-20 08:46] LABS: Basophils % (A) 0 %; CH 30.3; CHCM 33.8; Eosinophils # (A) 0.2 k/uL (0-0.7); Eosinophils % (A) 2 %; HCT 37.6 % (34.0-46.0); HDW 2.96; HGB 12.7 gm/dL (11.4-16.0); Luc # (Auto) 0.17; Luc % (Auto) 2; Lymphocytes # (A) 2.4 k/uL (1.0-4.8); Lymphocytes % (A) 25 %; MCH 30.3 pg (25.0-35.0); MCHC 33.6 g/dL (31.0-37.0); Mean Platelet Volume 7.4; Monocytes # (A) 0.6 k/uL (0-1.0); Monocytes % (A) 6 %; Neutrophils # (A) 6.1 k/uL (1.3-7.7); Neutrophils % (A) 64 %; RBC 4.18 m/uL (3.80-5.40); RDW 13.8 % (11.5-15.5); WBC 9.5 k/uL (3.8-10.6); WBC (Perox) 9.67
[2016-09-20 09:08] LABS: Creatine Kinase MB 2.1 ng/mL (0.0-2.4)
[2016-09-20 09:12] LABS: Troponin I 0.183 ng/mL (0.000-0.034)
[2016-09-20] MEDS ORDERED: hydrALAZINE HCL 20 MG/ML 1 ML VIAL IVP STA ×2 (09:18→10:51)
--- NOTE | 2016-09-20 09:24 | XR ---
EXAMINATION TYPE: XR chest 2V DATE OF EXAM: 09/20/2016 8:58 AM COMPARISON: Chest x-ray August 04, 2016. HISTORY: Shortness of breath TECHNIQUE: Frontal and lateral views of the chest are obtained. FINDINGS: There is no focal air space opacity, pleural effusion, or pneumothorax seen. The cardiac silhouette size is stable and enlarged with perhaps mild central vascular congestion. The osseous s tructures are intact. IMPRESSION: Stable cardiomegaly with perhaps mild central vascular congestion, clinical correlation for CHF exacerbation.
[2016-09-20] MEDS ORDERED: ONDANSETRON 4 MG/2 ML VIAL IVP STA (10:27)
[2016-09-20] MEDS ORDERED: LISINOPRIL 10 MG TAB PO STA (10:50)
[2016-09-20] MEDS ORDERED: IPRATROPIUM-ALBUTEROL 3 ML NEB INHALATION STA (12:21)
[2016-09-20] MEDS: NITROGLYCERIN OINT 1 INCH/GM PACKET TOPICAL SCH ×2 (12:21→17:30)
[2016-09-20] MEDS ORDERED: LORazepam 2 MG/ML SYRINGE IV STA (12:58)
--- NOTE | 2016-09-20 14:32 | P.HPIM ---
History of Present Illness H&P Date: 09/20/16 Chief Complaint: Back pain Patient was seen and evaluated by me today in the emergency room. She was very sleepy but easily arousable. She was not willing to participate in the interview or provide any significant history. When I ask her why he came to the hospital she said to get help with her back pain. Most of the history was obtained by medical record review This is a 70-year-old female with past medical history noted below significant for medical noncompliance who was recently discharged from [facility] and stayed without her medication for approximately 10 days before she decided to call my office and request medication refills. Today, when I asked her whether or not she was taking her medication as prescribed patient was getting me vague answers. Initially she said that she did not take her blood pressure medicine for the past couple of days. On presentation to the emergency room her systolic blood pressure was greater than 250. 12 leads EKG showed no acute ischemic changes and initial troponin was elevated. Patient denies any chest pain. She was given 2 doses of IV hydralazine and one dose of IV labetalol and her systolic blood pressure showed some improvement. Cardiology consultation requested. Review of Systems Review of system: 14 points review of systems were obtained and were negative except to what were mentioned in the HPI. Past Medical History Past Medical History: Asthma, Coronary Artery Disease (CAD), Chest Pain / Angina , COPD, CVA/TIA, Diabetes Mellitus, Deep Vein Thrombosis (DVT), Hyperlipidemia, Hypertension, Myocardial Infarction ([place]), Osteoarthritis (OA), Pneumonia, Renal Disease, Vascular Disorder Additional Past Medical History / Comment(s): COPD/purulent bronchitis and UTI, IDDM type II, DVT bilateral lower legs, cardiac murmur, congenital single right kidney, R nephrolithiasis per 05/2016 U/S, difficulty sleeping, clausterphobia, CVA, neuropathy bilateral hands and feet, PVD, falls. 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 Past Psychological History: Anxiety, Depression Additional Psychological History / Comment(s): pt stated has some mild depression d/t medical problems but not hopeless. Denies any thoughts of harming self or others, no suicidal ideations. Pt recently was placed at [facility]. She has been back home for about 3 weeks. Pt resides in an apartment. She uses a cane or a wheelchair. She does not drive. She has a legal guardian, Angelica Dai. She states her LG has a loan review manager assigned to her and that this loan review manager is suppose to take her to appointments. She feels she needs assistance with housework. She states she has difficulty with washing up d/t being in a wheelchair and is too short for the sink. She cooks minimally. Smoking Status: Current every day smoker Past Alcohol Use History: None Reported Additional Past Alcohol Use History / Comment(s): Patient is a smoker of 2 packs per day for 55 years. She denies any medical marijuana, marijuana, street drug use. She denies any alcohol use or abuse. She has been on disability for long period of time. She is currently living alone. Past Drug Use History: None Reported - Past Family History Mother Family Medical History: Cancer, Diabetes Mellitus, Myocardial Infarction ([place]) Additional Family Medical History / Comment(s): from aortic anurysm Father Family Medical History: Renal Disease Medications and Allergies Home Medications Medication Instructions Recorded Confirmed Type Albuterol Inhaler [Ventolin Hfa 2 puff INHALATION RT-BID PRN 06/02/16 09/20/16 History Inhaler] Cilostazol [Pletal] 100 mg PO BID 06/02/16 09/20/16 History Clopidogrel [Plavix] 75 mg PO BID 06/02/16 09/20/16 History Ezetimibe [Zetia] 10 mg PO DAILY 06/02/16 09/20/16 History Sertraline HCl [Zoloft] 100 mg PO DAILY 06/02/16 09/20/16 History Famotidine [Pepcid] 20 mg PO BID@0800,1600 07/14/16 09/20/16 History Nitroglycerin Sl Tabs [Nitrostat] 0.4 mg SUBLINGUAL Q5M PRN 08/04/16 09/20/16 History Fluticasone Nasal [place] [Flonase 2 spr EA NOSTRIL DAILY PRN 09/20/16 09/20/16 History Nasal [place]] Gabapentin [Neurontin] 800 mg PO TID 09/20/16 09/20/16 History Hydrocodone/Acetaminophen [[place] 1 tab PO Q8HR PRN 09/20/16 09/20/16 History 10-325] Insulin NPH Hum/Reg Insulin Hm See Protocol SQ BID 09/20/16 09/20/16 History [NovoLIN 70-30 100 UNIT/ML VIAL] Lisinopril [Zestril] 10 mg PO DAILY 09/20/16 09/20/16 History Allergies Allergy/AdvReac Type Severity Reaction Status Date / Time Iodinated Contrast Media - Allergy Severe Anaphylaxis Verified 09/20/16 08:24 Oral and [Iodinated Contrast Media - IV Dye] nitrofurantoin Allergy Severe Anaphylaxis Verified 09/20/16 08:24 [From Macrobid] cephalexin monohydrate Allergy Swelling Verified 09/20/16 08:24 [From Keflex] ciprofloxacin Allergy Unknown Verified 09/20/16 08:24 Penicillins Allergy Swelling Verified 09/20/16 08:24 Sulfa (Sulfonamide Allergy Rash/Hives Verified 09/20/16 08:24 Antibiotics) Physical Exam Vitals: Vital Signs Temp Pulse Resp BP Pulse Ox 09/20/16 14:00 98.4 F 110 H 16 157/69 96 09/20/16 13:07 112 H 20 177/70 97 09/20/16 12:37 113 H 09/20/16 12:27 112 H 09/20/16 12:24 97.8 F 110 H 20 189/88 96 09/20/16 11:12 178/86 09/20/16 10:57 98.9 F 98 20 187/83 97 General: The patient is awake and alert, in no distress Eye: there is normal conjunctiva bilaterally. Neck: The neck is supple, there is no JVD. Cardiovascular: Normal S1-S2, no S3-S4, no murmurs. Respiratory: Lungs clear to auscultation bilaterally Gastrointestinal: Abdomen is soft, nontender Musculoskeletal: There is no pedal edema. Neurological:. Speech is normal. Skin: Skin is warm and dry Results CBC & Chem 7: 09/20/16 08:00 09/20/16 08:00 Thrombosis Risk Factor Assmnt - Choose All That Apply Any of the Below Risk Factors Present?: Yes Each Factor Represents 1 point: Abnormal pulmonary function (COPD), Obesity ( BMI >25) Other Risk Factors: Yes Each Risk Factor Represents 2 Points: Age 61-74 years Each Risk Factor Represents 3 Points: History of DVT/PE Other congenital or acquired thrombophilia - If yes, enter type in comment: No Thrombosis Risk Factor Assessment Total Risk Factor Score: 7 Thrombosis Risk Factor Assessment Level: High Risk Assessment and Plan Plan: 1. Hypertensive emergency 2. Essential hypertension with uncontrolled blood pressure secondary to medication noncompliance 3. Type 2 diabetes mellitus insulin-dependent 4. History of CVA with chronic right-sided facial droop 5. Coronary artery disease with history of myocardial infarction 6. Stage IIIB chronic kidney disease 7. Non-thrombotic troponin leak most likely secondary to uncontrolled systolic blood pressure Today, I reviewed her medication list and lab work results. Resume home blood pressure medication. Goal systolic blood pressure in the 150s to 160s for the next 24 hours. Plan to admit to telemetry monitoring. Awaiting cardiology evaluation. Patient was counseled extensively about medication compliance. I would try to get hold of her legal guardian. She was placed in [facility] previously to help her get her medication as prescribed but unfortunately she always wanted to be discharged.
[2016-09-20] MEDS ORDERED: ACETAMINOPHEN TAB 325 MG TAB PO PRN (14:36)
[2016-09-20] MEDS ORDERED: FAMOTIDINE 20 MG TAB PO SCH (16:00)
[2016-09-20 16:03] LABS: Creatine Kinase MB 5.1 ng/mL (0.0-2.4); Troponin I 0.16 ng/mL (0.000-0.034)
[2016-09-20] MEDS: GABAPENTIN 100 MG CAP PO SCH ×2 (16:30→22:01)
[2016-09-20 17:53] LABS: Glucose,Whole Blood 203 mg/dL (75-99)
[2016-09-20 20:39] LABS: Creatine Kinase MB 20.6 ng/mL (0.0-2.4); Troponin I 6.86 ng/mL (0.000-0.034)
[2016-09-20 20:44] LABS: Glucose,Whole Blood 130 mg/dL (75-99)
[2016-09-20] MEDS: HEPARIN SODIUM,PORCINE 5,000 UNIT/ML 1 ML VIAL SQ SCH (22:01)
[2016-09-20] MEDS: METOPROLOL TARTRATE 50 MG TAB PO SCH (22:01)
[2016-09-20] MEDS: CILOSTAZOL 100 MG TAB PO SCH (22:01)
[2016-09-20 23:53] LABS: Glucose,Whole Blood 133 mg/dL (75-99)
[2016-09-21] MEDS: NITROGLYCERIN OINT 1 INCH/GM PACKET TOPICAL SCH ×3 (00:04→10:54)
[2016-09-21 05:46] LABS: Glucose,Whole Blood 84 mg/dL (75-99)
[2016-09-21] MEDS: HYDROcodone/APAP 10-325MG 1 EACH TAB PO PRN (05:52)
[2016-09-21 06:53] LABS: Basophils % (A) 0 %; CH 29.6; CHCM 31.7; Eosinophils # (A) 0.1 k/uL (0-0.7); Eosinophils % (A) 1 %; HCT 34.5 % (34.0-46.0); HDW 2.62; HGB 11.1 gm/dL (11.4-16.0); Hypochromasia Slight; Luc # (Auto) 0.13; Luc % (Auto) 1; Lymphocytes # (A) 1.9 k/uL (1.0-4.8); Lymphocytes % (A) 16 %; MCV 93.7 fL (80.0-100.0); Monocytes # (A) 0.6 k/uL (0-1.0); Monocytes % (A) 5 %; Neutrophils # (A) 8.7 k/uL (1.3-7.7); Neutrophils % (A) 76 %; RBC 3.69 m/uL (3.80-5.40); RDW 14.1 % (11.5-15.5); WBC 11.5 k/uL (3.8-10.6); WBC (Perox) 12.03
[2016-09-21 07:19] LABS: Calcium 9.5 mg/dL (8.4-10.2); Magnesium 1.7 mg/dL (1.6-2.3); Potassium 5.6 mmol/L (3.5-5.1)
[2016-09-21] MEDS ORDERED: LISINOPRIL 10 MG TAB PO SCH (09:00)
--- NOTE | 2016-09-21 09:55 | P.CRDCN ---
History of Present Illness Consult date: 09/21/16 Requesting physician: Mallory Hernandez Consult reason: chest pain Chief complaint: Chest pain History of present illness: This is a 70-year-old female with known history of diabetes, COPD, hypertension, hyperlipidemia, prior CVA, COPD, peripheral vascular disease, prior myocardial infarction, most recent cardiac catheterization revealed disease in the distal RCA, intermediate disease in the proximal LAD and first OM. Patient was discharged home from the hospital here to [facility], from [facility] discharged home. Patient states that for the past 10 days or so she has not been taking any medications at home. She presents to the hospital on this occasion with symptoms of left arm pain and associated chest pressure and heaviness which she's been experiencing off and on. She also complains of a persistent discomfort in her back which she chronically has been known to have. Patient also complains of some abdominal discomfort and urinary frequency. She has been known to be noncompliant in the past with taking medications. Blood pressure on arrival here to 51/113, heart rate in the 80s, 95% on room air. White blood cell count 11.5, hemoglobin 11.1, platelet count 353. Potassium 5.6, BUN 32, creatinine 1.4. Initial troponin on admission here 0.18, 0.16, 6.8. Cholesterol 236, triglycerides 319, LDL 135, HDL 37. UA negative. Magnesium 1.7. EKG on admission here showed a normal sinus rhythm with a right bundle branch block pattern and ST-T wave changes noted in the inferior leads.On review of prior EKGs, patient is known to have a right bundle branch block pattern. Inferior ST-T wave changes appear to be new. Patient is currently on aspirin, Plavix 75 mg daily, Zetia, Imdur 30 mg daily, lisinopril 10 mg daily, metoprolol tartrate 50 mg by mouth twice a day, Nitropaste, and has been given IV hydralazine for blood pressure here. Blood pressure this morning 116/50 with a heart rate in the 70s. At the time of my examination this morning, patient denies current left arm discomfort, had mild chest pressure earlier this morning denies any present. Complaining of intermittent abdominal discomfort, abdomen is soft, bowel sounds are heard. Past Medical History Past Medical History: Asthma, Coronary Artery Disease (CAD), Chest Pain / Angina , COPD, CVA/TIA, Diabetes Mellitus, Deep Vein Thrombosis (DVT), Hyperlipidemia, Hypertension, Myocardial Infarction (MA), Osteoarthritis (OA), Pneumonia, Renal Disease, Vascular Disorder Additional Past Medical History / Comment(s): COPD/purulent bronchitis and UTI, IDDM type II, DVT bilateral lower legs, cardiac murmur, congenital single right kidney, R nephrolithiasis per 05/2016 U/S, difficulty sleeping, clausterphobia, CVA, neuropathy bilateral hands and feet, PVD, falls. 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 Past Psychological History: Anxiety, Depression Additional Psychological History / Comment(s): pt stated has some mild depression d/t medical problems but not hopeless. Denies any thoughts of harming self or others, no suicidal ideations. Pt recently was placed at [facility]. She has been back home for about 3 weeks. Pt resides in an apartment. She uses a cane or a wheelchair. She does not drive. She has a legal guardian, Angelica Dai. She states her LG has a manager dialysis assigned to her and that this manager dialysis is suppose to take her to appointments. She feels she needs assistance with housework. She states she has difficulty with washing up d/t being in a wheelchair and is too short for the sink. She cooks minimally. Smoking Status: Current every day smoker Past Alcohol Use History: None Reported Additional Past Alcohol Use History / Comment(s): Patient is a smoker of 2 packs per day for 55 years. She denies any medical marijuana, marijuana, street drug use. She denies any alcohol use or abuse. She has been on disability for long period of time. She is currently living alone. Past Drug Use History: None Reported - Past Family History Mother Family Medical History: Cancer, Diabetes Mellitus, Myocardial Infarction (MA) Additional Family Medical History / Comment(s): from aortic anurysm Father Family Medical History: Renal Disease Medications and Allergies Home Medications Medication Instructions Recorded Confirmed Type Albuterol Inhaler [Ventolin Hfa 2 puff INHALATION RT-BID PRN 06/02/16 09/20/16 History Inhaler] Cilostazol [Pletal] 100 mg PO BID 06/02/16 09/20/16 History Clopidogrel [Plavix] 75 mg PO BID 06/02/16 09/20/16 History Ezetimibe [Zetia] 10 mg PO DAILY 06/02/16 09/20/16 History Sertraline HCl [Zoloft] 100 mg PO DAILY 06/02/16 09/20/16 History Famotidine [Pepcid] 20 mg PO BID@0800,1600 07/14/16 09/20/16 History Nitroglycerin Sl Tabs [Nitrostat] 0.4 mg SUBLINGUAL Q5M PRN 08/04/16 09/20/16 History Fluticasone Nasal Mclean [Flonase 2 spr EA NOSTRIL DAILY PRN 09/20/16 09/20/16 History Nasal Mclean] Gabapentin [Neurontin] 800 mg PO TID 09/20/16 09/20/16 History Hydrocodone/Acetaminophen [Worley 1 tab PO Q8HR PRN 09/20/16 09/20/16 History 10-325] Insulin NPH Hum/Reg Insulin Hm See Protocol SQ BID 09/20/16 09/20/16 History [NovoLIN 70-30 100 UNIT/ML VIAL] Lisinopril [Zestril] 10 mg PO DAILY 09/20/16 09/20/16 History Allergies Allergy/AdvReac Type Severity Reaction Status Date / Time Iodinated Contrast Media - Allergy Severe Anaphylaxis Verified 09/20/16 08:24 Oral and [Iodinated Contrast Media - IV Dye] nitrofurantoin Allergy Severe Anaphylaxis Verified 09/20/16 08:24 [From Macrobid] cephalexin monohydrate Allergy Swelling Verified 09/20/16 08:24 [From Keflex] ciprofloxacin Allergy Unknown Verified 09/20/16 08:24 Penicillins Allergy Swelling Verified 09/20/16 08:24 Sulfa (Sulfonamide Allergy Rash/Hives Verified 09/20/16 08:24 Antibiotics) Physical Exam Vitals: Vital Signs Temp Pulse Pulse Resp BP BP Pulse Ox 09/21/16 07:38 96.3 F L 75 18 116/56 09/21/16 03:20 97.9 F 76 18 116/53 97 09/21/16 00:00 98.9 F 92 18 143/66 97 09/20/16 20:00 99.8 F H 88 18 133/68 97 09/20/16 15:40 99 F 108 H 18 162/78 97 09/20/16 15:28 97.8 F 09/20/16 15:00 99 18 134/63 97 09/20/16 14:00 98.4 F 110 H 16 157/69 96 09/20/16 13:07 112 H 20 177/70 97 09/20/16 12:37 113 H 09/20/16 12:27 112 H 09/20/16 12:24 97.8 F 110 H 20 189/88 96 09/20/16 11:12 178/86 09/20/16 10:57 98.9 F 98 20 187/83 97 Intake and Output 09/20/16 09/21/16 09/21/16 22:59 06:59 14:59 Other: # Voids 1 Weight 63.5 kg PHYSICAL EXAMINATION: HEENT: Head is atraumatic, normocephalic. Pupils equal, round. Neck is supple. There is no elevated jugular venous pressure. HEART EXAMINATION: Heart S1, S2 normal. No murmur or gallop heard. CHEST EXAMINATION: Are clear with mild diminished air entry to posterior bases. ABDOMEN: Soft, nontender. Bowel sounds are heard. No organomegaly noted. EXTREMITIES: 1+ peripheral pulses with no evidence of peripheral edema and no calf tenderness noted. NEUROLOGIC patient is awake, alert and oriented -3. . Results 09/21/16 05:31 09/21/16 05:31 Cardiac Enzymes 09/20/16 09/20/16 Range/Units 15:02 19:37 CK-MB (CK-2) 5.1 H* 20.6 H* (0.0-2.4) ng/mL Troponin I 0.160 H* 6.860 H* (0.000-0.034) ng/mL Lipids 09/21/16 Range/Units 05:31 Triglycerides 319 H (<150) mg/dL Cholesterol 236 H (<200) mg/dL HDL Cholesterol 37 L (40-60) mg/dL CBC 09/21/16 Range/Units 05:31 WBC 11.5 H (3.8-10.6) k/uL RBC 3.69 L (3.80-5.40) m/uL Hgb 11.1 L (11.4-16.0) gm/dL Hct 34.5 (34.0-46.0) % Plt Count 353 (150-450) k/uL Comprehensive Metabolic Panel 09/21/16 Range/Units 05:31 Sodium 140 (137-145) mmol/L Potassium 5.6 H (3.5-5.1) mmol/L Chloride 108 H (98-107) mmol/L Carbon Dioxide 24 (22-30) mmol/L BUN 32 H (7-17) mg/dL Creatinine 1.40 H (0.52-1.04) mg/dL Glucose 72 L (74-99) mg/dL Calcium 9.5 (8.4-10.2) mg/dL Current Medications Generic Name Dose Route Start Last Admin Trade Name Freq PRN Reason Stop Dose Admin Acetaminophen 650 mg 09/20/16 14:36 Tylenol Tab PO Q6HR PRN Fever and/ or Mild Pain Hydrocodone Bitart/Acetaminophen 1 each 09/20/16 14:32 09/21/16 05:52 Worley 10 PO 1 each Q6H PRN Administration Moderate Pain Aspirin 325 mg 09/21/16 09:00 Aspirin PO DAILY [facility] Cilostazol 100 mg 09/20/16 21:00 09/20/16 22:01 Pletal PO 100 mg BID [facility] Administration Clopidogrel Bisulfate 75 mg 09/21/16 09:00 Plavix PO DAILY [facility] Ezetimibe 10 mg 09/21/16 09:00 Zetia PO DAILY [facility] Famotidine 20 mg 09/20/16 16:00 09/20/16 16:30 Pepcid PO Not Given BID@0800,1600 [facility] Gabapentin 100 mg 09/20/16 16:00 09/20/16 22:01 Neurontin PO 100 mg TID [facility] Administration Heparin Sodium (Porcine) 5,000 unit 09/20/16 21:00 09/20/16 22:01 Heparin SQ 5,000 unit Q12HR [facility] Administration Insulin Human Isoph/Insulin Regular 15 unit 09/20/16 21:00 09/21/16 00:00 Humulin 70/30 Vial SQ 15 unit BID [facility] Administration Isosorbide Mononitrate 30 mg 09/21/16 09:00 Imdur PO DAILY [facility] Lisinopril 10 mg 09/21/16 09:00 Zestril PO DAILY [facility] Metoprolol Tartrate 50 mg 09/20/16 21:00 09/20/16 22:01 Lopressor PO 50 mg BID [facility] Administration Nitroglycerin 1 inch 09/20/16 12:00 09/21/16 05:53 Nitro-Bid Oint TOPICAL 1 inch Q6HR [facility] Administration Nitroglycerin 0.4 mg 09/20/16 10:22 Nitrostat SUBLINGUAL Q5M PRN Chest Pain Ondansetron HCl 4 mg 09/20/16 14:36 Zofran IVP Q6HR PRN Nausea And Vomiting Sertraline HCl 100 mg 09/21/16 09:00 Zoloft PO DAILY [facility] Intake and Output 09/20/16 09/21/16 09/21/16 22:59 06:59 14:59 Other: # Voids 1 Weight 63.5 kg 09/21/16 05:31 09/21/16 05:31 EKG Interpretations (text) EKG shows normal sinus rhythm with a right bundle branch block pattern, inferior ST-T wave changes. Assessment and Plan Plan: Assessment and plan #1 symptoms of midsternal chest pressure and associated left arm discomfort, suggestive of acute coronary syndrome. Troponins 0.18, 0.16, 6.8. EKG shows normal sinus rhythm with a right bundle branch block pattern and inferior ST-T wave changes. #2 accelerated hypertension #3 history of hypertension #4 diabetes #5 hyperlipidemia #7 acute on chronic renal disease #8 prior DVT #9 prior CVA #10 documented CAD, most recent cardiac catheterization was performed in May of this year which revealed severe disease involving the distal RCA with a long tubular lesion, intermediate disease involving the proximal LAD. An intermediate disease involving the first OM branch of the circumflex as well. Maximal medical therapy was advised at that time and patient was advised to have outpatient stress testing performed which she did not have done. #11 history of noncompliance. Plan Patient did have a recent echocardiogram with Doppler study performed on her last admission here in June, but we will repeat an echo on this admission in view of the abnormal enzymes. Echo performed at that time revealed an ejection fraction of 35-40% with basal mid and apical anterior septal hypokinesia. Into the current medications the patient is on at this time. Patient may need to undergo repeat cardiac catheterization the risks and the benefits again were explained to the patient in detail further recommendations to follow. DNP note has been reviewed, I agree with a documented findings and plan of care. Patient was seen and examined.
[2016-09-21] MEDS ORDERED: HEPARIN SODIUM,PORCINE 5,000 UNIT/ML 1 ML VIAL IV PRN ×2 (09:56→16:17)
[2016-09-21] MEDS: NITROGLYCERIN SL TABS 0.4 MG TAB SUBLINGUAL PRN ×2 (10:00→10:07)
[2016-09-21] MEDS: CLOPIDOGREL 75 MG TAB PO SCH (10:10)
[2016-09-21] MEDS: FAMOTIDINE 20 MG TAB PO SCH (10:10)
[2016-09-21] MEDS ORDERED: HEPARIN SODIUM,PORCINE 5,000 UNIT/ML 1 ML VIAL IV ONE (10:15)
[2016-09-21] MEDS ORDERED: diphenhydrAMINE 25 MG CAP PO STA (10:46)
[2016-09-21] MEDS ORDERED: methylPREDNISolone SOD SUCCI 125 MG/2 ML VIAL IV STA (10:49)
[2016-09-21] MEDS ORDERED: NITROGLYCERIN SL TABS 0.4 MG TAB SUBLINGUAL PRN ×2 (10:52→15:14)
[2016-09-21] MEDS ORDERED: ALPRAZolam 0.25 MG TAB PO PRN ×2 (10:52→15:14)
[2016-09-21] MEDS ORDERED: ATORVASTATIN 80 MG TAB PO STA (10:52)
[2016-09-21] MEDS ORDERED: SODIUM CHLORIDE 0.9% 1,000 ML in EMPTY BAG 1 BAG IV ONE ×2 (10:52→15:14)
[2016-09-21] MEDS ORDERED: ASPIRIN 325 MG TAB PO STA (10:52)
[2016-09-21] MEDS: ASPIRIN 325 MG TAB PO SCH (10:53)
[2016-09-21] MEDS: METOPROLOL TARTRATE 50 MG TAB PO SCH ×2 (10:53→21:05)
[2016-09-21] MEDS: GABAPENTIN 100 MG CAP PO SCH ×3 (10:53→21:05)
[2016-09-21] MEDS: SERTRALINE 100 MG TAB PO SCH (10:54)
[2016-09-21] MEDS: ISOSORBIDE MONONITRATE ER 30 MG TAB.ER.24H PO SCH (10:55)
[2016-09-21] MEDS: EZETIMIBE 10 MG TAB PO SCH (10:55)
[2016-09-21] MEDS ORDERED: HEPARIN SODIUM,PORCINE/D5W PMX 25,000 UNIT in DEXTROSE/WATER 1 500ML.BAG IV SCH ×2 (11:00→20:00)
[2016-09-21] MEDS ORDERED: methylPREDNISolone SOD SUCCI 125 MG/2 ML VIAL IVP ONE ×2 (11:15→13:29)
[2016-09-21] MEDS: diphenhydrAMINE 25 MG CAP PO SCH ×2 (11:16→21:05)
[2016-09-21] MEDS: predniSONE 20 MG TAB PO SCH ×2 (11:24→21:05)
[2016-09-21] MEDS: HYDROmorphone 1 MG/ML 1 ML SYRINGE IVP PRN ×2 (11:27→20:59)
[2016-09-21 11:55] LABS: Glucose,Whole Blood 146 mg/dL (75-99)
--- NOTE | 2016-09-21 11:57 | P.PN ---
Subjective Patient is still complaining of discomfort chest today. Blood pressure better controlled. Objective - Vital Signs Vital signs: Vital Signs Temp 96.3 F L 09/21/16 07:38 Pulse 82 09/21/16 10:51 Resp 16 09/21/16 10:51 BP 126/59 09/21/16 10:51 Pulse Ox 95 09/21/16 10:51 Intake & Output 09/20/16 09/21/16 09/21/16 18:59 06:59 18:59 Weight 63.5 kg Other: # Voids 1 - Exam General: The patient is awake and alert, in no distress Eye: there is normal conjunctiva bilaterally. Neck: The neck is supple, there is no JVD. Cardiovascular: Normal S1-S2, no S3-S4, no murmurs. Respiratory: Lungs clear to auscultation bilaterally Gastrointestinal: Abdomen is soft, nontender Musculoskeletal: There is no pedal edema. Neurological:. Speech is normal. Skin: Skin is warm and dry - Labs CBC & Chem 7: 09/21/16 05:31 09/21/16 05:31 Labs: Abnormal Lab Results - Last 24 Hours (Table) 09/20/16 09/20/16 09/20/16 Range/Units 15:02 17:50 19:37 WBC (3.8-10.6) k/uL RBC (3.80-5.40) m/uL Hgb (11.4-16.0) gm/dL Neutrophils # (1.3-7.7) k/uL Potassium (3.5-5.1) mmol/L Chloride (98-107) mmol/L BUN (7-17) mg/dL Creatinine (0.52-1.04) mg/dL Glucose (74-99) mg/dL POC Glucose (mg/dL) 203 H (75-99) mg/dL Total Creatine Kinase 235 H (30-135) U/L CK-MB (CK-2) 5.1 H* 20.6 H* (0.0-2.4) ng/mL Troponin I 0.160 H* 6.860 H* (0.000-0.034) ng/mL Triglycerides (<150) mg/dL Cholesterol (<200) mg/dL LDL Cholesterol, Calc (0-99) mg/dL HDL Cholesterol (40-60) mg/dL 09/20/16 09/20/16 09/21/16 Range/Units 20:42 23:52 05:31 WBC (3.8-10.6) k/uL RBC (3.80-5.40) m/uL Hgb (11.4-16.0) gm/dL Neutrophils # (1.3-7.7) k/uL Potassium 5.6 H (3.5-5.1) mmol/L Chloride 108 H (98-107) mmol/L BUN 32 H (7-17) mg/dL Creatinine 1.40 H (0.52-1.04) mg/dL Glucose 72 L (74-99) mg/dL POC Glucose (mg/dL) 130 H 133 H (75-99) mg/dL Total Creatine Kinase (30-135) U/L CK-MB (CK-2) (0.0-2.4) ng/mL Troponin I (0.000-0.034) ng/mL Triglycerides 319 H (<150) mg/dL Cholesterol 236 H (<200) mg/dL LDL Cholesterol, Calc 135 H (0-99) mg/dL HDL Cholesterol 37 L (40-60) mg/dL 09/21/16 Range/Units 05:31 WBC 11.5 H (3.8-10.6) k/uL RBC 3.69 L (3.80-5.40) m/uL Hgb 11.1 L (11.4-16.0) gm/dL Neutrophils # 8.7 H (1.3-7.7) k/uL Potassium (3.5-5.1) mmol/L Chloride (98-107) mmol/L BUN (7-17) mg/dL Creatinine (0.52-1.04) mg/dL Glucose (74-99) mg/dL POC Glucose (mg/dL) (75-99) mg/dL Total Creatine Kinase (30-135) U/L CK-MB (CK-2) (0.0-2.4) ng/mL Troponin I (0.000-0.034) ng/mL Triglycerides (<150) mg/dL Cholesterol (<200) mg/dL LDL Cholesterol, Calc (0-99) mg/dL HDL Cholesterol (40-60) mg/dL Assessment and Plan Plan: 1. Non-ST elevation [place]: Seen and evaluated by cardiology. Plan for left heart catheterization. 2. Hypertensive emergency 3. Type 2 diabetes mellitus insulin-dependent 4. History of CVA with chronic right-sided facial droop 5. Coronary artery disease with history of myocardial infarction 6. Stage IIIB chronic kidney disease 7. Non-thrombotic troponin leak most likely secondary to uncontrolled systolic blood pressure 8. Acute kidney injury: IV fluid hydration. Discontinue lisinopril and monitor Today, I reviewed her medication list and lab work results. Continue telemetry monitoring. Patient was counseled extensively about medication compliance. Guardian was contacted by the social media content manager and updated about her condition. She was placed in ECF previously to help her get her medication as prescribed but unfortunately she always wanted to be discharged.
[2016-09-21] MEDS: INSULIN NPH/REG INSULIN 70/30 300 UNIT/3 ML VIAL SQ SCH ×3 (12:44→21:11)
[2016-09-21] MEDS ORDERED: SODIUM CHLORIDE 0.9% 500 ML IV ONE (13:18)
[2016-09-21] MEDS ORDERED: LIDOCAINE 2% INJ 20 MG/ML SQ ONE (13:27)
[2016-09-21] MEDS ORDERED: diphenhydrAMINE 50 MG/ML 1 ML VIAL IVP ONE (13:29)
[2016-09-21] MEDS ORDERED: MIDAZOLAM 2 MG/2 ML VIAL IVP ONE (13:30)
[2016-09-21] MEDS ORDERED: IOHEXOL 350 MG/ML 100 ML BOTTLE INJ ONE (13:50)
[2016-09-21] MEDS ORDERED: RX INFO: IV CONTRAST WAS GIVEN 1 EACH MISC MISCELLANE PRN (13:58)
[2016-09-21] MEDS ORDERED: SODIUM CHLORIDE 0.9% 1,000 ML IV SCH (14:00)
[2016-09-21 14:30] LABS: Glucose,Whole Blood 183 mg/dL (75-99)
[2016-09-21] MEDS ORDERED: ALPRAZolam 0.5 MG TAB PO PRN (15:14)
[2016-09-21] MEDS: HEPARIN SODIUM,PORCINE 5,000 UNIT/ML 1 ML VIAL SQ SCH (15:27)
[2016-09-21] MEDS: CILOSTAZOL 100 MG TAB PO SCH ×2 (15:29→21:04)
[2016-09-21 16:42] LABS: Glucose,Whole Blood 250 mg/dL (75-99)
[2016-09-21] MEDS: INSULIN LISPRO (humaLOG) 300 UNIT/3 ML VIAL SQ SCH ×2 (17:50→21:12)
[2016-09-21 19:12] LABS: Hemoglobin A1C 7.4 % (4.2-6.1)
[2016-09-21 21:12] LABS: Glucose,Whole Blood 442 mg/dL (75-99)
--- NOTE | 2016-09-21 23:38 | CC ---
DATE OF SERVICE: 09/21/2016 PERFORMING PHYSICIAN: Jagdeep Urbano M.D., glaze carrier. PROCEDURE PERFORMED: Selective right and left coronary angiogram. INDICATION: This is a pleasant 70-year-old female patient who is known to have coronary artery disease, peripheral arterial disease, hypertension and dyslipidemia as well as diabetes. She presented to the hospital with chest discomfort and was ruled in for acute [id number] myocardial infarction. The decision was made for heart catheterization. APPROACH: Right common femoral artery. COMPLICATIONS: None. LEVEL OF SEDATION: Moderate with sedation length of about 20 minutes. PROCEDURE DESCRIPTION: After obtaining informed consent, the patient was brought to the cardiac slab worker. The right common femoral artery was cannulated using micropuncture technique. The micropuncture wire passed easily. Then I placed a 6 Mongolian sheath in the right common femoral artery. Subsequently I did selective right and left coronary angiogram using JR4 and JL4 catheters. After that the procedure was completed without any complication. SELECTIVE CORONARY ANGIOGRAM: 1. The right coronary artery is a large-caliber vessel and it is a dominant vessel. The RCA seems to be diffusely diseased up to about 70% to 80% in the distal portion just before the bifurcation into PDA and PLV branches. 2. The left main is a short left main but is angiographically normal. It bifurcates into the left circumflex and left anterior descending artery. 3. The left circumflex is a large-caliber vessel. It is a dominant vessel. The proximal circumflex appeared to have a lesion in the range of 50%. The mid circumflex appeared to have mild disease only and gives rise to the first OM branch, which appeared to be a large-caliber vessel with mild disease only. The mid circumflex after that seems to have mild disease only. The circumflex distally appeared to have mild disease and bifurcates into PDA and PLV branches; both are angiographically normal. 4. Left anterior descending artery. The very proximal LAD appeared to have eccentric lesion in the range of 40% to 50%. After that the LAD has eccentric lesion that seems to be in the range of 70%. This is by the bifurcation of the first diagonal branch, which is a large-caliber vessel and seems to have moderate disease in the proximal portion. The mid LAD and distal LAD appeared to have mild disease only. CONCLUSION: 1. Diffusely diseased right coronary artery; seems to be unchanged compared to before. 2. Mild disease involving the left circumflex coronary system. 3. Severe eccentric lesion involving the very proximal LAD. POST-PROCEDURE MANAGEMENT: The patient will be scheduled to undergo an atherectomy and balloon angioplasty and stenting of the LAD.
[2016-09-22] MEDS: HYDROcodone/APAP 10-325MG 1 EACH TAB PO PRN ×3 (00:51→23:42)
[2016-09-22] MEDS: ALPRAZolam 0.5 MG TAB PO PRN ×3 (00:52→23:43)
[2016-09-22 04:26] LABS: Basophils % (A) 0 %; CH 29.9; CHCM 32.6; Eosinophils % (A) 0 %; HDW 2.82; HGB 10.4 gm/dL (11.4-16.0); Luc # (Auto) 0.03; Luc % (Auto) 0; Lymphocytes # (A) 0.9 k/uL (1.0-4.8); Lymphocytes % (A) 9 %; MCHC 32.6 g/dL (31.0-37.0); Mean Platelet Volume 6.4; Monocytes # (A) 0.2 k/uL (0-1.0); Monocytes % (A) 2 %; Neutrophils # (A) 8.7 k/uL (1.3-7.7); Neutrophils % (A) 89 %; RBC 3.48 m/uL (3.80-5.40); RDW 13.8 % (11.5-15.5); WBC 9.9 k/uL (3.8-10.6); WBC (Perox) 10.06
[2016-09-22 04:37] LABS: Calcium 8.9 mg/dL (8.4-10.2); Magnesium 1.7 mg/dL (1.6-2.3)
[2016-09-22 04:49] LABS: Potassium 6.6 mmol/L (3.5-5.1)
[2016-09-22] MEDS ORDERED: SODIUM POLYSTYRENE SULFONATE 15 GM/60 ML BOTTLE PO STA (05:04)
[2016-09-22] MEDS: HYDROmorphone 1 MG/ML 1 ML SYRINGE IVP PRN (05:50)
[2016-09-22 06:02] LABS: Glucose,Whole Blood 339 mg/dL (75-99)
[2016-09-22] MEDS: INSULIN LISPRO (humaLOG) 300 UNIT/3 ML VIAL SQ SCH ×4 (06:44→21:31)
[2016-09-22] MEDS: GABAPENTIN 100 MG CAP PO SCH ×3 (08:43→21:31)
[2016-09-22] MEDS: predniSONE 20 MG TAB PO SCH ×2 (08:43→21:31)
[2016-09-22] MEDS: METOPROLOL TARTRATE 50 MG TAB PO SCH ×2 (08:43→21:31)
[2016-09-22] MEDS: EZETIMIBE 10 MG TAB PO SCH (08:43)
[2016-09-22] MEDS: SERTRALINE 100 MG TAB PO SCH (08:43)
[2016-09-22] MEDS: CLOPIDOGREL 75 MG TAB PO SCH (08:43)
[2016-09-22] MEDS: CILOSTAZOL 100 MG TAB PO SCH ×2 (08:43→21:31)
[2016-09-22] MEDS: ISOSORBIDE MONONITRATE ER 30 MG TAB.ER.24H PO SCH (08:43)
[2016-09-22] MEDS: FAMOTIDINE 20 MG TAB PO SCH (08:43)
[2016-09-22] MEDS: ASPIRIN 325 MG TAB PO SCH (08:43)
[2016-09-22] MEDS: INSULIN NPH/REG INSULIN 70/30 300 UNIT/3 ML VIAL SQ SCH ×2 (08:44→21:31)
[2016-09-22] MEDS: NITROGLYCERIN SL TABS 0.4 MG TAB SUBLINGUAL PRN ×2 (08:50→09:02)
[2016-09-22] MEDS: diphenhydrAMINE 25 MG CAP PO SCH ×2 (10:07→21:31)
[2016-09-22 11:35] LABS: Glucose,Whole Blood 348 mg/dL (75-99)
--- NOTE | 2016-09-22 11:40 | P.PN ---
Subjective Patient is doing well today. No events overnight. No active chest pain. Kidney function continued to worsen Objective - Vital Signs Vital signs: Vital Signs Temp 96.5 F L 09/22/16 07:31 Pulse 95 09/22/16 07:31 Resp 18 09/22/16 07:31 BP 108/54 09/22/16 07:31 Pulse Ox 94 L 09/22/16 07:31 Intake & Output 09/21/16 09/22/16 09/22/16 18:59 06:59 18:59 Intake Total 200 1488.37 298 Balance 200 1488.37 298 Weight 63.5 kg 65.3 kg Intake: IV 200 Sodium Chloride 0.9% 1, 100 000 ml In Empty Bag 1 bag @ 1 ML/KG/HR 63.5 mls/hr IV .[id number] [facility] Rx#: [id number] Intake, IV Titration 488.37 Amount Heparin Sodium,Porcine/ 152.48 D5w Pmx 25,000 unit In Dextrose/Water 1 500ml. bag @ 12 UNITS/KG/HR 15. 24 mls/hr IV .Q24H [facility] Rx #:[id number] Heparin Sodium,Porcine/ 135.89 D5w Pmx 25,000 unit In Dextrose/Water 1 500ml. bag @ 12 UNITS/KG/HR 15. 24 mls/hr IV .Q24H [facility] Rx #:[id number] Sodium Chloride 0.9% 1, 200 000 ml @ 100 mls/hr IV . Q10H [facility] Rx#:[id number] Oral 1000 298 - Exam General: The patient is awake and alert, in no distress Eye: there is normal conjunctiva bilaterally. Neck: The neck is supple, there is no JVD. Cardiovascular: Normal S1-S2, no S3-S4, no murmurs. Respiratory: Lungs clear to auscultation bilaterally Gastrointestinal: Abdomen is soft, nontender Musculoskeletal: There is no pedal edema. Neurological:. Speech is normal. Skin: Skin is warm and dry - Labs CBC & Chem 7: 09/22/16 03:49 09/22/16 09:31 Labs: Abnormal Lab Results - Last 24 Hours (Table) 09/21/16 09/21/16 09/21/16 Range/Units 09:56 11:47 14:27 RBC (3.80-5.40) m/uL Hgb (11.4-16.0) gm/dL Hct (34.0-46.0) % Neutrophils # (1.3-7.7) k/uL Lymphocytes # (1.0-4.8) k/uL Sodium (137-145) mmol/L Potassium (3.5-5.1) mmol/L Carbon Dioxide (22-30) mmol/L BUN (7-17) mg/dL Creatinine (0.52-1.04) mg/dL Glucose (74-99) mg/dL POC Glucose (mg/dL) 146 H 183 H (75-99) mg/dL Hemoglobin A1c 7.4 H (4.2-6.1) % 09/21/16 09/21/16 09/22/16 Range/Units 16:38 21:11 03:49 RBC 3.48 L (3.80-5.40) m/uL Hgb 10.4 L (11.4-16.0) gm/dL Hct 32.0 L (34.0-46.0) % Neutrophils # 8.7 H (1.3-7.7) k/uL Lymphocytes # 0.9 L (1.0-4.8) k/uL Sodium (137-145) mmol/L Potassium (3.5-5.1) mmol/L Carbon Dioxide (22-30) mmol/L BUN (7-17) mg/dL Creatinine (0.52-1.04) mg/dL Glucose (74-99) mg/dL POC Glucose (mg/dL) 250 H 442 H (75-99) mg/dL Hemoglobin A1c (4.2-6.1) % 09/22/16 09/22/16 09/22/16 Range/Units 03:49 06:01 11:32 RBC (3.80-5.40) m/uL Hgb (11.4-16.0) gm/dL Hct (34.0-46.0) % Neutrophils # (1.3-7.7) k/uL Lymphocytes # (1.0-4.8) k/uL Sodium 132 L (137-145) mmol/L Potassium 6.6 H* (3.5-5.1) mmol/L Carbon Dioxide 20 L (22-30) mmol/L BUN 41 H (7-17) mg/dL Creatinine 1.60 H (0.52-1.04) mg/dL Glucose 346 H (74-99) mg/dL POC Glucose (mg/dL) 339 H 348 H (75-99) mg/dL Hemoglobin A1c (4.2-6.1) % Assessment and Plan Plan: 1. Non-ST elevation [place]: Seen and evaluated by cardiology. Patient underwent left heart catheterization showing unchanged diffusely diseased right coronary artery, severe stenosis noted the proximal LAD. Plan for balloon angioplasty and stenting on Monday 2. Hypertensive emergency on presentation 3. Type 2 diabetes mellitus insulin-dependent 4. History of CVA with chronic right-sided facial droop 5. Coronary artery disease with history of myocardial infarction 6. Stage IIIB chronic kidney disease 7. Non-thrombotic troponin leak most likely secondary to uncontrolled systolic blood pressure 8. Acute kidney injury: IV fluid hydration. Discontinue lisinopril and monitor Today, I reviewed her medication list and lab work results. Continue telemetry monitoring. Patient was counseled extensively about medication compliance. Guardian was contacted by the social sciences department chair and updated about her condition. She was placed in ECF previously to help her get her medication as prescribed but unfortunately she always wanted to be discharged.
[2016-09-22] MEDS: SODIUM CHLORIDE 0.9% 1,000 ML IV SCH ×2 (12:15→23:43)
[2016-09-22 16:29] LABS: Glucose,Whole Blood 346 mg/dL (75-99)
[2016-09-22 21:11] LABS: Glucose,Whole Blood 355 mg/dL (75-99)
[2016-09-23] MEDS: HYDROmorphone 1 MG/ML 1 ML SYRINGE IVP PRN ×2 (05:12→13:47)
[2016-09-23 06:06] LABS: Glucose,Whole Blood 118 mg/dL (75-99)
[2016-09-23] MEDS: INSULIN NPH/REG INSULIN 70/30 300 UNIT/3 ML VIAL SQ SCH ×2 (06:11→20:39)
[2016-09-23] MEDS: INSULIN LISPRO (humaLOG) 300 UNIT/3 ML VIAL SQ SCH ×4 (06:12→20:40)
[2016-09-23] MEDS: CILOSTAZOL 100 MG TAB PO SCH ×2 (06:20→20:38)
[2016-09-23] MEDS: CLOPIDOGREL 75 MG TAB PO SCH (06:20)
[2016-09-23] MEDS: ASPIRIN 325 MG TAB PO SCH (06:20)
[2016-09-23] MEDS: FAMOTIDINE 20 MG TAB PO SCH (06:20)
[2016-09-23] MEDS: GABAPENTIN 100 MG CAP PO SCH ×3 (06:21→20:39)
[2016-09-23] MEDS: ISOSORBIDE MONONITRATE ER 30 MG TAB.ER.24H PO SCH (06:21)
[2016-09-23] MEDS: diphenhydrAMINE 25 MG CAP PO SCH ×2 (06:21→20:39)
[2016-09-23] MEDS: EZETIMIBE 10 MG TAB PO SCH (06:21)
[2016-09-23] MEDS: predniSONE 20 MG TAB PO SCH ×2 (06:22→20:39)
[2016-09-23] MEDS: METOPROLOL TARTRATE 50 MG TAB PO SCH ×2 (06:22→20:39)
[2016-09-23] MEDS: SERTRALINE 100 MG TAB PO SCH (06:22)
[2016-09-23 07:04] LABS: Basophils % (A) 0 %; CH 29.6; CHCM 32.2; Eosinophils % (A) 0 %; HCT 29.7 % (34.0-46.0); HGB 9.5 gm/dL (11.4-16.0); Luc # (Auto) 0.05; Luc % (Auto) 0; Lymphocytes # (A) 0.8 k/uL (1.0-4.8); Lymphocytes % (A) 7 %; MCH 29.5 pg (25.0-35.0); MCHC 31.9 g/dL (31.0-37.0); MCV 92.2 fL (80.0-100.0); Mean Platelet Volume 6.7; Monocytes # (A) 0.4 k/uL (0-1.0); Monocytes % (A) 3 %; Neutrophils # (A) 11.1 k/uL (1.3-7.7); Neutrophils % (A) 90 %; RBC 3.22 m/uL (3.80-5.40); RDW 13.9 % (11.5-15.5); WBC 12.4 k/uL (3.8-10.6); WBC (Perox) 12.75
[2016-09-23 07:39] LABS: Calcium 8.4 mg/dL (8.4-10.2); Magnesium 1.7 mg/dL (1.6-2.3); Potassium 4.5 mmol/L (3.5-5.1)
[2016-09-23] MEDS ORDERED: LIDOCAINE 2% INJ 20 MG/ML (20 ML MDV) ONE (10:51)
[2016-09-23] MEDS ORDERED: fentaNYL (PF) 50 MCG/ML 2 ML AMP ONE (11:01)
[2016-09-23] MEDS ORDERED: MIDAZOLAM 2 MG/2 ML VIAL ONE (11:01)
[2016-09-23] MEDS ORDERED: MIDAZOLAM 2 MG/2 ML VIAL IVP ONE (11:19)
[2016-09-23] MEDS ORDERED: LIDOCAINE 2% INJ 20 MG/ML SQ ONE (11:21)
[2016-09-23] MEDS ORDERED: BIVALIRUDIN BOLUS 250 MG/50 ML IV ONE (11:29)
[2016-09-23] MEDS ORDERED: HYDROmorphone 2 MG/ML 1 ML SYRINGE ONE (11:39)
[2016-09-23] MEDS: HYDROmorphone 2 MG/ML 1 ML SYRINGE IVP ONE ×2 (11:41→11:57)
[2016-09-23] MEDS ORDERED: SODIUM CHLORIDE 0.9% 1,000 ML IV ONE (11:44)
[2016-09-23] MEDS ORDERED: BIVALIRUDIN 250 MG in SODIUM CHLORIDE 0.9% 50 ML IV ONE (11:45)
[2016-09-23] MEDS: NITROGLYCERIN 1000MCG/10ML SYRINGE INTRACORON ONE ×2 (11:54→11:58)
[2016-09-23] MEDS ORDERED: CLOPIDOGREL 75 MG TAB ONE (12:04)
[2016-09-23] MEDS ORDERED: NITROGLYCERIN SL TABS 0.4 MG TAB SUBLINGUAL PRN (12:05)
[2016-09-23] MEDS ORDERED: CLOPIDOGREL 75 MG TAB PO ONE (12:05)
[2016-09-23] MEDS ORDERED: ZOLPIDEM 5 MG TAB PO PRN (12:05)
[2016-09-23] MEDS ORDERED: RX INFO: IV CONTRAST WAS GIVEN 1 EACH MISC MISCELLANE PRN (12:05)
[2016-09-23] MEDS ORDERED: MAG HYDROX/AL HYDROX/SIMETH 30 ML CUP PO PRN (12:05)
[2016-09-23] MEDS ORDERED: ATROPINE SULFATE 0.1 MG/ML 10ML SYRINGE IV PRN (12:05)
[2016-09-23] MEDS ORDERED: SODIUM CHLORIDE 0.9% 1,000 ML IV SCH (12:15)
[2016-09-23] MEDS ORDERED: IOHEXOL 350 MG/ML 100 ML BOTTLE INJ ONE (12:20)
--- NOTE | 2016-09-23 12:21 | LTR ---
September 23, 2016 RE: Taiwo Marisabel Jacqueline Dear Mallory; MsDelphine Maravilla underwent successful stenting of the proximal LAD with a good angiographic result and without any complication. I want to thank you for allowing me to participate in her care and please do not hesitate to call if you have any questions or concerns. Sincerely, FAITH CLINTON MD
--- NOTE | 2016-09-23 12:25 | PTCA ---
DATE OF SERVICE: 09/23/2016 PERFORMING PHYSICIAN: Jagdeep Urbano MD, Novelty Chain Maker. PROCEDURE PERFORMED: Successful stenting of the proximal LAD using 2.5 x 12 mm Promus Premier KIERA with a good angiographic results. INDICATION: This is a pleasant 70-year-old female patient who was admitted to the hospital a few days ago with acute non-STEMI. She underwent a heart catheterization and that showed critical disease involving a very calcified proximal LAD. She was brought today to undergo an intervention on the LAD. APPROACH: Right common femoral artery. COMPLICATION: None. LEVEL OF SEDATION: Moderate. PROCEDURE DESCRIPTION: After obtaining informed consent, the patient was brought to the Cardiac Ediscovery Project Manager. The right common femoral artery was cannulated using micropuncture technique. The micropuncture wire passed easily, then I placed a 6 Italian sheath in the right common femoral artery. Subsequently, I did start anticoagulation using Angiomax. After that, I took JL3.5 guide and the left main was engaged. A whisper wire was used to wire the LAD. I did balloon angioplasty of the proximal LAD using 2.0 x 12 mm balloon. I tried to advance a 2.5 x 12 mm stent but the stent would not cross, so I had to double wire and use a run through wire as a ruba wire. After that I was able to advance 2.5 x 12 mm Promus Premier KIERA, after I felt advancing the Xience stent. The Promus premiere stent was positioned under fluoroscopy guidance and deployed under 12 atmospheres for 20 seconds. The following angiogram showed good angiographic results. POSTPROCEDURE MANAGEMENT: 1. Dual antiplatelet therapy. 2. Risk factor modifications. 3. Follow up with the patient.
[2016-09-23 13:02] LABS: Glucose,Whole Blood 152 mg/dL (75-99)
[2016-09-23] MEDS: HYDROcodone/APAP 10-325MG 1 EACH TAB PO PRN (15:59)
[2016-09-23] MEDS: ALPRAZolam 0.5 MG TAB PO PRN (15:59)
--- NOTE | 2016-09-23 16:07 | P.PN ---
Subjective Non-ST elevated [place] Patient is status post angioplasty with stents to the LAD procedure completed today. Currently chest pain-free. Denies any nausea or vomiting. She denies any shortness of breath. Objective - Vital Signs Vital signs: Vital Signs Temp 98 F 09/23/16 08:00 Pulse 69 09/23/16 08:00 Resp 18 09/23/16 14:30 BP 137/71 09/23/16 15:42 Pulse Ox 97 09/23/16 14:30 Intake & Output 09/22/16 09/23/16 09/23/16 18:59 06:59 18:59 Intake Total 1414.842 274.27 Output Total 300 Balance 1414.842 -25.73 Weight 68.3 kg Intake: IV 174.27 Intake, IV Titration 736.842 100 Amount Heparin Sodium,Porcine/ 136.842 D5w Pmx 25,000 unit In Dextrose/Water 1 500ml. bag @ 12 UNITS/KG/HR 15. 24 mls/hr IV .Q24H [facility] Rx #:[id number] Sodium Chloride 0.9% 1, 100 000 ml @ 100 mls/hr IV . Q10H [facility] Rx#:[id number] Sodium Chloride 0.9% 1, 600 000 ml @ 75 mls/hr IV . [id number] [facility] Rx#:[id number] Oral 678 0 Output: Urine 300 Other: Voiding Method Toilet Diaper # Voids 1 1 - Exam Head normocephalic Neck supple Lungs clear to auscultation bilaterally no wheezing or crackles Heart regular rate and rhythm S1-S2, no rub or gallop Abdomen is soft nontender nondistended positive bowel sounds no hepatosplenomegaly Extremities no edema Neuro alert and orientated to 3 - Labs CBC & Chem 7: 09/23/16 06:30 09/23/16 06:30 Labs: Abnormal Lab Results - Last 24 Hours (Table) 09/22/16 09/22/16 09/22/16 Range/Units 16:27 18:00 21:10 WBC (3.8-10.6) k/uL RBC (3.80-5.40) m/uL Hgb (11.4-16.0) gm/dL Hct (34.0-46.0) % Neutrophils # (1.3-7.7) k/uL Lymphocytes # (1.0-4.8) k/uL APTT 58.0 H (22.0-30.0) sec Chloride (98-107) mmol/L BUN (7-17) mg/dL Creatinine (0.52-1.04) mg/dL Glucose (74-99) mg/dL POC Glucose (mg/dL) 346 H 355 H (75-99) mg/dL 09/23/16 09/23/16 09/23/16 Range/Units 06:05 06:30 06:30 WBC 12.4 H (3.8-10.6) k/uL RBC 3.22 L (3.80-5.40) m/uL Hgb 9.5 L (11.4-16.0) gm/dL Hct 29.7 L (34.0-46.0) % Neutrophils # 11.1 H (1.3-7.7) k/uL Lymphocytes # 0.8 L (1.0-4.8) k/uL APTT (22.0-30.0) sec Chloride 109 H (98-107) mmol/L BUN 42 H (7-17) mg/dL Creatinine 1.51 H (0.52-1.04) mg/dL Glucose 102 H (74-99) mg/dL POC Glucose (mg/dL) 118 H (75-99) mg/dL 09/23/16 09/23/16 Range/Units 06:30 12:57 WBC (3.8-10.6) k/uL RBC (3.80-5.40) m/uL Hgb (11.4-16.0) gm/dL Hct (34.0-46.0) % Neutrophils # (1.3-7.7) k/uL Lymphocytes # (1.0-4.8) k/uL APTT 21.3 L (22.0-30.0) sec Chloride (98-107) mmol/L BUN (7-17) mg/dL Creatinine (0.52-1.04) mg/dL Glucose (74-99) mg/dL POC Glucose (mg/dL) 152 H (75-99) mg/dL Assessment and Plan Plan: 1. Non-ST elevation [place]: Seen and evaluated by cardiology. Patient underwent left heart catheterization showing unchanged diffusely diseased right coronary artery, severe stenosis noted the proximal LAD. Patient had stent to LAD completed today 2. Hypertensive emergency on presentation 3. Type 2 diabetes mellitus insulin-dependent 4. History of CVA with chronic right-sided facial droop 5. Coronary artery disease with history of myocardial infarction 6. Stage IIIB chronic kidney disease 7. Non-thrombotic troponin leak most likely secondary to uncontrolled systolic blood pressure 8. Acute kidney injury: IV fluid hydration. Discontinue lisinopril and monitor 9. Anemia: Hemoglobin 9.5. No signs of active bleeding. Check iron studies. Also could possibly related to her chronic kidney disease. Continue to monitor.
[2016-09-23 16:45] LABS: % Iron Saturation 22.5 % (20-50)
[2016-09-23 17:12] LABS: Glucose,Whole Blood 253 mg/dL (75-99)
[2016-09-23 20:07] LABS: Glucose,Whole Blood 206 mg/dL (75-99)
[2016-09-24 05:50] LABS: Glucose,Whole Blood 134 mg/dL (75-99)
[2016-09-24] MEDS: INSULIN LISPRO (humaLOG) 300 UNIT/3 ML VIAL SQ SCH ×4 (06:12→21:29)
[2016-09-24] MEDS: HYDROmorphone 1 MG/ML 1 ML SYRINGE IVP PRN ×3 (06:41→21:27)
[2016-09-24 06:49] LABS: Basophils % (A) 0 %; CH 29.9; CHCM 32.2; Eosinophils % (A) 0 %; HCT 30.7 % (34.0-46.0); HDW 2.69; HGB 9.7 gm/dL (11.4-16.0); Luc # (Auto) 0.09; Luc % (Auto) 1; Lymphocytes # (A) 0.9 k/uL (1.0-4.8); Lymphocytes % (A) 10 %; MCH 29.4 pg (25.0-35.0); MCHC 31.6 g/dL (31.0-37.0); MCV 93.1 fL (80.0-100.0); Mean Platelet Volume 6.6; Monocytes # (A) 0.3 k/uL (0-1.0); Monocytes % (A) 4 %; Neutrophils # (A) 7.8 k/uL (1.3-7.7); Neutrophils % (A) 86 %; RBC 3.29 m/uL (3.80-5.40); WBC 9.1 k/uL (3.8-10.6); WBC (Perox) 9.77
[2016-09-24 07:08] LABS: Calcium 8.7 mg/dL (8.4-10.2); Magnesium 1.7 mg/dL (1.6-2.3)
[2016-09-24] MEDS: ASPIRIN 325 MG TAB PO SCH (08:03)
[2016-09-24] MEDS: FAMOTIDINE 20 MG TAB PO SCH (08:03)
[2016-09-24] MEDS: CLOPIDOGREL 75 MG TAB PO SCH (08:03)
[2016-09-24] MEDS: CILOSTAZOL 100 MG TAB PO SCH ×2 (08:03→21:29)
[2016-09-24] MEDS: ISOSORBIDE MONONITRATE ER 30 MG TAB.ER.24H PO SCH (08:04)
[2016-09-24] MEDS: GABAPENTIN 100 MG CAP PO SCH ×3 (08:04→21:30)
[2016-09-24] MEDS: diphenhydrAMINE 25 MG CAP PO SCH ×2 (08:04→21:29)
[2016-09-24] MEDS: EZETIMIBE 10 MG TAB PO SCH (08:04)
[2016-09-24] MEDS: SERTRALINE 100 MG TAB PO SCH (08:05)
[2016-09-24] MEDS: predniSONE 20 MG TAB PO SCH ×2 (08:05→21:30)
[2016-09-24] MEDS: HYDROcodone/APAP 10-325MG 1 EACH TAB PO PRN ×2 (08:05→15:42)
[2016-09-24] MEDS: ALPRAZolam 0.5 MG TAB PO PRN (08:05)
[2016-09-24] MEDS: METOPROLOL TARTRATE 50 MG TAB PO SCH ×2 (08:05→21:30)
[2016-09-24] MEDS: INSULIN NPH/REG INSULIN 70/30 300 UNIT/3 ML VIAL SQ SCH ×2 (08:09→21:29)
--- NOTE | 2016-09-24 11:58 | P.PN ---
Subjective Principal diagnosis: Non-STEMI Supplies a 70-year-old female patient who was admitted to the hospital a few days ago with acute non-STEMI. Gen. heart catheterization that showed critical disease involving proximal LAD and subsequently underwent stenting. Her blood pressure has been suboptimally controlled. On examination today she appears to be feeling well is complaining of some constipation. Denies complaints of chest discomfort at this time. Objective - Vital Signs Vital signs: Vital Signs Temp 98.1 F 09/24/16 11:38 Pulse 74 09/24/16 11:38 Resp 18 09/24/16 11:38 BP 204/96 09/24/16 11:38 Pulse Ox 94 L 09/24/16 11:38 Intake & Output 09/23/16 09/24/16 09/24/16 18:59 06:59 18:59 Intake Total 374.27 900 260 Output Total 300 900 Balance 74.27 0 260 Weight 69.1 kg Intake: IV 174.27 Intake, IV Titration 100 600 Amount Sodium Chloride 0.9% 1, 100 600 000 ml @ 100 mls/hr IV . Q10H [facility] Rx#:[id number] Oral 100 300 260 Output: Urine 300 900 Other: Voiding Method Toilet Diaper Diaper # Voids 1 - Exam PHYSICAL EXAMINATION: HEENT: Head is atraumatic, normocephalic. Pupils equal, round. Neck is supple. There is no elevated jugular venous pressure. HEART EXAMINATION: Heart sounds regular, S1 and S2 normal. No murmur or gallop heard. CHEST EXAMINATION: Lungs are clear to auscultation and precussion. No chest wall tenderness is noted on palpation or with deep breathing. ABDOMEN: Soft, nontender. Bowel sounds are heard. No organomegaly noted. EXTREMITIES: Diminished peripheral pulses with no evidence of peripheral edema and no calf tenderness noted. Right groin puncture site soft without hematoma or ecchymosis.. NEUROLOGIC patient is awake, alert and oriented x3. . - Labs CBC & Chem 7: 09/24/16 06:22 09/24/16 06:22 Labs: Abnormal Lab Results - Last 24 Hours (Table) 09/23/16 09/23/16 09/23/16 Range/Units 12:57 16:42 20:02 RBC (3.80-5.40) m/uL Hgb (11.4-16.0) gm/dL Hct (34.0-46.0) % Neutrophils # (1.3-7.7) k/uL Lymphocytes # (1.0-4.8) k/uL Chloride (98-107) mmol/L Carbon Dioxide (22-30) mmol/L BUN (7-17) mg/dL Creatinine (0.52-1.04) mg/dL Glucose (74-99) mg/dL POC Glucose (mg/dL) 152 H 253 H 206 H (75-99) mg/dL 09/24/16 09/24/16 09/24/16 Range/Units 05:48 06:22 06:22 RBC 3.29 L (3.80-5.40) m/uL Hgb 9.7 L (11.4-16.0) gm/dL Hct 30.7 L (34.0-46.0) % Neutrophils # 7.8 H (1.3-7.7) k/uL Lymphocytes # 0.9 L (1.0-4.8) k/uL Chloride 111 H (98-107) mmol/L Carbon Dioxide 20 L (22-30) mmol/L BUN 41 H (7-17) mg/dL Creatinine 1.31 H (0.52-1.04) mg/dL Glucose 123 H (74-99) mg/dL POC Glucose (mg/dL) 134 H (75-99) mg/dL Assessment and Plan Plan: Assessment and plan #1 non-STEMI, status post stent placement to the LAD #2 hypertension, poorly controlled #3 diabetes #4 hyperlipidemia #5 chronic renal disease #6 history of DVT #7 history of CVA #8 peripheral vascular disease From cardiac standpoint, we will add lisinopril. Continue dual antiplatelet therapy. We will continue to follow the patient and provide further recommendations accordingly. LEGAL ASSOCIATE note has been reviewed, I agree with a documented findings and plan of care. Patient was seen and examined.
[2016-09-24 12:02] LABS: Glucose,Whole Blood 181 mg/dL (75-99)
[2016-09-24] MEDS: LISINOPRIL 5 MG TAB PO SCH ×2 (13:04→21:30)
[2016-09-24] MEDS ORDERED: NA PHOS,M-B/NA PHOS,DI-BA 133 ML ENEMA RECTAL ONE (13:15)
--- NOTE | 2016-09-24 13:37 | P.PN ---
Subjective Principal diagnosis: Non-ST elevation myocardial infarction Patient is status post angioplasty with stents to the LAD procedure completed yesterday. Currently chest pain-free. She is complaining of constipation Denies any nausea or vomiting. No abdominal pain .She denies any shortness of breath. Objective - Vital Signs Vital signs: Vital Signs Temp 98.1 F 09/24/16 11:38 Pulse 74 09/24/16 11:38 Resp 18 09/24/16 11:38 BP 204/96 09/24/16 11:38 Pulse Ox 94 L 09/24/16 11:38 Intake & Output 09/23/16 09/24/16 09/24/16 18:59 06:59 18:59 Intake Total 374.27 900 260 Output Total 300 900 Balance 74.27 0 260 Weight 69.1 kg Intake: IV 174.27 Intake, IV Titration 100 600 Amount Sodium Chloride 0.9% 1, 100 600 000 ml @ 100 mls/hr IV . Q10H [facility] Rx#:[id number] Oral 100 300 260 Output: Urine 300 900 Other: Voiding Method Toilet Diaper Diaper # Voids 1 - Exam In general patient is alert and oriented 3 in no apparent distress HEENT head normocephalic and atraumatic Neck is supple no JVD no goiter no lymphadenopathy Chest exam reveals a few scattered rhonchi no wheezing Cardiac exam reveals S1 and S2 regular rhythm no gallops no murmurs Abdomen is soft nontender no organomegaly Extremity exam reveals no edema no cyanosis or clubbing Neurological examination reveals no focal deficit Skin exam reveals no open ulcers no rashes or ecchymoses - Labs CBC & Chem 7: 09/24/16 06:22 09/24/16 06:22 Labs: Abnormal Lab Results - Last 24 Hours (Table) 09/23/16 09/23/16 09/24/16 Range/Units 16:42 20:02 05:48 RBC (3.80-5.40) m/uL Hgb (11.4-16.0) gm/dL Hct (34.0-46.0) % Neutrophils # (1.3-7.7) k/uL Lymphocytes # (1.0-4.8) k/uL Chloride (98-107) mmol/L Carbon Dioxide (22-30) mmol/L BUN (7-17) mg/dL Creatinine (0.52-1.04) mg/dL Glucose (74-99) mg/dL POC Glucose (mg/dL) 253 H 206 H 134 H (75-99) mg/dL 09/24/16 09/24/16 09/24/16 Range/Units 06:22 06:22 11:59 RBC 3.29 L (3.80-5.40) m/uL Hgb 9.7 L (11.4-16.0) gm/dL Hct 30.7 L (34.0-46.0) % Neutrophils # 7.8 H (1.3-7.7) k/uL Lymphocytes # 0.9 L (1.0-4.8) k/uL Chloride 111 H (98-107) mmol/L Carbon Dioxide 20 L (22-30) mmol/L BUN 41 H (7-17) mg/dL Creatinine 1.31 H (0.52-1.04) mg/dL Glucose 123 H (74-99) mg/dL POC Glucose (mg/dL) 181 H (75-99) mg/dL Assessment and Plan Plan: 1. Non-ST elevation [place]: Seen and evaluated by cardiology. Patient underwent left heart catheterization showing unchanged diffusely diseased right coronary artery, severe stenosis noted the proximal LAD. Patient had stent to LAD completed today 2. Hypertensive emergency on presentation 3. Type 2 diabetes mellitus insulin-dependent 4. History of CVA with chronic right-sided facial droop 5. Coronary artery disease with history of myocardial infarction 6. Stage IIIB chronic kidney disease 7. Non-thrombotic troponin leak most likely secondary to uncontrolled systolic blood pressure 8. Acute kidney injury: IV fluid hydration. Discontinue lisinopril and monitor 9. Anemia: Hemoglobin 9.5. No signs of active bleeding. Check iron studies. Also could possibly related to her chronic kidney disease. Continue to monitor. Will follow in a.m. possible discharge in the next 1-2 days
[2016-09-24 16:54] LABS: Glucose,Whole Blood 279 mg/dL (75-99)
[2016-09-24 21:11] LABS: Glucose,Whole Blood 216 mg/dL (75-99)
[2016-09-25] MEDS: HYDROcodone/APAP 10-325MG 1 EACH TAB PO PRN ×3 (00:29→16:10)
[2016-09-25 06:25] LABS: Glucose,Whole Blood 118 mg/dL (75-99)
[2016-09-25] MEDS: INSULIN LISPRO (humaLOG) 300 UNIT/3 ML VIAL SQ SCH ×4 (06:33→21:33)
[2016-09-25] MEDS: HYDROmorphone 1 MG/ML 1 ML SYRINGE IVP PRN ×2 (06:55→14:17)
[2016-09-25 07:21] LABS: Basophils % (A) 0 %; CHCM 32.8; Eosinophils % (A) 0 %; HCT 31.7 % (34.0-46.0); HDW 2.74; Luc # (Auto) 0.06; Luc % (Auto) 1; Lymphocytes # (A) 1.2 k/uL (1.0-4.8); Lymphocytes % (A) 12 %; MCH 29.1 pg (25.0-35.0); MCHC 31.7 g/dL (31.0-37.0); MCV 91.8 fL (80.0-100.0); Mean Platelet Volume 6.8; Monocytes # (A) 0.4 k/uL (0-1.0); Monocytes % (A) 4 %; Neutrophils % (A) 83 %; RBC 3.45 m/uL (3.80-5.40); RDW 14.1 % (11.5-15.5); WBC 9.7 k/uL (3.8-10.6); WBC (Perox) 9.74
[2016-09-25 07:55] LABS: Calcium 9.1 mg/dL (8.4-10.2); Magnesium 1.7 mg/dL (1.6-2.3); Potassium 5.1 mmol/L (3.5-5.1)
[2016-09-25] MEDS: GABAPENTIN 100 MG CAP PO SCH ×3 (08:50→21:35)
[2016-09-25] MEDS: CILOSTAZOL 100 MG TAB PO SCH ×2 (08:50→20:14)
[2016-09-25] MEDS: LISINOPRIL 5 MG TAB PO SCH ×2 (08:50→20:14)
[2016-09-25] MEDS: ASPIRIN 325 MG TAB PO SCH (08:50)
[2016-09-25] MEDS: diphenhydrAMINE 25 MG CAP PO SCH ×2 (08:50→20:14)
[2016-09-25] MEDS: ISOSORBIDE MONONITRATE ER 30 MG TAB.ER.24H PO SCH (08:50)
[2016-09-25] MEDS: predniSONE 20 MG TAB PO SCH ×2 (08:50→20:14)
[2016-09-25] MEDS: SERTRALINE 100 MG TAB PO SCH (08:51)
[2016-09-25] MEDS: METOPROLOL TARTRATE 50 MG TAB PO SCH ×2 (08:51→20:14)
[2016-09-25] MEDS: CLOPIDOGREL 75 MG TAB PO SCH (08:51)
[2016-09-25] MEDS: FAMOTIDINE 20 MG TAB PO SCH (08:52)
[2016-09-25] MEDS: EZETIMIBE 10 MG TAB PO SCH (08:52)
[2016-09-25] MEDS: INSULIN NPH/REG INSULIN 70/30 300 UNIT/3 ML VIAL SQ SCH ×2 (08:52→21:33)
[2016-09-25] MEDS: ALPRAZolam 0.5 MG TAB PO PRN ×2 (10:44→16:10)
--- NOTE | 2016-09-25 11:21 | P.PN ---
Subjective Principal diagnosis: Acute coronary event This is a pleasant 70-year-old female patient with a known CAD, hypertension, dyslipidemia was sensitive to the hospital with a chest discomfort and was ruled in for acute non-ST me. She underwent a heart catheterization and was found to have critical disease involving the proximal LAD. She underwent successful stenting of the LAD with a good angiographic results and without any complication. She denies having any chest pain or discomfort or difficulty breathing. She continues to be on dual antiplatelet therapy as well as statin. From the cardiovascular standpoint overview, she can be discharged home. Objective - Vital Signs Vital signs: Vital Signs Temp 97.2 F L 09/25/16 04:00 Pulse 68 09/25/16 04:00 Resp 18 09/25/16 04:00 BP 158/82 09/25/16 04:00 Pulse Ox 96 09/25/16 04:00 Intake & Output 09/24/16 09/25/16 09/25/16 18:59 06:59 18:59 Intake Total 1060 600 Balance 1060 600 Weight 67.7 kg Intake: Intake, IV Titration 0 Amount Sodium Chloride 0.9% 500 0 ml As IV .[facility] Rx# :[id number] Oral 1060 600 Other: Voiding Method Toilet Toilet Diaper Diaper # Voids 4 0 - Constitutional General appearance: Present: no acute distress - Respiratory Respiratory: bilateral: CTA - Cardiovascular Heart sounds: normal: S1, S2 - Labs CBC & Chem 7: 09/25/16 06:12 09/25/16 06:12 Labs: Abnormal Lab Results - Last 24 Hours (Table) 09/24/16 09/24/16 09/24/16 Range/Units 11:59 16:47 21:04 RBC (3.80-5.40) m/uL Hgb (11.4-16.0) gm/dL Hct (34.0-46.0) % Neutrophils # (1.3-7.7) k/uL Chloride (98-107) mmol/L Carbon Dioxide (22-30) mmol/L BUN (7-17) mg/dL Creatinine (0.52-1.04) mg/dL POC Glucose (mg/dL) 181 H 279 H 216 H (75-99) mg/dL 05/07/17 05/07/17 05/07/17 Range/Units 06:12 06:12 06:17 RBC 3.45 L (3.80-5.40) m/uL Hgb 10.0 L (11.4-16.0) gm/dL Hct 31.7 L (34.0-46.0) % Neutrophils # 8.0 H (1.3-7.7) k/uL Chloride 110 H (98-107) mmol/L Carbon Dioxide 21 L (22-30) mmol/L BUN 41 H (7-17) mg/dL Creatinine 1.29 H (0.52-1.04) mg/dL POC Glucose (mg/dL) 118 H (75-99) mg/dL Assessment and Plan Plan: Assessment #1 acute coronary event #2 status post LAD stenting #3 multiple comorbid conditions Plan #1 continue the current medical treatment #2 the patient can be discharged home
[2016-09-25 12:01] LABS: Glucose,Whole Blood 166 mg/dL (75-99)
[2016-09-25] MEDS ORDERED: LACTULOSE 20 GM/30 ML CUP PO ONE (13:39)
--- NOTE | 2016-09-25 13:42 | P.PN ---
Subjective Principal diagnosis: Non-ST elevation myocardial infarction Patient is status post angioplasty with stents to the LAD procedure completed yesterday. Currently chest pain-free. She is complaining of constipation Denies any nausea or vomiting. No abdominal pain .She denies any shortness of breath. Objective - Vital Signs Vital signs: Vital Signs Temp 98.2 F 09/25/16 11:50 Pulse 63 09/25/16 11:50 Resp 18 09/25/16 11:50 BP 160/82 09/25/16 11:50 Pulse Ox 96 09/25/16 11:50 Intake & Output 09/24/16 09/25/16 09/25/16 18:59 06:59 18:59 Intake Total 1060 600 500 Balance 1060 600 500 Weight 67.7 kg Intake: Intake, IV Titration 0 Amount Sodium Chloride 0.9% 500 0 ml As IV .[employer] ONE Rx# :[id number] Oral 1060 600 500 Other: Voiding Method Toilet Toilet Toilet Diaper Diaper Diaper # Voids 4 0 - Exam In general patient is alert and oriented 3 in no apparent distress HEENT head normocephalic and atraumatic Neck is supple no JVD no goiter no lymphadenopathy Chest exam reveals a few scattered rhonchi no wheezing Cardiac exam reveals S1 and S2 regular rhythm no gallops no murmurs Abdomen is soft nontender no organomegaly Extremity exam reveals no edema no cyanosis or clubbing Neurological examination reveals no focal deficit Skin exam reveals no open ulcers no rashes or ecchymoses - Labs CBC & Chem 7: 09/25/16 06:12 09/25/16 06:12 Labs: Abnormal Lab Results - Last 24 Hours (Table) 09/24/16 09/24/16 09/25/16 Range/Units 16:47 21:04 06:12 RBC 3.45 L (3.80-5.40) m/uL Hgb 10.0 L (11.4-16.0) gm/dL Hct 31.7 L (34.0-46.0) % Neutrophils # 8.0 H (1.3-7.7) k/uL Chloride (98-107) mmol/L Carbon Dioxide (22-30) mmol/L BUN (7-17) mg/dL Creatinine (0.52-1.04) mg/dL POC Glucose (mg/dL) 279 H 216 H (75-99) mg/dL 09/25/16 09/25/16 09/25/16 Range/Units 06:12 06:17 11:45 RBC (3.80-5.40) m/uL Hgb (11.4-16.0) gm/dL Hct (34.0-46.0) % Neutrophils # (1.3-7.7) k/uL Chloride 110 H (98-107) mmol/L Carbon Dioxide 21 L (22-30) mmol/L BUN 41 H (7-17) mg/dL Creatinine 1.29 H (0.52-1.04) mg/dL POC Glucose (mg/dL) 118 H 166 H (75-99) mg/dL Assessment and Plan Plan: 1. Non-ST elevation [place]: Seen and evaluated by cardiology. Patient underwent left heart catheterization showing unchanged diffusely diseased right coronary artery, severe stenosis noted the proximal LAD. Patient had stent to LAD completed today 2. Hypertensive emergency on presentation 3. Type 2 diabetes mellitus insulin-dependent 4. History of CVA with chronic right-sided facial droop 5. Coronary artery disease with history of myocardial infarction 6. Stage IIIB chronic kidney disease 7. Non-thrombotic troponin leak most likely secondary to uncontrolled systolic blood pressure 8. Acute kidney injury: IV fluid hydration. Discontinue lisinopril and monitor 9. Anemia: Hemoglobin 9.5. No signs of active bleeding. Check iron studies. Also could possibly related to her chronic kidney disease. Continue to monitor. Patient was seen and examined she is complaining of nausea he is complaining of abdominal pain and constipation She was cleared by cardiology for discharge however she states that she is not ready to go home Will give lactulose 20 g by mouth now, will transfer to medical floor and monitor for 24 more hours plan for discharge tomorrow
[2016-09-25] MEDS: ONDANSETRON 4 MG/2 ML VIAL IVP PRN (16:11)
[2016-09-25 16:57] LABS: Glucose,Whole Blood 303 mg/dL (75-99)
[2016-09-25] MEDS ORDERED: ATORVASTATIN 40 MG TAB PO SCH (21:00)
[2016-09-25 21:12] LABS: Glucose,Whole Blood 338 mg/dL (75-99)
[2016-09-26] MEDS: HYDROmorphone 1 MG/ML 1 ML SYRINGE IVP PRN ×2 (06:14→12:43)
[2016-09-26 06:59] LABS: Glucose,Whole Blood 211 mg/dL (75-99)
[2016-09-26] MEDS: HYDROcodone/APAP 10-325MG 1 EACH TAB PO PRN ×2 (07:07→14:16)
[2016-09-26] MEDS: INSULIN LISPRO (humaLOG) 300 UNIT/3 ML VIAL SQ SCH ×2 (07:57→12:42)
[2016-09-26] MEDS: CILOSTAZOL 100 MG TAB PO SCH (07:58)
[2016-09-26] MEDS: ISOSORBIDE MONONITRATE ER 30 MG TAB.ER.24H PO SCH (07:58)
[2016-09-26] MEDS: GABAPENTIN 100 MG CAP PO SCH ×2 (07:58→16:26)
[2016-09-26] MEDS: predniSONE 20 MG TAB PO SCH (07:59)
[2016-09-26] MEDS: SERTRALINE 100 MG TAB PO SCH (07:59)
[2016-09-26] MEDS: FAMOTIDINE 20 MG TAB PO SCH (07:59)
[2016-09-26] MEDS: EZETIMIBE 10 MG TAB PO SCH (07:59)
[2016-09-26] MEDS: LISINOPRIL 5 MG TAB PO SCH (07:59)
[2016-09-26] MEDS: CLOPIDOGREL 75 MG TAB PO SCH (07:59)
[2016-09-26] MEDS: ASPIRIN 325 MG TAB PO SCH (07:59)
[2016-09-26] MEDS: METOPROLOL TARTRATE 50 MG TAB PO SCH (07:59)
[2016-09-26] MEDS: INSULIN NPH/REG INSULIN 70/30 300 UNIT/3 ML VIAL SQ SCH (08:00)
[2016-09-26 08:09] LABS: Basophils % (A) 0 %; CHCM 32.9; Eosinophils % (A) 0 %; HCT 31.9 % (34.0-46.0); HDW 2.69; HGB 10.6 gm/dL (11.4-16.0); Luc # (Auto) 0.08; Luc % (Auto) 1; Lymphocytes % (A) 10 %; MCH 30.4 pg (25.0-35.0); MCHC 33.3 g/dL (31.0-37.0); MCV 91.3 fL (80.0-100.0); Mean Platelet Volume 6.7; Monocytes # (A) 0.4 k/uL (0-1.0); Monocytes % (A) 5 %; Neutrophils # (A) 8.3 k/uL (1.3-7.7); Neutrophils % (A) 84 %; RBC 3.49 m/uL (3.80-5.40); RDW 14.1 % (11.5-15.5); WBC 9.8 k/uL (3.8-10.6); WBC (Perox) 10.62
[2016-09-26] MEDS: diphenhydrAMINE 25 MG CAP PO SCH (08:15)
[2016-09-26 08:28] LABS: Potassium 5.7 mmol/L (3.5-5.1); Total Bilirubin 0.3 mg/dL (0.2-1.3); Total Protein 5.9 g/dL (6.3-8.2)
[2016-09-26 10:38] VITALS: RESP 16
[2016-09-26] MEDS: ONDANSETRON 4 MG/2 ML VIAL IVP PRN (11:08)
[2016-09-26] MEDS ORDERED: ASPIRIN 81 MG CHEW PO SCH (11:30)
[2016-09-26 11:56] LABS: Glucose,Whole Blood 288 mg/dL (75-99)
[2016-09-26 14:35] VITALS: BMI 29.1
--- NOTE | 2016-09-26 15:51 | P.DS ---
Providers Date of admission: 09/20/16 10:22 Expected date of discharge: 09/26/16 Attending physician: Mallory Hernandez Consults: 09/23/16 12:05 Consult Physician Routine Consulting Provider: [facility] Consult Reason/Comments: Post Interventional patient Do you want consulting provider notified?: Already Contacted [facility] Course: 1. Non-ST elevation [place]: Seen and evaluated by cardiology. Patient underwent left heart catheterization showing unchanged diffusely diseased right coronary artery, severe stenosis noted the proximal LAD status post drug-eluting stent to proximal LAD. 2. Hypertensive emergency on presentation. Blood pressure better controlled 3. Type 2 diabetes mellitus insulin-dependent 4. History of CVA with chronic right-sided facial droop 5. Coronary artery disease with history of myocardial infarction 6. Stage IIIB chronic kidney disease 7. Non-thrombotic troponin leak most likely secondary to uncontrolled systolic blood pressure 8. Acute kidney injury: Improved with IV fluid hydration. Patient will be discharged home in stable condition. She was counseled extensively about medication compliance. Please refer to the electronic chart for further details about this hospitalization. Patient Condition at Discharge: Serious Plan - Discharge Summary New Discharge Prescriptions: Aspirin 81 mg PO DAILY #90 chew Clopidogrel [Plavix] 75 mg PO DAILY #90 tab Ezetimibe [Zetia] 10 mg PO DAILY #90 tab Gabapentin [Neurontin] 100 mg PO TID #90 cap Insulin NPH/Reg Insulin 70/30 [humuLIN 70/30 VIAL] 20 unit SQ BID #5 vial Metoprolol Tartrate [Lopressor] 50 mg PO BID #120 tab Discharge Medication List Albuterol Inhaler [Ventolin Hfa Inhaler] 2 puff INHALATION RT-BID PRN 06/02/16 [ History] Cilostazol [Pletal] 100 mg PO BID 06/02/16 [History] Sertraline HCl [Zoloft] 100 mg PO DAILY 06/02/16 [History] Nitroglycerin Sl Tabs [Nitrostat] 0.4 mg SUBLINGUAL Q5M PRN 08/04/16 [History] Hydrocodone/Acetaminophen [[place] 10-325] 1 tab PO Q8HR PRN 09/20/16 [History] Lisinopril [Zestril] 10 mg PO DAILY 09/20/16 [History] Aspirin 81 mg PO DAILY #90 chew 09/26/16 [Rx] Clopidogrel [Plavix] 75 mg PO DAILY #90 tab 09/26/16 [Rx] Ezetimibe [Zetia] 10 mg PO DAILY #90 tab 09/26/16 [Rx] Gabapentin [Neurontin] 100 mg PO TID #90 cap 09/26/16 [Rx] Insulin NPH/Reg Insulin 70/30 [humuLIN 70/30 VIAL] 20 unit SQ BID #5 vial [Rx] Metoprolol Tartrate [Lopressor] 50 mg PO BID #120 tab 09/26/16 [Rx] Follow up Appointment(s)/Referral(s): Jagdeep Urbano MD [STAFF PHYSICIAN] - 1 Week (Please call office and schedule follow up appointment during normal business hours. ) [facility], [NON-STAFF] - Mallory Hernandez MD [Primary Care Provider] - 1-2 days Discharge Disposition: HOME WITH HOME HEALTH SERVICES
[2016-09-26 16:22] VITALS: BP 108/52; PULSE 72; TEMP 98.4
[2016-09-26] MEDS ORDERED: ASPIRIN 81 MG CHEW PO STA (17:02)
--- NOTE | 2016-09-26 17:56 | PN ---
This is a lady who underwent LAD stenting by Dr. Urbano. She has history of aggravated hypertension, but blood pressure appears to be quite normal today. She is resting comfortably. Denies chest pain. I am recommending that she can be discharged and should see Dr. Urbano in about a week or so. I am recommending aspirin and Plavix. I explained this to the patient. I also talked to the nurse and explained to her the importance of making sure these prescriptions are given. I will give her a prescription for Plavix 75 mg daily and she will continue all her other medications. She will also take atorvastatin 40 mg daily as well. Vital signs are stable. S1, S2 heard normally. Lungs reveal diminished air entry. Abdomen and lower extremity exam is unchanged. Patient can be discharged today.
[2016-09-27] MEDS ORDERED: ASPIRIN 81 MG CHEW PO SCH (09:00)
== END 2016-09-26 17:19 | disposition home health service (06) | DRG 247 ==
LOC: EC 07:21 → 6SEL 10:22 → 4MS4W 09-25 15:34
PROVIDERS: ADMIT Internal Medicine; ATTEND Internal Medicine
PROC: 4A023N7 Measurement of Cardiac Sampling and Pressure, Left Heart, Percutaneous Approach (ICD-10-PCS; 2016-09-21)
PROC: B2111ZZ Fluoroscopy of Multiple Coronary Arteries using Low Osmolar Contrast (ICD-10-PCS; 2016-09-21)
PROC: 4A023N7 Measurement of Cardiac Sampling and Pressure, Left Heart, Percutaneous Approach (ICD-10-PCS; 2016-09-23)
PROC: B2101ZZ Fluoroscopy of Single Coronary Artery using Low Osmolar Contrast (ICD-10-PCS; 2016-09-23)
PROC: 027034Z Dilation of Coronary Artery, One Artery with Drug-eluting Intraluminal Device, Percutaneous Approach (ICD-10-PCS; principal; 2016-09-23 10:47)
DX: I21.4 Non-ST elevation (NSTEMI) myocardial infarction (principal); N17.9 Acute kidney failure, unspecified; E11.22 Type 2 diabetes mellitus with diabetic chronic kidney disease; Q60.0 Renal agenesis, unilateral; I16.1 Hypertensive emergency; E11.51 Type 2 diabetes mellitus with diabetic peripheral angiopathy without gangrene; J44.9 Chronic obstructive pulmonary disease, unspecified; I45.10 Unspecified right bundle-branch block; I25.10 Atherosclerotic heart disease of native coronary artery without angina pectoris; N18.3 Chronic kidney disease, stage 3 (moderate); I12.9 Hypertensive chronic kidney disease with stage 1 through stage 4 chronic kidney disease, or unspecified chronic kidney disease; I16.0 Hypertensive urgency; I25.2 Old myocardial infarction; E78.5 Hyperlipidemia, unspecified; R74.8 Abnormal levels of other serum enzymes; I69.392 Facial weakness following cerebral infarction; J45.909 Unspecified asthma, uncomplicated; E11.42 Type 2 diabetes mellitus with diabetic polyneuropathy; D63.1 Anemia in chronic kidney disease; R29.6 Repeated falls; K59.00 Constipation, unspecified; T46.4X6A Underdosing of angiotensin-converting-enzyme inhibitors, initial encounter; F40.240 Claustrophobia; M54.5 Low back pain; F41.9 Anxiety disorder, unspecified; F32.9 Major depressive disorder, single episode, unspecified; R35.0 Frequency of micturition; M19.90 Unspecified osteoarthritis, unspecified site; R10.9 Unspecified abdominal pain; R11.0 Nausea; F17.200 Nicotine dependence, unspecified, uncomplicated; Z88.0 Allergy status to penicillin; Z88.2 Allergy status to sulfonamides; Z87.01 Personal history of pneumonia (recurrent); Z86.19 Personal history of other infectious and parasitic diseases; Z87.09 Personal history of other diseases of the respiratory system; Z79.02 Long term (current) use of antithrombotics/antiplatelets; Z79.4 Long term (current) use of insulin; Z79.899 Other long term (current) drug therapy; Z82.49 Family history of ischemic heart disease and other diseases of the circulatory system; Z83.3 Family history of diabetes mellitus; Z86.718 Personal history of other venous thrombosis and embolism; Z87.442 Personal history of urinary calculi; Z87.440 Personal history of urinary (tract) infections; Z91.19 Patient's noncompliance with other medical treatment and regimen; Z91.14 Patient's other noncompliance with medication regimen; Z88.1 Allergy status to other antibiotic agents; Z91.041 Radiographic dye allergy status; Z79.51 Long term (current) use of inhaled steroids; Z90.710 Acquired absence of both cervix and uterus; Z90.49 Acquired absence of other specified parts of digestive tract; Z84.1 Family history of disorders of kidney and ureter; Z71.3 Dietary counseling and surveillance; Z80.9 Family history of malignant neoplasm, unspecified; Z89.422 Acquired absence of other left toe(s); Z91.81 History of falling
CPT/HCPCS: 36415; 71020; 80048; 80053; 80061; 81001; 82550; 82553; 82728; 83036; 83540; 83550; 83605; 83735; 84132; 84484; 85025; 85610; 85730; 87040; 87086; 93005; 93458; 96374; 96375; 96376; 99285

== ENCOUNTER 2016-09-28 09:23 | Inpatient (IN) | payer MEDICARE, OTHER ==
[2016-09-28] MEDS ORDERED: FAMOTIDINE 20 MG/2 ML VIAL IV STA (09:43)
[2016-09-28] MEDS ORDERED: METOCLOPRAMIDE 5 MG/ML 2 ML VIAL IVP STA (09:43)
--- NOTE | 2016-09-28 09:46 | ED ---
General Adult HPI - General Stated complaint: Abdominal Pain/Dizziness Time Seen by Provider: 09/28/16 09:24 Source: patient, EMS, RN notes reviewed Mode of arrival: EMS Limitations: no limitations - History of Present Illness Initial comments: Patient is a pleasant 70-year-old female presenting to the emergency department with complaints of near syncope. Patient has had 2 episodes. Patient did abrade her right small finger however denies any discomfort. Patient has felt nauseated and dizzy. No vomiting. Patient does have some abdominal discomfort. Patient has had urinary frequency and dysuria. Patient is concerned regarding a urinary tract infection. No chest pain. Patient did have stent placement done 1 week ago. - Related Data Home Medications Medication Instructions Recorded Confirmed Albuterol Inhaler [Ventolin Hfa 2 puff INHALATION RT-BID PRN 06/02/16 09/28/16 Inhaler] Cilostazol [Pletal] 100 mg PO BID 06/02/16 09/28/16 Sertraline HCl [Zoloft] 100 mg PO DAILY 06/02/16 09/28/16 Nitroglycerin Sl Tabs [Nitrostat] 0.4 mg SUBLINGUAL Q5M PRN 08/04/16 09/28/16 Hydrocodone/Acetaminophen [[place] 1 tab PO Q8HR PRN 09/20/16 09/28/16 10-325] Lisinopril [Zestril] 10 mg PO DAILY 09/20/16 09/28/16 Previous Rx's Medication Instructions Recorded Aspirin 81 mg PO DAILY #90 chew 09/26/16 Clopidogrel [Plavix] 75 mg PO DAILY #90 tab 09/26/16 Ezetimibe [Zetia] 10 mg PO DAILY #90 tab 09/26/16 Gabapentin [Neurontin] 100 mg PO TID #90 cap 09/26/16 Insulin NPH/Reg Insulin 70/30 20 unit SQ BID #5 vial 09/26/16 [humuLIN 70/30 VIAL] Metoprolol Tartrate [Lopressor] 50 mg PO BID #120 tab 09/26/16 Ranitidine HCl [Zantac] 150 mg PO HS #30 tab 09/26/16 Allergies Allergy/AdvReac Type Severity Reaction Status Date / Time Iodinated Contrast Media - Allergy Severe Anaphylaxis Verified 09/28/16 11:09 Oral and [Iodinated Contrast Media - IV Dye] nitrofurantoin Allergy Severe Anaphylaxis Verified 09/28/16 11:09 [From Macrobid] cephalexin monohydrate Allergy Swelling Verified 09/28/16 11:09 [From Keflex] ciprofloxacin Allergy Unknown Verified 09/28/16 11:09 Penicillins Allergy Swelling Verified 09/28/16 11:09 Sulfa (Sulfonamide Allergy Rash/Hives Verified 09/28/16 11:09 Antibiotics) Review of Systems ROS Statement: Those systems with pertinent positive or pertinent negative responses have been documented in the HPI. ROS Other: All systems not noted in ROS Statement are negative. Constitutional: Denies: fever Eyes: Denies: eye pain ENT: Denies: ear pain Respiratory: Denies: dyspnea Cardiovascular: Denies: chest pain Endocrine: Denies: fatigue Gastrointestinal: Reports: abdominal pain, nausea Genitourinary: Reports: dysuria, frequency Skin: Denies: rash Neurological: Reports: other (Dizziness). Denies: headache Past Medical History Past Medical History: Asthma, Coronary Artery Disease (CAD), Chest Pain / Angina , COPD, CVA/TIA, Diabetes Mellitus, Deep Vein Thrombosis (DVT), Hyperlipidemia, Hypertension, Myocardial Infarction (SD), Osteoarthritis (OA), Pneumonia, Renal Disease, Vascular Disorder Additional Past Medical History / Comment(s): COPD/purulent bronchitis and UTI, IDDM type II, DVT bilateral lower legs, cardiac murmur, congenital single right kidney, R nephrolithiasis per 05/2016 U/S, difficulty sleeping, clausterphobia, CVA, neuropathy bilateral hands and feet, PVD, falls. 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 Past Psychological History: Anxiety, Depression Additional Psychological History / Comment(s): pt stated has some mild depression d/t medical problems but not hopeless. Denies any thoughts of harming self or others, no suicidal ideations. Pt recently was placed at [facility]. She has been back home for about 3 weeks. Pt resides in an apartment. She uses a cane or a wheelchair. She does not drive. She has a legal guardian, Angelica Dai. She states her LG has a culinary internship assigned to her and that this culinary internship is suppose to take her to appointments. She feels she needs assistance with housework. She states she has difficulty with washing up d/t being in a wheelchair and is too short for the sink. She cooks minimally. Smoking Status: Current every day smoker Past Alcohol Use History: None Reported Additional Past Alcohol Use History / Comment(s): Patient is a smoker of 2 packs per day for 55 years. She denies any medical marijuana, marijuana, street drug use. She denies any alcohol use or abuse. She has been on disability for long period of time. She is currently living alone. Past Drug Use History: None Reported - Past Family History Mother Family Medical History: Cancer, Diabetes Mellitus, Myocardial Infarction (SD) Additional Family Medical History / Comment(s): from aortic anurysm Father Family Medical History: Renal Disease General Exam Limitations: no limitations General appearance: alert, in no apparent distress Head exam: Present: atraumatic, normocephalic Eye exam: Present: normal appearance, PERRL, EOMI ENT exam: Present: normal oropharynx Neck exam: Present: normal inspection. Absent: tenderness Respiratory exam: Present: normal lung sounds bilaterally Cardiovascular Exam: Present: regular rate, normal rhythm GI/Abdominal exam: Present: soft. Absent: tenderness Extremities exam: Present: normal inspection, other (Left toe amputation). Absent: pedal edema, calf tenderness Neurological exam: Present: alert, CN II-XII intact. Absent: motor sensory deficit Expanded Motor strength exam: RUE: 5, LUE: 5, RLE: 5, LLE: 5 Psychiatric exam: Present: normal affect, normal mood Skin exam: Present: normal color Course Vital Signs 09/28/16 09/28/16 09:42 11:11 Temperature 98.5 F Pulse Rate 78 75 Respiratory 18 18 Rate Blood Pressure 178/81 150/70 O2 Sat by Pulse 96 97 Oximetry EKG Findings - EKG Comments: EKG Findings:: Normal sinus rhythm 75. MT 144. QRS 120. QT 414. QTC or 62. Normal axis. Right bundle branch block. No acute ST change. Medical Decision Making - Medical Decision Making Patient reevaluated and updated. Case was discussed in detail with Dr. Jorge, who will admit his patient. He recommends no further narcotic pain medication and has concerns for her use regarding this. Patient does have chronic pain. Cardiology will be consulted. - Lab Data Result diagrams: 09/28/16 09:40 09/28/16 09:40 Lab Results 09/28/16 09/28/16 09/28/16 Range/Units 09:40 09:40 09:40 WBC 15.8 H (3.8-10.6) k/uL RBC 4.37 (3.80-5.40) m/uL Hgb 12.9 (11.4-16.0) gm/dL Hct 39.4 (34.0-46.0) % MCV 90.1 (80.0-100.0) fL MCH 29.4 (25.0-35.0) pg MCHC 32.7 (31.0-37.0) g/dL RDW 14.7 (11.5-15.5) % Plt Count 382 (150-450) k/uL Neutrophils % 77 % Lymphocytes % 15 % Monocytes % 5 % Eosinophils % 2 % Basophils % 0 % Neutrophils # 12.1 H (1.3-7.7) k/uL Lymphocytes # 2.4 (1.0-4.8) k/uL Monocytes # 0.9 (0-1.0) k/uL Eosinophils # 0.3 (0-0.7) k/uL Basophils # 0.0 (0-0.2) k/uL PT (9.0-12.0) sec INR (<1.1) APTT (22.0-30.0) sec Sodium 138 (137-145) mmol/L Potassium 5.9 H (3.5-5.1) mmol/L Chloride 107 (98-107) mmol/L Carbon Dioxide 24 (22-30) mmol/L Anion Gap 7 mmol/L BUN 36 H (7-17) mg/dL Creatinine 1.12 H (0.52-1.04) mg/dL Est GFR (MDRD) Af Amer 58 (>60 ml/min/1.73 sqM) Est GFR (MDRD) Non-Af 48 (>60 ml/min/1.73 sqM) Glucose 181 H (74-99) mg/dL Calcium 9.5 (8.4-10.2) mg/dL Total Bilirubin 0.5 (0.2-1.3) mg/dL AST 17 (14-36) U/L ALT 24 (9-52) U/L Alkaline Phosphatase 81 (38-126) U/L Total Creatine Kinase 27 L (30-135) U/L CK-MB (CK-2) 2.4 (0.0-2.4) ng/mL CK-MB (CK-2) Rel Index 8.9 Troponin I 0.434 H* (0.000-0.034) ng/mL Total Protein 6.9 (6.3-8.2) g/dL Albumin 3.9 (3.5-5.0) g/dL Amylase 47 (30-110) U/L Lipase 24 (23-300) U/L Urine Color Urine Appearance (Clear) Urine pH (5.0-8.0) Ur Specific Stuart (1.001-1.035) Urine Protein (Negative) Urine Glucose (UA) (Negative) Urine Ketones (Negative) Urine Blood (Negative) Urine Nitrite (Negative) Urine Bilirubin (Negative) Urine Urobilinogen (<2.0) mg/dL Ur Leukocyte Esterase (Negative) Urine RBC (0-5) /hpf Urine WBC (0-5) /hpf Ur Squamous Epith Cells (0-4) /hpf Urine Bacteria (None) /hpf 09/28/16 09/28/16 Range/Units 09:40 10:12 WBC (3.8-10.6) k/uL RBC (3.80-5.40) m/uL Hgb (11.4-16.0) gm/dL Hct (34.0-46.0) % MCV (80.0-100.0) fL MCH (25.0-35.0) pg MCHC (31.0-37.0) g/dL RDW (11.5-15.5) % Plt Count (150-450) k/uL Neutrophils % % Lymphocytes % % Monocytes % % Eosinophils % % Basophils % % Neutrophils # (1.3-7.7) k/uL Lymphocytes # (1.0-4.8) k/uL Monocytes # (0-1.0) k/uL Eosinophils # (0-0.7) k/uL Basophils # (0-0.2) k/uL PT 10.3 (9.0-12.0) sec INR 1.0 (<1.1) APTT 20.6 L (22.0-30.0) sec Sodium (137-145) mmol/L Potassium (3.5-5.1) mmol/L Chloride (98-107) mmol/L Carbon Dioxide (22-30) mmol/L Anion Gap mmol/L BUN (7-17) mg/dL Creatinine (0.52-1.04) mg/dL Est GFR (MDRD) Af Amer (>60 ml/min/1.73 sqM) Est GFR (MDRD) Non-Af (>60 ml/min/1.73 sqM) Glucose (74-99) mg/dL Calcium (8.4-10.2) mg/dL Total Bilirubin (0.2-1.3) mg/dL AST (14-36) U/L ALT (9-52) U/L Alkaline Phosphatase (38-126) U/L Total Creatine Kinase (30-135) U/L CK-MB (CK-2) (0.0-2.4) ng/mL CK-MB (CK-2) Rel Index Troponin I (0.000-0.034) ng/mL Total Protein (6.3-8.2) g/dL Albumin (3.5-5.0) g/dL Amylase (30-110) U/L Lipase (23-300) U/L Urine Color Yellow Urine Appearance Clear (Clear) Urine pH 7.0 (5.0-8.0) Ur Specific Stuart 1.014 (1.001-1.035) Urine Protein 3+ H (Negative) Urine Glucose (UA) Trace H (Negative) Urine Ketones Negative (Negative) Urine Blood Negative (Negative) Urine Nitrite Negative (Negative) Urine Bilirubin Negative (Negative) Urine Urobilinogen <2.0 (<2.0) mg/dL Ur Leukocyte Esterase Negative (Negative) Urine RBC 1 (0-5) /hpf Urine WBC 12 H (0-5) /hpf Ur Squamous Epith Cells <1 (0-4) /hpf Urine Bacteria Occasional H (None) /hpf - Radiology Data Radiology results: report reviewed (Computed tomography scan of the abdomen and pelvis shows nonspecific findings. Some soft tissue thickening right femoral region. Stable descending thoracic aortic aneurysm. Computed tomography scan the brain shows no acute abnormality.), image reviewed (Two-view chest x-ray shows no acute process) Disposition Clinical Impression: Near syncope Disposition: ADMITTED IP TO THIS HOSP Time of Disposition: 11:54
[2016-09-28 10:02] LABS: Basophils % (A) 0 %; CH 30.2; CHCM 33.7; Eosinophils # (A) 0.3 k/uL (0-0.7); Eosinophils % (A) 2 %; HCT 39.4 % (34.0-46.0); HDW 2.69; HGB 12.9 gm/dL (11.4-16.0); Luc # (Auto) 0.12; Luc % (Auto) 1; Lymphocytes # (A) 2.4 k/uL (1.0-4.8); Lymphocytes % (A) 15 %; MCH 29.4 pg (25.0-35.0); MCHC 32.7 g/dL (31.0-37.0); MCV 90.1 fL (80.0-100.0); Mean Platelet Volume 6.6; Monocytes # (A) 0.9 k/uL (0-1.0); Monocytes % (A) 5 %; Neutrophils # (A) 12.1 k/uL (1.3-7.7); Neutrophils % (A) 77 %; RBC 4.37 m/uL (3.80-5.40); RDW 14.7 % (11.5-15.5); WBC 15.8 k/uL (3.8-10.6)
[2016-09-28 10:22] LABS: Calcium 9.5 mg/dL (8.4-10.2); Potassium 5.9 mmol/L (3.5-5.1); Total Bilirubin 0.5 mg/dL (0.2-1.3); Total Protein 6.9 g/dL (6.3-8.2)
[2016-09-28 10:23] LABS: Prothrombin Time 10.3 sec (9.0-12.0)
[2016-09-28 10:33] LABS: Partial Thromboplastin Time 20.6 sec (22.0-30.0)
[2016-09-28 10:36] LABS: Creatine Kinase MB 2.4 ng/mL (0.0-2.4)
[2016-09-28 10:41] LABS: Troponin I 0.434 ng/mL (0.000-0.034)
[2016-09-28 10:58] LABS: Appearance,Urine Clear (Clear); Bacteria,Urine Occasional /hpf; Bilirubin,Urine Negative (Negative); Glucose,Urine (UA) Trace (Negative); Ketones,Urine Negative (Negative); Leukocyte Esterase,Urine Negative (Negative); Nitrite,Urine Negative (Negative); Particle Count 862; Protein,Urine 3+ (Negative); RBC,Urine 1 /hpf (0-5); Specific Gravity,Urine 1.014 (1.001-1.035); Squamous Epithelial Cell,Urine <1 /hpf (0-4); UA Billing (MACRO vs. MICRO) MICRO; Urobilinogen,Urine <2.0 mg/dL (<2.0); WBC,Urine 12 /hpf (0-5)
--- NOTE | 2016-09-28 11:00 | CT ---
EXAMINATION TYPE: CT brain wo con DATE OF EXAM: 09/28/2016 10:48 AM COMPARISON: 07/19/2016 and 07/14/2016. HISTORY: 70-year-old female with syncope TECHNIQUE: Examination was done in axial plane without intravenous contrast. Coronal and sagittal r econstructions performed. CT DLP: 961.0 mGycm Automated exposure control for dose reduction was used. FINDINGS: There is no evidence of acute intracranial hemorrhage, acute ischemic changes, mass, mass-effect, or extra-axial fluid collection. There is no effacement of cerebral sulci or basal subarachnoid cister ns. There is no hydrocephalus. There is no midline shift. Urban-white matter distinction is preserv ed. Mild generalized supratentorial volume loss unchanged from prior exam. There is a focal hypodensity seen within the right paramedian velia that was present in retrospect; an old pontine lacunar infarct is suspected. Orbits and globes are intact. Paranasal sinuses and mastoid air cells well pneumatized. Cerumen withi n the external auditory canals. IMPRESSION: No acute intracranial abnormality seen. Similar mild atrophy. Suspect an old lacunar infarct within t he right paramedian velia that was present on 07/14/2016.
--- NOTE | 2016-09-28 11:07 | XR ---
EXAMINATION TYPE: XR chest 2V DATE OF EXAM: 09/28/2016 10:54 AM COMPARISON: 09/20/2016 TECHNIQUE: PA and lateral views submitted. HISTORY: Syncope FINDINGS: The lungs are clear and there is no pneumothorax, pleural effusion, or focal pneumonia. Ectasia of the thoracic aorta noted. Mild prominence of the upper mediastinum appears stable. Hypertrophic and d egenerative change of the spine IMPRESSION: 1. No acute process. Ectasia of the thoracic aorta noted. Mild prominence of the upper mediastinum ap pears stable.
[2016-09-28] MEDS ORDERED: MORPHINE SULFATE 4 MG/ML SYRINGE IVP STA (11:13)
--- NOTE | 2016-09-28 11:16 | CT ---
EXAMINATION TYPE: CT abdomen pelvis wo con DATE OF EXAM: 09/28/2016 10:48 AM COMPARISON: 06/02/2016 and 10/17/2014. HISTORY: 70-year-old female Generalized abdominal pain CT DLP: 354 mGycm. Automated exposure control for dose reduction was used. TECHNIQUE: Contiguous axial scanning of the abdomen and pelvis without IV contrast. Coronal and sagit ce reconstructions performed. FINDINGS: The heart is normal size with small anterior pericardial effusion measuring 8 mm thick. There is a sm all hiatal hernia. Elongation of the thoracic aorta with mild aneurysm at 3.2 cm of the lower descending thoracic aorta, axial image 8. Some strandy atelectasis in the lower lungs without pleural effusion. Noncontrast appearance of the liver, gallbladder, no gross abnormal body. Left kidney is absent. Panc reas is atrophic. Calcified granulomas within the spleen. There is right-sided nephrolithiasis with numerous, greater than 10, calcifications measuring up to 4 mm. There is an extrarenal pelvis without convincing ureteral calculus. Low-density thickening of the right adrenal gland is similar. Low-density nodule measuring 2.7 cm and the left adrenal gland is stable suggesting a benign adrenal adenoma. No dilated small bowel, free fluid, or free air. Tiny fatty umbilical hernia. There is mild stool burden without pericolonic inflammatory change. Numerous pelvic phleboliths. Moderate atherosclerotic calcifications throughout the abdominal aorta and iliac arteries. Fusiform e ctasia of the infrarenal abdominal aorta measuring up to 2.4 cm. Bilateral iliac artery stents are pr esent. Patency cannot be assessed on noncontrast study. There is moderate circumferential bladder wall thickening. Some surgical clips noted at the left inguinal region is a focal density thickening overlying the rig ht common femoral vessels just below the groin measuring 3.5 x 1.4 cm, axial image 85 and coronal corey ge 27 of uncertain etiology but new from prior exam. Bones: Degenerative changes at the hips and a degenerated levoconvex scoliosis. No osseous destructiv e process. IMPRESSION: 1. Nonspecific small anterior pericardial effusion (8 mm thick). 2. Stable mild aneurysm lower descending thoracic aorta (3.2 cm). 3. Absent left kidney. Redemonstrated right-sided nephrolithiasis measuring up to 4 mm. No obstructi ng stone seen. 4. Some new focal soft tissue thickening measuring 3.5 cm overlying the right common femoral vessels . Correlate with physical exam findings. Findings could represent a small subcutaneous hematoma in th e event that there was a recent vascular catheterization. Clinical correlation recommended. 5. Moderate circumferential bladder wall thickening could represent chronic bladder wall hypertrophy or cystitis. 6. Stable 2.7 cm low density nodule left adrenal gland suggestive of a adrenal adenoma. Thickening o f the right adrenal gland is also unchanged.
[2016-09-28] MEDS ORDERED: DIPH,PERTUS(ACELL)TETVAC-LF 0.5 ML VIAL IM ONE (12:04)
[2016-09-28] MEDS ORDERED: MECLIZINE 25 MG TAB PO STA (12:04)
[2016-09-28] MEDS ORDERED: ALBUTEROL NEBULIZED 2.5 MG/3 ML INHALATION PRN (14:25)
[2016-09-28] MEDS: HYDROcodone/APAP 10-325MG 1 EACH TAB PO PRN ×2 (16:05→23:36)
[2016-09-28] MEDS: GABAPENTIN 100 MG CAP PO SCH ×2 (16:06→21:51)
[2016-09-28 16:57] LABS: Glucose,Whole Blood 230 mg/dL (75-99)
[2016-09-28 17:09] LABS: Creatine Kinase MB 1.9 ng/mL (0.0-2.4)
[2016-09-28 17:12] LABS: Troponin I 0.351 ng/mL (0.000-0.034)
[2016-09-28] MEDS: INSULIN LISPRO (humaLOG) 300 UNIT/3 ML VIAL SQ SCH ×2 (17:39→21:50)
[2016-09-28] MEDS ORDERED: SODIUM POLYSTYRENE SULFONATE 15 GM/60 ML BOTTLE PO STA (17:46)
[2016-09-28 20:53] LABS: Glucose,Whole Blood 221 mg/dL (75-99)
[2016-09-28 21:48] LABS: Creatine Kinase MB 1.8 ng/mL (0.0-2.4)
[2016-09-28] MEDS: CILOSTAZOL 100 MG TAB PO SCH (21:50)
[2016-09-28] MEDS: INSULIN NPH/REG INSULIN 70/30 300 UNIT/3 ML VIAL SQ SCH (21:50)
[2016-09-28 21:51] LABS: Troponin I 0.285 ng/mL (0.000-0.034)
[2016-09-28] MEDS: METOPROLOL TARTRATE 50 MG TAB PO SCH (21:51)
[2016-09-29 06:25] LABS: Potassium 5.2 mmol/L (3.5-5.1)
[2016-09-29 06:34] LABS: Glucose,Whole Blood 64 mg/dL (75-99)
[2016-09-29] MEDS: INSULIN LISPRO (humaLOG) 300 UNIT/3 ML VIAL SQ SCH ×4 (06:35→22:43)
[2016-09-29 06:56] LABS: Glucose,Whole Blood 69 mg/dL (75-99)
[2016-09-29 07:51] LABS: Hemoglobin A1C 7.4 % (4.2-6.1)
[2016-09-29 08:40] LABS: Glucose,Whole Blood 186 mg/dL (75-99)
[2016-09-29] MEDS ORDERED: ASPIRIN 325 MG TAB PO SCH (09:00)
[2016-09-29] MEDS: GABAPENTIN 100 MG CAP PO SCH ×3 (09:08→20:50)
[2016-09-29] MEDS: HYDROcodone/APAP 10-325MG 1 EACH TAB PO PRN ×2 (09:09→17:17)
[2016-09-29] MEDS: EZETIMIBE 10 MG TAB PO SCH (09:10)
[2016-09-29] MEDS: LISINOPRIL 10 MG TAB PO SCH (09:10)
[2016-09-29] MEDS: CILOSTAZOL 100 MG TAB PO SCH ×2 (09:10→20:50)
[2016-09-29] MEDS: CLOPIDOGREL 75 MG TAB PO SCH (09:10)
[2016-09-29] MEDS: SERTRALINE 100 MG TAB PO SCH (09:11)
[2016-09-29] MEDS: METOPROLOL TARTRATE 50 MG TAB PO SCH ×2 (09:11→20:50)
[2016-09-29] MEDS: INSULIN NPH/REG INSULIN 70/30 300 UNIT/3 ML VIAL SQ SCH ×2 (09:15→20:50)
--- NOTE | 2016-09-29 09:37 | P.CRDCN ---
History of Present Illness Consult date: 09/29/16 Requesting physician: Mallory Hernandez Consult reason: sycope Chief complaint: Syncope History of present illness: This is a pleasant 70-year-old female with known history of diabetes, hypertension, hyperlipidemia, COPD, prior CVA, peripheral vascular disease, coronary artery disease with prior stent placements. Most recently the patient was in the hospital earlier this month at which time she underwent angioplasty with stenting of the LAD. Patient was discharged home and she states that she has been taking her aspirin and Plavix on a regular basis however she has not been taking all of her other medications regularly because she's been having symptoms of feeling lightheaded. He only like everything was spinning, she became diaphoretic and passed out. According to her she had 2 of these episodes prior to coming to the hospital. Last evening the patient again had another episode, she states that she had some pressure and heaviness in the chest just prior to the episode happening. She also states that she feels these symptoms mostly when she goes from a sitting to a standing position. EKG performed on arrival here showed a normal sinus rhythm with a right bundle branch block pattern and no acute changes noted. Chest x-ray does not reveal any acute process. CAT scan of the brain does not reveal any acute abnormality. Suspect old bassoon or infarct. 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 Some new focal soft tissue thickening measuring 3.5 cm overlying the right common femoral vessels, findings of which could represent a small hematoma. Stable 2.7 cm low density nodule at the left adrenal gland noted. Blood pressure on arrival to the emergency room 178/80, heart rate in the 70s. 96% on 2 L of oxygen. Laboratory data, WBC 15.8, hemoglobin 12.9, potassium 5.9 yesterday, 5.2 this morning. BUN 36, creatinine 1.1. Blood sugar on arrival 221. Troponins 0.43, 0.35, 0.28. At the time of my examination this morning, patient denies any dizziness or lightheadedness, no chest discomfort. Past Medical History Past Medical History: Asthma, Coronary Artery Disease (CAD), Chest Pain / Angina , COPD, CVA/TIA, Diabetes Mellitus, Deep Vein Thrombosis (DVT), Hyperlipidemia, Hypertension, Myocardial Infarction ([place]), Osteoarthritis (OA), Pneumonia, Renal Disease, Vascular Disorder Additional Past Medical History / Comment(s): Pt recently admitted to [facility] on 09/20/16 with NSTEMI, hypertensive emergency and had PCI with stent. Other hx: COPD/purulent bronchitis and UTI, IDDM type II, DVT bilateral lower legs, cardiac murmur, congenital single right kidney, R nephrolithiasis per 05/2016 [place] , CKD stage III, difficulty sleeping, clausterphobia, CVA with chronic R facial droop, neuropathy bilateral hands and feet, PVD, falls. 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 Date of Last Stent Placement:: 09/21/16 Past Psychological History: Anxiety, Depression Additional Psychological History / Comment(s): pt stated has some mild depression d/t medical problems but not hopeless. Denies any thoughts of harming self or others, no suicidal ideations. Pt recently was placed at [facility]. She has been back home for about 4 weeks. Pt resides in an apartment. She uses a cane or a wheelchair. She does not drive. She has a legal guardian, Angelica Dai. Engine Host[employer] contacted who states she is wanting pt to discharge to longterm this time. Last discharge pt went home and was to have home care which did not have a chance to establish yet. Angelica states pt did not like [facility]. Pt states her LG has a bus van driver assigned to her and that this bus van driver (Em) takes her to appointments. She feels she needs assistance with housework. She states she has difficulty with washing up d/t being in a wheelchair and is too short for the sink. She cooks minimally. She would like a nebulizer. Smoking Status: Current every day smoker Past Alcohol Use History: None Reported Additional Past Alcohol Use History / Comment(s): Patient is a smoker of 2 packs per day for 55 years. She denies any medical marijuana, marijuana, street drug use. She denies any alcohol use or abuse. She has been on disability for long period of time. She is currently living alone. Past Drug Use History: None Reported - Past Family History Mother Family Medical History: Cancer, Diabetes Mellitus, Myocardial Infarction ([place]) Additional Family Medical History / Comment(s): from aortic anurysm Father Family Medical History: Renal Disease Medications and Allergies Home Medications Medication Instructions Recorded Confirmed Type Albuterol Inhaler [Ventolin Hfa 2 puff INHALATION RT-BID PRN 06/02/16 09/28/16 History Inhaler] Cilostazol [Pletal] 100 mg PO BID 06/02/16 09/28/16 History Sertraline HCl [Zoloft] 100 mg PO DAILY 06/02/16 09/28/16 History Nitroglycerin Sl Tabs [Nitrostat] 0.4 mg SUBLINGUAL Q5M PRN 08/04/16 09/28/16 History Hydrocodone/Acetaminophen [[place] 1 tab PO Q8HR PRN 09/20/16 09/28/16 History 10-325] Lisinopril [Zestril] 10 mg PO DAILY 09/20/16 09/28/16 History Allergies Allergy/AdvReac Type Severity Reaction Status Date / Time Iodinated Contrast Media - Allergy Severe Anaphylaxis Verified 09/28/16 11:09 Oral and [Iodinated Contrast Media - IV Dye] nitrofurantoin Allergy Severe Anaphylaxis Verified 09/28/16 11:09 [From Macrobid] cephalexin monohydrate Allergy Swelling Verified 09/28/16 11:09 [From Keflex] ciprofloxacin Allergy Unknown Verified 09/28/16 11:09 Penicillins Allergy Swelling Verified 09/28/16 11:09 Sulfa (Sulfonamide Allergy Rash/Hives Verified 09/28/16 11:09 Antibiotics) Physical Exam Vitals: Vital Signs Temp Pulse Pulse Resp BP BP BP 09/29/16 08:00 97.7 F 65 18 112/69 09/29/16 04:00 98.1 F 68 16 108/60 09/29/16 00:00 98.3 F 80 16 155/81 09/28/16 20:00 98.3 F 71 16 149/69 09/28/16 18:40 81 09/28/16 16:00 97.7 F 72 18 121/67 09/28/16 14:03 97.5 F L 71 16 149/80 09/28/16 13:20 98.5 F 72 18 151/66 09/28/16 12:43 74 18 142/63 BP BP BP Pulse Ox 09/29/16 08:00 97 09/29/16 04:00 95 09/29/16 00:00 95 09/28/16 20:00 94 L 09/28/16 18:40 124/75 133/66 145/65 09/28/16 16:00 96 09/28/16 14:03 96 09/28/16 13:20 94 L 09/28/16 12:43 93 L Intake and Output 09/28/16 09/29/16 09/29/16 22:59 06:59 14:59 Intake Total 180 100 360 Balance 180 100 360 Intake: Oral 180 100 360 Other: Voiding Method Toilet Toilet # Voids 0 Weight 64.1 kg PHYSICAL EXAMINATION: HEENT: Head is atraumatic, normocephalic. Pupils equal, round. Neck is supple. There is no elevated jugular venous pressure. HEART EXAMINATION: Heart S1, S2 normal. No murmur or gallop heard. CHEST EXAMINATION: Lungs are clear with mild diminished air entry to posterior bases. ABDOMEN: Soft, nontender. Bowel sounds are heard. No organomegaly noted. EXTREMITIES: 1+ peripheral pulses with no evidence of peripheral edema and no calf tenderness noted. NEUROLOGIC patient is awake, alert and oriented -3. Results 09/28/16 09:40 09/29/16 05:34 Cardiac Enzymes 09/28/16 09/28/16 Range/Units 16:06 20:59 CK-MB (CK-2) 1.9 1.8 (0.0-2.4) ng/mL Troponin I 0.351 H* 0.285 H* (0.000-0.034) ng/mL Lipids 09/29/16 Range/Units 05:34 Triglycerides 226 H (<150) mg/dL Cholesterol 181 (<200) mg/dL HDL Cholesterol 52 (40-60) mg/dL Comprehensive Metabolic Panel 09/29/16 Range/Units 05:34 Potassium 5.2 H (3.5-5.1) mmol/L Current Medications Generic Name Dose Route Start Last Admin Trade Name Freq PRN Reason Stop Dose Admin Hydrocodone Bitart/Acetaminophen 1 each 09/28/16 14:25 09/29/16 09:09 [place] 10 PO 1 each Q8HR PRN Administration Pain Albuterol Sulfate 2.5 mg 09/28/16 14:25 Ventolin Nebulized INHALATION RT-BID PRN Shortness Of Breath Aspirin 325 mg 09/29/16 09:00 09/29/16 09:08 Aspirin PO 325 mg DAILY VINH Administration Cilostazol 100 mg 09/28/16 21:00 09/29/16 09:10 Pletal PO 100 mg BID IVNH Administration Clopidogrel Bisulfate 75 mg 09/29/16 09:00 09/29/16 09:10 Plavix PO 75 mg DAILY [facility] Administration Ezetimibe 10 mg 09/29/16 09:00 09/29/16 09:10 Zetia PO 10 mg DAILY [facility] Administration Famotidine 20 mg 09/29/16 21:00 Pepcid PO HS VINH Gabapentin 100 mg 09/28/16 16:00 09/29/16 09:08 Neurontin PO 100 mg TID [facility] Administration Insulin Human Isoph/Insulin Regular 20 unit 09/28/16 21:00 09/29/16 09:15 Humulin 70/30 Vial SQ 20 unit BID [facility] Administration Insulin Human Lispro 0 unit 09/28/16 17:30 09/29/16 06:35 Humalog SQ Not Given ACHS [facility] Protocol Lisinopril 10 mg 09/29/16 09:00 09/29/16 09:10 Zestril PO 10 mg DAILY [facility] Administration Metoprolol Tartrate 50 mg 09/28/16 21:00 09/29/16 09:11 Lopressor PO 50 mg BID [facility] Administration Nitroglycerin 0.4 mg 09/28/16 11:54 Nitrostat SUBLINGUAL Q5M PRN Chest Pain Sertraline HCl 100 mg 09/29/16 09:00 09/29/16 09:11 Zoloft PO 100 mg DAILY [facility] Administration Intake and Output 09/28/16 09/29/16 09/29/16 22:59 06:59 14:59 Intake Total 180 100 360 Balance 180 100 360 Intake: Oral 180 100 360 Other: Voiding Method Toilet Toilet # Voids 0 Weight 64.1 kg 09/29/16 05:34 EKG Interpretations (text) EKG shows normal sinus rhythm with a right bundle branch block pattern, nonspecific ST-T wave changes. Assessment and Plan Plan: Aspirin and plan #1 syncope #2 history of coronary artery disease and prior myocardial infarction with recent angioplasty and stenting of the LAD 3 hypertension #4 hyperlipidemia #5 diabetes #6 chronic renal disease #7 prior DVT #8 prior CVA #9 evidence of small pericardial effusion on CAT scan of the chest #10, troponins, appeared to be on a downward trend from recent admission. Plan Repeat an echocardiogram with Doppler study to assess pericardial effusion. We will also obtain orthostatic blood pressure and heart rate every shift. Continue aspirin 81 mg daily, continue Plavix, Zetia, lisinopril, metoprolol tartrate. Further recommendations to follow. DNP note has been reviewed, I agree with a documented findings and plan of care. Patient was seen and examined.
[2016-09-29 11:41] LABS: Glucose,Whole Blood 90 mg/dL (75-99)
[2016-09-29] MEDS ORDERED: Potassium Replacement Protocol 1 EACH MISC MISCELLANE PRN (11:58)
[2016-09-29] MEDS ORDERED: Magnesium Replacement Protocol 1 EACH MISC MISCELLANE PRN (11:58)
--- NOTE | 2016-09-29 12:30 | ECHOF ---
Referral Reason:limited study, assess for pericardial eff MEASUREMENTS -------- HEIGHT: 152.4 cm WEIGHT: 64.0 kg BP: 112/69 FINDINGS -------- Sinus rhythm. Limited Study to Eval. Pericardial Effusion. Overall left ventricular systolic function is low-normal with, an EF between 50 - 55 %. Echo free space may represent effusion or a pericardial fat pad. A very small anterior effusion cannot be excluded. There is a small pericardial effusion is located near the right ventricle. CONCLUSIONS -------- 1. Limited Study to Eval. Pericardial Effusion. 2. Overall left ventricular systolic function is low-normal with, an EF between 50 - 55 %. 3. Echo free space may represent effusion or a pericardial fat pad. DEPUTY CHIEF SHERIFF: Kimmy Churchill RDCS
[2016-09-29] MEDS: NITROGLYCERIN SL TABS 0.4 MG TAB SUBLINGUAL PRN ×2 (14:15→14:21)
[2016-09-29] MEDS: SODIUM CHLORIDE 0.9% 1,000 ML IV SCH (14:17)
--- NOTE | 2016-09-29 15:14 | P.HPIM ---
History of Present Illness H&P Date: 09/29/16 This is a pleasant 70-year-old female with known history of diabetes, hypertension, hyperlipidemia, COPD, prior CVA, peripheral vascular disease, coronary artery disease with prior stent placements. Most recently the patient was in the hospital earlier this month at which time she underwent angioplasty with stenting of the LAD. Patient was discharged home and she states that she has been taking her aspirin and Plavix on a regular basis however she has not been taking all of her other medications regularly because she's been having symptoms of feeling lightheaded. He only like everything was spinning, she became diaphoretic and passed out. According to her she had 2 of these episodes prior to coming to the hospital. Patient is complaining of persistent epigastric discomfort and acid reflux. She said that she tried Protonix, Prilosec, Zantac, and Pepcid in the past with minimal relief. Review of Systems Review of system: 14 points review of systems were obtained and were negative except to what were mentioned in the HPI. Past Medical History Past Medical History: Asthma, Coronary Artery Disease (CAD), Chest Pain / Angina , COPD, CVA/TIA, Diabetes Mellitus, Deep Vein Thrombosis (DVT), Hyperlipidemia, Hypertension, Myocardial Infarction ([place]), Osteoarthritis ([place]), Pneumonia, Renal Disease, Vascular Disorder Additional Past Medical History / Comment(s): Pt recently admitted to [facility] on 09/20/16 with NSTEMI, hypertensive emergency and had PCI with stent. Other hx: COPD/purulent bronchitis and UTI, IDDM type II, DVT bilateral lower legs, cardiac murmur, congenital single right kidney, R nephrolithiasis per 05/2016 [place] , CKD stage III, difficulty sleeping, clausterphobia, CVA with chronic R facial droop, neuropathy bilateral hands and feet, PVD, falls. 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 Date of Last Stent Placement:: 09/21/16 Past Psychological History: Anxiety, Depression Additional Psychological History / Comment(s): pt stated has some mild depression d/t medical problems but not hopeless. Denies any thoughts of harming self or others, no suicidal ideations. Pt recently was placed at [facility]. She has been back home for about 4 weeks. Pt resides in an apartment. She uses a cane or a wheelchair. She does not drive. She has a legal guardian, Angelica Dai. Web Master contacted LG who states she is wanting pt to discharge to custodial this time. Last discharge pt went home and was to have home care which did not have a chance to establish yet. Angelica states pt did not like [facility]. Pt states her LG has a senior j2ee developer assigned to her and that this senior j2ee developer (Em) takes her to appointments. She feels she needs assistance with housework. She states she has difficulty with washing up d/t being in a wheelchair and is too short for the sink. She cooks minimally. She would like a nebulizer. Smoking Status: Current every day smoker Past Alcohol Use History: None Reported Additional Past Alcohol Use History / Comment(s): Patient is a smoker of 2 packs per day for 55 years. She denies any medical marijuana, marijuana, street drug use. She denies any alcohol use or abuse. She has been on disability for long period of time. She is currently living alone. Past Drug Use History: None Reported - Past Family History Mother Family Medical History: Cancer, Diabetes Mellitus, Myocardial Infarction ([place]) Additional Family Medical History / Comment(s): from aortic anurysm Father Family Medical History: Renal Disease Medications and Allergies Home Medications Medication Instructions Recorded Confirmed Type Albuterol Inhaler [Ventolin Hfa 2 puff INHALATION RT-BID PRN 06/02/16 09/28/16 History Inhaler] Cilostazol [Pletal] 100 mg PO BID 06/02/16 09/28/16 History Sertraline HCl [Zoloft] 100 mg PO DAILY 06/02/16 09/28/16 History Nitroglycerin Sl Tabs [Nitrostat] 0.4 mg SUBLINGUAL Q5M PRN 08/04/16 09/28/16 History Hydrocodone/Acetaminophen [[place] 1 tab PO Q8HR PRN 09/20/16 09/28/16 History 10-325] Lisinopril [Zestril] 10 mg PO DAILY 09/20/16 09/28/16 History Allergies Allergy/AdvReac Type Severity Reaction Status Date / Time Iodinated Contrast Media - Allergy Severe Anaphylaxis Verified 09/28/16 11:09 Oral and [Iodinated Contrast Media - IV Dye] nitrofurantoin Allergy Severe Anaphylaxis Verified 09/28/16 11:09 [From Macrobid] cephalexin monohydrate Allergy Swelling Verified 09/28/16 11:09 [From Keflex] ciprofloxacin Allergy Unknown Verified 09/28/16 11:09 Penicillins Allergy Swelling Verified 09/28/16 11:09 Sulfa (Sulfonamide Allergy Rash/Hives Verified 09/28/16 11:09 Antibiotics) Physical Exam Vitals: Vital Signs Temp Pulse Resp BP BP BP BP 09/29/16 11:45 148/81 118/65 09/29/16 11:42 98.3 F 74 18 146/87 09/29/16 08:00 97.7 F 65 18 112/69 09/29/16 04:00 98.1 F 68 16 108/60 09/29/16 00:00 98.3 F 80 16 155/81 09/28/16 20:00 98.3 F 71 16 149/69 09/28/16 18:40 81 124/75 133/66 09/28/16 16:00 97.7 F 72 18 121/67 BP Pulse Ox 09/29/16 11:45 146/87 09/29/16 11:42 95 09/29/16 08:00 97 09/29/16 04:00 95 09/29/16 00:00 95 09/28/16 20:00 94 L 09/28/16 18:40 145/65 09/28/16 16:00 96 Intake and Output 09/29/16 09/29/16 09/29/16 06:59 14:59 22:59 Intake Total 100 650 Output Total 400 Balance 100 250 Intake: Intake, IV Titration 50 Amount Sodium Chloride 0.9% 1, 50 000 ml @ 50 mls/hr IV . Q20H VINH Rx#:[id number] Oral 100 600 Output: Urine 400 Other: Voiding Method Toilet # Voids 1 Weight 64.1 kg General: The patient is awake and alert, in no distress Eye: there is normal conjunctiva bilaterally. Neck: The neck is supple, there is no JVD. Cardiovascular: Normal S1-S2, no S3-S4, no murmurs. Respiratory: Lungs clear to auscultation bilaterally Gastrointestinal: Abdomen is soft, nontender Musculoskeletal: There is no pedal edema. Neurological:. Speech is normal. Skin: Skin is warm and dry Results CBC & Chem 7: 09/28/16 09:40 09/29/16 05:34 Labs: Abnormal Lab Results - Last 24 Hours (Table) 09/28/16 09/28/16 09/28/16 Range/Units 16:06 16:06 16:55 Potassium (3.5-5.1) mmol/L POC Glucose (mg/dL) 230 H (75-99) mg/dL Hemoglobin A1c 7.4 H (4.2-6.1) % Total Creatine Kinase 25 L (30-135) U/L Troponin I 0.351 H* (0.000-0.034) ng/mL Triglycerides (<150) mg/dL 09/28/16 09/28/16 09/29/16 Range/Units 20:48 20:59 05:34 Potassium 5.2 H (3.5-5.1) mmol/L POC Glucose (mg/dL) 221 H (75-99) mg/dL Hemoglobin A1c (4.2-6.1) % Total Creatine Kinase 21 L (30-135) U/L Troponin I 0.285 H* (0.000-0.034) ng/mL Triglycerides 226 H (<150) mg/dL 09/29/16 09/29/16 09/29/16 Range/Units 06:29 06:54 08:36 Potassium (3.5-5.1) mmol/L POC Glucose (mg/dL) 64 L 69 L 186 H (75-99) mg/dL Hemoglobin A1c (4.2-6.1) % Total Creatine Kinase (30-135) U/L Troponin I (0.000-0.034) ng/mL Triglycerides (<150) mg/dL Thrombosis Risk Factor Assmnt - Choose All That Apply Any of the Below Risk Factors Present?: Yes Each Factor Represents 1 point: Abnormal pulmonary function (COPD), Obesity ( BMI >25) Other Risk Factors: Yes Each Risk Factor Represents 2 Points: Age 61-74 years Other congenital or acquired thrombophilia - If yes, enter type in comment: No Thrombosis Risk Factor Assessment Total Risk Factor Score: 4 Thrombosis Risk Factor Assessment Level: Moderate Risk Assessment and Plan Plan: 1. Coronary artery disease status post drug-eluting stent to proximal LAD during last admission. Patient was seen and evaluated by cardiology. Limited echocardiogram done during this admission reviewed. 2. Dizziness: May be attributed to mild orthostatic hypotension. I will continue gentle IV fluid hydration and recheck orthostatics in the morning. 3. Type 2 diabetes mellitus insulin-dependent 4. History of CVA with chronic right-sided facial droop 5. Coronary artery disease with history of myocardial infarction 6. Stage IIIB chronic kidney disease 7. Non-thrombotic troponin leak most likely secondary to uncontrolled systolic blood pressure 8. Acute kidney injury, mild 9. Persistent epigastric pain with GERD: Failed multiple regimen. I will consult gastroenterology for evaluation for possible EGD
[2016-09-29 16:41] LABS: Glucose,Whole Blood 115 mg/dL (75-99)
[2016-09-29] MEDS: HEPARIN SODIUM,PORCINE 5,000 UNIT/ML 1 ML VIAL SQ SCH (20:49)
[2016-09-29] MEDS: FAMOTIDINE 20 MG TAB PO SCH (20:50)
[2016-09-29 21:14] LABS: Glucose,Whole Blood 232 mg/dL (75-99)
[2016-09-29] MEDS: ZOLPIDEM 5 MG TAB PO PRN (23:44)
[2016-09-30] MEDS: HYDROcodone/APAP 10-325MG 1 EACH TAB PO PRN ×4 (00:19→22:02)
[2016-09-30 06:10] LABS: Glucose,Whole Blood 84 mg/dL (75-99)
[2016-09-30] MEDS: INSULIN LISPRO (humaLOG) 300 UNIT/3 ML VIAL SQ SCH ×4 (06:25→21:46)
[2016-09-30 06:32] LABS: Basophils % (A) 0 %; CH 30.2; CHCM 33.1; Eosinophils # (A) 0.3 k/uL (0-0.7); Eosinophils % (A) 3 %; HCT 30.8 % (34.0-46.0); HDW 2.61; HGB 10.2 gm/dL (11.4-16.0); Luc # (Auto) 0.14; Luc % (Auto) 1; Lymphocytes # (A) 3.2 k/uL (1.0-4.8); Lymphocytes % (A) 31 %; MCH 30.4 pg (25.0-35.0); MCHC 33.1 g/dL (31.0-37.0); MCV 91.7 fL (80.0-100.0); Mean Platelet Volume 6.7; Monocytes # (A) 0.6 k/uL (0-1.0); Monocytes % (A) 6 %; Neutrophils # (A) 6.1 k/uL (1.3-7.7); Neutrophils % (A) 59 %; RBC 3.35 m/uL (3.80-5.40); RDW 14.5 % (11.5-15.5); WBC 10.4 k/uL (3.8-10.6); WBC (Perox) 10.39
[2016-09-30 06:47] LABS: Calcium 8.5 mg/dL (8.4-10.2); Magnesium 1.7 mg/dL (1.6-2.3)
--- NOTE | 2016-09-30 09:18 | P.CONS ---
History of Present Illness - Reason for Consult Consult date: 09/30/16 Epigastric pain Requesting physician: Mallory Hernandez - History of Present Illness 70-year-old female patient Dr. Hernandez recently hospitalized 2 weeks ago with non-ST elevated NM status post PCI stent proximal LAD 09/23/2016 maintained on aspirin Plavix, CAD, hypertension, GERD, nephrolithiasis with absent left kidney , diabetes mellitus, hyperlipidemia, CVA, chronic kidney disease, PVD, and COPD. Patient presents with chest pressure or heaviness/persistent severe epigastric pain that she describes knifelike sometimes burning as well as right lower abdominal discomfort. Denies hematemesis Lorenz's or melena. She has tried multiple [id number] antiacids with minimal relief. Last EGD several years ago. Colonoscopy her memory was within the last year and unremarkable. Denies alcohol excessive NSAID or aspirin usage. Hemoglobin 10.2. MCV 91. Platelet 287. White count 15.8 currently 10.4. INR 1.0. BUN 36. Creatinine 1.1. Troponin 0.3-0.4. Iron indices 09/23/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 Focal soft tissue thickening overlying the right common femoral vessels possible small subcutaneous hematoma in the event of a recent vascular catheterization. Review of Systems Constitutional: Denies fever, chills, sweats, weight gain, or loss. HEENT: Negative for migraines, blurred vision or loss, earaches, drainage, tinnitus, oral mucosal lesions, dysphagia, or odynophagia. CARDIAC: NM. CAD. Hypertension. Negative for chest pain, arrhythmias, or palpitation. RESPIRATORY: Negative for shortness of breath, hemoptysis, cough, or sputum production. GI: See HPI for pertinent findings. : Negative for hematuria, urgency, frequency, polyuria, or dysuria. GYNc: Negative vaginal discharge. MUSCULOSKELETAL: Negative for muscle aches, swelling, arthritis, and arthralgias. NEUROLOGIC: History of CVA. Nephrology: Chronic kidney disease. ENDOCRINE: Negative for thyroid problems. Diabetes mellitus SKIN: Negative for rash or itching. PSYCHIATRIC: Negative history for depression and anxiety All systems: negative (See HPI) Past Medical History Past Medical History: Asthma, Coronary Artery Disease (CAD), Chest Pain / Angina , COPD, CVA/TIA, Diabetes Mellitus, Deep Vein Thrombosis (DVT), Hyperlipidemia, Hypertension, Myocardial Infarction (NM), Osteoarthritis (OA), Pneumonia, Renal Disease, Vascular Disorder Additional Past Medical History / Comment(s): Pt recently admitted to [facility] on 09/20/16 with NSTEMI, hypertensive emergency and had PCI with stent. Other hx: COPD/purulent bronchitis and UTI, IDDM type II, DVT bilateral lower legs, cardiac murmur, congenital single right kidney, R nephrolithiasis per 05/2016 U/S , CKD stage III, difficulty sleeping, clausterphobia, CVA with chronic R facial droop, neuropathy bilateral hands and feet, PVD, falls. Last Myocardial Infarction Date:: 09/20/16 History of Any Multi-Drug Resistant Organisms: None Reported Past Surgical History: Appendectomy, Heart Catheterization, Heart Catheterization With Stent, Hysterectomy Additional Past Surgical History / Comment(s): 09/21/2016 PCI with stent to LAD, lt femoral-pop bypass and amputation of 2nd, 3rd and 4th toes Past Anesthesia/Blood Transfusion Reactions: No Reported Reaction Additional Past Anesthesia/Blood Transfusion Reaction / Comm: Pt has clausterphobia. Date of Last Stent Placement:: 09/21/16 Past Psychological History: Anxiety, Depression Additional Psychological History / Comment(s): pt stated has some mild depression d/t medical problems but not hopeless. Denies any thoughts of harming self or others, no suicidal ideations. Pt recently was placed at [facility]. She has been back home for about 4 weeks. Pt resides in an apartment. She uses a cane or a wheelchair. She does not drive. She has a legal guardian, Angelica Dai. Pl[employer] Sheets Finishing Supervisor contacted who states she is wanting pt to discharge to skilled nursing this time. Last discharge pt went home and was to have home care which did not have a chance to establish yet. Angelica states pt did not like [facility]. Pt states her LG has a controls designer assigned to her and that this controls designer (Em) takes her to appointments. She feels she needs assistance with housework. She states she has difficulty with washing up d/t being in a wheelchair and is too short for the sink. She cooks minimally. She would like a nebulizer. Smoking Status: Current every day smoker Past Alcohol Use History: None Reported Additional Past Alcohol Use History / Comment(s): Patient is a smoker of 2 packs per day for 55 years. She denies any medical marijuana, marijuana, street drug use. She denies any alcohol use or abuse. She has been on disability for long period of time. She is currently living alone. Past Drug Use History: None Reported - Past Family History Mother Family Medical History: Cancer, Diabetes Mellitus, Myocardial Infarction (NM) Additional Family Medical History / Comment(s): from aortic anurysm Father Family Medical History: Renal Disease Medications and Allergies Home Medications Medication Instructions Recorded Confirmed Type Albuterol Inhaler [Ventolin Hfa 2 puff INHALATION RT-BID PRN 06/02/16 09/28/16 History Inhaler] Cilostazol [Pletal] 100 mg PO BID 06/02/16 09/28/16 History Sertraline HCl [Zoloft] 100 mg PO DAILY 06/02/16 09/28/16 History Nitroglycerin Sl Tabs [Nitrostat] 0.4 mg SUBLINGUAL Q5M PRN 08/04/16 09/28/16 History Hydrocodone/Acetaminophen [[place] 1 tab PO Q8HR PRN 09/20/16 09/28/16 History 10-325] Lisinopril [Zestril] 10 mg PO DAILY 09/20/16 09/28/16 History Allergies Allergy/AdvReac Type Severity Reaction Status Date / Time Iodinated Contrast Media - Allergy Severe Anaphylaxis Verified 09/28/16 11:09 Oral and [Iodinated Contrast Media - IV Dye] nitrofurantoin Allergy Severe Anaphylaxis Verified 09/28/16 11:09 [From Macrobid] cephalexin monohydrate Allergy Swelling Verified 09/28/16 11:09 [From Keflex] ciprofloxacin Allergy Unknown Verified 09/28/16 11:09 Penicillins Allergy Swelling Verified 09/28/16 11:09 Sulfa (Sulfonamide Allergy Rash/Hives Verified 09/28/16 11:09 Antibiotics) Physical Exam Vitals: Vital Signs Temp Pulse Resp BP BP BP BP 09/30/16 04:00 97 F L 66 16 138/60 09/30/16 00:00 97 F L 82 16 156/82 09/29/16 20:00 97 F L 95 16 150/82 09/29/16 16:00 99.3 F 82 18 99/57 09/29/16 11:45 148/81 118/65 09/29/16 11:42 98.3 F 74 18 146/87 BP Pulse Ox 09/30/16 04:00 95 09/30/16 00:00 98 09/29/16 20:00 96 09/29/16 16:00 93 L 09/29/16 11:45 146/87 09/29/16 11:42 95 Intake and Output 09/29/16 09/30/16 09/30/16 22:59 06:59 14:59 Intake Total 790 200 Output Total 550 Balance 240 200 Intake: IV 550 200 Sodium Chloride 0.9% 1, 550 200 000 ml @ 50 mls/hr IV . Q20H [facility] Rx#:[id number] Oral 240 Output: Urine 550 Other: Voiding Method Toilet Toilet # Voids 2 Weight 65.2 kg General appearance: The patient is alert, oriented, in no acute distress. HET: Head is normocephalic and atraumatic. Pupils are equal and reactive. Oropharynx is clear without lesions. Neck: Supple without lymphadenopathy. Trachea midline. Heart: S1 S2. Regular rate and rhythm. Lungs: No crackles or wheezes are heard. Abdomen: Soft, midepigastric tenderness, nondistended with bowel sounds. No peritoneal signs. No palpable organomegaly or masses. Extremities: Normal skin color and turgor. No cyanosis, rash, ulceration, clubbing, or edema. Radial and pedal pulses are 2/4 bilaterally. Neurological: No focal deficits. Strength and sensation are grossly intact. Results CBC & Chem 7: 09/30/16 05:40 09/30/16 05:40 Labs: Abnormal Lab Results - Last 24 Hours (Table) 09/29/16 09/29/16 09/29/16 Range/Units 14:38 16:40 21:11 RBC (3.80-5.40) m/uL Hgb (11.4-16.0) gm/dL Hct (34.0-46.0) % Chloride (98-107) mmol/L BUN (7-17) mg/dL Creatinine (0.52-1.04) mg/dL POC Glucose (mg/dL) 115 H 232 H (75-99) mg/dL Troponin I 0.168 H* (0.000-0.034) ng/mL 09/30/16 09/30/16 Range/Units 05:40 05:40 RBC 3.35 L (3.80-5.40) m/uL Hgb 10.2 L (11.4-16.0) gm/dL Hct 30.8 L (34.0-46.0) % Chloride 110 H (98-107) mmol/L BUN 52 H (7-17) mg/dL Creatinine 1.50 H (0.52-1.04) mg/dL POC Glucose (mg/dL) (75-99) mg/dL Troponin I (0.000-0.034) ng/mL CT scan - abdomen: report reviewed (Reviewed by Dr. Pagan) Assessment and Plan (1) Epigastric pain Status: Acute (2) Non-ST elevated myocardial infarction Narrative/Plan: Recent non-ST elevated NM status post heart catheterization PCI stent 2016. Status: Acute Plan: 1. We'll proceed with EGD evaluation tomorrow morning. IV Protonix 40 mg twice daily. 2. Light diabetic diet. Nothing by mouth after midnight. The chairlift operator has discussed the risks, benefits and alternative therapies for the above-mentioned procedure and for both sedation/analgesia as well as necessary blood product administration, if indicated, as they pertain to this patient. The patient has indicated understanding and acceptance of the risks and procedures discussed. Thank you for this kind referral and the opportunity to participate in the care of your patient. This consultation was discussed with Dr. Pagan. The impression and plan of care have been directed as dictated.
[2016-09-30] MEDS: ASPIRIN 81 MG CHEW PO SCH (10:48)
[2016-09-30] MEDS: CLOPIDOGREL 75 MG TAB PO SCH (10:48)
[2016-09-30] MEDS: CILOSTAZOL 100 MG TAB PO SCH ×2 (10:48→20:07)
[2016-09-30] MEDS: GABAPENTIN 100 MG CAP PO SCH ×3 (10:48→22:04)
[2016-09-30] MEDS: EZETIMIBE 10 MG TAB PO SCH (10:48)
[2016-09-30] MEDS: HEPARIN SODIUM,PORCINE 5,000 UNIT/ML 1 ML VIAL SQ SCH ×2 (10:49→20:07)
[2016-09-30] MEDS: SERTRALINE 100 MG TAB PO SCH (10:50)
[2016-09-30] MEDS: METOPROLOL TARTRATE 50 MG TAB PO SCH ×2 (10:50→20:07)
[2016-09-30] MEDS: LISINOPRIL 10 MG TAB PO SCH (10:50)
[2016-09-30] MEDS: INSULIN NPH/REG INSULIN 70/30 300 UNIT/3 ML VIAL SQ SCH ×2 (10:51→20:06)
--- NOTE | 2016-09-30 11:49 | P.PN ---
Subjective Patient is complaining of generalized pain that is not well controlled with current dose of [place]. No events overnight otherwise. Objective - Vital Signs Vital signs: Vital Signs Temp 97 F L 09/30/16 04:00 Pulse 75 09/30/16 08:00 Resp 16 09/30/16 08:00 BP 118/52 09/30/16 08:00 Pulse Ox 93 L 09/30/16 08:00 Intake & Output 09/29/16 09/30/16 09/30/16 18:59 06:59 18:59 Intake Total 890 750 Output Total 400 550 Balance 490 200 Weight 65.2 kg Intake: IV 750 Sodium Chloride 0.9% 1, 750 000 ml @ 50 mls/hr IV . Q20H [facility] Rx#:[id number] Intake, IV Titration 50 Amount Sodium Chloride 0.9% 1, 50 000 ml @ 50 mls/hr IV . Q20H [facility] Rx#:[id number] Oral 840 Output: Urine 400 550 Other: Voiding Method Toilet # Voids 1 2 - Exam General: The patient is awake and alert, in no distress Eye: there is normal conjunctiva bilaterally. Neck: The neck is supple, there is no JVD. Cardiovascular: Normal S1-S2, no S3-S4, no murmurs. Respiratory: Lungs clear to auscultation bilaterally Gastrointestinal: Abdomen is soft, nontender Musculoskeletal: There is no pedal edema. Neurological:. Speech is normal. Skin: Skin is warm and dry - Labs CBC & Chem 7: 09/30/16 05:40 09/30/16 05:40 Labs: Abnormal Lab Results - Last 24 Hours (Table) 09/29/16 09/29/16 09/29/16 Range/Units 14:38 16:40 21:11 RBC (3.80-5.40) m/uL Hgb (11.4-16.0) gm/dL Hct (34.0-46.0) % Chloride (98-107) mmol/L BUN (7-17) mg/dL Creatinine (0.52-1.04) mg/dL POC Glucose (mg/dL) 115 H 232 H (75-99) mg/dL Troponin I 0.168 H* (0.000-0.034) ng/mL 09/30/16 09/30/16 Range/Units 05:40 05:40 RBC 3.35 L (3.80-5.40) m/uL Hgb 10.2 L (11.4-16.0) gm/dL Hct 30.8 L (34.0-46.0) % Chloride 110 H (98-107) mmol/L BUN 52 H (7-17) mg/dL Creatinine 1.50 H (0.52-1.04) mg/dL POC Glucose (mg/dL) (75-99) mg/dL Troponin I (0.000-0.034) ng/mL Assessment and Plan Plan: 1. Coronary artery disease status post drug-eluting stent to proximal LAD during last admission. Patient was seen and evaluated by cardiology. Limited echocardiogram done during this admission reviewed. 2. Dizziness: May be attributed to mild orthostatic hypotension. I will continue gentle IV fluid hydration and recheck orthostatics today 3. Type 2 diabetes mellitus insulin-dependent 4. History of CVA with chronic right-sided facial droop 5. Coronary artery disease with history of myocardial infarction 6. Stage IIIB chronic kidney disease 7. Non-thrombotic troponin leak most likely secondary to uncontrolled systolic blood pressure 8. Acute kidney injury, mild 9. Persistent epigastric pain with GERD: Failed multiple regimen. Seen and evaluated by gastroenterology. Plan for EGD tomorrow. Today, I counseled the patient extensively about opiate use. She is showing opiate dependence behavior. I discussed her other medical problems as well. We will continue current regimen otherwise. Repeat lab work in the morning.
[2016-09-30 11:51] LABS: Glucose,Whole Blood 170 mg/dL (75-99)
[2016-09-30] MEDS: PANTOPRAZOLE 40 MG/10 ML VIAL IVP SCH ×2 (12:28→20:07)
--- NOTE | 2016-09-30 14:54 | P.PN ---
Subjective Principal diagnosis: near syncope This is a pleasant 70-year-old female with known history of diabetes, hypertension, hyperlipidemia, COPD, prior CVA, peripheral vascular disease, coronary artery disease with prior stent placements. Most recently the patient was in the hospital earlier this month at which time she underwent angioplasty with stenting of the LAD. Patient was discharged home and she states that she has been taking her aspirin and Plavix on a regular basis however she has not been taking all of her other medications regularly because she's been having symptoms of feeling lightheaded. He only like everything was spinning, she became diaphoretic and passed out. According to her she had 2 of these episodes prior to coming to the hospital. Last evening the patient again had another episode, she states that she had some pressure and heaviness in the chest just prior to the episode happening. She also states that she feels these symptoms mostly when she goes from a sitting to a standing position. EKG performed on arrival here showed a normal sinus rhythm with a right bundle branch block pattern and no acute changes noted. Chest x-ray does not reveal any acute process. Blood pressure lying down 146/80, sitting 148/80, standing 118/65. Potassium today 5.0, creatinine 1.5. Objective - Vital Signs Vital signs: Vital Signs Temp 97 F L 09/30/16 04:00 Pulse 75 09/30/16 12:00 Resp 16 09/30/16 12:00 BP 118/52 09/30/16 08:00 Pulse Ox 93 L 09/30/16 08:00 Intake & Output 09/29/16 09/30/16 09/30/16 18:59 06:59 18:59 Intake Total 890 750 Output Total 400 550 Balance 490 200 Weight 65.2 kg Intake: IV 750 Sodium Chloride 0.9% 1, 750 000 ml @ 50 mls/hr IV . Q20H [facility] Rx#:[id number] Intake, IV Titration 50 Amount Sodium Chloride 0.9% 1, 50 000 ml @ 50 mls/hr IV . Q20H [facility] Rx#:[id number] Oral 840 Output: Urine 400 550 Other: Voiding Method Toilet Toilet # Voids 1 2 - Exam PHYSICAL EXAMINATION: HEENT: Head is atraumatic, normocephalic. Pupils equal, round. Neck is supple. There is no elevated jugular venous pressure. HEART EXAMINATION: Heart S1, S2 normal. No murmur or gallop heard. CHEST EXAMINATION: Lungs are clear with mild diminished air entry to posterior bases. ABDOMEN: Soft, nontender. Bowel sounds are heard. No organomegaly noted. EXTREMITIES: 1+ peripheral pulses with no evidence of peripheral edema and no calf tenderness noted. NEUROLOGIC patient is awake, alert and oriented -3. - Labs CBC & Chem 7: 09/30/16 05:40 09/30/16 05:40 Labs: Abnormal Lab Results - Last 24 Hours (Table) 09/29/16 09/29/16 09/29/16 Range/Units 14:38 16:40 21:11 RBC (3.80-5.40) m/uL Hgb (11.4-16.0) gm/dL Hct (34.0-46.0) % Chloride (98-107) mmol/L BUN (7-17) mg/dL Creatinine (0.52-1.04) mg/dL POC Glucose (mg/dL) 115 H 232 H (75-99) mg/dL Troponin I 0.168 H* (0.000-0.034) ng/mL 09/30/16 09/30/16 09/30/16 Range/Units 05:40 05:40 11:49 RBC 3.35 L (3.80-5.40) m/uL Hgb 10.2 L (11.4-16.0) gm/dL Hct 30.8 L (34.0-46.0) % Chloride 110 H (98-107) mmol/L BUN 52 H (7-17) mg/dL Creatinine 1.50 H (0.52-1.04) mg/dL POC Glucose (mg/dL) 170 H (75-99) mg/dL Troponin I (0.000-0.034) ng/mL Assessment and Plan Plan: Aspirin and plan #1 syncope #2 history of coronary artery disease and prior myocardial infarction with recent angioplasty and stenting of the LAD 3 hypertension #4 hyperlipidemia #5 diabetes #6 chronic renal disease #7 prior DVT #8 prior CVA #9 evidence of small pericardial effusion on CAT scan of the chest #10, troponins, appeared to be on a downward trend from recent admission. Plan Echocardiogram with Doppler study was performed, limited IV to evaluate pericardial effusion. There appears to be a very small pericardial effusion or fat pad. LV function remains 50-55%. We'll discontinue the potassium today, decrease the dose of lisinopril. Continue other medications. DNP note has been reviewed, I agree with a documented findings and plan of care. Patient was seen and examined.
[2016-09-30 16:49] LABS: Glucose,Whole Blood 149 mg/dL (75-99)
[2016-09-30] MEDS: SODIUM CHLORIDE 0.9% 1,000 ML IV SCH (20:06)
[2016-09-30] MEDS: FAMOTIDINE 20 MG TAB PO SCH (20:07)
[2016-09-30 21:08] LABS: Glucose,Whole Blood 289 mg/dL (75-99)
[2016-09-30] MEDS: ZOLPIDEM 5 MG TAB PO PRN (23:11)
[2016-10-01] MEDS: SODIUM CHLORIDE 0.9% 1,000 ML IV SCH ×2 (05:40→18:19)
[2016-10-01 05:43] LABS: Glucose,Whole Blood 103 mg/dL (75-99)
[2016-10-01] MEDS: HYDROcodone/APAP 10-325MG 1 EACH TAB PO PRN ×3 (06:00→18:20)
[2016-10-01] MEDS: INSULIN LISPRO (humaLOG) 300 UNIT/3 ML VIAL SQ SCH ×4 (06:27→20:43)
[2016-10-01 06:58] LABS: Basophils % (A) 0 %; CH 29.6; CHCM 31.8; Eosinophils # (A) 0.3 k/uL (0-0.7); Eosinophils % (A) 4 %; HCT 30.2 % (34.0-46.0); HDW 2.55; HGB 9.9 gm/dL (11.4-16.0); Luc # (Auto) 0.14; Luc % (Auto) 2; Lymphocytes # (A) 2.3 k/uL (1.0-4.8); Lymphocytes % (A) 28 %; MCH 30.5 pg (25.0-35.0); MCHC 32.7 g/dL (31.0-37.0); MCV 93.3 fL (80.0-100.0); Mean Platelet Volume 6.8; Monocytes # (A) 0.5 k/uL (0-1.0); Monocytes % (A) 7 %; Neutrophils # (A) 5.1 k/uL (1.3-7.7); Neutrophils % (A) 60 %; RBC 3.23 m/uL (3.80-5.40); RDW 14.4 % (11.5-15.5); WBC 8.4 k/uL (3.8-10.6); WBC (Perox) 9.03
[2016-10-01 07:13] LABS: Calcium 8.6 mg/dL (8.4-10.2); Magnesium 1.7 mg/dL (1.6-2.3); Potassium 5.2 mmol/L (3.5-5.1)
[2016-10-01] MEDS: INSULIN NPH/REG INSULIN 70/30 300 UNIT/3 ML VIAL SQ SCH ×2 (09:40→20:43)
[2016-10-01] MEDS: EZETIMIBE 10 MG TAB PO SCH (09:40)
[2016-10-01] MEDS: HEPARIN SODIUM,PORCINE 5,000 UNIT/ML 1 ML VIAL SQ SCH ×2 (09:40→20:43)
[2016-10-01] MEDS: PANTOPRAZOLE 40 MG/10 ML VIAL IVP SCH ×2 (09:40→20:44)
[2016-10-01] MEDS: GABAPENTIN 100 MG CAP PO SCH ×3 (09:41→20:44)
[2016-10-01] MEDS: SERTRALINE 100 MG TAB PO SCH (09:41)
[2016-10-01] MEDS: CILOSTAZOL 100 MG TAB PO SCH ×2 (09:41→20:42)
[2016-10-01] MEDS: ASPIRIN 81 MG CHEW PO SCH (09:41)
[2016-10-01] MEDS: CLOPIDOGREL 75 MG TAB PO SCH (09:41)
[2016-10-01] MEDS: LISINOPRIL 5 MG TAB PO SCH (09:41)
[2016-10-01] MEDS: METOPROLOL TARTRATE 50 MG TAB PO SCH ×2 (09:41→20:44)
--- NOTE | 2016-10-01 10:08 | P.PN ---
Subjective Patient is still complaining of nonspecific pain that she described as generalized but worse in her lower back. She said that she has chronic sciatica. Objective - Vital Signs Vital signs: Vital Signs Temp 98.5 F 10/01/16 04:00 Pulse 68 10/01/16 04:00 Resp 16 10/01/16 04:00 BP 198/82 10/01/16 04:00 Pulse Ox 97 10/01/16 04:00 Intake & Output 09/30/16 10/01/16 10/01/16 18:59 06:59 18:59 Intake Total 639 450 Output Total 350 Balance 639 100 Weight 66.5 kg Intake: IV 450 Sodium Chloride 0.9% 1, 450 000 ml @ 50 mls/hr IV . Q20H [facility] Rx#:[id number] Oral 639 Output: Urine 350 Other: Voiding Method Toilet Toilet # Voids 1 1 - Exam General: The patient is awake and alert, in no distress Eye: there is normal conjunctiva bilaterally. Neck: The neck is supple, there is no JVD. Cardiovascular: Normal S1-S2, no S3-S4, no murmurs. Respiratory: Lungs clear to auscultation bilaterally Gastrointestinal: Abdomen is soft, nontender Musculoskeletal: There is no pedal edema. Neurological:. Speech is normal. Skin: Skin is warm and dry - Labs CBC & Chem 7: 10/01/16 05:34 10/01/16 05:34 Labs: Abnormal Lab Results - Last 24 Hours (Table) 09/30/16 09/30/16 09/30/16 Range/Units 11:49 16:47 21:05 RBC (3.80-5.40) m/uL Hgb (11.4-16.0) gm/dL Hct (34.0-46.0) % Potassium (3.5-5.1) mmol/L Chloride (98-107) mmol/L Carbon Dioxide (22-30) mmol/L BUN (7-17) mg/dL Creatinine (0.52-1.04) mg/dL POC Glucose (mg/dL) 170 H 149 H 289 H (75-99) mg/dL 10/01/16 10/01/16 10/01/16 Range/Units 05:34 05:34 05:41 RBC 3.23 L (3.80-5.40) m/uL Hgb 9.9 L (11.4-16.0) gm/dL Hct 30.2 L (34.0-46.0) % Potassium 5.2 H (3.5-5.1) mmol/L Chloride 113 H (98-107) mmol/L Carbon Dioxide 20 L (22-30) mmol/L BUN 48 H (7-17) mg/dL Creatinine 1.31 H (0.52-1.04) mg/dL POC Glucose (mg/dL) 103 H (75-99) mg/dL Assessment and Plan Plan: 1. Coronary artery disease status post drug-eluting stent to proximal LAD during last admission. Patient was seen and evaluated by cardiology. Limited echocardiogram done during this admission reviewed. 2. Dizziness: May be attributed to mild orthostatic hypotension. I will continue gentle IV fluid hydration and recheck orthostatics today 3. Type 2 diabetes mellitus insulin-dependent 4. History of CVA with chronic right-sided facial droop 5. Coronary artery disease with history of myocardial infarction 6. Stage IIIB chronic kidney disease 7. Non-thrombotic troponin leak most likely secondary to uncontrolled systolic blood pressure 8. Acute kidney injury, mild 9. Persistent epigastric pain with GERD: Failed multiple regimen. Seen and evaluated by gastroenterology. Plan for EGD tomorrow. During this admission, I counseled the patient extensively about opiate use. She is showing opiate dependence behavior. I discussed her other medical problems as well. We will continue current regimen otherwise. Repeat lab work in the morning. Awaiting her legal guardian to return a phone call for consent for the EGD.
[2016-10-01 12:00] LABS: Glucose,Whole Blood 73 mg/dL (75-99)
[2016-10-01 16:49] LABS: Glucose,Whole Blood 187 mg/dL (75-99)
--- NOTE | 2016-10-01 19:01 | PN ---
The patient is a 70-year-old pleasant white female admitted to the hospital with severe epigastric pain for the last 2 days' duration. The patient had intermittent abdominal pain on and off for the last one year duration. She was scheduled for an upper endoscopy today, but unfortunately consent could not be obtained from the legal guardian and the procedure has to be canceled today. In the meantime, she still complains of epigastric pain. No nausea or vomiting. States she is hungry. No fever, chills, night sweats. On physical examination she appears comfortable. Blood pressure is 143/68, pulse 60, temperature 98.2. HEENT examination unremarkable. Sclerae anicteric. Oral cavity, no lesions. NECK: No JVD. CHEST: Clear to auscultation. HEART: Regular rate and rhythm. ABDOMEN: Soft. Bowel sounds are positive. No organomegaly. EXTREMITIES: No pedal edema. SKIN: No rashes. NEURO: Alert and oriented x3. No focal deficits. Labs done today, WBC 8.4, hemoglobin 9.9, platelets are normal. Basic metabolic panel shows a potassium of 5.2, sodium 140. BUN 48 and creatinine 1.3. IMPRESSION: 1. This is a lady who presents with acute onset of severe epigastric pain for the last 2 days' duration. She has been having intermittent abdominal pain on and off for the last one year duration. She was scheduled for an upper endoscopy to evaluate further but because of lack of consent the procedure was canceled today. In the meantime, she remains on Protonix 40 mg twice daily and she is feeling much better. She was on a clear liquid diet, tolerating well. 2. Coronary artery disease, status post recent cardiac catheterization, angioplasty and stent placement a month ago, presently on aspirin and Plavix. RECOMMENDATIONS: 1. Will start on a soft diet. 2. Continue with Protonix 40 mg twice daily. 3. If we get a consent today we will consider proceeding with an upper endoscopy tomorrow. Otherwise, we will treat her conservatively and follow her closely. Thank you for this consultation.
[2016-10-01] MEDS: FAMOTIDINE 20 MG TAB PO SCH (20:43)
[2016-10-01] MEDS ORDERED: ZOLPIDEM 5 MG TAB ONE (23:00)
[2016-10-01 23:05] LABS: Glucose,Whole Blood 214 mg/dL (75-99)
[2016-10-02] MEDS: HYDROcodone/APAP 10-325MG 1 EACH TAB PO PRN ×4 (03:17→22:03)
[2016-10-02 07:14] LABS: Glucose,Whole Blood 56 mg/dL (75-99)
[2016-10-02 07:35] LABS: Glucose,Whole Blood 79 mg/dL (75-99)
[2016-10-02] MEDS: INSULIN LISPRO (humaLOG) 300 UNIT/3 ML VIAL SQ SCH ×4 (09:02→21:46)
[2016-10-02] MEDS: ASPIRIN 81 MG CHEW PO SCH (09:06)
[2016-10-02] MEDS: CILOSTAZOL 100 MG TAB PO SCH ×2 (09:06→21:40)
[2016-10-02] MEDS: EZETIMIBE 10 MG TAB PO SCH (09:06)
[2016-10-02] MEDS: LISINOPRIL 5 MG TAB PO SCH (09:07)
[2016-10-02] MEDS: SERTRALINE 100 MG TAB PO SCH (09:07)
[2016-10-02] MEDS: METOPROLOL TARTRATE 50 MG TAB PO SCH ×2 (09:07→21:40)
[2016-10-02] MEDS: HEPARIN SODIUM,PORCINE 5,000 UNIT/ML 1 ML VIAL SQ SCH ×2 (09:07→21:41)
[2016-10-02] MEDS: GABAPENTIN 100 MG CAP PO SCH ×3 (09:07→21:40)
[2016-10-02] MEDS: PANTOPRAZOLE 40 MG/10 ML VIAL IVP SCH (09:08)
[2016-10-02] MEDS: CLOPIDOGREL 75 MG TAB PO SCH (09:08)
--- NOTE | 2016-10-02 10:35 | PN ---
A 70-year-old female with history of diabetes, hypertension, hyperlipidemia, COPD, and peripheral vascular disease and previous stent placement with history of stent placement of the LAD was admitted to the hospital with complaints of possible syncope. So far work-up has been negative. Her BUN was 52 and creatinine 1.5. It appeared it could have been secondary to postural hypotension. She is also complaining of severe back pain and generalized arthritic pains. Her blood pressure is 179/86, pulse is about 79, respirations 16. Lungs are clear. Heart is irregular. No JVD. No peripheral edema. FINAL IMPRESSION: 1. Possible syncope. 2. Rule out postural hypotension. 3. History of cerebrovascular accident. 4. History of coronary artery disease. 5. Chronic kidney disease. PLAN: Increase activity as tolerated. Continue current management. Prognosis is guarded.
[2016-10-02] MEDS: INSULIN NPH/REG INSULIN 70/30 300 UNIT/3 ML VIAL SQ SCH ×2 (11:07→21:53)
[2016-10-02 11:50] LABS: Glucose,Whole Blood 125 mg/dL (75-99)
[2016-10-02 11:57] LABS: Basophils % (A) 0 %; CH 29.6; CHCM 31.9; Eosinophils # (A) 0.3 k/uL (0-0.7); Eosinophils % (A) 3 %; HCT 28.6 % (34.0-46.0); HDW 2.67; HGB 9.2 gm/dL (11.4-16.0); Luc # (Auto) 0.13; Luc % (Auto) 2; Lymphocytes # (A) 1.9 k/uL (1.0-4.8); Lymphocytes % (A) 22 %; MCHC 32.2 g/dL (31.0-37.0); MCV 93.1 fL (80.0-100.0); Mean Platelet Volume 6.5; Monocytes # (A) 0.6 k/uL (0-1.0); Monocytes % (A) 7 %; Neutrophils # (A) 5.8 k/uL (1.3-7.7); Neutrophils % (A) 66 %; RBC 3.07 m/uL (3.80-5.40); RDW 14.4 % (11.5-15.5); WBC 8.8 k/uL (3.8-10.6); WBC (Perox) 8.98
[2016-10-02 12:20] LABS: Calcium 8.8 mg/dL (8.4-10.2); Magnesium 1.7 mg/dL (1.6-2.3); Potassium 5.5 mmol/L (3.5-5.1)
[2016-10-02] MEDS ORDERED: SODIUM POLYSTYRENE SULFONATE 15 GM/60 ML BOTTLE PO STA (14:16)
--- NOTE | 2016-10-02 14:17 | P.PN ---
Subjective No events overnight Objective - Vital Signs Vital signs: Vital Signs Temp 99.1 F 10/02/16 07:00 Pulse 71 10/02/16 07:00 Resp 18 10/02/16 07:00 BP 156/71 10/02/16 07:00 Pulse Ox 92 L 10/02/16 07:00 Intake & Output 10/01/16 10/02/16 10/02/16 18:59 06:59 18:59 Intake Total 402 50 200 Output Total 200 Balance 202 50 200 Weight 66.5 kg Intake: IV 0 50 Sodium Chloride 0.9% 1, 0 50 000 ml @ 50 mls/hr IV . Q20H [facility] Rx#:[id number] Oral 402 200 Output: Urine 200 Other: Voiding Method Toilet Toilet # Voids 1 1 - Exam General: The patient is awake and alert, in no distress Eye: there is normal conjunctiva bilaterally. Neck: The neck is supple, there is no JVD. Cardiovascular: Normal S1-S2, no S3-S4, no murmurs. Respiratory: Lungs clear to auscultation bilaterally Gastrointestinal: Abdomen is soft, nontender Musculoskeletal: There is no pedal edema. Neurological:. Speech is normal. Skin: Skin is warm and dry - Labs CBC & Chem 7: 10/02/16 11:33 10/02/16 11:33 Labs: Abnormal Lab Results - Last 24 Hours (Table) 10/01/16 10/01/16 10/02/16 Range/Units 16:47 20:39 07:13 RBC (3.80-5.40) m/uL Hgb (11.4-16.0) gm/dL Hct (34.0-46.0) % Potassium (3.5-5.1) mmol/L Chloride (98-107) mmol/L Carbon Dioxide (22-30) mmol/L BUN (7-17) mg/dL Creatinine (0.52-1.04) mg/dL Glucose (74-99) mg/dL POC Glucose (mg/dL) 187 H 214 H 56 L (75-99) mg/dL 10/02/16 10/02/16 10/02/16 Range/Units 11:33 11:33 11:42 RBC 3.07 L (3.80-5.40) m/uL Hgb 9.2 L (11.4-16.0) gm/dL Hct 28.6 L (34.0-46.0) % Potassium 5.5 H (3.5-5.1) mmol/L Chloride 114 H (98-107) mmol/L Carbon Dioxide 20 L (22-30) mmol/L BUN 39 H (7-17) mg/dL Creatinine 1.34 H (0.52-1.04) mg/dL Glucose 125 H (74-99) mg/dL POC Glucose (mg/dL) 125 H (75-99) mg/dL Assessment and Plan Plan: 1. Coronary artery disease status post drug-eluting stent to proximal LAD during last admission. Patient was seen and evaluated by cardiology. Limited echocardiogram done during this admission reviewed. 2. Dizziness: May be attributed to mild orthostatic hypotension. I will continue gentle IV fluid hydration and recheck orthostatics today 3. Type 2 diabetes mellitus insulin-dependent 4. History of CVA with chronic right-sided facial droop 5. Coronary artery disease with history of myocardial infarction 6. Stage IIIB chronic kidney disease 7. Non-thrombotic troponin leak most likely secondary to uncontrolled systolic blood pressure 8. Acute kidney injury, mild 9. Persistent epigastric pain with GERD: Failed multiple regimen. Seen and evaluated by gastroenterology. Plan for EGD tomorrow. During this admission, I counseled the patient extensively about opiate use. She is showing opiate dependence behavior. I discussed her other medical problems as well. We will continue current regimen otherwise. Repeat lab work in the morning. Awaiting her legal guardian to return a phone call for consent for the EGD.
[2016-10-02 17:21] LABS: Glucose,Whole Blood 186 mg/dL (75-99)
[2016-10-02] MEDS: PANTOPRAZOLE 40 MG TABLET PO SCH (17:40)
[2016-10-02] MEDS: ZOLPIDEM 5 MG TAB PO PRN (21:40)
[2016-10-02] MEDS: FAMOTIDINE 20 MG TAB PO SCH (21:40)
--- NOTE | 2016-10-02 22:03 | PN ---
DATE OF SERVICE: 10/02/2016 The patient is 70-year-old pleasant lady admitted to the hospital with severe epigastric pain. She is status post cardiac cath with angioplasty and stent placement about a month ago. Because of this abdominal pain, she was scheduled for an upper endoscopy yesterday, but consent could not be obtained from her legal guardian. So far it has not been obtained and hence, EGD could not be performed. In the meantime, she is on Protonix 40 mg every 12 hours and her diet has been advanced to a soft diet. She still complains of epigastric pain, but no nausea or vomiting. On physical examination, she appears comfortable in no apparent distress. Vitals as are stable. Blood pressure 134/63, pulse rate 72, temperature 99. HEENT EXAMINATION: Unremarkable. Conjunctivae pink. Sclerae anicteric. Oral cavity, no lesions. NECK: No JVD enlargement. Chest was clear to auscultation. HEART: Regular rate and rhythm. ABDOMEN: Soft. Bowel sounds are positive. No organomegaly. EXTREMITIES: No pedal edema. SKIN: No rashes. NEURO: Alert and oriented x3. No focal deficits. Labs from today not available. IMPRESSION: 1. Epigastric pain intermittently for the last one year duration, progressively getting worse in the last few days. Rule out peptic ulcer disease. Presently on Protonix 40 mg twice daily, doing well. 2. History of coronary artery disease. RECOMMENDATIONS: 1. Continue the current management plan. 2. The patient still wants to have an upper endoscopy done but once the consent is obtained we will schedule her probably tomorrow. Will follow her closely during her hospital stay.
[2016-10-02 22:14] LABS: Glucose,Whole Blood 185 mg/dL (75-99)
[2016-10-02] MEDS: NITROGLYCERIN SL TABS 0.4 MG TAB SUBLINGUAL PRN (22:50)
[2016-10-03] MEDS: LISINOPRIL 5 MG TAB PO SCH (07:01)
[2016-10-03] MEDS: METOPROLOL TARTRATE 50 MG TAB PO SCH ×2 (07:02→21:27)
[2016-10-03] MEDS: HYDROcodone/APAP 10-325MG 1 EACH TAB PO PRN ×3 (07:03→20:01)
[2016-10-03 07:07] LABS: Glucose,Whole Blood 193 mg/dL (75-99)
[2016-10-03] MEDS: ASPIRIN 81 MG CHEW PO SCH (08:54)
[2016-10-03] MEDS: CLOPIDOGREL 75 MG TAB PO SCH (08:54)
[2016-10-03] MEDS: CILOSTAZOL 100 MG TAB PO SCH ×2 (08:55→21:27)
[2016-10-03] MEDS: INSULIN LISPRO (humaLOG) 300 UNIT/3 ML VIAL SQ SCH ×4 (08:55→21:27)
[2016-10-03] MEDS: HEPARIN SODIUM,PORCINE 5,000 UNIT/ML 1 ML VIAL SQ SCH ×2 (09:01→21:29)
[2016-10-03] MEDS: PANTOPRAZOLE 40 MG TABLET PO SCH ×2 (09:02→18:18)
[2016-10-03] MEDS: EZETIMIBE 10 MG TAB PO SCH (09:03)
[2016-10-03] MEDS: GABAPENTIN 100 MG CAP PO SCH ×3 (09:03→21:27)
[2016-10-03] MEDS: SERTRALINE 100 MG TAB PO SCH (09:03)
[2016-10-03 09:35] LABS: Basophils % (A) 0 %; CH 29.8; Eosinophils # (A) 0.3 k/uL (0-0.7); Eosinophils % (A) 3 %; HCT 30.7 % (34.0-46.0); HDW 2.56; HGB 9.7 gm/dL (11.4-16.0); Luc # (Auto) 0.16; Luc % (Auto) 2; Lymphocytes # (A) 2.1 k/uL (1.0-4.8); Lymphocytes % (A) 24 %; MCH 29.3 pg (25.0-35.0); MCHC 31.4 g/dL (31.0-37.0); MCV 93.3 fL (80.0-100.0); Mean Platelet Volume 6.7; Monocytes # (A) 0.4 k/uL (0-1.0); Monocytes % (A) 5 %; Neutrophils % (A) 67 %; RBC 3.29 m/uL (3.80-5.40); RDW 14.5 % (11.5-15.5); WBC 9.1 k/uL (3.8-10.6); WBC (Perox) 9.26
[2016-10-03 10:14] LABS: Calcium 9.2 mg/dL (8.4-10.2); Magnesium 1.6 mg/dL (1.6-2.3); Potassium 5.9 mmol/L (3.5-5.1)
--- NOTE | 2016-10-03 11:00 | P.PN ---
Subjective No events overnight Objective - Vital Signs Vital signs: Vital Signs Temp 97.9 F 10/03/16 07:00 Pulse 65 10/03/16 07:00 Resp 16 10/03/16 07:00 BP 183/84 10/03/16 07:00 Pulse Ox 93 L 10/03/16 07:00 Intake & Output 10/02/16 10/03/16 10/03/16 18:59 06:59 18:59 Intake Total 600 600 Balance 600 600 Intake: IV 400 Sodium Chloride 0.9% 1, 400 000 ml @ 50 mls/hr IV . Q20H [facility] Rx#:[id number] Oral 200 600 Other: # Voids 1 # Bowel Movements 0 - Exam General: The patient is awake and alert, in no distress Eye: there is normal conjunctiva bilaterally. Neck: The neck is supple, there is no JVD. Cardiovascular: Normal S1-S2, no S3-S4, no murmurs. Respiratory: Lungs clear to auscultation bilaterally Gastrointestinal: Abdomen is soft, nontender Musculoskeletal: There is no pedal edema. Neurological:. Speech is normal. Skin: Skin is warm and dry - Labs CBC & Chem 7: 10/03/16 09:10 10/03/16 09:10 Labs: Abnormal Lab Results - Last 24 Hours (Table) 10/02/16 10/02/16 10/02/16 Range/Units 11:33 11:33 11:42 RBC 3.07 L (3.80-5.40) m/uL Hgb 9.2 L (11.4-16.0) gm/dL Hct 28.6 L (34.0-46.0) % Potassium 5.5 H (3.5-5.1) mmol/L Chloride 114 H (98-107) mmol/L Carbon Dioxide 20 L (22-30) mmol/L BUN 39 H (7-17) mg/dL Creatinine 1.34 H (0.52-1.04) mg/dL Glucose 125 H (74-99) mg/dL POC Glucose (mg/dL) 125 H (75-99) mg/dL 10/02/16 10/02/16 10/03/16 Range/Units 17:12 21:42 07:01 RBC (3.80-5.40) m/uL Hgb (11.4-16.0) gm/dL Hct (34.0-46.0) % Potassium (3.5-5.1) mmol/L Chloride (98-107) mmol/L Carbon Dioxide (22-30) mmol/L BUN (7-17) mg/dL Creatinine (0.52-1.04) mg/dL Glucose (74-99) mg/dL POC Glucose (mg/dL) 186 H 185 H 193 H (75-99) mg/dL 10/03/16 10/03/16 Range/Units 09:10 09:10 RBC 3.29 L (3.80-5.40) m/uL Hgb 9.7 L (11.4-16.0) gm/dL Hct 30.7 L (34.0-46.0) % Potassium 5.9 H (3.5-5.1) mmol/L Chloride 111 H (98-107) mmol/L Carbon Dioxide 21 L (22-30) mmol/L BUN 38 H (7-17) mg/dL Creatinine 1.33 H (0.52-1.04) mg/dL Glucose 179 H (74-99) mg/dL POC Glucose (mg/dL) (75-99) mg/dL Assessment and Plan Plan: 1. Coronary artery disease status post drug-eluting stent to proximal LAD during last admission. Patient was seen and evaluated by cardiology. Limited echocardiogram done during this admission reviewed. 2. Dizziness: May be attributed to mild orthostatic hypotension. I will continue gentle IV fluid hydration and recheck orthostatics today 3. Type 2 diabetes mellitus insulin-dependent 4. History of CVA with chronic right-sided facial droop 5. Coronary artery disease with history of myocardial infarction 6. Stage IIIB chronic kidney disease 7. Non-thrombotic troponin leak most likely secondary to uncontrolled systolic blood pressure 8. Acute kidney injury, mild 9. Persistent epigastric pain with GERD: Failed multiple regimen. Seen and evaluated by gastroenterology. Plan for EGD tomorrow. During this admission, I counseled the patient extensively about opiate use. She is showing opiate dependence behavior. I discussed her other medical problems as well. We will continue current regimen otherwise. Repeat lab work in the morning. Scheduled for EGD this afternoon
[2016-10-03 12:02] LABS: Glucose,Whole Blood 176 mg/dL (75-99)
[2016-10-03] MEDS: INSULIN NPH/REG INSULIN 70/30 300 UNIT/3 ML VIAL SQ SCH ×2 (12:02→21:28)
[2016-10-03] MEDS ORDERED: PROPOFOL 10 MG/ML 20 ML VIAL IV ONE (14:13)
[2016-10-03] MEDS ORDERED: IV FLUID CONTINUATION 1,000 ML IV ONE (14:16)
[2016-10-03] MEDS ORDERED: SODIUM POLYSTYRENE SULFONATE 15 GM/60 ML BOTTLE PO STA (14:36)
--- NOTE | 2016-10-03 14:40 | P.PCN ---
Date of Procedure: 10/03/16 Procedure(s) Performed: Procedure: Esophagogastroduodenoscopy and biopsy. Preoperative diagnosis: Persistent epigastric pain. Postoperative diagnosis: 1. Distal esophagitis. 2. Mild antral gastritis. 3. Multiple biopsies obtained from the duodenum, antrum and esophagus. Preparation and sedation: Was provided by anesthesia. Brief clinical history: The patient is a 70-year-old female who was recently hospitalized 2 weeks ago with non-ST elevated AK, S/P PCI stent proximal LAD 09/2016 maintained on aspirin Plavix, presented with chest pressure or heaviness /persistent severe epigastric pain that she describes knifelike sometimes burning as well as right lower abdominal discomfort. Denies hematemesis or melena. She has tried multiple [id number] antiacids with minimal relief. Last EGD several years ago. Colonoscopy her memory was within the last year and unremarkable. Denies alcohol excessive NSAID or aspirin usage. Has history of CAD, hypertension, GERD, nephrolithiasis with absent left kidney, diabetes mellitus, hyperlipidemia, CVA, chronic kidney disease, PVD, and COPD. this evaluation is scheduled to rule out peptic ulcer disease or other pathology. The details as summarized in the history and physical and dictated consultation. Procedure: With the patient on her left lateral decubitus position and after informed consent and adequate sedation, I passed the Olympus-GIF 160 video upper endoscope through the cricopharyngeus down the esophagus. The distal esophagus showed short linear areas of chronic inflammation and exudation. There was a very small less than 1 cm sliding hiatal hernia but no strictures or Mcdaniels's esophagus. The endoscope was then passed into the stomach which was insufflated with air and inspected in detail including the retroflex view in the cardia. There was some mottling and erythema in the antrum but no ulcers or erosions. Pyloric channel, duodenal bulb, post bulbar area and descending duodenum appeared within normal limits. Because of her symptoms, I obtained biopsies from the duodenum, antrum and esophagus then the endoscope was withdrawn. The patient tolerated the procedure well. Plan: The patient was reassured. Will await biopsy results and make further plans based on her course and biopsy results.
[2016-10-03] MEDS: amLODIPine 5 MG TAB PO SCH (16:21)
[2016-10-03 17:09] LABS: Glucose,Whole Blood 154 mg/dL (75-99)
[2016-10-03 21:17] LABS: Glucose,Whole Blood 234 mg/dL (75-99)
[2016-10-03] MEDS: FAMOTIDINE 20 MG TAB PO SCH (21:27)
[2016-10-03] MEDS: ZOLPIDEM 5 MG TAB PO PRN (22:26)
[2016-10-04] MEDS ORDERED: HYDROcodone/APAP 10-325MG 1 EACH TAB ONE (04:00)
[2016-10-04 07:41] LABS: Glucose,Whole Blood 82 mg/dL (75-99)
[2016-10-04] MEDS: PANTOPRAZOLE 40 MG TABLET PO SCH (08:00)
[2016-10-04 08:06] VITALS: BP 158/87; PULSE 70; RESP 19; TEMP 99
[2016-10-04] MEDS: INSULIN LISPRO (humaLOG) 300 UNIT/3 ML VIAL SQ SCH ×2 (08:24→13:00)
[2016-10-04] MEDS: HEPARIN SODIUM,PORCINE 5,000 UNIT/ML 1 ML VIAL SQ SCH (09:05)
[2016-10-04] MEDS: ASPIRIN 81 MG CHEW PO SCH (09:06)
[2016-10-04] MEDS: EZETIMIBE 10 MG TAB PO SCH (09:06)
[2016-10-04] MEDS: CILOSTAZOL 100 MG TAB PO SCH (09:06)
[2016-10-04] MEDS: GABAPENTIN 100 MG CAP PO SCH (09:06)
[2016-10-04] MEDS: CLOPIDOGREL 75 MG TAB PO SCH (09:06)
[2016-10-04] MEDS: amLODIPine 5 MG TAB PO SCH (09:07)
[2016-10-04] MEDS: METOPROLOL TARTRATE 50 MG TAB PO SCH (09:07)
[2016-10-04] MEDS: SERTRALINE 100 MG TAB PO SCH (09:07)
[2016-10-04] MEDS: INSULIN NPH/REG INSULIN 70/30 300 UNIT/3 ML VIAL SQ SCH (09:08)
[2016-10-04] MEDS: HYDROcodone/APAP 10-325MG 1 EACH TAB PO PRN ×2 (09:09→14:18)
[2016-10-04 10:19] LABS: Basophils % (A) 0 %; CH 29.9; CHCM 32.2; Eosinophils # (A) 0.3 k/uL (0-0.7); Eosinophils % (A) 3 %; HDW 2.58; HGB 10.2 gm/dL (11.4-16.0); Luc # (Auto) 0.11; Luc % (Auto) 1; Lymphocytes # (A) 2.1 k/uL (1.0-4.8); Lymphocytes % (A) 22 %; MCH 29.8 pg (25.0-35.0); MCHC 31.9 g/dL (31.0-37.0); MCV 93.3 fL (80.0-100.0); Mean Platelet Volume 6.6; Monocytes # (A) 0.4 k/uL (0-1.0); Monocytes % (A) 4 %; Neutrophils # (A) 6.8 k/uL (1.3-7.7); Neutrophils % (A) 70 %; RBC 3.44 m/uL (3.80-5.40); RDW 14.7 % (11.5-15.5); WBC 9.7 k/uL (3.8-10.6); WBC (Perox) 10.21
[2016-10-04 10:51] LABS: Calcium 9.2 mg/dL (8.4-10.2); Magnesium 1.4 mg/dL (1.6-2.3); Potassium 5.7 mmol/L (3.5-5.1)
[2016-10-04] MEDS ORDERED: SODIUM POLYSTYRENE SULFONATE 15 GM/60 ML BOTTLE PO STA (12:01)
--- NOTE | 2016-10-04 12:08 | P.DS ---
Providers Date of admission: 09/28/16 11:55 Expected date of discharge: 10/04/16 Attending physician: Mallory Hernandez Consults: 09/28/16 11:54 Consult Physician Urgent Consulting Provider: Ghassan Marsh Consult Reason/Comments: near syncope Do you want consulting provider notified?: Yes Primary care physician: [facility] Course: 1. Coronary artery disease status post drug-eluting stent to proximal LAD during last admission. Patient was seen and evaluated by cardiology. Limited echocardiogram done during this admission reviewed. 2. Dizziness: May be attributed to mild orthostatic hypotension. Improved with IV fluid hydration 3. Type 2 diabetes mellitus insulin-dependent 4. History of CVA with chronic right-sided facial droop 5. Coronary artery disease with history of myocardial infarction 6. Stage IIIB chronic kidney disease 7. Non-thrombotic troponin leak most likely secondary to uncontrolled systolic blood pressure 8. Acute kidney injury, mild 9. Persistent epigastric pain with GERD: Underwent EGD by gastroenterology. Findings of mild antral gastritis. Patient is medically cleared for discharge home. She was counseled extensively about medication compliance. She will follow-up with me in the office in 2-3 days. Plan - Discharge Summary New Discharge Prescriptions: amLODIPine [Norvasc] 5 mg PO DAILY #30 tab Pantoprazole [Protonix] 40 mg PO AC-BRKFST #60 tab Discharge Medication List Albuterol Inhaler [Ventolin Hfa Inhaler] 2 puff INHALATION RT-BID PRN 06/02/16 [ History] Cilostazol [Pletal] 100 mg PO BID 06/02/16 [History] Sertraline HCl [Zoloft] 100 mg PO DAILY 06/02/16 [History] Nitroglycerin Sl Tabs [Nitrostat] 0.4 mg SUBLINGUAL Q5M PRN 08/04/16 [History] Hydrocodone/Acetaminophen [[place] 10-325] 1 tab PO Q8HR PRN 09/20/16 [History] Aspirin 81 mg PO DAILY #90 chew 09/26/16 [Rx] Clopidogrel [Plavix] 75 mg PO DAILY #90 tab 09/26/16 [Rx] Ezetimibe [Zetia] 10 mg PO DAILY #90 tab 09/26/16 [Rx] Gabapentin [Neurontin] 100 mg PO TID #90 cap 09/26/16 [Rx] Insulin NPH/Reg Insulin 70/30 [humuLIN 70/30 VIAL] 20 unit SQ BID #5 vial [Rx] Metoprolol Tartrate [Lopressor] 50 mg PO BID #120 tab 09/26/16 [Rx] Pantoprazole [Protonix] 40 mg PO AC-BRKFST #60 tab 10/04/16 [Rx] amLODIPine [Norvasc] 5 mg PO DAILY #30 tab 10/04/16 [Rx] Follow up Appointment(s)/Referral(s): Kike White MD [STAFF PHYSICIAN] - 1 Week Mallory Hernandez MD [Primary Care Provider] - 1-2 days Discharge Disposition: HOME WITH HOME HEALTH SERVICES
[2016-10-04 12:39] LABS: Glucose,Whole Blood 166 mg/dL (75-99)
== END 2016-10-04 15:33 | DRG 391 ==
LOC: EC 09:23 → 6SEL 11:55 → 4MS4W 10-02 03:07
PROVIDERS: ADMIT Internal Medicine; ATTEND Internal Medicine
PROC: 0DB78ZX Excision of Stomach, Pylorus, Via Natural or Artificial Opening Endoscopic, Diagnostic (ICD-10-PCS; 2016-10-03)
PROC: 0DB58ZX Excision of Esophagus, Via Natural or Artificial Opening Endoscopic, Diagnostic (ICD-10-PCS; 2016-10-03)
PROC: 0DB98ZX Excision of Duodenum, Via Natural or Artificial Opening Endoscopic, Diagnostic (ICD-10-PCS; principal; 2016-10-03 08:10)
DX: K29.60 Other gastritis without bleeding (principal); I21.4 Non-ST elevation (NSTEMI) myocardial infarction; N17.9 Acute kidney failure, unspecified; I31.3 Pericardial effusion (noninflammatory); I71.2 Thoracic aortic aneurysm, without rupture; S60.416A Abrasion of right little finger, initial encounter; Q60.0 Renal agenesis, unilateral; E11.22 Type 2 diabetes mellitus with diabetic chronic kidney disease; I25.10 Atherosclerotic heart disease of native coronary artery without angina pectoris; N18.3 Chronic kidney disease, stage 3 (moderate); I95.1 Orthostatic hypotension; I12.9 Hypertensive chronic kidney disease with stage 1 through stage 4 chronic kidney disease, or unspecified chronic kidney disease; I45.10 Unspecified right bundle-branch block; K44.9 Diaphragmatic hernia without obstruction or gangrene; J44.9 Chronic obstructive pulmonary disease, unspecified; K21.0 Gastro-esophageal reflux disease with esophagitis; T50.906A Underdosing of unspecified drugs, medicaments and biological substances, initial encounter; I69.392 Facial weakness following cerebral infarction; E11.51 Type 2 diabetes mellitus with diabetic peripheral angiopathy without gangrene; F40.240 Claustrophobia; R29.6 Repeated falls; M19.90 Unspecified osteoarthritis, unspecified site; E78.5 Hyperlipidemia, unspecified; F41.9 Anxiety disorder, unspecified; F32.9 Major depressive disorder, single episode, unspecified; M54.30 Sciatica, unspecified side; R74.8 Abnormal levels of other serum enzymes; G89.29 Other chronic pain; J45.909 Unspecified asthma, uncomplicated; F17.200 Nicotine dependence, unspecified, uncomplicated; Z90.49 Acquired absence of other specified parts of digestive tract; Z83.3 Family history of diabetes mellitus; Z82.49 Family history of ischemic heart disease and other diseases of the circulatory system; Z95.5 Presence of coronary angioplasty implant and graft; Z79.899 Other long term (current) drug therapy; Z87.442 Personal history of urinary calculi; Z90.710 Acquired absence of both cervix and uterus; Z79.4 Long term (current) use of insulin; Z79.01 Long term (current) use of anticoagulants; Z79.891 Long term (current) use of opiate analgesic; Z88.0 Allergy status to penicillin; Z88.2 Allergy status to sulfonamides; Z87.440 Personal history of urinary (tract) infections; Z87.01 Personal history of pneumonia (recurrent); Z86.718 Personal history of other venous thrombosis and embolism; Z87.09 Personal history of other diseases of the respiratory system; Z86.19 Personal history of other infectious and parasitic diseases; Z88.1 Allergy status to other antibiotic agents; Z91.041 Radiographic dye allergy status; Z91.81 History of falling; Z84.1 Family history of disorders of kidney and ureter; Z80.9 Family history of malignant neoplasm, unspecified; Z79.82 Long term (current) use of aspirin; Z91.14 Patient's other noncompliance with medication regimen; Z89.422 Acquired absence of other left toe(s); Z71.89 Other specified counseling
CPT/HCPCS: 36415; 43239; 70450; 71020; 74176; 80048; 80053; 80061; 81001; 82150; 82550; 82553; 83036; 83690; 83735; 84132; 84484; 85025; 85610; 85730; 87086; 88305; 88342; 93005; 93308; 94640; 96374; 96375; 99285

== ENCOUNTER 2016-10-08 00:10 | Inpatient (IN) | payer MEDICARE, OTHER ==
[2016-10-08] MEDS ORDERED: ONDANSETRON 4 MG/2 ML VIAL IVP STA (01:41)
[2016-10-08] MEDS ORDERED: MORPHINE SULFATE 4 MG/ML SYRINGE IV STA (01:41)
[2016-10-08 01:47] LABS: Basophils # (A) 0.1 k/uL (0-0.2); Basophils % (A) 1 %; CH 29.8; CHCM 32.3; Eosinophils # (A) 0.3 k/uL (0-0.7); Eosinophils % (A) 4 %; HCT 29.4 % (34.0-46.0); HDW 2.65; HGB 9.4 gm/dL (11.4-16.0); Luc % (Auto) 1; Lymphocytes % (A) 22 %; MCH 29.5 pg (25.0-35.0); MCHC 31.9 g/dL (31.0-37.0); MCV 92.4 fL (80.0-100.0); Mean Platelet Volume 6.6; Monocytes # (A) 0.4 k/uL (0-1.0); Monocytes % (A) 4 %; Neutrophils # (A) 6.1 k/uL (1.3-7.7); Neutrophils % (A) 69 %; RBC 3.18 m/uL (3.80-5.40); WBC 8.9 k/uL (3.8-10.6); WBC (Perox) 8.93
[2016-10-08 01:58] LABS: Calcium 8.9 mg/dL (8.4-10.2); Magnesium 1.6 mg/dL (1.6-2.3); Potassium 5.1 mmol/L (3.5-5.1); Total Bilirubin 0.2 mg/dL (0.2-1.3); Total Protein 5.6 g/dL (6.3-8.2)
[2016-10-08 02:10] LABS: Prothrombin Time 9.9 sec (9.0-12.0)
--- NOTE | 2016-10-08 02:10 | XR ---
EXAM: XR Chest, 1 View CLINICAL HISTORY: Chest pain. TECHNIQUE: Frontal view of the chest. COMPARISON: No relevant prior studies available. FINDINGS: Lungs: Mild atelectasis at the left lung base. Lungs otherwise clear. No focal consolidation. No pulmonary edema. Pleural space: No significant pleural effusion or pneumothorax. Heart: Borderline cardiac silhouette size. Mediastinum: Stable mediastinal contours. Stable tortuosity of the thoracic aorta. Bones/joints: Stable osseous structures. IMPRESSION: Mild atelectasis at the left lung base. Otherwise, stable chest without radiographic evidence of acute cardiopulmonary process.
[2016-10-08 02:17] LABS: Partial Thromboplastin Time 20.9 sec (22.0-30.0)
[2016-10-08 02:33] LABS: Creatine Kinase MB 1.7 ng/mL (0.0-2.4); Troponin I 0.029 ng/mL (0.000-0.034)
--- NOTE | 2016-10-08 06:57 | ED ---
Chest Pain HPI - General Chief Complaint: Chest Pain Stated Complaint: Chest pain Time Seen by Provider: 10/08/16 01:13 Source: patient Mode of arrival: EMS Limitations: no limitations - History of Present Illness Initial Comments: This patient is 70-year-old woman who is in from [facility] after she had developed substernal and left-sided chest pain tonight. The patient does state that it feels similar to the pain she had prior to receiving a stent. Patient also states that her breathing felt funny. She denied diaphoresis, vomiting, palpitations, lightheadedness or syncope. MD Complaint: chest pain -: hour(s) Onset: during rest Pain Location: substernal, left chest Pain Radiation: none Severity: moderate Quality: heaviness Consistency: constant Improves With: nothing Worsens With: nothing Anginal Symptoms: dyspnea Treatments Prior to Arrival: aspirin, nitroglycerin - Related Data On Oral Contraceptives: No Home Medications Medication Instructions Recorded Confirmed Cilostazol [Pletal] 100 mg PO BID 06/02/16 10/08/16 Sertraline HCl [Zoloft] 100 mg PO DAILY 06/02/16 10/08/16 Nitroglycerin Sl Tabs [Nitrostat] 0.4 mg SUBLINGUAL Q5M PRN 08/04/16 10/08/16 Hydrocodone/Acetaminophen [[place] 1 tab PO Q8HR PRN 09/20/16 10/08/16 10-325] Albuterol Inhaler [Ventolin Hfa 2 puff INHALATION BID 10/08/16 10/08/16 Inhaler] Gabapentin [Neurontin] 300 mg PO TID 10/08/16 10/08/16 Melatonin 2 tab PO HS 10/08/16 10/08/16 Metoprolol Tartrate [Lopressor] 75 mg PO BID 10/08/16 10/08/16 [place]-3 Fatty Acids/Fish Oil [Fish 2,000 mg PO BID 10/08/16 10/08/16 Oil 1,000 mg Softgel] Previous Rx's Medication Instructions Recorded Aspirin 81 mg PO DAILY #90 chew 09/26/16 Clopidogrel [Plavix] 75 mg PO DAILY #90 tab 09/26/16 Ezetimibe [Zetia] 10 mg PO DAILY #90 tab 09/26/16 Insulin NPH/Reg Insulin 70/30 20 unit SQ BID #5 vial 09/26/16 [humuLIN 70/30 VIAL] Pantoprazole [Protonix] 40 mg PO AC-BRKFST #60 tab 10/04/16 amLODIPine [Norvasc] 5 mg PO DAILY #30 tab 10/04/16 Allergies Allergy/AdvReac Type Severity Reaction Status Date / Time Iodinated Contrast Media - Allergy Severe Anaphylaxis Verified 10/08/16 00:21 Oral and [Iodinated Contrast Media - IV Dye] nitrofurantoin Allergy Severe Anaphylaxis Verified 10/08/16 00:21 [From Macrobid] cephalexin monohydrate Allergy Swelling Verified 10/08/16 00:21 [From Keflex] ciprofloxacin Allergy Unknown Verified 10/08/16 00:21 Penicillins Allergy Swelling Verified 10/08/16 00:21 Sulfa (Sulfonamide Allergy Rash/Hives Verified 10/08/16 00:21 Antibiotics) Review of Systems ROS Statement: Those systems with pertinent positive or pertinent negative responses have been documented in the HPI. ROS Other: All systems not noted in ROS Statement are negative. Constitutional: Denies: fever, chills, weakness Respiratory: Reports: dyspnea. Denies: cough, wheezes Cardiovascular: Reports: as per HPI, chest pain. Denies: palpitations, orthopnea, edema, syncope Gastrointestinal: Denies: abdominal pain, nausea, vomiting Genitourinary: Denies: dysuria, hematuria Musculoskeletal: Denies: back pain Skin: Denies: rash Neurological: Denies: headache, weakness, numbness EKG Findings - EKG Results: EKG: interpreted by ERMD, sinus rhythm (Rate 79 bpm), normal axis - Blocks, [place], Hypertrophy, ST Abn: AV and intraventricular conduction: right bundle branch block (fixed/ intermittent, complete/incomplete) Past Medical History Past Medical History: Asthma, Coronary Artery Disease (CAD), Chest Pain / Angina , COPD, CVA/TIA, Diabetes Mellitus, Deep Vein Thrombosis (DVT), Hyperlipidemia, Hypertension, Myocardial Infarction (HI), Osteoarthritis (OA), Pneumonia, Renal Disease, Vascular Disorder Additional Past Medical History / Comment(s): Pt recently admitted to [facility] on 09/20/16 with NSTEMI, hypertensive emergency and had PCI with stent. Other hx: COPD/purulent bronchitis and UTI, IDDM type II, DVT bilateral lower legs, cardiac murmur, congenital single right kidney, R nephrolithiasis per 05/2016 U/S , CKD stage III, difficulty sleeping, clausterphobia, CVA with chronic R facial droop, neuropathy bilateral hands and feet, PVD, falls. 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 Date of Last Stent Placement:: 09/21/16 Past Psychological History: Anxiety, Depression Additional Psychological History / Comment(s): pt stated has some mild depression d/t medical problems but not hopeless. Denies any thoughts of harming self or others, no suicidal ideations. Pt recently was placed at [facility]. She has been back home for about 4 weeks. Pt resides in an apartment. She uses a cane or a wheelchair. She does not drive. She has a legal guardian, Angelica Malaika. [employer] contacted who states she is wanting pt to discharge to [facility] this time. Last discharge pt went home and was to have home care which did not have a chance to establish yet. Angelica states pt did not like [facility]. Pt states her LG has a compressor service technician assigned to her and that this compressor service technician (Em) takes her to appointments. She feels she needs assistance with housework. She states she has difficulty with washing up d/t being in a wheelchair and is too short for the sink. She cooks minimally. She would like a nebulizer. Smoking Status: Current every day smoker Past Alcohol Use History: None Reported Additional Past Alcohol Use History / Comment(s): Patient is a smoker of 2 packs per day for 55 years. She denies any medical marijuana, marijuana, street drug use. She denies any alcohol use or abuse. She has been on disability for long period of time. She is currently living alone. Past Drug Use History: None Reported - Past Family History Mother Family Medical History: Cancer, Diabetes Mellitus, Myocardial Infarction (HI) Additional Family Medical History / Comment(s): from aortic anurysm Father Family Medical History: Renal Disease General Exam Limitations: no limitations General appearance: alert, in no apparent distress Head exam: Present: atraumatic, normocephalic, normal inspection Eye exam: Present: normal appearance. Absent: scleral icterus, conjunctival injection ENT exam: Present: normal oropharynx Neck exam: Present: normal inspection, full ROM Respiratory exam: Present: normal lung sounds bilaterally, chest wall tenderness. Absent: respiratory distress, wheezes, rales, rhonchi, stridor Cardiovascular Exam: Present: regular rate, normal rhythm, normal heart sounds. Absent: systolic murmur, diastolic murmur, rubs, gallop GI/Abdominal exam: Present: soft. Absent: distended, tenderness, guarding, rebound, mass Extremities exam: Present: normal inspection, normal capillary refill. Absent: pedal edema, calf tenderness Back exam: Absent: CVA tenderness (R), CVA tenderness (L) Neurological exam: Present: alert Skin exam: Present: warm, dry, intact, normal color. Absent: rash, cyanosis, diaphoretic, erythema, petechiae, pallor, mottled Course Vital Signs 10/08/16 10/08/16 10/08/16 00:16 02:26 03:26 Pulse Rate 78 66 68 Respiratory 18 18 18 Rate Blood Pressure 165/77 122/60 151/63 O2 Sat by Pulse 96 97 Oximetry 10/08/16 10/08/16 05:26 06:00 Pulse Rate 62 63 Respiratory 18 18 Rate Blood Pressure 147/65 159/72 O2 Sat by Pulse 96 95 Oximetry Disposition Clinical Impression: Chest pain Disposition: ADMITTED IP TO THIS HOSP Condition: Fair Referrals: Mallory Hernandez MD [Primary Care Provider] - 1-2 days
[2016-10-08] MEDS ORDERED: HEPARIN SODIUM,PORCINE 5,000 UNIT/ML 1 ML VIAL IV ONE (07:11)
[2016-10-08] MEDS ORDERED: NITROGLYCERIN SL TABS 0.4 MG TAB SUBLINGUAL PRN (07:11)
[2016-10-08] MEDS: HEPARIN SODIUM,PORCINE/D5W PMX 25,000 UNIT in DEXTROSE/WATER 1 500ML.BAG IV SCH (07:54)
[2016-10-08] MEDS ORDERED: LORazepam 2 MG/ML SYRINGE IV STA (08:28)
--- NOTE | 2016-10-08 10:01 | NM ---
EXAMINATION TYPE: NM pul vent and perfuse DATE OF EXAM: 10/08/2016 9:54 AM COMPARISON: Radiograph same day HISTORY: 70-year-old female shortness of breath, evaluate for PE. TECHNIQUE: Utilizing inhalation of 70.8 mCi Tc 99m DTPA aerosol and intravenous injection of 5.3 mCi of Tc 99m MAA, ventilation and perfusion images are acquired post injection in multiple projections. FINDINGS: There is a matched moderate sized ventilation perfusion defect along the posterior left apex. IMPRESSION: Intermediate probability for pulmonary embolus based on modified PIOPED criteria.
[2016-10-08 12:34] VITALS: BMI 29.2
[2016-10-08 12:58] LABS: Glucose,Whole Blood 125 mg/dL (75-99)
[2016-10-08] MEDS ORDERED: HYDROcodone/APAP 10-325MG 1 EACH TAB PO PRN (15:44)
--- NOTE | 2016-10-08 15:58 | P.HPIM ---
History of Present Illness H&P Date: 10/08/16 Chief Complaint: Chest pain Patient is 70-year-old female who is in from a [facility]dc after she had developed substernal and left-sided chest pain tonight. The patient does state that it feels similar to the pain she had prior to receiving a stent. Patient also states that she had some difficulty with her breathing. She denied diaphoresis, vomiting, palpitations, lightheadedness or syncope. Past Medical History Past Medical History: Asthma, Coronary Artery Disease (CAD), Chest Pain / Angina , COPD, CVA/TIA, Diabetes Mellitus, Deep Vein Thrombosis (DVT), Hyperlipidemia, Hypertension, Myocardial Infarction (NC), Osteoarthritis (OA), Pneumonia, Renal Disease, Vascular Disorder Additional Past Medical History / Comment(s): Pt recently admitted to [facility] on 09/20/16 with NSTEMI, hypertensive emergency and had PCI with stent. Other hx: COPD/purulent bronchitis and UTI, IDDM type II, DVT bilateral lower legs, cardiac murmur, congenital single right kidney, R nephrolithiasis per 05/2016 U/S , CKD stage III, difficulty sleeping, clausterphobia, CVA with chronic R facial droop, neuropathy bilateral hands and feet, PVD, falls. 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 Date of Last Stent Placement:: 09/21/16 Past Psychological History: Anxiety, Depression Additional Psychological History / Comment(s): pt stated has some mild depression d/t medical problems but not hopeless. Denies any thoughts of harming self or others, no suicidal ideations. Pt recently was placed at [facility]. She has been back home for about 4 weeks. Pt resides in an apartment. She uses a cane or a wheelchair. She does not drive. She has a legal guardian, Angelicazo Rasheedcata. Dip Brazier contacted who states she is wanting pt to discharge to fdc this time. Last discharge pt went home and was to have home care which did not have a chance to establish yet. Angelica states pt did not like [facility]. Pt states her [employer] has a software reverse engineer assigned to her and that this software reverse engineer (Em) takes her to appointments. She feels she needs assistance with housework. She states she has difficulty with washing up d/t being in a wheelchair and is too short for the sink. She cooks minimally. She would like a nebulizer. Smoking Status: Current every day smoker Past Alcohol Use History: None Reported Additional Past Alcohol Use History / Comment(s): Patient is a smoker of 2 packs per day for 55 years. She denies any medical marijuana, marijuana, street drug use. She denies any alcohol use or abuse. She has been on disability for long period of time. She is currently living alone. Past Drug Use History: None Reported - Past Family History Mother Family Medical History: Cancer, Diabetes Mellitus, Myocardial Infarction (NC) Additional Family Medical History / Comment(s): from aortic anurysm Father Family Medical History: Renal Disease Medications and Allergies Home Medications Medication Instructions Recorded Confirmed Type Cilostazol [Pletal] 100 mg PO BID 06/02/16 10/08/16 History Sertraline HCl [Zoloft] 100 mg PO DAILY 06/02/16 10/08/16 History Nitroglycerin Sl Tabs [Nitrostat] 0.4 mg SUBLINGUAL Q5M PRN 08/04/16 10/08/16 History Hydrocodone/Acetaminophen [[place] 1 tab PO Q8HR PRN 09/20/16 10/08/16 History 10-325] Albuterol Inhaler [Ventolin Hfa 2 puff INHALATION BID 10/08/16 10/08/16 History Inhaler] Gabapentin [Neurontin] 300 mg PO TID 10/08/16 10/08/16 History Melatonin 2 tab PO HS 10/08/16 10/08/16 History Metoprolol Tartrate [Lopressor] 75 mg PO BID 10/08/16 10/08/16 History [place]-3 Fatty Acids/Fish Oil [Fish 2,000 mg PO BID 10/08/16 10/08/16 History Oil 1,000 mg Softgel] Allergies Allergy/AdvReac Type Severity Reaction Status Date / Time Iodinated Contrast Media - Allergy Severe Anaphylaxis Verified 10/08/16 12:53 Oral and [Iodinated Contrast Media - IV Dye] nitrofurantoin Allergy Severe Anaphylaxis Verified 10/08/16 12:53 [From Macrobid] cephalexin monohydrate Allergy Swelling Verified 10/08/16 12:53 [From Keflex] ciprofloxacin Allergy Unknown Verified 10/08/16 12:53 Penicillins Allergy Swelling Verified 10/08/16 12:53 Sulfa (Sulfonamide Allergy Rash/Hives Verified 10/08/16 12:53 Antibiotics) Physical Exam Vitals: Vital Signs Temp Pulse Pulse Resp BP BP Pulse Ox 10/08/16 12:53 97.7 F 66 18 145/71 95 10/08/16 11:30 98.2 F 62 16 173/74 96 10/08/16 07:30 98.8 F 69 16 172/76 93 L 10/08/16 06:00 63 18 159/72 95 10/08/16 05:26 62 18 147/65 96 10/08/16 03:26 68 18 151/63 97 10/08/16 02:26 66 18 122/60 96 10/08/16 00:16 78 18 165/77 Intake and Output 10/08/16 10/08/16 10/08/16 06:59 14:59 22:59 Intake Total 36 128.928 Balance 36 128.928 Intake: IV 20 0.9 NS 20 Intake, IV Titration 16 128.928 Amount Heparin Sodium,Porcine/ 16 128.928 D5w Pmx 25,000 unit In Dextrose/Water 1 500ml. bag @ 12 UNITS/KG/HR 16. 32 mls/hr IV .Q24H [facility] Rx #:[id number] Other: Weight 68.039 kg 68.039 kg Patient Weight 10/09/16 06:59 Weight 68.039 kg n general patient is alert and oriented 3 in no apparent distress HEENT head normocephalic and atraumatic Neck is supple no JVD no goiter no lymphadenopathy Cardiac exam reveals regular heart sounds S1 and S2 no gallops no murmurs Chest exam reveals a few scattered rhonchi bilaterally Abdomen is soft nontender no organomegaly with normal bowel sounds Extremity exam reveals no edema no cyanosis or clubbing Neurological examination reveals no gross deficit Results CBC & Chem 7: 10/08/16 01:30 10/08/16 01:30 Labs: Abnormal Lab Results - Last 24 Hours (Table) 10/08/16 10/08/16 10/08/16 Range/Units 01:30 01:30 01:30 RBC 3.18 L (3.80-5.40) m/uL Hgb 9.4 L (11.4-16.0) gm/dL Hct 29.4 L (34.0-46.0) % APTT (22.0-30.0) sec D-Dimer (<0.60) mg/L FEU Chloride 112 H (98-107) mmol/L Carbon Dioxide 19 L (22-30) mmol/L BUN 39 H (7-17) mg/dL Creatinine 1.30 H (0.52-1.04) mg/dL Glucose 250 H (74-99) mg/dL POC Glucose (mg/dL) (75-99) mg/dL AST 11 L (14-36) U/L Total Creatine Kinase 25 L (30-135) U/L Troponin I (0.000-0.034) ng/mL Total Protein 5.6 L (6.3-8.2) g/dL Albumin 3.3 L (3.5-5.0) g/dL 10/08/16 10/08/16 10/08/16 Range/Units 01:30 07:00 12:56 RBC (3.80-5.40) m/uL Hgb (11.4-16.0) gm/dL Hct (34.0-46.0) % APTT 20.9 L (22.0-30.0) sec D-Dimer 3.21 H (<0.60) mg/L FEU Chloride (98-107) mmol/L Carbon Dioxide (22-30) mmol/L BUN (7-17) mg/dL Creatinine (0.52-1.04) mg/dL Glucose (74-99) mg/dL POC Glucose (mg/dL) 125 H (75-99) mg/dL AST (14-36) U/L Total Creatine Kinase (30-135) U/L Troponin I 0.035 H* (0.000-0.034) ng/mL Total Protein (6.3-8.2) g/dL Albumin (3.5-5.0) g/dL 10/08/16 10/08/16 Range/Units 14:10 14:10 RBC (3.80-5.40) m/uL Hgb (11.4-16.0) gm/dL Hct (34.0-46.0) % APTT 34.0 H (22.0-30.0) sec D-Dimer (<0.60) mg/L FEU Chloride (98-107) mmol/L Carbon Dioxide (22-30) mmol/L BUN (7-17) mg/dL Creatinine (0.52-1.04) mg/dL Glucose (74-99) mg/dL POC Glucose (mg/dL) (75-99) mg/dL AST (14-36) U/L Total Creatine Kinase (30-135) U/L Troponin I 0.039 H* (0.000-0.034) ng/mL Total Protein (6.3-8.2) g/dL Albumin (3.5-5.0) g/dL Thrombosis Risk Factor Assmnt - Choose All That Apply Any of the Below Risk Factors Present?: Yes Each Factor Represents 1 point: Abnormal pulmonary function (COPD) Other Risk Factors: Yes Each Risk Factor Represents 2 Points: Age 61-74 years Each Risk Factor Represents 3 Points: History of DVT/PE Thrombosis Risk Factor Assessment Total Risk Factor Score: 6 Thrombosis Risk Factor Assessment Level: High Risk Assessment and Plan Plan: #1 coronary artery disease status post drug eluting stent placement to proximal LAD during the last admission 2 weeks ago, patient presenting with [address] episode of chest pain and slight elevation in troponin levels #2 diabetes mellitus type 2 insulin-dependent #3 previous history of CVA with right sided facial droop #4 elevated d-dimer on presentation #5 stage III chronic kidney disease #6 gastritis patient had an EGD recently is that revealed evidence of antral gastritis #7 underlying history of hypertension #8 underlying history of peripheral neuropathy maintained on gabapentin At this time patient is maintained on IV heparin Continue was current management medication reviewed, cardiology consultation has been requested
[2016-10-08 16:44] LABS: Glucose,Whole Blood 116 mg/dL (75-99)
[2016-10-08] MEDS: GABAPENTIN 300 MG CAP PO SCH ×2 (17:36→20:25)
[2016-10-08] MEDS: amLODIPine 5 MG TAB PO SCH (17:36)
[2016-10-08] MEDS: SERTRALINE 100 MG TAB PO SCH (17:36)
[2016-10-08] MEDS: CLOPIDOGREL 75 MG TAB PO SCH (17:36)
[2016-10-08] MEDS: METOPROLOL TARTRATE 25 MG TAB PO SCH (20:25)
[2016-10-08] MEDS: CILOSTAZOL 100 MG TAB PO SCH (20:25)
[2016-10-08] MEDS: MELATONIN 3 MG TABLET PO SCH (20:25)
[2016-10-08 20:59] LABS: Glucose,Whole Blood 174 mg/dL (75-99)
[2016-10-08] MEDS ORDERED: FATTY ACIDS PO SCH (21:00)
[2016-10-08] MEDS ORDERED: OMEGA PO SCH (21:00)
[2016-10-08] MEDS ORDERED: FISH OIL PO SCH (21:00)
[2016-10-08] MEDS: ALBUTEROL NEBULIZED 2.5 MG/3 ML INHALATION SCH (21:11)
[2016-10-08] MEDS: INSULIN NPH/REG INSULIN 70/30 300 UNIT/3 ML VIAL SQ SCH (21:22)
[2016-10-08] MEDS ORDERED: FLUTICASONE 50MCG/SPRAY NASAL 16GM EA NOSTRIL PRN (22:31)
[2016-10-08] MEDS ORDERED: HEPARIN SODIUM,PORCINE 5,000 UNIT/ML 1 ML VIAL IV PRN (22:39)
[2016-10-08] MEDS: HYDROcodone/APAP 10-325MG 1 EACH TAB PO PRN (23:24)
[2016-10-08] MEDS: DOCUSATE 100 MG CAP PO SCH (23:25)
[2016-10-08 23:33] LABS: Glucose,Whole Blood 140 mg/dL (75-99)
[2016-10-09] MEDS: HEPARIN SODIUM,PORCINE/D5W PMX 25,000 UNIT in DEXTROSE/WATER 1 500ML.BAG IV SCH (03:54)
[2016-10-09] MEDS: HYDROcodone/APAP 10-325MG 1 EACH TAB PO PRN ×3 (05:52→20:40)
[2016-10-09 06:12] LABS: Glucose,Whole Blood 111 mg/dL (75-99)
[2016-10-09] MEDS: PANTOPRAZOLE 40 MG TABLET PO SCH (06:39)
[2016-10-09 06:43] LABS: Cholesterol 203 mg/dL (<200); HDL Cholesterol 52 mg/dL (40-60); Triglycerides 216 mg/dL (<150)
[2016-10-09] MEDS: ASPIRIN 325 MG TAB PO SCH (07:51)
[2016-10-09] MEDS: SERTRALINE 100 MG TAB PO SCH (07:51)
[2016-10-09] MEDS: GABAPENTIN 300 MG CAP PO SCH ×3 (07:51→20:39)
[2016-10-09] MEDS: CLOPIDOGREL 75 MG TAB PO SCH (07:51)
[2016-10-09] MEDS: METOPROLOL TARTRATE 25 MG TAB PO SCH ×2 (07:51→20:39)
[2016-10-09] MEDS: amLODIPine 5 MG TAB PO SCH (07:52)
[2016-10-09] MEDS: DOCUSATE 100 MG CAP PO SCH ×2 (07:52→20:40)
[2016-10-09] MEDS: CILOSTAZOL 100 MG TAB PO SCH ×2 (07:52→22:11)
[2016-10-09] MEDS: EZETIMIBE 10 MG TAB PO SCH (07:52)
[2016-10-09] MEDS: INSULIN NPH/REG INSULIN 70/30 300 UNIT/3 ML VIAL SQ SCH ×2 (07:53→22:11)
[2016-10-09] MEDS: ALBUTEROL NEBULIZED 2.5 MG/3 ML INHALATION SCH ×2 (08:27→20:49)
[2016-10-09] MEDS ORDERED: ASPIRIN 81 MG CHEW PO SCH (09:00)
--- NOTE | 2016-10-09 11:44 | CONS ---
DATE OF CONSULTATION: Marisabel Maravilla is a 70-year-old female who came in with discomfort in the chest which is substernal. She stated that it felt similar to the pain before she received her recent stent. She had a complex atherectomy followed by stenting for calcified LAD this month by Dr. Urbano. She is lying comfortably in bed and requesting salt. She cannot eat food without adequate amounts of salt. REVIEW OF SYSTEMS: No fever, chills, rigors. No cough or expectoration. No nausea, vomiting or diarrhea. No hematuria, dysuria, no strokes or seizures. No skin lesions or musculoskeletal complaints. Past medical history of coronary artery disease, peripheral vascular disease, CVA, hypertension, dyslipidemia, non-Q-wave myocardial infarction recently, stage III kidney disease. REVIEW OF SYSTEMS: No fever, chills, rigors. No cough or expectoration. No nausea, vomiting, or diarrhea. No hematuria, dysuria. No seizures. No recent strokes or seizures. Recent non-STEMI. Past history current smoker. No alcohol use. Medication list was reviewed and is documented in the chart. LABS: Reviewed. She has a borderline troponin leak. On examination, her vitals are stable. Blood pressure is 136/83 millimeters mercury, heart rate is in the 60s. She is afebrile, 97.6 degrees Celsius. Head and neck examination is normal. Heart sounds are normal. Lungs are clear to auscultation. EXTREMITIES: Warm. IMPRESSION: 1. Chest discomfort with borderline troponins. 2. Recent non-Q-wave myocardial infarction and complex atherectomy and stenting. 3. Peripheral vascular disease. 4. Chronic kidney disease stage III. 5. She is a current smoker. 6. The patient not compliant with statins. SUGGEST: I discussed with Dr. Urbano. We will proceed with medical management only at this time. I will start her on statins 20 mg p.o. daily and this should be increased to [address] Pereira did speak to her about the importance of taking statins after an [place] since she has severe peripheral vascular disease as well as coronary artery disease, I will also add Imdur 30 mg p.o. daily.
[2016-10-09] MEDS: ISOSORBIDE MONONITRATE ER 30 MG TAB.ER.24H PO SCH (11:47)
[2016-10-09] MEDS: ATORVASTATIN 20 MG TAB PO SCH (11:48)
--- NOTE | 2016-10-09 11:48 | P.PN ---
Subjective Principal diagnosis: Chest pain Patient is 70-year-old female who is in from a group home after she had developed substernal and left-sided chest pain tonight. The patient does state that it feels similar to the pain she had prior to receiving a stent. Patient also states that she had some difficulty with her breathing. She denied diaphoresis, vomiting, palpitations, lightheadedness or syncope. Objective - Vital Signs Vital signs: Vital Signs Temp 97.6 F 10/09/16 08:00 Pulse 80 10/09/16 08:39 Resp 19 10/09/16 08:00 BP 136/83 10/09/16 08:00 Pulse Ox 95 10/09/16 08:00 Intake & Output 10/08/16 10/09/16 10/09/16 18:59 06:59 18:59 Intake Total 464.928 485.140 Output Total 400 450 Balance 64.928 35.140 Weight 68.039 kg 66.1 kg Intake: IV 20 220 0.9 NS 20 220 Intake, IV Titration 144.928 265.140 Amount Heparin Sodium,Porcine/ 144.928 265.140 D5w Pmx 25,000 unit In Dextrose/Water 1 500ml. bag @ 12 UNITS/KG/HR 16. 32 mls/hr IV .[facility]H [facility] Rx #:[id number] Oral 300 Output: Urine 400 450 Other: Voiding Method Bedside Commode - Exam In general patient is alert and oriented 3 in no apparent distress HEENT head normocephalic and atraumatic Neck is supple no JVD no goiter no lymphadenopathy Cardiac exam reveals regular heart sounds S1 and S2 no gallops no murmurs Chest exam reveals a few scattered rhonchi bilaterally Abdomen is soft nontender no organomegaly with normal bowel sounds Extremity exam reveals no edema no cyanosis or clubbing Neurological examination reveals no gross deficit - Labs CBC & Chem 7: 10/08/16 01:30 10/08/16 01:30 Labs: Abnormal Lab Results - Last 24 Hours (Table) 10/08/16 10/08/16 10/08/16 Range/Units 12:56 14:10 14:10 APTT 34.0 H (22.0-30.0) sec POC Glucose (mg/dL) 125 H (75-99) mg/dL Troponin I 0.039 H* (0.000-0.034) ng/mL Triglycerides (<150) mg/dL Cholesterol (<200) mg/dL LDL Cholesterol, Calc (0-99) mg/dL 10/08/16 10/08/16 10/08/16 Range/Units 16:42 20:58 21:46 APTT 35.6 H (22.0-30.0) sec POC Glucose (mg/dL) 116 H 174 H (75-99) mg/dL Troponin I (0.000-0.034) ng/mL Triglycerides (<150) mg/dL Cholesterol (<200) mg/dL LDL Cholesterol, Calc (0-99) mg/dL 10/08/16 10/09/16 10/09/16 Range/Units 23:22 05:24 05:24 APTT 65.4 H (22.0-30.0) sec POC Glucose (mg/dL) 140 H (75-99) mg/dL Troponin I (0.000-0.034) ng/mL Triglycerides 216 H (<150) mg/dL Cholesterol 203 H (<200) mg/dL LDL Cholesterol, Calc 108 H (0-99) mg/dL 10/09/16 Range/Units 06:11 APTT (22.0-30.0) sec POC Glucose (mg/dL) 111 H (75-99) mg/dL Troponin I (0.000-0.034) ng/mL Triglycerides (<150) mg/dL Cholesterol (<200) mg/dL LDL Cholesterol, Calc (0-99) mg/dL Assessment and Plan Plan: #1 coronary artery disease status post drug eluting stent placement to proximal LAD during the last admission 2 weeks ago, patient presenting with [address] episode of chest pain and slight elevation in troponin levels #2 diabetes mellitus type 2 insulin-dependent #3 previous history of CVA with right sided facial droop #4 elevated d-dimer on presentation, VQ scan was intermediate probability for pulmonary embolism currently maintained on IV heparin, creatinine is elevated at 1.3 no computed tomography scan is done will monitor kidney function and assess further. #5 stage III chronic kidney disease #6 gastritis patient had an EGD recently is that revealed evidence of antral gastritis #7 underlying history of hypertension #8 underlying history of peripheral neuropathy maintained on gabapentin At this time patient is maintained on IV heparin Continue was current management medication reviewed, cardiology consultation has been requested
[2016-10-09 12:10] LABS: Glucose,Whole Blood 169 mg/dL (75-99)
[2016-10-09 17:31] LABS: Glucose,Whole Blood 200 mg/dL (75-99)
[2016-10-09] MEDS: MELATONIN 3 MG TABLET PO SCH (20:39)
[2016-10-09 20:53] LABS: Glucose,Whole Blood 250 mg/dL (75-99)
[2016-10-09 21:32] LABS: Appearance,Urine Clear (Clear); Bacteria,Urine Rare /hpf; Bilirubin,Urine Negative (Negative); Glucose,Urine (UA) 1+ (Negative); Ketones,Urine Negative (Negative); Leukocyte Esterase,Urine Negative (Negative); Mucus,Urine Rare /hpf; Nitrite,Urine Negative (Negative); Particle Count 971; Protein,Urine 2+ (Negative); RBC,Urine 5 /hpf (0-5); Specific Gravity,Urine 1.013 (1.001-1.035); Squamous Epithelial Cell,Urine 1 /hpf (0-4); UA Billing (MACRO vs. MICRO) MICRO; Urobilinogen,Urine <2.0 mg/dL (<2.0); WBC,Urine 6 /hpf (0-5)
[2016-10-10] MEDS: HEPARIN SODIUM,PORCINE/D5W PMX 25,000 UNIT in DEXTROSE/WATER 1 500ML.BAG IV SCH ×2 (03:30→23:56)
[2016-10-10] MEDS: HYDROcodone/APAP 10-325MG 1 EACH TAB PO PRN ×4 (04:20→22:05)
[2016-10-10] MEDS: NITROGLYCERIN SL TABS 0.4 MG TAB SUBLINGUAL PRN ×3 (05:06→05:19)
[2016-10-10 05:54] LABS: Glucose,Whole Blood 192 mg/dL (75-99)
[2016-10-10 06:42] LABS: Basophils % (A) 0 %; CH 29.8; CHCM 31.7; Eosinophils # (A) 0.3 k/uL (0-0.7); Eosinophils % (A) 4 %; HDW 2.59; HGB 9.1 gm/dL (11.4-16.0); Luc % (Auto) 1; Lymphocytes # (A) 2.1 k/uL (1.0-4.8); Lymphocytes % (A) 29 %; MCH 29.7 pg (25.0-35.0); MCHC 31.4 g/dL (31.0-37.0); MCV 94.3 fL (80.0-100.0); Monocytes # (A) 0.3 k/uL (0-1.0); Monocytes % (A) 4 %; Neutrophils # (A) 4.4 k/uL (1.3-7.7); Neutrophils % (A) 61 %; RBC 3.08 m/uL (3.80-5.40); RDW 14.9 % (11.5-15.5); WBC 7.2 k/uL (3.8-10.6); WBC (Perox) 7.16
[2016-10-10] MEDS: PANTOPRAZOLE 40 MG TABLET PO SCH (07:32)
[2016-10-10 08:09] LABS: Calcium 9.4 mg/dL (8.4-10.2); Potassium 5.6 mmol/L (3.5-5.1); Total Bilirubin 0.4 mg/dL (0.2-1.3); Total Protein 5.6 g/dL (6.3-8.2)
[2016-10-10] MEDS: ALBUTEROL NEBULIZED 2.5 MG/3 ML INHALATION SCH ×2 (09:10→20:17)
[2016-10-10] MEDS: INSULIN NPH/REG INSULIN 70/30 300 UNIT/3 ML VIAL SQ SCH ×2 (10:10→22:06)
[2016-10-10] MEDS: ISOSORBIDE MONONITRATE ER 30 MG TAB.ER.24H PO SCH (10:11)
[2016-10-10] MEDS: METOPROLOL TARTRATE 25 MG TAB PO SCH ×2 (10:11→19:51)
[2016-10-10] MEDS: ATORVASTATIN 20 MG TAB PO SCH (10:11)
[2016-10-10] MEDS: DOCUSATE 100 MG CAP PO SCH ×2 (10:11→19:51)
[2016-10-10] MEDS: SERTRALINE 100 MG TAB PO SCH (10:11)
[2016-10-10] MEDS: GABAPENTIN 300 MG CAP PO SCH ×3 (10:12→19:51)
[2016-10-10] MEDS: CILOSTAZOL 100 MG TAB PO SCH ×2 (10:12→19:51)
[2016-10-10] MEDS: amLODIPine 5 MG TAB PO SCH (10:12)
[2016-10-10] MEDS: EZETIMIBE 10 MG TAB PO SCH (10:12)
[2016-10-10] MEDS: ASPIRIN 325 MG TAB PO SCH (10:12)
[2016-10-10] MEDS: CLOPIDOGREL 75 MG TAB PO SCH (10:12)
--- NOTE | 2016-10-10 11:44 | P.PN ---
Subjective Principal diagnosis: Suspected PE Patient is doing fairly well today. She is still having intermittent chest pain. She is currently on IV heparin drip for suspected PE given intermittent V /Q scan. Objective - Vital Signs Vital signs: Vital Signs Temp 97.2 F L 10/10/16 08:00 Pulse 67 10/10/16 08:00 Resp 18 10/10/16 08:00 BP 145/78 10/10/16 08:00 Pulse Ox 96 10/10/16 08:00 Intake & Output 10/09/16 10/10/16 10/10/16 18:59 06:59 18:59 Intake Total 120 740 180 Output Total 600 400 250 Balance -480 340 -70 Weight 66.9 kg Intake: Intake, IV Titration 500 Amount Heparin Sodium,Porcine/ 500 D5w Pmx 25,000 unit In Dextrose/Water 1 500ml. bag @ 12 UNITS/KG/HR 16. 32 mls/hr IV .Q24H [facility] Rx #:[id number] Oral 120 240 180 Output: Urine 600 400 250 Other: Voiding Method Toilet Toilet # Voids 2 1 - Exam General: The patient is awake and alert, in no distress Eye: there is normal conjunctiva bilaterally. Neck: The neck is supple, there is no JVD. Cardiovascular: Normal S1-S2, no S3-S4, no murmurs. Respiratory: Lungs clear to auscultation bilaterally Gastrointestinal: Abdomen is soft, nontender Musculoskeletal: There is no pedal edema. Neurological:. Speech is normal. Skin: Skin is warm and dry - Labs CBC & Chem 7: 10/10/16 05:52 10/10/16 05:52 Labs: Abnormal Lab Results - Last 24 Hours (Table) 10/09/16 10/09/16 10/09/16 Range/Units 11:51 16:56 20:52 RBC (3.80-5.40) m/uL Hgb (11.4-16.0) gm/dL Hct (34.0-46.0) % APTT (22.0-30.0) sec Potassium (3.5-5.1) mmol/L Chloride (98-107) mmol/L Carbon Dioxide (22-30) mmol/L BUN (7-17) mg/dL Creatinine (0.52-1.04) mg/dL Glucose (74-99) mg/dL POC Glucose (mg/dL) 169 H 200 H 250 H (75-99) mg/dL AST (14-36) U/L Total Protein (6.3-8.2) g/dL Albumin (3.5-5.0) g/dL Urine Protein (Negative) Urine Glucose (UA) (Negative) Urine Blood (Negative) Urine WBC (0-5) /hpf Urine Bacteria (None) /hpf Urine Mucus (None) /hpf 10/09/16 10/10/16 10/10/16 Range/Units 21:10 05:52 05:52 RBC 3.08 L (3.80-5.40) m/uL Hgb 9.1 L (11.4-16.0) gm/dL Hct 29.0 L (34.0-46.0) % APTT (22.0-30.0) sec Potassium 5.6 H (3.5-5.1) mmol/L Chloride 111 H (98-107) mmol/L Carbon Dioxide 21 L (22-30) mmol/L BUN 36 H (7-17) mg/dL Creatinine 1.29 H (0.52-1.04) mg/dL Glucose 178 H (74-99) mg/dL POC Glucose (mg/dL) (75-99) mg/dL AST 9 L (14-36) U/L Total Protein 5.6 L (6.3-8.2) g/dL Albumin 3.2 L (3.5-5.0) g/dL Urine Protein 2+ H (Negative) Urine Glucose (UA) 1+ H (Negative) Urine Blood Trace H (Negative) Urine WBC 6 H (0-5) /hpf Urine Bacteria Rare H (None) /hpf Urine Mucus Rare H (None) /hpf 10/10/16 10/10/16 Range/Units 05:52 05:53 RBC (3.80-5.40) m/uL Hgb (11.4-16.0) gm/dL Hct (34.0-46.0) % APTT 59.5 H (22.0-30.0) sec Potassium (3.5-5.1) mmol/L Chloride (98-107) mmol/L Carbon Dioxide (22-30) mmol/L BUN (7-17) mg/dL Creatinine (0.52-1.04) mg/dL Glucose (74-99) mg/dL POC Glucose (mg/dL) 192 H (75-99) mg/dL AST (14-36) U/L Total Protein (6.3-8.2) g/dL Albumin (3.5-5.0) g/dL Urine Protein (Negative) Urine Glucose (UA) (Negative) Urine Blood (Negative) Urine WBC (0-5) /hpf Urine Bacteria (None) /hpf Urine Mucus (None) /hpf Assessment and Plan Plan: 1. Coronary artery disease status post drug-eluting stent to proximal LAD during last admission. Patient was seen and evaluated by cardiology. No further intervention planned. Continue optimal medical management. 2. Suspected PE on presentation, currently on IV heparin. I strongly doubt PE clinically as patient was not hypoxic or tachycardic. Her d-dimer was elevated. I would obtain ultrasound venous of the lower extremity to rule out DVT. I would also consult pulmonology for further evaluation and recommendations of anticoagulation. 3. Type 2 diabetes mellitus insulin-dependent 4. History of CVA with chronic right-sided facial droop 5. Coronary artery disease with history of myocardial infarction 6. Stage IIIB chronic kidney disease 7. Non-thrombotic troponin leak most likely secondary to uncontrolled systolic blood pressure 8. Acute kidney injury, mild 9. Persistent epigastric pain with GERD: Underwent EGD by gastroenterology last week. Findings of mild antral gastritis.
[2016-10-10 12:07] LABS: Glucose,Whole Blood 124 mg/dL (75-99)
--- NOTE | 2016-10-10 13:52 | US ---
EXAMINATION TYPE: US venous doppler duplex LE BI DATE OF EXAM: 10/10/2016 1:40 PM COMPARISON: NONE CLINICAL HISTORY: r/o DVT. SIDE PERFORMED: TECHNIQUE: The lower extremity deep venous system is examined utilizing real time linear array sonog bhaskar with graded compression, doppler sonography and color-flow sonography. VESSELS IMAGED: External Iliac Vein (EIV) Common Femoral Vein Deep Femoral Vein Greater Saphenous Vein * Femoral Vein Popliteal Vein Small Saphenous Vein * Proximal Calf Veins (* superficial vessels) Right Leg: Negative for DVT Left Leg: Negative for DVT IMPRESSION: 1. No diagnostic evidence of DVT as visualized.
--- NOTE | 2016-10-10 14:09 | P.PN ---
Subjective Principal diagnosis: Chest pain This is a pleasant 70-year-old female with known history of diabetes, hypertension, hyperlipidemia, COPD, prior CVA, peripheral vascular disease, coronary artery disease with prior stent placements. Most recently the patient was in the hospital earlier this month at which time she underwent angioplasty with stenting of the LAD. She presented to the hospital on this occasion with symptoms of midsternal chest discomfort. Troponin 0.09, 0.035, 0.039. Potassium today 5.6, BUN 36, creatinine 1.2. Dr. Cantu did have a discussion with Dr. Macias the patient's carburetor specialist and the decision was made to maximize medical therapy. She was seen and examined today, denied any further chest discomfort, hemodynamically stable. We will continue dual antiplatelet therapy , decrease aspirin 81 mg daily. Objective - Vital Signs Vital signs: Vital Signs Temp 97.2 F L 10/10/16 08:00 Pulse 67 10/10/16 08:00 Resp 18 10/10/16 08:00 BP 145/78 10/10/16 08:00 Pulse Ox 96 10/10/16 08:00 Intake & Output 10/09/16 10/10/16 10/10/16 18:59 06:59 18:59 Intake Total 120 740 180 Output Total 600 400 250 Balance -480 340 -70 Weight 66.9 kg Intake: Intake, IV Titration 500 Amount Heparin Sodium,Porcine/ 500 D5w Pmx 25,000 unit In Dextrose/Water 1 500ml. bag @ 12 UNITS/KG/HR 16. 32 mls/hr IV .Q24H [facility] Rx #:[id number] Oral 120 240 180 Output: Urine 600 400 250 Other: Voiding Method Toilet Toilet # Voids 2 1 - Exam PHYSICAL EXAMINATION: HEENT: Head is atraumatic, normocephalic. Pupils equal, round. Neck is supple. There is no elevated jugular venous pressure. HEART EXAMINATION: Heart S1, S2 normal. No murmur or gallop heard. CHEST EXAMINATION: Lungs are clear with mild diminished air entry to posterior bases. ABDOMEN: Soft, nontender. Bowel sounds are heard. No organomegaly noted. EXTREMITIES: 1+ peripheral pulses with no evidence of peripheral edema and no calf tenderness noted. NEUROLOGIC patient is awake, alert and oriented -3. - Labs CBC & Chem 7: 10/10/16 05:52 10/10/16 05:52 Labs: Abnormal Lab Results - Last 24 Hours (Table) 10/09/16 10/09/16 10/09/16 Range/Units 16:56 20:52 21:10 RBC (3.80-5.40) m/uL Hgb (11.4-16.0) gm/dL Hct (34.0-46.0) % APTT (22.0-30.0) sec Potassium (3.5-5.1) mmol/L Chloride (98-107) mmol/L Carbon Dioxide (22-30) mmol/L BUN (7-17) mg/dL Creatinine (0.52-1.04) mg/dL Glucose (74-99) mg/dL POC Glucose (mg/dL) 200 H 250 H (75-99) mg/dL AST (14-36) U/L Total Protein (6.3-8.2) g/dL Albumin (3.5-5.0) g/dL Urine Protein 2+ H (Negative) Urine Glucose (UA) 1+ H (Negative) Urine Blood Trace H (Negative) Urine WBC 6 H (0-5) /hpf Urine Bacteria Rare H (None) /hpf Urine Mucus Rare H (None) /hpf 10/10/16 10/10/16 10/10/16 Range/Units 05:52 05:52 05:52 RBC 3.08 L (3.80-5.40) m/uL Hgb 9.1 L (11.4-16.0) gm/dL Hct 29.0 L (34.0-46.0) % APTT 59.5 H (22.0-30.0) sec Potassium 5.6 H (3.5-5.1) mmol/L Chloride 111 H (98-107) mmol/L Carbon Dioxide 21 L (22-30) mmol/L BUN 36 H (7-17) mg/dL Creatinine 1.29 H (0.52-1.04) mg/dL Glucose 178 H (74-99) mg/dL POC Glucose (mg/dL) (75-99) mg/dL AST 9 L (14-36) U/L Total Protein 5.6 L (6.3-8.2) g/dL Albumin 3.2 L (3.5-5.0) g/dL Urine Protein (Negative) Urine Glucose (UA) (Negative) Urine Blood (Negative) Urine WBC (0-5) /hpf Urine Bacteria (None) /hpf Urine Mucus (None) /hpf 10/10/16 10/10/16 Range/Units 05:53 12:01 RBC (3.80-5.40) m/uL Hgb (11.4-16.0) gm/dL Hct (34.0-46.0) % APTT (22.0-30.0) sec Potassium (3.5-5.1) mmol/L Chloride (98-107) mmol/L Carbon Dioxide (22-30) mmol/L BUN (7-17) mg/dL Creatinine (0.52-1.04) mg/dL Glucose (74-99) mg/dL POC Glucose (mg/dL) 192 H 124 H (75-99) mg/dL AST (14-36) U/L Total Protein (6.3-8.2) g/dL Albumin (3.5-5.0) g/dL Urine Protein (Negative) Urine Glucose (UA) (Negative) Urine Blood (Negative) Urine WBC (0-5) /hpf Urine Bacteria (None) /hpf Urine Mucus (None) /hpf Assessment and Plan (1) Presence of stent in LAD coronary artery Status: Acute (2) Chest pain Status: Acute (3) Chronic renal failure Status: Acute (4) Diabetes Status: Acute (5) Elevated troponin Status: Acute (6) HTN (hypertension) Status: Acute (7) Hyperlipemia Status: Acute (8) Peripheral vascular disease Status: Acute Plan: From cardiology's perspective, we will continue the patient on her current medications which include dual antiplatelet therapy. We will decrease the aspirin to 81 mg daily. We will follow this patient with you now on an as- needed basis only, please don't hesitate to call with any questions. A follow- up appointment will be made with Dr. Macias in the office post discharge. DNP note has been reviewed, I agree with a documented findings and plan of care. Patient was seen and examined.
[2016-10-10 16:51] LABS: Glucose,Whole Blood 155 mg/dL (75-99)
--- NOTE | 2016-10-10 18:56 | P.CNPUL ---
History of Present Illness Consult date: 10/10/16 Requesting physician: Mallory Hernandez Reason for consult: chest pain Chief complaint: Chest pain History of present illness: This is a 70-year-old female with history of multiple medical problems including coronary artery disease, recent non-Q-wave myocardial infarction, stage III kidney disease, hypertension, severe peripheral vessel occlusive disease, patient was admitted this time with sudden onset of chest pain described as substernal in location, and radiating to the back. Not associated with any nausea vomiting or diaphoresis. Patient had a recent stenting of the calcified LAD by Dr. Macias, and she is normally not quite compliant with her diet and with her medications. For some reason, patient had a d-dimer which was abnormal, and a CT of the chest showed intermediate probability for pulmonary embolism. However the clinical history by itself is not suggestive of pulmonary embolism, and index of suspicion for pulmonary embolism is rather low. Venous Doppler was negative for DVT chest x-ray showed minimal atelectasis at the left base. On physical examination, her pain was reproducible, and she had tenderness over the anterior left side of the chest, and in the left parasternal area. Review of Systems 14 point review of systems were obtained, please refer to pertinent positives and negatives in HPI. Past Medical History Past Medical History: Asthma, Coronary Artery Disease (CAD), Chest Pain / Angina , COPD, CVA/TIA, Diabetes Mellitus, Deep Vein Thrombosis (DVT), Hyperlipidemia, Hypertension, Myocardial Infarction (MA), Osteoarthritis (OA), Pneumonia, Renal Disease, Vascular Disorder Additional Past Medical History / Comment(s): Pt recently admitted to [facility] on 09/20/16 with NSTEMI, hypertensive emergency and had PCI with stent. Other hx: COPD/purulent bronchitis and UTI, IDDM type II, DVT bilateral lower legs, cardiac murmur, congenital single right kidney, R nephrolithiasis per 05/2016 U/S , CKD stage III, difficulty sleeping, clausterphobia, CVA with chronic R facial droop, neuropathy bilateral hands and feet, PVD, falls. 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 Date of Last Stent Placement:: 09/21/16 Past Psychological History: Anxiety, Depression Additional Psychological History / Comment(s): pt stated has some mild depression d/t medical problems but not hopeless. Denies any thoughts of harming self or others, no suicidal ideations. Pt recently was placed at [facility]. She has been back home for about 4 weeks. Pt resides in an apartment. She uses a cane or a wheelchair. She does not drive. She has a legal guardian, Angelica Dai. Activities Concierge contacted LG who states she is wanting pt to discharge to custodial this time. Last discharge pt went home and was to have home care which did not have a chance to establish yet. Angelica states pt did not like [facility]. Pt states her LG has a manager union assigned to her and that this manager union (Em) takes her to appointments. She feels she needs assistance with housework. She states she has difficulty with washing up d/t being in a wheelchair and is too short for the sink. She cooks minimally. She would like a nebulizer. Smoking Status: Current every day smoker Past Alcohol Use History: None Reported Additional Past Alcohol Use History / Comment(s): Patient is a smoker of 2 packs per day for 55 years. She denies any medical marijuana, marijuana, street drug use. She denies any alcohol use or abuse. She has been on disability for long period of time. She is currently living alone. Past Drug Use History: None Reported - Past Family History Mother Family Medical History: Cancer, Diabetes Mellitus, Myocardial Infarction (MA) Additional Family Medical History / Comment(s): from aortic anurysm Father Family Medical History: Renal Disease Medications and Allergies Home Medications Medication Instructions Recorded Confirmed Type Cilostazol [Pletal] 100 mg PO BID 06/02/16 10/08/16 History Sertraline HCl [Zoloft] 100 mg PO DAILY 06/02/16 10/08/16 History Nitroglycerin Sl Tabs [Nitrostat] 0.4 mg SUBLINGUAL Q5M PRN 08/04/16 10/08/16 History Hydrocodone/Acetaminophen [[place] 1 tab PO Q8HR PRN 09/20/16 10/08/16 History 10-325] Albuterol Inhaler [Ventolin Hfa 2 puff INHALATION BID 10/08/16 10/08/16 History Inhaler] Gabapentin [Neurontin] 300 mg PO TID 10/08/16 10/08/16 History Melatonin 2 tab PO HS 10/08/16 10/08/16 History Metoprolol Tartrate [Lopressor] 75 mg PO BID 10/08/16 10/08/16 History [place]-3 Fatty Acids/Fish Oil [Fish 2,000 mg PO BID 10/08/16 10/08/16 History Oil 1,000 mg Softgel] Allergies Allergy/AdvReac Type Severity Reaction Status Date / Time Iodinated Contrast Media - Allergy Severe Anaphylaxis Verified 10/08/16 12:53 Oral and [Iodinated Contrast Media - IV Dye] nitrofurantoin Allergy Severe Anaphylaxis Verified 10/08/16 12:53 [From Macrobid] cephalexin monohydrate Allergy Swelling Verified 10/08/16 12:53 [From Keflex] ciprofloxacin Allergy Unknown Verified 10/08/16 12:53 Penicillins Allergy Swelling Verified 10/08/16 12:53 Sulfa (Sulfonamide Allergy Rash/Hives Verified 10/08/16 12:53 Antibiotics) Physical Exam Vitals: Vital Signs Temp Pulse Pulse Resp BP Pulse Ox 10/10/16 16:00 97.6 F 68 18 124/60 100 10/10/16 12:00 18 10/10/16 08:00 97.2 F L 67 18 145/78 96 10/10/16 05:24 97.0 F L 69 18 142/69 93 L 10/10/16 05:17 69 18 133/64 93 L 10/10/16 05:11 67 18 147/75 93 L 10/10/16 05:04 67 18 176/79 94 L 10/10/16 04:00 18 10/10/16 00:00 97.3 F L 71 16 141/61 98 10/09/16 21:01 76 10/09/16 20:49 77 10/09/16 20:00 97.2 F L 76 16 156/69 91 L Intake and Output 10/10/16 10/10/16 10/10/16 06:59 14:59 22:59 Intake Total 500 280 100 Output Total 200 250 300 Balance 300 30 -200 Intake: Intake, IV Titration 500 Amount Heparin Sodium,Porcine/ 500 D5w Pmx 25,000 unit In Dextrose/Water 1 500ml. bag @ 12 UNITS/KG/HR 16. 32 mls/hr IV .Q24H [facility] Rx #:[id number] Oral 280 100 Output: Urine 200 250 300 Other: Voiding Method Toilet Toilet Toilet # Voids 1 # Bowel Movements 1 Weight 66.9 kg Physical Exam: Revealed a 70-year-old female in no distress. HEENT:[Neck is supple.] [No neck masses.] [No thyromegaly.] [No JVD.] Chest: [Clear throughout, no crackles, no rhonchi, no wheezes. Positive tenderness in the left parasternal area, pain is reproducible.] Cardiac Exam: [Normal S1 and S2, no S3 gallop, no murmur.] Abdomen: [Soft, nontender, no megaly, no rebound, no guarding, normal bowel sounds.] Extremities: [No clubbing, no edema, no cyanosis.] Neurological Exam: [No focal neurologic deficit.] Results - Laboratory Findings CBC and BMP: 10/10/16 05:52 10/10/16 05:52 PT/INR, D-dimer PT 9.9 sec (9.0-12.0) 10/08/16 01:30 INR 1.0 (<1.1) 10/08/16 01:30 D-Dimer 3.21 mg/L FEU (<0.60) H 10/08/16 01:30 Abnormal lab findings: Abnormal Labs 10/08/16 10/08/16 10/08/16 01:30 01:30 01:30 RBC 3.18 L Hgb 9.4 L Hct 29.4 L APTT D-Dimer Potassium Chloride 112 H Carbon Dioxide 19 L BUN 39 H Creatinine 1.30 H Glucose 250 H POC Glucose (mg/dL) AST 11 L Total Creatine Kinase 25 L Troponin I Total Protein 5.6 L Albumin 3.3 L Triglycerides Cholesterol LDL Cholesterol, Calc Urine Protein Urine Glucose (UA) Urine Blood Urine WBC Urine Bacteria Urine Mucus 10/08/16 10/08/16 10/08/16 01:30 07:00 12:56 RBC Hgb Hct APTT 20.9 L D-Dimer 3.21 H Potassium Chloride Carbon Dioxide BUN Creatinine Glucose POC Glucose (mg/dL) 125 H AST Total Creatine Kinase Troponin I 0.035 H* Total Protein Albumin Triglycerides Cholesterol LDL Cholesterol, Calc Urine Protein Urine Glucose (UA) Urine Blood Urine WBC Urine Bacteria Urine Mucus 10/08/16 10/08/16 10/08/16 14:10 14:10 16:42 RBC Hgb Hct APTT 34.0 H D-Dimer Potassium Chloride Carbon Dioxide BUN Creatinine Glucose POC Glucose (mg/dL) 116 H AST Total Creatine Kinase Troponin I 0.039 H* Total Protein Albumin Triglycerides Cholesterol LDL Cholesterol, Calc Urine Protein Urine Glucose (UA) Urine Blood Urine WBC Urine Bacteria Urine Mucus 10/08/16 10/08/16 10/08/16 20:58 21:46 23:22 RBC Hgb Hct APTT 35.6 H D-Dimer Potassium Chloride Carbon Dioxide BUN Creatinine Glucose POC Glucose (mg/dL) 174 H 140 H AST Total Creatine Kinase Troponin I Total Protein Albumin Triglycerides Cholesterol LDL Cholesterol, Calc Urine Protein Urine Glucose (UA) Urine Blood Urine WBC Urine Bacteria Urine Mucus 10/09/16 10/09/16 10/09/16 05:24 05:24 06:11 RBC Hgb Hct APTT 65.4 H D-Dimer Potassium Chloride Carbon Dioxide BUN Creatinine Glucose POC Glucose (mg/dL) 111 H AST Total Creatine Kinase Troponin I Total Protein Albumin Triglycerides 216 H Cholesterol 203 H LDL Cholesterol, Calc 108 H Urine Protein Urine Glucose (UA) Urine Blood Urine WBC Urine Bacteria Urine Mucus 10/09/16 10/09/16 10/09/16 11:51 16:56 20:52 RBC Hgb Hct APTT D-Dimer Potassium Chloride Carbon Dioxide BUN Creatinine Glucose POC Glucose (mg/dL) 169 H 200 H 250 H AST Total Creatine Kinase Troponin I Total Protein Albumin Triglycerides Cholesterol LDL Cholesterol, Calc Urine Protein Urine Glucose (UA) Urine Blood Urine WBC Urine Bacteria Urine Mucus 10/09/16 10/10/16 10/10/16 21:10 05:52 05:52 RBC 3.08 L Hgb 9.1 L Hct 29.0 L APTT D-Dimer Potassium 5.6 H Chloride 111 H Carbon Dioxide 21 L BUN 36 H Creatinine 1.29 H Glucose 178 H POC Glucose (mg/dL) AST 9 L Total Creatine Kinase Troponin I Total Protein 5.6 L Albumin 3.2 L Triglycerides Cholesterol LDL Cholesterol, Calc Urine Protein 2+ H Urine Glucose (UA) 1+ H Urine Blood Trace H Urine WBC 6 H Urine Bacteria Rare H Urine Mucus Rare H 10/10/16 10/10/16 10/10/16 05:52 05:53 12:01 RBC Hgb Hct APTT 59.5 H D-Dimer Potassium Chloride Carbon Dioxide BUN Creatinine Glucose POC Glucose (mg/dL) 192 H 124 H AST Total Creatine Kinase Troponin I Total Protein Albumin Triglycerides Cholesterol LDL Cholesterol, Calc Urine Protein Urine Glucose (UA) Urine Blood Urine WBC Urine Bacteria Urine Mucus 10/10/16 16:50 RBC Hgb Hct APTT D-Dimer Potassium Chloride Carbon Dioxide BUN Creatinine Glucose POC Glucose (mg/dL) 155 H AST Total Creatine Kinase Troponin I Total Protein Albumin Triglycerides Cholesterol LDL Cholesterol, Calc Urine Protein Urine Glucose (UA) Urine Blood Urine WBC Urine Bacteria Urine Mucus - Diagnostic Findings Chest x-ray: image reviewed Additional studies: VQ scan was reviewed Assessment and Plan Plan: Impression: Multiple medical problems includin coronary artery disease status post drug eluting stent placement to proximal LAD couple of weeks ago. Patient presented with new episode of chest pain and slight elevation of troponin levels. 2 chest wall pain 3 abnormal VQ scan however the index of suspicion for pulmonary embolism is rather low. 4 stage III chronic kidney disease 5 history of multiple comorbidities including hypertension, peripheral neuropathy, previous CVA with right sided facial droop, diabetes/type 2 insulin- dependent. Recommendation: Agree with the present treatment plan as per the admitting physician and as per cardiology on the case. Again index of suspicion for pulmonary embolism is very low. No need for heparin for thromboembolic disease unless it is felt to be necessary for her RDI presentation and her previous MA. We'll continue to follow. Time with Patient: Greater than 30
[2016-10-10 20:53] LABS: Glucose,Whole Blood 220 mg/dL (75-99)
[2016-10-10] MEDS: MELATONIN 3 MG TABLET PO SCH (22:05)
[2016-10-11] MEDS: HYDROcodone/APAP 10-325MG 1 EACH TAB PO PRN ×2 (05:06→13:13)
[2016-10-11 06:26] LABS: Glucose,Whole Blood 170 mg/dL (75-99)
[2016-10-11] MEDS: PANTOPRAZOLE 40 MG TABLET PO SCH (06:57)
[2016-10-11 08:44] VITALS: PULSE 72; TEMP 97.9
[2016-10-11] MEDS: ALBUTEROL NEBULIZED 2.5 MG/3 ML INHALATION SCH (08:44)
[2016-10-11] MEDS: METOPROLOL TARTRATE 25 MG TAB PO SCH (08:48)
[2016-10-11] MEDS: EZETIMIBE 10 MG TAB PO SCH (08:48)
[2016-10-11] MEDS: INSULIN NPH/REG INSULIN 70/30 300 UNIT/3 ML VIAL SQ SCH (08:48)
[2016-10-11] MEDS: CILOSTAZOL 100 MG TAB PO SCH (08:49)
[2016-10-11] MEDS: GABAPENTIN 300 MG CAP PO SCH (08:49)
[2016-10-11] MEDS: SERTRALINE 100 MG TAB PO SCH (08:49)
[2016-10-11] MEDS: amLODIPine 5 MG TAB PO SCH (08:49)
[2016-10-11] MEDS: CLOPIDOGREL 75 MG TAB PO SCH (08:49)
[2016-10-11] MEDS: DOCUSATE 100 MG CAP PO SCH (08:49)
[2016-10-11] MEDS: ATORVASTATIN 20 MG TAB PO SCH (08:49)
[2016-10-11] MEDS: ISOSORBIDE MONONITRATE ER 30 MG TAB.ER.24H PO SCH (08:49)
[2016-10-11] MEDS ORDERED: ASPIRIN 81 MG CHEW PO SCH (09:00)
--- NOTE | 2016-10-11 12:31 | P.DS ---
Providers Date of admission: 10/08/16 07:27 Expected date of discharge: 10/11/16 Attending physician: Jenna Pereira Consults: 10/08/16 07:11 Consult Physician Urgent Consulting Provider: Kwasi Gonzalez Consult Reason/Comments: chest pain Do you want consulting provider notified?: Yes 10/10/16 10:44 Consult Physician Routine Consulting Provider: Inna Baum Reason/Comments: r/o PE Do you want consulting provider notified?: Yes Primary care physician: [facility] Course: 1. Coronary artery disease status post drug-eluting stent to proximal LAD during last admission. Patient was seen and evaluated by cardiology. No further intervention planned. Continue optimal medical management. 2. Suspected PE on presentation, very less likely clinically. Ultrasound Doppler of the lower extremity negative for DVT. Cleared by pulmonology to discontinue IV heparin. 3. Type 2 diabetes mellitus insulin-dependent 4. History of CVA with chronic right-sided facial droop 5. Coronary artery disease with history of myocardial infarction 6. Stage IIIB chronic kidney disease 7. 8. Acute kidney injury, mild 9. Persistent epigastric pain with GERD: Underwent EGD by gastroenterology last week. Findings of mild antral gastritis. Patient Condition at Discharge: Fair Plan - Discharge Summary Discharge Medication List Sertraline HCl [Zoloft] 100 mg PO DAILY 06/02/16 [History] Nitroglycerin Sl Tabs [Nitrostat] 0.4 mg SUBLINGUAL Q5M PRN 08/04/16 [History] Hydrocodone/Acetaminophen [[place] 10-325] 1 tab PO Q8HR PRN 09/20/16 [History] Aspirin 81 mg PO DAILY #90 chew 09/26/16 [Rx] Clopidogrel [Plavix] 75 mg PO DAILY #90 tab 09/26/16 [Rx] Ezetimibe [Zetia] 10 mg PO DAILY #90 tab 09/26/16 [Rx] Insulin NPH/Reg Insulin 70/30 [humuLIN 70/30 VIAL] 20 unit SQ BID #5 vial [Rx] Pantoprazole [Protonix] 40 mg PO AC-BRKFST #60 tab 10/04/16 [Rx] amLODIPine [Norvasc] 5 mg PO DAILY #30 tab 10/04/16 [Rx] Albuterol Inhaler [Ventolin Hfa Inhaler] 2 puff INHALATION BID 10/08/16 [History ] Gabapentin [Neurontin] 300 mg PO TID 10/08/16 [History] Melatonin 2 tab PO HS 10/08/16 [History] Metoprolol Tartrate [Lopressor] 75 mg PO BID 10/08/16 [History] [place]-3 Fatty Acids/Fish Oil [Fish Oil 1,000 mg Softgel] 2,000 mg PO BID [History] Follow up Appointment(s)/Referral(s): Mallory Hernandez MD [Primary Care Provider] - 3 Days Discharge Disposition: HOME WITH HOME HEALTH SERVICES
[2016-10-11 12:38] LABS: Glucose,Whole Blood 160 mg/dL (75-99)
--- NOTE | 2016-10-11 15:06 | P.PN ---
Subjective Principal diagnosis: Chest pain This is a 70-year-old female with history of multiple medical problems including coronary artery disease, recent non-Q-wave myocardial infarction, stage III kidney disease, hypertension, severe peripheral vessel occlusive disease, patient was admitted this time with sudden onset of chest pain described as substernal in location, and radiating to the back. Not associated with any nausea vomiting or diaphoresis. Patient had a recent stenting of the calcified LAD by Dr. Macias, and she is normally not quite compliant with her diet and with her medications. For some reason, patient had a d-dimer which was abnormal, and a CT of the chest showed intermediate probability for pulmonary embolism. However the clinical history by itself is not suggestive of pulmonary embolism, and index of suspicion for pulmonary embolism is rather low. Venous Doppler was negative for DVT chest x-ray showed minimal atelectasis at the left base. On physical examination, her pain was reproducible, and she had tenderness over the anterior left side of the chest, and in the left parasternal area. Patient was reevaluated today on 10/11/2016, continues to have some chest pain and chest wall tenderness in the left parasternal area. Patient denies any shortness of breath no cough no wheezing, no fever, no chills, no hemoptysis. Patient is being considered for possible discharge planning today. I believe she was already cleared for discharge by cardiology. Objective - Vital Signs Vital signs: Vital Signs Temp 97.9 F 10/11/16 08:00 Pulse 72 10/11/16 12:00 Resp 16 10/11/16 12:00 BP 140/70 10/11/16 12:00 Pulse Ox 93 L 10/11/16 12:00 Intake & Output 10/10/16 10/11/16 10/11/16 18:59 06:59 18:59 Intake Total 380 500 180 Output Total 550 Balance -170 500 180 Weight 67.7 kg 67.7 kg Intake: Intake, IV Titration 500 Amount Heparin Sodium,Porcine/ 500 D5w Pmx 25,000 unit In Dextrose/Water 1 500ml. bag @ 12 UNITS/KG/HR 16. 32 mls/hr IV .Q[facility]H [facility] Rx #:[id number] Oral 380 180 Output: Urine 550 Other: Voiding Method Toilet Toilet Toilet # Voids 1 1 # Bowel Movements 1 - Exam Physical Exam: Revealed a 70-year-old female in no distress. HEENT:[Neck is supple.] [No neck masses.] [No thyromegaly.] [No JVD.] Chest: [Clear throughout, no crackles, no rhonchi, no wheezes. Positive tenderness in the left parasternal area, pain is reproducible.] Cardiac Exam: [Normal S1 and S2, no S3 gallop, no murmur.] Abdomen: [Soft, nontender, no megaly, no rebound, no guarding, normal bowel sounds.] Extremities: [No clubbing, no edema, no cyanosis.] Neurological Exam: [No focal neurologic deficit.] - Labs CBC & Chem 7: 10/10/16 05:52 10/10/16 05:52 Labs: Abnormal Lab Results - Last 24 Hours (Table) 10/10/16 10/10/16 10/11/16 Range/Units 16:50 20:52 05:31 APTT 51.6 H (22.0-30.0) sec POC Glucose (mg/dL) 155 H 220 H (75-99) mg/dL 10/11/16 10/11/16 Range/Units 06:24 12:28 APTT (22.0-30.0) sec POC Glucose (mg/dL) 170 H 160 H (75-99) mg/dL Assessment and Plan Plan: Impression: Multiple medical problems includin coronary artery disease status post drug eluting stent placement to proximal LAD couple of weeks ago. Patient presented with new episode of chest pain and slight elevation of troponin levels. 2 chest wall pain 3 abnormal VQ scan however the index of suspicion for pulmonary embolism is rather low. 4 stage III chronic kidney disease 5 history of multiple comorbidities including hypertension, peripheral neuropathy, previous CVA with right sided facial droop, diabetes/type 2 insulin- dependent. Recommendation: Agree with the present treatment plan as per the admitting physician and as per cardiology on the case. Again index of suspicion for pulmonary embolism is very low. Agree with discharge planning if cleared by cardiology today, we'll see on when necessary basis. Time with Patient: Less than 30
[2016-10-11 15:48] VITALS: BP 181/79; RESP 18
== END 2016-10-11 15:39 | disposition home health service (06) | DRG 281 ==
LOC: EC 00:10 → 3OBS 07:27 → OBSVTOIN 07:27 → 6SEL 11:20
PROVIDERS: ADMIT Internal Medicine; ATTEND Internal Medicine
DX: I25.10 Atherosclerotic heart disease of native coronary artery without angina pectoris (principal); I21.4 Non-ST elevation (NSTEMI) myocardial infarction; N17.9 Acute kidney failure, unspecified; E11.22 Type 2 diabetes mellitus with diabetic chronic kidney disease; Q60.0 Renal agenesis, unilateral; E11.42 Type 2 diabetes mellitus with diabetic polyneuropathy; J44.9 Chronic obstructive pulmonary disease, unspecified; N18.3 Chronic kidney disease, stage 3 (moderate); K21.9 Gastro-esophageal reflux disease without esophagitis; I12.9 Hypertensive chronic kidney disease with stage 1 through stage 4 chronic kidney disease, or unspecified chronic kidney disease; K29.60 Other gastritis without bleeding; E78.5 Hyperlipidemia, unspecified; F17.200 Nicotine dependence, unspecified, uncomplicated; I45.10 Unspecified right bundle-branch block; T46.6X6A Underdosing of antihyperlipidemic and antiarteriosclerotic drugs, initial encounter; M19.90 Unspecified osteoarthritis, unspecified site; R94.2 Abnormal results of pulmonary function studies; R07.9 Chest pain, unspecified; E11.51 Type 2 diabetes mellitus with diabetic peripheral angiopathy without gangrene; R29.6 Repeated falls; G47.9 Sleep disorder, unspecified; F40.240 Claustrophobia; F41.9 Anxiety disorder, unspecified; R74.8 Abnormal levels of other serum enzymes; F32.9 Major depressive disorder, single episode, unspecified; Z87.442 Personal history of urinary calculi; Z79.899 Other long term (current) drug therapy; Z79.4 Long term (current) use of insulin; Z79.82 Long term (current) use of aspirin; Z88.0 Allergy status to penicillin; Z95.5 Presence of coronary angioplasty implant and graft; Z82.49 Family history of ischemic heart disease and other diseases of the circulatory system; Z83.3 Family history of diabetes mellitus; Z88.2 Allergy status to sulfonamides; Z86.718 Personal history of other venous thrombosis and embolism; Z87.440 Personal history of urinary (tract) infections; Z87.01 Personal history of pneumonia (recurrent); Z86.19 Personal history of other infectious and parasitic diseases; Z87.09 Personal history of other diseases of the respiratory system; Z88.1 Allergy status to other antibiotic agents; Z91.041 Radiographic dye allergy status; Z91.81 History of falling; Z98.890 Other specified postprocedural states; Z79.02 Long term (current) use of antithrombotics/antiplatelets; Z79.891 Long term (current) use of opiate analgesic; Z91.14 Patient's other noncompliance with medication regimen; Z91.11 Patient's noncompliance with dietary regimen; I69.392 Facial weakness following cerebral infarction; Z80.9 Family history of malignant neoplasm, unspecified; Z84.1 Family history of disorders of kidney and ureter; Z90.49 Acquired absence of other specified parts of digestive tract; Z90.710 Acquired absence of both cervix and uterus; Z89.422 Acquired absence of other left toe(s)
CPT/HCPCS: 36415; 71010; 78582; 80053; 80061; 81001; 82550; 82553; 83735; 83880; 84484; 85025; 85379; 85610; 85730; 93005; 93970; 94640; 96365; 96366; 96375; 96376; 99285

== ENCOUNTER 2017-04-17 17:22 | Emergency (ER) | payer MEDICARE, OTHER ==
[2017-04-17] MEDS ORDERED: METOCLOPRAMIDE 5 MG/ML 2 ML VIAL IVP STA (17:52)
[2017-04-17] MEDS ORDERED: MECLIZINE 12.5 MG TAB PO STA (17:52)
[2017-04-17] MEDS ORDERED: HYDROcodone/APAP 5-325MG 1 EACH TAB PO STA (17:52)
[2017-04-17 18:06] LABS: Basophils # (A) 0.1 k/uL (0-0.2); Basophils % (A) 1 %; CH 30.1; Eosinophils # (A) 0.2 k/uL (0-0.7); Eosinophils % (A) 2 %; HCT 42.3 % (34.0-46.0); HGB 13.2 gm/dL (11.4-16.0); Luc # (Auto) 0.07; Luc % (Auto) 1; Lymphocytes % (A) 20 %; MCH 29.5 pg (25.0-35.0); MCHC 31.1 g/dL (31.0-37.0); MCV 94.7 fL (80.0-100.0); Mean Platelet Volume 7.2; Monocytes # (A) 0.4 k/uL (0-1.0); Monocytes % (A) 4 %; Neutrophils # (A) 7.4 k/uL (1.3-7.7); Neutrophils % (A) 73 %; RBC 4.46 m/uL (3.80-5.40); RDW 14.8 % (11.5-15.5); WBC 10.2 k/uL (3.8-10.6); WBC (Perox) 10.59
--- NOTE | 2017-04-17 18:08 | ED ---
Dizziness HPI - General Chief Complaint: Dizziness Stated Complaint: Dizziness/Weakness Time Seen by Provider: 04/17/17 17:25 Source: patient, EMS, RN notes reviewed Mode of arrival: EMS Limitations: no limitations - History of Present Illness Initial Comments: 71-year-old female presented emergency department for chief complaint of dizziness. Patient states she's been having dizziness last 2 weeks she did see her PCP who gave her intrarectally with vertigo. She states is not helping she ran out of her Antivert states that she's had increased nausea bowel discomfort and worsening dizziness. She states that she does take her time but states he doesn't help. Patient states she has not had a workup for this. Patient that she's had multiple hospital and missions recently. Patient denies any chest pain today states she had chest pain 4 days ago. Denies any increased shortness of breath. Patient does state that she does normally have shortness breath secondary to her heavy smoking for 55 years. Patient denies fever, chills. She does admit to right on multiple medications including Antivert, amlodipine, nitro. She states that she has not felt well not go to her doctor to get her prescriptions. - Related Data Home Medications Medication Instructions Recorded Confirmed Sertraline HCl [Zoloft] 100 mg PO DAILY 06/02/16 04/17/17 Albuterol Inhaler [Ventolin Hfa 2 puff INHALATION RT-TID 10/08/16 04/17/17 Inhaler] Melatonin 6 mg PO HS 10/08/16 04/17/17 Gabapentin 600 mg PO BID 04/17/17 04/17/17 Insulin NPH/Reg Insulin 70/30 18 unit SQ BID 04/17/17 04/17/17 [humuLIN 70/30 VIAL] oxyCODONE-APAP 10-325MG [Percocet 1 tab PO TID PRN 04/17/17 04/17/17 10-325 mg] Previous Rx's Medication Instructions Recorded Aspirin 81 mg PO DAILY #90 chew 09/26/16 Clopidogrel [Plavix] 75 mg PO DAILY #90 tab 09/26/16 Ezetimibe [Zetia] 10 mg PO DAILY #90 tab 09/26/16 Pantoprazole [Protonix] 40 mg PO AC-BRKFST #60 tab 10/04/16 Meclizine [Antivert] 25 mg PO BID PRN #10 tab 04/17/17 Nitroglycerin Sl Tabs [Nitrostat] 0.4 mg SUBLINGUAL Q5M PRN #10 tab 04/17/17 Allergies Allergy/AdvReac Type Severity Reaction Status Date / Time Iodinated Contrast- Oral and Allergy Severe Anaphylaxis Verified 04/17/17 18:50 IV Dye [Iodinated Contrast Media - IV Dye] nitrofurantoin Allergy Severe Anaphylaxis Verified 04/17/17 18:50 [From Macrobid] cephalexin monohydrate Allergy Swelling Verified 04/17/17 18:50 [From Keflex] ciprofloxacin Allergy Unknown Verified 04/17/17 18:50 Penicillins Allergy Swelling Verified 04/17/17 18:50 Sulfa (Sulfonamide Allergy Rash/Hives Verified 04/17/17 18:50 Antibiotics) Review of Systems ROS Statement: Those systems with pertinent positive or pertinent negative responses have been documented in the HPI. ROS Other: All systems not noted in ROS Statement are negative. Past Medical History Past Medical History: Asthma, Coronary Artery Disease (CAD), Chest Pain / Angina , COPD, CVA/TIA, Diabetes Mellitus, Deep Vein Thrombosis (DVT), Hyperlipidemia, Hypertension, Myocardial Infarction ([place]), Osteoarthritis (OA), Pneumonia, Renal Disease, Vascular Disorder Additional Past Medical History / Comment(s): Pt recently admitted to [facility] on 09/20/16 with NSTEMI, hypertensive emergency and had PCI with stent. Other hx: COPD/purulent bronchitis and UTI, IDDM type II, DVT bilateral lower legs, cardiac murmur, congenital single right kidney, R nephrolithiasis per 05/2016 [place] , CKD stage III, difficulty sleeping, clausterphobia, CVA with chronic R facial droop, neuropathy bilateral hands and feet, PVD, falls. 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 Date of Last Stent Placement:: 09/21/16 Past Psychological History: Anxiety, Depression Smoking Status: Current every day smoker Past Alcohol Use History: None Reported Past Drug Use History: None Reported - Past Family History Mother Family Medical History: Cancer, Diabetes Mellitus, Myocardial Infarction ([place]) Additional Family Medical History / Comment(s): from aortic anurysm Father Family Medical History: Renal Disease General Exam Limitations: no limitations General appearance: alert, in no apparent distress Head exam: Present: atraumatic, normocephalic, normal inspection Eye exam: Present: normal appearance, PERRL, EOMI. Absent: scleral icterus, conjunctival injection, periorbital swelling ENT exam: Present: normal exam, normal oropharynx, mucous membranes moist Neck exam: Present: normal inspection, full ROM. Absent: tenderness, meningismus, lymphadenopathy Respiratory exam: Present: normal lung sounds bilaterally. Absent: respiratory distress, wheezes, rales, rhonchi, stridor Cardiovascular Exam: Present: regular rate, normal rhythm, normal heart sounds. Absent: systolic murmur, diastolic murmur, rubs, gallop, clicks GI/Abdominal exam: Present: soft, normal bowel sounds. Absent: distended, tenderness, guarding, rebound, rigid Neurological exam: Present: alert, oriented X3, CN II-XII intact, reflexes normal, other (GCS 15 NIH 0). Absent: motor sensory deficit Skin exam: Present: warm, dry, intact, normal color. Absent: rash Course Vital Signs 04/17/17 17:29 Temperature 99 F Pulse Rate 68 Respiratory 18 Rate Blood Pressure 162/72 O2 Sat by Pulse 96 Oximetry EKG Findings - EKG Comments: EKG Findings:: EKG performed at 17:38 normal sinus rhythm incomplete right bundle beverly block with a rate of 68 [place] 162 QRS 118 QT/QTC 422/448 Medical Decision Making - Medical Decision Making 71-year-old female presented emergency department for dizziness. Patient's been having ongoing dizziness for over 2 weeks did see her PCP for this. Patient CT, lab work were reviewed. Patient has mild elevation of her troponin though reviewing her medical record she seems to have some chronic elevation. Patient has no current chest pain. Patient was able to ambulate with mild assistance. Patient states she normally uses a walker or wheelchair at home. She states she has chronic pain of her lower extremities from her neuropathy. Patient's EKG shows no acute changes. Patient be discharged at this time with close follow-up return parameters were discussed. - Lab Data Result diagrams: 04/17/17 17:55 04/17/17 17:55 Lab Results 04/17/17 04/17/17 04/17/17 Range/Units 17:55 17:55 17:55 WBC 10.2 (3.8-10.6) k/uL RBC 4.46 (3.80-5.40) m/uL Hgb 13.2 (11.4-16.0) gm/dL Hct 42.3 (34.0-46.0) % MCV 94.7 (80.0-100.0) fL MCH 29.5 (25.0-35.0) pg MCHC 31.1 (31.0-37.0) g/dL RDW 14.8 (11.5-15.5) % Plt Count 310 (150-450) k/uL Neutrophils % 73 % Lymphocytes % 20 % Monocytes % 4 % Eosinophils % 2 % Basophils % 1 % Neutrophils # 7.4 (1.3-7.7) k/uL Lymphocytes # 2.0 (1.0-4.8) k/uL Monocytes # 0.4 (0-1.0) k/uL Eosinophils # 0.2 (0-0.7) k/uL Basophils # 0.1 (0-0.2) k/uL PT 10.9 (9.0-12.0) sec INR 1.1 (<1.2) Sodium 139 (137-145) mmol/L Potassium 5.2 H (3.5-5.1) mmol/L Chloride 108 H (98-107) mmol/L Carbon Dioxide 23 (22-30) mmol/L Anion Gap 8 mmol/L BUN 27 H (7-17) mg/dL Creatinine 1.19 H (0.52-1.04) mg/dL Est GFR (MDRD) Af Amer 54 (>60 ml/min/1.73 sqM) Est GFR (MDRD) Non-Af 45 (>60 ml/min/1.73 sqM) Glucose 208 H (74-99) mg/dL Calcium 9.6 (8.4-10.2) mg/dL Magnesium 1.6 (1.6-2.3) mg/dL Total Bilirubin 0.3 (0.2-1.3) mg/dL AST 13 L (14-36) U/L ALT 15 (9-52) U/L Alkaline Phosphatase 108 (38-126) U/L Troponin I (0.000-0.034) ng/mL Total Protein 6.7 (6.3-8.2) g/dL Albumin 3.7 (3.5-5.0) g/dL Lipase 32 (23-300) U/L 11/27/17 Range/Units 17:55 WBC (3.8-10.6) k/uL RBC (3.80-5.40) m/uL Hgb (11.4-16.0) gm/dL Hct (34.0-46.0) % MCV (80.0-100.0) fL MCH (25.0-35.0) pg MCHC (31.0-37.0) g/dL RDW (11.5-15.5) % Plt Count (150-450) k/uL Neutrophils % % Lymphocytes % % Monocytes % % Eosinophils % % Basophils % % Neutrophils # (1.3-7.7) k/uL Lymphocytes # (1.0-4.8) k/uL Monocytes # (0-1.0) k/uL Eosinophils # (0-0.7) k/uL Basophils # (0-0.2) k/uL PT (9.0-12.0) sec INR (<1.2) Sodium (137-145) mmol/L Potassium (3.5-5.1) mmol/L Chloride (98-107) mmol/L Carbon Dioxide (22-30) mmol/L Anion Gap mmol/L BUN (7-17) mg/dL Creatinine (0.52-1.04) mg/dL Est GFR (MDRD) Af Amer (>60 ml/min/1.73 sqM) Est GFR (MDRD) Non-Af (>60 ml/min/1.73 sqM) Glucose (74-99) mg/dL Calcium (8.4-10.2) mg/dL Magnesium (1.6-2.3) mg/dL Total Bilirubin (0.2-1.3) mg/dL AST (14-36) U/L ALT (9-52) U/L Alkaline Phosphatase (38-126) U/L Troponin I 0.256 H* (0.000-0.034) ng/mL Total Protein (6.3-8.2) g/dL Albumin (3.5-5.0) g/dL Lipase (23-300) U/L Disposition Clinical Impression: Dizziness, Chronic leg pain, Medication refill Disposition: HOME SELF-CARE Condition: Stable Instructions: Dizziness (ED) Additional Instructions: Please return to the Emergency Department if symptoms worsen or any other concerns. Prescriptions: Meclizine [Antivert] 25 mg PO BID PRN #10 tab PRN Reason: Nausea Nitroglycerin Sl Tabs [Nitrostat] 0.4 mg SUBLINGUAL Q5M PRN #10 tab PRN Reason: Chest Pain Referrals: Mallory Hernandez MD [Primary Care Provider] - 1-2 days Time of Disposition: 20:05
[2017-04-17 18:10] LABS: INR 1.1 (<1.2); Prothrombin Time 10.9 sec (9.0-12.0)
[2017-04-17 18:24] LABS: Calcium 9.6 mg/dL (8.4-10.2); Magnesium 1.6 mg/dL (1.6-2.3); Potassium 5.2 mmol/L (3.5-5.1); Total Bilirubin 0.3 mg/dL (0.2-1.3); Total Protein 6.7 g/dL (6.3-8.2)
--- NOTE | 2017-04-17 18:37 | XR ---
EXAMINATION TYPE: XR chest 2V DATE OF EXAM: 04/17/2017 COMPARISON: 10/08/2016 HISTORY: Chest pain TECHNIQUE: Frontal and lateral views of the chest are obtained. FINDINGS: There is no heart failure nor confluent pneumonic infiltrate. There is no sign of pleural effusion. Thoracic aorta is atheromatous. Bony thorax is intact. IMPRESSION: No active cardiopulmonary disease. There is clearing of minimal pulmonary congestion com pared to old exam.
--- NOTE | 2017-04-17 18:59 | CT ---
EXAMINATION TYPE: CT brain wo con DATE OF EXAM: 04/17/2017 COMPARISON: 09/28/2016 HISTORY: Dizziness and weakness. CT DLP: 1043 mGycm Automated exposure control for dose reduction was used. FINDINGS: There is cerebral cortical atrophy. There is no mass effect nor midline shift. There is no sign of in tracranial hemorrhage. The calvarium is intact. IMPRESSION: CEREBRAL ATROPHY. NO ACUTE INTRACRANIAL ABNORMALITY. NO CHANGE.
[2017-04-17] MEDS ORDERED: SCOPOLAMINE 1.5MG/72HR PATCH TRANSDERM STA (20:01)
[2017-04-17 20:06] VITALS: BP 138/61; PULSE 76; RESP 20; TEMP 98.2
== END 2017-04-17 20:40 | disposition home or self-care (01) ==
LOC: EC 17:22
DX: R42 Dizziness and giddiness (principal); M79.604 Pain in right leg; M79.605 Pain in left leg; G89.29 Other chronic pain; Z76.0 Encounter for issue of repeat prescription; R40.2412 Glasgow coma scale score 13-15, at arrival to emergency department; J44.9 Chronic obstructive pulmonary disease, unspecified; E11.9 Type 2 diabetes mellitus without complications; F41.9 Anxiety disorder, unspecified; F32.9 Major depressive disorder, single episode, unspecified; Z86.73 Personal history of transient ischemic attack (TIA), and cerebral infarction without residual deficits; F17.200 Nicotine dependence, unspecified, uncomplicated; Z79.4 Long term (current) use of insulin; Z79.899 Other long term (current) drug therapy; Z91.041 Radiographic dye allergy status; Z88.8 Allergy status to other drugs, medicaments and biological substances; Z88.1 Allergy status to other antibiotic agents; Z88.0 Allergy status to penicillin; Z88.2 Allergy status to sulfonamides
CPT/HCPCS: 36415; 93005; 80053; 83690; 83735; 84484; 85025; 85610; 71020; 70450; 99285; 96374; J2765

== ENCOUNTER 2017-08-17 19:39 | Observation (INO) | payer MEDICARE, OTHER ==
[2017-08-17] MEDS ORDERED: oxyCODONE-APAP 10-325MG 1 EACH TAB PO STA (20:16)
[2017-08-17] MEDS ORDERED: hydrALAZINE HCL 20 MG/ML 1 ML VIAL IVP STA ×2 (20:18→21:52)
--- NOTE | 2017-08-17 20:20 | ED ---
General Adult HPI - General Chief complaint: Extremity Injury, Lower Stated complaint: leg pain Time Seen by Provider: 08/17/17 19:48 Source: EMS, RN notes reviewed Mode of arrival: EMS Limitations: no limitations - History of Present Illness Initial comments: Patient is a 71-year-old female presented to the emergency room today by EMS, with chief complaint of left foot pain. Patient states that her friend called EMS because she did not hear knocking on the door. She states she was sleeping. She does admit that she's had increased pain it's noticed some swelling to the left foot area. She admits that she had surgery 2 years ago they removed 3 digits. She states she's noticed some swelling recently. Does admit some pain. States she's not had a pain pill and is currently due. She takes oxycodone at home. Patient denies any complaints. Her blood pressure is elevated here the emergency room 200 greater than 100. She states that she has been taking her medication. She has no other complaints other symptoms at this time. Patient denies any recent fever, chills, shortness of breath, chest pain, abdominal pain, nausea or vomiting, dysuria or hematuria, constipation or diarrhea, headaches or visual changes, or any other complaints. - Related Data Home Medications Medication Instructions Recorded Confirmed Sertraline HCl [Zoloft] 100 mg PO DAILY 06/02/16 08/17/17 Albuterol Inhaler [Ventolin Hfa 2 puff INHALATION RT-TID 10/08/16 08/17/17 Inhaler] Melatonin 6 mg PO HS 10/08/16 08/17/17 Gabapentin 600 mg PO BID 04/17/17 08/17/17 oxyCODONE-APAP 10-325MG [Percocet 1 tab PO TID PRN 04/17/17 08/17/17 10-325 mg] Cilostazol [Pletal] 100 mg PO BID 08/17/17 08/17/17 Docusate [Colace] 100 mg PO DAILY 08/17/17 08/17/17 Fluticasone Nasal [place] [Flonase 1 spray EA NOSTRIL RT-DAILY PRN 08/17/17 Nasal [place]] Insulin Aspart Protam & Aspart 22 unit SQ HS 08/17/17 08/17/17 [NovoLOG MIX 70-30 Flexpen] Insulin Aspart Protam & Aspart 18 unit SQ QAM 08/17/17 08/17/17 [Novolog Mix 70-30 Flexpen Syrn] Lisinopril [Prinivil] 10 mg PO DAILY 08/17/17 08/17/17 Previous Rx's Medication Instructions Recorded Aspirin 81 mg PO DAILY #90 chew 09/26/16 Clopidogrel [Plavix] 75 mg PO DAILY #90 tab 09/26/16 Ezetimibe [Zetia] 10 mg PO DAILY #90 tab 09/26/16 Pantoprazole [Protonix] 40 mg PO AC-BRKFST #60 tab 10/04/16 Meclizine [Antivert] 25 mg PO BID PRN #10 tab 04/17/17 Nitroglycerin Sl Tabs [Nitrostat] 0.4 mg SUBLINGUAL Q5M PRN #10 tab 04/17/17 Allergies Allergy/AdvReac Type Severity Reaction Status Date / Time Iodinated Contrast- Oral and Allergy Severe Anaphylaxis Verified 08/17/17 20:09 IV Dye [Iodinated Contrast Media - IV Dye] nitrofurantoin Allergy Severe Anaphylaxis Verified 08/17/17 20:09 [From Macrobid] cephalexin monohydrate Allergy Swelling Verified 08/17/17 20:09 [From Keflex] ciprofloxacin Allergy Unknown Verified 08/17/17 20:09 Penicillins Allergy Swelling Verified 08/17/17 20:09 Sulfa (Sulfonamide Allergy Rash/Hives Verified 08/17/17 20:09 Antibiotics) Review of Systems ROS Statement: Those systems with pertinent positive or pertinent negative responses have been documented in the HPI. ROS Other: All systems not noted in ROS Statement are negative. Past Medical History Past Medical History: Asthma, Coronary Artery Disease (CAD), Chest Pain / Angina , COPD, CVA/TIA, Diabetes Mellitus, Deep Vein Thrombosis (DVT), Hyperlipidemia, Hypertension, Myocardial Infarction ([place]), Osteoarthritis (OA), Pneumonia, Renal Disease, Vascular Disorder Additional Past Medical History / Comment(s): Pt recently admitted to [facility] on 09/20/16 with NSTEMI, hypertensive emergency and had PCI with stent. Other hx: COPD/purulent bronchitis and UTI, IDDM type II, DVT bilateral lower legs, cardiac murmur, congenital single right kidney, R nephrolithiasis per 05/2016 [place] , CKD stage III, difficulty sleeping, clausterphobia, CVA with chronic R facial droop, neuropathy bilateral hands and feet, PVD, falls. 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 Date of Last Stent Placement:: 09/21/16 Past Psychological History: Anxiety, Depression Smoking Status: Current every day smoker Past Alcohol Use History: None Reported Past Drug Use History: None Reported - Past Family History Mother Family Medical History: Cancer, Diabetes Mellitus, Myocardial Infarction ([place]) Additional Family Medical History / Comment(s): from aortic anurysm Father Family Medical History: Renal Disease General Exam - General Exam Comments Initial Comments: General: The patient is awake and alert, in no distress, and does not appear acutely ill. Eye: Pupils are equal, round and reactive to light, extra-ocular movements are intact. No nystagmus. There is normal conjunctiva bilaterally. No signs of icterus. Ears, nose, mouth and throat: There are moist mucous membranes and no oral lesions. Neck: The neck is supple, there is no tenderness or JVD. Cardiovascular: There is a regular rate and rhythm. No murmur, rub or gallop is appreciated. Respiratory: Lungs are clear to auscultation, respirations are non-labored, breath sounds are equal. No wheezes, stridor, rales, or rhonchi. Musculoskeletal: Normal ROM, no tenderness. Strength 5/5. Sensation intact. Pulses equal bilaterally 2+. Neurological: A&O x 3. CN II-XII intact, There are no obvious motor or sensory deficits. Coordination appears grossly intact. Speech is normal. Skin: He does have some mild swelling and mild redness to the left foot. Digits 2 through 4 are missing on the left. Surgically removed. No open wounds. No drainage. No fluctuant area. Psychiatric: Cooperative, appropriate mood & affect, normal judgment. Limitations: no limitations Course Vital Signs 08/17/17 08/17/17 08/17/17 19:44 20:14 22:02 Temperature 98.3 F Pulse Rate 77 66 75 Respiratory 18 18 18 Rate Blood Pressure 224/104 211/108 224/98 O2 Sat by Pulse 94 L 95 97 Oximetry 08/17/17 08/17/17 08/17/17 22:05 22:35 23:08 Temperature Pulse Rate 88 73 76 Respiratory 18 18 Rate Blood Pressure 200/89 209/81 O2 Sat by Pulse 96 96 Oximetry 08/17/17 23:30 Temperature Pulse Rate 78 Respiratory 18 Rate Blood Pressure 198/84 O2 Sat by Pulse 96 Oximetry - Reevaluation(s) Reevaluation #1: 08/17/17 21:22 Patient's labs been reviewed and are unremarkable. Currently awaiting a ultrasound to rule out any blood clot. Her x-ray of the left foot is negative. Patient did mention to nursing staff that she was having a burning sensation in her back and chest she states she forgot to tell us that she's had a cough congestion believe she has bronchitis. She states she did see the family doctor for this 2 weeks ago who gave her some Mucinex which states she's not Any Better. Chest X-Ray Will Be Added and Patient Is Requesting Albuterol Inhaler. We Will Give Her a DuoNeb Treatment to See If It Helps Her Symptoms. Patient Will Be Continued to Be Monitored. Medical Decision Making - Medical Decision Making Patient's x-ray is negative for any acute abnormality. Patient's ultrasound negative for any sign of blood clot. Patient started to complain about chest pain while she was here the emergency room. Cardiac enzymes have been added EKG shows no acute changes. Patient blood pressures been elevated. Given several doses of blood pressure medication. At this time blood pressure still remains elevated patient will be admitted as chest pain has developed and serial enzymes have been ordered. - Lab Data Result diagrams: 08/17/17 20:29 08/17/17 20:29 Lab Results 08/17/17 08/17/17 08/17/17 Range/Units 20:29 20:29 20:29 WBC 7.3 (3.8-10.6) k/uL RBC 3.83 (3.80-5.40) m/uL Hgb 11.9 (11.4-16.0) gm/dL Hct 34.6 (34.0-46.0) % MCV 90.2 (80.0-100.0) fL MCH 31.0 (25.0-35.0) pg MCHC 34.4 (31.0-37.0) g/dL RDW 13.3 (11.5-15.5) % Plt Count 282 (150-450) k/uL Neutrophils % 60 % Lymphocytes % 29 % Monocytes % 5 % Eosinophils % 4 % Basophils % 1 % Neutrophils # 4.4 (1.3-7.7) k/uL Lymphocytes # 2.1 (1.0-4.8) k/uL Monocytes # 0.4 (0-1.0) k/uL Eosinophils # 0.3 (0-0.7) k/uL Basophils # 0.0 (0-0.2) k/uL PT 9.6 (9.0-12.0) sec INR 1.0 (<1.2) APTT 21.7 L (22.0-30.0) sec Sodium 140 (137-145) mmol/L Potassium 5.3 H (3.5-5.1) mmol/L Chloride 107 (98-107) mmol/L Carbon Dioxide 24 (22-30) mmol/L Anion Gap 9 mmol/L BUN 28 H (7-17) mg/dL Creatinine 1.19 H (0.52-1.04) mg/dL Est GFR (CKD-EPI)AfAm 53 (>60 ml/min/1.73 sqM) Est GFR (CKD-EPI)NonAf 46 (>60 ml/min/1.73 sqM) Glucose 165 H (74-99) mg/dL Calcium 9.2 (8.4-10.2) mg/dL Total Bilirubin 0.3 (0.2-1.3) mg/dL AST 13 L (14-36) U/L ALT 13 (9-52) U/L Alkaline Phosphatase 97 (38-126) U/L Total Protein 6.1 L (6.3-8.2) g/dL Albumin 3.3 L (3.5-5.0) g/dL Disposition Clinical Impression: Hypertension, Left foot pain, Chest pain Disposition: ADMITTED IP TO THIS [facility] Condition: Stable Referrals: Mallory Hernandez MD [Primary Care Provider] - 1-2 days Time of Disposition: 23:37
[2017-08-17 20:43] LABS: Basophils % (A) 1 %; Eosinophils # (A) 0.3 k/uL (0-0.7); Eosinophils % (A) 4 %; HCT 34.6 % (34.0-46.0); HGB 11.9 gm/dL (11.4-16.0); Lymphocytes # (A) 2.1 k/uL (1.0-4.8); Lymphocytes % (A) 29 %; MCHC 34.4 g/dL (31.0-37.0); MCV 90.2 fL (80.0-100.0); Mean Platelet Volume 6.7; Monocytes # (A) 0.4 k/uL (0-1.0); Monocytes % (A) 5 %; Neutrophils # (A) 4.4 k/uL (1.3-7.7); Neutrophils % (A) 60 %; Platelet Count 282 k/uL (150-450); RBC 3.83 m/uL (3.80-5.40); RDW 13.3 % (11.5-15.5); WBC 7.3 k/uL (3.8-10.6)
[2017-08-17 20:53] LABS: Albumin 3.3 g/dL (3.5-5.0); Calcium 9.2 mg/dL (8.4-10.2); Potassium 5.3 mmol/L (3.5-5.1); Total Bilirubin 0.3 mg/dL (0.2-1.3); Total Protein 6.1 g/dL (6.3-8.2)
[2017-08-17 20:58] LABS: Prothrombin Time 9.6 sec (9.0-12.0)
[2017-08-17 21:08] LABS: Partial Thromboplastin Time 21.7 sec (22.0-30.0)
--- NOTE | 2017-08-17 21:08 | XR ---
PROCEDURE: XR foot complete LT, 3 views DATE AND TIME: 08/17/2017 8:41 PM REFERRING PHYSICIAN: Kyaw Hernandez CLINICAL INDICATION: PHH, Pain with history diabetes TECHNIQUE: Department protocol. COMPARISON: 03/11/2014 FINDINGS: Patient is status post resection of middle 3 toes. There is no fracture or malalignment. No cortical erosion or focal osteopenia to suggest acute osteom yelitis. There appears to be soft tissue swelling. There is no soft tissue emphysema or radiopaque foreign body. IMPRESSION: NO ACUTE RADIOGRAPHIC PROCESS.
[2017-08-17] MEDS ORDERED: IPRATROPIUM-ALBUTEROL 3 ML NEB INHALATION STA (21:21)
[2017-08-17] MEDS ORDERED: MORPHINE SULFATE/PF 10MG/10ML VL IV STA (21:52)
[2017-08-17] MEDS ORDERED: ENALAPRILAT 1.25 MG/ML 1 ML VIAL IVP STA (22:37)
--- NOTE | 2017-08-17 22:42 | US ---
EXAMINATION TYPE: US venous doppler duplex LE LT DATE OF EXAM: 08/17/2017 10:21 PM COMPARISON: NONE CLINICAL HISTORY: Pain. Left leg pain. SIDE PERFORMED: Left TECHNIQUE: The lower extremity deep venous system is examined utilizing real time linear array sonog bhaskar with graded compression, doppler sonography and color-flow sonography. VESSELS IMAGED: External Iliac Vein (EIV) Common Femoral Vein Deep Femoral Vein Femoral Vein Popliteal Vein Small Saphenous Vein * Proximal Calf Veins (* superficial vessels) FINDINGS: Grayscale, color doppler, spectral doppler imaging performed of the deep veins of the lower extremities. There is normal flow, compressibility, vascular waveforms. IMPRESSION: NEGATIVE FOR DVT, LEFT LOWER EXTREMITY.
--- NOTE | 2017-08-17 22:55 | XR ---
EXAMINATION: XR chest 2V DATE AND TIME: 08/17/2017 10:32 PM ORDERING PROVIDER: Kyaw Hernandez CLINICAL INDICATION: cough TECHNIQUE: PA and lateral COMPARISON: 04/10/2017 DESCRIPTION: The lungs are clear. The pleural spaces are negative. The cardiac silhouette is not enlarged. Tortuous aorta redemonstrated. The skeletal structures are intact without focal findings. The soft tissues are unremarkable. IMPRESSION: NO ACUTE PROCESS.
[2017-08-17] MEDS ORDERED: ASPIRIN 81 MG PO STA (23:37)
[2017-08-17] MEDS ORDERED: SODIUM CHLORIDE 0.9% 1,000 ML IV ONE (23:37)
[2017-08-17] MEDS ORDERED: hydrALAZINE HCL 20 MG/ML 1 ML VIAL IVP PRN (23:39)
[2017-08-17] MEDS ORDERED: FLUTICASONE 50MCG/SPRAY NASAL 16GM EA NOSTRIL PRN (23:41)
[2017-08-17] MEDS ORDERED: MECLIZINE 25 MG TAB PO PRN (23:41)
[2017-08-18] MEDS: oxyCODONE-APAP 10-325MG 1 EACH TAB PO PRN ×2 (01:03→10:28)
[2017-08-18 01:20] VITALS: BMI 27.7
[2017-08-18] MEDS: MELATONIN 3 MG TABLET PO SCH ×2 (01:21→21:51)
[2017-08-18 03:25] LABS: Troponin I 0.018 ng/mL (0.000-0.034)
[2017-08-18 05:51] LABS: Glucose,Whole Blood 131 mg/dL (75-99)
[2017-08-18] MEDS: PANTOPRAZOLE 40 MG TABLET PO SCH (06:38)
[2017-08-18] MEDS: ALBUTEROL NEBULIZED 2.5 MG/3 ML INHALATION SCH ×3 (08:19→19:35)
[2017-08-18 08:33] LABS: Cholesterol 227 mg/dL (<200); HDL Cholesterol 37 mg/dL (40-60); LDL Cholesterol,Calculated 128 mg/dL (0-99); Triglycerides 312 mg/dL (<150)
[2017-08-18 08:43] LABS: Creatine Kinase MB 1.1 ng/mL (0.0-2.4); Troponin I 0.023 ng/mL (0.000-0.034)
[2017-08-18] MEDS ORDERED: ASPIRIN 325 MG TAB PO SCH (09:00)
--- NOTE | 2017-08-18 10:19 | CONS ---
CONSULTATION Marisabel is a 71-year-old lady with history of coronary artery disease, status post angioplasty of LAD in September of 2016, peripheral vascular disease, hypertension, dyslipidemia, chronic renal insufficiency, who was brought to the hospital as she was not responding to calls from the caregiver. Police had to go in and break the door down and she was found to be sleepy and not appropriately responding from what I am told. Came to the ER where they thought that she was having chest discomfort and they admitted her to the hospital. At the time of my evaluation, she is pain free. Hemodynamically stable and in no apparent distress. She has had 3 sets of cardiac enzymes that are all within normal limits. LDL cholesterol is elevated. Hemoglobin is 13.3. Her predominant symptom seems to be pain in her left foot and also discomfort in her left arm. Her clinical presentation is not consistent with acute myocardial ischemia and I am not planning on doing any further workup at this time. She has had 3 sets of troponins that are all within normal limits at 0.01, 0.01 and 0.02. PAST MEDICAL HISTORY: Past medical history is significant for CAD status post angioplasty, hypertension, COPD. MEDICATIONS: Current medications include aspirin, Plavix, Apresoline, Antivert, melatonin, sublingual nitroglycerin. ALLERGIES: Allergic to IV DYE, KEFLEX, CIPRO, PENICILLIN, SULFA. FAMILY HISTORY: Family history is negative for premature coronary artery disease. SOCIAL HISTORY: Social history is negative for smoking, EtOH abuse, or drug abuse. REVIEW OF SYSTEMS: HEENT is unremarkable. CARDIAC: As described above. RESPIRATORY: Negative. GI: Negative. GENITOURINARY: Negative. ALLERGIES/IMMUNOLOGY: Negative. SKIN: Negative. MUSCULOSKELETAL: Significant for the left foot pain. PSYCHOSOCIAL: Negative. ENDOCRINE: Negative. HEMATOLOGICAL: Negative. DERM: Negative. CONSTITUTIONAL: Negative. ONCOLOGICAL: Negative. Rest of the system review is not relevant. PHYSICAL EXAMINATION: On exam, comfortable at rest. Vital signs are stable. There is jugular venous distention. Chest exam reveals good air entry bilaterally. Heart exam reveals first and second heart sounds. No gallop. No murmur. Abdomen is soft, nontender. Examination of the extremities did not reveal any edema. Peripheral pulses are palpable. ASSESSMENT: 1. Atypical chest pain. 2. Left foot pain. 3. History of coronary artery disease, status post angioplasty. PLAN: From cardiac standpoint, I do not think she requires any further evaluation. Her primary symptom of foot pain and she probably needs to have placement issues addressed. Thank you for allowing me to participate in the care of this pleasant lady. KIRILL / DENILSON: [id number] /
[2017-08-18] MEDS: CLOPIDOGREL 75 MG TAB PO SCH (10:27)
[2017-08-18 11:46] LABS: Glucose,Whole Blood 174 mg/dL (75-99)
--- NOTE | 2017-08-18 13:09 | P.HPIM ---
History of Present Illness H&P Date: 08/18/17 Chief Complaint: Altered mental status This is a 71-year-old female with a complex past medical history who presented to the emergency room brought by EMS after she was found to be lethargic. Apparently her neighbor was unable to walk around and called police who broke into her apartment and found her to be lethargic. She was evaluated by EMS and was brought to the emergency room. By the time she arrived to the emergency room she was awake and alert. She was noted to have an elevated blood pressure with systolic blood pressure greater than to 10. She was complaining of chest pain. She was admitted to telemetry monitoring and cardiology consulted. Her 12-lead EKG showed no acute ischemic changes. Serial troponin were negative. When I saw her today, patient is complaining of nonspecific pain in her back, left shoulder, and chest. She is also complaining of a lot of pain in her left foot. 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 On exam her left foot appeared warm. There is no skin changes. There is amputation of the second third and fourth toe noted. Dorsalis pedis pulses palpable. Her left foot appears slightly swollen compared to the right. Patient said that her pain is severe and is not well controlled. Unfortunately this patient is known to have pain medication seeking behavior which make evaluating her pain more challenging. Patient also admitted that she add a lot of salt to her food at home against my recommendations. She said that she is taking her medication as prescribed but unfortunately she is known to have a history of noncompliance with her medication. She continues to smoke approximately 1 pack per day. Review of Systems Review of system: 14 points review of systems were obtained and were negative except to what were mentioned in the HPI. Past Medical History Past Medical History: Asthma, Coronary Artery Disease (CAD), Chest Pain / Angina , COPD, CVA/TIA, Diabetes Mellitus, Deep Vein Thrombosis (DVT), Hyperlipidemia, Hypertension, Myocardial Infarction (AL), Osteoarthritis (OA), Pneumonia, Renal Disease, Vascular Disorder Additional Past Medical History / Comment(s): Pt recently admitted to [facility] on 09/20/16 with NSTEMI, hypertensive emergency and had PCI with stent. Other hx: COPD/purulent bronchitis and UTI, IDDM type II, DVT bilateral lower legs, cardiac murmur, congenital single right kidney, R nephrolithiasis per 05/2016 [place] , CKD stage III, difficulty sleeping, clausterphobia, CVA with chronic R facial droop, neuropathy bilateral hands and feet, PVD, falls. 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 Date of Last Stent Placement:: 09/21/16 Past Psychological History: Anxiety, Depression Additional Psychological History / Comment(s): pt stated has some mild depression d/t medical problems but not hopeless. Denies any thoughts of harming self or others, no suicidal ideations. Pt recently was placed at [facility]. She has been back home for about 4 weeks. Pt resides in an apartment. She uses a cane or a wheelchair. She does not drive. She has a legal guardian, Angelica Malaika. Senior Auditor contacted who states she is wanting pt to discharge to [facility] this time. Last discharge pt went home and was to have home care which did not have a chance to establish yet. Angelica states pt did not like [facility]. Pt states her LG has a pediatric clinical nurse specialist assigned to her and that this pediatric clinical nurse specialist (Em) takes her to appointments. She feels she needs assistance with housework. She states she has difficulty with washing up d/t being in a wheelchair and is too short for the sink. She cooks minimally. She would like a nebulizer. Smoking Status: Current every day smoker Past Alcohol Use History: None Reported Additional Past Alcohol Use History / Comment(s): Patient is a smoker of 2 packs per day for 55 years. She denies any medical marijuana, marijuana, street drug use. She denies any alcohol use or abuse. She has been on disability for long period of time. She is currently living alone. Past Drug Use History: None Reported - Past Family History Mother Family Medical History: Cancer, Diabetes Mellitus, Myocardial Infarction (AL) Additional Family Medical History / Comment(s): from aortic anurysm Father Family Medical History: Renal Disease Medications and Allergies Home Medications Medication Instructions Recorded Confirmed Type Sertraline HCl [Zoloft] 100 mg PO DAILY 06/02/16 08/17/17 History Aspirin 81 mg PO DAILY #90 chew 09/26/16 08/17/17 Rx Clopidogrel [Plavix] 75 mg PO DAILY #90 tab 09/26/16 08/17/17 Rx Ezetimibe [Zetia] 10 mg PO DAILY #90 tab 09/26/16 08/17/17 Rx Pantoprazole [Protonix] 40 mg PO AC-BRKFST #60 tab 10/04/16 08/17/17 Rx Albuterol Inhaler [Ventolin Hfa 2 puff INHALATION RT-TID 10/08/16 08/17/17 History Inhaler] Melatonin 6 mg PO HS 10/08/16 08/17/17 History Gabapentin 600 mg PO BID 04/17/17 08/17/17 History Meclizine [Antivert] 25 mg PO BID PRN #10 tab 04/17/17 08/17/17 Rx Nitroglycerin Sl Tabs [Nitrostat] 0.4 mg SUBLINGUAL Q5M PRN #10 tab 04/17/17 Rx oxyCODONE-APAP 10-325MG [Percocet 1 tab PO TID PRN 04/17/17 08/17/17 History 10-325 mg] Cilostazol [Pletal] 100 mg PO BID 08/17/17 08/17/17 History Docusate [Colace] 100 mg PO DAILY 08/17/17 08/17/17 History Fluticasone Nasal [place] [Flonase 1 spray EA NOSTRIL RT-DAILY PRN 08/17/17 History Nasal [place]] Insulin Aspart Protam & Aspart 22 unit SQ HS 08/17/17 08/17/17 History [NovoLOG MIX 70-30 Flexpen] Insulin Aspart Protam & Aspart 18 unit SQ QAM 08/17/17 08/17/17 History [Novolog Mix 70-30 Flexpen Syrn] Lisinopril [Prinivil] 10 mg PO DAILY 08/17/17 08/17/17 History Allergies Allergy/AdvReac Type Severity Reaction Status Date / Time Iodinated Contrast- Oral and Allergy Severe Anaphylaxis Verified 08/17/17 20:09 IV Dye [Iodinated Contrast Media - IV Dye] nitrofurantoin Allergy Severe Anaphylaxis Verified 08/17/17 20:09 [From Macrobid] cephalexin monohydrate Allergy Swelling Verified 08/17/17 20:09 [From Keflex] ciprofloxacin Allergy Unknown Verified 08/17/17 20:09 Penicillins Allergy Swelling Verified 08/17/17 20:09 Sulfa (Sulfonamide Allergy Rash/Hives Verified 08/17/17 20:09 Antibiotics) Physical Exam Vitals: Vital Signs Temp Pulse Pulse Resp BP BP Pulse Ox 08/18/17 10:06 97.7 F 61 17 96 08/18/17 08:21 68 95 08/18/17 04:00 98.0 F 68 18 158/79 95 08/18/17 01:10 74 18 08/18/17 01:05 98.5 F 74 18 109/89 97 08/18/17 00:18 97.7 F 74 16 199/91 96 08/17/17 23:37 97 08/17/17 23:30 78 18 198/84 96 08/17/17 23:08 76 18 209/81 96 08/17/17 22:35 73 18 200/89 96 08/17/17 22:05 88 08/17/17 22:02 75 18 224/98 97 08/17/17 20:14 66 18 211/108 95 08/17/17 19:44 98.3 F 77 18 224/104 94 L Intake and Output 08/17/17 08/18/17 08/18/17 22:59 06:59 14:59 Intake Total 10 120 Output Total 75 Balance -65 120 Intake: Intake, IV Titration 10 Amount Sodium Chloride 0.9% 1, 10 000 ml @ 20 mls/hr IV . Q24H ONE Rx#:[id number] Oral 120 Output: Urine 75 Other: Voiding Method Bedpan Bedpan # Voids 1 Weight 64.41 kg 54 kg General: The patient is awake and alert, in no distress Eye: there is normal conjunctiva bilaterally. Neck: The neck is supple, there is no JVD. Cardiovascular: Normal S1-S2, no S3-S4, no murmurs. Respiratory: Lungs clear to auscultation bilaterally Gastrointestinal: Abdomen is soft, nontender Musculoskeletal: There is no pedal edema. Neurological:. Speech is normal. Skin: Skin is warm and dry Results CBC & Chem 7: 08/17/17 20:29 08/17/17 20:29 Labs: Abnormal Lab Results - Last 24 Hours (Table) 08/17/17 08/17/17 08/18/17 Range/Units 20:29 20:29 05:49 APTT 21.7 L (22.0-30.0) sec Potassium 5.3 H (3.5-5.1) mmol/L BUN 28 H (7-17) mg/dL Creatinine 1.19 H (0.52-1.04) mg/dL Glucose 165 H (74-99) mg/dL POC Glucose (mg/dL) 131 H (75-99) mg/dL AST 13 L (14-36) U/L Total Protein 6.1 L (6.3-8.2) g/dL Albumin 3.3 L (3.5-5.0) g/dL Triglycerides (<150) mg/dL Cholesterol (<200) mg/dL LDL Cholesterol, Calc (0-99) mg/dL HDL Cholesterol (40-60) mg/dL 08/18/17 08/18/17 Range/Units 07:55 11:37 APTT (22.0-30.0) sec Potassium (3.5-5.1) mmol/L BUN (7-17) mg/dL Creatinine (0.52-1.04) mg/dL Glucose (74-99) mg/dL POC Glucose (mg/dL) 174 H (75-99) mg/dL AST (14-36) U/L Total Protein (6.3-8.2) g/dL Albumin (3.5-5.0) g/dL Triglycerides 312 H (<150) mg/dL Cholesterol 227 H (<200) mg/dL LDL Cholesterol, Calc 128 H (0-99) mg/dL HDL Cholesterol 37 L (40-60) mg/dL Thrombosis Risk Factor Assmnt - Choose All That Apply Any of the Below Risk Factors Present?: Yes Each Factor Represents 1 point: Abnormal pulmonary function (COPD), Acute AL Other Risk Factors: Yes Each Risk Factor Represents 2 Points: Age 61-74 years Other congenital or acquired thrombophilia - If yes, enter type in comment: No Thrombosis Risk Factor Assessment Total Risk Factor Score: 4 Thrombosis Risk Factor Assessment Level: Moderate Risk Assessment and Plan Assessment: 1. Severe left foot pain, exact etiology unclear. X-ray of the foot was unremarkable. Ultrasound was negative for DVT. Given her history of severe peripheral vascular occlusive disease I would consult vascular surgery for further evaluation. I was unable to palpate her dorsalis pedis pulse. 2. Hypertensive urgency, now blood pressure better controlled. May be attributed to noncompliance with low salt diet as well as severe pain. We will continue to monitor closely. 3. Chest pain, slightly atypical in nature. Twelve-lead EKG showed no acute ischemic changes. Serial troponin were negative. Patient was seen and evaluated by cardiology. No further testing recommended. 4. History of severe peripheral vascular occlusive disease maintained on aspirin and Plavix 5. History of CVA with chronic right-sided facial droop 6. Type 2 diabetes mellitus insulin-dependent 7. History of coronary artery disease 8. Stage IIIB chronic kidney disease
[2017-08-18] MEDS: DOCUSATE 100 MG CAP PO SCH (16:32)
[2017-08-18] MEDS: LISINOPRIL 10 MG TAB PO SCH (16:33)
[2017-08-18] MEDS: SERTRALINE 100 MG TAB PO SCH (16:33)
[2017-08-18] MEDS: MORPHINE SULFATE/PF 10MG/10ML VL IVP PRN ×2 (16:34→21:51)
[2017-08-18 17:02] LABS: Glucose,Whole Blood 188 mg/dL (75-99)
[2017-08-18] MEDS ORDERED: MELATONIN 3 MG TABLET PO SCH (21:00)
[2017-08-18 21:05] LABS: Glucose,Whole Blood 194 mg/dL (75-99)
[2017-08-18] MEDS: GABAPENTIN 300 MG CAP PO SCH (21:50)
[2017-08-18] MEDS: INSULN ASP PRT/INSULIN ASPART 100 UNIT/ML 10 ML VIAL SQ SCH (21:51)
[2017-08-19] MEDS: MORPHINE SULFATE/PF 10MG/10ML VL IVP PRN ×3 (04:12→12:13)
[2017-08-19] MEDS: NITROGLYCERIN SL TABS 0.4 MG TAB SUBLINGUAL PRN (04:20)
[2017-08-19 06:24] LABS: Glucose,Whole Blood 72 mg/dL (75-99)
[2017-08-19] MEDS: PANTOPRAZOLE 40 MG TABLET PO SCH (06:58)
[2017-08-19 07:27] LABS: Glucose,Whole Blood 91 mg/dL (75-99)
[2017-08-19] MEDS: ALBUTEROL NEBULIZED 2.5 MG/3 ML INHALATION SCH ×3 (07:47→21:18)
[2017-08-19] MEDS: GABAPENTIN 300 MG CAP PO SCH ×2 (08:09→20:51)
[2017-08-19] MEDS: ASPIRIN 81 MG PO SCH (08:09)
[2017-08-19] MEDS: DOCUSATE 100 MG CAP PO SCH (08:09)
[2017-08-19] MEDS: EZETIMIBE 10 MG TAB PO SCH (08:09)
[2017-08-19] MEDS: INSULN ASP PRT/INSULIN ASPART 100 UNIT/ML 10 ML VIAL SQ SCH ×2 (08:10→20:56)
[2017-08-19] MEDS: CLOPIDOGREL 75 MG TAB PO SCH (08:10)
[2017-08-19] MEDS: LISINOPRIL 10 MG TAB PO SCH (08:10)
[2017-08-19] MEDS: SERTRALINE 100 MG TAB PO SCH (08:10)
--- NOTE | 2017-08-19 11:35 | CONS ---
CONSULTATION This is a 71-year-old female. She is well known to me from my office. Patient has history of peripheral vascular disease. She has been treated and followed in the office in the past. The patient has been admitted with history of chest pain, history of hypertension, history of diabetes, history of coronary artery disease. PERSONAL HISTORY: Patient has history of smoking, continues to smoke. EXAMINATION: Patient was seen in her room. She is lying comfortably. NECK: Supple. No bruit appreciated. CHEST: Clear to auscultation. ABDOMEN: Soft. Femoral pulses are palpable. Posterior tibial, dorsalis pedis is not palpable present by the Doppler. The patient had big toe amputation in the past. PLAN: The patient has a chronic vascular disease well known to me from my office. The patient is medically stable. Then, I will follow in my office. I will review the chart. At this point she does not need any vascular intervention. MMODL / IJN: [id number] /
[2017-08-19 12:08] LABS: Glucose,Whole Blood 124 mg/dL (75-99)
--- NOTE | 2017-08-19 15:22 | P.DS ---
Providers Date of admission: 08/17/17 23:13 Expected date of discharge: 08/19/17 Attending physician: Mallory Hernandez Consults: 08/17/17 23:37 Consult Physician Stat Consulting Provider: [facility] Consult Reason/Comments: chest pain Do you want consulting provider notified?: Yes 08/18/17 16:16 Consult Physician Routine Consulting Provider: Ramos Menezes Consult Reason/Comments: MULT TOES AMPUTATED ON LEFT--- PAIN REDDNESS AND SWELLING ALSO PRESENT Do you want consulting provider notified?: Yes Primary care physician: [facility] Course: 1. Severe left foot pain, exact etiology unclear. X-ray of the foot was unremarkable. Ultrasound was negative for DVT. Given her history of severe peripheral vascular occlusive disease for which she was seen by vascular surgery and tenderness of follow-up in the office. 2. Hypertensive urgency, now blood pressure better controlled. May be attributed to noncompliance with low salt diet as well as severe pain. We will continue to monitor closely. 3. Chest pain, slightly atypical in nature. Twelve-lead EKG showed no acute ischemic changes. Serial troponin were negative. Patient was seen and evaluated by cardiology. No further testing recommended. 4. History of severe peripheral vascular occlusive disease maintained on aspirin and Plavix 5. History of CVA with chronic right-sided facial droop 6. Type 2 diabetes mellitus insulin-dependent 7. History of coronary artery disease 8. Stage IIIB chronic kidney disease Patient Condition at Discharge: Stable Plan - Discharge Summary Discharge Rx Participant: No New Discharge Prescriptions: Continue Sertraline HCl [Zoloft] 100 mg PO DAILY Aspirin 81 mg PO DAILY #90 chew Clopidogrel [Plavix] 75 mg PO DAILY #90 tab Ezetimibe [Zetia] 10 mg PO DAILY #90 tab Pantoprazole [Protonix] 40 mg PO AC-BRKFST #60 tab Albuterol Inhaler [Ventolin Hfa Inhaler] 2 puff INHALATION RT-TID Melatonin 6 mg PO HS Gabapentin 600 mg PO BID oxyCODONE-APAP 10-325MG [Percocet 10-325 mg] 1 tab PO TID PRN PRN Reason: Shortness Of Breath Meclizine [Antivert] 25 mg PO BID PRN #10 tab PRN Reason: Nausea Nitroglycerin Sl Tabs [Nitrostat] 0.4 mg SUBLINGUAL Q5M PRN #10 tab PRN Reason: Chest Pain Fluticasone Nasal [place] [Flonase Nasal [place]] 1 spray EA NOSTRIL RT-DAILY PRN PRN Reason: Allergy Symptoms Docusate [Colace] 100 mg PO DAILY Insulin Aspart Protam & Aspart [NovoLOG MIX 70-30 Flexpen] 22 unit SQ HS Insulin Aspart Protam & Aspart [NovoLOG MIX 70-30 Flexpen] 18 unit SQ QAM Lisinopril [Prinivil] 10 mg PO DAILY Discontinued Cilostazol [Pletal] 100 mg PO BID Discharge Medication List Sertraline HCl [Zoloft] 100 mg PO DAILY 06/02/16 [History] Aspirin 81 mg PO DAILY #90 chew 09/26/16 [Rx] Clopidogrel [Plavix] 75 mg PO DAILY #90 tab 09/26/16 [Rx] Ezetimibe [Zetia] 10 mg PO DAILY #90 tab 09/26/16 [Rx] Pantoprazole [Protonix] 40 mg PO AC-BRKFST #60 tab 10/04/16 [Rx] Albuterol Inhaler [Ventolin Hfa Inhaler] 2 puff INHALATION RT-TID 10/08/16 [ History] Melatonin 6 mg PO HS 10/08/16 [History] Gabapentin 600 mg PO BID 04/17/17 [History] Meclizine [Antivert] 25 mg PO BID PRN #10 tab 04/17/17 [Rx] Nitroglycerin Sl Tabs [Nitrostat] 0.4 mg SUBLINGUAL Q5M PRN #10 tab 04/17/17 [Rx ] oxyCODONE-APAP 10-325MG [Percocet 10-325 mg] 1 tab PO TID PRN 04/17/17 [History] Docusate [Colace] 100 mg PO DAILY 08/17/17 [History] Fluticasone Nasal [place] [Flonase Nasal [place]] 1 spray EA NOSTRIL RT-DAILY PRN [History] Insulin Aspart Protam & Aspart [NovoLOG MIX 70-30 Flexpen] 18 unit SQ QAM [History] Insulin Aspart Protam & Aspart [NovoLOG MIX 70-30 Flexpen] 22 unit SQ HS [History] Lisinopril [Prinivil] 10 mg PO DAILY 08/17/17 [History] Follow up Appointment(s)/Referral(s): Mallory Hernandez MD [Primary Care Provider] - 3 Days Discharge Disposition: HOME SELF-CARE
[2017-08-19 17:06] LABS: Glucose,Whole Blood 188 mg/dL (75-99)
[2017-08-19] MEDS: oxyCODONE-APAP 10-325MG 1 EACH TAB PO PRN ×2 (17:52→23:46)
[2017-08-19 20:20] LABS: Glucose,Whole Blood 234 mg/dL (75-99)
[2017-08-19] MEDS: hydrALAZINE HCL 25 MG TAB PO SCH (20:51)
[2017-08-19] MEDS: MELATONIN 3 MG TABLET PO SCH (20:52)
[2017-08-20 02:59] LABS: Glucose,Whole Blood 77 mg/dL (75-99)
[2017-08-20] MEDS: oxyCODONE-APAP 10-325MG 1 EACH TAB PO PRN ×3 (06:44→19:57)
[2017-08-20 07:01] LABS: Glucose,Whole Blood 137 mg/dL (75-99)
[2017-08-20] MEDS: ALBUTEROL NEBULIZED 2.5 MG/3 ML INHALATION SCH ×3 (07:35→18:53)
[2017-08-20] MEDS: SERTRALINE 100 MG TAB PO SCH (09:24)
[2017-08-20] MEDS: GABAPENTIN 300 MG CAP PO SCH ×2 (09:24→19:57)
[2017-08-20] MEDS: CLOPIDOGREL 75 MG TAB PO SCH (09:25)
[2017-08-20] MEDS: PANTOPRAZOLE 40 MG TABLET PO SCH (09:25)
[2017-08-20] MEDS: EZETIMIBE 10 MG TAB PO SCH (09:25)
[2017-08-20] MEDS: hydrALAZINE HCL 25 MG TAB PO SCH ×2 (09:25→19:57)
[2017-08-20] MEDS: ASPIRIN 81 MG PO SCH (09:25)
[2017-08-20] MEDS: LISINOPRIL 20 MG TAB PO SCH (09:25)
[2017-08-20] MEDS: DOCUSATE 100 MG CAP PO SCH (09:25)
[2017-08-20 11:08] LABS: Glucose,Whole Blood 185 mg/dL (75-99)
[2017-08-20] MEDS: INSULN ASP PRT/INSULIN ASPART 100 UNIT/ML 10 ML VIAL SQ SCH ×2 (12:31→22:18)
[2017-08-20 14:12] VITALS: RESP 16
--- NOTE | 2017-08-20 14:52 | P.PN ---
Subjective Patient is medically cleared for discharge. Her legal guardian refused for her to go home alone and is requesting placement on Monday. Objective - Vital Signs Vital signs: Vital Signs Temp 98.3 F 08/20/17 14:11 Pulse 64 08/20/17 14:11 Resp 16 08/20/17 14:11 BP 152/74 08/20/17 14:11 Pulse Ox 93 L 08/20/17 14:11 Intake & Output 08/19/17 08/20/17 08/20/17 18:59 06:59 18:59 Intake Total 0 360 Output Total 75 Balance 0 -75 360 Weight 65 kg Intake: Intake, IV Titration 0 Amount Sodium Chloride 0.9% 1, 0 000 ml @ 20 mls/hr IV . Q24H ONE Rx#:[id number] Oral 360 Output: Urine 75 Other: Voiding Method Toilet Bedside Commode # Voids 2 # Bowel Movements 1 - Exam General: The patient is awake and alert, in no distress Eye: there is normal conjunctiva bilaterally. Neck: The neck is supple, there is no JVD. Cardiovascular: Normal S1-S2, no S3-S4, no murmurs. Respiratory: Lungs clear to auscultation bilaterally Gastrointestinal: Abdomen is soft, nontender Musculoskeletal: There is no pedal edema. Neurological:. Speech is normal. Skin: Skin is warm and dry - Labs CBC & Chem 7: 08/17/17 20:29 08/17/17 20:29 Labs: Abnormal Lab Results - Last 24 Hours (Table) 08/19/17 08/19/17 08/20/17 Range/Units 16:58 20:17 06:55 POC Glucose (mg/dL) 188 H 234 H 137 H (75-99) mg/dL 08/20/17 Range/Units 11:00 POC Glucose (mg/dL) 185 H (75-99) mg/dL Microbiology - Last 24 Hours (Table) 08/17/17 20:29 Blood Culture - Preliminary Blood No Growth after 48 hours Assessment and Plan Assessment: 1. Severe left foot pain, exact etiology unclear. X-ray of the foot was unremarkable. Ultrasound was negative for DVT. Given her history of severe peripheral vascular occlusive disease I would consult vascular surgery for further evaluation. I was unable to palpate her dorsalis pedis pulse. 2. Hypertensive urgency, now blood pressure better controlled. May be attributed to noncompliance with low salt diet as well as severe pain. We will continue to monitor closely. 3. Chest pain, slightly atypical in nature. Twelve-lead EKG showed no acute ischemic changes. Serial troponin were negative. Patient was seen and evaluated by cardiology. No further testing recommended. 4. History of severe peripheral vascular occlusive disease maintained on aspirin and Plavix 5. History of CVA with chronic right-sided facial droop 6. Type 2 diabetes mellitus insulin-dependent 7. History of coronary artery disease 8. Stage IIIB chronic kidney disease Patient is medically cleared for discharge. Her legal guardian refused for her to go home alone and is requesting placement on Monday.
[2017-08-20] MEDS ORDERED: amLODIPine 2.5 MG TAB PO SCH (15:00)
[2017-08-20 17:08] LABS: Glucose,Whole Blood 188 mg/dL (75-99)
[2017-08-20] MEDS: MELATONIN 3 MG TABLET PO SCH (19:56)
[2017-08-20 20:50] LABS: Glucose,Whole Blood 174 mg/dL (75-99)
[2017-08-20] MEDS: hydrALAZINE HCL 50 MG TAB PO SCH (22:18)
[2017-08-21] MEDS: oxyCODONE-APAP 10-325MG 1 EACH TAB PO PRN ×2 (01:24→09:21)
[2017-08-21] MEDS: ALBUTEROL NEBULIZED 2.5 MG/3 ML INHALATION SCH ×2 (08:10→14:08)
[2017-08-21 08:56] VITALS: TEMP 98.1
[2017-08-21] MEDS: LISINOPRIL 20 MG TAB PO SCH (09:19)
[2017-08-21] MEDS: ASPIRIN 81 MG PO SCH ×2 (09:19→09:20)
[2017-08-21] MEDS: EZETIMIBE 10 MG TAB PO SCH (09:19)
[2017-08-21] MEDS: GABAPENTIN 300 MG CAP PO SCH (09:19)
[2017-08-21] MEDS: PANTOPRAZOLE 40 MG TABLET PO SCH (09:20)
[2017-08-21] MEDS: SERTRALINE 100 MG TAB PO SCH (09:20)
[2017-08-21] MEDS: hydrALAZINE HCL 50 MG TAB PO SCH (09:20)
[2017-08-21] MEDS: DOCUSATE 100 MG CAP PO SCH (09:21)
[2017-08-21] MEDS: CLOPIDOGREL 75 MG TAB PO SCH (09:21)
[2017-08-21 09:32] LABS: Glucose,Whole Blood 56 mg/dL (75-99)
[2017-08-21 09:32] LABS: Glucose,Whole Blood 58 mg/dL (75-99)
[2017-08-21] MEDS: INSULN ASP PRT/INSULIN ASPART 100 UNIT/ML 10 ML VIAL SQ SCH (09:36)
[2017-08-21 09:37] LABS: Glucose,Whole Blood 85 mg/dL (75-99)
[2017-08-21] MEDS: NITROGLYCERIN SL TABS 0.4 MG TAB SUBLINGUAL PRN ×2 (10:21→10:56)
[2017-08-21 10:24] VITALS: BP 124/67; PULSE 68
[2017-08-21 11:34] LABS: Glucose,Whole Blood 162 mg/dL (75-99)
== END 2017-08-21 15:10 | disposition home or self-care (01) ==
LOC: EC 19:39 → 6SEL 23:13 → 3SUR 08-19 18:32
PROVIDERS: ADMIT Internal Medicine; ATTEND Internal Medicine
DX: M79.672 Pain in left foot (principal); I16.0 Hypertensive urgency; I12.9 Hypertensive chronic kidney disease with stage 1 through stage 4 chronic kidney disease, or unspecified chronic kidney disease; N18.3 Chronic kidney disease, stage 3 (moderate); E11.22 Type 2 diabetes mellitus with diabetic chronic kidney disease; E11.42 Type 2 diabetes mellitus with diabetic polyneuropathy; E11.51 Type 2 diabetes mellitus with diabetic peripheral angiopathy without gangrene; R07.89 Other chest pain; Z89.422 Acquired absence of other left toe(s); J44.9 Chronic obstructive pulmonary disease, unspecified; I25.10 Atherosclerotic heart disease of native coronary artery without angina pectoris; E78.5 Hyperlipidemia, unspecified; M19.90 Unspecified osteoarthritis, unspecified site; F41.9 Anxiety disorder, unspecified; F32.9 Major depressive disorder, single episode, unspecified; F17.210 Nicotine dependence, cigarettes, uncomplicated; Q60.0 Renal agenesis, unilateral; I69.992 Facial weakness following unspecified cerebrovascular disease; Z76.5 Malingerer [conscious simulation]; Z95.5 Presence of coronary angioplasty implant and graft; Z91.14 Patient's other noncompliance with medication regimen; Z79.4 Long term (current) use of insulin; Z79.02 Long term (current) use of antithrombotics/antiplatelets; Z79.82 Long term (current) use of aspirin; Z79.899 Other long term (current) drug therapy; Z79.51 Long term (current) use of inhaled steroids; Z88.0 Allergy status to penicillin; Z88.2 Allergy status to sulfonamides; Z88.1 Allergy status to other antibiotic agents; Z91.041 Radiographic dye allergy status; I25.2 Old myocardial infarction; Z86.718 Personal history of other venous thrombosis and embolism; Z87.01 Personal history of pneumonia (recurrent); Z87.442 Personal history of urinary calculi; Z83.3 Family history of diabetes mellitus; Z82.49 Family history of ischemic heart disease and other diseases of the circulatory system; Z80.9 Family history of malignant neoplasm, unspecified; Z84.1 Family history of disorders of kidney and ureter
CPT/HCPCS: 99285 ×2; 96374 ×2; 96375 ×3; 96376 ×4; 36415; 94640 ×5; 94760; 93005; 80061; 80053; 82550; 82553; 84484 ×2; 85025; 85610; 85730; 87040; 73630; 71046; 93971; G0378 ×5; J0360; J2270 ×3